=== PATIENT | female | born 1930 | race Caucasian/White ===

== ENCOUNTER 2016-10-12 18:51 | Inpatient (IN) | payer MEDICARE ==
[~2016-10-12] VITALS: Ht 152.4 cm; Wt 88.9 kg
[~2016-10-12 18:51] MED LIST: ALLO300T PO; ASPI81TA50 PO; CEPH-264 PO; CIPR500T PO; DOXY100T PO; FERR-26 PO; FURO40TA4 PO; LEVO75TA5 PO; PANT40TA3 PO; POTA20TA12 PO; SIMV80TA3 PO
[2016-10-12 19:31] LABS: BASO # 0.1 x10^3/uL (0.0-0.2); BASO % 0 % (0-3); EOS % 0 % (0-3); HEMOGLOBIN 13.3 g/dL (12.0-15.5); LYMPH # 0.8 x10^3/uL (1.0-4.8); LYMPH % 5 % (24-48); MEAN CORPUSCULAR HEMOGLOBIN 30 pg (25-35); MEAN CORPUSCULAR HGB CONC 33 g/dL (31-37); MEAN CORPUSCULAR VOLUME 91 fL (79-100); MONO % 3 % (0-9); NEUT % 91 % (31-73); PLATELET COUNT 227 x10^3/uL (140-400); RED BLOOD COUNT 4.39 x10^6/uL (3.50-5.40); WHITE BLOOD COUNT 16.2 x10^3/uL (4.0-11.0)
[2016-10-12 19:49] LABS: CALCIUM 9.3 mg/dL (8.5-10.1); CREATININE 1.3 mg/dL (0.6-1.0); POTASSIUM 4.3 mmol/L (3.5-5.1)
[2016-10-12 20:00] LABS: BILIRUBIN,URINE NEGATIVE (NEG); GLUCOSE,URINE NEGATIVE (NEG); NITRITE,URINE NEGATIVE (NEG); PROTEIN,URINE NEGATIVE (NEG-TRACE); UROBILINOGEN,URINE 0.2 mg/dL (0.2 mg/dL)
[2016-10-12 20:05] LABS: RBC,URINE >40 /HPF (0-2)
[2016-10-12 20:06] LABS: BACTERIA,URINE MANY /HPF (0-FEW); SQUAMOUS EPITHELIAL CELL,UR FEW /LPF
[2016-10-12 20:07] LABS: ALBUMIN 3.9 g/dL (3.4-5.0); ALBUMIN/GLOBULIN RATIO 1.1 (1.0-1.7); TOTAL BILIRUBIN 0.4 mg/dL (0.2-1.0); TOTAL PROTEIN 7.3 g/dL (6.4-8.2)
[2016-10-12] MEDS ORDERED: ACETAMINOPHEN 500 MG TABLET PO ONE (21:00)
[2016-10-12] MEDS ORDERED: IV NORMAL SALINE 1000ML BAG 1,000 ML IV ONE (21:00)
[2016-10-12] MEDS ORDERED: ONDANSETRON PF 4 MG/2 ML VIAL. IV ONE (21:00)
[2016-10-12] MEDS ORDERED: VANCOMYCIN 2 GM in IV NORMAL SALINE 500ML BAG 500 ML IV ONE (21:00)
[2016-10-12 21:01] LABS: PLT ESTIMATE ADEQUATE (ADEQUATE); TOXIC GRANULATION SLIGHT; TOXIC VACUOLATION SLIGHT
[2016-10-12] MEDS: fentaNYL PF VIAL 100 MCG/2 ML VIAL IV PRN (21:06)
[2016-10-12] MEDS: CEFEPIME HCL 2 GM in IV NORMAL SALINE 100ML 100 ML IV SCH (21:08)
[2016-10-12] MEDS ORDERED: ONDANSETRON PF 4 MG/2 ML VIAL. IV PRN (22:00)
[2016-10-12] MEDS ORDERED: DEXTROSE 50% 25 GM / 50ML DISP.SYRIN. IV PRN (22:00)
[2016-10-12] MEDS ORDERED: ACETAMINOPHEN 325 MG TABLET. PO PRN (22:00)
[2016-10-12 22:30] VITALS: BP 119/56
--- NOTE | 2016-10-12 23:09 | ED.ADGEN ---
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 Patient denies any abdominal pain, states she has occasional cough that is productive of clear sputum but is her typical cough, denies any focal weakness, numbness, tingling, travel, surgery, sick contacts or exposures. States he started feeling ill for the past 2 days. Decreased appetite, with chills and subjective fever reported at home. Denies any diarrhea, states she has occasional nausea, no vomiting. States that she's had increased swelling and redness in her bilateral lower extremities. Patient is relatively limited historian. Her primary care provider per report is Dr. Serrano. Patient noted be tachycardic, heart rate in the 1 teens, blood pressure is 170s over 80s. Oxygen saturation is 95-97% on room air, respiratory rate is 20 and unlabored. Review of Systems Review of Systems Constitutional: Subjective fever and chills, generalized malaise and weakness.. [] Eyes: Denies change in visual acuity. [] HENT: Denies nasal congestion or sore throat. [] Respiratory: Occasional cough, no shortness of breath. Cardiovascular: Denies chest pain or edema. [] GI: Denies abdominal pain, nausea, vomiting, bloody stools or diarrhea. [] : Denies dysuria. [] Musculoskeletal: Denies back pain, swelling and redness in the bilateral lower extremities. Integument: Denies rash. [] Neurologic: Denies headache, focal weakness or sensory changes. [] Endocrine: Denies polyuria or polydipsia. [] Lymphatic: Denies swollen glands. [] Psychiatric: Denies depression or anxiety. [] Current Medications Current Medications Current Medications Medications (Trade) Dose Ordered Sig/Dimple Start Time Stop Time Status Last Admin Dose Admin Acetaminophen (Tylenol) 1,000 mg 1X ONCE 10/12/16 21:00 10/12/16 21:01 DC 10/12/16 21:03 1,000 MG Cefepime HCl 2 gm/ Sodium Chloride 100 ml @ 200 mls/hr BID 10/12/16 21:00 10/12/16 21:08 200 MLS/HR Fentanyl Citrate (Fentanyl 2ml Vial) 25 mcg PRN Q15MIN PRN 10/12/16 20:45 10/13/16 20:44 10/12/16 21:06 25 MCG Ondansetron HCl (Zofran) 4 mg 1X ONCE 10/12/16 21:00 10/12/16 21:01 DC 10/12/16 21:07 4 MG Sodium Chloride 1,000 ml @ 1,000 mls/hr 1X ONCE 10/12/16 21:00 10/12/16 21:59 DC 10/12/16 21:01 1,000 MLS/HR Vancomycin HCl (Vanco Per Pharmacy) 1 each PRN DAILY PRN 10/12/16 20:45 Vancomycin HCl 2 gm/Sodium Chloride 500 ml @ 250 mls/hr 1X ONCE 10/12/16 21:00 10/12/16 22:59 10/12/16 21:43 250 MLS/HR Allergies Allergies Allergies Coded Allergies Type Severity Reaction Last Updated Verified No Known Drug Allergies 03/02/14 No Physical Exam Physical Exam Constitutional: Well developed, well nourished, mild distress secondary to pain , ill in appearance, flushed.. [] HENT: Normocephalic, atraumatic, bilateral external ears normal, oropharynx moist, no oral exudates, nose normal. [] Eyes: PERRLA, EOMI, conjunctiva normal, no discharge. [] Neck: Normal range of motion, no tenderness, supple, no stridor. [] Cardiovascular: Tachycardic, S1, S2, no murmur, no rubs or gallops. [] Lungs & Thorax: Diminished breath sounds at bases bilaterally, no wheezing, rhonchi or rales. [] Abdomen: Bowel sounds normal, soft, obese, no rebound, rigidity, no guarding no tenderness, no masses, no pulsatile masses. [] Skin: Warm, dry, patient with erythema, excoriations noted on the lower extremities bilaterally, patient with multiple large papular growths on the anterior anterior tibial region bilaterally, with mild edema. Legs are warm to touch. Back: No tenderness, no CVA tenderness. [] Extremities: No tenderness, no cyanosis, no clubbing, ROM intact, no edema. [] Neurologic: Alert and oriented X 3, normal motor function, normal sensory function, no focal deficits noted. [] Psychologic: Affect normal, judgement normal, mood normal. [] Current Patient Data Vital Signs Vital Signs Date Time Temp Pulse Resp B/P (MAP) Pulse Ox O2 Delivery O2 Flow Rate FiO2 10/12/16 21:16 102.2 112 22 130/63 (85) 94 Room Air 102.2 Lab Values Laboratory Tests Test 10/12/16 19:17 10/12/16 19:55 White Blood Count 16.2 x10^3/uL (4.0-11.0) H Red Blood Count 4.39 x10^6/uL (3.50-5.40) Hemoglobin 13.3 g/dL (12.0-15.5) Hematocrit 40.0 % (36.0-47.0) Mean Corpuscular Volume 91 fL (79-100) Mean Corpuscular Hemoglobin 30 pg (25-35) Mean Corpuscular Hemoglobin Concent 33 g/dL (31-37) Red Cell Distribution Width 15.0 % (11.5-14.5) H Platelet Count 227 x10^3/uL (140-400) Neutrophils (%) (Auto) 91 % (31-73) H Lymphocytes (%) (Auto) 5 % (24-48) L Monocytes (%) (Auto) 3 % (0-9) Eosinophils (%) (Auto) 0 % (0-3) Basophils (%) (Auto) 0 % (0-3) Neutrophils # (Auto) 14.7 x10^3uL (1.8-7.7) H Lymphocytes # (Auto) 0.8 x10^3/uL (1.0-4.8) L Monocytes # (Auto) 0.5 x10^3/uL (0.0-1.1) Eosinophils # (Auto) 0.0 x10^3/uL (0.0-0.7) Basophils # (Auto) 0.1 x10^3/uL (0.0-0.2) Segmented Neutrophils % 71 % (35-66) H Band Neutrophils % 16 % (0-9) H Lymphocytes % 9 % (24-48) L Monocytes % 4 % (0-10) Toxic Granulation Slight Toxic Vacuolation Slight Platelet Estimate Adequate (ADEQUATE) Sodium Level 142 mmol/L (136-145) Potassium Level 4.3 mmol/L (3.5-5.1) Chloride Level 104 mmol/L (98-107) Carbon Dioxide Level 27 mmol/L (21-32) Anion Gap 11 (6-14) Blood Urea Nitrogen 31 mg/dL (7-20) H Creatinine 1.3 mg/dL (0.6-1.0) H Estimated GFR (Cockcroft-Gault) 39.0 BUN/Creatinine Ratio 24 (6-20) H Glucose Level 123 mg/dL (70-99) H Lactic Acid Level 2.0 mmol/L (0.4-2.0) Calcium Level 9.3 mg/dL (8.5-10.1) Total Bilirubin 0.4 mg/dL (0.2-1.0) Aspartate Amino Transferase (AST) 20 U/L (15-37) Alanine Aminotransferase (ALT) 15 U/L (14-59) Alkaline Phosphatase 83 U/L (46-116) Total Protein 7.3 g/dL (6.4-8.2) Albumin 3.9 g/dL (3.4-5.0) Albumin/Globulin Ratio 1.1 (1.0-1.7) Urine Collection Type U cath Urine Color Yellow Urine Clarity Clear Urine pH 6.0 Urine Specific [place] <=1.005 Urine Protein Negative mg/dL (NEG-TRACE) Urine Glucose (UA) Negative mg/dL (NEG) Urine Ketones (Stick) Negative mg/dL (NEG) Urine Blood Large (NEG) Urine Nitrite Negative (NEG) Urine Bilirubin Negative (NEG) Urine Urobilinogen Dipstick 0.2 mg/dL (0.2 mg/dL) Urine Leukocyte Esterase Small (NEG) Urine RBC >40 /HPF (0-2) Urine WBC 1-4 /HPF (0-4) Urine Squamous Epithelial Cells Few /LPF Urine Bacteria Many /HPF (0-FEW) Urine Hyaline Casts Occasional /HPF Urine Mucus Slight /LPF Laboratory Tests 10/12/16 19:17 Laboratory Tests 10/12/16 19:17 EKG EKG EC: Sinus tachycardia, heart rate 103 beats minute, upright axis, QTC of 418, DE 174, QRS of 86, no ST elevations or depressions, contour normality is noted in the anterior septal leads, abnormal ECG, does not meet STEMI criteria. As interpreted by me. [] Radiology/Procedures Radiology/Procedures Chest x-ray: One view: Patient slightly rotated with an enlarged cardiac silhouette and a tortuous aorta, no discrete infiltrate, effusion, no pneumothorax, or bony or soft tissue normality identified. No significant change from previous chest x-ray 05/22/2014. As interpreted by me. [] Course & Med Decision Making Course & Med Decision Making Pertinent Labs and Imaging studies reviewed. (See chart for details) Patient tachycardic, febrile, had taken Tylenol home, received additional Tylenol in the ED. IV fluids also infused, patient with a lactic that was normal , reveal a gross cytosis of 16.2 with a bandemia and left shift. Chest x-ray was unremarkable, urinalysis did not reveal evidence of a large infection, examination of patient's lower extremities reveals erythema and swelling, patient is scratching her legs well, has excoriations, with multiple large papular lesions which have been present for several years. Will treat with cefepime and vancomycin, for cellulitis with sepsis. Patient is agreeable for admission to the hospital, and consultation with infectious disease due to previous, complicated course. Findings as above discussed with Dr. Dennis internal medicine, patient accepted to service as a full admission with plan as above. Bridge orders entered per discussion. Dragon Disclaimer Dragon Disclaimer This electronic medical record was generated, in whole or in part, using a voice recognition dictation system. Departure Impression: Primary Impression: Cellulitis of lower extremity Disposition: ADMITTED INPATIENT Admitting Physician: Yonatan Dennis Condition: IMPROVED ANIRUDH RIVERA DO October 12, 2016 23:09
[2016-10-12] MEDS: IV NORMAL SALINE 1000ML BAG 1,000 ML IV SCH (23:27)
--- NOTE | 2016-10-12 23:29 | RAD ---
Bilateral lower extremity venous doppler ultrasound History: Chronic bilateral lower extremity swelling Comparison: None Findings: Multiple grayscale, color, and duplex spectral analysis sonographic images were acquired of the bilateral lower extremity veins to evaluate for the presence of DVT. There is normal phasicity. Normal compression, color-flow, and augmentation is demonstrated from the bilateral common femoral to the popliteal veins. There is normal color flow of the proximal greater saphenous and profunda femoris veins. There is normal color flow of segments of the calf veins. Impression: 1. There is no evidence of deep venous thrombosis from the bilateral common femoral to popliteal veins. Electronically signed by: Sam Barton MD (10/12/2016 11:26 PM)
[2016-10-12] MEDS ORDERED: ALLO100T PO (23:34)
[2016-10-12] MEDS ORDERED: PANT40TA5 PO (23:34)
[2016-10-12] MEDS ORDERED: CITA10TA8 PO (23:34)
[2016-10-13] MEDS: fentaNYL PF VIAL 100 MCG/2 ML VIAL IV PRN (03:52)
[2016-10-13] MEDS: VANCOMYCIN PER PHARMACY MC PRN ×2 (03:57→13:45)
[2016-10-13 03:59] VITALS: BP 128/67
[2016-10-13 05:13] LABS: BASO % 0 % (0-3); EOS % 0 % (0-3); HEMATOCRIT 36.9 % (36.0-47.0); HEMOGLOBIN 11.9 g/dL (12.0-15.5); LYMPH # 0.7 x10^3/uL (1.0-4.8); LYMPH % 4 % (24-48); MEAN CORPUSCULAR HEMOGLOBIN 30 pg (25-35); MEAN CORPUSCULAR HGB CONC 32 g/dL (31-37); MEAN CORPUSCULAR VOLUME 93 fL (79-100); MONO % 3 % (0-9); NEUT % 93 % (31-73); PLATELET COUNT 201 x10^3/uL (140-400); RED BLOOD COUNT 3.96 x10^6/uL (3.50-5.40); RED CELL DISTRIBUTION WIDTH 14.9 % (11.5-14.5); WHITE BLOOD COUNT 19.5 x10^3/uL (4.0-11.0)
[2016-10-13 05:29] LABS: CALCIUM 8.2 mg/dL (8.5-10.1); CREATININE 1.3 mg/dL (0.6-1.0); POTASSIUM 4.2 mmol/L (3.5-5.1)
[2016-10-13 07:00] VITALS: BP 116/71
--- NOTE | 2016-10-13 07:40 | EKG ---
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
[2016-10-13] MEDS: IV NORMAL SALINE 1000ML BAG 1,000 ML IV SCH ×2 (07:56→14:30)
[2016-10-13] MEDS ORDERED: INSULIN ASPART 300 UNITS/3 ML INSULN.PEN SQ SCH (08:00)
--- NOTE | 2016-10-13 08:06 | RAD ---
EXAM: Chest, single view. HISTORY: Weakness. COMPARISON: 05/22/2014. FINDINGS: A frontal view of the chest is obtained. There is no infiltrate, effusion or pneumothorax. The heart is normal in size. There is superior migration of the right humeral head with decreased subacromial space due to a chronic rotator cuff tear. IMPRESSION: No acute pulmonary finding.
--- NOTE | 2016-10-13 09:36 | ACF ---
Admission Forms Criteria CELLULITIS Clinical Indications for Admission to Inpatient Care (Place 'X' for any and all applicable criteria): Admission is indicated for ANY ONE of the following(1)(2)(3)(4)(5): [ ]I. Limb-threatening infection [ ]II. High-risk comorbid condition as indicated by ANY ONE of the following: [ ]a) Uncontrolled diabetes (eg, HbA1c greater than 10% (0.1)) [ ]b) Cirrhosis [ ]c) Neutropenia [ ]d) Asplenia [ ]e) Immunosuppression [ ]f) Symptomatic heart failure [ ]III. Failure of outpatient therapy as indicated by ALL of the following: [ ]a) Progression or no improvement after adequate trial (minimum of 48 hours, with longer period for stable lower extremity infection) [ ]b) Adequate antibiotic regimen as indicated by use of ANY ONE of the following: [ ]i) First-generation cephalosporin (e.g., cephalexin) [ ]ii) Antistaphylococcal penicillin (e.g., dicloxacillin) [ ]iii) Penicillin-allergic patient regimen (clindamycin, extended-spectrum fluoroquinolone, or doxycycline) [ ]iv) Resistant organism (eg, methicillin-resistant Staphylococcus aureus) regimen (6) [ ]c) Outpatient intravenous therapy regimen is not appropriate due to ANY ONE of the following. (7)(8)(9)(10): [ ]i) It was tried and was not successful (eg, progression of infection). [ ]ii) It is not available or cannot be arranged in a clinically appropriate time frame (e.g., the next day). [ ]iii) Clinical presentation (eg, acuity of infection, rapidity of progression, confirmed or suspected bacteremia) is judged to require ALL of the following: [ ]1) Immediate initiation of intravenous therapy ( eg, cannot wait for next day) [ ]2) Intensity of patient monitoring and observation (eg, vital sign measurement, checks for infection progression) that cannot be provided at other than inpatient level of care [ ]IV. Mental status changes [ ]V. Bacteremia [X]. Hemodynamic instability [ ]VII. Suspected necrotizing soft tissue infection (e.g., gas in tissue)(11)( 12) [ ]VIII. Orbital infection (13)(14) [ ]IX. Associated surgical procedure (e.g., abscess drainage, debridement) not amenable to outpatient, emergency department, or observation care [ ]X. Cutaneous gangrene [ ]XI. High fever (temperature greater than 39.5 degrees C (103.1 degrees F) (oral)) not responsive to outpatient, emergency department, or observation care therapy [X]XIII. Inpatient admission required rather than observation care (Also use Cellulitis: Observation Care as appropriate) because of ANY ONE of the following : [ ]a) Periorbital or perineal infection that is severe or worsening [ ]b) Severe pain requiring acute inpatient management [X]c) IV fluid to replace significant ongoing (e.g., for over 24 hours) losses (greater than 3L/m2 per day) [ ]d) Compartment syndrome monitoring (17) [ ]e) Strict or protective (eg, laminar flow) isolation [ ]f) Urgent debridement or skin grafting [ ]g) Bone or joint debridement [ ]h) Immediate inpatient surgery [ ]i) Other condition, treatment or monitoring requiring inpatient admission Extended stay beyond goal length of stay may be needed for (1)(18): [ ]a) Necrotizing soft tissue infection or fasciitis [ ]b) Gram-negative infection [ ]c) Methicillin-resistant Staphylococcal aureus (MRSA) infection [ ]d) Peripheral venous insufficiency with cellulitis [ ]e) Extensive edema [ ]f) Sepsis or continued Hemodynamic instability [ ]g) Continued high fever or mental status change [ ]h) Bacteremia [ ]i) Active serious comorbid conditions ( eg, heart failure, renal insufficiency) The original [id number] content created by [facility] [employer] has been revised. The portions of the content which have been revised are identified through the use of italic text or in bold, and [facility] has neither reviewed nor approved the modified material. All other unmodified content is copyright [facility] [employer] Please see references footnoted in the original [facility] [employer] edition 2016 Admission Criteria Met?: Yes ERIC MALIN October 13, 2016 09:36
[2016-10-13] MEDS: CEFEPIME HCL 2 GM in IV NORMAL SALINE 100ML 100 ML IV SCH (10:00)
[2016-10-13] MEDS ORDERED: ACETAMINOPHEN 325 MG TABLET. PO PRN (10:15)
[2016-10-13] MEDS ORDERED: MORPHINE SULFATE 2 MG/ML DISP.SYRIN. IV PRN (10:15)
[2016-10-13] MEDS ORDERED: DOCUSATE SODIUM 100 MG CAPSULE. PO PRN (10:15)
[2016-10-13] MEDS ORDERED: hydrALAZINE 20 MG/ML VIAL. IVP PRN (10:15)
[2016-10-13 11:00] VITALS: BP 118/63
--- NOTE | 2016-10-13 12:44 | RAD ---
EXAM: Head and maxillofacial bone CT without contrast. HISTORY: Trauma. TECHNIQUE: Computed tomographic images of the head and maxillofacial bones were obtained without contrast. One or more of the following individualized dose reduction techniques were utilized for this examination: 1. Automated exposure control. 2. Adjustment of the mA and/or kV according to patient size. 3. Use of iterative reconstruction technique. COMPARISON: None. FINDINGS: Head: There is no acute or subacute hemorrhage. There is no mass effect or midline shift. There is no hydrocephalus. There is decreased attenuation within the cerebral white matter, likely due to chronic small vessel disease. No calvarial lesion is seen. The left mastoid air cells are clear. The right mastoid air cells are underpneumatized. Maxillofacial bones: No displaced fracture is seen. There is severe mucosal thickening involving the left maxillary sinus and sinus wall thickening due to the sequela of chronic sinusitis. There is obstruction of the left ostiomeatal unit. There are maxillary antrostomy/uncinectomy changes. There is no significant nasal septal deviation. No orbital lesion is seen. IMPRESSION: 1. No acute intracranial finding or evidence of acute maxillofacial bone trauma. 2. Decreased attenuation within the cerebral white matter, likely due to chronic small vessel disease. 3. Severe chronic left maxillary sinus disease at evidence of prior bilateral maxillary antrostomy/uncinectomy surgery.
--- NOTE | 2016-10-13 12:58 | RAD ---
EXAM: Cervical spine CT without contrast. HISTORY: Pain. TECHNIQUE: Computed tomographic images of the cervical spine were obtained without contrast. Multiplanar reformatting was performed. COMPARISON: 04/16/2012. FINDINGS: There is kyphosis centered at the cervicothoracic junction. There is slight anterolisthesis of C3 on C4, C4-C5, C5 on C6, C6 on C7 and C7 on T1. There is degenerative endplate remodeling with anterior predominant osteophytosis at the mid and lower cervical vertebral levels. There is additional endplate remodeling and facet arthropathy throughout the cervical spine. This is described in detail below. There is fusion of the right C2-C4 facet joints, degenerative in etiology. No suspicious lytic or chronic osseous lesion is seen. There is an erosion at the right base of the dens, a nonspecific finding which can be seen with rheumatoid arthropathy. At C2-C3, there is no stenosis. At C3-C4, there is endplate remodeling. There is severe right and moderate to severe left facet arthropathy. There is moderate right and mild left foraminal stenosis. At C4-C5, there is a disc bulge and endplate remodeling. There is mild to moderate left facet arthropathy. There is left radius and right uncovertebral arthropathy. There is moderate left greater than right foraminal stenosis. At C5-C6, there is a disc bulge and endplate osteophytosis. There is mild facet arthropathy. There is uncovertebral arthropathy. There is moderate lateral foraminal stenosis. At C6-C7, there is a disc bulge and endplate osteophytosis. There is mild right facet arthropathy. There is uncovertebral arthropathy. There is moderate right and mild left foraminal stenosis. There is mild central canal stenosis. IMPRESSION: 1. Multilevel degenerative change throughout the cervical spine, resulting in stenosis as described above. 2. No acute osseous finding. PQRS Compliance Statement: One or more of the following individualized dose reduction techniques were utilized for this examination: 1. Automated exposure control 2. Adjustment of the mA and/or kV according to patient size 3. Use of iterative reconstruction technique
--- NOTE | 2016-10-13 13:06 | PDOC ---
Infectious Disease Note Vital Sign Vital Signs Vital Signs Date Time Temp Pulse Resp B/P (MAP) Pulse Ox O2 Delivery O2 Flow Rate FiO2 10/13/16 11:00 98.3 66 20 118/63 (81) 96 98.3 10/13/16 07:00 Room Air Labs Lab Laboratory Tests Test 10/12/16 19:17 10/12/16 19:55 10/13/16 04:00 10/13/16 07:03 White Blood Count 16.2 x10^3/uL (4.0-11.0) 19.5 x10^3/uL (4.0-11.0) Red Blood Count 4.39 x10^6/uL (3.50-5.40) 3.96 x10^6/uL (3.50-5.40) Hemoglobin 13.3 g/dL (12.0-15.5) 11.9 g/dL (12.0-15.5) Hematocrit 40.0 % (36.0-47.0) 36.9 % (36.0-47.0) Mean Corpuscular Volume 91 fL (79-100) 93 fL (79-100) Mean Corpuscular Hemoglobin 30 pg (25-35) 30 pg (25-35) Mean Corpuscular Hemoglobin Concent 33 g/dL (31-37) 32 g/dL (31-37) Red Cell Distribution Width 15.0 % (11.5-14.5) 14.9 % (11.5-14.5) Platelet Count 227 x10^3/uL (140-400) 201 x10^3/uL (140-400) Neutrophils (%) (Auto) 91 % (31-73) 93 % (31-73) Lymphocytes (%) (Auto) 5 % (24-48) 4 % (24-48) Monocytes (%) (Auto) 3 % (0-9) 3 % (0-9) Eosinophils (%) (Auto) 0 % (0-3) 0 % (0-3) Basophils (%) (Auto) 0 % (0-3) 0 % (0-3) Neutrophils # (Auto) 14.7 x10^3uL (1.8-7.7) 18.2 x10^3uL (1.8-7.7) Lymphocytes # (Auto) 0.8 x10^3/uL (1.0-4.8) 0.7 x10^3/uL (1.0-4.8) Monocytes # (Auto) 0.5 x10^3/uL (0.0-1.1) 0.5 x10^3/uL (0.0-1.1) Eosinophils # (Auto) 0.0 x10^3/uL (0.0-0.7) 0.0 x10^3/uL (0.0-0.7) Basophils # (Auto) 0.1 x10^3/uL (0.0-0.2) 0.0 x10^3/uL (0.0-0.2) Segmented Neutrophils % 71 % (35-66) Band Neutrophils % 16 % (0-9) Lymphocytes % 9 % (24-48) Monocytes % 4 % (0-10) Toxic Granulation Slight Toxic Vacuolation Slight Platelet Estimate Adequate (ADEQUATE) Sodium Level 142 mmol/L (136-145) 144 mmol/L (136-145) Potassium Level 4.3 mmol/L (3.5-5.1) 4.2 mmol/L (3.5-5.1) Chloride Level 104 mmol/L (98-107) 106 mmol/L (98-107) Carbon Dioxide Level 27 mmol/L (21-32) 25 mmol/L (21-32) Anion Gap 11 (6-14) 13 (6-14) Blood Urea Nitrogen 31 mg/dL (7-20) 32 mg/dL (7-20) Creatinine 1.3 mg/dL (0.6-1.0) 1.3 mg/dL (0.6-1.0) Estimated GFR (Cockcroft-Gault) 39.0 39.0 BUN/Creatinine Ratio 24 (6-20) Glucose Level 123 mg/dL (70-99) 126 mg/dL (70-99) Lactic Acid Level 2.0 mmol/L (0.4-2.0) Calcium Level 9.3 mg/dL (8.5-10.1) 8.2 mg/dL (8.5-10.1) Total Bilirubin 0.4 mg/dL (0.2-1.0) Aspartate Amino Transf (AST/SGOT) 20 U/L (15-37) Alanine Aminotransferase (ALT/SGPT) 15 U/L (14-59) Alkaline Phosphatase 83 U/L (46-116) Total Protein 7.3 g/dL (6.4-8.2) Albumin 3.9 g/dL (3.4-5.0) Albumin/Globulin Ratio 1.1 (1.0-1.7) Urine Collection Type U cath Urine Color Yellow Urine Clarity Clear Urine pH 6.0 Urine Specific [place] <=1.005 Urine Protein Negative mg/dL (NEG-TRACE) Urine Glucose (UA) Negative mg/dL (NEG) Urine Ketones (Stick) Negative mg/dL (NEG) Urine Blood Large (NEG) Urine Nitrite Negative (NEG) Urine Bilirubin Negative (NEG) Urine Urobilinogen Dipstick 0.2 mg/dL (0.2 mg/dL) Urine Leukocyte Esterase Small (NEG) Urine RBC >40 /HPF (0-2) Urine WBC 1-4 /HPF (0-4) Urine Squamous Epithelial Cells Few /LPF Urine Bacteria Many /HPF (0-FEW) Urine Hyaline Casts Occasional /HPF Urine Mucus Slight /LPF Glucose (Fingerstick) 131 mg/dL (70-99) Objective Assessment Fever Leukocytosis Chronic sinusitis on CT Chronic lymphedema lower extremities Neck pain h/o fall CKD. h/o right nephrectomy h/o Enterobacter (Sen aminoglycosides, carbapenems & quinolones) in past but did ok with previous Keflex. Plan Plan of Care vanc and cefepime agree for now Monitor WBC, Cr and temp f/u cultures Reviewed previous notes from previous admits Thank you Attending Co-Sign Attending Co-Sign The patient was seen and interviewed as well as examined at the bedside. The chart was reviewed. The case was discussed. Agree with the plan of care. MICHAEL PEREZ APRN October 13, 2016 13:06 OCTAVIANO OVALLE MD October 13, 2016 14:51
--- NOTE | 2016-10-13 13:09 | PDOC1 ---
History and Physical Date of Admission Date of Admission 10/12/16 Identification/Chief Complaint Chief Complaint BL LEG REdness, pain Problems: Source Source: Chart review, Patient History of Present Illness History of Present Illness HPI Patient is a 85 year old woman, history of nephrectomy , cervical cancer, hypertension, type 2 diabetes mellitus, gout, recurrent leg cellulitis, came to ER for bl leg pain and redness for 2 days. Pt has been have recurrent bl leg cellulitis, with chronic lymphedema. She also has unsteady gait, easy fall, and fell 1 month ago with neck pain, but stated wo image. She also c/o left facial pain. denies fever, but T 102 here. No fever, chills, N/V, has cough last night, non productive. Past Medical History Cardiovascular: HTN, Hyperlipidemia GI: GERD Rheumatologic: Gout Renal/: Chronic renal failure Endocrine: Hypothyroidism Past Surgical History Past Surgical History Appendectomy, Cancer Surgery, Hysterectomy, Oophorectomy, Other Additional Past Surgical Histo: RIGHT NEPHRECTOMY Past Surgical History: Hysterectomy Family History Family History: Hypertension Social History Smoke: No ALCOHOL: none Drugs: None Current Problem List Problem List Problems Medical Problems: (1) Cellulitis of lower extremity Status: Acute Current Medications Current Medications Current Medications Medications (Trade) Dose Ordered Sig/Dimple Start Time Stop Time Status Last Admin Dose Admin Acetaminophen (Tylenol) 650 mg PRN Q6HRS PRN 10/13/16 10:15 Allopurinol (Zyloprim) 100 mg DAILY 10/13/16 12:00 Aspirin (Ecotrin) 81 mg DAILY 10/13/16 12:00 Cefepime HCl 2 gm/ Sodium Chloride 100 ml @ 200 mls/hr BID 10/12/16 21:00 10/13/16 10:00 200 MLS/HR Citalopram Hydrobromide (CeleXA) 10 mg DAILY 10/13/16 12:00 Dextrose (Dextrose 50%-Water Syringe) 12.5 gm PRN Q15MIN PRN 10/12/16 22:00 Docusate Sodium (Colace) 100 mg PRN DAILY PRN 10/13/16 10:15 Fentanyl Citrate (Fentanyl 2ml Vial) 25 mcg PRN Q15MIN PRN 10/12/16 20:45 10/13/16 07:55 DC 10/13/16 03:52 25 MCG Furosemide (Lasix) 40 mg DAILY 10/13/16 12:00 Hydralazine HCl (Apresoline) 10 mg PRN Q4HRS PRN 10/13/16 10:15 Insulin Aspart (NovoLOG) 0-5 UNITS TIDWMEALS 10/13/16 08:00 10/13/16 10:55 DC Levothyroxine Sodium (Synthroid) 75 mcg DAILY07 10/13/16 15:30 Morphine Sulfate 2 mg PRN Q2HR PRN 10/13/16 10:15 Ondansetron HCl (Zofran) 4 mg PRN Q6HRS PRN 10/13/16 10:15 Pantoprazole Sodium (Protonix) 40 mg DAILYAC 10/13/16 11:30 Simvastatin (Zocor) 80 mg QHS 10/13/16 21:00 Sodium Chloride 1,000 ml @ 125 mls/hr Q8H 10/12/16 22:30 10/13/16 22:29 10/13/16 07:56 125 MLS/HR Tramadol HCl (Ultram) 50 mg PRN Q6HRS PRN 10/13/16 10:15 Vancomycin HCl 1 each 1X ONCE 10/14/16 21:30 10/14/16 21:31 Vancomycin HCl (Vanco Per Pharmacy) 1 each PRN DAILY PRN 10/12/16 20:45 10/13/16 03:57 1 EACH Vancomycin HCl 1.25 gm/Sodium Chloride 250 ml @ 167 mls/hr Q24H 10/13/16 22:00 Vancomycin HCl 2 gm/Sodium Chloride 500 ml @ 250 mls/hr 1X ONCE 10/12/16 21:00 10/12/16 22:59 DC 10/12/16 21:43 250 MLS/HR Allergies Allergies Allergies Coded Allergies Type Severity Reaction Last Updated Verified No Known Drug Allergies 03/02/14 No ROS Review of System CONSTITUTIONAL: No fever or chills EYES: No recent changes SKIN: No rash or itching CARDIOVASCULAR: No chest pain, syncope, palpitations, or edema RESPIRATORY: No SOB or cough GASTROINTESTINAL: No nausea, vomiting or abdominal pain NEUROLOGICAL: No headaches or weakness ENDOCRINE: No cold or heat intolerance GENITOURINARY: No urgency or frequency of urination MUSCULOSKELETAL: No back pain or joint pain LYMPHATICS: No enlarged lymph nodes PSYCHIATRIC: No anxiety or depression Physical Exam Physical Exam GEN.: No apparent distress. Alert and oriented. HEENT: Head is normocephalic, atraumatic NECK: Supple. LUNGS: Clear to auscultation. HEART: RRR, S1, S2 present. Peripheral pulses intact ABDOMEN: Soft, nontender. Positive bowel sounds. EXTREMITIES: Without any cyanosis. bl lower ext chronic lymphedema with some skin lesions. bl leg moderate erythematous, tenderness NEUROLOGIC: Normal speech, normal tone PSYCHIATRIC: Normal affect, normal mood. SKIN: No ulcerations Vitals Vitals Vital Signs Date Time Temp Pulse Resp B/P (MAP) Pulse Ox O2 Delivery O2 Flow Rate FiO2 10/13/16 11:00 98.3 66 20 118/63 (81) 96 98.3 10/13/16 07:00 Room Air Labs Labs Laboratory Tests Test 10/12/16 19:17 10/12/16 19:55 10/13/16 04:00 10/13/16 07:03 White Blood Count 16.2 x10^3/uL (4.0-11.0) 19.5 x10^3/uL (4.0-11.0) Red Blood Count 4.39 x10^6/uL (3.50-5.40) 3.96 x10^6/uL (3.50-5.40) Hemoglobin 13.3 g/dL (12.0-15.5) 11.9 g/dL (12.0-15.5) Hematocrit 40.0 % (36.0-47.0) 36.9 % (36.0-47.0) Mean Corpuscular Volume 91 fL (79-100) 93 fL (79-100) Mean Corpuscular Hemoglobin 30 pg (25-35) 30 pg (25-35) Mean Corpuscular Hemoglobin Concent 33 g/dL (31-37) 32 g/dL (31-37) Red Cell Distribution Width 15.0 % (11.5-14.5) 14.9 % (11.5-14.5) Platelet Count 227 x10^3/uL (140-400) 201 x10^3/uL (140-400) Neutrophils (%) (Auto) 91 % (31-73) 93 % (31-73) Lymphocytes (%) (Auto) 5 % (24-48) 4 % (24-48) Monocytes (%) (Auto) 3 % (0-9) 3 % (0-9) Eosinophils (%) (Auto) 0 % (0-3) 0 % (0-3) Basophils (%) (Auto) 0 % (0-3) 0 % (0-3) Neutrophils # (Auto) 14.7 x10^3uL (1.8-7.7) 18.2 x10^3uL (1.8-7.7) Lymphocytes # (Auto) 0.8 x10^3/uL (1.0-4.8) 0.7 x10^3/uL (1.0-4.8) Monocytes # (Auto) 0.5 x10^3/uL (0.0-1.1) 0.5 x10^3/uL (0.0-1.1) Eosinophils # (Auto) 0.0 x10^3/uL (0.0-0.7) 0.0 x10^3/uL (0.0-0.7) Basophils # (Auto) 0.1 x10^3/uL (0.0-0.2) 0.0 x10^3/uL (0.0-0.2) Segmented Neutrophils % 71 % (35-66) Band Neutrophils % 16 % (0-9) Lymphocytes % 9 % (24-48) Monocytes % 4 % (0-10) Toxic Granulation Slight Toxic Vacuolation Slight Platelet Estimate Adequate (ADEQUATE) Sodium Level 142 mmol/L (136-145) 144 mmol/L (136-145) Potassium Level 4.3 mmol/L (3.5-5.1) 4.2 mmol/L (3.5-5.1) Chloride Level 104 mmol/L (98-107) 106 mmol/L (98-107) Carbon Dioxide Level 27 mmol/L (21-32) 25 mmol/L (21-32) Anion Gap 11 (6-14) 13 (6-14) Blood Urea Nitrogen 31 mg/dL (7-20) 32 mg/dL (7-20) Creatinine 1.3 mg/dL (0.6-1.0) 1.3 mg/dL (0.6-1.0) Estimated GFR (Cockcroft-Gault) 39.0 39.0 BUN/Creatinine Ratio 24 (6-20) Glucose Level 123 mg/dL (70-99) 126 mg/dL (70-99) Lactic Acid Level 2.0 mmol/L (0.4-2.0) Calcium Level 9.3 mg/dL (8.5-10.1) 8.2 mg/dL (8.5-10.1) Total Bilirubin 0.4 mg/dL (0.2-1.0) Aspartate Amino Transf (AST/SGOT) 20 U/L (15-37) Alanine Aminotransferase (ALT/SGPT) 15 U/L (14-59) Alkaline Phosphatase 83 U/L (46-116) Total Protein 7.3 g/dL (6.4-8.2) Albumin 3.9 g/dL (3.4-5.0) Albumin/Globulin Ratio 1.1 (1.0-1.7) Urine Collection Type U cath Urine Color Yellow Urine Clarity Clear Urine pH 6.0 Urine Specific [place] <=1.005 Urine Protein Negative mg/dL (NEG-TRACE) Urine Glucose (UA) Negative mg/dL (NEG) Urine Ketones (Stick) Negative mg/dL (NEG) Urine Blood Large (NEG) Urine Nitrite Negative (NEG) Urine Bilirubin Negative (NEG) Urine Urobilinogen Dipstick 0.2 mg/dL (0.2 mg/dL) Urine Leukocyte Esterase Small (NEG) Urine RBC >40 /HPF (0-2) Urine WBC 1-4 /HPF (0-4) Urine Squamous Epithelial Cells Few /LPF Urine Bacteria Many /HPF (0-FEW) Urine Hyaline Casts Occasional /HPF Urine Mucus Slight /LPF Glucose (Fingerstick) 131 mg/dL (70-99) Laboratory Tests Test 10/12/16 19:17 10/12/16 19:55 10/13/16 04:00 10/13/16 07:03 White Blood Count 16.2 x10^3/uL (4.0-11.0) 19.5 x10^3/uL (4.0-11.0) Red Blood Count 4.39 x10^6/uL (3.50-5.40) 3.96 x10^6/uL (3.50-5.40) Hemoglobin 13.3 g/dL (12.0-15.5) 11.9 g/dL (12.0-15.5) Hematocrit 40.0 % (36.0-47.0) 36.9 % (36.0-47.0) Mean Corpuscular Volume 91 fL (79-100) 93 fL (79-100) Mean Corpuscular Hemoglobin 30 pg (25-35) 30 pg (25-35) Mean Corpuscular Hemoglobin Concent 33 g/dL (31-37) 32 g/dL (31-37) Red Cell Distribution Width 15.0 % (11.5-14.5) 14.9 % (11.5-14.5) Platelet Count 227 x10^3/uL (140-400) 201 x10^3/uL (140-400) Neutrophils (%) (Auto) 91 % (31-73) 93 % (31-73) Lymphocytes (%) (Auto) 5 % (24-48) 4 % (24-48) Monocytes (%) (Auto) 3 % (0-9) 3 % (0-9) Eosinophils (%) (Auto) 0 % (0-3) 0 % (0-3) Basophils (%) (Auto) 0 % (0-3) 0 % (0-3) Neutrophils # (Auto) 14.7 x10^3uL (1.8-7.7) 18.2 x10^3uL (1.8-7.7) Lymphocytes # (Auto) 0.8 x10^3/uL (1.0-4.8) 0.7 x10^3/uL (1.0-4.8) Monocytes # (Auto) 0.5 x10^3/uL (0.0-1.1) 0.5 x10^3/uL (0.0-1.1) Eosinophils # (Auto) 0.0 x10^3/uL (0.0-0.7) 0.0 x10^3/uL (0.0-0.7) Basophils # (Auto) 0.1 x10^3/uL (0.0-0.2) 0.0 x10^3/uL (0.0-0.2) Segmented Neutrophils % 71 % (35-66) Band Neutrophils % 16 % (0-9) Lymphocytes % 9 % (24-48) Monocytes % 4 % (0-10) Toxic Granulation Slight Toxic Vacuolation Slight Platelet Estimate Adequate (ADEQUATE) Sodium Level 142 mmol/L (136-145) 144 mmol/L (136-145) Potassium Level 4.3 mmol/L (3.5-5.1) 4.2 mmol/L (3.5-5.1) Chloride Level 104 mmol/L (98-107) 106 mmol/L (98-107) Carbon Dioxide Level 27 mmol/L (21-32) 25 mmol/L (21-32) Anion Gap 11 (6-14) 13 (6-14) Blood Urea Nitrogen 31 mg/dL (7-20) 32 mg/dL (7-20) Creatinine 1.3 mg/dL (0.6-1.0) 1.3 mg/dL (0.6-1.0) Estimated GFR (Cockcroft-Gault) 39.0 39.0 BUN/Creatinine Ratio 24 (6-20) Glucose Level 123 mg/dL (70-99) 126 mg/dL (70-99) Lactic Acid Level 2.0 mmol/L (0.4-2.0) Calcium Level 9.3 mg/dL (8.5-10.1) 8.2 mg/dL (8.5-10.1) Total Bilirubin 0.4 mg/dL (0.2-1.0) Aspartate Amino Transf (AST/SGOT) 20 U/L (15-37) Alanine Aminotransferase (ALT/SGPT) 15 U/L (14-59) Alkaline Phosphatase 83 U/L (46-116) Total Protein 7.3 g/dL (6.4-8.2) Albumin 3.9 g/dL (3.4-5.0) Albumin/Globulin Ratio 1.1 (1.0-1.7) Urine Collection Type U cath Urine Color Yellow Urine Clarity Clear Urine pH 6.0 Urine Specific [place] <=1.005 Urine Protein Negative mg/dL (NEG-TRACE) Urine Glucose (UA) Negative mg/dL (NEG) Urine Ketones (Stick) Negative mg/dL (NEG) Urine Blood Large (NEG) Urine Nitrite Negative (NEG) Urine Bilirubin Negative (NEG) Urine Urobilinogen Dipstick 0.2 mg/dL (0.2 mg/dL) Urine Leukocyte Esterase Small (NEG) Urine RBC >40 /HPF (0-2) Urine WBC 1-4 /HPF (0-4) Urine Squamous Epithelial Cells Few /LPF Urine Bacteria Many /HPF (0-FEW) Urine Hyaline Casts Occasional /HPF Urine Mucus Slight /LPF Glucose (Fingerstick) 131 mg/dL (70-99) VTE Prophylaxis Ordered VTE Prophylaxis Devices: Yes VTE Pharmacological Prophylaxi: Yes Assessment/Plan Assessment/Plan 1. bl leg cellulitis 2. sepsis with 1 3. neck pain post fall 4. left facial pain 5. htn 6. hld 7. GERD 8. ckd3 with h/o nephrectomy 9. h/o cervical Ca 10. bl leg chronic lymphedema 11. morbid obesity plan: id, neurosx consult head CT, NECK ,facial cont vanco, cefepime for now cont home meds dvt ppx ptot ISAURA ABBOTT MD October 13, 2016 13:08
[2016-10-13] MEDS ORDERED: ENOXAPARIN 40 MG/0.4 ML SYRINGE. SQ SCH (13:15)
[2016-10-13] MEDS: FUROSEMIDE 40 MG TABLET. PO SCH (14:05)
[2016-10-13] MEDS: PANTOPRAZOLE 40 MG TABLET.DR. PO SCH (14:05)
[2016-10-13] MEDS: CITALOPRAM 10 MG TABLET. PO SCH (14:07)
[2016-10-13] MEDS: ALLOPURINOL 100 MG TABLET. PO SCH (14:07)
[2016-10-13] MEDS: ASPIRIN ENTERIC COATED 81 MG TABLET.DR. PO SCH (14:07)
[2016-10-13] MEDS: ENOXAPARIN 30 MG/0.3 ML SYRINGE. SQ SCH (14:08)
[2016-10-13] MEDS: traMADol 50 MG TABLET PO PRN (14:49)
[2016-10-13 15:00] VITALS: BP 120/72
[2016-10-13] MEDS: LEVOTHYROXINE 75 MCG TABLET PO SCH (15:30)
[2016-10-13] MEDS: MEROPENEM 500 MG in IV NORMAL SALINE 50ML 50 ML IV SCH (16:47)
[2016-10-13 19:00] VITALS: BP 104/56
[2016-10-13] MEDS: SIMVASTATIN 40 MG TABLET. PO SCH (20:51)
[2016-10-13] MEDS ORDERED: VANCOMYCIN 1.25 GM in IV NORMAL SALINE 250ML 250 ML IV SCH (22:00)
[2016-10-13 23:00] VITALS: BP 117/65
[2016-10-14] MEDS: MEROPENEM 500 MG in IV NORMAL SALINE 50ML 50 ML IV SCH ×4 (00:02→18:01)
[2016-10-14 03:00] VITALS: BP 102/55
--- NOTE | 2016-10-14 04:51 | CONS ---
DATE OF CONSULTATION: 10/12/2016 REFERRING PHYSICIAN: Dr. Angel. REASON FOR CONSULTATION: Fever and cellulitis. HISTORY OF PRESENT ILLNESS: This patient is an 85-year-old female with a history of chronic lymphedema of the lower extremities, who has not been feeling well for the past week or so. She reports subjective fevers, generalized aches and chills. She has been feeling increasingly weak with leg pain and redness over the past 2 days. She has a history of multiple occurrences of leg cellulitis off and on over the past 20 years. The last episode was about 2-1/2 years ago. She feels she is having another episode. The patient says she fell a few months ago and is having some neck pain, worse with movement. Denies headache, sinus congestion or sore throat. Her left ear has been hurting. Denies tooth pain. She has been having a productive cough off and on for several months. She has been on 3 rounds of antibiotics within the last 6 months. She has urinary incontinence and wears Depends. Denies dysuria or back pain. Denies rash. PAST MEDICAL HISTORY: Multiple recurrent cellulitis of the lower extremities. Enterobacter cloacae sensitive to quinolones, carbapenems, aminoglycosides and tetracycline. Peripheral vascular disease, chronic lymphedema of the lower extremities, chronic kidney disease, gastroesophageal reflux disease, cervical cancer, obesity, gout, hypothyroidism, hyperlipidemia. PAST SURGICAL HISTORY: Right nephrectomy secondary to nicking of ureter during hysterectomy. Appendectomy. SOCIAL HISTORY: The patient is . Nonsmoker. 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 ALLERGIES: No known drug allergies. MEDICATIONS: Vancomycin and cefepime. Other medications are available and have been reviewed on the J[facility]. REVIEW OF SYSTEMS: Per HPI. Otherwise, all other review of systems negative. PHYSICAL EXAMINATION: GENERAL: female, lying down, in no apparent distress. VITAL SIGNS: Temperature is 98.3, T-max 102.2, blood pressure 118/63, heart rate 66, respiratory rate 20, pulse oximetry is 96% on room air. Weight is 196.295. BMI 38.3. HEENT: Pupils equally round and reactive. Normal conjunctivae. Oral mucosa is pink and dry. Bacterial overgrowth on the tongue noted. NECK: Limited active range of motion. No adenopathy. LUNGS: Clear to auscultation. HEART: Normal S1 and S2. ABDOMEN: Obese, bowel sounds are present, soft, nontender. EXTREMITIES: Bilateral lower extremity lymphedema with multiple large cutaneous nodules, greater on the right. No redness. No cyanosis. SKIN: Without rash. Warm to touch. NEUROLOGIC: Alert and oriented x 3. Moves all extremities. LABORATORY DATA: Today's WBC 19.5 from 16.2 on admission, hemoglobin 11.9, platelet count 201,000, segs 71%, bands 16%. Electrolytes are unremarkable. Creatinine 1.3, BUN 32, glucose 126. Lactic acid 2.0. Total bilirubin 0.4, AST 20, ALT 15, albumin 3.9. Urinalysis shows wbc's 1-4, leukocyte esterase small, nitrite negative, bacteria many, blood large. Urine and blood cultures pending. Chest x-ray shows no infiltrate, effusion or pneumothorax. Bilateral lower extremity venous Doppler ultrasound shows no evidence of deep venous thrombosis. Cervical spine CT revealed multilevel degenerative changes throughout the cervical spine resulting in stenosis. No acute osseous findings. Head/facial bone CT revealed no acute intracranial findings or evidence of acute maxillofacial bone trauma; severe chronic left maxillary sinus disease, has evidence of prior bilateral maxillary antrostomy/uncinectomy surgery. IMPRESSION: 1. Fever. 2. Leukocytosis. 3. Chronic sinusitis on CT. 4. Chronic lymphedema of the lower extremities. 5. Neck pain with a history of fall. Stenosis on CT. 6. Chronic kidney disease. PLAN: With increased white count, we will change to meropenem and continue the vancomycin. Monitor WBC count, creatinine and temperature. We will follow up on cultures. Previous notes from prior admissions reviewed. We will continue to follow along. Thank you, Dr. Angel for asking us to participate in this patient's care. Should you have further questions or concerns, please call. The patient seen, examined and plan of care implemented by Dr. Octaviano Ovalle. OCTAVIANO OVALLE MD DR: ARLENE/marybel JOB#: [id number] / [id number] GAYLA
[2016-10-14 05:21] LABS: BASO % 0 % (0-3); EOS % 1 % (0-3); HEMATOCRIT 33.7 % (36.0-47.0); HEMOGLOBIN 11.2 g/dL (12.0-15.5); LYMPH # 0.7 x10^3/uL (1.0-4.8); LYMPH % 6 % (24-48); MEAN CORPUSCULAR HEMOGLOBIN 31 pg (25-35); MEAN CORPUSCULAR HGB CONC 33 g/dL (31-37); MEAN CORPUSCULAR VOLUME 92 fL (79-100); MONO % 6 % (0-9); NEUT % 88 % (31-73); PLATELET COUNT 174 x10^3/uL (140-400); RED BLOOD COUNT 3.66 x10^6/uL (3.50-5.40); RED CELL DISTRIBUTION WIDTH 15.3 % (11.5-14.5); WHITE BLOOD COUNT 13.2 x10^3/uL (4.0-11.0)
[2016-10-14 05:23] LABS: CALCIUM 8.2 mg/dL (8.5-10.1); CREATININE 1.4 mg/dL (0.6-1.0); GFR 35.8; POTASSIUM 4.5 mmol/L (3.5-5.1)
[2016-10-14] MEDS: LEVOTHYROXINE 75 MCG TABLET PO SCH (06:17)
[2016-10-14] MEDS: traMADol 50 MG TABLET PO PRN (06:17)
[2016-10-14 07:00] VITALS: BP 122/60
[2016-10-14] MEDS: PANTOPRAZOLE 40 MG TABLET.DR. PO SCH (09:02)
[2016-10-14] MEDS: ASPIRIN ENTERIC COATED 81 MG TABLET.DR. PO SCH (09:02)
[2016-10-14] MEDS: ALLOPURINOL 100 MG TABLET. PO SCH (09:02)
[2016-10-14] MEDS: FUROSEMIDE 40 MG TABLET. PO SCH (09:02)
[2016-10-14] MEDS: CITALOPRAM 10 MG TABLET. PO SCH (09:03)
--- NOTE | 2016-10-14 09:42 | PDOC ---
Infectious Disease Note Subjective Subjective Not feeling well, hurts all over, feels tramadol is the cause Legs still hurt, but not as bad. Fever Tmax 102.2 Up set stomach earlier ROS ROS GEN: Denies chills, sweats HEENT: Denies blurred vision, sore throat CV: Denies chest pain RESP: Denies shortness of air NEURO: Denies confusion, dizziness Vital Sign Vital Signs Vital Signs Date Time Temp Pulse Resp B/P (MAP) Pulse Ox O2 Delivery O2 Flow Rate FiO2 10/14/16 07:00 97.0 64 22 122/60 (80) 98 Room Air 97.0 Physical Exam PHYSICAL EXAM GENERAL: Sitting on side of bed, NAD NECK: Limited active range of motion. No adenopathy. LUNGS: Clear to auscultation. HEART: Normal S1 and S2. ABDOMEN: Obese, bowel sounds are present, soft, nontender. EXTREMITIES: Bilateral lower extremity lymphedema with multiple large cutaneous nodules, greater on the right. No redness. No cyanosis. SKIN: Without rash. Warm to touch. NEUROLOGIC: Alert and oriented x 3. Moves all extremities. Labs Lab Laboratory Tests Test 10/14/16 04:55 White Blood Count 13.2 x10^3/uL (4.0-11.0) Red Blood Count 3.66 x10^6/uL (3.50-5.40) Hemoglobin 11.2 g/dL (12.0-15.5) Hematocrit 33.7 % (36.0-47.0) Mean Corpuscular Volume 92 fL (79-100) Mean Corpuscular Hemoglobin 31 pg (25-35) Mean Corpuscular Hemoglobin Concent 33 g/dL (31-37) Red Cell Distribution Width 15.3 % (11.5-14.5) Platelet Count 174 x10^3/uL (140-400) Neutrophils (%) (Auto) 88 % (31-73) Lymphocytes (%) (Auto) 6 % (24-48) Monocytes (%) (Auto) 6 % (0-9) Eosinophils (%) (Auto) 1 % (0-3) Basophils (%) (Auto) 0 % (0-3) Neutrophils # (Auto) 11.6 x10^3uL (1.8-7.7) Lymphocytes # (Auto) 0.7 x10^3/uL (1.0-4.8) Monocytes # (Auto) 0.7 x10^3/uL (0.0-1.1) Eosinophils # (Auto) 0.1 x10^3/uL (0.0-0.7) Basophils # (Auto) 0.0 x10^3/uL (0.0-0.2) Sodium Level 145 mmol/L (136-145) Potassium Level 4.5 mmol/L (3.5-5.1) Chloride Level 108 mmol/L (98-107) Carbon Dioxide Level 26 mmol/L (21-32) Anion Gap 11 (6-14) Blood Urea Nitrogen 30 mg/dL (7-20) Creatinine 1.4 mg/dL (0.6-1.0) Estimated GFR (Cockcroft-Gault) 35.8 Glucose Level 104 mg/dL (70-99) Calcium Level 8.2 mg/dL (8.5-10.1) Micro BLOOD CULTURE Preliminary NO GROWTH AFTER 1 DAY Objective Assessment Fever - better Leukocytosis - better Chronic sinusitis on CT Chronic lymphedema lower extremities Neck pain h/o fall. 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 h/o right nephrectomy h/o Enterobacter (Sen aminoglycosides, carbapenems & quinolones). Plan Plan of Care D/c vanc Cont meropenem Neurosurg eval for neck Monitor WBC, Cr and temp BC NGTD Attending Co-Sign Attending Co-Sign The patient was seen and interviewed as well as examined at the bedside. The chart was reviewed. The case was discussed. Agree with the plan of care. MICHAEL PEREZ APRN October 14, 2016 09:42 OCTAVIANO OVALLE MD October 14, 2016 13:50
[2016-10-14 11:00] VITALS: BP 129/66
--- NOTE | 2016-10-14 12:59 | PDOC ---
PROGRESS NOTES Chief Complaint Chief Complaint 1. bl leg cellulitis 2. sepsis with 1 3. neck pain post fall 4. left facial pain 5. htn 6. hld 7. GERD 8. ckd3 with h/o nephrectomy 9. h/o cervical Ca 10. bl leg chronic lymphedema 11. morbid obesity 12. chronic sinusitis on CT plan: id, neurosx consult, will get dr. Upton consult head CT, NECK ,facial cont vanco, cefepime for now cont home meds dvt ppx pain control ptot History of Present Illness History of Present Illness bl leg erythema better neck pain better wbc better Vitals Vitals Vital Signs Date Time Temp Pulse Resp B/P (MAP) Pulse Ox O2 Delivery O2 Flow Rate FiO2 10/14/16 11:00 97.4 88 24 129/66 (87) 96 Room Air 97.4 Physical Exam Physical Exam bl leg chronic lymphedema with nodules, bl leg mild erythma General: Alert, Oriented X3, Cooperative Heart: Regular rate, Normal S1, Normal S2 Lungs: Clear Abdomen: Normal bowel sounds, Soft Extremities: No clubbing Labs LABS Laboratory Tests Test 10/14/16 04:55 White Blood Count 13.2 x10^3/uL (4.0-11.0) Red Blood Count 3.66 x10^6/uL (3.50-5.40) Hemoglobin 11.2 g/dL (12.0-15.5) Hematocrit 33.7 % (36.0-47.0) Mean Corpuscular Volume 92 fL (79-100) Mean Corpuscular Hemoglobin 31 pg (25-35) Mean Corpuscular Hemoglobin Concent 33 g/dL (31-37) Red Cell Distribution Width 15.3 % (11.5-14.5) Platelet Count 174 x10^3/uL (140-400) Neutrophils (%) (Auto) 88 % (31-73) Lymphocytes (%) (Auto) 6 % (24-48) Monocytes (%) (Auto) 6 % (0-9) Eosinophils (%) (Auto) 1 % (0-3) Basophils (%) (Auto) 0 % (0-3) Neutrophils # (Auto) 11.6 x10^3uL (1.8-7.7) Lymphocytes # (Auto) 0.7 x10^3/uL (1.0-4.8) Monocytes # (Auto) 0.7 x10^3/uL (0.0-1.1) Eosinophils # (Auto) 0.1 x10^3/uL (0.0-0.7) Basophils # (Auto) 0.0 x10^3/uL (0.0-0.2) Sodium Level 145 mmol/L (136-145) Potassium Level 4.5 mmol/L (3.5-5.1) Chloride Level 108 mmol/L (98-107) Carbon Dioxide Level 26 mmol/L (21-32) Anion Gap 11 (6-14) Blood Urea Nitrogen 30 mg/dL (7-20) Creatinine 1.4 mg/dL (0.6-1.0) Estimated GFR (Cockcroft-Gault) 35.8 Glucose Level 104 mg/dL (70-99) Calcium Level 8.2 mg/dL (8.5-10.1) Assessment and Plan Assessmemt and Plan Problems Medical Problems: (1) Cellulitis of lower extremity Status: Acute Problems: Comment Review of Relevant I have reviewed the following items javan (where applicable) has been applied. Labs Laboratory Tests Test 10/12/16 19:17 10/12/16 19:55 10/13/16 04:00 10/13/16 07:03 White Blood Count 16.2 x10^3/uL (4.0-11.0) 19.5 x10^3/uL (4.0-11.0) Red Blood Count 4.39 x10^6/uL (3.50-5.40) 3.96 x10^6/uL (3.50-5.40) Hemoglobin 13.3 g/dL (12.0-15.5) 11.9 g/dL (12.0-15.5) Hematocrit 40.0 % (36.0-47.0) 36.9 % (36.0-47.0) Mean Corpuscular Volume 91 fL (79-100) 93 fL (79-100) Mean Corpuscular Hemoglobin 30 pg (25-35) 30 pg (25-35) Mean Corpuscular Hemoglobin Concent 33 g/dL (31-37) 32 g/dL (31-37) Red Cell Distribution Width 15.0 % (11.5-14.5) 14.9 % (11.5-14.5) Platelet Count 227 x10^3/uL (140-400) 201 x10^3/uL (140-400) Neutrophils (%) (Auto) 91 % (31-73) 93 % (31-73) Lymphocytes (%) (Auto) 5 % (24-48) 4 % (24-48) Monocytes (%) (Auto) 3 % (0-9) 3 % (0-9) Eosinophils (%) (Auto) 0 % (0-3) 0 % (0-3) Basophils (%) (Auto) 0 % (0-3) 0 % (0-3) Neutrophils # (Auto) 14.7 x10^3uL (1.8-7.7) 18.2 x10^3uL (1.8-7.7) Lymphocytes # (Auto) 0.8 x10^3/uL (1.0-4.8) 0.7 x10^3/uL (1.0-4.8) Monocytes # (Auto) 0.5 x10^3/uL (0.0-1.1) 0.5 x10^3/uL (0.0-1.1) Eosinophils # (Auto) 0.0 x10^3/uL (0.0-0.7) 0.0 x10^3/uL (0.0-0.7) Basophils # (Auto) 0.1 x10^3/uL (0.0-0.2) 0.0 x10^3/uL (0.0-0.2) Segmented Neutrophils % 71 % (35-66) Band Neutrophils % 16 % (0-9) Lymphocytes % 9 % (24-48) Monocytes % 4 % (0-10) Toxic Granulation Slight Toxic Vacuolation Slight Platelet Estimate Adequate (ADEQUATE) Sodium Level 142 mmol/L (136-145) 144 mmol/L (136-145) Potassium Level 4.3 mmol/L (3.5-5.1) 4.2 mmol/L (3.5-5.1) Chloride Level 104 mmol/L (98-107) 106 mmol/L (98-107) Carbon Dioxide Level 27 mmol/L (21-32) 25 mmol/L (21-32) Anion Gap 11 (6-14) 13 (6-14) Blood Urea Nitrogen 31 mg/dL (7-20) 32 mg/dL (7-20) Creatinine 1.3 mg/dL (0.6-1.0) 1.3 mg/dL (0.6-1.0) Estimated GFR (Cockcroft-Gault) 39.0 39.0 BUN/Creatinine Ratio 24 (6-20) Glucose Level 123 mg/dL (70-99) 126 mg/dL (70-99) Lactic Acid Level 2.0 mmol/L (0.4-2.0) Calcium Level 9.3 mg/dL (8.5-10.1) 8.2 mg/dL (8.5-10.1) Total Bilirubin 0.4 mg/dL (0.2-1.0) Aspartate Amino Transf (AST/SGOT) 20 U/L (15-37) Alanine Aminotransferase (ALT/SGPT) 15 U/L (14-59) Alkaline Phosphatase 83 U/L (46-116) Total Protein 7.3 g/dL (6.4-8.2) Albumin 3.9 g/dL (3.4-5.0) Albumin/Globulin Ratio 1.1 (1.0-1.7) Urine Collection Type U cath Urine Color Yellow Urine Clarity Clear Urine pH 6.0 Urine Specific Plato <=1.005 Urine Protein Negative mg/dL (NEG-TRACE) Urine Glucose (UA) Negative mg/dL (NEG) Urine Ketones (Stick) Negative mg/dL (NEG) Urine Blood Large (NEG) Urine Nitrite Negative (NEG) Urine Bilirubin Negative (NEG) Urine Urobilinogen Dipstick 0.2 mg/dL (0.2 mg/dL) Urine Leukocyte Esterase Small (NEG) Urine RBC >40 /HPF (0-2) Urine WBC 1-4 /HPF (0-4) Urine Squamous Epithelial Cells Few /LPF Urine Bacteria Many /HPF (0-FEW) Urine Hyaline Casts Occasional /HPF Urine Mucus Slight /LPF Glucose (Fingerstick) 131 mg/dL (70-99) Test 10/14/16 04:55 White Blood Count 13.2 x10^3/uL (4.0-11.0) Red Blood Count 3.66 x10^6/uL (3.50-5.40) Hemoglobin 11.2 g/dL (12.0-15.5) Hematocrit 33.7 % (36.0-47.0) Mean Corpuscular Volume 92 fL (79-100) Mean Corpuscular Hemoglobin 31 pg (25-35) Mean Corpuscular Hemoglobin Concent 33 g/dL (31-37) Red Cell Distribution Width 15.3 % (11.5-14.5) Platelet Count 174 x10^3/uL (140-400) Neutrophils (%) (Auto) 88 % (31-73) Lymphocytes (%) (Auto) 6 % (24-48) Monocytes (%) (Auto) 6 % (0-9) Eosinophils (%) (Auto) 1 % (0-3) Basophils (%) (Auto) 0 % (0-3) Neutrophils # (Auto) 11.6 x10^3uL (1.8-7.7) Lymphocytes # (Auto) 0.7 x10^3/uL (1.0-4.8) Monocytes # (Auto) 0.7 x10^3/uL (0.0-1.1) Eosinophils # (Auto) 0.1 x10^3/uL (0.0-0.7) Basophils # (Auto) 0.0 x10^3/uL (0.0-0.2) Sodium Level 145 mmol/L (136-145) Potassium Level 4.5 mmol/L (3.5-5.1) Chloride Level 108 mmol/L (98-107) Carbon Dioxide Level 26 mmol/L (21-32) Anion Gap 11 (6-14) Blood Urea Nitrogen 30 mg/dL (7-20) Creatinine 1.4 mg/dL (0.6-1.0) Estimated GFR (Cockcroft-Gault) 35.8 Glucose Level 104 mg/dL (70-99) Calcium Level 8.2 mg/dL (8.5-10.1) Laboratory Tests Test 10/14/16 04:55 White Blood Count 13.2 x10^3/uL (4.0-11.0) Red Blood Count 3.66 x10^6/uL (3.50-5.40) Hemoglobin 11.2 g/dL (12.0-15.5) Hematocrit 33.7 % (36.0-47.0) Mean Corpuscular Volume 92 fL (79-100) Mean Corpuscular Hemoglobin 31 pg (25-35) Mean Corpuscular Hemoglobin Concent 33 g/dL (31-37) Red Cell Distribution Width 15.3 % (11.5-14.5) Platelet Count 174 x10^3/uL (140-400) Neutrophils (%) (Auto) 88 % (31-73) Lymphocytes (%) (Auto) 6 % (24-48) Monocytes (%) (Auto) 6 % (0-9) Eosinophils (%) (Auto) 1 % (0-3) Basophils (%) (Auto) 0 % (0-3) Neutrophils # (Auto) 11.6 x10^3uL (1.8-7.7) Lymphocytes # (Auto) 0.7 x10^3/uL (1.0-4.8) Monocytes # (Auto) 0.7 x10^3/uL (0.0-1.1) Eosinophils # (Auto) 0.1 x10^3/uL (0.0-0.7) Basophils # (Auto) 0.0 x10^3/uL (0.0-0.2) Sodium Level 145 mmol/L (136-145) Potassium Level 4.5 mmol/L (3.5-5.1) Chloride Level 108 mmol/L (98-107) Carbon Dioxide Level 26 mmol/L (21-32) Anion Gap 11 (6-14) Blood Urea Nitrogen 30 mg/dL (7-20) Creatinine 1.4 mg/dL (0.6-1.0) Estimated GFR (Cockcroft-Gault) 35.8 Glucose Level 104 mg/dL (70-99) Calcium Level 8.2 mg/dL (8.5-10.1) Microbiology 10/12/16 Blood Culture - Preliminary, Resulted NO GROWTH AFTER 1 DAY Medications Current Medications Fentanyl Citrate (Fentanyl 2ml Vial) 25 mcg PRN Q15MIN PRN IV PAIN GREATER THAN 3/10 Last administered on 10/13/16 03:52; Start 10/12/16 at 20:45; Stop at 07:55; Status DC Ondansetron HCl (Zofran) 4 mg 1X ONCE IV Last administered on 10/12/16 21:07 ; Start 10/12/16 at 21:00; Stop 10/12/16 at 21:01; Status DC Acetaminophen (Tylenol) 1,000 mg 1X ONCE PO Last administered on 10/12/16 21: 03; Start 10/12/16 at 21:00; Stop 10/12/16 at 21:01; Status DC Sodium Chloride 1,000 ml @ 1,000 mls/hr 1X ONCE IV Last administered on 21:01; Start 10/12/16 at 21:00; Stop 10/12/16 at 21:59; Status DC Cefepime HCl 2 gm/ Sodium Chloride 100 ml @ 200 mls/hr BID IV Last administered on 10/13/16 10:00; Start 10/12/16 at 21:00; Stop 10/13/16 at 14:54 ; Status DC Vancomycin HCl (Vanco Per Pharmacy) 1 each PRN DAILY PRN MC SEE COMMENTS Last administered on 10/13/16 13:45; Start 10/12/16 at 20:45 Vancomycin HCl 2 gm/Sodium Chloride 500 ml @ 250 mls/hr 1X ONCE IV Last administered on 10/12/16 21:43; Start 10/12/16 at 21:00; Stop 10/12/16 at 22:59 ; Status DC Ondansetron HCl (Zofran) 4 mg PRN Q8HRS PRN IV NAUSEA/VOMITING Last administered on 10/13/16 17:57; Start 10/12/16 at 22:00; Stop 10/13/16 at 21:59 ; Status DC Sodium Chloride 1,000 ml @ 125 mls/hr Q8H IV Last administered on 10/13/16 07 :56; Start 10/12/16 at 22:30; Stop 10/13/16 at 22:29; Status DC Acetaminophen (Tylenol) 650 mg PRN Q4HRS PRN PO FEVER Last administered on 10/13 07:55; Start 10/12/16 at 22:00; Stop 10/13/16 at 11:21; Status DC Insulin Aspart (NovoLOG) 0-5 UNITS TIDWMEALS SQ ; Start 10/13/16 at 08:00; Stop 10/13/16 at 10:55; Status DC Dextrose (Dextrose 50%-Water Syringe) 12.5 gm PRN Q15MIN PRN IV SEE COMMENTS; Start 10/12/16 at 22:00 Vancomycin HCl 1.25 gm/Sodium Chloride 250 ml @ 167 mls/hr Q24H IV Last administered on 10/13/16 22:06; Start 10/13/16 at 22:00 Vancomycin HCl 1 each 1X ONCE MC ; Start 10/14/16 at 21:30; Stop 10/14/16 at 21 :31 Acetaminophen (Tylenol) 650 mg PRN Q6HRS PRN PO FEVER; Start 10/13/16 at 10:15 Ondansetron HCl (Zofran) 4 mg PRN Q6HRS PRN IV NAUSEA/VOMITING; Start 10/13/16 at 10:15 Morphine Sulfate 2 mg PRN Q2HR PRN IV PAIN Last administered on 10/13/16 16:48 ; Start 10/13/16 at 10:15 Tramadol HCl (Ultram) 50 mg PRN Q6HRS PRN PO PAIN Last administered on 06:17; Start 10/13/16 at 10:15 Hydralazine HCl (Apresoline) 10 mg PRN Q4HRS PRN IVP ELEVATED BP, SEE COMMENTS ; Start 10/13/16 at 10:15 Docusate Sodium (Colace) 100 mg PRN DAILY PRN PO CONSTIPATION; Start 10/13/16 at 10:15 Allopurinol (Zyloprim) 100 mg DAILY PO Last administered on 10/14/16 09:02; Start 10/13/16 at 12:00 Aspirin (Ecotrin) 81 mg DAILY PO Last administered on 10/14/16 09:02; Start at 12:00 Citalopram Hydrobromide (CeleXA) 10 mg DAILY PO Last administered on 10/14/16 09:03; Start 10/13/16 at 12:00 Furosemide (Lasix) 40 mg DAILY PO Last administered on 10/14/16 09:02; Start 10/13/16 at 12:00 Levothyroxine Sodium (Synthroid) 75 mcg DAILY07 PO Last administered on 06:17; Start 10/13/16 at 15:30 Pantoprazole Sodium (Protonix) 40 mg DAILYAC PO Last administered on 10/14/16 09:02; Start 10/13/16 at 11:30 Simvastatin (Zocor) 80 mg QHS PO Last administered on 10/13/16 20:51; Start at 21:00 Enoxaparin Sodium (Lovenox 40mg Syringe) 40 mg Q24H SQ ; Start 10/13/16 at 13:15 ; Stop 10/13/16 at 13:15; Status DC Enoxaparin Sodium (Lovenox 30mg Syringe) 30 mg Q24H SQ Last administered on 14:08; Start 10/13/16 at 14:00 Meropenem 500 mg/ Sodium Chloride 50 ml @ 100 mls/hr Q6HRS IV Last administered on 10/14/16 12:40; Start 10/13/16 at 16:00 Acetaminophen/ Hydrocodone Bitart (Lortab 5/325) 1 tab PRN Q4HRS PRN PO MODERATE TO SEVERE PAIN; Start 10/14/16 at 10:45 Active Scripts Active Reported Celexa (Citalopram Hydrobromide) 10 Mg Tablet 10 Mg PO DAILY Allopurinol 100 Mg Tablet 100 Mg PO DAILY Pantoprazole Sodium 40 Mg Tablet.dr 40 Mg PO DAILY Aspir-Low (Aspirin) 81 Mg Tablet.dr 1 Tab PO DAILY Levothyroxine Sodium 75 Mcg Tablet 1 Tab PO DAILY Simvastatin 80 Mg Tablet 1 Tab PO QHS Furosemide 40 Mg Tablet 1 Tab PO DAILY Vitals/I & O Vital Sign - Last 24 Hours 10/13/16 10/13/16 10/13/16 10/13/16 14:49 15:00 19:00 20:00 Temp 98.0 98.9 98.0 98.9 Pulse 72 78 Resp 20 22 18 B/P (MAP) 120/72 (88) 104/56 (72) Pulse Ox 97 94 O2 Delivery Room Air Room Air 10/13/16 10/14/16 10/14/16 10/14/16 23:00 03:00 06:17 07:00 Temp 97.7 97.9 97.0 97.7 97.9 97.0 Pulse 74 74 64 Resp 16 18 17 22 B/P (MAP) 117/65 (82) 102/55 (71) 122/60 (80) Pulse Ox 92 90 90 98 O2 Delivery Room Air Room Air 10/14/16 11:00 Temp 97.4 97.4 Pulse 88 Resp 24 B/P (MAP) 129/66 (87) Pulse Ox 96 O2 Delivery Room Air Intake and Output 10/13/16 10/13/16 10/14/16 15:00 23:00 07:00 Intake Total 720 ml 600 ml 120 ml Output Total 600 ml 450 ml Balance 720 ml 0 ml -330 ml ISAURA ABBOTT MD October 14, 2016 12:59
[2016-10-14] MEDS: ONDANSETRON PF 4 MG/2 ML VIAL. IV PRN ×2 (13:39→21:08)
[2016-10-14 15:00] VITALS: BP 130/74
--- NOTE | 2016-10-14 15:28 | RAD ---
EXAM: Cervical spine MRI without contrast. HISTORY: Pain. TECHNIQUE: Multiplanar, multisequence magnetic resonance imaging of the cervical was performed without contrast. COMPARISON: CT dated 10/13/2016. FINDINGS: There is mild anterolisthesis of C3 on C4 and C4 on C5 and C5 on C6 and C7 on T1, T2 2 on C3 and T3 on T4. 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 There is no suspicious osseous lesion or acute or subacute fracture. There is degenerative endplate remodeling with anterior predominant spurring at the majority of the cervical vertebral levels. No spinal cord lesion is seen. There is deformation of the spinal cord at multiple levels due to central canal stenosis, described in detail below. There is moderate to severe left maxillary sinus mucosal thickening. 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 At C2-C3, there is mild bilateral facet arthropathy. There is no stenosis. At C3-C4, there is moderate to severe bilateral facet arthropathy. There is mild right foraminal stenosis. There is mild central canal stenosis measuring 9.0 mm in anterior posterior dimension. At C4-C5, there is a posterior central disc protrusion with minimal superior extrusion superimposed on a disc bulge and endplate remodeling. There is moderate facet arthropathy. There is uncovertebral arthropathy. There is severe bilateral foraminal stenosis. There is buckling of the ligament of flavum. There is mild to moderate central canal stenosis measuring 8.2 mm in anterior posterior dimension. At C5-C6, there is a disc bulge and endplate remodeling. There is mild facet arthropathy. There is uncovertebral arthropathy. There is moderate bilateral foraminal stenosis. There is mild central canal stenosis measuring 9 point to MNA to posterior dimension. At C6-C7, there is a disc bulge and endplate remodeling. There is uncovertebral arthropathy. There is moderate to severe right and mild left foraminal stenosis. There is mild central canal stenosis measuring 8.9 mm in anterior posterior dimension. At C7-T1, there is a disc bulge and endplate remodeling. There is uncovertebral arthropathy. There is mild to moderate right and moderate left foraminal stenosis. At T1-T2, there is partial congenital fusion. There is no stenosis. At T2-T3, there is a posterior central disc protrusion. There is mild right foraminal stenosis. IMPRESSION: 1. Multilevel degenerative change throughout the cervical spine, resulting in stenosis as described above. 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 No spinal cord lesion is seen. 2. Multilevel cervical and upper thoracic listhesis, degenerative in etiology. .
[2016-10-14] MEDS ORDERED: methylPREDNISolone ACETATE 40 MG/ML VIAL. IM ONE (15:45)
[2016-10-14] MEDS ORDERED: BUPIVACAINE MPF 0.25% 10 ML VIAL. IJ ONE (15:45)
[2016-10-14] MEDS: ENOXAPARIN 30 MG/0.3 ML SYRINGE. SQ SCH (16:04)
[2016-10-14] MEDS: HYDROcodone/APAP 5/325MG 1 TAB TABLET PO PRN ×2 (16:13→22:26)
[2016-10-14 19:00] VITALS: BP 129/84
[2016-10-14] MEDS: DICLOFENAC SODIUM 1% TOPICAL GEL 100GM TUBE. TP SCH (21:10)
[2016-10-14] MEDS: SIMVASTATIN 40 MG TABLET. PO SCH (21:11)
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
[2016-10-14 22:56] VITALS: BP 118/78
[2016-10-15] MEDS: MEROPENEM 500 MG in IV NORMAL SALINE 50ML 50 ML IV SCH ×5 (00:12→23:07)
[2016-10-15] MEDS: BUTALB/APAP/CAFEIN 50/325/40MG TABLET. PO PRN ×2 (00:21→06:51)
[2016-10-15 05:15] LABS: BASO % 0 % (0-3); EOS % 0 % (0-3); LYMPH # 0.2 x10^3/uL (1.0-4.8); LYMPH % 2 % (24-48); MEAN CORPUSCULAR HEMOGLOBIN 31 pg (25-35); MEAN CORPUSCULAR HGB CONC 34 g/dL (31-37); MEAN CORPUSCULAR VOLUME 91 fL (79-100); MONO % 3 % (0-9); NEUT % 96 % (31-73); PLATELET COUNT 176 x10^3/uL (140-400); RED BLOOD COUNT 3.62 x10^6/uL (3.50-5.40); RED CELL DISTRIBUTION WIDTH 15.1 % (11.5-14.5); WHITE BLOOD COUNT 12.3 x10^3/uL (4.0-11.0)
[2016-10-15 05:48] LABS: CALCIUM 8.8 mg/dL (8.5-10.1); CREATININE 1.4 mg/dL (0.6-1.0); GFR 35.8
[2016-10-15] MEDS: LEVOTHYROXINE 75 MCG TABLET PO SCH (06:09)
[2016-10-15 07:00] VITALS: BP 132/78
--- NOTE | 2016-10-15 08:00 | PDOC ---
Infectious Disease Note Subjective Subjective Some better. Received a shot of steroids Less PANG and joint ache Still some nause ROS ROS GEN: Denies fevers, chills, sweats HEENT: Denies blurred vision, sore throat CV: Denies chest pain RESP: Denies shortness of air, cough GI: Denies d NEURO: Denies confusion, dizziness MSK: Denies weakness Vital Sign Vital Signs Vital Signs Date Time Temp Pulse Resp B/P (MAP) Pulse Ox O2 Delivery O2 Flow Rate FiO2 10/15/16 07:00 97.8 81 20 132/78 (96) 90 Room Air 97.8 Physical Exam PHYSICAL EXAM GENERAL: NAD, coop - looks better NECK: Limited active range of motion. No adenopathy. PEERL/ OC/Op - clear LUNGS: Clear to auscultation. HEART: Normal S1 and S2. ABDOMEN: Obese, bowel sounds are present, soft, nontender. EXTREMITIES: Bilateral lower extremity lymphedema with multiple large cutaneous nodules, greater on the right. No redness. No cyanosis. SKIN: Without rash. Warm to touch. NEUROLOGIC: Alert and oriented x 3. Moves all extremities. Labs Lab Laboratory Tests Test 10/15/16 03:33 White Blood Count 12.3 x10^3/uL (4.0-11.0) Red Blood Count 3.62 x10^6/uL (3.50-5.40) Hemoglobin 11.0 g/dL (12.0-15.5) Hematocrit 33.0 % (36.0-47.0) Mean Corpuscular Volume 91 fL (79-100) Mean Corpuscular Hemoglobin 31 pg (25-35) Mean Corpuscular Hemoglobin Concent 34 g/dL (31-37) Red Cell Distribution Width 15.1 % (11.5-14.5) Platelet Count 176 x10^3/uL (140-400) Neutrophils (%) (Auto) 96 % (31-73) Lymphocytes (%) (Auto) 2 % (24-48) Monocytes (%) (Auto) 3 % (0-9) Eosinophils (%) (Auto) 0 % (0-3) Basophils (%) (Auto) 0 % (0-3) Neutrophils # (Auto) 11.8 x10^3uL (1.8-7.7) Lymphocytes # (Auto) 0.2 x10^3/uL (1.0-4.8) Monocytes # (Auto) 0.3 x10^3/uL (0.0-1.1) Eosinophils # (Auto) 0.0 x10^3/uL (0.0-0.7) Basophils # (Auto) 0.0 x10^3/uL (0.0-0.2) Sodium Level 141 mmol/L (136-145) Potassium Level 4.0 mmol/L (3.5-5.1) Chloride Level 106 mmol/L (98-107) Carbon Dioxide Level 25 mmol/L (21-32) Anion Gap 10 (6-14) Blood Urea Nitrogen 30 mg/dL (7-20) Creatinine 1.4 mg/dL (0.6-1.0) Estimated GFR (Cockcroft-Gault) 35.8 Glucose Level 103 mg/dL (70-99) Calcium Level 8.8 mg/dL (8.5-10.1) Objective Assessment Fever - better Leukocytosis - better Chronic sinusitis on CT Chronic lymphedema lower extremities Neck pain h/o fall. 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 h/o right nephrectomy h/o Enterobacter (Sen aminoglycosides, carbapenems & quinolones). Plan Plan of Care Cont meropenem for now but to po soon Monitor WBC but may rise with solumedrol, Cr and temp BC NGTD PANG per OCTAVIANO Sutherland MD October 15, 2016 08:00
[2016-10-15] MEDS: CITALOPRAM 10 MG TABLET. PO SCH (08:04)
[2016-10-15] MEDS: ALLOPURINOL 100 MG TABLET. PO SCH (08:04)
[2016-10-15] MEDS: ASPIRIN ENTERIC COATED 81 MG TABLET.DR. PO SCH (08:04)
[2016-10-15] MEDS: PANTOPRAZOLE 40 MG TABLET.DR. PO SCH (08:04)
[2016-10-15] MEDS: FUROSEMIDE 40 MG TABLET. PO SCH (08:04)
[2016-10-15] MEDS: DICLOFENAC SODIUM 1% TOPICAL GEL 100GM TUBE. TP SCH ×2 (08:07→20:07)
[2016-10-15] MEDS ORDERED: ALBUTEROL SULFATE 2.5 MG/3 ML NEBU. NEB PRN (08:45)
--- NOTE | 2016-10-15 10:20 | PDOC ---
PROGRESS NOTES Subjective Subjective She admits continued headache and neck pain,although some help from injection.Knee pain is less with diclofenac gel.Headache and neck pain is less when she applies pressure with her hand to right side of her head. Objective Objective Vital Signs Date Time Temp Pulse Resp B/P (MAP) Pulse Ox O2 Delivery O2 Flow Rate FiO2 10/15/16 08:17 Room Air 10/15/16 07:00 97.8 81 20 132/78 (96) 90 97.8 Intake and Output 10/15/16 06:59 Intake Total 3060 ml Output Total 1500 ml Balance 1560 ml Intake Oral 2660 ml IV Total 400 ml Output Urine Total 1500 ml # Voids 3 Physical Exam Physical Exam She continues with stiffness on her neck,mainly lateral flexion bilaterally and tenderness to palpation over right cervical paraspinal muscles. She got up and walked at bedside with roller walker under supervision and minimal help with transfers. Assessment Assessment Problems Medical Problems: (1) Cellulitis of lower extremity Status: Acute Plan Plan of Care To try her with soft cervical collar and to ask physical therapy to try physical modalities and to SNF or home with home health or out patient follow up when medically stable. Comment Review of Relevant I have reviewed the following items javan (where applicable) has been applied. Labs Laboratory Tests Test 10/14/16 04:55 10/15/16 03:33 White Blood Count 13.2 x10^3/uL (4.0-11.0) 12.3 x10^3/uL (4.0-11.0) Red Blood Count 3.66 x10^6/uL (3.50-5.40) 3.62 x10^6/uL (3.50-5.40) Hemoglobin 11.2 g/dL (12.0-15.5) 11.0 g/dL (12.0-15.5) Hematocrit 33.7 % (36.0-47.0) 33.0 % (36.0-47.0) Mean Corpuscular Volume 92 fL (79-100) 91 fL (79-100) Mean Corpuscular Hemoglobin 31 pg (25-35) 31 pg (25-35) Mean Corpuscular Hemoglobin Concent 33 g/dL (31-37) 34 g/dL (31-37) Red Cell Distribution Width 15.3 % (11.5-14.5) 15.1 % (11.5-14.5) Platelet Count 174 x10^3/uL (140-400) 176 x10^3/uL (140-400) Neutrophils (%) (Auto) 88 % (31-73) 96 % (31-73) Lymphocytes (%) (Auto) 6 % (24-48) 2 % (24-48) Monocytes (%) (Auto) 6 % (0-9) 3 % (0-9) Eosinophils (%) (Auto) 1 % (0-3) 0 % (0-3) Basophils (%) (Auto) 0 % (0-3) 0 % (0-3) Neutrophils # (Auto) 11.6 x10^3uL (1.8-7.7) 11.8 x10^3uL (1.8-7.7) Lymphocytes # (Auto) 0.7 x10^3/uL (1.0-4.8) 0.2 x10^3/uL (1.0-4.8) Monocytes # (Auto) 0.7 x10^3/uL (0.0-1.1) 0.3 x10^3/uL (0.0-1.1) Eosinophils # (Auto) 0.1 x10^3/uL (0.0-0.7) 0.0 x10^3/uL (0.0-0.7) Basophils # (Auto) 0.0 x10^3/uL (0.0-0.2) 0.0 x10^3/uL (0.0-0.2) Sodium Level 145 mmol/L (136-145) 141 mmol/L (136-145) Potassium Level 4.5 mmol/L (3.5-5.1) 4.0 mmol/L (3.5-5.1) Chloride Level 108 mmol/L (98-107) 106 mmol/L (98-107) Carbon Dioxide Level 26 mmol/L (21-32) 25 mmol/L (21-32) Anion Gap 11 (6-14) 10 (6-14) Blood Urea Nitrogen 30 mg/dL (7-20) 30 mg/dL (7-20) Creatinine 1.4 mg/dL (0.6-1.0) 1.4 mg/dL (0.6-1.0) Estimated GFR (Cockcroft-Gault) 35.8 35.8 Glucose Level 104 mg/dL (70-99) 103 mg/dL (70-99) Calcium Level 8.2 mg/dL (8.5-10.1) 8.8 mg/dL (8.5-10.1) Laboratory Tests Test 10/15/16 03:33 White Blood Count 12.3 x10^3/uL (4.0-11.0) Red Blood Count 3.62 x10^6/uL (3.50-5.40) Hemoglobin 11.0 g/dL (12.0-15.5) Hematocrit 33.0 % (36.0-47.0) Mean Corpuscular Volume 91 fL (79-100) Mean Corpuscular Hemoglobin 31 pg (25-35) Mean Corpuscular Hemoglobin Concent 34 g/dL (31-37) Red Cell Distribution Width 15.1 % (11.5-14.5) Platelet Count 176 x10^3/uL (140-400) Neutrophils (%) (Auto) 96 % (31-73) Lymphocytes (%) (Auto) 2 % (24-48) Monocytes (%) (Auto) 3 % (0-9) Eosinophils (%) (Auto) 0 % (0-3) Basophils (%) (Auto) 0 % (0-3) Neutrophils # (Auto) 11.8 x10^3uL (1.8-7.7) Lymphocytes # (Auto) 0.2 x10^3/uL (1.0-4.8) Monocytes # (Auto) 0.3 x10^3/uL (0.0-1.1) Eosinophils # (Auto) 0.0 x10^3/uL (0.0-0.7) Basophils # (Auto) 0.0 x10^3/uL (0.0-0.2) Sodium Level 141 mmol/L (136-145) Potassium Level 4.0 mmol/L (3.5-5.1) Chloride Level 106 mmol/L (98-107) Carbon Dioxide Level 25 mmol/L (21-32) Anion Gap 10 (6-14) Blood Urea Nitrogen 30 mg/dL (7-20) Creatinine 1.4 mg/dL (0.6-1.0) Estimated GFR (Cockcroft-Gault) 35.8 Glucose Level 103 mg/dL (70-99) Calcium Level 8.8 mg/dL (8.5-10.1) Microbiology 10/12/16 Blood Culture - Preliminary, Resulted NO GROWTH AFTER 2 DAYS Medications Current Medications Fentanyl Citrate (Fentanyl 2ml Vial) 25 mcg PRN Q15MIN PRN IV PAIN GREATER THAN 3/10 Last administered on 10/13/16 03:52; Start 10/12/16 at 20:45; Stop at 07:55; Status DC Ondansetron HCl (Zofran) 4 mg 1X ONCE IV Last administered on 10/12/16 21:07 ; Start 10/12/16 at 21:00; Stop 10/12/16 at 21:01; Status DC Acetaminophen (Tylenol) 1,000 mg 1X ONCE PO Last administered on 10/12/16 21: 03; Start 10/12/16 at 21:00; Stop 10/12/16 at 21:01; Status DC Sodium Chloride 1,000 ml @ 1,000 mls/hr 1X ONCE IV Last administered on 21:01; Start 10/12/16 at 21:00; Stop 10/12/16 at 21:59; Status DC Cefepime HCl 2 gm/ Sodium Chloride 100 ml @ 200 mls/hr BID IV Last administered on 10/13/16 10:00; Start 10/12/16 at 21:00; Stop 10/13/16 at 14:54 ; Status DC Vancomycin HCl (Vanco Per Pharmacy) 1 each PRN DAILY PRN MC SEE COMMENTS Last administered on 10/13/16 13:45; Start 10/12/16 at 20:45; Stop 10/14/16 at 13:49 ; Status DC Vancomycin HCl 2 gm/Sodium Chloride 500 ml @ 250 mls/hr 1X ONCE IV Last administered on 10/12/16 21:43; Start 10/12/16 at 21:00; Stop 10/12/16 at 22:59 ; Status DC Ondansetron HCl (Zofran) 4 mg PRN Q8HRS PRN IV NAUSEA/VOMITING Last administered on 10/13/16 17:57; Start 10/12/16 at 22:00; Stop 10/13/16 at 21:59 ; Status DC Sodium Chloride 1,000 ml @ 125 mls/hr Q8H IV Last administered on 10/13/16 07 :56; Start 10/12/16 at 22:30; Stop 10/13/16 at 22:29; Status DC Acetaminophen (Tylenol) 650 mg PRN Q4HRS PRN PO FEVER Last administered on 10/13 07:55; Start 10/12/16 at 22:00; Stop 10/13/16 at 11:21; Status DC Insulin Aspart (NovoLOG) 0-5 UNITS TIDWMEALS SQ ; Start 10/13/16 at 08:00; Stop 10/13/16 at 10:55; Status DC Dextrose (Dextrose 50%-Water Syringe) 12.5 gm PRN Q15MIN PRN IV SEE COMMENTS; Start 10/12/16 at 22:00 Vancomycin HCl 1.25 gm/Sodium Chloride 250 ml @ 167 mls/hr Q24H IV Last administered on 10/13/16 22:06; Start 10/13/16 at 22:00; Stop 10/14/16 at 13:49 ; Status DC Vancomycin HCl 1 each 1X ONCE MC ; Start 10/14/16 at 21:30; Stop 10/14/16 at 21 :31; Status Cancel Acetaminophen (Tylenol) 650 mg PRN Q6HRS PRN PO FEVER; Start 10/13/16 at 10:15 Ondansetron HCl (Zofran) 4 mg PRN Q6HRS PRN IV NAUSEA/VOMITING Last administered on 10/14/16 21:08; Start 10/13/16 at 10:15 Morphine Sulfate 2 mg PRN Q2HR PRN IV PAIN Last administered on 10/13/16 16:48 ; Start 10/13/16 at 10:15 Tramadol HCl (Ultram) 50 mg PRN Q6HRS PRN PO PAIN Last administered on 06:17; Start 10/13/16 at 10:15 Hydralazine HCl (Apresoline) 10 mg PRN Q4HRS PRN IVP ELEVATED BP, SEE COMMENTS ; Start 10/13/16 at 10:15 Docusate Sodium (Colace) 100 mg PRN DAILY PRN PO CONSTIPATION; Start 10/13/16 at 10:15 Allopurinol (Zyloprim) 100 mg DAILY PO Last administered on 10/15/16 08:04; Start 10/13/16 at 12:00 Aspirin (Ecotrin) 81 mg DAILY PO Last administered on 10/15/16 08:04; Start at 12:00 Citalopram Hydrobromide (CeleXA) 10 mg DAILY PO Last administered on 10/15/16 08:04; Start 10/13/16 at 12:00 Furosemide (Lasix) 40 mg DAILY PO Last administered on 10/15/16 08:04; Start 10/13/16 at 12:00 Levothyroxine Sodium (Synthroid) 75 mcg DAILY07 PO Last administered on 06:09; Start 10/13/16 at 15:30 Pantoprazole Sodium (Protonix) 40 mg DAILYAC PO Last administered on 10/15/16 08:04; Start 10/13/16 at 11:30 Simvastatin (Zocor) 80 mg QHS PO Last administered on 10/14/16 21:11; Start at 21:00 Enoxaparin Sodium (Lovenox 40mg Syringe) 40 mg Q24H SQ ; Start 10/13/16 at 13:15 ; Stop 10/13/16 at 13:15; Status DC Enoxaparin Sodium (Lovenox 30mg Syringe) 30 mg Q24H SQ Last administered on 16:04; Start 10/13/16 at 14:00 Meropenem 500 mg/ Sodium Chloride 50 ml @ 100 mls/hr Q6HRS IV Last administered on 10/15/16 06:03; Start 10/13/16 at 16:00 Acetaminophen/ Hydrocodone Bitart (Lortab 5/325) 1 tab PRN Q4HRS PRN PO MODERATE TO SEVERE PAIN Last administered on 10/14/16 22:26; Start 10/14/16 at 10:45 Methylprednisolone Acetate (DEPO-Medrol 40MG VIAL) 40 mg 1X ONCE IM ; Start at 15:45; Stop 10/14/16 at 15:49; Status DC Bupivacaine HCl (Sensorcaine-Mpf 0.25%) 10 ml 1X ONCE IJ ; Start 10/14/16 at 15 :45; Stop 10/14/16 at 15:50; Status DC Diclofenac Sodium (Voltaren) 1 janet BID TP Last administered on 10/15/16 08:07 ; Start 10/14/16 at 21:00 Acetaminophen/ Butalbital/ Caffeine (Fioricet) 2 tab PRN Q6HRS PRN PO MIGRAINE HEADACHE Last administered on 10/15/16 06:51; Start 10/14/16 at 16:30 Albuterol Sulfate (Ventolin Neb Soln) 2.5 mg PRN Q4HRS PRN NEB SHORTNESS OF BREATH; Start 10/15/16 at 08:45 Active Scripts Active Reported Celexa (Citalopram Hydrobromide) 10 Mg Tablet 10 Mg PO DAILY Allopurinol 100 Mg Tablet 100 Mg PO DAILY Pantoprazole Sodium 40 Mg Tablet. 40 Mg PO DAILY Aspir-Low (Aspirin) 81 Mg Tablet.dr 1 Tab PO DAILY Levothyroxine Sodium 75 Mcg Tablet 1 Tab PO DAILY Simvastatin 80 Mg Tablet 1 Tab PO QHS Furosemide 40 Mg Tablet 1 Tab PO DAILY Vitals/I & O Vital Sign - Last 24 Hours 10/14/16 10/14/16 10/14/16 10/14/16 11:00 15:00 19:00 20:30 Temp 97.4 98.2 97.9 97.4 98.2 97.9 Pulse 88 76 77 Resp 24 24 18 B/P (MAP) 129/66 (87) 130/74 (92) 129/84 (99) Pulse Ox 96 97 93 O2 Delivery Room Air Room Air Room Air Room Air 10/14/16 10/14/16 10/14/16 10/15/16 22:26 22:56 23:26 07:00 Temp 98.6 97.8 98.6 97.8 Pulse 88 81 Resp 20 18 18 20 B/P (MAP) 118/78 (91) 132/78 (96) Pulse Ox 96 90 O2 Delivery Room Air Room Air Room Air Room Air 10/15/16 08:17 O2 Delivery Room Air Intake and Output 10/14/16 10/14/16 10/15/16 14:59 22:59 06:59 Intake Total 1040 ml 1180 ml 840 ml Output Total 600 ml 900 ml Balance 440 ml 280 ml 840 ml ULISES NINO MD October 15, 2016 10:20
[2016-10-15 10:47] VITALS: BP 109/59
--- NOTE | 2016-10-15 11:25 | PDOC ---
PROGRESS NOTES Chief Complaint Chief Complaint 1. bl leg cellulitis 2. sepsis with 1 3. neck pain post fall, spinal stenosis 4. left facial pain with . chronic sinusitis on CT 5. htn 6. hld 7. GERD 8. ckd3 with h/o nephrectomy 9. h/o cervical Ca 10. bl leg chronic lymphedema 11. morbid obesity plan: id, neurosx consult, dr. Upton consulted, got neck steroid shot, and will do steroid for knee OA head CT, NECK ,facial done dc vanco, ct cefepime as per ID cont home meds dvt ppx pain control ptot SW consult for possible rehab tmr History of Present Illness History of Present Illness bl leg erythema better neck pain slightly better post steroid shot, + headache wbc better Vitals Vitals Vital Signs Date Time Temp Pulse Resp B/P (MAP) Pulse Ox O2 Delivery O2 Flow Rate FiO2 10/15/16 10:47 97.8 72 20 109/59 (76) 90 Room Air 97.8 Physical Exam Physical Exam bl leg chronic lymphedema with nodules, bl leg mild erythma General: Alert, Oriented X3, Cooperative Heart: Regular rate, Normal S1, Normal S2 Lungs: Clear Abdomen: Normal bowel sounds, Soft Extremities: No clubbing Labs LABS Laboratory Tests Test 10/15/16 03:33 White Blood Count 12.3 x10^3/uL (4.0-11.0) Red Blood Count 3.62 x10^6/uL (3.50-5.40) Hemoglobin 11.0 g/dL (12.0-15.5) Hematocrit 33.0 % (36.0-47.0) Mean Corpuscular Volume 91 fL (79-100) Mean Corpuscular Hemoglobin 31 pg (25-35) Mean Corpuscular Hemoglobin Concent 34 g/dL (31-37) Red Cell Distribution Width 15.1 % (11.5-14.5) Platelet Count 176 x10^3/uL (140-400) Neutrophils (%) (Auto) 96 % (31-73) Lymphocytes (%) (Auto) 2 % (24-48) Monocytes (%) (Auto) 3 % (0-9) Eosinophils (%) (Auto) 0 % (0-3) Basophils (%) (Auto) 0 % (0-3) Neutrophils # (Auto) 11.8 x10^3uL (1.8-7.7) Lymphocytes # (Auto) 0.2 x10^3/uL (1.0-4.8) Monocytes # (Auto) 0.3 x10^3/uL (0.0-1.1) Eosinophils # (Auto) 0.0 x10^3/uL (0.0-0.7) Basophils # (Auto) 0.0 x10^3/uL (0.0-0.2) Sodium Level 141 mmol/L (136-145) Potassium Level 4.0 mmol/L (3.5-5.1) Chloride Level 106 mmol/L (98-107) Carbon Dioxide Level 25 mmol/L (21-32) Anion Gap 10 (6-14) Blood Urea Nitrogen 30 mg/dL (7-20) Creatinine 1.4 mg/dL (0.6-1.0) Estimated GFR (Cockcroft-Gault) 35.8 Glucose Level 103 mg/dL (70-99) Calcium Level 8.8 mg/dL (8.5-10.1) Review of Systems Review of Systems no fever, chills, sob or chest pain Assessment and Plan Assessmemt and Plan Problems Medical Problems: (1) Cellulitis of lower extremity Status: Acute Problems: Comment Review of Relevant I have reviewed the following items javan (where applicable) has been applied. Labs Laboratory Tests Test 10/14/16 04:55 10/15/16 03:33 White Blood Count 13.2 x10^3/uL (4.0-11.0) 12.3 x10^3/uL (4.0-11.0) Red Blood Count 3.66 x10^6/uL (3.50-5.40) 3.62 x10^6/uL (3.50-5.40) Hemoglobin 11.2 g/dL (12.0-15.5) 11.0 g/dL (12.0-15.5) Hematocrit 33.7 % (36.0-47.0) 33.0 % (36.0-47.0) Mean Corpuscular Volume 92 fL (79-100) 91 fL (79-100) Mean Corpuscular Hemoglobin 31 pg (25-35) 31 pg (25-35) Mean Corpuscular Hemoglobin Concent 33 g/dL (31-37) 34 g/dL (31-37) Red Cell Distribution Width 15.3 % (11.5-14.5) 15.1 % (11.5-14.5) Platelet Count 174 x10^3/uL (140-400) 176 x10^3/uL (140-400) Neutrophils (%) (Auto) 88 % (31-73) 96 % (31-73) Lymphocytes (%) (Auto) 6 % (24-48) 2 % (24-48) Monocytes (%) (Auto) 6 % (0-9) 3 % (0-9) Eosinophils (%) (Auto) 1 % (0-3) 0 % (0-3) Basophils (%) (Auto) 0 % (0-3) 0 % (0-3) Neutrophils # (Auto) 11.6 x10^3uL (1.8-7.7) 11.8 x10^3uL (1.8-7.7) Lymphocytes # (Auto) 0.7 x10^3/uL (1.0-4.8) 0.2 x10^3/uL (1.0-4.8) Monocytes # (Auto) 0.7 x10^3/uL (0.0-1.1) 0.3 x10^3/uL (0.0-1.1) Eosinophils # (Auto) 0.1 x10^3/uL (0.0-0.7) 0.0 x10^3/uL (0.0-0.7) Basophils # (Auto) 0.0 x10^3/uL (0.0-0.2) 0.0 x10^3/uL (0.0-0.2) Sodium Level 145 mmol/L (136-145) 141 mmol/L (136-145) Potassium Level 4.5 mmol/L (3.5-5.1) 4.0 mmol/L (3.5-5.1) Chloride Level 108 mmol/L (98-107) 106 mmol/L (98-107) Carbon Dioxide Level 26 mmol/L (21-32) 25 mmol/L (21-32) Anion Gap 11 (6-14) 10 (6-14) Blood Urea Nitrogen 30 mg/dL (7-20) 30 mg/dL (7-20) Creatinine 1.4 mg/dL (0.6-1.0) 1.4 mg/dL (0.6-1.0) Estimated GFR (Cockcroft-Gault) 35.8 35.8 Glucose Level 104 mg/dL (70-99) 103 mg/dL (70-99) Calcium Level 8.2 mg/dL (8.5-10.1) 8.8 mg/dL (8.5-10.1) Laboratory Tests Test 10/15/16 03:33 White Blood Count 12.3 x10^3/uL (4.0-11.0) Red Blood Count 3.62 x10^6/uL (3.50-5.40) Hemoglobin 11.0 g/dL (12.0-15.5) Hematocrit 33.0 % (36.0-47.0) Mean Corpuscular Volume 91 fL (79-100) Mean Corpuscular Hemoglobin 31 pg (25-35) Mean Corpuscular Hemoglobin Concent 34 g/dL (31-37) Red Cell Distribution Width 15.1 % (11.5-14.5) Platelet Count 176 x10^3/uL (140-400) Neutrophils (%) (Auto) 96 % (31-73) Lymphocytes (%) (Auto) 2 % (24-48) Monocytes (%) (Auto) 3 % (0-9) Eosinophils (%) (Auto) 0 % (0-3) Basophils (%) (Auto) 0 % (0-3) Neutrophils # (Auto) 11.8 x10^3uL (1.8-7.7) Lymphocytes # (Auto) 0.2 x10^3/uL (1.0-4.8) Monocytes # (Auto) 0.3 x10^3/uL (0.0-1.1) Eosinophils # (Auto) 0.0 x10^3/uL (0.0-0.7) Basophils # (Auto) 0.0 x10^3/uL (0.0-0.2) Sodium Level 141 mmol/L (136-145) Potassium Level 4.0 mmol/L (3.5-5.1) Chloride Level 106 mmol/L (98-107) Carbon Dioxide Level 25 mmol/L (21-32) Anion Gap 10 (6-14) Blood Urea Nitrogen 30 mg/dL (7-20) Creatinine 1.4 mg/dL (0.6-1.0) Estimated GFR (Cockcroft-Gault) 35.8 Glucose Level 103 mg/dL (70-99) Calcium Level 8.8 mg/dL (8.5-10.1) Microbiology 10/12/16 Blood Culture - Preliminary, Resulted NO GROWTH AFTER 2 DAYS Medications Current Medications Fentanyl Citrate (Fentanyl 2ml Vial) 25 mcg PRN Q15MIN PRN IV PAIN GREATER THAN 3/10 Last administered on 10/13/16 03:52; Start 10/12/16 at 20:45; Stop at 07:55; Status DC Ondansetron HCl (Zofran) 4 mg 1X ONCE IV Last administered on 10/12/16 21:07 ; Start 10/12/16 at 21:00; Stop 10/12/16 at 21:01; Status DC Acetaminophen (Tylenol) 1,000 mg 1X ONCE PO Last administered on 10/12/16 21: 03; Start 10/12/16 at 21:00; Stop 10/12/16 at 21:01; Status DC Sodium Chloride 1,000 ml @ 1,000 mls/hr 1X ONCE IV Last administered on 21:01; Start 10/12/16 at 21:00; Stop 10/12/16 at 21:59; Status DC Cefepime HCl 2 gm/ Sodium Chloride 100 ml @ 200 mls/hr BID IV Last administered on 10/13/16 10:00; Start 10/12/16 at 21:00; Stop 10/13/16 at 14:54 ; Status DC Vancomycin HCl (Vanco Per Pharmacy) 1 each PRN DAILY PRN MC SEE COMMENTS Last administered on 10/13/16 13:45; Start 10/12/16 at 20:45; Stop 10/14/16 at 13:49 ; Status DC Vancomycin HCl 2 gm/Sodium Chloride 500 ml @ 250 mls/hr 1X ONCE IV Last administered on 10/12/16 21:43; Start 10/12/16 at 21:00; Stop 10/12/16 at 22:59 ; Status DC Ondansetron HCl (Zofran) 4 mg PRN Q8HRS PRN IV NAUSEA/VOMITING Last administered on 10/13/16 17:57; Start 10/12/16 at 22:00; Stop 10/13/16 at 21:59 ; Status DC Sodium Chloride 1,000 ml @ 125 mls/hr Q8H IV Last administered on 10/13/16 07 :56; Start 10/12/16 at 22:30; Stop 10/13/16 at 22:29; Status DC Acetaminophen (Tylenol) 650 mg PRN Q4HRS PRN PO FEVER Last administered on 10/13 07:55; Start 10/12/16 at 22:00; Stop 10/13/16 at 11:21; Status DC Insulin Aspart (NovoLOG) 0-5 UNITS TIDWMEALS SQ ; Start 10/13/16 at 08:00; Stop 10/13/16 at 10:55; Status DC Dextrose (Dextrose 50%-Water Syringe) 12.5 gm PRN Q15MIN PRN IV SEE COMMENTS; Start 10/12/16 at 22:00 Vancomycin HCl 1.25 gm/Sodium Chloride 250 ml @ 167 mls/hr Q24H IV Last administered on 10/13/16 22:06; Start 10/13/16 at 22:00; Stop 10/14/16 at 13:49 ; Status DC Vancomycin HCl 1 each 1X ONCE MC ; Start 10/14/16 at 21:30; Stop 10/14/16 at 21 :31; Status Cancel Acetaminophen (Tylenol) 650 mg PRN Q6HRS PRN PO FEVER; Start 10/13/16 at 10:15 Ondansetron HCl (Zofran) 4 mg PRN Q6HRS PRN IV NAUSEA/VOMITING Last administered on 10/14/16 21:08; Start 10/13/16 at 10:15 Morphine Sulfate 2 mg PRN Q2HR PRN IV PAIN Last administered on 10/13/16 16:48 ; Start 10/13/16 at 10:15 Tramadol HCl (Ultram) 50 mg PRN Q6HRS PRN PO PAIN Last administered on 06:17; Start 10/13/16 at 10:15 Hydralazine HCl (Apresoline) 10 mg PRN Q4HRS PRN IVP ELEVATED BP, SEE COMMENTS ; Start 10/13/16 at 10:15 Docusate Sodium (Colace) 100 mg PRN DAILY PRN PO CONSTIPATION; Start 10/13/16 at 10:15 Allopurinol (Zyloprim) 100 mg DAILY PO Last administered on 10/15/16 08:04; Start 10/13/16 at 12:00 Aspirin (Ecotrin) 81 mg DAILY PO Last administered on 10/15/16 08:04; Start at 12:00 Citalopram Hydrobromide (CeleXA) 10 mg DAILY PO Last administered on 10/15/16 08:04; Start 10/13/16 at 12:00 Furosemide (Lasix) 40 mg DAILY PO Last administered on 10/15/16 08:04; Start 10/13/16 at 12:00 Levothyroxine Sodium (Synthroid) 75 mcg DAILY07 PO Last administered on 06:09; Start 10/13/16 at 15:30 Pantoprazole Sodium (Protonix) 40 mg DAILYAC PO Last administered on 10/15/16 08:04; Start 10/13/16 at 11:30 Simvastatin (Zocor) 80 mg QHS PO Last administered on 10/14/16 21:11; Start at 21:00 Enoxaparin Sodium (Lovenox 40mg Syringe) 40 mg Q24H SQ ; Start 10/13/16 at 13:15 ; Stop 10/13/16 at 13:15; Status DC Enoxaparin Sodium (Lovenox 30mg Syringe) 30 mg Q24H SQ Last administered on 16:04; Start 10/13/16 at 14:00 Meropenem 500 mg/ Sodium Chloride 50 ml @ 100 mls/hr Q6HRS IV Last administered on 10/15/16 06:03; Start 10/13/16 at 16:00 Acetaminophen/ Hydrocodone Bitart (Lortab 5/325) 1 tab PRN Q4HRS PRN PO MODERATE TO SEVERE PAIN Last administered on 10/14/16 22:26; Start 10/14/16 at 10:45 Methylprednisolone Acetate (DEPO-Medrol 40MG VIAL) 40 mg 1X ONCE IM ; Start at 15:45; Stop 10/14/16 at 15:49; Status DC Bupivacaine HCl (Sensorcaine-Mpf 0.25%) 10 ml 1X ONCE IJ ; Start 10/14/16 at 15 :45; Stop 10/14/16 at 15:50; Status DC Diclofenac Sodium (Voltaren) 1 janet BID TP Last administered on 10/15/16 08:07 ; Start 10/14/16 at 21:00 Acetaminophen/ Butalbital/ Caffeine (Fioricet) 2 tab PRN Q6HRS PRN PO MIGRAINE HEADACHE Last administered on 10/15/16 06:51; Start 10/14/16 at 16:30 Albuterol Sulfate (Ventolin Neb Soln) 2.5 mg PRN Q4HRS PRN NEB SHORTNESS OF BREATH; Start 10/15/16 at 08:45 Active Scripts Active Reported Celexa (Citalopram Hydrobromide) 10 Mg Tablet 10 Mg PO DAILY Allopurinol 100 Mg Tablet 100 Mg PO DAILY Pantoprazole Sodium 40 Mg Tablet.dr 40 Mg PO DAILY Aspir-Low (Aspirin) 81 Mg Tablet.dr 1 Tab PO DAILY Levothyroxine Sodium 75 Mcg Tablet 1 Tab PO DAILY Simvastatin 80 Mg Tablet 1 Tab PO QHS Furosemide 40 Mg Tablet 1 Tab PO DAILY Vitals/I & O Vital Sign - Last 24 Hours 10/14/16 10/14/16 10/14/16 10/14/16 15:00 19:00 20:30 22:26 Temp 98.2 97.9 98.2 97.9 Pulse 76 77 Resp 24 18 20 B/P (MAP) 130/74 (92) 129/84 (99) Pulse Ox 97 93 O2 Delivery Room Air Room Air Room Air Room Air 10/14/16 10/14/16 10/15/16 10/15/16 22:56 23:26 07:00 08:17 Temp 98.6 97.8 98.6 97.8 Pulse 88 81 Resp 18 18 20 B/P (MAP) 118/78 (91) 132/78 (96) Pulse Ox 96 90 O2 Delivery Room Air Room Air Room Air Room Air 10/15/16 10:47 Temp 97.8 97.8 Pulse 72 Resp 20 B/P (MAP) 109/59 (76) Pulse Ox 90 O2 Delivery Room Air Intake and Output 5/28/17 5/28/17 5/29/17 15:00 23:00 07:00 Intake Total 940 ml 1180 ml 840 ml Output Total 600 ml 900 ml Balance 340 ml 280 ml 840 ml ISAURA ABBOTT MD October 15, 2016 11:25
[2016-10-15] MEDS: ENOXAPARIN 30 MG/0.3 ML SYRINGE. SQ SCH (13:38)
[2016-10-15 14:57] VITALS: BP 112/56
[2016-10-15] MEDS: HYDROcodone/APAP 5/325MG 1 TAB TABLET PO PRN (15:11)
[2016-10-15] MEDS ORDERED: diphenhydrAMINE HCL 25 MG CAPSULE PO ONE (18:00)
[2016-10-15] MEDS ORDERED: DIPHENHYDRAMINE/ZINC ACETATE 2%/0.1% TOPICAL CREAM 28GM TUBE. TP PRN (18:00)
[2016-10-15 19:00] VITALS: BP 104/59
[2016-10-15] MEDS: SIMVASTATIN 40 MG TABLET. PO SCH (20:07)
[2016-10-15 23:03] VITALS: BP 114/60
[2016-10-16 03:00] VITALS: BP 140/73
[2016-10-16 04:27] LABS: BASO % 0 % (0-3); EOS % 4 % (0-3); HEMATOCRIT 32.5 % (36.0-47.0); HEMOGLOBIN 10.6 g/dL (12.0-15.5); LYMPH # 0.6 x10^3/uL (1.0-4.8); LYMPH % 6 % (24-48); MEAN CORPUSCULAR HEMOGLOBIN 30 pg (25-35); MEAN CORPUSCULAR HGB CONC 33 g/dL (31-37); MEAN CORPUSCULAR VOLUME 92 fL (79-100); MONO % 8 % (0-9); NEUT % 82 % (31-73); PLATELET COUNT 183 x10^3/uL (140-400); RED BLOOD COUNT 3.51 x10^6/uL (3.50-5.40); RED CELL DISTRIBUTION WIDTH 14.5 % (11.5-14.5); WHITE BLOOD COUNT 9.5 x10^3/uL (4.0-11.0)
[2016-10-16 05:06] LABS: CALCIUM 8.6 mg/dL (8.5-10.1); CREATININE 1.6 mg/dL (0.6-1.0); GFR 30.7; POTASSIUM 4.2 mmol/L (3.5-5.1)
[2016-10-16] MEDS: MEROPENEM 500 MG in IV NORMAL SALINE 50ML 50 ML IV SCH ×4 (05:54→23:33)
[2016-10-16 07:00] VITALS: BP 138/71
[2016-10-16] MEDS: LEVOTHYROXINE 75 MCG TABLET PO SCH (07:05)
[2016-10-16] MEDS: PANTOPRAZOLE 40 MG TABLET.DR. PO SCH (07:05)
--- NOTE | 2016-10-16 09:03 | PDOC ---
Infectious Disease Note Subjective Subjective Some better yet. Received a shot of steroids Improved PANG and joint ache Feels a little tight in her thighs ROS ROS GEN: Denies fevers, chills, sweats HEENT: Denies blurred vision, sore throat CV: Denies chest pain RESP: Denies shortness of air, cough GI: Denies n/v/d NEURO: Denies confusion, dizziness MSK: Denies weakness, joint pain/swelling Vital Sign Vital Signs Vital Signs Date Time Temp Pulse Resp B/P (MAP) Pulse Ox O2 Delivery O2 Flow Rate FiO2 10/16/16 07:52 Room Air 10/16/16 07:00 97.9 63 20 138/71 (93) 98 97.9 Physical Exam PHYSICAL EXAM GENERAL: NAD, coop - looks better NECK: Limited active range of motion improved. No adenopathy. PEERL/ OC/Op - clear LUNGS: Clear to auscultation. HEART: Normal S1 and S2. ABDOMEN: Obese, bowel sounds are present, soft, nontender. EXTREMITIES: Bilateral lower extremity lymphedema with multiple large cutaneous nodules, greater on the right. No gross redness. No cyanosis. SKIN: Without rash. Warm to touch. NEUROLOGIC: Alert and oriented x 3. Moves all extremities Labs Lab Laboratory Tests Test 10/16/16 03:20 White Blood Count 9.5 x10^3/uL (4.0-11.0) Red Blood Count 3.51 x10^6/uL (3.50-5.40) Hemoglobin 10.6 g/dL (12.0-15.5) Hematocrit 32.5 % (36.0-47.0) Mean Corpuscular Volume 92 fL (79-100) Mean Corpuscular Hemoglobin 30 pg (25-35) Mean Corpuscular Hemoglobin Concent 33 g/dL (31-37) Red Cell Distribution Width 14.5 % (11.5-14.5) Platelet Count 183 x10^3/uL (140-400) Neutrophils (%) (Auto) 82 % (31-73) Lymphocytes (%) (Auto) 6 % (24-48) Monocytes (%) (Auto) 8 % (0-9) Eosinophils (%) (Auto) 4 % (0-3) Basophils (%) (Auto) 0 % (0-3) Neutrophils # (Auto) 7.8 x10^3uL (1.8-7.7) Lymphocytes # (Auto) 0.6 x10^3/uL (1.0-4.8) Monocytes # (Auto) 0.8 x10^3/uL (0.0-1.1) Eosinophils # (Auto) 0.4 x10^3/uL (0.0-0.7) Basophils # (Auto) 0.0 x10^3/uL (0.0-0.2) Sodium Level 143 mmol/L (136-145) Potassium Level 4.2 mmol/L (3.5-5.1) Chloride Level 108 mmol/L (98-107) Carbon Dioxide Level 24 mmol/L (21-32) Anion Gap 11 (6-14) Blood Urea Nitrogen 41 mg/dL (7-20) Creatinine 1.6 mg/dL (0.6-1.0) Estimated GFR (Cockcroft-Gault) 30.7 Glucose Level 104 mg/dL (70-99) Calcium Level 8.6 mg/dL (8.5-10.1) Objective Assessment Fever - better Leukocytosis - better Chronic sinusitis on CT Chronic lymphedema lower extremities Neck pain h/o fall. 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 GPC in urine ? colonization h/o right nephrectomy h/o Enterobacter (Sen aminoglycosides, carbapenems & quinolones). Plan Plan of Care Cont meropenem for now but to po 10/17 if better NGTD OCTAVIANO OVALLE MD October 16, 2016 09:03
[2016-10-16] MEDS: ALLOPURINOL 100 MG TABLET. PO SCH (09:17)
[2016-10-16] MEDS: CITALOPRAM 10 MG TABLET. PO SCH (09:17)
[2016-10-16] MEDS: ASPIRIN ENTERIC COATED 81 MG TABLET.DR. PO SCH (09:17)
[2016-10-16] MEDS: DICLOFENAC SODIUM 1% TOPICAL GEL 100GM TUBE. TP SCH ×2 (09:18→20:00)
[2016-10-16] MEDS: FUROSEMIDE 40 MG TABLET. PO SCH (09:27)
--- NOTE | 2016-10-16 09:53 | PDOC ---
PROGRESS NOTES Subjective Subjective She feels better but hesitant about going home and not interested in going to SNF. Objective Objective Vital Signs Date Time Temp Pulse Resp B/P (MAP) Pulse Ox O2 Delivery O2 Flow Rate FiO2 10/16/16 07:52 Room Air 10/16/16 07:00 97.9 63 20 138/71 (93) 98 97.9 Intake and Output 10/16/16 07:00 Intake Total 2400 ml Balance 2400 ml Intake Oral 2300 ml IV Total 100 ml # Voids 3 Physical Exam Physical Exam She is independent with her mobility at roller walker level and neck stiffness persists but less pain and headaches. Assessment Assessment Problems Medical Problems: (1) Cellulitis of lower extremity Status: Acute Plan Plan of Care To ask to see about nodular skin lesions over right leg. Comment Review of Relevant I have reviewed the following items javan (where applicable) has been applied. Labs Laboratory Tests Test 10/15/16 03:33 10/16/16 03:20 White Blood Count 12.3 x10^3/uL (4.0-11.0) 9.5 x10^3/uL (4.0-11.0) Red Blood Count 3.62 x10^6/uL (3.50-5.40) 3.51 x10^6/uL (3.50-5.40) Hemoglobin 11.0 g/dL (12.0-15.5) 10.6 g/dL (12.0-15.5) Hematocrit 33.0 % (36.0-47.0) 32.5 % (36.0-47.0) Mean Corpuscular Volume 91 fL (79-100) 92 fL (79-100) Mean Corpuscular Hemoglobin 31 pg (25-35) 30 pg (25-35) Mean Corpuscular Hemoglobin Concent 34 g/dL (31-37) 33 g/dL (31-37) Red Cell Distribution Width 15.1 % (11.5-14.5) 14.5 % (11.5-14.5) Platelet Count 176 x10^3/uL (140-400) 183 x10^3/uL (140-400) Neutrophils (%) (Auto) 96 % (31-73) 82 % (31-73) Lymphocytes (%) (Auto) 2 % (24-48) 6 % (24-48) Monocytes (%) (Auto) 3 % (0-9) 8 % (0-9) Eosinophils (%) (Auto) 0 % (0-3) 4 % (0-3) Basophils (%) (Auto) 0 % (0-3) 0 % (0-3) Neutrophils # (Auto) 11.8 x10^3uL (1.8-7.7) 7.8 x10^3uL (1.8-7.7) Lymphocytes # (Auto) 0.2 x10^3/uL (1.0-4.8) 0.6 x10^3/uL (1.0-4.8) Monocytes # (Auto) 0.3 x10^3/uL (0.0-1.1) 0.8 x10^3/uL (0.0-1.1) Eosinophils # (Auto) 0.0 x10^3/uL (0.0-0.7) 0.4 x10^3/uL (0.0-0.7) Basophils # (Auto) 0.0 x10^3/uL (0.0-0.2) 0.0 x10^3/uL (0.0-0.2) Sodium Level 141 mmol/L (136-145) 143 mmol/L (136-145) Potassium Level 4.0 mmol/L (3.5-5.1) 4.2 mmol/L (3.5-5.1) Chloride Level 106 mmol/L (98-107) 108 mmol/L (98-107) Carbon Dioxide Level 25 mmol/L (21-32) 24 mmol/L (21-32) Anion Gap 10 (6-14) 11 (6-14) Blood Urea Nitrogen 30 mg/dL (7-20) 41 mg/dL (7-20) Creatinine 1.4 mg/dL (0.6-1.0) 1.6 mg/dL (0.6-1.0) Estimated GFR (Cockcroft-Gault) 35.8 30.7 Glucose Level 103 mg/dL (70-99) 104 mg/dL (70-99) Calcium Level 8.8 mg/dL (8.5-10.1) 8.6 mg/dL (8.5-10.1) Laboratory Tests Test 10/16/16 03:20 White Blood Count 9.5 x10^3/uL (4.0-11.0) Red Blood Count 3.51 x10^6/uL (3.50-5.40) Hemoglobin 10.6 g/dL (12.0-15.5) Hematocrit 32.5 % (36.0-47.0) Mean Corpuscular Volume 92 fL (79-100) Mean Corpuscular Hemoglobin 30 pg (25-35) Mean Corpuscular Hemoglobin Concent 33 g/dL (31-37) Red Cell Distribution Width 14.5 % (11.5-14.5) Platelet Count 183 x10^3/uL (140-400) Neutrophils (%) (Auto) 82 % (31-73) Lymphocytes (%) (Auto) 6 % (24-48) Monocytes (%) (Auto) 8 % (0-9) Eosinophils (%) (Auto) 4 % (0-3) Basophils (%) (Auto) 0 % (0-3) Neutrophils # (Auto) 7.8 x10^3uL (1.8-7.7) Lymphocytes # (Auto) 0.6 x10^3/uL (1.0-4.8) Monocytes # (Auto) 0.8 x10^3/uL (0.0-1.1) Eosinophils # (Auto) 0.4 x10^3/uL (0.0-0.7) Basophils # (Auto) 0.0 x10^3/uL (0.0-0.2) Sodium Level 143 mmol/L (136-145) Potassium Level 4.2 mmol/L (3.5-5.1) Chloride Level 108 mmol/L (98-107) Carbon Dioxide Level 24 mmol/L (21-32) Anion Gap 11 (6-14) Blood Urea Nitrogen 41 mg/dL (7-20) Creatinine 1.6 mg/dL (0.6-1.0) Estimated GFR (Cockcroft-Gault) 30.7 Glucose Level 104 mg/dL (70-99) Calcium Level 8.6 mg/dL (8.5-10.1) Microbiology 10/12/16 Blood Culture - Preliminary, Resulted NO GROWTH AFTER 3 DAYS 10/12/16 Urine Culture - Preliminary, Resulted 10/12/16 Urine Culture Result 1 (SALTY) - Preliminary, Resulted Medications Current Medications Fentanyl Citrate (Fentanyl 2ml Vial) 25 mcg PRN Q15MIN PRN IV PAIN GREATER THAN 3/10 Last administered on 10/13/16 03:52; Start 10/12/16 at 20:45; Stop at 07:55; Status DC Ondansetron HCl (Zofran) 4 mg 1X ONCE IV Last administered on 10/12/16 21:07 ; Start 10/12/16 at 21:00; Stop 10/12/16 at 21:01; Status DC Acetaminophen (Tylenol) 1,000 mg 1X ONCE PO Last administered on 10/12/16 21: 03; Start 10/12/16 at 21:00; Stop 10/12/16 at 21:01; Status DC Sodium Chloride 1,000 ml @ 1,000 mls/hr 1X ONCE IV Last administered on 21:01; Start 10/12/16 at 21:00; Stop 10/12/16 at 21:59; Status DC Cefepime HCl 2 gm/ Sodium Chloride 100 ml @ 200 mls/hr BID IV Last administered on 10/13/16 10:00; Start 10/12/16 at 21:00; Stop 10/13/16 at 14:54 ; Status DC Vancomycin HCl (Vanco Per Pharmacy) 1 each PRN DAILY PRN MC SEE COMMENTS Last administered on 10/13/16 13:45; Start 10/12/16 at 20:45; Stop 10/14/16 at 13:49 ; Status DC Vancomycin HCl 2 gm/Sodium Chloride 500 ml @ 250 mls/hr 1X ONCE IV Last administered on 10/12/16 21:43; Start 10/12/16 at 21:00; Stop 10/12/16 at 22:59 ; Status DC Ondansetron HCl (Zofran) 4 mg PRN Q8HRS PRN IV NAUSEA/VOMITING Last administered on 10/13/16 17:57; Start 10/12/16 at 22:00; Stop 10/13/16 at 21:59 ; Status DC Sodium Chloride 1,000 ml @ 125 mls/hr Q8H IV Last administered on 10/13/16 07 :56; Start 10/12/16 at 22:30; Stop 10/13/16 at 22:29; Status DC Acetaminophen (Tylenol) 650 mg PRN Q4HRS PRN PO FEVER Last administered on 10/13 07:55; Start 10/12/16 at 22:00; Stop 10/13/16 at 11:21; Status DC Insulin Aspart (NovoLOG) 0-5 UNITS TIDWMEALS SQ ; Start 10/13/16 at 08:00; Stop 10/13/16 at 10:55; Status DC Dextrose (Dextrose 50%-Water Syringe) 12.5 gm PRN Q15MIN PRN IV SEE COMMENTS; Start 10/12/16 at 22:00 Vancomycin HCl 1.25 gm/Sodium Chloride 250 ml @ 167 mls/hr Q24H IV Last administered on 10/13/16 22:06; Start 10/13/16 at 22:00; Stop 10/14/16 at 13:49 ; Status DC Vancomycin HCl 1 each 1X ONCE MC ; Start 10/14/16 at 21:30; Stop 10/14/16 at 21 :31; Status Cancel Acetaminophen (Tylenol) 650 mg PRN Q6HRS PRN PO FEVER; Start 10/13/16 at 10:15 Ondansetron HCl (Zofran) 4 mg PRN Q6HRS PRN IV NAUSEA/VOMITING Last administered on 10/14/16 21:08; Start 10/13/16 at 10:15 Morphine Sulfate 2 mg PRN Q2HR PRN IV PAIN Last administered on 10/13/16 16:48 ; Start 10/13/16 at 10:15 Tramadol HCl (Ultram) 50 mg PRN Q6HRS PRN PO PAIN Last administered on 06:17; Start 10/13/16 at 10:15 Hydralazine HCl (Apresoline) 10 mg PRN Q4HRS PRN IVP ELEVATED BP, SEE COMMENTS ; Start 10/13/16 at 10:15 Docusate Sodium (Colace) 100 mg PRN DAILY PRN PO CONSTIPATION; Start 10/13/16 at 10:15 Allopurinol (Zyloprim) 100 mg DAILY PO Last administered on 10/16/16 09:17; Start 10/13/16 at 12:00 Aspirin (Ecotrin) 81 mg DAILY PO Last administered on 10/16/16 09:17; Start at 12:00 Citalopram Hydrobromide (CeleXA) 10 mg DAILY PO Last administered on 10/16/16 09:17; Start 10/13/16 at 12:00 Furosemide (Lasix) 40 mg DAILY PO Last administered on 10/15/16 08:04; Start 10/13/16 at 12:00; Stop 10/16/16 at 09:25; Status DC Levothyroxine Sodium (Synthroid) 75 mcg DAILY07 PO Last administered on 07:05; Start 10/13/16 at 15:30 Pantoprazole Sodium (Protonix) 40 mg DAILYAC PO Last administered on 10/16/16 07:05; Start 10/13/16 at 11:30 Simvastatin (Zocor) 80 mg QHS PO Last administered on 10/15/16 20:07; Start at 21:00 Enoxaparin Sodium (Lovenox 40mg Syringe) 40 mg Q24H SQ ; Start 10/13/16 at 13:15 ; Stop 10/13/16 at 13:15; Status DC Enoxaparin Sodium (Lovenox 30mg Syringe) 30 mg Q24H SQ Last administered on 13:38; Start 10/13/16 at 14:00 Meropenem 500 mg/ Sodium Chloride 50 ml @ 100 mls/hr Q6HRS IV Last administered on 10/16/16 05:54; Start 10/13/16 at 16:00 Acetaminophen/ Hydrocodone Bitart (Lortab 5/325) 1 tab PRN Q4HRS PRN PO MODERATE TO SEVERE PAIN Last administered on 10/15/16 15:11; Start 10/14/16 at 10:45 Methylprednisolone Acetate (DEPO-Medrol 40MG VIAL) 40 mg 1X ONCE IM ; Start at 15:45; Stop 10/14/16 at 15:49; Status DC Bupivacaine HCl (Sensorcaine-Mpf 0.25%) 10 ml 1X ONCE IJ ; Start 10/14/16 at 15 :45; Stop 10/14/16 at 15:50; Status DC Diclofenac Sodium (Voltaren) 1 janet BID TP Last administered on 10/16/16 09:18 ; Start 10/14/16 at 21:00 Acetaminophen/ Butalbital/ Caffeine (Fioricet) 2 tab PRN Q6HRS PRN PO MIGRAINE HEADACHE Last administered on 10/15/16 06:51; Start 10/14/16 at 16:30 Albuterol Sulfate (Ventolin Neb Soln) 2.5 mg PRN Q4HRS PRN NEB SHORTNESS OF BREATH; Start 10/15/16 at 08:45 Diphenhydramine HCl (Benadryl) 25 mg 1X ONCE PO Last administered on 18:18; Start 10/15/16 at 18:00; Stop 10/15/16 at 18:10; Status DC Zinc Acetate/ Diphenhydramine (Benadryl Topical) 1 janet PRN Q4HRS PRN TP ITCHING ; Start 10/15/16 at 18:00 Active Scripts Active Reported Celexa (Citalopram Hydrobromide) 10 Mg Tablet 10 Mg PO DAILY Allopurinol 100 Mg Tablet 100 Mg PO DAILY Pantoprazole Sodium 40 Mg Tablet. 40 Mg PO DAILY Aspir-Low (Aspirin) 81 Mg Tablet.dr 1 Tab PO DAILY Levothyroxine Sodium 75 Mcg Tablet 1 Tab PO DAILY Simvastatin 80 Mg Tablet 1 Tab PO QHS Furosemide 40 Mg Tablet 1 Tab PO DAILY Vitals/I & O Vital Sign - Last 24 Hours 10/15/16 10/15/16 10/15/16 10/15/16 10:47 11:24 14:57 16:11 Temp 97.8 97.7 97.8 97.7 Pulse 72 87 Resp 20 20 B/P (MAP) 109/59 (76) 112/56 (74) Pulse Ox 90 90 92 92 O2 Delivery Room Air Room Air Room Air Room Air 10/15/16 10/15/16 10/15/16 10/16/16 19:00 20:00 23:03 03:00 Temp 99.0 97.7 97.2 99.0 97.7 97.2 Pulse 75 75 72 Resp 18 18 18 B/P (MAP) 104/59 (74) 114/60 (78) 140/73 (95) Pulse Ox 92 90 90 O2 Delivery Room Air Room Air Room Air Room Air 10/16/16 10/16/16 07:00 07:52 Temp 97.9 97.9 Pulse 63 Resp 20 B/P (MAP) 138/71 (93) Pulse Ox 98 O2 Delivery Room Air Room Air Intake and Output 10/15/16 10/15/16 10/16/16 15:00 23:00 07:00 Intake Total 500 ml 900 ml 1000 ml Balance 500 ml 900 ml 1000 ml ULISES NINO MD October 16, 2016 09:53
[2016-10-16 11:00] VITALS: BP 140/70
--- NOTE | 2016-10-16 11:02 | PDOC ---
PROGRESS NOTES Chief Complaint Chief Complaint 1. bl leg cellulitis 2. sepsis with 1 3. neck pain post fall, spinal stenosis 4. left facial pain with . chronic sinusitis on CT 5. htn 6. hld 7. GERD 8. ckd3 with h/o nephrectomy 9. h/o cervical Ca 10. bl leg chronic lymphedema 11. morbid obesity plan: id, neurosx consult, dr. Upton consulted, got neck steroid shot, and will do steroid for knee OA head CT, NECK ,facial done dc vanco, ct cefepime as per ID cont home meds dvt ppx pain control ptot HOLD lasix for now given Cr 1.6 from 1.4 baseline dc tmr History of Present Illness History of Present Illness bl leg erythema stable neck pain slightly better post steroid shot, headache better wbc better very anxious, insisted that dr. Souza wants her to be on lasix iv. and insist her bl legs cellulitis are not improving, altho i told her wbc normal now refused PT refused rehab Vitals Vitals Vital Signs Date Time Temp Pulse Resp B/P (MAP) Pulse Ox O2 Delivery O2 Flow Rate FiO2 10/16/16 07:52 Room Air 10/16/16 07:00 97.9 63 20 138/71 (93) 98 97.9 Physical Exam Physical Exam bl leg chronic lymphedema with nodules, bl leg mild erythma General: Alert, Oriented X3, Cooperative Heart: Regular rate, Normal S1, Normal S2 Lungs: Clear Abdomen: Normal bowel sounds, Soft Extremities: No clubbing Labs LABS Laboratory Tests Test 10/16/16 03:20 White Blood Count 9.5 x10^3/uL (4.0-11.0) Red Blood Count 3.51 x10^6/uL (3.50-5.40) Hemoglobin 10.6 g/dL (12.0-15.5) Hematocrit 32.5 % (36.0-47.0) Mean Corpuscular Volume 92 fL (79-100) Mean Corpuscular Hemoglobin 30 pg (25-35) Mean Corpuscular Hemoglobin Concent 33 g/dL (31-37) Red Cell Distribution Width 14.5 % (11.5-14.5) Platelet Count 183 x10^3/uL (140-400) Neutrophils (%) (Auto) 82 % (31-73) Lymphocytes (%) (Auto) 6 % (24-48) Monocytes (%) (Auto) 8 % (0-9) Eosinophils (%) (Auto) 4 % (0-3) Basophils (%) (Auto) 0 % (0-3) Neutrophils # (Auto) 7.8 x10^3uL (1.8-7.7) Lymphocytes # (Auto) 0.6 x10^3/uL (1.0-4.8) Monocytes # (Auto) 0.8 x10^3/uL (0.0-1.1) Eosinophils # (Auto) 0.4 x10^3/uL (0.0-0.7) Basophils # (Auto) 0.0 x10^3/uL (0.0-0.2) Sodium Level 143 mmol/L (136-145) Potassium Level 4.2 mmol/L (3.5-5.1) Chloride Level 108 mmol/L (98-107) Carbon Dioxide Level 24 mmol/L (21-32) Anion Gap 11 (6-14) Blood Urea Nitrogen 41 mg/dL (7-20) Creatinine 1.6 mg/dL (0.6-1.0) Estimated GFR (Cockcroft-Gault) 30.7 Glucose Level 104 mg/dL (70-99) Calcium Level 8.6 mg/dL (8.5-10.1) Review of Systems Review of Systems no fever, chills, sob or chest pain Assessment and Plan Assessmemt and Plan Problems Medical Problems: (1) Cellulitis of lower extremity Status: Acute Problems: Comment Review of Relevant I have reviewed the following items javan (where applicable) has been applied. Labs Laboratory Tests Test 10/15/16 03:33 10/16/16 03:20 White Blood Count 12.3 x10^3/uL (4.0-11.0) 9.5 x10^3/uL (4.0-11.0) Red Blood Count 3.62 x10^6/uL (3.50-5.40) 3.51 x10^6/uL (3.50-5.40) Hemoglobin 11.0 g/dL (12.0-15.5) 10.6 g/dL (12.0-15.5) Hematocrit 33.0 % (36.0-47.0) 32.5 % (36.0-47.0) Mean Corpuscular Volume 91 fL (79-100) 92 fL (79-100) Mean Corpuscular Hemoglobin 31 pg (25-35) 30 pg (25-35) Mean Corpuscular Hemoglobin Concent 34 g/dL (31-37) 33 g/dL (31-37) Red Cell Distribution Width 15.1 % (11.5-14.5) 14.5 % (11.5-14.5) Platelet Count 176 x10^3/uL (140-400) 183 x10^3/uL (140-400) Neutrophils (%) (Auto) 96 % (31-73) 82 % (31-73) Lymphocytes (%) (Auto) 2 % (24-48) 6 % (24-48) Monocytes (%) (Auto) 3 % (0-9) 8 % (0-9) Eosinophils (%) (Auto) 0 % (0-3) 4 % (0-3) Basophils (%) (Auto) 0 % (0-3) 0 % (0-3) Neutrophils # (Auto) 11.8 x10^3uL (1.8-7.7) 7.8 x10^3uL (1.8-7.7) Lymphocytes # (Auto) 0.2 x10^3/uL (1.0-4.8) 0.6 x10^3/uL (1.0-4.8) Monocytes # (Auto) 0.3 x10^3/uL (0.0-1.1) 0.8 x10^3/uL (0.0-1.1) Eosinophils # (Auto) 0.0 x10^3/uL (0.0-0.7) 0.4 x10^3/uL (0.0-0.7) Basophils # (Auto) 0.0 x10^3/uL (0.0-0.2) 0.0 x10^3/uL (0.0-0.2) Sodium Level 141 mmol/L (136-145) 143 mmol/L (136-145) Potassium Level 4.0 mmol/L (3.5-5.1) 4.2 mmol/L (3.5-5.1) Chloride Level 106 mmol/L (98-107) 108 mmol/L (98-107) Carbon Dioxide Level 25 mmol/L (21-32) 24 mmol/L (21-32) Anion Gap 10 (6-14) 11 (6-14) Blood Urea Nitrogen 30 mg/dL (7-20) 41 mg/dL (7-20) Creatinine 1.4 mg/dL (0.6-1.0) 1.6 mg/dL (0.6-1.0) Estimated GFR (Cockcroft-Gault) 35.8 30.7 Glucose Level 103 mg/dL (70-99) 104 mg/dL (70-99) Calcium Level 8.8 mg/dL (8.5-10.1) 8.6 mg/dL (8.5-10.1) Laboratory Tests Test 10/16/16 03:20 White Blood Count 9.5 x10^3/uL (4.0-11.0) Red Blood Count 3.51 x10^6/uL (3.50-5.40) Hemoglobin 10.6 g/dL (12.0-15.5) Hematocrit 32.5 % (36.0-47.0) Mean Corpuscular Volume 92 fL (79-100) Mean Corpuscular Hemoglobin 30 pg (25-35) Mean Corpuscular Hemoglobin Concent 33 g/dL (31-37) Red Cell Distribution Width 14.5 % (11.5-14.5) Platelet Count 183 x10^3/uL (140-400) Neutrophils (%) (Auto) 82 % (31-73) Lymphocytes (%) (Auto) 6 % (24-48) Monocytes (%) (Auto) 8 % (0-9) Eosinophils (%) (Auto) 4 % (0-3) Basophils (%) (Auto) 0 % (0-3) Neutrophils # (Auto) 7.8 x10^3uL (1.8-7.7) Lymphocytes # (Auto) 0.6 x10^3/uL (1.0-4.8) Monocytes # (Auto) 0.8 x10^3/uL (0.0-1.1) Eosinophils # (Auto) 0.4 x10^3/uL (0.0-0.7) Basophils # (Auto) 0.0 x10^3/uL (0.0-0.2) Sodium Level 143 mmol/L (136-145) Potassium Level 4.2 mmol/L (3.5-5.1) Chloride Level 108 mmol/L (98-107) Carbon Dioxide Level 24 mmol/L (21-32) Anion Gap 11 (6-14) Blood Urea Nitrogen 41 mg/dL (7-20) Creatinine 1.6 mg/dL (0.6-1.0) Estimated GFR (Cockcroft-Gault) 30.7 Glucose Level 104 mg/dL (70-99) Calcium Level 8.6 mg/dL (8.5-10.1) Microbiology 10/12/16 Blood Culture - Preliminary, Resulted NO GROWTH AFTER 3 DAYS 10/12/16 Urine Culture - Preliminary, Resulted 10/12/16 Urine Culture Result 1 (SALTY) - Preliminary, Resulted Medications Current Medications Fentanyl Citrate (Fentanyl 2ml Vial) 25 mcg PRN Q15MIN PRN IV PAIN GREATER THAN 3/10 Last administered on 10/13/16 03:52; Start 10/12/16 at 20:45; Stop at 07:55; Status DC Ondansetron HCl (Zofran) 4 mg 1X ONCE IV Last administered on 10/12/16 21:07 ; Start 10/12/16 at 21:00; Stop 10/12/16 at 21:01; Status DC Acetaminophen (Tylenol) 1,000 mg 1X ONCE PO Last administered on 10/12/16 21: 03; Start 10/12/16 at 21:00; Stop 10/12/16 at 21:01; Status DC Sodium Chloride 1,000 ml @ 1,000 mls/hr 1X ONCE IV Last administered on 21:01; Start 10/12/16 at 21:00; Stop 10/12/16 at 21:59; Status DC Cefepime HCl 2 gm/ Sodium Chloride 100 ml @ 200 mls/hr BID IV Last administered on 10/13/16 10:00; Start 10/12/16 at 21:00; Stop 10/13/16 at 14:54 ; Status DC Vancomycin HCl (Vanco Per Pharmacy) 1 each PRN DAILY PRN MC SEE COMMENTS Last administered on 10/13/16 13:45; Start 10/12/16 at 20:45; Stop 10/14/16 at 13:49 ; Status DC Vancomycin HCl 2 gm/Sodium Chloride 500 ml @ 250 mls/hr 1X ONCE IV Last administered on 10/12/16 21:43; Start 10/12/16 at 21:00; Stop 10/12/16 at 22:59 ; Status DC Ondansetron HCl (Zofran) 4 mg PRN Q8HRS PRN IV NAUSEA/VOMITING Last administered on 10/13/16 17:57; Start 10/12/16 at 22:00; Stop 10/13/16 at 21:59 ; Status DC Sodium Chloride 1,000 ml @ 125 mls/hr Q8H IV Last administered on 10/13/16 07 :56; Start 10/12/16 at 22:30; Stop 10/13/16 at 22:29; Status DC Acetaminophen (Tylenol) 650 mg PRN Q4HRS PRN PO FEVER Last administered on 10/13 07:55; Start 10/12/16 at 22:00; Stop 10/13/16 at 11:21; Status DC Insulin Aspart (NovoLOG) 0-5 UNITS TIDWMEALS SQ ; Start 10/13/16 at 08:00; Stop 10/13/16 at 10:55; Status DC Dextrose (Dextrose 50%-Water Syringe) 12.5 gm PRN Q15MIN PRN IV SEE COMMENTS; Start 10/12/16 at 22:00 Vancomycin HCl 1.25 gm/Sodium Chloride 250 ml @ 167 mls/hr Q24H IV Last administered on 10/13/16 22:06; Start 10/13/16 at 22:00; Stop 10/14/16 at 13:49 ; Status DC Vancomycin HCl 1 each 1X ONCE MC ; Start 10/14/16 at 21:30; Stop 10/14/16 at 21 :31; Status Cancel Acetaminophen (Tylenol) 650 mg PRN Q6HRS PRN PO FEVER; Start 10/13/16 at 10:15 Ondansetron HCl (Zofran) 4 mg PRN Q6HRS PRN IV NAUSEA/VOMITING Last administered on 10/14/16 21:08; Start 10/13/16 at 10:15 Morphine Sulfate 2 mg PRN Q2HR PRN IV PAIN Last administered on 10/13/16 16:48 ; Start 10/13/16 at 10:15 Tramadol HCl (Ultram) 50 mg PRN Q6HRS PRN PO PAIN Last administered on 06:17; Start 10/13/16 at 10:15 Hydralazine HCl (Apresoline) 10 mg PRN Q4HRS PRN IVP ELEVATED BP, SEE COMMENTS ; Start 10/13/16 at 10:15 Docusate Sodium (Colace) 100 mg PRN DAILY PRN PO CONSTIPATION; Start 10/13/16 at 10:15 Allopurinol (Zyloprim) 100 mg DAILY PO Last administered on 10/16/16 09:17; Start 10/13/16 at 12:00 Aspirin (Ecotrin) 81 mg DAILY PO Last administered on 10/16/16 09:17; Start at 12:00 Citalopram Hydrobromide (CeleXA) 10 mg DAILY PO Last administered on 10/16/16 09:17; Start 10/13/16 at 12:00 Furosemide (Lasix) 40 mg DAILY PO Last administered on 10/15/16 08:04; Start 10/13/16 at 12:00; Stop 10/16/16 at 09:25; Status DC Levothyroxine Sodium (Synthroid) 75 mcg DAILY07 PO Last administered on 07:05; Start 10/13/16 at 15:30 Pantoprazole Sodium (Protonix) 40 mg DAILYAC PO Last administered on 10/16/16 07:05; Start 10/13/16 at 11:30 Simvastatin (Zocor) 80 mg QHS PO Last administered on 10/15/16 20:07; Start at 21:00 Enoxaparin Sodium (Lovenox 40mg Syringe) 40 mg Q24H SQ ; Start 10/13/16 at 13:15 ; Stop 10/13/16 at 13:15; Status DC Enoxaparin Sodium (Lovenox 30mg Syringe) 30 mg Q24H SQ Last administered on 13:38; Start 10/13/16 at 14:00 Meropenem 500 mg/ Sodium Chloride 50 ml @ 100 mls/hr Q6HRS IV Last administered on 10/16/16 05:54; Start 10/13/16 at 16:00 Acetaminophen/ Hydrocodone Bitart (Lortab 5/325) 1 tab PRN Q4HRS PRN PO MODERATE TO SEVERE PAIN Last administered on 10/15/16 15:11; Start 10/14/16 at 10:45 Methylprednisolone Acetate (DEPO-Medrol 40MG VIAL) 40 mg 1X ONCE IM ; Start at 15:45; Stop 10/14/16 at 15:49; Status DC Bupivacaine HCl (Sensorcaine-Mpf 0.25%) 10 ml 1X ONCE IJ ; Start 10/14/16 at 15 :45; Stop 10/14/16 at 15:50; Status DC Diclofenac Sodium (Voltaren) 1 janet BID TP Last administered on 10/16/16 09:18 ; Start 10/14/16 at 21:00 Acetaminophen/ Butalbital/ Caffeine (Fioricet) 2 tab PRN Q6HRS PRN PO MIGRAINE HEADACHE Last administered on 10/15/16 06:51; Start 10/14/16 at 16:30 Albuterol Sulfate (Ventolin Neb Soln) 2.5 mg PRN Q4HRS PRN NEB SHORTNESS OF BREATH; Start 10/15/16 at 08:45 Diphenhydramine HCl (Benadryl) 25 mg 1X ONCE PO Last administered on 18:18; Start 10/15/16 at 18:00; Stop 10/15/16 at 18:10; Status DC Zinc Acetate/ Diphenhydramine (Benadryl Topical) 1 janet PRN Q4HRS PRN TP ITCHING ; Start 10/15/16 at 18:00 Active Scripts Active Reported Celexa (Citalopram Hydrobromide) 10 Mg Tablet 10 Mg PO DAILY Allopurinol 100 Mg Tablet 100 Mg PO DAILY Pantoprazole Sodium 40 Mg Tablet. 40 Mg PO DAILY Aspir-Low (Aspirin) 81 Mg Tablet. 1 Tab PO DAILY Levothyroxine Sodium 75 Mcg Tablet 1 Tab PO DAILY Simvastatin 80 Mg Tablet 1 Tab PO QHS Furosemide 40 Mg Tablet 1 Tab PO DAILY Vitals/I & O Vital Sign - Last 24 Hours 10/15/16 10/15/16 10/15/16 10/15/16 11:24 14:57 16:11 19:00 Temp 97.7 99.0 97.7 99.0 Pulse 87 75 Resp 20 18 B/P (MAP) 112/56 (74) 104/59 (74) Pulse Ox 90 92 92 92 O2 Delivery Room Air Room Air Room Air Room Air 10/15/16 10/15/16 10/16/16 10/16/16 20:00 23:03 03:00 07:00 Temp 97.7 97.2 97.9 97.7 97.2 97.9 Pulse 75 72 63 Resp 18 18 20 B/P (MAP) 114/60 (78) 140/73 (95) 138/71 (93) Pulse Ox 90 90 98 O2 Delivery Room Air Room Air Room Air Room Air 10/16/16 07:52 O2 Delivery Room Air Intake and Output 10/15/16 10/15/16 10/16/16 14:59 22:59 06:59 Intake Total 500 ml 900 ml 1000 ml Balance 500 ml 900 ml 1000 ml ISAURA ABBOTT MD October 16, 2016 11:02
[2016-10-16] MEDS: ENOXAPARIN 30 MG/0.3 ML SYRINGE. SQ SCH (13:47)
[2016-10-16 15:00] VITALS: BP 128/79
[2016-10-16 19:00] VITALS: BP 125/72
[2016-10-16] MEDS: SIMVASTATIN 40 MG TABLET. PO SCH (20:00)
[2016-10-16] MEDS: HYDROcodone/APAP 5/325MG 1 TAB TABLET PO PRN (22:30)
[2016-10-16 23:00] VITALS: BP 142/73
[2016-10-17 03:00] VITALS: BP 154/75
[2016-10-17 04:28] LABS: BASO % 0 % (0-3); EOS % 9 % (0-3); HEMATOCRIT 32.4 % (36.0-47.0); HEMOGLOBIN 10.7 g/dL (12.0-15.5); LYMPH # 1.1 x10^3/uL (1.0-4.8); LYMPH % 11 % (24-48); MEAN CORPUSCULAR HEMOGLOBIN 31 pg (25-35); MEAN CORPUSCULAR HGB CONC 33 g/dL (31-37); MEAN CORPUSCULAR VOLUME 92 fL (79-100); MONO % 11 % (0-9); NEUT % 69 % (31-73); PLATELET COUNT 210 x10^3/uL (140-400); RED BLOOD COUNT 3.51 x10^6/uL (3.50-5.40); RED CELL DISTRIBUTION WIDTH 15.1 % (11.5-14.5); WHITE BLOOD COUNT 9.4 x10^3/uL (4.0-11.0)
[2016-10-17 04:49] LABS: CALCIUM 8.5 mg/dL (8.5-10.1); CREATININE 1.3 mg/dL (0.6-1.0); POTASSIUM 4.5 mmol/L (3.5-5.1)
[2016-10-17] MEDS: MEROPENEM 500 MG in IV NORMAL SALINE 50ML 50 ML IV SCH (05:27)
[2016-10-17 07:00] VITALS: BP 150/72
[2016-10-17] MEDS: PANTOPRAZOLE 40 MG TABLET.DR. PO SCH (08:00)
[2016-10-17] MEDS: LEVOTHYROXINE 75 MCG TABLET PO SCH (08:00)
--- NOTE | 2016-10-17 08:41 | PDOC ---
Infectious Disease Note Subjective Subjective States up all night and has a little dry cough Feels legs are a little swollen and wants afua Received a shot of steroids Improved PANG and joint ache ROS ROS GEN: Denies fevers, chills, sweats HEENT: Denies blurred vision, sore throat CV: Denies chest pain RESP: Denies shortness of air, cough GI: Denies n/v/d NEURO: Denies confusion, dizziness MSK: Denies weakness, joint pain/swelling Vital Sign Vital Signs Vital Signs Date Time Temp Pulse Resp B/P (MAP) Pulse Ox O2 Delivery O2 Flow Rate FiO2 10/17/16 07:00 97.7 64 16 150/72 (98) 92 Room Air 97.7 Physical Exam PHYSICAL EXAM GENERAL: NAD, coop - looks better. In chair NECK: more suppleNo adenopathy. PEERL/ OC/Op - clear aside from some bacterial overgrowth LUNGS: Clear to auscultation. HEART: Normal S1 and S2. ABDOMEN: Obese, bowel sounds are present, soft, nontender. EXTREMITIES: Bilateral lower extremity lymphedema with multiple large cutaneous nodules, greater on the right. No gross redness. No cyanosis. SKIN: Without rash. Warm to touch. NEUROLOGIC: Alert and oriented x 3. Moves all extremities Labs Lab Laboratory Tests Test 10/17/16 03:50 10/17/16 06:53 White Blood Count 9.4 x10^3/uL (4.0-11.0) Red Blood Count 3.51 x10^6/uL (3.50-5.40) Hemoglobin 10.7 g/dL (12.0-15.5) Hematocrit 32.4 % (36.0-47.0) Mean Corpuscular Volume 92 fL (79-100) Mean Corpuscular Hemoglobin 31 pg (25-35) Mean Corpuscular Hemoglobin Concent 33 g/dL (31-37) Red Cell Distribution Width 15.1 % (11.5-14.5) Platelet Count 210 x10^3/uL (140-400) Neutrophils (%) (Auto) 69 % (31-73) Lymphocytes (%) (Auto) 11 % (24-48) Monocytes (%) (Auto) 11 % (0-9) Eosinophils (%) (Auto) 9 % (0-3) Basophils (%) (Auto) 0 % (0-3) Neutrophils # (Auto) 6.5 x10^3uL (1.8-7.7) Lymphocytes # (Auto) 1.1 x10^3/uL (1.0-4.8) Monocytes # (Auto) 1.0 x10^3/uL (0.0-1.1) Eosinophils # (Auto) 0.8 x10^3/uL (0.0-0.7) Basophils # (Auto) 0.0 x10^3/uL (0.0-0.2) Sodium Level 144 mmol/L (136-145) Potassium Level 4.5 mmol/L (3.5-5.1) Chloride Level 108 mmol/L (98-107) Carbon Dioxide Level 25 mmol/L (21-32) Anion Gap 11 (6-14) Blood Urea Nitrogen 46 mg/dL (7-20) Creatinine 1.3 mg/dL (0.6-1.0) Estimated GFR (Cockcroft-Gault) 39.0 Glucose Level 100 mg/dL (70-99) Calcium Level 8.5 mg/dL (8.5-10.1) Glucose (Fingerstick) 105 mg/dL (70-99) Objective Assessment Fever - better Leukocytosis - better Chronic sinusitis on CT Chronic lymphedema lower extremities Neck pain h/o fall. 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 GPC in urine ? colonization h/o right nephrectomy h/o Enterobacter (Sen aminoglycosides, carbapenems & quinolones). Plan Plan of Care Discont meropenem change to Cefdinir Lasix 20 times one She needs rehab but refuses and I believe she is worried about going home and is coming up with nonspecific complaints to delay her discharge NGTD OCTAVIANO OVALLE MD October 17, 2016 08:41
[2016-10-17] MEDS ORDERED: FUROSEMIDE 20 MG/2 ML VIAL. IVP ONE (08:45)
[2016-10-17] MEDS: CITALOPRAM 10 MG TABLET. PO SCH (08:53)
[2016-10-17] MEDS: CEFPODOXIME PROXETIL 100 MG TABLET. PO SCH ×2 (08:53→20:56)
[2016-10-17] MEDS: traMADol 50 MG TABLET PO PRN (08:53)
[2016-10-17] MEDS: ALLOPURINOL 100 MG TABLET. PO SCH (08:53)
[2016-10-17] MEDS: ASPIRIN ENTERIC COATED 81 MG TABLET.DR. PO SCH (08:53)
--- NOTE | 2016-10-17 09:33 | PDOC ---
PROGRESS NOTES Subjective Subjective She admits of not sleeping well and had dry cough. Objective Objective Vital Signs Date Time Temp Pulse Resp B/P (MAP) Pulse Ox O2 Delivery O2 Flow Rate FiO2 10/17/16 08:53 16 Room Air 10/17/16 07:00 97.7 64 150/72 (98) 92 97.7 Intake and Output 10/17/16 07:00 Intake Total 2210 ml Output Total 1200 ml Balance 1010 ml Intake Oral 2160 ml IV Total 50 ml Output Urine Total 1200 ml # Voids 8 Physical Exam Physical Exam She is resting in bedside chair and seems to be in no acute distress and she would like her left knee injected but not today.She remains independent with her mobility at roller walker level. Assessment Assessment Problems Medical Problems: (1) Cellulitis of lower extremity Status: Acute Plan Plan of [facility] with home health when medically stable. Comment Review of Relevant I have reviewed the following items javan (where applicable) has been applied. Labs Laboratory Tests Test 10/16/16 03:20 10/17/16 03:50 10/17/16 06:53 White Blood Count 9.5 x10^3/uL (4.0-11.0) 9.4 x10^3/uL (4.0-11.0) Red Blood Count 3.51 x10^6/uL (3.50-5.40) 3.51 x10^6/uL (3.50-5.40) Hemoglobin 10.6 g/dL (12.0-15.5) 10.7 g/dL (12.0-15.5) Hematocrit 32.5 % (36.0-47.0) 32.4 % (36.0-47.0) Mean Corpuscular Volume 92 fL (79-100) 92 fL (79-100) Mean Corpuscular Hemoglobin 30 pg (25-35) 31 pg (25-35) Mean Corpuscular Hemoglobin Concent 33 g/dL (31-37) 33 g/dL (31-37) Red Cell Distribution Width 14.5 % (11.5-14.5) 15.1 % (11.5-14.5) Platelet Count 183 x10^3/uL (140-400) 210 x10^3/uL (140-400) Neutrophils (%) (Auto) 82 % (31-73) 69 % (31-73) Lymphocytes (%) (Auto) 6 % (24-48) 11 % (24-48) Monocytes (%) (Auto) 8 % (0-9) 11 % (0-9) Eosinophils (%) (Auto) 4 % (0-3) 9 % (0-3) Basophils (%) (Auto) 0 % (0-3) 0 % (0-3) Neutrophils # (Auto) 7.8 x10^3uL (1.8-7.7) 6.5 x10^3uL (1.8-7.7) Lymphocytes # (Auto) 0.6 x10^3/uL (1.0-4.8) 1.1 x10^3/uL (1.0-4.8) Monocytes # (Auto) 0.8 x10^3/uL (0.0-1.1) 1.0 x10^3/uL (0.0-1.1) Eosinophils # (Auto) 0.4 x10^3/uL (0.0-0.7) 0.8 x10^3/uL (0.0-0.7) Basophils # (Auto) 0.0 x10^3/uL (0.0-0.2) 0.0 x10^3/uL (0.0-0.2) Sodium Level 143 mmol/L (136-145) 144 mmol/L (136-145) Potassium Level 4.2 mmol/L (3.5-5.1) 4.5 mmol/L (3.5-5.1) Chloride Level 108 mmol/L (98-107) 108 mmol/L (98-107) Carbon Dioxide Level 24 mmol/L (21-32) 25 mmol/L (21-32) Anion Gap 11 (6-14) 11 (6-14) Blood Urea Nitrogen 41 mg/dL (7-20) 46 mg/dL (7-20) Creatinine 1.6 mg/dL (0.6-1.0) 1.3 mg/dL (0.6-1.0) Estimated GFR (Cockcroft-Gault) 30.7 39.0 Glucose Level 104 mg/dL (70-99) 100 mg/dL (70-99) Calcium Level 8.6 mg/dL (8.5-10.1) 8.5 mg/dL (8.5-10.1) Glucose (Fingerstick) 105 mg/dL (70-99) Laboratory Tests Test 10/17/16 03:50 10/17/16 06:53 White Blood Count 9.4 x10^3/uL (4.0-11.0) Red Blood Count 3.51 x10^6/uL (3.50-5.40) Hemoglobin 10.7 g/dL (12.0-15.5) Hematocrit 32.4 % (36.0-47.0) Mean Corpuscular Volume 92 fL (79-100) Mean Corpuscular Hemoglobin 31 pg (25-35) Mean Corpuscular Hemoglobin Concent 33 g/dL (31-37) Red Cell Distribution Width 15.1 % (11.5-14.5) Platelet Count 210 x10^3/uL (140-400) Neutrophils (%) (Auto) 69 % (31-73) Lymphocytes (%) (Auto) 11 % (24-48) Monocytes (%) (Auto) 11 % (0-9) Eosinophils (%) (Auto) 9 % (0-3) Basophils (%) (Auto) 0 % (0-3) Neutrophils # (Auto) 6.5 x10^3uL (1.8-7.7) Lymphocytes # (Auto) 1.1 x10^3/uL (1.0-4.8) Monocytes # (Auto) 1.0 x10^3/uL (0.0-1.1) Eosinophils # (Auto) 0.8 x10^3/uL (0.0-0.7) Basophils # (Auto) 0.0 x10^3/uL (0.0-0.2) Sodium Level 144 mmol/L (136-145) Potassium Level 4.5 mmol/L (3.5-5.1) Chloride Level 108 mmol/L (98-107) Carbon Dioxide Level 25 mmol/L (21-32) Anion Gap 11 (6-14) Blood Urea Nitrogen 46 mg/dL (7-20) Creatinine 1.3 mg/dL (0.6-1.0) Estimated GFR (Cockcroft-Gault) 39.0 Glucose Level 100 mg/dL (70-99) Calcium Level 8.5 mg/dL (8.5-10.1) Glucose (Fingerstick) 105 mg/dL (70-99) Microbiology 10/12/16 Blood Culture - Preliminary, Resulted NO GROWTH AFTER 4 DAYS 10/12/16 Urine Culture - Final, Complete 10/12/16 Urine Culture Result 1 (SALTY) - Final, Complete Medications Current Medications Fentanyl Citrate (Fentanyl 2ml Vial) 25 mcg PRN Q15MIN PRN IV PAIN GREATER THAN 3/10 Last administered on 10/13/16 03:52; Start 10/12/16 at 20:45; Stop at 07:55; Status DC Ondansetron HCl (Zofran) 4 mg 1X ONCE IV Last administered on 10/12/16 21:07 ; Start 10/12/16 at 21:00; Stop 10/12/16 at 21:01; Status DC Acetaminophen (Tylenol) 1,000 mg 1X ONCE PO Last administered on 10/12/16 21: 03; Start 10/12/16 at 21:00; Stop 10/12/16 at 21:01; Status DC Sodium Chloride 1,000 ml @ 1,000 mls/hr 1X ONCE IV Last administered on 21:01; Start 10/12/16 at 21:00; Stop 10/12/16 at 21:59; Status DC Cefepime HCl 2 gm/ Sodium Chloride 100 ml @ 200 mls/hr BID IV Last administered on 10/13/16 10:00; Start 10/12/16 at 21:00; Stop 10/13/16 at 14:54 ; Status DC Vancomycin HCl (Vanco Per Pharmacy) 1 each PRN DAILY PRN MC SEE COMMENTS Last administered on 10/13/16 13:45; Start 10/12/16 at 20:45; Stop 10/14/16 at 13:49 ; Status DC Vancomycin HCl 2 gm/Sodium Chloride 500 ml @ 250 mls/hr 1X ONCE IV Last administered on 10/12/16 21:43; Start 10/12/16 at 21:00; Stop 10/12/16 at 22:59 ; Status DC Ondansetron HCl (Zofran) 4 mg PRN Q8HRS PRN IV NAUSEA/VOMITING Last administered on 10/13/16 17:57; Start 10/12/16 at 22:00; Stop 10/13/16 at 21:59 ; Status DC Sodium Chloride 1,000 ml @ 125 mls/hr Q8H IV Last administered on 10/13/16 07 :56; Start 10/12/16 at 22:30; Stop 10/13/16 at 22:29; Status DC Acetaminophen (Tylenol) 650 mg PRN Q4HRS PRN PO FEVER Last administered on 10/13 07:55; Start 10/12/16 at 22:00; Stop 10/13/16 at 11:21; Status DC Insulin Aspart (NovoLOG) 0-5 UNITS TIDWMEALS SQ ; Start 10/13/16 at 08:00; Stop 10/13/16 at 10:55; Status DC Dextrose (Dextrose 50%-Water Syringe) 12.5 gm PRN Q15MIN PRN IV SEE COMMENTS; Start 10/12/16 at 22:00 Vancomycin HCl 1.25 gm/Sodium Chloride 250 ml @ 167 mls/hr Q24H IV Last administered on 10/13/16 22:06; Start 10/13/16 at 22:00; Stop 10/14/16 at 13:49 ; Status DC Vancomycin HCl 1 each 1X ONCE MC ; Start 10/14/16 at 21:30; Stop 10/14/16 at 21 :31; Status Cancel Acetaminophen (Tylenol) 650 mg PRN Q6HRS PRN PO FEVER; Start 10/13/16 at 10:15 Ondansetron HCl (Zofran) 4 mg PRN Q6HRS PRN IV NAUSEA/VOMITING Last administered on 10/14/16 21:08; Start 10/13/16 at 10:15 Morphine Sulfate 2 mg PRN Q2HR PRN IV PAIN Last administered on 10/13/16 16:48 ; Start 10/13/16 at 10:15 Tramadol HCl (Ultram) 50 mg PRN Q6HRS PRN PO PAIN Last administered on 08:53; Start 10/13/16 at 10:15 Hydralazine HCl (Apresoline) 10 mg PRN Q4HRS PRN IVP ELEVATED BP, SEE COMMENTS ; Start 10/13/16 at 10:15 Docusate Sodium (Colace) 100 mg PRN DAILY PRN PO CONSTIPATION; Start 10/13/16 at 10:15 Allopurinol (Zyloprim) 100 mg DAILY PO Last administered on 10/17/16 08:53; Start 10/13/16 at 12:00 Aspirin (Ecotrin) 81 mg DAILY PO Last administered on 10/17/16 08:53; Start at 12:00 Citalopram Hydrobromide (CeleXA) 10 mg DAILY PO Last administered on 10/17/16 08:53; Start 10/13/16 at 12:00 Furosemide (Lasix) 40 mg DAILY PO Last administered on 10/15/16 08:04; Start 10/13/16 at 12:00; Stop 10/16/16 at 09:25; Status DC Levothyroxine Sodium (Synthroid) 75 mcg DAILY07 PO Last administered on 08:00; Start 10/13/16 at 15:30 Pantoprazole Sodium (Protonix) 40 mg DAILYAC PO Last administered on 10/17/16 08:00; Start 10/13/16 at 11:30 Simvastatin (Zocor) 80 mg QHS PO Last administered on 10/16/16 20:00; Start at 21:00 Enoxaparin Sodium (Lovenox 40mg Syringe) 40 mg Q24H SQ ; Start 10/13/16 at 13:15 ; Stop 10/13/16 at 13:15; Status DC Enoxaparin Sodium (Lovenox 30mg Syringe) 30 mg Q24H SQ Last administered on 13:47; Start 10/13/16 at 14:00 Meropenem 500 mg/ Sodium Chloride 50 ml @ 100 mls/hr Q6HRS IV Last administered on 10/17/16 05:27; Start 10/13/16 at 16:00; Stop 10/17/16 at 08:40 ; Status DC Acetaminophen/ Hydrocodone Bitart (Lortab 5/325) 1 tab PRN Q4HRS PRN PO MODERATE TO SEVERE PAIN Last administered on 10/16/16 22:30; Start 10/14/16 at 10:45 Methylprednisolone Acetate (DEPO-Medrol 40MG VIAL) 40 mg 1X ONCE IM ; Start at 15:45; Stop 10/14/16 at 15:49; Status DC Bupivacaine HCl (Sensorcaine-Mpf 0.25%) 10 ml 1X ONCE IJ ; Start 10/14/16 at 15 :45; Stop 10/14/16 at 15:50; Status DC Diclofenac Sodium (Voltaren) 1 janet BID TP Last administered on 10/16/16 20:00 ; Start 10/14/16 at 21:00 Acetaminophen/ Butalbital/ Caffeine (Fioricet) 2 tab PRN Q6HRS PRN PO MIGRAINE HEADACHE Last administered on 10/15/16 06:51; Start 10/14/16 at 16:30 Albuterol Sulfate (Ventolin Neb Soln) 2.5 mg PRN Q4HRS PRN NEB SHORTNESS OF BREATH; Start 10/15/16 at 08:45 Diphenhydramine HCl (Benadryl) 25 mg 1X ONCE PO Last administered on 18:18; Start 10/15/16 at 18:00; Stop 10/15/16 at 18:10; Status DC Zinc Acetate/ Diphenhydramine (Benadryl Topical) 1 janet PRN Q4HRS PRN TP ITCHING ; Start 10/15/16 at 18:00 Cefpodoxime Proxetil (Vantin) 200 mg BID PO Last administered on 10/17/16 08: 53; Start 10/17/16 at 09:00 Furosemide (Lasix) 20 mg 1X ONCE IVP ; Start 10/17/16 at 08:45; Stop 10/17/16 at 08:46; Status DC Furosemide (Lasix) 40 mg DAILY PO ; Start 10/17/16 at 10:00 Active Scripts Active Reported Celexa (Citalopram Hydrobromide) 10 Mg Tablet 10 Mg PO DAILY Allopurinol 100 Mg Tablet 100 Mg PO DAILY Pantoprazole Sodium 40 Mg Tablet. 40 Mg PO DAILY Aspir-Low (Aspirin) 81 Mg Tablet.dr 1 Tab PO DAILY Levothyroxine Sodium 75 Mcg Tablet 1 Tab PO DAILY Simvastatin 80 Mg Tablet 1 Tab PO QHS Furosemide 40 Mg Tablet 1 Tab PO DAILY Vitals/I & O Vital Sign - Last 24 Hours 10/16/16 10/16/16 10/16/16 10/16/16 11:00 15:00 19:00 20:00 Temp 97.2 97.6 97.7 97.2 97.6 97.7 Pulse 67 72 70 Resp 20 22 18 B/P (MAP) 140/70 (93) 128/79 (95) 125/72 (89) Pulse Ox 97 96 93 O2 Delivery Room Air Room Air 10/16/16 10/16/16 10/17/16 10/17/16 22:30 23:00 03:00 07:00 Temp 97.7 97.9 97.7 97.7 97.9 97.7 Pulse 67 63 64 Resp 18 18 16 B/P (MAP) 142/73 (96) 154/75 (101) 150/72 (98) Pulse Ox 93 92 94 92 O2 Delivery Room Air Room Air 10/17/16 08:53 Resp 16 O2 Delivery Room Air Intake and Output 10/16/16 10/16/16 10/17/16 15:00 23:00 07:00 Intake Total 1200 ml 770 ml 240 ml Output Total 600 ml 600 ml Balance 600 ml 170 ml 240 ml ULISES NINO MD October 17, 2016 09:33
[2016-10-17] MEDS: FUROSEMIDE 40 MG TABLET. PO SCH (10:00)
[2016-10-17] MEDS: DICLOFENAC SODIUM 1% TOPICAL GEL 100GM TUBE. TP SCH ×2 (10:13→20:57)
[2016-10-17 11:18] VITALS: BP 103/68
[2016-10-17] MEDS: ALPRAZolam 0.25 MG TABLET PO PRN (12:45)
[2016-10-17 14:47] VITALS: BP 126/66
[2016-10-17] MEDS: ENOXAPARIN 30 MG/0.3 ML SYRINGE. SQ SCH (14:48)
[2016-10-17 19:00] VITALS: BP 114/60
[2016-10-17] MEDS: SIMVASTATIN 40 MG TABLET. PO SCH (20:57)
[2016-10-17 23:22] VITALS: BP 151/74
[2016-10-18 03:28] VITALS: BP 146/73
[2016-10-18 04:56] LABS: BASO % 0 % (0-3); EOS % 13 % (0-3); HEMATOCRIT 33.4 % (36.0-47.0); LYMPH # 1.4 x10^3/uL (1.0-4.8); LYMPH % 19 % (24-48); MEAN CORPUSCULAR HEMOGLOBIN 30 pg (25-35); MEAN CORPUSCULAR HGB CONC 33 g/dL (31-37); MEAN CORPUSCULAR VOLUME 92 fL (79-100); MONO % 12 % (0-9); NEUT % 56 % (31-73); PLATELET COUNT 216 x10^3/uL (140-400); RED BLOOD COUNT 3.64 x10^6/uL (3.50-5.40); RED CELL DISTRIBUTION WIDTH 14.6 % (11.5-14.5); WHITE BLOOD COUNT 7.4 x10^3/uL (4.0-11.0)
[2016-10-18 05:26] LABS: CALCIUM 8.5 mg/dL (8.5-10.1); CREATININE 1.1 mg/dL (0.6-1.0); GFR 47.3; POTASSIUM 3.9 mmol/L (3.5-5.1)
[2016-10-18] MEDS: LEVOTHYROXINE 75 MCG TABLET PO SCH (05:44)
[2016-10-18 07:00] VITALS: BP 145/70
[2016-10-18] MEDS: CEFPODOXIME PROXETIL 100 MG TABLET. PO SCH (08:44)
[2016-10-18] MEDS: ALLOPURINOL 100 MG TABLET. PO SCH (08:45)
[2016-10-18] MEDS: CITALOPRAM 10 MG TABLET. PO SCH (08:45)
[2016-10-18] MEDS: ASPIRIN ENTERIC COATED 81 MG TABLET.DR. PO SCH (08:45)
[2016-10-18] MEDS: PANTOPRAZOLE 40 MG TABLET.DR. PO SCH (08:45)
[2016-10-18] MEDS: FUROSEMIDE 40 MG TABLET. PO SCH (08:45)
[2016-10-18] MEDS: ALPRAZolam 0.25 MG TABLET PO PRN (08:45)
[2016-10-18] MEDS: DICLOFENAC SODIUM 1% TOPICAL GEL 100GM TUBE. TP SCH (08:48)
--- NOTE | 2016-10-18 09:12 | PDOC ---
PROGRESS NOTES Subjective Subjective She feels good. Objective Objective Vital Signs Date Time Temp Pulse Resp B/P (MAP) Pulse Ox O2 Delivery O2 Flow Rate FiO2 10/18/16 08:02 95 Room Air 10/18/16 07:00 98.1 60 17 145/70 (95) 98.1 Intake and Output 10/18/16 07:00 Intake Total 410 ml Balance 410 ml Intake Oral 360 ml IV Total 50 ml # Voids 3 Physical Exam Physical Exam She is alert,cheerful and comfortable,supine in bed and knees are not bothering her too much with diclofenac gel. Assessment Assessment Problems Medical Problems: (1) Cellulitis of lower extremity Status: Acute Plan Plan of [facility] today if she can get around with oral antibiotics and she does not need physical and occupational therapy follow up. Comment Review of Relevant I have reviewed the following items javan (where applicable) has been applied. Labs Laboratory Tests Test 10/17/16 03:50 10/17/16 06:53 10/18/16 03:50 White Blood Count 9.4 x10^3/uL (4.0-11.0) 7.4 x10^3/uL (4.0-11.0) Red Blood Count 3.51 x10^6/uL (3.50-5.40) 3.64 x10^6/uL (3.50-5.40) Hemoglobin 10.7 g/dL (12.0-15.5) 11.0 g/dL (12.0-15.5) Hematocrit 32.4 % (36.0-47.0) 33.4 % (36.0-47.0) Mean Corpuscular Volume 92 fL (79-100) 92 fL (79-100) Mean Corpuscular Hemoglobin 31 pg (25-35) 30 pg (25-35) Mean Corpuscular Hemoglobin Concent 33 g/dL (31-37) 33 g/dL (31-37) Red Cell Distribution Width 15.1 % (11.5-14.5) 14.6 % (11.5-14.5) Platelet Count 210 x10^3/uL (140-400) 216 x10^3/uL (140-400) Neutrophils (%) (Auto) 69 % (31-73) 56 % (31-73) Lymphocytes (%) (Auto) 11 % (24-48) 19 % (24-48) Monocytes (%) (Auto) 11 % (0-9) 12 % (0-9) Eosinophils (%) (Auto) 9 % (0-3) 13 % (0-3) Basophils (%) (Auto) 0 % (0-3) 0 % (0-3) Neutrophils # (Auto) 6.5 x10^3uL (1.8-7.7) 4.1 x10^3uL (1.8-7.7) Lymphocytes # (Auto) 1.1 x10^3/uL (1.0-4.8) 1.4 x10^3/uL (1.0-4.8) Monocytes # (Auto) 1.0 x10^3/uL (0.0-1.1) 0.9 x10^3/uL (0.0-1.1) Eosinophils # (Auto) 0.8 x10^3/uL (0.0-0.7) 0.9 x10^3/uL (0.0-0.7) Basophils # (Auto) 0.0 x10^3/uL (0.0-0.2) 0.0 x10^3/uL (0.0-0.2) Sodium Level 144 mmol/L (136-145) 145 mmol/L (136-145) Potassium Level 4.5 mmol/L (3.5-5.1) 3.9 mmol/L (3.5-5.1) Chloride Level 108 mmol/L (98-107) 107 mmol/L (98-107) Carbon Dioxide Level 25 mmol/L (21-32) 29 mmol/L (21-32) Anion Gap 11 (6-14) 9 (6-14) Blood Urea Nitrogen 46 mg/dL (7-20) 37 mg/dL (7-20) Creatinine 1.3 mg/dL (0.6-1.0) 1.1 mg/dL (0.6-1.0) Estimated GFR (Cockcroft-Gault) 39.0 47.3 Glucose Level 100 mg/dL (70-99) 92 mg/dL (70-99) Calcium Level 8.5 mg/dL (8.5-10.1) 8.5 mg/dL (8.5-10.1) Glucose (Fingerstick) 105 mg/dL (70-99) Laboratory Tests Test 10/18/16 03:50 White Blood Count 7.4 x10^3/uL (4.0-11.0) Red Blood Count 3.64 x10^6/uL (3.50-5.40) Hemoglobin 11.0 g/dL (12.0-15.5) Hematocrit 33.4 % (36.0-47.0) Mean Corpuscular Volume 92 fL (79-100) Mean Corpuscular Hemoglobin 30 pg (25-35) Mean Corpuscular Hemoglobin Concent 33 g/dL (31-37) Red Cell Distribution Width 14.6 % (11.5-14.5) Platelet Count 216 x10^3/uL (140-400) Neutrophils (%) (Auto) 56 % (31-73) Lymphocytes (%) (Auto) 19 % (24-48) Monocytes (%) (Auto) 12 % (0-9) Eosinophils (%) (Auto) 13 % (0-3) Basophils (%) (Auto) 0 % (0-3) Neutrophils # (Auto) 4.1 x10^3uL (1.8-7.7) Lymphocytes # (Auto) 1.4 x10^3/uL (1.0-4.8) Monocytes # (Auto) 0.9 x10^3/uL (0.0-1.1) Eosinophils # (Auto) 0.9 x10^3/uL (0.0-0.7) Basophils # (Auto) 0.0 x10^3/uL (0.0-0.2) Sodium Level 145 mmol/L (136-145) Potassium Level 3.9 mmol/L (3.5-5.1) Chloride Level 107 mmol/L (98-107) Carbon Dioxide Level 29 mmol/L (21-32) Anion Gap 9 (6-14) Blood Urea Nitrogen 37 mg/dL (7-20) Creatinine 1.1 mg/dL (0.6-1.0) Estimated GFR (Cockcroft-Gault) 47.3 Glucose Level 92 mg/dL (70-99) Calcium Level 8.5 mg/dL (8.5-10.1) Microbiology 10/12/16 Blood Culture - Final, Complete NO GROWTH AFTER 5 DAYS 10/12/16 Urine Culture - Final, Complete 10/12/16 Urine Culture Result 1 (SALTY) - Final, Complete Medications Current Medications Fentanyl Citrate (Fentanyl 2ml Vial) 25 mcg PRN Q15MIN PRN IV PAIN GREATER THAN 3/10 Last administered on 10/13/16 03:52; Start 10/12/16 at 20:45; Stop at 07:55; Status DC Ondansetron HCl (Zofran) 4 mg 1X ONCE IV Last administered on 10/12/16 21:07 ; Start 10/12/16 at 21:00; Stop 10/12/16 at 21:01; Status DC Acetaminophen (Tylenol) 1,000 mg 1X ONCE PO Last administered on 10/12/16 21: 03; Start 10/12/16 at 21:00; Stop 10/12/16 at 21:01; Status DC Sodium Chloride 1,000 ml @ 1,000 mls/hr 1X ONCE IV Last administered on 21:01; Start 10/12/16 at 21:00; Stop 10/12/16 at 21:59; Status DC Cefepime HCl 2 gm/ Sodium Chloride 100 ml @ 200 mls/hr BID IV Last administered on 10/13/16 10:00; Start 10/12/16 at 21:00; Stop 10/13/16 at 14:54 ; Status DC Vancomycin HCl (Vanco Per Pharmacy) 1 each PRN DAILY PRN MC SEE COMMENTS Last administered on 10/13/16 13:45; Start 10/12/16 at 20:45; Stop 10/14/16 at 13:49 ; Status DC Vancomycin HCl 2 gm/Sodium Chloride 500 ml @ 250 mls/hr 1X ONCE IV Last administered on 10/12/16 21:43; Start 10/12/16 at 21:00; Stop 10/12/16 at 22:59 ; Status DC Ondansetron HCl (Zofran) 4 mg PRN Q8HRS PRN IV NAUSEA/VOMITING Last administered on 10/13/16 17:57; Start 10/12/16 at 22:00; Stop 10/13/16 at 21:59 ; Status DC Sodium Chloride 1,000 ml @ 125 mls/hr Q8H IV Last administered on 10/13/16 07 :56; Start 10/12/16 at 22:30; Stop 10/13/16 at 22:29; Status DC Acetaminophen (Tylenol) 650 mg PRN Q4HRS PRN PO FEVER Last administered on 10/13 07:55; Start 10/12/16 at 22:00; Stop 10/13/16 at 11:21; Status DC Insulin Aspart (NovoLOG) 0-5 UNITS TIDWMEALS SQ ; Start 10/13/16 at 08:00; Stop 10/13/16 at 10:55; Status DC Dextrose (Dextrose 50%-Water Syringe) 12.5 gm PRN Q15MIN PRN IV SEE COMMENTS; Start 10/12/16 at 22:00 Vancomycin HCl 1.25 gm/Sodium Chloride 250 ml @ 167 mls/hr Q24H IV Last administered on 10/13/16 22:06; Start 10/13/16 at 22:00; Stop 10/14/16 at 13:49 ; Status DC Vancomycin HCl 1 each 1X ONCE MC ; Start 10/14/16 at 21:30; Stop 10/14/16 at 21 :31; Status Cancel Acetaminophen (Tylenol) 650 mg PRN Q6HRS PRN PO FEVER; Start 10/13/16 at 10:15 Ondansetron HCl (Zofran) 4 mg PRN Q6HRS PRN IV NAUSEA/VOMITING Last administered on 10/14/16 21:08; Start 10/13/16 at 10:15 Morphine Sulfate 2 mg PRN Q2HR PRN IV PAIN Last administered on 10/13/16 16:48 ; Start 10/13/16 at 10:15 Tramadol HCl (Ultram) 50 mg PRN Q6HRS PRN PO PAIN Last administered on 08:53; Start 10/13/16 at 10:15 Hydralazine HCl (Apresoline) 10 mg PRN Q4HRS PRN IVP ELEVATED BP, SEE COMMENTS ; Start 10/13/16 at 10:15 Docusate Sodium (Colace) 100 mg PRN DAILY PRN PO CONSTIPATION; Start 10/13/16 at 10:15 Allopurinol (Zyloprim) 100 mg DAILY PO Last administered on 10/18/16 08:45; Start 10/13/16 at 12:00 Aspirin (Ecotrin) 81 mg DAILY PO Last administered on 10/18/16 08:45; Start at 12:00 Citalopram Hydrobromide (CeleXA) 10 mg DAILY PO Last administered on 10/18/16 08:45; Start 10/13/16 at 12:00 Furosemide (Lasix) 40 mg DAILY PO Last administered on 10/15/16 08:04; Start 10/13/16 at 12:00; Stop 10/16/16 at 09:25; Status DC Levothyroxine Sodium (Synthroid) 75 mcg DAILY07 PO Last administered on 05:44; Start 10/13/16 at 15:30 Pantoprazole Sodium (Protonix) 40 mg DAILYAC PO Last administered on 10/18/16 08:45; Start 10/13/16 at 11:30 Simvastatin (Zocor) 80 mg QHS PO Last administered on 10/17/16 20:57; Start at 21:00 Enoxaparin Sodium (Lovenox 40mg Syringe) 40 mg Q24H SQ ; Start 10/13/16 at 13:15 ; Stop 10/13/16 at 13:15; Status DC Enoxaparin Sodium (Lovenox 30mg Syringe) 30 mg Q24H SQ Last administered on 14:48; Start 10/13/16 at 14:00 Meropenem 500 mg/ Sodium Chloride 50 ml @ 100 mls/hr Q6HRS IV Last administered on 10/17/16 05:27; Start 10/13/16 at 16:00; Stop 10/17/16 at 08:40 ; Status DC Acetaminophen/ Hydrocodone Bitart (Lortab 5/325) 1 tab PRN Q4HRS PRN PO MODERATE TO SEVERE PAIN Last administered on 10/16/16 22:30; Start 10/14/16 at 10:45 Methylprednisolone Acetate (DEPO-Medrol 40MG VIAL) 40 mg 1X ONCE IM ; Start at 15:45; Stop 10/14/16 at 15:49; Status DC Bupivacaine HCl (Sensorcaine-Mpf 0.25%) 10 ml 1X ONCE IJ ; Start 10/14/16 at 15 :45; Stop 10/14/16 at 15:50; Status DC Diclofenac Sodium (Voltaren) 1 janet BID TP Last administered on 10/18/16 08:48; Start 10/14/16 at 21:00 Acetaminophen/ Butalbital/ Caffeine (Fioricet) 2 tab PRN Q6HRS PRN PO MIGRAINE HEADACHE Last administered on 10/15/16 06:51; Start 10/14/16 at 16:30 Albuterol Sulfate (Ventolin Neb Soln) 2.5 mg PRN Q4HRS PRN NEB SHORTNESS OF BREATH; Start 10/15/16 at 08:45 Diphenhydramine HCl (Benadryl) 25 mg 1X ONCE PO Last administered on 18:18; Start 10/15/16 at 18:00; Stop 10/15/16 at 18:10; Status DC Zinc Acetate/ Diphenhydramine (Benadryl Topical) 1 janet PRN Q4HRS PRN TP ITCHING ; Start 10/15/16 at 18:00 Cefpodoxime Proxetil (Vantin) 200 mg BID PO Last administered on 10/18/16 08:44 ; Start 10/17/16 at 09:00 Furosemide (Lasix) 20 mg 1X ONCE IVP Last administered on 10/17/16 10:13; Start 10/17/16 at 08:45; Stop 10/17/16 at 08:46; Status DC Furosemide (Lasix) 40 mg DAILY PO Last administered on 10/18/16 08:45; Start at 10:00 Alprazolam (Xanax) 0.25 mg PRN BID PRN PO ANXIETY / AGITATION Last administered on 10/18/16 08:45; Start 10/17/16 at 10:30 Active Scripts Active Reported Celexa (Citalopram Hydrobromide) 10 Mg Tablet 10 Mg PO DAILY Allopurinol 100 Mg Tablet 100 Mg PO DAILY Pantoprazole Sodium 40 Mg Tablet. 40 Mg PO DAILY Aspir-Low (Aspirin) 81 Mg Tablet. 1 Tab PO DAILY Levothyroxine Sodium 75 Mcg Tablet 1 Tab PO DAILY Simvastatin 80 Mg Tablet 1 Tab PO QHS Furosemide 40 Mg Tablet 1 Tab PO DAILY Vitals/I & O Vital Sign - Last 24 Hours 510/17/16 10/17/16 10/17/16 09:53 11:18 14:47 19:00 Temp 98.0 98.5 98.3 98.0 98.5 98.3 Pulse 61 71 60 Resp 17 16 18 B/P (MAP) 103/68 (80) 126/66 (86) 114/60 (78) Pulse Ox 94 94 93 O2 Delivery Room Air Room Air Room Air Room Air 10/17/16 10/17/16 10/18/16 10/18/16 20:00 23:22 03:28 07:00 Temp 97.9 97.6 98.1 97.9 97.6 98.1 Pulse 60 62 60 Resp 18 17 B/P (MAP) 151/74 (99) 146/73 (97) 145/70 (95) Pulse Ox 92 94 95 O2 Delivery Room Air Room Air Room Air Room Air 10/18/16 10/18/16 08:00 08:02 Pulse Ox 95 O2 Delivery Room Air Room Air Intake and Output 10/17/16 10/17/16 10/18/16 15:00 23:00 07:00 Intake Total 50 ml 360 ml Balance 50 ml 360 ml ULISES NINO MD Oct 18, 2016 09:12
--- NOTE | 2016-10-18 10:16 | PDOC ---
Infectious Disease Note Subjective Subjective Doing well and ready to go home Received a shot of steroids Improved PANG and joint ache ROS ROS GEN: Denies fevers, chills, sweats HEENT: Denies blurred vision, sore throat CV: Denies chest pain RESP: Denies shortness of air, cough GI: Denies n/v/d NEURO: Denies confusion, dizziness MSK: Denies weakness, joint pain/swelling Vital Sign Vital Signs Vital Signs Date Time Temp Pulse Resp B/P (MAP) Pulse Ox O2 Delivery O2 Flow Rate FiO2 10/18/16 08:02 95 Room Air 10/18/16 07:00 98.1 60 17 145/70 (95) 98.1 Physical Exam PHYSICAL EXAM GENERAL: NAD, coop - looks better. In bed NECK: more supple, No adenopathy. PEERL/ OC/Op - clear LUNGS: Clear to auscultation. HEART: Normal S1 and S2. ABDOMEN: Obese, bowel sounds are present, soft, nontender. EXTREMITIES: Bilateral lower extremity lymphedema with multiple large cutaneous nodules, greater on the right. Improved. No gross redness. No cyanosis. SKIN: Without rash. Warm to touch. NEUROLOGIC: Alert and oriented x 3. Moves all extremities Labs Lab Laboratory Tests Test 10/18/16 03:50 White Blood Count 7.4 x10^3/uL (4.0-11.0) Red Blood Count 3.64 x10^6/uL (3.50-5.40) Hemoglobin 11.0 g/dL (12.0-15.5) Hematocrit 33.4 % (36.0-47.0) Mean Corpuscular Volume 92 fL (79-100) Mean Corpuscular Hemoglobin 30 pg (25-35) Mean Corpuscular Hemoglobin Concent 33 g/dL (31-37) Red Cell Distribution Width 14.6 % (11.5-14.5) Platelet Count 216 x10^3/uL (140-400) Neutrophils (%) (Auto) 56 % (31-73) Lymphocytes (%) (Auto) 19 % (24-48) Monocytes (%) (Auto) 12 % (0-9) Eosinophils (%) (Auto) 13 % (0-3) Basophils (%) (Auto) 0 % (0-3) Neutrophils # (Auto) 4.1 x10^3uL (1.8-7.7) Lymphocytes # (Auto) 1.4 x10^3/uL (1.0-4.8) Monocytes # (Auto) 0.9 x10^3/uL (0.0-1.1) Eosinophils # (Auto) 0.9 x10^3/uL (0.0-0.7) Basophils # (Auto) 0.0 x10^3/uL (0.0-0.2) Sodium Level 145 mmol/L (136-145) Potassium Level 3.9 mmol/L (3.5-5.1) Chloride Level 107 mmol/L (98-107) Carbon Dioxide Level 29 mmol/L (21-32) Anion Gap 9 (6-14) Blood Urea Nitrogen 37 mg/dL (7-20) Creatinine 1.1 mg/dL (0.6-1.0) Estimated GFR (Cockcroft-Gault) 47.3 Glucose Level 92 mg/dL (70-99) Calcium Level 8.5 mg/dL (8.5-10.1) Objective Assessment Fever - better Leukocytosis - better Chronic sinusitis on CT Chronic lymphedema lower extremities Neck pain h/o fall. 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 GPC in urine ? colonization h/o right nephrectomy h/o Enterobacter (Sen aminoglycosides, carbapenems & quinolones). Plan Plan of longterm on po cefpox for 5 days OCTAVIANO OVALLE MD Oct 18, 2016 10:16
[2016-10-18] MEDS ORDERED: CEFP100T PO (10:35)
[2016-10-18 10:39] VITALS: BP 134/61
--- NOTE | 2016-10-18 12:04 | PDOC3 ---
Discharge Summary [facility] Date of Admission: October 12, 2016 Discharge Date: Oct 18, 2016 Admitting Diagnosis 1. bl leg cellulitis 2. sepsis with 1 3. neck pain post fall, spinal stenosis 4. left facial pain with . chronic sinusitis on CT 5. htn 6. hld 7. GERD 8. ckd3 with h/o nephrectomy 9. h/o cervical Ca 10. bl leg chronic lymphedema 11. morbid obesity Problems: Final Diagnosis CONSULTS ID DR. Upton Brief Hospital Course Patient is a 85 year old woman, history of nephrectomy , cervical cancer, hypertension, type 2 diabetes mellitus, gout, recurrent leg cellulitis, came to ER for bl leg pain and redness for 2 days. Pt has been have recurrent bl leg cellulitis, with chronic lymphedema. She also has unsteady gait, easy fall, and fell 1 month ago with neck pain, but stated wo image. She also c/o left facial pain. denies fever, but T 102 here. No fever, chills, N/V, has cough last night, non productive. pt leg improved with iv meropenum, dc with vantin for another 5ds. cx neg. CT showed cervical DJD, not candidate for sx, got steroid shot, pain improved. pt refused HH. dc home. dc time 35min Physical Exam bl leg chronic lymphedema with nodules, bl leg mild erythma General: Alert, Oriented X3, Cooperative Heart: Regular rate, Normal S1, Normal S2 Lungs: Clear Abdomen: Normal bowel sounds, Soft Extremities: No clubbing Problems: Disposition home CONDITION AT DISCHARGE: Improved Diet regular Scheduled Allopurinol (Allopurinol), 100 MG PO DAILY, (Reported) Aspirin (Aspir-Low), 1 TAB PO DAILY, (Reported) Cefpodoxime Proxetil (Cefpodoxime Proxetil), 200 MG PO BID Citalopram Hydrobromide (Celexa), 10 MG PO DAILY, (Reported) Furosemide (Furosemide), 1 TAB PO DAILY, (Reported) Levothyroxine Sodium (Levothyroxine Sodium), 1 TAB PO DAILY, (Reported) Pantoprazole Sodium (Pantoprazole Sodium), 40 MG PO DAILY, (Reported) Simvastatin (Simvastatin), 1 TAB PO QHS, (Reported) Follow Up pcp and derm in 2 weeks ISAURA ABBOTT MD Oct 18, 2016 12:04
== END 2016-10-18 13:29 | disposition home or self-care (01) | DRG 872 ==
LOC: ER 18:51 → 5 SOUTH 21:23
PROVIDERS: ADMIT Internal Medicine; ATTEND Internal Medicine
DX: A41.9 Sepsis, unspecified organism (principal); L03.116 Cellulitis of left lower limb; L03.115 Cellulitis of right lower limb; E11.22 Type 2 diabetes mellitus with diabetic chronic kidney disease; E03.9 Hypothyroidism, unspecified; E11.42 Type 2 diabetes mellitus with diabetic polyneuropathy; E66.01 Morbid (severe) obesity due to excess calories; E78.00 Pure hypercholesterolemia, unspecified; E78.5 Hyperlipidemia, unspecified; I12.9 Hypertensive chronic kidney disease with stage 1 through stage 4 chronic kidney disease, or unspecified chronic kidney disease; K21.9 Gastro-esophageal reflux disease without esophagitis; J32.9 Chronic sinusitis, unspecified; M47.812 Spondylosis without myelopathy or radiculopathy, cervical region; M17.0 Bilateral primary osteoarthritis of knee; M48.00 Spinal stenosis, site unspecified; I89.0 Lymphedema, not elsewhere classified; E11.51 Type 2 diabetes mellitus with diabetic peripheral angiopathy without gangrene; M10.00 Idiopathic gout, unspecified site; N18.3 Chronic kidney disease, stage 3 (moderate); Z82.49 Family history of ischemic heart disease and other diseases of the circulatory system; Z85.41 Personal history of malignant neoplasm of cervix uteri; Z90.49 Acquired absence of other specified parts of digestive tract; Z90.5 Acquired absence of kidney; Z68.38 Body mass index [BMI] 38.0-38.9, adult; Z90.710 Acquired absence of both cervix and uterus; Z90.721 Acquired absence of ovaries, unilateral; Z79.82 Long term (current) use of aspirin
CPT/HCPCS: 36415; 70450; 70486; 71010; 72125; 72141; 80048; 80053; 81001; 82962; 83605; 85007; 85027; 87040; 87086; 93005; 93970; 94250; 94640; 96361; 96365; 96375; J0692; J1650; J1815; J2185; J2270; J2405; J3010; J3370; J7030; J7040; J7050; Q0163; 97530; 97535; 99285-25

== ENCOUNTER 2016-10-27 14:21 | Emergency (ER) | payer MEDICARE ==
[~2016-10-27] VITALS: Ht 152.4 cm; Wt 83.9 kg
[~2016-10-27 14:21] MED LIST changes: +ALLO100T PO; +CEFP100T PO; +CITA10TA8 PO; +PANT40TA5 PO
[2016-10-27] MEDS ORDERED: PROMETHAZINE 12.5 MG in IV NORMAL SALINE 50ML 50 ML IV PRN (14:30)
[2016-10-27] MEDS ORDERED: IV NORMAL SALINE 1000ML BAG 1,000 ML IV ONE (14:30)
[2016-10-27 15:22] LABS: BASO % 0 % (0-3); EOS % 1 % (0-3); HEMOGLOBIN 12.5 g/dL (12.0-15.5); LYMPH # 0.5 x10^3/uL (1.0-4.8); LYMPH % 5 % (24-48); MEAN CORPUSCULAR HEMOGLOBIN 30 pg (25-35); MEAN CORPUSCULAR HGB CONC 33 g/dL (31-37); MEAN CORPUSCULAR VOLUME 92 fL (79-100); MONO % 5 % (0-9); NEUT % 89 % (31-73); PLATELET COUNT 264 x10^3/uL (140-400); RED BLOOD COUNT 4.15 x10^6/uL (3.50-5.40); RED CELL DISTRIBUTION WIDTH 14.7 % (11.5-14.5); WHITE BLOOD COUNT 9.6 x10^3/uL (4.0-11.0)
--- NOTE | 2016-10-27 15:31 | ED.ADGEN ---
Past Medical History Past Medical History: Cancer, GERD, High Cholesterol, Hypothyroid, Renal Disease, Vascular Disease, Other Additional Past Medical Histor: EDEMA BLE, CERVIX CA,GOUT, CELLULITIS Past Surgical History: Appendectomy, Cancer Surgery, Hysterectomy, Oophorectomy , Other Additional Past Surgical Histo: RIGHT NEPHRECTOMY Alcohol Use: None Drug Use: None Adult General Chief Complaint Chief Complaint: NAUSEA/VOMITING/DIARRHA HPI HPI Patient is a 85 year old presents with generalized malaise, fatigue, nausea starting last night with multiple EPISODES of emesis earlier today. Patient attributes symptoms to [place] that she had at local restaurant. Patient denies fever chills, sweats, abdominal pain or diarrhea. No bloody stools or melena. She arrives by EMS, Zofran given prior to ED arrival with nausea. Recent hospital admission for concussion and cellulitis. Patient not currently on antibiotics. Review of Systems Review of Systems Review symptoms as per history of present illness. All other review symptoms. Current Medications Current Medications Current Medications Medications (Trade) Dose Ordered Sig/Dimple Start Time Stop Time Status Last Admin Dose Admin Acetaminophen (Tylenol) 1,000 mg 1X ONCE 10/27/16 16:45 10/27/16 16:46 UNV Promethazine HCl 12.5 mg/Sodium Chloride 50.5 ml @ 151.5 mls/ hr PRN Q6HRS PRN 10/27/16 14:30 Sodium Chloride 1,000 ml @ 1,000 mls/hr 1X ONCE 10/27/16 14:30 10/27/16 15:29 DC 10/27/16 15:29 1,000 MLS/HR Allergies Allergies Allergies Coded Allergies Type Severity Reaction Last Updated Verified No Known Drug Allergies 03/02/14 No Physical Exam Physical Exam Constitutional: Well developed, well nourished, no acute distress, non-toxic appearance. HENT: Normocephalic, atraumatic, bilateral external ears normal, oropharynx moist, no oral exudates, nose normal. Eyes: PERRLA, EOMI, conjunctiva normal. Neck: Normal range of motion, no tenderness, supple, no stridor. Cardiovascular:Heart rate regular rhythm, no murmur. Lungs & Thorax: Bilateral breath sounds clear to auscultation [] Abdomen: Bowel sounds normal, soft, no tenderness, no masses, no pulsatile masses. [] Skin: Warm, dry, no erythema, no rash. [] Back: No tenderness, no CVA tenderness. [] Extremities: No tenderness, no cyanosis, no clubbing, ROM intact, no edema. [] Neurologic: Alert and oriented X 3, normal motor function, normal sensory function, no focal deficits noted. [] Psychologic: Affect normal, judgement normal, mood normal. [] Current Patient Data Vital Signs Vital Signs Date Time Temp Pulse Resp B/P (MAP) Pulse Ox O2 Delivery O2 Flow Rate FiO2 10/27/16 14:21 98.5 84 16 137/64 (88) 93 Room Air 98.5 Lab Values Laboratory Tests Test 10/27/16 15:15 10/27/16 16:00 White Blood Count 9.6 x10^3/uL (4.0-11.0) Red Blood Count 4.15 x10^6/uL (3.50-5.40) Hemoglobin 12.5 g/dL (12.0-15.5) Hematocrit 38.0 % (36.0-47.0) Mean Corpuscular Volume 92 fL (79-100) Mean Corpuscular Hemoglobin 30 pg (25-35) Mean Corpuscular Hemoglobin Concent 33 g/dL (31-37) Red Cell Distribution Width 14.7 % (11.5-14.5) H Platelet Count 264 x10^3/uL (140-400) Neutrophils (%) (Auto) 89 % (31-73) H Lymphocytes (%) (Auto) 5 % (24-48) L Monocytes (%) (Auto) 5 % (0-9) Eosinophils (%) (Auto) 1 % (0-3) Basophils (%) (Auto) 0 % (0-3) Neutrophils # (Auto) 8.5 x10^3uL (1.8-7.7) H Lymphocytes # (Auto) 0.5 x10^3/uL (1.0-4.8) L Monocytes # (Auto) 0.4 x10^3/uL (0.0-1.1) Eosinophils # (Auto) 0.1 x10^3/uL (0.0-0.7) Basophils # (Auto) 0.0 x10^3/uL (0.0-0.2) Segmented Neutrophils % 93 % (35-66) H Lymphocytes % 4 % (24-48) L Monocytes % 3 % (0-10) Platelet Estimate Adequate (ADEQUATE) Sodium Level 144 mmol/L (136-145) Potassium Level 3.4 mmol/L (3.5-5.1) L Chloride Level 107 mmol/L (98-107) Carbon Dioxide Level 29 mmol/L (21-32) Anion Gap 8 (6-14) Blood Urea Nitrogen 22 mg/dL (7-20) H Creatinine 1.1 mg/dL (0.6-1.0) H Estimated GFR (Cockcroft-Gault) 47.3 BUN/Creatinine Ratio 20 (6-20) Glucose Level 110 mg/dL (70-99) H Calcium Level 8.9 mg/dL (8.5-10.1) Total Bilirubin 0.4 mg/dL (0.2-1.0) Aspartate Amino Transferase (AST) 25 U/L (15-37) Alanine Aminotransferase (ALT) 23 U/L (14-59) Alkaline Phosphatase 87 U/L (46-116) Troponin I Quantitative 0.028 ng/mL (0.000-0.055) Total Protein 7.7 g/dL (6.4-8.2) Albumin 3.6 g/dL (3.4-5.0) Albumin/Globulin Ratio 0.9 (1.0-1.7) L Lipase 145 U/L (73-393) Urine Collection Type Unknown Urine Color Yellow Urine Clarity Cloudy Urine pH 6.5 Urine Specific [place] 1.015 Urine Protein 30 mg/dL (NEG-TRACE) Urine Glucose (UA) Negative mg/dL (NEG) Urine Ketones (Stick) Negative mg/dL (NEG) Urine Blood Small (NEG) Urine Nitrite Positive (NEG) Urine Bilirubin Negative (NEG) Urine Urobilinogen Dipstick 0.2 mg/dL (0.2 mg/dL) Urine Leukocyte Esterase Large (NEG) Urine RBC 6-10 /HPF (0-2) Urine WBC Tntc /HPF (0-4) Urine Squamous Epithelial Cells Mod /LPF Urine Bacteria Many /HPF (0-FEW) Laboratory Tests 10/27/16 15:15 Laboratory Tests 10/27/16 15:15 EKG EKG [EKG: Normal sinus rhythm, rate 75, no acute ST-T wave changes, QTC 430s.] Radiology/Procedures Radiology/Procedures [] Course & Med Decision Making Course & Med Decision Making Pertinent Labs and Imaging studies reviewed. (See chart for details) [Nausea resolved prior to ED arrival. Patient feels better with treatment as ready to go home. We'll continue supportive treatment with PCP follow-up. Return cautions reviewed.] Dragon Disclaimer Dragon Disclaimer This electronic medical record was generated, in whole or in part, using a voice recognition dictation system. MYRNA MARTINO DO Oct 27, 2016 15:31
[2016-10-27 15:37] LABS: CALCIUM 8.9 mg/dL (8.5-10.1); CREATININE 1.1 mg/dL (0.6-1.0); GFR 47.3; POTASSIUM 3.4 mmol/L (3.5-5.1)
[2016-10-27 15:42] LABS: ALBUMIN 3.6 g/dL (3.4-5.0); ALBUMIN/GLOBULIN RATIO 0.9 (1.0-1.7); TOTAL BILIRUBIN 0.4 mg/dL (0.2-1.0); TOTAL PROTEIN 7.7 g/dL (6.4-8.2)
[2016-10-27 16:14] LABS: BILIRUBIN,URINE NEGATIVE (NEG); GLUCOSE,URINE NEGATIVE (NEG); NITRITE,URINE POSITIVE (NEG); PH,URINE 6.5; PROTEIN,URINE 30 mg/dL (NEG-TRACE); UROBILINOGEN,URINE 0.2 mg/dL (0.2 mg/dL)
[2016-10-27 16:22] LABS: BACTERIA,URINE MANY /HPF (0-FEW); SQUAMOUS EPITHELIAL CELL,UR MOD /LPF; WBC,URINE TNTC /HPF (0-4)
[2016-10-27 16:29] LABS: PLT ESTIMATE ADEQUATE (ADEQUATE)
[2016-10-27] MEDS ORDERED: ACETAMINOPHEN 500 MG TABLET PO ONE (16:45)
[2016-10-27 17:13] VITALS: BP 176/85
--- NOTE | 2016-10-28 12:49 | EKG ---
[facility] [address] [place] [address] Test Date: 2016-10-27 Test Time: 14:49:47 Pat Name: NICKIE STAFFORD Department: Room: Gender: F Registered Nurse Teacher: DIAMANTE : 1930 Requested By: MYRNA MARTINO Order Number: [id number] Reading MD: Roxanne Charles Measurements Intervals [place] Rate: 75 P: -6 DE: 196 QRS: 26 QRSD: 86 T: 36 QT: 388 QTc: 436 Interpretive Statements SINUS RHYTHM NORMAL EKG RI6.01 Unconfirmed report Compared to ECG 10/12/2016 19:02:13 Sinus tachycardia no longer present Electronically Signed On 10-28-2016 21:19:40 CDT by Roxanne Charles
--- NOTE | 2016-10-30 16:53 | VNOTE ---
CALL BACK NOTE CALL BACK Microbiology 10/27/16 Urine Culture - Final, Complete 10/27/16 Urine Culture Result 1 (SALTY) - Final, Complete 10/27/16 Urine Culture Result 2 (SALTY) - Final, Complete 10/27/16 Antimicrobic Susceptibility - Final, Complete Notified patient urine culture was positive. Patient request that antibiotic be called to the [facility]. Pres[facility] LILO VALENCIA GROCERY SHOPPER Oct 30, 2016 16:53
== END 2016-10-27 17:15 | disposition home or self-care (01) ==
LOC: ER 14:21
DX: R53.81 Other malaise (principal); R53.83 Other fatigue; R11.2 Nausea with vomiting, unspecified; K21.9 Gastro-esophageal reflux disease without esophagitis; E78.00 Pure hypercholesterolemia, unspecified; E03.9 Hypothyroidism, unspecified; I99.9 Unspecified disorder of circulatory system; M10.9 Gout, unspecified; Z90.5 Acquired absence of kidney; Z90.710 Acquired absence of both cervix and uterus; Z90.49 Acquired absence of other specified parts of digestive tract; Z90.721 Acquired absence of ovaries, unilateral
CPT/HCPCS: 36415; 80053; 81001; 83690; 84484; 85007; 85027; 87086; 93005; 96360; 96361; 99285; J7030

== ENCOUNTER 2017-01-09 12:40 | Inpatient (IN) | payer MEDICARE ==
[~2017-01-09] VITALS: Ht 152.4 cm; Wt 85.0 kg
--- NOTE | 2017-01-09 13:11 | PHYS DOC ---
Past Medical History Past Medical History: Cancer, GERD, High Cholesterol, Hypothyroid, Renal Disease, Vascular Disease, Other Additional Past Medical Histor: EDEMA BLE, CERVIX CA,GOUT, CELLULITIS Past Surgical History: Appendectomy, Cancer Surgery, Hysterectomy, Oophorectomy , Other Additional Past Surgical Histo: RIGHT NEPHRECTOMY Alcohol Use: None Drug Use: None Adult General Chief Complaint Chief Complaint: FLU SYMPTOM HPI HPI Patient is a 86 year old female who presents with fevers chills and generalized weakness and decreased appetite over the last 24 hours. She also states she's been coughing up green sputum. She states she feels weak and tired. She also has a chronic cellulitis in the right lower show many the doctor Tanika with ID has been treating. Currently she denies any nausea vomiting diarrhea or abdominal pain. She states she's had her influenza and her pneumococcal vaccines. Review of Systems Review of Systems Constitutional: Denies fever or chills [] Eyes: Denies change in visual acuity, redness, or eye pain [] HENT: Denies nasal congestion or sore throat [] Respiratory: Denies cough or shortness of breath [] Cardiovascular: No additional information not addressed in HPI [] GI: Denies abdominal pain, nausea, vomiting, bloody stools or diarrhea [] : Denies dysuria or hematuria [] Musculoskeletal: Denies back pain or joint pain [] Integument: Denies rash or skin lesions [] Neurologic: Denies headache, focal weakness or sensory changes [] Endocrine: Denies polyuria or polydipsia [] Current Medications Current Medications Current Medications Medications (Trade) Dose Ordered Sig/[facility] Start Time Stop Time Status Last Admin Dose Admin Acetaminophen (Tylenol) 1,000 mg 1X ONCE 01/09/17 14:00 01/09/17 14:01 DC 01/09/17 14:00 1,000 MG Allergies Allergies Allergies Coded Allergies Type Severity Reaction Last Updated Verified No Known Drug Allergies 03/02/14 No Physical Exam Physical Exam Constitutional: Well developed, well nourished, no acute distress, non-toxic appearance. [] HENT: Normocephalic, atraumatic, bilateral external ears normal, oropharynx moist, no oral exudates, nose normal. [] Eyes: PERRLA, EOMI, conjunctiva normal, no discharge. [] Neck: Normal range of motion, no tenderness, supple, no stridor. [] Cardiovascular:Heart rate regular rhythm, no murmur [] Lungs & Thorax: Bilateral breath sounds coarse to auscultation bilaterally with decreased sounds at the bases Abdomen: Bowel sounds normal, soft, no tenderness, no masses, no pulsatile masses. [] Skin: Warm, dry, no erythema, no rash. [] Back: No tenderness, no CVA tenderness. [] Extremities: No tenderness, no cyanosis, no clubbing, ROM intact, 2+ pitting edema in the right lower show many with erythema and pedunculated lesions. Neurologic: Alert and oriented X 3, normal motor function, normal sensory function, no focal deficits noted. [] Psychologic: Affect normal, judgement normal, mood normal. [] Current Patient Data Vital Signs Vital Signs Date Time Temp Pulse Resp B/P (MAP) Pulse Ox O2 Delivery O2 Flow Rate FiO2 01/09/17 14:00 76 22 141/63 (89) 97 Room Air 01/09/17 13:07 98.0 98.0 Lab Values Laboratory Tests Test 01/09/17 13:26 01/09/17 13:44 White Blood Count 19.8 x10^3/uL (4.0-11.0) H Red Blood Count 4.05 x10^6/uL (3.50-5.40) Hemoglobin 12.2 g/dL (12.0-15.5) Hematocrit 37.2 % (36.0-47.0) Mean Corpuscular Volume 92 fL (79-100) Mean Corpuscular Hemoglobin 30 pg (25-35) Mean Corpuscular Hemoglobin Concent 33 g/dL (31-37) Red Cell Distribution Width 15.4 % (11.5-14.5) H Platelet Count 207 x10^3/uL (140-400) Neutrophils (%) (Auto) 91 % (31-73) H Lymphocytes (%) (Auto) 6 % (24-48) L Monocytes (%) (Auto) 2 % (0-9) Eosinophils (%) (Auto) 0 % (0-3) Basophils (%) (Auto) 0 % (0-3) Neutrophils # (Auto) 18.0 x10^3uL (1.8-7.7) H Lymphocytes # (Auto) 1.2 x10^3/uL (1.0-4.8) Monocytes # (Auto) 0.4 x10^3/uL (0.0-1.1) Eosinophils # (Auto) 0.0 x10^3/uL (0.0-0.7) Basophils # (Auto) 0.1 x10^3/uL (0.0-0.2) Segmented Neutrophils % 82 % (35-66) H Band Neutrophils % 8 % (0-9) Lymphocytes % 8 % (24-48) L Atypical Lymphocytes % (Manual) 1 % (0-0) H Monocytes % 1 % (0-10) Platelet Estimate Adequate (ADEQUATE) Prothrombin Time 12.8 SEC (11.7-14.0) Prothrombin Time INR 1.0 (0.8-1.1) PTT 33 SEC (24-38) Sodium Level 139 mmol/L (136-145) Potassium Level 4.3 mmol/L (3.5-5.1) Chloride Level 101 mmol/L (98-107) Carbon Dioxide Level 27 mmol/L (21-32) Anion Gap 11 (6-14) Blood Urea Nitrogen 30 mg/dL (7-20) H Creatinine 1.4 mg/dL (0.6-1.0) H Estimated GFR (Cockcroft-Gault) 35.7 Glucose Level 118 mg/dL (70-99) H Lactic Acid Level 1.5 mmol/L (0.4-2.0) Calcium Level 8.7 mg/dL (8.5-10.1) Total Bilirubin 0.5 mg/dL (0.2-1.0) Direct Bilirubin 0.1 mg/dL (0.0-0.2) Aspartate Amino Transferase (AST) 20 U/L (15-37) Alanine Aminotransferase (ALT) 17 U/L (14-59) Alkaline Phosphatase 83 U/L (46-116) Creatine Kinase 64 U/L (26-192) Creatine Kinase MB (Mass) 0.6 ng/mL (0.0-3.6) Creatine Kinase MB Relative Index % (0-4) Troponin I Quantitative < 0.017 ng/mL (0.000-0.055) Total Protein 7.0 g/dL (6.4-8.2) Albumin 3.4 g/dL (3.4-5.0) Urine Collection Type Unknown Urine Color Straw Urine Clarity Cloudy Urine pH 6.5 Urine Specific [place] 1.015 Urine Protein Negative mg/dL (NEG-TRACE) Urine Glucose (UA) Negative mg/dL (NEG) Urine Ketones (Stick) Negative mg/dL (NEG) Urine Blood Negative (NEG) Urine Nitrite Negative (NEG) Urine Bilirubin Negative (NEG) Urine Urobilinogen Dipstick 0.2 mg/dL (0.2 mg/dL) Urine Leukocyte Esterase Large (NEG) Urine RBC Occ /HPF (0-2) Urine WBC 11-20 /HPF (0-4) Urine Squamous Epithelial Cells Occ /LPF Urine Bacteria Many /HPF (0-FEW) Laboratory Tests 01/09/17 13:26 Laboratory Tests 01/09/17 13:26 EKG EKG EKG shows sinus rhythm [address] elevations or T-wave inversions, normal axis, QTC 427 ms, as interpreted by me. Radiology/Procedures Radiology/Procedures [facility] [address] [place] [address] IMAGING REPORT Signed PATIENT: NICKIE STAFFORD ACCOUNT: [id number] : 1930 LOCATION: [address] [place] [address] AGE: 86 SEX: F EXAM STATUS: ADM IN ORD. PHYSICIAN: MAAME SILVA MD REASON: fever PROCEDURE: CHEST PA & LATERAL Chest, 2 views, 01/09/2017: History: Fever, productive cough Comparison is made to a study from 10/12/2016. The heart size and pulmonary vascularity are normal. There is calcific plaquing the aorta. No pulmonary infiltrates are seen. There is no evidence of pleural fluid. Mild spurring is present in the spine. IMPRESSION: No acute cardiopulmonary abnormality is detected. DICTATED and SIGNED BY: BRIELLE GRAHAM MD DATE: 01/09/17 [id number] CC: MAAME SILVA MD; ADRIANA ROSARIO MD; ISAURA ABBOTT MD ~ Impressions: Cellulitis right lower extremities Bronchitis Course & Med Decision Making Course & Med Decision Making Pertinent Labs and Imaging studies reviewed. (See chart for details) She has an elevated white blood cell count with normal bands. Chest x-ray does not show any acute abnormality so suspect her greenish sputum production is likely bronchitis. Her right leg is swollen, erythematous. She will be admitted for her symptoms and I spoke with Dr. Sagastume with infectious disease who wanted to start her on Zosyn. She also likely has a urinary tract infection. Dragon Disclaimer Dragon Disclaimer This electronic medical record was generated, in whole or in part, using a voice recognition dictation system. Departure Departure Impression: Primary Impression: Cellulitis Disposition: ADMITTED INPATIENT Admitting Physician: Yonatan Abbott Condition: STABLE Referrals: ADRIANA ROSARIO MD (PCP) Problem Qualifiers Primary Impression: Cellulitis Site of cellulitis of extremity: lower extremity Laterality: right MAAME SILVA MD Jan 09, 2017 13:11
[2017-01-09 13:41] LABS: BASO # 0.1 x10^3/uL (0.0-0.2); BASO % 0 % (0-3); EOS % 0 % (0-3); HEMATOCRIT 37.2 % (36.0-47.0); HEMOGLOBIN 12.2 g/dL (12.0-15.5); LYMPH # 1.2 x10^3/uL (1.0-4.8); LYMPH % 6 % (24-48); MEAN CORPUSCULAR HEMOGLOBIN 30 pg (25-35); MEAN CORPUSCULAR HGB CONC 33 g/dL (31-37); MEAN CORPUSCULAR VOLUME 92 fL (79-100); MONO % 2 % (0-9); NEUT % 91 % (31-73); PLATELET COUNT 207 x10^3/uL (140-400); RED BLOOD COUNT 4.05 x10^6/uL (3.50-5.40); RED CELL DISTRIBUTION WIDTH 15.4 % (11.5-14.5); WHITE BLOOD COUNT 19.8 x10^3/uL (4.0-11.0)
[2017-01-09 13:54] LABS: PROTHROMBIN TIME PATIENT 12.8 SEC (11.7-14.0)
[2017-01-09 13:59] LABS: CALCIUM 8.7 mg/dL (8.5-10.1); CREATININE 1.4 mg/dL (0.6-1.0); GFR 35.7; POTASSIUM 4.3 mmol/L (3.5-5.1)
[2017-01-09 13:59] LABS: BILIRUBIN,URINE NEGATIVE (NEG); GLUCOSE,URINE NEGATIVE (NEG); NITRITE,URINE NEGATIVE (NEG); PH,URINE 6.5; PROTEIN,URINE NEGATIVE (NEG-TRACE); UROBILINOGEN,URINE 0.2 mg/dL (0.2 mg/dL)
[2017-01-09] MEDS ORDERED: ACETAMINOPHEN 500 MG TABLET PO ONE (14:00)
[2017-01-09 14:04] LABS: ALBUMIN 3.4 g/dL (3.4-5.0); DIRECT BILIRUBIN 0.1 mg/dL (0.0-0.2); TOTAL BILIRUBIN 0.5 mg/dL (0.2-1.0)
[2017-01-09 14:18] LABS: BACTERIA,URINE MANY /HPF (0-FEW); RBC,URINE OCC /HPF (0-2); SQUAMOUS EPITHELIAL CELL,UR OCC /LPF
[2017-01-09 14:35] LABS: CKMB MASS 0.6 ng/mL (0.0-3.6); CREATINE KINASE 64 U/L (26-192)
[2017-01-09 14:43] LABS: PLT ESTIMATE ADEQUATE (ADEQUATE)
--- NOTE | 2017-01-09 15:09 | EKG ---
[facility] [address] [place] [address] Test Date: 2017-01-09 Test Time: 14:01:16 Pat Name: NICKIE STAFFORD Department: Room: [facility] Gender: F Mine Wirer: : 1930 Requested By: MAAME SILVA Order Number: [id number] Reading MD: Alexis Mcgee Measurements Intervals [place] Rate: 73 P: 0 [place]: 162 QRS: 28 QRSD: 90 T: 38 QT: 384 QTc: 427 Interpretive Statements SINUS RHYTHM Electronically Signed On 01-14-2017 12:07:44 CDT by Alexis Mcgee
--- NOTE | 2017-01-09 15:15 | RAD ---
Chest, 2 views, 01/09/2017: History: Fever, productive cough Comparison is made to a study from 10/12/2016. The heart size and pulmonary vascularity are normal. There is calcific plaquing the aorta. No pulmonary infiltrates are seen. There is no evidence of pleural fluid. Mild spurring is present in the spine. IMPRESSION: No acute cardiopulmonary abnormality is detected.
[2017-01-09 15:58] VITALS: BP 111/42
[2017-01-09] MEDS ORDERED: PIP/TAZO PER PHARMACY MC PRN (16:15)
[2017-01-09] MEDS: PIPERACILLIN/TAZOBACTAM 2.25 GM in IV NORMAL SALINE 50ML 50 ML IV SCH (16:39)
[2017-01-09] MEDS ORDERED: MORPHINE SULFATE 4 MG/ML DISP.SYRIN. IV PRN (17:00)
[2017-01-09] MEDS ORDERED: ALBUTEROL SULFATE 2.5 MG/3 ML NEBU. NEB PRN (17:00)
[2017-01-09] MEDS ORDERED: hydrALAZINE 20 MG/ML VIAL. IVP PRN (17:00)
[2017-01-09] MEDS ORDERED: traMADol 50 MG TABLET PO PRN (17:00)
[2017-01-09] MEDS ORDERED: DOCUSATE SODIUM 100 MG CAPSULE. PO PRN (17:00)
[2017-01-09] MEDS ORDERED: ONDANSETRON PF 4 MG/2 ML VIAL. IV PRN (17:00)
--- NOTE | 2017-01-09 17:01 | PDOC1 ---
History and Physical Date of Admission Date of Admission 01/09/17 Identification/Chief Complaint Chief Complaint fever, chills, cough, right leg pain Problems: Source Source: Chart review, Patient History of Present Illness History of Present Illness HPI Patient is a 86 year old female who presents with fevers chills and generalized weakness and decreased appetite over the last 24 hours. Pt was here for similar symptom in September, and was DCed by me, home with elly caldera. Pt has likely mild dementia, severe hearing loss, (need to shout to her at least too times to answer her questions), said she has been feeling some fever, chills, no T details, follows with dr. Sagastume for right leg cellulitis, and requires to see him again. She lives alone, refused HH last night, said coughing with some green sputum. Currently she denies any nausea vomiting diarrhea or abdominal pain. She states she's had her influenza and her pneumococcal vaccines. Past Medical History Cardiovascular: HTN, Hyperlipidemia GI: GERD Rheumatologic: Gout Renal/: Chronic renal failure Endocrine: Hypothyroidism Past Surgical History Past Surgical History: Hysterectomy Family History Family History: Hypertension Social History Smoke: No ALCOHOL: none Drugs: None Current Problem List Problem List Problems Medical Problems: (1) Cellulitis Status: Acute Current Medications Current Medications Current Medications Medications (Trade) Dose Ordered Sig/Dimple Start Time Stop Time Status Last Admin Dose Admin Acetaminophen (Tylenol) 1,000 mg 1X ONCE 01/09/17 14:00 01/09/17 14:01 DC 01/09/17 14:00 1,000 MG Piperacillin Sod/ Tazobactam Sod (Zosyn Per Pharmacy) 1 each PRN DAILY PRN 01/09/17 16:15 Piperacillin Sod/ Tazobactam Sod 2.25 gm/Sodium Chloride 50 ml @ 100 mls/hr Q6HRS 01/09/17 17:00 01/09/17 16:39 100 MLS/HR Allergies Allergies Allergies Coded Allergies Type Severity Reaction Last Updated Verified No Known Drug Allergies 03/02/14 No ROS Review of System CONSTITUTIONAL: No fever or chills EYES: No recent changes SKIN: No rash or itching CARDIOVASCULAR: No chest pain, syncope, palpitations, or edema RESPIRATORY: No SOB , + cough GASTROINTESTINAL: No nausea, vomiting or abdominal pain NEUROLOGICAL: No headaches or weakness ENDOCRINE: No cold or heat intolerance GENITOURINARY: No urgency or frequency of urination MUSCULOSKELETAL: No back pain or joint pain LYMPHATICS: No enlarged lymph nodes PSYCHIATRIC: No anxiety or depression Physical Exam Physical Exam GEN.: No apparent distress. Alert and oriented. HEENT: Head is normocephalic, atraumatic NECK: Supple. LUNGS: Clear to auscultation. HEART: RRR, S1, S2 present. Peripheral pulses intact ABDOMEN: Soft, nontender. Positive bowel sounds. EXTREMITIES: Without any cyanosis. NEUROLOGIC: Normal speech, normal tone PSYCHIATRIC: Normal affect, normal mood. SKIN: No ulcerations Vitals Vitals Vital Signs Date Time Temp Pulse Resp B/P (MAP) Pulse Ox O2 Delivery O2 Flow Rate FiO2 01/09/17 15:58 97.7 70 16 111/42 (65) 90 Room Air 97.7 Labs Labs Laboratory Tests Test 01/09/17 13:26 01/09/17 13:44 White Blood Count 19.8 x10^3/uL (4.0-11.0) Red Blood Count 4.05 x10^6/uL (3.50-5.40) Hemoglobin 12.2 g/dL (12.0-15.5) Hematocrit 37.2 % (36.0-47.0) Mean Corpuscular Volume 92 fL (79-100) Mean Corpuscular Hemoglobin 30 pg (25-35) Mean Corpuscular Hemoglobin Concent 33 g/dL (31-37) Red Cell Distribution Width 15.4 % (11.5-14.5) Platelet Count 207 x10^3/uL (140-400) Neutrophils (%) (Auto) 91 % (31-73) Lymphocytes (%) (Auto) 6 % (24-48) Monocytes (%) (Auto) 2 % (0-9) Eosinophils (%) (Auto) 0 % (0-3) Basophils (%) (Auto) 0 % (0-3) Neutrophils # (Auto) 18.0 x10^3uL (1.8-7.7) Lymphocytes # (Auto) 1.2 x10^3/uL (1.0-4.8) Monocytes # (Auto) 0.4 x10^3/uL (0.0-1.1) Eosinophils # (Auto) 0.0 x10^3/uL (0.0-0.7) Basophils # (Auto) 0.1 x10^3/uL (0.0-0.2) Segmented Neutrophils % 82 % (35-66) Band Neutrophils % 8 % (0-9) Lymphocytes % 8 % (24-48) Atypical Lymphocytes % (Manual) 1 % (0-0) Monocytes % 1 % (0-10) Platelet Estimate Adequate (ADEQUATE) Prothrombin Time 12.8 SEC (11.7-14.0) Prothromb Time International Ratio 1.0 (0.8-1.1) Activated Partial Thromboplast Time 33 SEC (24-38) Sodium Level 139 mmol/L (136-145) Potassium Level 4.3 mmol/L (3.5-5.1) Chloride Level 101 mmol/L (98-107) Carbon Dioxide Level 27 mmol/L (21-32) Anion Gap 11 (6-14) Blood Urea Nitrogen 30 mg/dL (7-20) Creatinine 1.4 mg/dL (0.6-1.0) Estimated GFR (Cockcroft-Gault) 35.7 Glucose Level 118 mg/dL (70-99) Lactic Acid Level 1.5 mmol/L (0.4-2.0) Calcium Level 8.7 mg/dL (8.5-10.1) Total Bilirubin 0.5 mg/dL (0.2-1.0) Direct Bilirubin 0.1 mg/dL (0.0-0.2) Aspartate Amino Transf (AST/SGOT) 20 U/L (15-37) Alanine Aminotransferase (ALT/SGPT) 17 U/L (14-59) Alkaline Phosphatase 83 U/L (46-116) Creatine Kinase 64 U/L (26-192) Creatine Kinase MB (Mass) 0.6 ng/mL (0.0-3.6) Creatine Kinase MB Relative Index % (0-4) Troponin I Quantitative < 0.017 ng/mL (0.000-0.055) Total Protein 7.0 g/dL (6.4-8.2) Albumin 3.4 g/dL (3.4-5.0) Urine Collection Type Unknown Urine Color Straw Urine Clarity Cloudy Urine pH 6.5 Urine Specific [place] 1.015 Urine Protein Negative mg/dL (NEG-TRACE) Urine Glucose (UA) Negative mg/dL (NEG) Urine Ketones (Stick) Negative mg/dL (NEG) Urine Blood Negative (NEG) Urine Nitrite Negative (NEG) Urine Bilirubin Negative (NEG) Urine Urobilinogen Dipstick 0.2 mg/dL (0.2 mg/dL) Urine Leukocyte Esterase Large (NEG) Urine RBC Occ /HPF (0-2) Urine WBC 11-20 /HPF (0-4) Urine Squamous Epithelial Cells Occ /LPF Urine Bacteria Many /HPF (0-FEW) Laboratory Tests Test 01/09/17 13:26 01/09/17 13:44 White Blood Count 19.8 x10^3/uL (4.0-11.0) Red Blood Count 4.05 x10^6/uL (3.50-5.40) Hemoglobin 12.2 g/dL (12.0-15.5) Hematocrit 37.2 % (36.0-47.0) Mean Corpuscular Volume 92 fL (79-100) Mean Corpuscular Hemoglobin 30 pg (25-35) Mean Corpuscular Hemoglobin Concent 33 g/dL (31-37) Red Cell Distribution Width 15.4 % (11.5-14.5) Platelet Count 207 x10^3/uL (140-400) Neutrophils (%) (Auto) 91 % (31-73) Lymphocytes (%) (Auto) 6 % (24-48) Monocytes (%) (Auto) 2 % (0-9) Eosinophils (%) (Auto) 0 % (0-3) Basophils (%) (Auto) 0 % (0-3) Neutrophils # (Auto) 18.0 x10^3uL (1.8-7.7) Lymphocytes # (Auto) 1.2 x10^3/uL (1.0-4.8) Monocytes # (Auto) 0.4 x10^3/uL (0.0-1.1) Eosinophils # (Auto) 0.0 x10^3/uL (0.0-0.7) Basophils # (Auto) 0.1 x10^3/uL (0.0-0.2) Segmented Neutrophils % 82 % (35-66) Band Neutrophils % 8 % (0-9) Lymphocytes % 8 % (24-48) Atypical Lymphocytes % (Manual) 1 % (0-0) Monocytes % 1 % (0-10) Platelet Estimate Adequate (ADEQUATE) Prothrombin Time 12.8 SEC (11.7-14.0) Prothromb Time International Ratio 1.0 (0.8-1.1) Activated Partial Thromboplast Time 33 SEC (24-38) Sodium Level 139 mmol/L (136-145) Potassium Level 4.3 mmol/L (3.5-5.1) Chloride Level 101 mmol/L (98-107) Carbon Dioxide Level 27 mmol/L (21-32) Anion Gap 11 (6-14) Blood Urea Nitrogen 30 mg/dL (7-20) Creatinine 1.4 mg/dL (0.6-1.0) Estimated GFR (Cockcroft-Gault) 35.7 Glucose Level 118 mg/dL (70-99) Lactic Acid Level 1.5 mmol/L (0.4-2.0) Calcium Level 8.7 mg/dL (8.5-10.1) Total Bilirubin 0.5 mg/dL (0.2-1.0) Direct Bilirubin 0.1 mg/dL (0.0-0.2) Aspartate Amino Transf (AST/SGOT) 20 U/L (15-37) Alanine Aminotransferase (ALT/SGPT) 17 U/L (14-59) Alkaline Phosphatase 83 U/L (46-116) Creatine Kinase 64 U/L (26-192) Creatine Kinase MB (Mass) 0.6 ng/mL (0.0-3.6) Creatine Kinase MB Relative Index % (0-4) Troponin I Quantitative < 0.017 ng/mL (0.000-0.055) Total Protein 7.0 g/dL (6.4-8.2) Albumin 3.4 g/dL (3.4-5.0) Urine Collection Type Unknown Urine Color Straw Urine Clarity Cloudy Urine pH 6.5 Urine Specific [place] 1.015 Urine Protein Negative mg/dL (NEG-TRACE) Urine Glucose (UA) Negative mg/dL (NEG) Urine Ketones (Stick) Negative mg/dL (NEG) Urine Blood Negative (NEG) Urine Nitrite Negative (NEG) Urine Bilirubin Negative (NEG) Urine Urobilinogen Dipstick 0.2 mg/dL (0.2 mg/dL) Urine Leukocyte Esterase Large (NEG) Urine RBC Occ /HPF (0-2) Urine WBC 11-20 /HPF (0-4) Urine Squamous Epithelial Cells Occ /LPF Urine Bacteria Many /HPF (0-FEW) VTE Prophylaxis Ordered VTE Prophylaxis Devices: Yes VTE Pharmacological Prophylaxi: Yes Assessment/Plan Assessment/Plan 1.right leg recurrent cellulitis with bl leg lymphedema 2. sepsis with 1 htn hld GERD ckd3 with h/o nephrectomy h/o cervical Ca bl leg chronic lymphedema morbid obesity hypothyroidism severe hearing loss mild dementia bronchitis plan: id consult on zosyn for now cont home meds duoneb, check sputum, check flu PTOT dvt ppx SW for possible SNF wound care ISAURA ABBOTT MD Jan 09, 2017 17:01
[2017-01-09] MEDS: PANTOPRAZOLE 40 MG TABLET.DR. PO SCH (17:46)
[2017-01-09] MEDS: ASPIRIN ENTERIC COATED 81 MG TABLET.DR. PO SCH (17:46)
[2017-01-09] MEDS: FUROSEMIDE 40 MG TABLET. PO SCH (17:46)
[2017-01-09] MEDS: LEVOTHYROXINE 75 MCG TABLET PO SCH (17:46)
[2017-01-09] MEDS: CITALOPRAM 10 MG TABLET. PO SCH (17:46)
[2017-01-09] MEDS: ALLOPURINOL 100 MG TABLET. PO SCH (17:47)
[2017-01-09 18:07] LABS: OBC FLU VALID
[2017-01-09 19:00] VITALS: BP 126/51
[2017-01-09] MEDS: IPRATRPIUM/ALBUTEROL 0.5/2.5MG 3 ML NEBU. NEB SCH (20:04)
[2017-01-09] MEDS: SIMVASTATIN 40 MG TABLET. PO SCH (21:06)
[2017-01-09] MEDS: HEPARIN PF for SUB-Q USE 5,000 UNIT/0.5 ML VIAL. SQ SCH (22:19)
[2017-01-09 23:07] VITALS: BP 129/48
[2017-01-10] MEDS: PIPERACILLIN/TAZOBACTAM 2.25 GM in IV NORMAL SALINE 50ML 50 ML IV SCH ×2 (00:02→06:02)
[2017-01-10 03:00] VITALS: BP 130/52
[2017-01-10 05:51] LABS: BASO % 0 % (0-3); EOS % 2 % (0-3); HEMATOCRIT 34.4 % (36.0-47.0); HEMOGLOBIN 11.3 g/dL (12.0-15.5); LYMPH # 1.5 x10^3/uL (1.0-4.8); LYMPH % 14 % (24-48); MEAN CORPUSCULAR HEMOGLOBIN 30 pg (25-35); MEAN CORPUSCULAR HGB CONC 33 g/dL (31-37); MEAN CORPUSCULAR VOLUME 91 fL (79-100); MONO % 7 % (0-9); NEUT % 76 % (31-73); PLATELET COUNT 178 x10^3/uL (140-400); RED BLOOD COUNT 3.77 x10^6/uL (3.50-5.40); RED CELL DISTRIBUTION WIDTH 15.2 % (11.5-14.5); WHITE BLOOD COUNT 10.5 x10^3/uL (4.0-11.0)
[2017-01-10] MEDS: HEPARIN PF for SUB-Q USE 5,000 UNIT/0.5 ML VIAL. SQ SCH ×3 (06:00→20:58)
[2017-01-10] MEDS: LEVOTHYROXINE 75 MCG TABLET PO SCH (06:02)
[2017-01-10] MEDS: PANTOPRAZOLE 40 MG TABLET.DR. PO SCH (06:03)
--- NOTE | 2017-01-10 06:15 | ACF ---
Admission Forms Criteria CELLULITIS Clinical Indications for Admission to Inpatient Care (tatitlek/check or initial the applicable condition/criteria) Admission is indicated for ANY ONE of the following(1)(2)(3)(4)(5): [ ]I. Limb-threatening infection [ ]II. High-risk comorbid condition as indicated by ANY ONE of the following: [ ]a) Uncontrolled diabetes (eg, HbA1c greater than 10% (0.1)) [ ]b) Cirrhosis [ ]c) Neutropenia [ ]d) Asplenia(12) [ ]e) Immunosuppression [ ]f) Symptomatic heart failure [ ]III. Failure of outpatient therapy as indicated by ALL of the following(6): [ ]a) Progression or no improvement after adequate trial (minimum of 48 hours, with longer period for stable lower extremity infection) [ ]b) Adequate antibiotic regimen as indicated by use of ANY ONE of the following: [ ]i) First-generation cephalosporin (e.g., cephalexin) [ ]ii) Antistaphylococcal penicillin (e.g., dicloxacillin) [ ]iii) Penicillin-allergic patient regimen (clindamycin, extended-spectrum fluoroquinolone, or doxycycline) [ ]iv) Resistant organism (eg, methicillin-resistant Staphylococcus aureus) regimen (7)(8) [ ]c) Outpatient intravenous therapy regimen is not appropriate due to ANY ONE of the following. (9)(10) [ ]i) It was tried and was not successful (eg, progression of infection). [ ]ii) It is not available or cannot be arranged in a clinically appropriate time frame (e.g., the next day). [ ]iii) Clinical presentation (eg, acuity of infection, rapidity of progression, confirmed or suspected bacteremia) is judged to require ALL of the following: [ ]1) Immediate initiation of intravenous therapy ( eg, cannot wait for next day) [ ]2) Intensity of patient monitoring and observation (eg, vital sign measurement, checks for infection progression) that cannot be provided at other than inpatient level of care [ ]IV. Altered Mental status that is severe or persistent [ ]V. Bacteremia [ ]. Hemodynamic instability [ ]VII. Suspected necrotizing soft tissue infection (e.g., gas in tissue)(13)( 14)(15) [ ]VIII. Orbital infection (16)(17) [ ]XI. Associated surgical procedure (e.g., abscess drainage, debridement) not amenable to outpatient, emergency department, or observation care [ ]X. Cutaneous gangrene(19) [ ]XII. High fever (temperature greater than 39.5 degrees C (103.1 degrees F) (oral)) not responsive to outpatient, emergency department, or observation care therapy(20)(21) [X]XIII. Inpatient admission required [A]rather than observation care (Also use Cellulitis: Observation Care as appropriate) because of ANY ONE of the following(22)(23): [ ]a) Periorbital or perineal infection that is severe or worsening [X]b) Severe pain requiring acute inpatient management [ ]b) IV fluid to replace significant ongoing (e.g., for over 24 hours) losses (greater than 3 L/m2 per day) [ ]b) Compartment syndrome monitoring (24) [ ]b) Strict or protective (eg, laminar flow) isolation) [ ]b) Urgent debridement or skin grafting [ ]b) Bone or joint debridement [ ]b) Immediate inpatient surgery [ ]b) Other condition, treatment, or monitoring requiring inpatient admission Extended stay beyond goal length of stay may be needed for(18)(36)(37)(38)(39)( 40)(41) [ ]a) Necrotizing soft tissue infection or fasciitis(13)(42) [ ]b) Gram-negative infection [ ]c) Methicillin-resistant Staphylococcal aureus (MRSA) infection(7)(43) [ ]d) Peripheral venous insufficiency with cellulitis [ ]e) Extensive edema [ ]f) Sepsis or continued Hemodynamic instability [ ]g) Continued high fever or mental status change [ ]h) Bacteremia(43) [ ]i) Active serious comorbid conditions ( eg, heart failure, renal insufficiency) The original [facility] content created by [employer] has been revised. The portions of the content which have been revised are identified through the use of italic text, and [facility] has neither reviewed nor approved the modified material. All other unmodified content is copyright [facility] Please see references footnoted in the original [facility] edition 2014 Admission Criteria Met?: Yes SHEKHAR SANTIAGO Jan 10, 2017 06:14
[2017-01-10 06:33] LABS: CALCIUM 8.5 mg/dL (8.5-10.1); CREATININE 1.5 mg/dL (0.6-1.0)
[2017-01-10 07:00] VITALS: BP 110/42
[2017-01-10] MEDS: IPRATRPIUM/ALBUTEROL 0.5/2.5MG 3 ML NEBU. NEB SCH ×4 (07:46→19:55)
[2017-01-10] MEDS: ASPIRIN ENTERIC COATED 81 MG TABLET.DR. PO SCH (09:29)
[2017-01-10] MEDS: FUROSEMIDE 40 MG TABLET. PO SCH (09:30)
[2017-01-10] MEDS: CITALOPRAM 10 MG TABLET. PO SCH (09:30)
[2017-01-10] MEDS: ACETAMINOPHEN 325 MG TABLET. PO PRN ×2 (09:31→20:56)
[2017-01-10] MEDS: ALLOPURINOL 100 MG TABLET. PO SCH (09:31)
--- NOTE | 2017-01-10 09:51 | PDOC ---
Infectious Disease Note Vital Sign Vital Signs Vital Signs Date Time Temp Pulse Resp B/P (MAP) Pulse Ox O2 Delivery O2 Flow Rate FiO2 01/10/17 07:47 Room Air 01/10/17 07:00 96.4 73 18 110/42 (64) 95 96.4 Labs Lab Laboratory Tests Test 01/09/17 13:26 01/09/17 13:44 01/09/17 17:35 01/09/17 21:45 White Blood Count 19.8 x10^3/uL (4.0-11.0) Red Blood Count 4.05 x10^6/uL (3.50-5.40) Hemoglobin 12.2 g/dL (12.0-15.5) Hematocrit 37.2 % (36.0-47.0) Mean Corpuscular Volume 92 fL (79-100) Mean Corpuscular Hemoglobin 30 pg (25-35) Mean Corpuscular Hemoglobin Concent 33 g/dL (31-37) Red Cell Distribution Width 15.4 % (11.5-14.5) Platelet Count 207 x10^3/uL (140-400) Neutrophils (%) (Auto) 91 % (31-73) Lymphocytes (%) (Auto) 6 % (24-48) Monocytes (%) (Auto) 2 % (0-9) Eosinophils (%) (Auto) 0 % (0-3) Basophils (%) (Auto) 0 % (0-3) Neutrophils # (Auto) 18.0 x10^3uL (1.8-7.7) Lymphocytes # (Auto) 1.2 x10^3/uL (1.0-4.8) Monocytes # (Auto) 0.4 x10^3/uL (0.0-1.1) Eosinophils # (Auto) 0.0 x10^3/uL (0.0-0.7) Basophils # (Auto) 0.1 x10^3/uL (0.0-0.2) Segmented Neutrophils % 82 % (35-66) Band Neutrophils % 8 % (0-9) Lymphocytes % 8 % (24-48) Atypical Lymphocytes % (Manual) 1 % (0-0) Monocytes % 1 % (0-10) Platelet Estimate Adequate (ADEQUATE) Prothrombin Time 12.8 SEC (11.7-14.0) Prothromb Time International Ratio 1.0 (0.8-1.1) Activated Partial Thromboplast Time 33 SEC (24-38) Sodium Level 139 mmol/L (136-145) Potassium Level 4.3 mmol/L (3.5-5.1) Chloride Level 101 mmol/L (98-107) Carbon Dioxide Level 27 mmol/L (21-32) Anion Gap 11 (6-14) Blood Urea Nitrogen 30 mg/dL (7-20) Creatinine 1.4 mg/dL (0.6-1.0) Estimated GFR (Cockcroft-Gault) 35.7 Glucose Level 118 mg/dL (70-99) Lactic Acid Level 1.5 mmol/L (0.4-2.0) Calcium Level 8.7 mg/dL (8.5-10.1) Total Bilirubin 0.5 mg/dL (0.2-1.0) Direct Bilirubin 0.1 mg/dL (0.0-0.2) Aspartate Amino Transf (AST/SGOT) 20 U/L (15-37) Alanine Aminotransferase (ALT/SGPT) 17 U/L (14-59) Alkaline Phosphatase 83 U/L (46-116) Creatine Kinase 64 U/L (26-192) Creatine Kinase MB (Mass) 0.6 ng/mL (0.0-3.6) Creatine Kinase MB Relative Index % (0-4) Troponin I Quantitative < 0.017 ng/mL (0.000-0.055) < 0.017 ng/mL (0.000-0.055) Total Protein 7.0 g/dL (6.4-8.2) Albumin 3.4 g/dL (3.4-5.0) Urine Collection Type Unknown Urine Color Straw Urine Clarity Cloudy Urine pH 6.5 Urine Specific [place] 1.015 Urine Protein Negative mg/dL (NEG-TRACE) Urine Glucose (UA) Negative mg/dL (NEG) Urine Ketones (Stick) Negative mg/dL (NEG) Urine Blood Negative (NEG) Urine Nitrite Negative (NEG) Urine Bilirubin Negative (NEG) Urine Urobilinogen Dipstick 0.2 mg/dL (0.2 mg/dL) Urine Leukocyte Esterase Large (NEG) Urine RBC Occ /HPF (0-2) Urine WBC 11-20 /HPF (0-4) Urine Squamous Epithelial Cells Occ /LPF Urine Bacteria Many /HPF (0-FEW) Influenza Type A Antigen Negative (NEGATIVE) Influenza Type B Antigen Negative (NEGATIVE) Test 01/10/17 05:35 White Blood Count 10.5 x10^3/uL (4.0-11.0) Red Blood Count 3.77 x10^6/uL (3.50-5.40) Hemoglobin 11.3 g/dL (12.0-15.5) Hematocrit 34.4 % (36.0-47.0) Mean Corpuscular Volume 91 fL (79-100) Mean Corpuscular Hemoglobin 30 pg (25-35) Mean Corpuscular Hemoglobin Concent 33 g/dL (31-37) Red Cell Distribution Width 15.2 % (11.5-14.5) Platelet Count 178 x10^3/uL (140-400) Neutrophils (%) (Auto) 76 % (31-73) Lymphocytes (%) (Auto) 14 % (24-48) Monocytes (%) (Auto) 7 % (0-9) Eosinophils (%) (Auto) 2 % (0-3) Basophils (%) (Auto) 0 % (0-3) Neutrophils # (Auto) 8.0 x10^3uL (1.8-7.7) Lymphocytes # (Auto) 1.5 x10^3/uL (1.0-4.8) Monocytes # (Auto) 0.8 x10^3/uL (0.0-1.1) Eosinophils # (Auto) 0.2 x10^3/uL (0.0-0.7) Basophils # (Auto) 0.0 x10^3/uL (0.0-0.2) Sodium Level 143 mmol/L (136-145) Potassium Level 4.0 mmol/L (3.5-5.1) Chloride Level 106 mmol/L (98-107) Carbon Dioxide Level 30 mmol/L (21-32) Anion Gap 7 (6-14) Blood Urea Nitrogen 29 mg/dL (7-20) Creatinine 1.5 mg/dL (0.6-1.0) Estimated GFR (Cockcroft-Gault) 33.0 Glucose Level 105 mg/dL (70-99) Calcium Level 8.5 mg/dL (8.5-10.1) Troponin I Quantitative < 0.017 ng/mL (0.000-0.055) Objective Assessment Fever and chills Leukocytosis Rt leg cellulitis Lymphedema Plan Plan of Care change zosyn to cefazolin, d/c hopefully tomorrow on po keflex supportive care EDUARDO RIZVI MD Jan 10, 2017 09:51
--- NOTE | 2017-01-10 10:53 | CONS ---
DATE OF CONSULTATION: 01/10/2017 REQUESTING PHYSICIAN: Jeff Dennis M.D. REASON FOR CONSULTATION: Leg cellulitis. HISTORY OF PRESENT ILLNESS: This is an 86-year-old female with history of lymphedema of lower extremity, who came in with weakness, who had chills and leg swelling and redness, especially on the right leg. The patient does have also some cough with green sputum. She says no urinary symptoms. No nausea, vomiting or diarrhea. Denies any chest pain, shortness of breath or abdominal pain. The patient has been started on Zosyn. The ER physician called me, discussed and the patient has been admitted. PAST MEDICAL HISTORY: Positive for multiple bouts of recurrent cellulitis of the lower extremity. The patient has lymphedema and polypoid lesions on the leg. The patient also has renal insufficiency with right nephrectomy done in the past, gastroesophageal reflux disease, obesity, gout, hypothyroidism and hyperlipidemia. Has had hysterectomy and appendicectomy. SOCIAL HISTORY: Negative for smoking, alcohol or illicit drug use. ALLERGIES: No known drug allergies. CURRENT MEDICATIONS: Reviewed. The patient is currently started on Zosyn after my communication with the ER physician yesterday. REVIEW OF SYSTEMS: As per HPI, all other systems reviewed are negative. PHYSICAL EXAMINATION: GENERAL: On examination, alert, oriented female, not in distress. VITAL SIGNS: Stable, afebrile. HEENT: NAD. NECK: Supple. No JVP, no lymphadenopathy. LUNGS: Clear. HEART: S1, S2 regular. ABDOMEN: Benign. EXTREMITIES: Bilateral pitting edema present. The patient does have lymphedema. The patient does have multiple polypoid lesions on the leg, which she says years ago she has seen a soaker soda worker and a surgeon, but has not seen lately. The patient does have some erythema of the leg. SKIN: Rest of the skin examination is unremarkable. NEUROLOGIC: The patient is neurologically intact. LABORATORY DATA: White count was 19,000 yesterday on admission, now down to 10,000. BUN 29 and creatinine 1.5. Urinalysis showed 11-20 wbcs. MRSA screen was negative. Chest x-ray is unremarkable. IMPRESSION: 1. Fever and chills. No fever yet noted here. 2. Leukocytosis. 3. Cellulitis of the leg, complicated by lymphedema. 4. Diabetes. 5. Hypertension. RECOMMENDATIONS: I am going to switch over Zosyn to cefazolin and soon to be able to discharge on Keflex, maybe tomorrow. Thank you very much, Dr. Dennis, for giving me the opportunity to participate in this patient's care. EDUARDO RIZVI MD DR: TERRI/marybel JOB#: [id number] / [id number]
[2017-01-10 11:00] VITALS: BP 91/42
--- NOTE | 2017-01-10 12:58 | PDOC ---
PROGRESS NOTES Chief Complaint Chief Complaint 1.right leg recurrent cellulitis with bl leg lymphedema 2. sepsis with 1 htn hld GERD ckd3 with h/o nephrectomy h/o cervical Ca bl leg chronic lymphedema morbid obesity hypothyroidism severe hearing loss mild dementia bronchitis plan: id consulted, change zosyn to ancef. cont home meds duoneb, check sputum, check flu neg PTOT dvt ppx wound care hope dc tmr History of Present Illness History of Present Illness right leg erythema slightly better wbc better still cough Vitals Vitals Vital Signs Date Time Temp Pulse Resp B/P (MAP) Pulse Ox O2 Delivery O2 Flow Rate FiO2 01/10/17 11:41 Room Air 01/10/17 11:00 97.7 67 18 91/42 (58) 98 97.7 Physical Exam General: Alert, Oriented X3, Cooperative Heart: Regular rate, Normal S1, Normal S2 Lungs: Clear Abdomen: Normal bowel sounds, Soft Extremities: No clubbing, Other (bl leg chronic lymphedema, right leg has many warts, and swelling and erythema) Skin: No breakdown Labs LABS Laboratory Tests Test 01/09/17 13:26 01/09/17 13:44 01/09/17 17:35 01/09/17 21:45 White Blood Count 19.8 x10^3/uL (4.0-11.0) Red Blood Count 4.05 x10^6/uL (3.50-5.40) Hemoglobin 12.2 g/dL (12.0-15.5) Hematocrit 37.2 % (36.0-47.0) Mean Corpuscular Volume 92 fL (79-100) Mean Corpuscular Hemoglobin 30 pg (25-35) Mean Corpuscular Hemoglobin Concent 33 g/dL (31-37) Red Cell Distribution Width 15.4 % (11.5-14.5) Platelet Count 207 x10^3/uL (140-400) Neutrophils (%) (Auto) 91 % (31-73) Lymphocytes (%) (Auto) 6 % (24-48) Monocytes (%) (Auto) 2 % (0-9) Eosinophils (%) (Auto) 0 % (0-3) Basophils (%) (Auto) 0 % (0-3) Neutrophils # (Auto) 18.0 x10^3uL (1.8-7.7) Lymphocytes # (Auto) 1.2 x10^3/uL (1.0-4.8) Monocytes # (Auto) 0.4 x10^3/uL (0.0-1.1) Eosinophils # (Auto) 0.0 x10^3/uL (0.0-0.7) Basophils # (Auto) 0.1 x10^3/uL (0.0-0.2) Segmented Neutrophils % 82 % (35-66) Band Neutrophils % 8 % (0-9) Lymphocytes % 8 % (24-48) Atypical Lymphocytes % (Manual) 1 % (0-0) Monocytes % 1 % (0-10) Platelet Estimate Adequate (ADEQUATE) Prothrombin Time 12.8 SEC (11.7-14.0) Prothromb Time International Ratio 1.0 (0.8-1.1) Activated Partial Thromboplast Time 33 SEC (24-38) Sodium Level 139 mmol/L (136-145) Potassium Level 4.3 mmol/L (3.5-5.1) Chloride Level 101 mmol/L (98-107) Carbon Dioxide Level 27 mmol/L (21-32) Anion Gap 11 (6-14) Blood Urea Nitrogen 30 mg/dL (7-20) Creatinine 1.4 mg/dL (0.6-1.0) Estimated GFR (Cockcroft-Gault) 35.7 Glucose Level 118 mg/dL (70-99) Lactic Acid Level 1.5 mmol/L (0.4-2.0) Calcium Level 8.7 mg/dL (8.5-10.1) Total Bilirubin 0.5 mg/dL (0.2-1.0) Direct Bilirubin 0.1 mg/dL (0.0-0.2) Aspartate Amino Transf (AST/SGOT) 20 U/L (15-37) Alanine Aminotransferase (ALT/SGPT) 17 U/L (14-59) Alkaline Phosphatase 83 U/L (46-116) Creatine Kinase 64 U/L (26-192) Creatine Kinase MB (Mass) 0.6 ng/mL (0.0-3.6) Creatine Kinase MB Relative Index % (0-4) Troponin I Quantitative < 0.017 ng/mL (0.000-0.055) < 0.017 ng/mL (0.000-0.055) Total Protein 7.0 g/dL (6.4-8.2) Albumin 3.4 g/dL (3.4-5.0) Urine Collection Type Unknown Urine Color Straw Urine Clarity Cloudy Urine pH 6.5 Urine Specific [place] 1.015 Urine Protein Negative mg/dL (NEG-TRACE) Urine Glucose (UA) Negative mg/dL (NEG) Urine Ketones (Stick) Negative mg/dL (NEG) Urine Blood Negative (NEG) Urine Nitrite Negative (NEG) Urine Bilirubin Negative (NEG) Urine Urobilinogen Dipstick 0.2 mg/dL (0.2 mg/dL) Urine Leukocyte Esterase Large (NEG) Urine RBC Occ /HPF (0-2) Urine WBC 11-20 /HPF (0-4) Urine Squamous Epithelial Cells Occ /LPF Urine Bacteria Many /HPF (0-FEW) Influenza Type A Antigen Negative (NEGATIVE) Influenza Type B Antigen Negative (NEGATIVE) Test 01/10/17 05:35 White Blood Count 10.5 x10^3/uL (4.0-11.0) Red Blood Count 3.77 x10^6/uL (3.50-5.40) Hemoglobin 11.3 g/dL (12.0-15.5) Hematocrit 34.4 % (36.0-47.0) Mean Corpuscular Volume 91 fL (79-100) Mean Corpuscular Hemoglobin 30 pg (25-35) Mean Corpuscular Hemoglobin Concent 33 g/dL (31-37) Red Cell Distribution Width 15.2 % (11.5-14.5) Platelet Count 178 x10^3/uL (140-400) Neutrophils (%) (Auto) 76 % (31-73) Lymphocytes (%) (Auto) 14 % (24-48) Monocytes (%) (Auto) 7 % (0-9) Eosinophils (%) (Auto) 2 % (0-3) Basophils (%) (Auto) 0 % (0-3) Neutrophils # (Auto) 8.0 x10^3uL (1.8-7.7) Lymphocytes # (Auto) 1.5 x10^3/uL (1.0-4.8) Monocytes # (Auto) 0.8 x10^3/uL (0.0-1.1) Eosinophils # (Auto) 0.2 x10^3/uL (0.0-0.7) Basophils # (Auto) 0.0 x10^3/uL (0.0-0.2) Sodium Level 143 mmol/L (136-145) Potassium Level 4.0 mmol/L (3.5-5.1) Chloride Level 106 mmol/L (98-107) Carbon Dioxide Level 30 mmol/L (21-32) Anion Gap 7 (6-14) Blood Urea Nitrogen 29 mg/dL (7-20) Creatinine 1.5 mg/dL (0.6-1.0) Estimated GFR (Cockcroft-Gault) 33.0 Glucose Level 105 mg/dL (70-99) Calcium Level 8.5 mg/dL (8.5-10.1) Troponin I Quantitative < 0.017 ng/mL (0.000-0.055) Assessment and Plan Assessmemt and Plan Problems Medical Problems: (1) Cellulitis Status: Acute Problems: Comment Review of Relevant I have reviewed the following items javan (where applicable) has been applied. Labs Laboratory Tests Test 01/09/17 13:26 01/09/17 13:44 01/09/17 17:35 01/09/17 21:45 White Blood Count 19.8 x10^3/uL (4.0-11.0) Red Blood Count 4.05 x10^6/uL (3.50-5.40) Hemoglobin 12.2 g/dL (12.0-15.5) Hematocrit 37.2 % (36.0-47.0) Mean Corpuscular Volume 92 fL (79-100) Mean Corpuscular Hemoglobin 30 pg (25-35) Mean Corpuscular Hemoglobin Concent 33 g/dL (31-37) Red Cell Distribution Width 15.4 % (11.5-14.5) Platelet Count 207 x10^3/uL (140-400) Neutrophils (%) (Auto) 91 % (31-73) Lymphocytes (%) (Auto) 6 % (24-48) Monocytes (%) (Auto) 2 % (0-9) Eosinophils (%) (Auto) 0 % (0-3) Basophils (%) (Auto) 0 % (0-3) Neutrophils # (Auto) 18.0 x10^3uL (1.8-7.7) Lymphocytes # (Auto) 1.2 x10^3/uL (1.0-4.8) Monocytes # (Auto) 0.4 x10^3/uL (0.0-1.1) Eosinophils # (Auto) 0.0 x10^3/uL (0.0-0.7) Basophils # (Auto) 0.1 x10^3/uL (0.0-0.2) Segmented Neutrophils % 82 % (35-66) Band Neutrophils % 8 % (0-9) Lymphocytes % 8 % (24-48) Atypical Lymphocytes % (Manual) 1 % (0-0) Monocytes % 1 % (0-10) Platelet Estimate Adequate (ADEQUATE) Prothrombin Time 12.8 SEC (11.7-14.0) Prothromb Time International Ratio 1.0 (0.8-1.1) Activated Partial Thromboplast Time 33 SEC (24-38) Sodium Level 139 mmol/L (136-145) Potassium Level 4.3 mmol/L (3.5-5.1) Chloride Level 101 mmol/L (98-107) Carbon Dioxide Level 27 mmol/L (21-32) Anion Gap 11 (6-14) Blood Urea Nitrogen 30 mg/dL (7-20) Creatinine 1.4 mg/dL (0.6-1.0) Estimated GFR (Cockcroft-Gault) 35.7 Glucose Level 118 mg/dL (70-99) Lactic Acid Level 1.5 mmol/L (0.4-2.0) Calcium Level 8.7 mg/dL (8.5-10.1) Total Bilirubin 0.5 mg/dL (0.2-1.0) Direct Bilirubin 0.1 mg/dL (0.0-0.2) Aspartate Amino Transf (AST/SGOT) 20 U/L (15-37) Alanine Aminotransferase (ALT/SGPT) 17 U/L (14-59) Alkaline Phosphatase 83 U/L (46-116) Creatine Kinase 64 U/L (26-192) Creatine Kinase MB (Mass) 0.6 ng/mL (0.0-3.6) Creatine Kinase MB Relative Index % (0-4) Troponin I Quantitative < 0.017 ng/mL (0.000-0.055) < 0.017 ng/mL (0.000-0.055) Total Protein 7.0 g/dL (6.4-8.2) Albumin 3.4 g/dL (3.4-5.0) Urine Collection Type Unknown Urine Color Straw Urine Clarity Cloudy Urine pH 6.5 Urine Specific [place] 1.015 Urine Protein Negative mg/dL (NEG-TRACE) Urine Glucose (UA) Negative mg/dL (NEG) Urine Ketones (Stick) Negative mg/dL (NEG) Urine Blood Negative (NEG) Urine Nitrite Negative (NEG) Urine Bilirubin Negative (NEG) Urine Urobilinogen Dipstick 0.2 mg/dL (0.2 mg/dL) Urine Leukocyte Esterase Large (NEG) Urine RBC Occ /HPF (0-2) Urine WBC 11-20 /HPF (0-4) Urine Squamous Epithelial Cells Occ /LPF Urine Bacteria Many /HPF (0-FEW) Influenza Type A Antigen Negative (NEGATIVE) Influenza Type B Antigen Negative (NEGATIVE) Test 01/10/17 05:35 White Blood Count 10.5 x10^3/uL (4.0-11.0) Red Blood Count 3.77 x10^6/uL (3.50-5.40) Hemoglobin 11.3 g/dL (12.0-15.5) Hematocrit 34.4 % (36.0-47.0) Mean Corpuscular Volume 91 fL (79-100) Mean Corpuscular Hemoglobin 30 pg (25-35) Mean Corpuscular Hemoglobin Concent 33 g/dL (31-37) Red Cell Distribution Width 15.2 % (11.5-14.5) Platelet Count 178 x10^3/uL (140-400) Neutrophils (%) (Auto) 76 % (31-73) Lymphocytes (%) (Auto) 14 % (24-48) Monocytes (%) (Auto) 7 % (0-9) Eosinophils (%) (Auto) 2 % (0-3) Basophils (%) (Auto) 0 % (0-3) Neutrophils # (Auto) 8.0 x10^3uL (1.8-7.7) Lymphocytes # (Auto) 1.5 x10^3/uL (1.0-4.8) Monocytes # (Auto) 0.8 x10^3/uL (0.0-1.1) Eosinophils # (Auto) 0.2 x10^3/uL (0.0-0.7) Basophils # (Auto) 0.0 x10^3/uL (0.0-0.2) Sodium Level 143 mmol/L (136-145) Potassium Level 4.0 mmol/L (3.5-5.1) Chloride Level 106 mmol/L (98-107) Carbon Dioxide Level 30 mmol/L (21-32) Anion Gap 7 (6-14) Blood Urea Nitrogen 29 mg/dL (7-20) Creatinine 1.5 mg/dL (0.6-1.0) Estimated GFR (Cockcroft-Gault) 33.0 Glucose Level 105 mg/dL (70-99) Calcium Level 8.5 mg/dL (8.5-10.1) Troponin I Quantitative < 0.017 ng/mL (0.000-0.055) Laboratory Tests Test 01/09/17 13:26 01/09/17 13:44 01/09/17 17:35 01/09/17 21:45 White Blood Count 19.8 x10^3/uL (4.0-11.0) Red Blood Count 4.05 x10^6/uL (3.50-5.40) Hemoglobin 12.2 g/dL (12.0-15.5) Hematocrit 37.2 % (36.0-47.0) Mean Corpuscular Volume 92 fL (79-100) Mean Corpuscular Hemoglobin 30 pg (25-35) Mean Corpuscular Hemoglobin Concent 33 g/dL (31-37) Red Cell Distribution Width 15.4 % (11.5-14.5) Platelet Count 207 x10^3/uL (140-400) Neutrophils (%) (Auto) 91 % (31-73) Lymphocytes (%) (Auto) 6 % (24-48) Monocytes (%) (Auto) 2 % (0-9) Eosinophils (%) (Auto) 0 % (0-3) Basophils (%) (Auto) 0 % (0-3) Neutrophils # (Auto) 18.0 x10^3uL (1.8-7.7) Lymphocytes # (Auto) 1.2 x10^3/uL (1.0-4.8) Monocytes # (Auto) 0.4 x10^3/uL (0.0-1.1) Eosinophils # (Auto) 0.0 x10^3/uL (0.0-0.7) Basophils # (Auto) 0.1 x10^3/uL (0.0-0.2) Segmented Neutrophils % 82 % (35-66) Band Neutrophils % 8 % (0-9) Lymphocytes % 8 % (24-48) Atypical Lymphocytes % (Manual) 1 % (0-0) Monocytes % 1 % (0-10) Platelet Estimate Adequate (ADEQUATE) Prothrombin Time 12.8 SEC (11.7-14.0) Prothromb Time International Ratio 1.0 (0.8-1.1) Activated Partial Thromboplast Time 33 SEC (24-38) Sodium Level 139 mmol/L (136-145) Potassium Level 4.3 mmol/L (3.5-5.1) Chloride Level 101 mmol/L (98-107) Carbon Dioxide Level 27 mmol/L (21-32) Anion Gap 11 (6-14) Blood Urea Nitrogen 30 mg/dL (7-20) Creatinine 1.4 mg/dL (0.6-1.0) Estimated GFR (Cockcroft-Gault) 35.7 Glucose Level 118 mg/dL (70-99) Lactic Acid Level 1.5 mmol/L (0.4-2.0) Calcium Level 8.7 mg/dL (8.5-10.1) Total Bilirubin 0.5 mg/dL (0.2-1.0) Direct Bilirubin 0.1 mg/dL (0.0-0.2) Aspartate Amino Transf (AST/SGOT) 20 U/L (15-37) Alanine Aminotransferase (ALT/SGPT) 17 U/L (14-59) Alkaline Phosphatase 83 U/L (46-116) Creatine Kinase 64 U/L (26-192) Creatine Kinase MB (Mass) 0.6 ng/mL (0.0-3.6) Creatine Kinase MB Relative Index % (0-4) Troponin I Quantitative < 0.017 ng/mL (0.000-0.055) < 0.017 ng/mL (0.000-0.055) Total Protein 7.0 g/dL (6.4-8.2) Albumin 3.4 g/dL (3.4-5.0) Urine Collection Type Unknown Urine Color Straw Urine Clarity Cloudy Urine pH 6.5 Urine Specific [place] 1.015 Urine Protein Negative mg/dL (NEG-TRACE) Urine Glucose (UA) Negative mg/dL (NEG) Urine Ketones (Stick) Negative mg/dL (NEG) Urine Blood Negative (NEG) Urine Nitrite Negative (NEG) Urine Bilirubin Negative (NEG) Urine Urobilinogen Dipstick 0.2 mg/dL (0.2 mg/dL) Urine Leukocyte Esterase Large (NEG) Urine RBC Occ /HPF (0-2) Urine WBC 11-20 /HPF (0-4) Urine Squamous Epithelial Cells Occ /LPF Urine Bacteria Many /HPF (0-FEW) Influenza Type A Antigen Negative (NEGATIVE) Influenza Type B Antigen Negative (NEGATIVE) Test 01/10/17 05:35 White Blood Count 10.5 x10^3/uL (4.0-11.0) Red Blood Count 3.77 x10^6/uL (3.50-5.40) Hemoglobin 11.3 g/dL (12.0-15.5) Hematocrit 34.4 % (36.0-47.0) Mean Corpuscular Volume 91 fL (79-100) Mean Corpuscular Hemoglobin 30 pg (25-35) Mean Corpuscular Hemoglobin Concent 33 g/dL (31-37) Red Cell Distribution Width 15.2 % (11.5-14.5) Platelet Count 178 x10^3/uL (140-400) Neutrophils (%) (Auto) 76 % (31-73) Lymphocytes (%) (Auto) 14 % (24-48) Monocytes (%) (Auto) 7 % (0-9) Eosinophils (%) (Auto) 2 % (0-3) Basophils (%) (Auto) 0 % (0-3) Neutrophils # (Auto) 8.0 x10^3uL (1.8-7.7) Lymphocytes # (Auto) 1.5 x10^3/uL (1.0-4.8) Monocytes # (Auto) 0.8 x10^3/uL (0.0-1.1) Eosinophils # (Auto) 0.2 x10^3/uL (0.0-0.7) Basophils # (Auto) 0.0 x10^3/uL (0.0-0.2) Sodium Level 143 mmol/L (136-145) Potassium Level 4.0 mmol/L (3.5-5.1) Chloride Level 106 mmol/L (98-107) Carbon Dioxide Level 30 mmol/L (21-32) Anion Gap 7 (6-14) Blood Urea Nitrogen 29 mg/dL (7-20) Creatinine 1.5 mg/dL (0.6-1.0) Estimated GFR (Cockcroft-Gault) 33.0 Glucose Level 105 mg/dL (70-99) Calcium Level 8.5 mg/dL (8.5-10.1) Troponin I Quantitative < 0.017 ng/mL (0.000-0.055) Microbiology 01/09/17 Gram Stain - Final, Complete Medications Current Medications Acetaminophen (Tylenol) 1,000 mg 1X ONCE PO Last administered on 01/09/17 14: 00; Start 01/09/17 at 14:00; Stop 01/09/17 at 14:01; Status DC Piperacillin Sod/ Tazobactam Sod (Zosyn Per Pharmacy) 1 each PRN DAILY PRN MC SEE COMMENTS; Start 01/09/17 at 16:15 Piperacillin Sod/ Tazobactam Sod 2.25 gm/Sodium Chloride 50 ml @ 100 mls/hr Q6HRS IV Last administered on 01/10/17 06:02; Start 01/09/17 at 17:00; Stop at 09:52; Status DC Allopurinol (Zyloprim) 100 mg DAILY PO Last administered on 01/10/17 09:31; Start 01/09/17 at 17:30 Aspirin (Ecotrin) 81 mg DAILY08 PO Last administered on 01/10/17 09:29; Start 01/09/17 at 17:30 Citalopram Hydrobromide (CeleXA) 10 mg DAILY PO Last administered on 01/10/17 09:30; Start 01/09/17 at 17:30 Furosemide (Lasix) 40 mg DAILY PO Last administered on 01/10/17 09:30; Start 01/09/17 at 17:30 Levothyroxine Sodium (Synthroid) 75 mcg DAILY07 PO Last administered on 06:02; Start 01/09/17 at 17:30 Pantoprazole Sodium (Protonix) 40 mg DAILY07 PO Last administered on 01/10/17 06:03; Start 01/09/17 at 17:30 Simvastatin (Zocor) 80 mg QHS PO Last administered on 01/09/17 21:06; Start at 21:00 Acetaminophen (Tylenol) 650 mg PRN Q6HRS PRN PO FEVER Last administered on 01/10 09:31; Start 01/09/17 at 17:00 Ondansetron HCl (Zofran) 4 mg PRN Q6HRS PRN IV NAUSEA/VOMITING; Start 01/09/17 at 17:00 Morphine Sulfate 2 mg PRN Q2HR PRN IV PAIN; Start 01/09/17 at 17:00 Tramadol HCl (Ultram) 50 mg PRN Q6HRS PRN PO PAIN; Start 01/09/17 at 17:00 Hydralazine HCl (Apresoline) 10 mg PRN Q4HRS PRN IVP ELEVATED BP, SEE COMMENTS ; Start 01/09/17 at 17:00 Docusate Sodium (Colace) 100 mg PRN DAILY PRN PO CONSTIPATION; Start 01/09/17 at 17:00 Heparin Sodium (Porcine) (Heparin Sq) 5,000 unit Q8HRS SQ Last administered on 01/09/17 22:19; Start 01/09/17 at 22:00 Albuterol/ Ipratropium (Duoneb) 3 ml RTQID NEB Last administered on 01/10/17 11:41; Start 01/09/17 at 20:00 Albuterol Sulfate (Ventolin Neb Soln) 2.5 mg PRN Q2HR PRN NEB SHORTNESS OF BREATH; Start 01/09/17 at 17:00 Guaifenesin (Mucinex) 600 mg BID PO Last administered on 01/10/17 09:30; Start 01/09/17 at 21:00 Cefazolin Sodium 1 gm/Sodium Chloride 50 ml @ 100 mls/hr Q8HRS IV ; Start 01/10 at 14:00 Active Scripts Active Reported Celexa (Citalopram Hydrobromide) 10 Mg Tablet 10 Mg PO DAILY Allopurinol 100 Mg Tablet 100 Mg PO DAILY Pantoprazole Sodium 40 Mg Tablet. 40 Mg PO DAILY Aspir-Low (Aspirin) 81 Mg Tablet. 1 Tab PO DAILY Levothyroxine Sodium 75 Mcg Tablet 1 Tab PO DAILY Simvastatin 80 Mg Tablet 1 Tab PO QHS Furosemide 40 Mg Tablet 1 Tab PO DAILY Vitals/I & O Vital Sign - Last 24 Hours 01/09/17 01/09/17 01/09/17 01/09/17 13:07 13:45 14:00 14:45 Temp 98.0 98.0 Pulse 81 78 76 70 Resp 20 22 22 18 B/P (MAP) 134/61 (85) 137/60 (85) 141/63 (89) 130/60 (83) Pulse Ox 95 97 96 O2 Delivery Room Air Room Air Room Air Room Air 01/09/17 01/09/17 01/09/17 01/09/17 15:58 16:30 19:00 20:00 Temp 97.7 97.5 97.7 97.5 Pulse 70 77 Resp 16 18 B/P (MAP) 111/42 (65) 126/51 (76) Pulse Ox 90 95 O2 Delivery Room Air Room Air Room Air Room Air 01/09/17 01/09/17 01/10/17 01/10/17 20:06 23:07 03:00 07:00 Temp 97.9 97.7 96.4 97.9 97.7 96.4 Pulse 78 71 73 Resp 18 18 18 B/P (MAP) 129/48 (75) 130/52 (78) 110/42 (64) Pulse Ox 97 95 96 95 O2 Delivery Room Air Room Air Room Air Room Air 01/10/17 01/10/17 01/10/17 07:47 11:00 11:41 Temp 97.7 97.7 Pulse 67 Resp 18 B/P (MAP) 91/42 (58) Pulse Ox 98 O2 Delivery Room Air Room Air Room Air Intake and Output 01/09/17 01/09/17 01/10/17 14:59 22:59 06:59 Intake Total 500 ml Output Total 0 ml Balance 500 ml 0 ml ISAURA ABBOTT MD Jan 10, 2017 12:58
[2017-01-10 15:00] VITALS: BP 103/40
[2017-01-10 19:00] VITALS: BP 133/57
[2017-01-10] MEDS: SIMVASTATIN 40 MG TABLET. PO SCH (20:53)
[2017-01-10 22:33] VITALS: BP 117/52
[2017-01-11 02:46] VITALS: BP 103/58
[2017-01-11] MEDS: HEPARIN PF for SUB-Q USE 5,000 UNIT/0.5 ML VIAL. SQ SCH ×2 (05:26→13:28)
[2017-01-11] MEDS: ACETAMINOPHEN 325 MG TABLET. PO PRN (05:28)
[2017-01-11] MEDS: PANTOPRAZOLE 40 MG TABLET.DR. PO SCH (06:04)
[2017-01-11] MEDS: LEVOTHYROXINE 75 MCG TABLET PO SCH (06:04)
[2017-01-11 07:00] VITALS: BP 145/64
[2017-01-11] MEDS: IPRATRPIUM/ALBUTEROL 0.5/2.5MG 3 ML NEBU. NEB SCH ×2 (07:11→11:08)
[2017-01-11 07:20] LABS: BASO % 0 % (0-3); EOS % 5 % (0-3); HEMOGLOBIN 11.3 g/dL (12.0-15.5); LYMPH % 15 % (24-48); MEAN CORPUSCULAR HEMOGLOBIN 30 pg (25-35); MEAN CORPUSCULAR HGB CONC 32 g/dL (31-37); MEAN CORPUSCULAR VOLUME 92 fL (79-100); MONO % 8 % (0-9); NEUT % 72 % (31-73); PLATELET COUNT 200 x10^3/uL (140-400); RED BLOOD COUNT 3.81 x10^6/uL (3.50-5.40); RED CELL DISTRIBUTION WIDTH 15.6 % (11.5-14.5)
[2017-01-11 07:31] LABS: CALCIUM 8.7 mg/dL (8.5-10.1); CREATININE 1.7 mg/dL (0.6-1.0); GFR 28.6; POTASSIUM 3.6 mmol/L (3.5-5.1)
[2017-01-11] MEDS: ASPIRIN ENTERIC COATED 81 MG TABLET.DR. PO SCH (08:17)
[2017-01-11] MEDS: FUROSEMIDE 40 MG TABLET. PO SCH (08:18)
[2017-01-11] MEDS: ALLOPURINOL 100 MG TABLET. PO SCH (08:18)
[2017-01-11] MEDS: CITALOPRAM 10 MG TABLET. PO SCH (08:18)
--- NOTE | 2017-01-11 09:57 | PDOC ---
Infectious Disease Note Subjective Subjective feeling good ROS ROS GEN: Denies fevers, chills, sweats HEENT: Denies blurred vision, sore throat CV: Denies chest pain RESP: Denies shortness of air, cough GI: Denies n/v/d NEURO: Denies confusion, dizziness MSK: Denies weakness, joint pain/swelling Vital Sign Vital Signs Vital Signs Date Time Temp Pulse Resp B/P (MAP) Pulse Ox O2 Delivery O2 Flow Rate FiO2 01/11/17 07:45 Room Air 01/11/17 07:11 96 01/11/17 07:00 96.1 72 18 145/64 (91) 96.1 Physical Exam PHYSICAL EXAM GENERAL: NAD, Alert HEENT: PERRL, OC/OP NECK: Supple, no JVD, no LN LUNGS: Clear HEART: S1S2, no gallop, no murmur ABD: Soft, NT, no organomegaly, no rebound EXT: No edema, no cyanosis,, leg redness better, multiple polypoid skin lesions + [employer]: Alert, oriented x 3, no focal neurologic deficit SKIN: No rash IV: ok Labs Lab Laboratory Tests Test 01/11/17 07:00 White Blood Count 7.0 x10^3/uL (4.0-11.0) Red Blood Count 3.81 x10^6/uL (3.50-5.40) Hemoglobin 11.3 g/dL (12.0-15.5) Hematocrit 35.0 % (36.0-47.0) Mean Corpuscular Volume 92 fL (79-100) Mean Corpuscular Hemoglobin 30 pg (25-35) Mean Corpuscular Hemoglobin Concent 32 g/dL (31-37) Red Cell Distribution Width 15.6 % (11.5-14.5) Platelet Count 200 x10^3/uL (140-400) Neutrophils (%) (Auto) 72 % (31-73) Lymphocytes (%) (Auto) 15 % (24-48) Monocytes (%) (Auto) 8 % (0-9) Eosinophils (%) (Auto) 5 % (0-3) Basophils (%) (Auto) 0 % (0-3) Neutrophils # (Auto) 5.1 x10^3uL (1.8-7.7) Lymphocytes # (Auto) 1.0 x10^3/uL (1.0-4.8) Monocytes # (Auto) 0.6 x10^3/uL (0.0-1.1) Eosinophils # (Auto) 0.3 x10^3/uL (0.0-0.7) Basophils # (Auto) 0.0 x10^3/uL (0.0-0.2) Sodium Level 143 mmol/L (136-145) Potassium Level 3.6 mmol/L (3.5-5.1) Chloride Level 105 mmol/L (98-107) Carbon Dioxide Level 29 mmol/L (21-32) Anion Gap 9 (6-14) Blood Urea Nitrogen 31 mg/dL (7-20) Creatinine 1.7 mg/dL (0.6-1.0) Estimated GFR (Cockcroft-Gault) 28.6 Glucose Level 108 mg/dL (70-99) Calcium Level 8.7 mg/dL (8.5-10.1) Objective Assessment Fever and chills at home Leukocytosis Rt leg cellulitis Lymphedema Plan Plan of Care d/c soon on po keflex, unless surgery wants to do surgical resection supportive care d/w dr Chou, he will see pt EDUARDO RIZVI MD Jan 11, 2017 09:57
[2017-01-11] MEDS ORDERED: CEPH250C PO (10:25)
[2017-01-11 11:00] VITALS: BP 107/58
--- NOTE | 2017-01-11 11:43 | PDOC2 ---
LUIS F WILLIAMSON [employer] SU[employer]OR 01/11/17 1143: CONSULT Date of Consult Date of Consult DATE: 01/11/17 TIME: 11:34 Reason for Consult Reason for Consult: skin lesions Referring Physician Referring Physician: Dr Sagastume Identification/Chief Complaint Chief Complaint leg redness Problems: Source Source: Chart review, Patient History of Present Illness Reason for Visit: ongoing problems with lymphedema, cellulitis. Follow with Dr Sagastume for antibiotics. Came in with weakness, redness to leg. Multiple polypoid lesions to lower Past Medical History Cardiovascular: HTN, Hyperlipidemia GI: GERD Rheumatologic: Gout Renal/: Chronic renal failure Endocrine: Hypothyroidism Past Surgical History Past Surgical History: Hysterectomy Family History Family History: Hypertension Social History No ALCOHOL: none Drugs: None Lives: with Family Current Problem List Problem List Problems Medical Problems: (1) Cellulitis Status: Acute Current Medications Current Medications Current Medications Acetaminophen (Tylenol) 1,000 mg 1X ONCE PO Last administered on 01/09/17 14: 00; Start 01/09/17 at 14:00; Stop 01/09/17 at 14:01; Status DC Piperacillin Sod/ Tazobactam Sod (Zosyn Per Pharmacy) 1 each PRN DAILY PRN MC SEE COMMENTS; Start 01/09/17 at 16:15; Stop 01/10/17 at 12:58; Status DC Piperacillin Sod/ Tazobactam Sod 2.25 gm/Sodium Chloride 50 ml @ 100 mls/hr Q6HRS IV Last administered on 01/10/17 06:02; Start 01/09/17 at 17:00; Stop at 09:52; Status DC Allopurinol (Zyloprim) 100 mg DAILY PO Last administered on 01/11/17 08:18; Start 01/09/17 at 17:30 Aspirin (Ecotrin) 81 mg DAILY08 PO Last administered on 01/11/17 08:17; Start 01/09/17 at 17:30 Citalopram Hydrobromide (CeleXA) 10 mg DAILY PO Last administered on 01/11/17 08:18; Start 01/09/17 at 17:30 Furosemide (Lasix) 40 mg DAILY PO Last administered on 01/11/17 08:18; Start 01/09/17 at 17:30 Levothyroxine Sodium (Synthroid) 75 mcg DAILY07 PO Last administered on 06:04; Start 01/09/17 at 17:30 Pantoprazole Sodium (Protonix) 40 mg DAILY07 PO Last administered on 01/11/17 06:04; Start 01/09/17 at 17:30 Simvastatin (Zocor) 80 mg QHS PO Last administered on 01/10/17 20:53; Start at 21:00 Acetaminophen (Tylenol) 650 mg PRN Q6HRS PRN PO FEVER Last administered on 01/11 05:28; Start 01/09/17 at 17:00 Ondansetron HCl (Zofran) 4 mg PRN Q6HRS PRN IV NAUSEA/VOMITING; Start 01/09/17 at 17:00 Morphine Sulfate 2 mg PRN Q2HR PRN IV PAIN; Start 01/09/17 at 17:00 Tramadol HCl (Ultram) 50 mg PRN Q6HRS PRN PO PAIN Last administered on 06:04; Start 01/09/17 at 17:00 Hydralazine HCl (Apresoline) 10 mg PRN Q4HRS PRN IVP ELEVATED BP, SEE COMMENTS ; Start 01/09/17 at 17:00 Docusate Sodium (Colace) 100 mg PRN DAILY PRN PO CONSTIPATION; Start 01/09/17 at 17:00 Heparin Sodium (Porcine) (Heparin Sq) 5,000 unit Q8HRS SQ Last administered on 01/09/17 22:19; Start 01/09/17 at 22:00 Albuterol/ Ipratropium (Duoneb) 3 ml RTQID NEB Last administered on 01/11/17 11:08; Start 01/09/17 at 20:00 Albuterol Sulfate (Ventolin Neb Soln) 2.5 mg PRN Q2HR PRN NEB SHORTNESS OF BREATH; Start 01/09/17 at 17:00 Guaifenesin (Mucinex) 600 mg BID PO Last administered on 01/11/17 08:18; Start 01/09/17 at 21:00 Cefazolin Sodium 1 gm/Sodium Chloride 50 ml @ 100 mls/hr Q8HRS IV Last administered on 01/11/17 05:29; Start 01/10/17 at 14:00; Stop 01/11/17 at 09:58 ; Status DC Cephalexin HCl (Keflex) 500 mg QID PO ; Start 01/11/17 at 13:00 Active Scripts Active Cephalexin 250 Mg Capsule 500 Mg PO QID 7 Days Reported Celexa (Citalopram Hydrobromide) 10 Mg Tablet 10 Mg PO DAILY Allopurinol 100 Mg Tablet 100 Mg PO DAILY Pantoprazole Sodium 40 Mg Tablet.dr 40 Mg PO DAILY Aspir-Low (Aspirin) 81 Mg Tablet.dr 1 Tab PO DAILY Levothyroxine Sodium 75 Mcg Tablet 1 Tab PO DAILY Simvastatin 80 Mg Tablet 1 Tab PO QHS Furosemide 40 Mg Tablet 1 Tab PO DAILY Allergies Allergies: Coded Allergies: No Known Drug Allergies (Unverified , 03/02/14) ROS General: YES: Fatigue, No: Chills, Other (fevers) PSYCHOLOGICAL ROS: No: Anxiety, Depression Eyes: No Blurry vision, No Double vision HEENT: No: Heacaches, Sore Throat Hematological and Lymphatic: No: Bleeding Problems, Blood Clots Respiratory: No: Cough, Shortness of breath Cardiovascular: No Chest Pain, No Palpitations Gastrointestinal: No Nausea, No Vomiting Genitourinary: No Dysuria, No Hematuria Musculoskeletal: Yes Joint Pain, Yes Muscle Pain Neurological: No Confusion, No Numbness/Tingling Skin: Yes Other (see hpi) Physical Exam General: Alert, Oriented X3, Cooperative, No acute distress HEENT: PERRLA, Mucous membr. moist/pink Lungs: Clear to auscultation, Normal air movement Heart: Regular rate, Normal S1, Normal S2, No murmurs Abdomen: Soft, No tenderness Extremities: Other (mild erythema to lower legs, multiple large lesions to right leg, some area friable with bleeding ) Neuro: Normal speech, Sensation intact Psych/Mental Status: Mental status NL Vitals VITALS Vital Signs Date Time Temp Pulse Resp B/P (MAP) Pulse Ox O2 Delivery O2 Flow Rate FiO2 01/11/17 11:08 Room Air 01/11/17 11:00 97.7 72 18 107/58 (74) 99 97.7 Labs Labs Laboratory Tests Test 01/09/17 13:26 01/09/17 13:44 01/09/17 17:35 01/09/17 21:45 White Blood Count 19.8 x10^3/uL (4.0-11.0) Red Blood Count 4.05 x10^6/uL (3.50-5.40) Hemoglobin 12.2 g/dL (12.0-15.5) Hematocrit 37.2 % (36.0-47.0) Mean Corpuscular Volume 92 fL (79-100) Mean Corpuscular Hemoglobin 30 pg (25-35) Mean Corpuscular Hemoglobin Concent 33 g/dL (31-37) Red Cell Distribution Width 15.4 % (11.5-14.5) Platelet Count 207 x10^3/uL (140-400) Neutrophils (%) (Auto) 91 % (31-73) Lymphocytes (%) (Auto) 6 % (24-48) Monocytes (%) (Auto) 2 % (0-9) Eosinophils (%) (Auto) 0 % (0-3) Basophils (%) (Auto) 0 % (0-3) Neutrophils # (Auto) 18.0 x10^3uL (1.8-7.7) Lymphocytes # (Auto) 1.2 x10^3/uL (1.0-4.8) Monocytes # (Auto) 0.4 x10^3/uL (0.0-1.1) Eosinophils # (Auto) 0.0 x10^3/uL (0.0-0.7) Basophils # (Auto) 0.1 x10^3/uL (0.0-0.2) Segmented Neutrophils % 82 % (35-66) Band Neutrophils % 8 % (0-9) Lymphocytes % 8 % (24-48) Atypical Lymphocytes % (Manual) 1 % (0-0) Monocytes % 1 % (0-10) Platelet Estimate Adequate (ADEQUATE) Prothrombin Time 12.8 SEC (11.7-14.0) Prothromb Time International Ratio 1.0 (0.8-1.1) Activated Partial Thromboplast Time 33 SEC (24-38) Sodium Level 139 mmol/L (136-145) Potassium Level 4.3 mmol/L (3.5-5.1) Chloride Level 101 mmol/L (98-107) Carbon Dioxide Level 27 mmol/L (21-32) Anion Gap 11 (6-14) Blood Urea Nitrogen 30 mg/dL (7-20) Creatinine 1.4 mg/dL (0.6-1.0) Estimated GFR (Cockcroft-Gault) 35.7 Glucose Level 118 mg/dL (70-99) Lactic Acid Level 1.5 mmol/L (0.4-2.0) Calcium Level 8.7 mg/dL (8.5-10.1) Total Bilirubin 0.5 mg/dL (0.2-1.0) Direct Bilirubin 0.1 mg/dL (0.0-0.2) Aspartate Amino Transf (AST/SGOT) 20 U/L (15-37) Alanine Aminotransferase (ALT/SGPT) 17 U/L (14-59) Alkaline Phosphatase 83 U/L (46-116) Creatine Kinase 64 U/L (26-192) Creatine Kinase MB (Mass) 0.6 ng/mL (0.0-3.6) Creatine Kinase MB Relative Index % (0-4) Troponin I Quantitative < 0.017 ng/mL (0.000-0.055) < 0.017 ng/mL (0.000-0.055) Total Protein 7.0 g/dL (6.4-8.2) Albumin 3.4 g/dL (3.4-5.0) Urine Collection Type Unknown Urine Color Straw Urine Clarity Cloudy Urine pH 6.5 Urine Specific [place] 1.015 Urine Protein Negative mg/dL (NEG-TRACE) Urine Glucose (UA) Negative mg/dL (NEG) Urine Ketones (Stick) Negative mg/dL (NEG) Urine Blood Negative (NEG) Urine Nitrite Negative (NEG) Urine Bilirubin Negative (NEG) Urine Urobilinogen Dipstick 0.2 mg/dL (0.2 mg/dL) Urine Leukocyte Esterase Large (NEG) Urine RBC Occ /HPF (0-2) Urine WBC 11-20 /HPF (0-4) Urine Squamous Epithelial Cells Occ /LPF Urine Bacteria Many /HPF (0-FEW) Influenza Type A Antigen Negative (NEGATIVE) Influenza Type B Antigen Negative (NEGATIVE) Test 01/10/17 05:35 01/11/17 07:00 White Blood Count 10.5 x10^3/uL (4.0-11.0) 7.0 x10^3/uL (4.0-11.0) Red Blood Count 3.77 x10^6/uL (3.50-5.40) 3.81 x10^6/uL (3.50-5.40) Hemoglobin 11.3 g/dL (12.0-15.5) 11.3 g/dL (12.0-15.5) Hematocrit 34.4 % (36.0-47.0) 35.0 % (36.0-47.0) Mean Corpuscular Volume 91 fL (79-100) 92 fL (79-100) Mean Corpuscular Hemoglobin 30 pg (25-35) 30 pg (25-35) Mean Corpuscular Hemoglobin Concent 33 g/dL (31-37) 32 g/dL (31-37) Red Cell Distribution Width 15.2 % (11.5-14.5) 15.6 % (11.5-14.5) Platelet Count 178 x10^3/uL (140-400) 200 x10^3/uL (140-400) Neutrophils (%) (Auto) 76 % (31-73) 72 % (31-73) Lymphocytes (%) (Auto) 14 % (24-48) 15 % (24-48) Monocytes (%) (Auto) 7 % (0-9) 8 % (0-9) Eosinophils (%) (Auto) 2 % (0-3) 5 % (0-3) Basophils (%) (Auto) 0 % (0-3) 0 % (0-3) Neutrophils # (Auto) 8.0 x10^3uL (1.8-7.7) 5.1 x10^3uL (1.8-7.7) Lymphocytes # (Auto) 1.5 x10^3/uL (1.0-4.8) 1.0 x10^3/uL (1.0-4.8) Monocytes # (Auto) 0.8 x10^3/uL (0.0-1.1) 0.6 x10^3/uL (0.0-1.1) Eosinophils # (Auto) 0.2 x10^3/uL (0.0-0.7) 0.3 x10^3/uL (0.0-0.7) Basophils # (Auto) 0.0 x10^3/uL (0.0-0.2) 0.0 x10^3/uL (0.0-0.2) Sodium Level 143 mmol/L (136-145) 143 mmol/L (136-145) Potassium Level 4.0 mmol/L (3.5-5.1) 3.6 mmol/L (3.5-5.1) Chloride Level 106 mmol/L (98-107) 105 mmol/L (98-107) Carbon Dioxide Level 30 mmol/L (21-32) 29 mmol/L (21-32) Anion Gap 7 (6-14) 9 (6-14) Blood Urea Nitrogen 29 mg/dL (7-20) 31 mg/dL (7-20) Creatinine 1.5 mg/dL (0.6-1.0) 1.7 mg/dL (0.6-1.0) Estimated GFR (Cockcroft-Gault) 33.0 28.6 Glucose Level 105 mg/dL (70-99) 108 mg/dL (70-99) Calcium Level 8.5 mg/dL (8.5-10.1) 8.7 mg/dL (8.5-10.1) Troponin I Quantitative < 0.017 ng/mL (0.000-0.055) Laboratory Tests Test 01/11/17 07:00 White Blood Count 7.0 x10^3/uL (4.0-11.0) Red Blood Count 3.81 x10^6/uL (3.50-5.40) Hemoglobin 11.3 g/dL (12.0-15.5) Hematocrit 35.0 % (36.0-47.0) Mean Corpuscular Volume 92 fL (79-100) Mean Corpuscular Hemoglobin 30 pg (25-35) Mean Corpuscular Hemoglobin Concent 32 g/dL (31-37) Red Cell Distribution Width 15.6 % (11.5-14.5) Platelet Count 200 x10^3/uL (140-400) Neutrophils (%) (Auto) 72 % (31-73) Lymphocytes (%) (Auto) 15 % (24-48) Monocytes (%) (Auto) 8 % (0-9) Eosinophils (%) (Auto) 5 % (0-3) Basophils (%) (Auto) 0 % (0-3) Neutrophils # (Auto) 5.1 x10^3uL (1.8-7.7) Lymphocytes # (Auto) 1.0 x10^3/uL (1.0-4.8) Monocytes # (Auto) 0.6 x10^3/uL (0.0-1.1) Eosinophils # (Auto) 0.3 x10^3/uL (0.0-0.7) Basophils # (Auto) 0.0 x10^3/uL (0.0-0.2) Sodium Level 143 mmol/L (136-145) Potassium Level 3.6 mmol/L (3.5-5.1) Chloride Level 105 mmol/L (98-107) Carbon Dioxide Level 29 mmol/L (21-32) Anion Gap 9 (6-14) Blood Urea Nitrogen 31 mg/dL (7-20) Creatinine 1.7 mg/dL (0.6-1.0) Estimated GFR (Cockcroft-Gault) 28.6 Glucose Level 108 mg/dL (70-99) Calcium Level 8.7 mg/dL (8.5-10.1) Assessment/Plan Assessment/Plan cellulitis, chronic issues multiple polypoid lesions to right leg lymphedema--would complication wound healing will review with MARIBEL Roberts MD 01/11/17 1205: CONSULT Allergies Allergies: Coded Allergies: No Known Drug Allergies (Unverified , 03/02/14) Assessment/Plan Assessment/Plan Pt seen and examined. Agree with Ms. Williamson's note Pt with multiple polypoid benign appearing lesions of left anterior leg will fu in clinic and plan elective excisional biopsies Thanks for consult! LUIS F WILLIAMSON APRN Jan 11, 2017 11:43 MARIBEL BLAIR MD Jan 11, 2017 12:05
[2017-01-11] MEDS ORDERED: CEPHALEXIN 250 MG CAPSULE. PO SCH (13:00)
--- NOTE | 2017-01-11 13:06 | PDOC3 ---
Discharge Summary [facility] Date of Admission: Jan 09, 2017 Discharge Date: Jan 11, 2017 Admitting Diagnosis 1.right leg recurrent cellulitis with bl leg lymphedema 2. sepsis with 1 htn hld GERD ckd3 with h/o nephrectomy h/o cervical Ca bl leg chronic lymphedema morbid obesity hypothyroidism severe hearing loss mild dementia bronchitis Problems: Final Diagnosis CONSULTS sx id Brief Hospital Course Patient is a 86 year old female who presents with fevers chills and generalized weakness and decreased appetite over the last 24 hours. Pt was here for similar symptom in September, and was DCed by me, home with elly caldera. Pt has likely mild dementia, severe hearing loss, (need to shout to her at least too times to answer her questions), said she has been feeling some fever, chills, no T details, follows with dr. Sagastume for right leg cellulitis, and requires to see him again. She lives alone, refused HH last night, said coughing with some green sputum. Currently she denies any nausea vomiting diarrhea or abdominal pain. She states she's had her influenza and her pneumococcal vaccines. Pt leg improved with abx zosyn then cefazolin, sx consulted will do elective leg lesion bx as outpt. id consulted, dc home with keflex. dc time 35min. General: Alert, Oriented X3, Cooperative Heart: Regular rate, Normal S1, Normal S2 Lungs: Clear Abdomen: Normal bowel sounds, Soft Extremities: No clubbing, Other (bl leg chronic lymphedema, right leg has many polypoid lesions, and mild swelling and erythema) Skin: No breakdown Patient History: Diabetes mellitus 32 MOTHER G8 SISTER FH: heart disease G8 DAUGHTER FH: hemochromatosis G8 SISTER FH: lung cancer 33 FATHER FH: multiple sclerosis 32 MOTHER SIDS (sudden syndrome) G8 DAUGHTER Problems: Disposition home CONDITION AT DISCHARGE: Improved Diet regular Scheduled Allopurinol (Allopurinol), 100 MG PO DAILY, (Reported) Aspirin (Aspir-Low), 1 TAB PO DAILY, (Reported) Cephalexin (Cephalexin), 500 MG PO QID Citalopram Hydrobromide (Celexa), 10 MG PO DAILY, (Reported) Furosemide (Furosemide), 1 TAB PO DAILY, (Reported) Levothyroxine Sodium (Levothyroxine Sodium), 1 TAB PO DAILY, (Reported) Pantoprazole Sodium (Pantoprazole Sodium), 40 MG PO DAILY, (Reported) Simvastatin (Simvastatin), 1 TAB PO QHS, (Reported) Follow Up id and sx in 2 weeks ISAURA ABBOTT MD Jan 11, 2017 13:06
== END 2017-01-11 14:44 | disposition home or self-care (01) | DRG 872 ==
LOC: ER 12:40 → 5 NORTH 14:15
PROVIDERS: ADMIT Internal Medicine; ATTEND Internal Medicine
DX: A41.9 Sepsis, unspecified organism (principal); E11.22 Type 2 diabetes mellitus with diabetic chronic kidney disease; F03.90 Unspecified dementia, unspecified severity, without behavioral disturbance, psychotic disturbance, mood disturbance, and anxiety; L03.115 Cellulitis of right lower limb; E66.01 Morbid (severe) obesity due to excess calories; E03.9 Hypothyroidism, unspecified; I12.9 Hypertensive chronic kidney disease with stage 1 through stage 4 chronic kidney disease, or unspecified chronic kidney disease; N18.3 Chronic kidney disease, stage 3 (moderate); E78.00 Pure hypercholesterolemia, unspecified; E78.5 Hyperlipidemia, unspecified; H91.90 Unspecified hearing loss, unspecified ear; I89.0 Lymphedema, not elsewhere classified; Z60.2 Problems related to living alone; J40 Bronchitis, not specified as acute or chronic; K21.9 Gastro-esophageal reflux disease without esophagitis; M10.9 Gout, unspecified; Z68.36 Body mass index [BMI] 36.0-36.9, adult; Z85.41 Personal history of malignant neoplasm of cervix uteri; Z90.49 Acquired absence of other specified parts of digestive tract; Z90.5 Acquired absence of kidney; Z90.710 Acquired absence of both cervix and uterus; Z82.49 Family history of ischemic heart disease and other diseases of the circulatory system; Z80.9 Family history of malignant neoplasm, unspecified
CPT/HCPCS: 36415; 71020; 80048; 80076; 81001; 82553; 83605; 84484; 85007; 85025; 85610; 85730; 87040; 87070; 87086; 87205; 87804; 93005; 94640; 94760; 99285; J0690; J2543; J7620

== ENCOUNTER 2017-04-09 05:43 | Inpatient (IN) | payer MEDICARE ==
[~2017-04-09] VITALS: Ht 152.4 cm; Wt 87.7 kg
[~2017-04-09 05:43] MED LIST changes: +BENZ100C PO; +CEPH250C PO; +MINO100T2 PO
[2017-04-09] MEDS ORDERED: IV NORMAL SALINE 1000ML BAG 1,000 ML IV ONE (06:15)
[2017-04-09] MEDS ORDERED: ACETAMINOPHEN 500 MG TABLET PO ONE (06:15)
--- NOTE | 2017-04-09 06:28 | PHYS DOC ---
Past Medical History Past Medical History: Cancer, GERD, High Cholesterol, Hypothyroid, Renal Disease, Vascular Disease, Other Additional Past Medical Histor: lymphEDEMA BLE, CERVIX CA,GOUT, CELLULITIS Past Surgical History: Appendectomy, Cancer Surgery, Hysterectomy, Oophorectomy , Other Additional Past Surgical Histo: RIGHT NEPHRECTOMY Alcohol Use: None Drug Use: None Adult General Chief Complaint Chief Complaint: body aches, leg pain, headache HPI HPI Patient is a 86 year old female who presents with multiple complaints. Patient states that she has increasing joint pain, leg pain, headache and body aches. Patient states these symptoms are chronic but it worsened in the last 2 days. She states she lives alone and has no one to help care for her. She's been admitted in the past for cellulitis and reports she has chronic lymphedema. Her primary care physician is Dr. cruz, she states last time she saw her was 3 months ago. She said some urinary incontinence, this is not abnormal as patient 's had chronic urinary problems since a surgery decades ago. She denies any changes in bowel movements. Review of Systems Review of Systems Constitutional: Reports fever Eyes: Denies change in visual acuity, redness, or eye pain [] HENT: Denies nasal congestion or sore throat [] Respiratory: Denies cough or shortness of breath [] Cardiovascular: Denies chest pain GI: Denies abdominal pain, nausea, vomiting, bloody stools or diarrhea [] : Denies dysuria or hematuria [] Musculoskeletal: Reports body aches and right leg pain and swelling Integument: Denies rash or skin lesions [] Neurologic: Denies headache, focal weakness or sensory changes [] Endocrine: Reports polydipsia [] All other systems were reviewed and found to be within normal limits, except as documented in this note. Current Medications Current Medications Current Medications Medications (Trade) Dose Ordered Sig/Dimple Start Time Stop Time Status Last Admin Dose Admin Acetaminophen (Tylenol) 650 mg PRN Q4HRS PRN 04/09/17 08:00 04/10/17 07:59 Ceftriaxone Sodium 50 ml @ 100 mls/hr 1X ONCE 04/09/17 07:30 04/09/17 07:59 DC 04/09/17 07:43 100 MLS/HR Fluconazole (Diflucan) 100 mg 1X ONCE 04/09/17 07:30 04/09/17 07:31 DC 04/09/17 07:43 100 MG Sodium Chloride 1,000 ml @ 1,000 mls/hr 1X ONCE 04/09/17 06:15 04/09/17 07:14 DC 04/09/17 07:11 1,000 MLS/HR Vancomycin HCl (Vanco Per Pharmacy) 1 each PRN DAILY PRN 04/09/17 07:30 UNV Vancomycin HCl 2 gm/Dextrose 500 ml @ 250 mls/hr 1X ONCE 04/09/17 08:00 04/09/17 09:59 04/09/17 08:22 250 MLS/HR Allergies Allergies Allergies Coded Allergies Type Severity Reaction Last Updated Verified No Known Drug Allergies 03/02/14 No Physical Exam Physical Exam Constitutional: Well developed, well nourished, slightly disheveled, smells of skin infection HENT: Normocephalic, atraumatic, bilateral external ears normal, oropharynx moist, no oral exudates, nose normal. [] Eyes: PERRLA, EOMI, conjunctiva normal, no discharge. [] Neck: Normal range of motion, no tenderness, supple, no stridor. [] Cardiovascular:Heart rate regular with regular rhythm, systolic murmur [] Lungs & Thorax: Bilateral breath sounds clear to auscultation [] Abdomen: Bowel sounds normal, soft, no tenderness, no masses, no pulsatile masses. Nondistended, candidiasis appearing skin erythema of groin/inguinal folds Skin: Warm, dry Back: No tenderness, no CVA tenderness. [] Extremities: no cyanosis, no clubbing, right lower extremity with erythema and increased warmth, tender to palpation, multiple growth lesions on RLE, no clear breakdown of skin or drainage, + edema Neurologic: Alert and oriented X 3, normal motor function, normal sensory function, no focal deficits noted. [] Current Patient Data Vital Signs Vital Signs Date Time Temp Pulse Resp B/P (MAP) Pulse Ox O2 Delivery O2 Flow Rate FiO2 04/09/17 07:08 87 18 95 04/09/17 05:50 98.6 127/60 (82) Room Air 98.6 Lab Values Laboratory Tests Test 04/09/17 06:50 04/09/17 06:55 White Blood Count 16.5 x10^3/uL (4.0-11.0) H Red Blood Count 4.41 x10^6/uL (3.50-5.40) Hemoglobin 13.1 g/dL (12.0-15.5) Hematocrit 40.5 % (36.0-47.0) Mean Corpuscular Volume 92 fL (79-100) Mean Corpuscular Hemoglobin 30 pg (25-35) Mean Corpuscular Hemoglobin Concent 32 g/dL (31-37) Red Cell Distribution Width 15.7 % (11.5-14.5) H Platelet Count 243 x10^3/uL (140-400) Neutrophils (%) (Auto) 94 % (31-73) H Lymphocytes (%) (Auto) 3 % (24-48) L Monocytes (%) (Auto) 2 % (0-9) Eosinophils (%) (Auto) 0 % (0-3) Basophils (%) (Auto) 0 % (0-3) Neutrophils # (Auto) 15.5 x10^3uL (1.8-7.7) H Lymphocytes # (Auto) 0.5 x10^3/uL (1.0-4.8) L Monocytes # (Auto) 0.4 x10^3/uL (0.0-1.1) Eosinophils # (Auto) 0.0 x10^3/uL (0.0-0.7) Basophils # (Auto) 0.0 x10^3/uL (0.0-0.2) Platelet Estimate Pending Sodium Level 137 mmol/L (136-145) Potassium Level 4.0 mmol/L (3.5-5.1) Chloride Level 103 mmol/L (98-107) Carbon Dioxide Level 27 mmol/L (21-32) Anion Gap 7 (6-14) Blood Urea Nitrogen 36 mg/dL (7-20) H Creatinine 1.4 mg/dL (0.6-1.0) H Estimated GFR (Cockcroft-Gault) 35.7 BUN/Creatinine Ratio 26 (6-20) H Glucose Level 144 mg/dL (70-99) H Lactic Acid Level 1.4 mmol/L (0.4-2.0) Calcium Level 9.5 mg/dL (8.5-10.1) Total Bilirubin 0.5 mg/dL (0.2-1.0) Aspartate Amino Transferase (AST) 21 U/L (15-37) Alanine Aminotransferase (ALT) 15 U/L (14-59) Alkaline Phosphatase 83 U/L (46-116) Total Protein 8.2 g/dL (6.4-8.2) Albumin 3.9 g/dL (3.4-5.0) Albumin/Globulin Ratio 0.9 (1.0-1.7) L Urine Collection Type Void Urine Color Straw Urine Clarity Cloudy Urine pH 6.0 Urine Specific [place] 1.015 Urine Protein Negative mg/dL (NEG-TRACE) Urine Glucose (UA) Negative mg/dL (NEG) Urine Ketones (Stick) Negative mg/dL (NEG) Urine Blood Small (NEG) Urine Nitrite Negative (NEG) Urine Bilirubin Negative (NEG) Urine Urobilinogen Dipstick 0.2 mg/dL (0.2 mg/dL) Urine Leukocyte Esterase Moderate (NEG) Urine RBC 1-2 /HPF (0-2) Urine WBC 11-20 /HPF (0-4) Urine Squamous Epithelial Cells Few /LPF Urine Bacteria Many /HPF (0-FEW) Urine Hyaline Casts Occasional /HPF Influenza Type A Antigen Negative (NEGATIVE) Influenza Type B Antigen Negative (NEGATIVE) Laboratory Tests 04/09/17 06:50 Laboratory Tests 04/09/17 06:50 EKG EKG [] Radiology/Procedures Radiology/Procedures [] Course & Med Decision Making Course & Med Decision Making Pertinent Labs and Imaging studies reviewed. (See chart for details) HR >90, reported fever, meets SIRS. Lactate, blood cultures, ua, labs ordered. 1g Tylenol given, 1L NS bolus. Pt with leukocytosis, IV vanc ordered for cellulitis, rocephin for UTI, diflucan for candidiasis. Talked with Dr. Martin, pt accepted to admission. Dragon Disclaimer Dragon Disclaimer This electronic medical record was generated, in whole or in part, using a voice recognition dictation system. Departure Departure Impression: Primary Impression: Cellulitis Additional Impressions: Candidiasis UTI (urinary tract infection) Disposition: ADMITTED INPATIENT Admitting Physician: Rojas Martin Condition: STABLE Referrals: ADRIANA CRUZ MD (PCP) Problem Qualifiers NICOLE IGLESIAS MD Apr 09, 2017 06:28
[2017-04-09 07:07] LABS: BASO % 0 % (0-3); EOS % 0 % (0-3); HEMATOCRIT 40.5 % (36.0-47.0); HEMOGLOBIN 13.1 g/dL (12.0-15.5); LYMPH # 0.5 x10^3/uL (1.0-4.8); LYMPH % 3 % (24-48); MEAN CORPUSCULAR HEMOGLOBIN 30 pg (25-35); MEAN CORPUSCULAR HGB CONC 32 g/dL (31-37); MEAN CORPUSCULAR VOLUME 92 fL (79-100); MONO % 2 % (0-9); NEUT % 94 % (31-73); PLATELET COUNT 243 x10^3/uL (140-400); RED BLOOD COUNT 4.41 x10^6/uL (3.50-5.40); RED CELL DISTRIBUTION WIDTH 15.7 % (11.5-14.5); WHITE BLOOD COUNT 16.5 x10^3/uL (4.0-11.0)
[2017-04-09 07:08] LABS: BILIRUBIN,URINE NEGATIVE (NEG); GLUCOSE,URINE NEGATIVE (NEG); NITRITE,URINE NEGATIVE (NEG); PROTEIN,URINE NEGATIVE (NEG-TRACE); UROBILINOGEN,URINE 0.2 mg/dL (0.2 mg/dL)
[2017-04-09 07:13] LABS: CALCIUM 9.5 mg/dL (8.5-10.1); CREATININE 1.4 mg/dL (0.6-1.0); GFR 35.7
[2017-04-09 07:19] LABS: ALBUMIN 3.9 g/dL (3.4-5.0); ALBUMIN/GLOBULIN RATIO 0.9 (1.0-1.7); TOTAL BILIRUBIN 0.5 mg/dL (0.2-1.0); TOTAL PROTEIN 8.2 g/dL (6.4-8.2)
[2017-04-09 07:20] LABS: BACTERIA,URINE MANY /HPF (0-FEW); SQUAMOUS EPITHELIAL CELL,UR FEW /LPF
[2017-04-09 07:27] LABS: OBC FLU VALID
[2017-04-09] MEDS ORDERED: VANCOMYCIN PER PHARMACY MC PRN (07:30)
[2017-04-09] MEDS ORDERED: FLUCONAZOLE 100 MG TABLET. PO ONE (07:30)
[2017-04-09] MEDS ORDERED: VANCOMYCIN 2 GM in IV DEXTROSE 5% 500 ML IV ONE (08:00)
[2017-04-09 09:33] LABS: PLT ESTIMATE ADEQUATE (ADEQUATE)
[2017-04-09 09:34] LABS: STOMATOCYTES OCC
[2017-04-09 11:00] VITALS: BP 121/51
[2017-04-09] MEDS ORDERED: FUROSEMIDE 40 MG/4 ML VIAL. IVP ONE (11:30)
[2017-04-09] MEDS ORDERED: IBUPROFEN 400 MG TABLET. PO PRN (11:30)
--- NOTE | 2017-04-09 11:33 | PDOC1 ---
History and Physical Date of Admission Date of Admission DATE: 04/09/17 TIME: 11:24 Identification/Chief Complaint Chief Complaint leg pain and swelling Problems: Source Source: Caregiver, Chart review, Patient History of Present Illness History of Present Illness 86 y.o obese female bounce back, recetly admitted for leg edema/ wounds known to ID service, claims she finished 7 days of unrecalled PO abx,. She is rather a poor historian, lives at home and uses assistive device prn, Does not want SNU or [facility] even if needed/ recommended by PT. ER was concerned about her living alone, SHe says "she is fine" at home and does not want placement. I n any case, no fevrs at home, no open wounds, lots of skin tags she says our GS team is willing to excise once "she is done with the infection" . Requests ID to be on board since they know her case, WBC 16 Past Medical History Cardiovascular: HTN, Hyperlipidemia GI: GERD Rheumatologic: Gout Renal/: Chronic renal failure Endocrine: Hypothyroidism Past Surgical History Past Surgical History: Hysterectomy Family History Family History: Hypertension Social History Smoke: No ALCOHOL: none Drugs: None Current Problem List Problem List Problems Medical Problems: (1) Candidiasis Status: Acute (2) Cellulitis Status: Acute (3) UTI (urinary tract infection) Status: Acute Problems: Current Medications Current Medications Current Medications Sodium Chloride 1,000 ml @ 1,000 mls/hr 1X ONCE IV Last administered on 04/09 07:11; Start 04/09/17 at 06:15; Stop 04/09/17 at 07:14; Status DC Acetaminophen (Tylenol) 1,000 mg 1X ONCE PO Last administered on 04/09/17 07 :11; Start 04/09/17 at 06:15; Stop 04/09/17 at 06:16; Status DC Vancomycin HCl (Vanco Per Pharmacy) 1 each PRN DAILY PRN MC SEE COMMENTS; Start 04/09/17 at 07:30 Vancomycin HCl 2 gm/Dextrose 500 ml @ 250 mls/hr 1X ONCE IV Last administered on 04/09/17 08:22; Start 04/09/17 at 08:00; Stop 04/09/17 at 09 :59; Status DC Ceftriaxone Sodium 50 ml @ 100 mls/hr 1X ONCE IV Last administered on 07:43; Start 04/09/17 at 07:30; Stop 04/09/17 at 07:59; Status DC Fluconazole (Diflucan) 100 mg 1X ONCE PO Last administered on 04/09/17 07:43 ; Start 04/09/17 at 07:30; Stop 04/09/17 at 07:31; Status DC Acetaminophen (Tylenol) 650 mg PRN Q4HRS PRN PO FEVER; Start 04/09/17 at 08:00 ; Stop 04/10/17 at 07:59 Allopurinol (Zyloprim) 100 mg DAILY PO ; Start 04/09/17 at 12:00 Aspirin (Ecotrin) 81 mg DAILY PO ; Start 04/10/17 at 09:00; Status UNV Benzonatate (Tessalon Perle) 100 mg TID PO ; Start 04/09/17 at 14:00; Status UNV Citalopram Hydrobromide (CeleXA) 10 mg DAILY PO ; Start 04/10/17 at 09:00; Status UNV Furosemide (Lasix) 40 mg DAILY PO ; Start 04/10/17 at 09:00; Status UNV Levothyroxine Sodium (Synthroid) 75 mcg DAILY PO ; Start 04/10/17 at 09:00; Status UNV Pantoprazole Sodium (Protonix) 40 mg DAILY PO ; Start 04/10/17 at 09:00; Status UNV Non-Formulary Medication 1 tab QHS PO ; Start 04/09/17 at 21:00; Status UNV Active Scripts Active Tessalon Perle (Benzonatate) 100 Mg Capsule 1 Cap PO TID Minocycline Hcl 100 Mg Tablet 1 Tab PO BID 7 Days Cephalexin 250 Mg Capsule 500 Mg PO QID 7 Days Reported Celexa (Citalopram Hydrobromide) 10 Mg Tablet 10 Mg PO DAILY Allopurinol 100 Mg Tablet 100 Mg PO DAILY Pantoprazole Sodium 40 Mg Tablet.dr 40 Mg PO DAILY Aspir-Low (Aspirin) 81 Mg Tablet.dr 1 Tab PO DAILY Levothyroxine Sodium 75 Mcg Tablet 1 Tab PO DAILY Simvastatin 80 Mg Tablet 1 Tab PO QHS Furosemide 40 Mg Tablet 1 Tab PO DAILY Allergies Allergies: Coded Allergies: No Known Drug Allergies (Unverified , 03/02/14) ROS Review of System all 14 pt systems reviewed, neg Physical Exam General: Alert, Oriented X3, Cooperative, No acute distress HEENT: Atraumatic, PERRLA Lungs: Normal air movement Heart: S1S2, no rubs, no gallops, no murmurs, no jug vein distention Cardiovascular: S1, S2 Breasts: Normal, Rt breast nml w/o mass, Lt breast nml w/o mass, Nipples normal Abdomen: Normal bowel sounds, Soft, No tenderness, No hepatosplenomegaly, No masses Rectal Exam: not examined PELVIC: Nml ext genitalia Neuro: Normal gait, Normal speech, Strength at 5/5 X4 ext, Normal tone, Sensation intact, Cranial nerves 3-12 NL, Reflexes 2+ Psych/Mental Status: Mental status NL, Mood NL Vitals Vitals Vital Signs Date Time Temp Pulse Resp B/P (MAP) Pulse Ox O2 Delivery O2 Flow Rate FiO2 04/09/17 09:48 Room Air 04/09/17 08:28 90 19 95 04/09/17 05:50 98.6 127/60 (82) 98.6 Labs Labs Laboratory Tests Test 04/09/17 06:50 04/09/17 06:55 White Blood Count 16.5 x10^3/uL (4.0-11.0) Red Blood Count 4.41 x10^6/uL (3.50-5.40) Hemoglobin 13.1 g/dL (12.0-15.5) Hematocrit 40.5 % (36.0-47.0) Mean Corpuscular Volume 92 fL (79-100) Mean Corpuscular Hemoglobin 30 pg (25-35) Mean Corpuscular Hemoglobin Concent 32 g/dL (31-37) Red Cell Distribution Width 15.7 % (11.5-14.5) Platelet Count 243 x10^3/uL (140-400) Neutrophils (%) (Auto) 94 % (31-73) Lymphocytes (%) (Auto) 3 % (24-48) Monocytes (%) (Auto) 2 % (0-9) Eosinophils (%) (Auto) 0 % (0-3) Basophils (%) (Auto) 0 % (0-3) Neutrophils # (Auto) 15.5 x10^3uL (1.8-7.7) Lymphocytes # (Auto) 0.5 x10^3/uL (1.0-4.8) Monocytes # (Auto) 0.4 x10^3/uL (0.0-1.1) Eosinophils # (Auto) 0.0 x10^3/uL (0.0-0.7) Basophils # (Auto) 0.0 x10^3/uL (0.0-0.2) Segmented Neutrophils % 95 % (35-66) Lymphocytes % 3 % (24-48) Monocytes % 2 % (0-10) Platelet Estimate Adequate (ADEQUATE) Stomatocytes Occ Sodium Level 137 mmol/L (136-145) Potassium Level 4.0 mmol/L (3.5-5.1) Chloride Level 103 mmol/L (98-107) Carbon Dioxide Level 27 mmol/L (21-32) Anion Gap 7 (6-14) Blood Urea Nitrogen 36 mg/dL (7-20) Creatinine 1.4 mg/dL (0.6-1.0) Estimated GFR (Cockcroft-Gault) 35.7 BUN/Creatinine Ratio 26 (6-20) Glucose Level 144 mg/dL (70-99) Lactic Acid Level 1.4 mmol/L (0.4-2.0) Calcium Level 9.5 mg/dL (8.5-10.1) Total Bilirubin 0.5 mg/dL (0.2-1.0) Aspartate Amino Transf (AST/SGOT) 21 U/L (15-37) Alanine Aminotransferase (ALT/SGPT) 15 U/L (14-59) Alkaline Phosphatase 83 U/L (46-116) Total Protein 8.2 g/dL (6.4-8.2) Albumin 3.9 g/dL (3.4-5.0) Albumin/Globulin Ratio 0.9 (1.0-1.7) Urine Collection Type Void Urine Color Straw Urine Clarity Cloudy Urine pH 6.0 Urine Specific [place] 1.015 Urine Protein Negative mg/dL (NEG-TRACE) Urine Glucose (UA) Negative mg/dL (NEG) Urine Ketones (Stick) Negative mg/dL (NEG) Urine Blood Small (NEG) Urine Nitrite Negative (NEG) Urine Bilirubin Negative (NEG) Urine Urobilinogen Dipstick 0.2 mg/dL (0.2 mg/dL) Urine Leukocyte Esterase Moderate (NEG) Urine RBC 1-2 /HPF (0-2) Urine WBC 11-20 /HPF (0-4) Urine Squamous Epithelial Cells Few /LPF Urine Bacteria Many /HPF (0-FEW) Urine Hyaline Casts Occasional /HPF Influenza Type A Antigen Negative (NEGATIVE) Influenza Type B Antigen Negative (NEGATIVE) Laboratory Tests Test 04/09/17 06:50 04/09/17 06:55 White Blood Count 16.5 x10^3/uL (4.0-11.0) Red Blood Count 4.41 x10^6/uL (3.50-5.40) Hemoglobin 13.1 g/dL (12.0-15.5) Hematocrit 40.5 % (36.0-47.0) Mean Corpuscular Volume 92 fL (79-100) Mean Corpuscular Hemoglobin 30 pg (25-35) Mean Corpuscular Hemoglobin Concent 32 g/dL (31-37) Red Cell Distribution Width 15.7 % (11.5-14.5) Platelet Count 243 x10^3/uL (140-400) Neutrophils (%) (Auto) 94 % (31-73) Lymphocytes (%) (Auto) 3 % (24-48) Monocytes (%) (Auto) 2 % (0-9) Eosinophils (%) (Auto) 0 % (0-3) Basophils (%) (Auto) 0 % (0-3) Neutrophils # (Auto) 15.5 x10^3uL (1.8-7.7) Lymphocytes # (Auto) 0.5 x10^3/uL (1.0-4.8) Monocytes # (Auto) 0.4 x10^3/uL (0.0-1.1) Eosinophils # (Auto) 0.0 x10^3/uL (0.0-0.7) Basophils # (Auto) 0.0 x10^3/uL (0.0-0.2) Segmented Neutrophils % 95 % (35-66) Lymphocytes % 3 % (24-48) Monocytes % 2 % (0-10) Platelet Estimate Adequate (ADEQUATE) Stomatocytes Occ Sodium Level 137 mmol/L (136-145) Potassium Level 4.0 mmol/L (3.5-5.1) Chloride Level 103 mmol/L (98-107) Carbon Dioxide Level 27 mmol/L (21-32) Anion Gap 7 (6-14) Blood Urea Nitrogen 36 mg/dL (7-20) Creatinine 1.4 mg/dL (0.6-1.0) Estimated GFR (Cockcroft-Gault) 35.7 BUN/Creatinine Ratio 26 (6-20) Glucose Level 144 mg/dL (70-99) Lactic Acid Level 1.4 mmol/L (0.4-2.0) Calcium Level 9.5 mg/dL (8.5-10.1) Total Bilirubin 0.5 mg/dL (0.2-1.0) Aspartate Amino Transf (AST/SGOT) 21 U/L (15-37) Alanine Aminotransferase (ALT/SGPT) 15 U/L (14-59) Alkaline Phosphatase 83 U/L (46-116) Total Protein 8.2 g/dL (6.4-8.2) Albumin 3.9 g/dL (3.4-5.0) Albumin/Globulin Ratio 0.9 (1.0-1.7) Urine Collection Type Void Urine Color Straw Urine Clarity Cloudy Urine pH 6.0 Urine Specific [place] 1.015 Urine Protein Negative mg/dL (NEG-TRACE) Urine Glucose (UA) Negative mg/dL (NEG) Urine Ketones (Stick) Negative mg/dL (NEG) Urine Blood Small (NEG) Urine Nitrite Negative (NEG) Urine Bilirubin Negative (NEG) Urine Urobilinogen Dipstick 0.2 mg/dL (0.2 mg/dL) Urine Leukocyte Esterase Moderate (NEG) Urine RBC 1-2 /HPF (0-2) Urine WBC 11-20 /HPF (0-4) Urine Squamous Epithelial Cells Few /LPF Urine Bacteria Many /HPF (0-FEW) Urine Hyaline Casts Occasional /HPF Influenza Type A Antigen Negative (NEGATIVE) Influenza Type B Antigen Negative (NEGATIVE) VTE Prophylaxis Ordered VTE Prophylaxis Devices: Yes VTE Pharmacological Prophylaxi: Yes Assessment/Plan Assessment/Plan 1. Bilateral leg pain, swelling, chronic lymphedema, r.o cellulitis - WBC 16, started on vanc, consulted ID, check ESR, elevate legs, OT for lymphedema - pT.OT - resume home meds 2. Obesity BMI 37 3. HTN, gERD ELISABET SALGUERO MD Apr 09, 2017 11:33
[2017-04-09] MEDS: PANTOPRAZOLE 40 MG TABLET.DR. PO SCH (11:40)
[2017-04-09] MEDS: ALLOPURINOL 100 MG TABLET. PO SCH (11:40)
[2017-04-09] MEDS: ACETAMINOPHEN 325 MG TABLET. PO PRN ×2 (11:40→22:41)
[2017-04-09] MEDS: ASPIRIN ENTERIC COATED 81 MG TABLET.DR. PO SCH (11:40)
[2017-04-09] MEDS: LEVOTHYROXINE 75 MCG TABLET PO SCH (11:40)
--- NOTE | 2017-04-09 11:54 | PDOC ---
Infectious Disease Note Vital Sign Vital Signs Vital Signs Date Time Temp Pulse Resp B/P (MAP) Pulse Ox O2 Delivery O2 Flow Rate FiO2 04/09/17 09:48 Room Air 04/09/17 08:28 90 19 95 04/09/17 05:50 98.6 127/60 (82) 98.6 Labs Lab Laboratory Tests Test 04/09/17 06:50 04/09/17 06:55 White Blood Count 16.5 x10^3/uL (4.0-11.0) Red Blood Count 4.41 x10^6/uL (3.50-5.40) Hemoglobin 13.1 g/dL (12.0-15.5) Hematocrit 40.5 % (36.0-47.0) Mean Corpuscular Volume 92 fL (79-100) Mean Corpuscular Hemoglobin 30 pg (25-35) Mean Corpuscular Hemoglobin Concent 32 g/dL (31-37) Red Cell Distribution Width 15.7 % (11.5-14.5) Platelet Count 243 x10^3/uL (140-400) Neutrophils (%) (Auto) 94 % (31-73) Lymphocytes (%) (Auto) 3 % (24-48) Monocytes (%) (Auto) 2 % (0-9) Eosinophils (%) (Auto) 0 % (0-3) Basophils (%) (Auto) 0 % (0-3) Neutrophils # (Auto) 15.5 x10^3uL (1.8-7.7) Lymphocytes # (Auto) 0.5 x10^3/uL (1.0-4.8) Monocytes # (Auto) 0.4 x10^3/uL (0.0-1.1) Eosinophils # (Auto) 0.0 x10^3/uL (0.0-0.7) Basophils # (Auto) 0.0 x10^3/uL (0.0-0.2) Segmented Neutrophils % 95 % (35-66) Lymphocytes % 3 % (24-48) Monocytes % 2 % (0-10) Platelet Estimate Adequate (ADEQUATE) Stomatocytes Occ Sodium Level 137 mmol/L (136-145) Potassium Level 4.0 mmol/L (3.5-5.1) Chloride Level 103 mmol/L (98-107) Carbon Dioxide Level 27 mmol/L (21-32) Anion Gap 7 (6-14) Blood Urea Nitrogen 36 mg/dL (7-20) Creatinine 1.4 mg/dL (0.6-1.0) Estimated GFR (Cockcroft-Gault) 35.7 BUN/Creatinine Ratio 26 (6-20) Glucose Level 144 mg/dL (70-99) Lactic Acid Level 1.4 mmol/L (0.4-2.0) Calcium Level 9.5 mg/dL (8.5-10.1) Total Bilirubin 0.5 mg/dL (0.2-1.0) Aspartate Amino Transf (AST/SGOT) 21 U/L (15-37) Alanine Aminotransferase (ALT/SGPT) 15 U/L (14-59) Alkaline Phosphatase 83 U/L (46-116) Total Protein 8.2 g/dL (6.4-8.2) Albumin 3.9 g/dL (3.4-5.0) Albumin/Globulin Ratio 0.9 (1.0-1.7) Urine Collection Type Void Urine Color Straw Urine Clarity Cloudy Urine pH 6.0 Urine Specific [place] 1.015 Urine Protein Negative mg/dL (NEG-TRACE) Urine Glucose (UA) Negative mg/dL (NEG) Urine Ketones (Stick) Negative mg/dL (NEG) Urine Blood Small (NEG) Urine Nitrite Negative (NEG) Urine Bilirubin Negative (NEG) Urine Urobilinogen Dipstick 0.2 mg/dL (0.2 mg/dL) Urine Leukocyte Esterase Moderate (NEG) Urine RBC 1-2 /HPF (0-2) Urine WBC 11-20 /HPF (0-4) Urine Squamous Epithelial Cells Few /LPF Urine Bacteria Many /HPF (0-FEW) Urine Hyaline Casts Occasional /HPF Influenza Type A Antigen Negative (NEGATIVE) Influenza Type B Antigen Negative (NEGATIVE) Objective Assessment Rt foot cellulitis Lymphedema Leukocytosis Skin tags, very large Plan Plan of Care cefazolin leg elevation d/w EDUARDO Arcos MD Apr 09, 2017 11:54
[2017-04-09 11:55] LABS: FREE T4 0.95 ng/dL (0.76-1.46)
[2017-04-09] MEDS ORDERED: CITALOPRAM 10 MG TABLET. PO SCH (12:00)
--- NOTE | 2017-04-09 12:48 | CONS ---
DATE OF CONSULTATION: 04/09/2017 REQUESTING PHYSICIAN: Dr. Stafford. REASON FOR CONSULTATION: Cellulitis. HISTORY OF PRESENT ILLNESS: This 86-year-old female with a history of lymphedema and multiple large polypoid lesions on the skin on the leg, who comes in for pain in both legs, but more so on the right, chills, not feeling well, body ache. The patient had leukocytosis. The patient is dmitted with cellulitis diagnosis. Denies any nausea, vomiting, diarrhea. Denies any chest pain, shortness of breath. The patient says she had fever when the ambulance arrived, but it has not been documented in the ER or here. PAST MEDICAL HISTORY: Positive for similar episode in December. The patient does have lymphedema. The patient does have polypoid lesions on the leg, has gastroesophageal reflux disease, hyperlipidemia, hypothyroidism, renal disease. She has had nephrectomy, hysterectomy, cancer surgery, appendicectomy. SOCIAL HISTORY: Negative for smoking, alcohol, illicit drug use. ALLERGIES: No known drug allergies. CURRENT MEDICATIONS: Reviewed. REVIEW OF SYSTEMS: As per HPI, all other systems reviewed are negative. PHYSICAL EXAMINATION: GENERAL: Alert, oriented female, not in distress. VITAL SIGNS: Stable, afebrile. HEENT: NAD. NECK: Supple, no JVP, no lymphadenopathy. LUNGS: Clear. HEART: S1, S2 regular. ABDOMEN: Benign. EXTREMITIES: Bilateral pitting edema present. The patient does have pitting and nonpitting edema present. The patient does have large polypoid lesions on the skin on the right leg, some erythema of the right foot. No open wound area or induration or abscess. NEUROLOGIC: The patient is neurologically intact. LABORATORY DATA: White count is 16.5, BUN 36, creatinine 1.4. Influenza screen negative. Urinalysis showed 11-20 wbc's. Cultures are pending. IMPRESSION: 1. Right leg cellulitis. 2. Leukocytosis. 3. Lymphedema. 4. Renal insufficiency. 5. Abnormal urinalysis. RECOMMENDATIONS: We would use cefazolin, leg elevation, supportive care. I did discuss with her about taking care of the polypoid skin lesions, which I had consulted Dr. Dias last time for, but then she admitted that she just put it off. Discussion with Dr. Stafford done. Thank you very much, Dr. Stafford, for giving me the opportunity to participate in this patient's care. EDUARDO RIZVI MD DR: TERRI/marybel JOB#: [id number] / [id number]
[2017-04-09] MEDS ORDERED: ceFAZolin SODIUM 1 GM in IV DEXTROSE 5% 50 ML IV SCH (14:00)
[2017-04-09] MEDS: ceFAZolin SODIUM IV Push 1 GM VIAL. IVP SCH ×2 (14:06→20:56)
[2017-04-09] MEDS: BENZONATATE 100 MG CAPSULE. PO SCH ×2 (14:06→20:55)
[2017-04-09 15:00] VITALS: BP 121/51
[2017-04-09 19:00] VITALS: BP 127/62
[2017-04-09] MEDS: SIMVASTATIN 40 MG TABLET. PO SCH (20:55)
[2017-04-09] MEDS: CITALOPRAM 10 MG TABLET. PO SCH (20:55)
[2017-04-09 23:00] VITALS: BP 120/49
[2017-04-10 03:00] VITALS: BP 120/54
[2017-04-10 03:55] LABS: BASO % 0 % (0-3); EOS % 2 % (0-3); HEMATOCRIT 35.9 % (36.0-47.0); HEMOGLOBIN 11.5 g/dL (12.0-15.5); LYMPH # 0.5 x10^3/uL (1.0-4.8); LYMPH % 5 % (24-48); MEAN CORPUSCULAR HEMOGLOBIN 30 pg (25-35); MEAN CORPUSCULAR HGB CONC 32 g/dL (31-37); MEAN CORPUSCULAR VOLUME 93 fL (79-100); MONO % 3 % (0-9); NEUT % 90 % (31-73); PLATELET COUNT 187 x10^3/uL (140-400); RED BLOOD COUNT 3.84 x10^6/uL (3.50-5.40); RED CELL DISTRIBUTION WIDTH 15.1 % (11.5-14.5); WHITE BLOOD COUNT 11.1 x10^3/uL (4.0-11.0)
[2017-04-10 05:09] LABS: CALCIUM 8.9 mg/dL (8.5-10.1); CREATININE 1.3 mg/dL (0.6-1.0); GFR 38.9; POTASSIUM 3.3 mmol/L (3.5-5.1)
[2017-04-10] MEDS: PANTOPRAZOLE 40 MG TABLET.DR. PO SCH (05:15)
[2017-04-10] MEDS: ceFAZolin SODIUM IV Push 1 GM VIAL. IVP SCH ×3 (05:15→21:04)
[2017-04-10] MEDS: LEVOTHYROXINE 75 MCG TABLET PO SCH (05:15)
[2017-04-10] MEDS: ACETAMINOPHEN 325 MG TABLET. PO PRN ×2 (05:17→21:01)
[2017-04-10 07:20] VITALS: BP 109/47
[2017-04-10] MEDS: ASPIRIN ENTERIC COATED 81 MG TABLET.DR. PO SCH (08:33)
[2017-04-10] MEDS: ALLOPURINOL 100 MG TABLET. PO SCH (08:33)
[2017-04-10] MEDS: FUROSEMIDE 40 MG TABLET. PO SCH (08:33)
[2017-04-10] MEDS ORDERED: POTASSIUM CHLORIDE 20 MEQ TABLET.ER. PO ONE (10:00)
[2017-04-10 10:30] VITALS: BP 116/50
[2017-04-10] MEDS: BENZONATATE 100 MG CAPSULE. PO SCH ×3 (10:32→21:00)
--- NOTE | 2017-04-10 10:47 | PDOC ---
PROGRESS NOTES Chief Complaint Chief Complaint 1. Bilateral leg pain, swelling, chronic lymphedema, r.o cellulitis 2. GPC 1 BOTTLE, likely contaminant 2. Obesity BMI 37 3. HTN, gERD History of Present Illness History of Present Illness Claims now neck pain and headache and back pain CLaims fell 2 weeks ago REquested physiatry and neuro Told her physiatry is unavailable GPC in 1 bottle PLAN: Agreed to trial of tylenol and lidoderm patch PT.OT to cont Await ff/ BC Dw , Tanika and JESUS Elizabeth Vitals Vitals Vital Signs Date Time Temp Pulse Resp B/P (MAP) Pulse Ox O2 Delivery O2 Flow Rate FiO2 04/10/17 07:30 Room Air 04/10/17 07:20 99.3 82 18 109/47 (67) 93 99.3 Physical Exam General: Alert, Oriented X3, Cooperative, No acute distress Lungs: Clear Abdomen: Normal bowel sounds, Soft, No tenderness, No hepatosplenomegaly, No masses Labs LABS Laboratory Tests Test 04/09/17 11:50 04/10/17 03:25 Erythrocyte Sedimentation Rate 40 (0-25) White Blood Count 11.1 x10^3/uL (4.0-11.0) Red Blood Count 3.84 x10^6/uL (3.50-5.40) Hemoglobin 11.5 g/dL (12.0-15.5) Hematocrit 35.9 % (36.0-47.0) Mean Corpuscular Volume 93 fL (79-100) Mean Corpuscular Hemoglobin 30 pg (25-35) Mean Corpuscular Hemoglobin Concent 32 g/dL (31-37) Red Cell Distribution Width 15.1 % (11.5-14.5) Platelet Count 187 x10^3/uL (140-400) Neutrophils (%) (Auto) 90 % (31-73) Lymphocytes (%) (Auto) 5 % (24-48) Monocytes (%) (Auto) 3 % (0-9) Eosinophils (%) (Auto) 2 % (0-3) Basophils (%) (Auto) 0 % (0-3) Neutrophils # (Auto) 10.0 x10^3uL (1.8-7.7) Lymphocytes # (Auto) 0.5 x10^3/uL (1.0-4.8) Monocytes # (Auto) 0.3 x10^3/uL (0.0-1.1) Eosinophils # (Auto) 0.2 x10^3/uL (0.0-0.7) Basophils # (Auto) 0.0 x10^3/uL (0.0-0.2) Sodium Level 142 mmol/L (136-145) Potassium Level 3.3 mmol/L (3.5-5.1) Chloride Level 107 mmol/L (98-107) Carbon Dioxide Level 25 mmol/L (21-32) Anion Gap 10 (6-14) Blood Urea Nitrogen 34 mg/dL (7-20) Creatinine 1.3 mg/dL (0.6-1.0) Estimated GFR (Cockcroft-Gault) 38.9 Glucose Level 117 mg/dL (70-99) Calcium Level 8.9 mg/dL (8.5-10.1) Review of Systems Review of Systems neck pain, back pain, headache, no cp, soa or diarrhea or emesis Assessment and Plan Assessmemt and Plan Problems Medical Problems: (1) Candidiasis Status: Acute (2) Cellulitis Status: Acute (3) UTI (urinary tract infection) Status: Acute Problems: Comment Review of Relevant I have reviewed the following items javan (where applicable) has been applied. Labs Laboratory Tests Test 04/09/17 06:50 04/09/17 06:55 04/09/17 11:50 04/10/17 03:25 White Blood Count 16.5 x10^3/uL (4.0-11.0) 11.1 x10^3/uL (4.0-11.0) Red Blood Count 4.41 x10^6/uL (3.50-5.40) 3.84 x10^6/uL (3.50-5.40) Hemoglobin 13.1 g/dL (12.0-15.5) 11.5 g/dL (12.0-15.5) Hematocrit 40.5 % (36.0-47.0) 35.9 % (36.0-47.0) Mean Corpuscular Volume 92 fL (79-100) 93 fL (79-100) Mean Corpuscular Hemoglobin 30 pg (25-35) 30 pg (25-35) Mean Corpuscular Hemoglobin Concent 32 g/dL (31-37) 32 g/dL (31-37) Red Cell Distribution Width 15.7 % (11.5-14.5) 15.1 % (11.5-14.5) Platelet Count 243 x10^3/uL (140-400) 187 x10^3/uL (140-400) Neutrophils (%) (Auto) 94 % (31-73) 90 % (31-73) Lymphocytes (%) (Auto) 3 % (24-48) 5 % (24-48) Monocytes (%) (Auto) 2 % (0-9) 3 % (0-9) Eosinophils (%) (Auto) 0 % (0-3) 2 % (0-3) Basophils (%) (Auto) 0 % (0-3) 0 % (0-3) Neutrophils # (Auto) 15.5 x10^3uL (1.8-7.7) 10.0 x10^3uL (1.8-7.7) Lymphocytes # (Auto) 0.5 x10^3/uL (1.0-4.8) 0.5 x10^3/uL (1.0-4.8) Monocytes # (Auto) 0.4 x10^3/uL (0.0-1.1) 0.3 x10^3/uL (0.0-1.1) Eosinophils # (Auto) 0.0 x10^3/uL (0.0-0.7) 0.2 x10^3/uL (0.0-0.7) Basophils # (Auto) 0.0 x10^3/uL (0.0-0.2) 0.0 x10^3/uL (0.0-0.2) Segmented Neutrophils % 95 % (35-66) Lymphocytes % 3 % (24-48) Monocytes % 2 % (0-10) Platelet Estimate Adequate (ADEQUATE) Stomatocytes Occ Sodium Level 137 mmol/L (136-145) 142 mmol/L (136-145) Potassium Level 4.0 mmol/L (3.5-5.1) 3.3 mmol/L (3.5-5.1) Chloride Level 103 mmol/L (98-107) 107 mmol/L (98-107) Carbon Dioxide Level 27 mmol/L (21-32) 25 mmol/L (21-32) Anion Gap 7 (6-14) 10 (6-14) Blood Urea Nitrogen 36 mg/dL (7-20) 34 mg/dL (7-20) Creatinine 1.4 mg/dL (0.6-1.0) 1.3 mg/dL (0.6-1.0) Estimated GFR (Cockcroft-Gault) 35.7 38.9 BUN/Creatinine Ratio 26 (6-20) Glucose Level 144 mg/dL (70-99) 117 mg/dL (70-99) Lactic Acid Level 1.4 mmol/L (0.4-2.0) Calcium Level 9.5 mg/dL (8.5-10.1) 8.9 mg/dL (8.5-10.1) Total Bilirubin 0.5 mg/dL (0.2-1.0) Aspartate Amino Transf (AST/SGOT) 21 U/L (15-37) Alanine Aminotransferase (ALT/SGPT) 15 U/L (14-59) Alkaline Phosphatase 83 U/L (46-116) Total Protein 8.2 g/dL (6.4-8.2) Albumin 3.9 g/dL (3.4-5.0) Albumin/Globulin Ratio 0.9 (1.0-1.7) Thyroid Stimulating Hormone (TSH) 0.853 uIU/mL (0.358-3.74) Free Thyroxine 0.95 ng/dL (0.76-1.46) Free Triiodothyronine (T3) pg/mL 1.86 pg/mL (2.18-3.98) Urine Collection Type Void Urine Color Straw Urine Clarity Cloudy Urine pH 6.0 Urine Specific [place] 1.015 Urine Protein Negative mg/dL (NEG-TRACE) Urine Glucose (UA) Negative mg/dL (NEG) Urine Ketones (Stick) Negative mg/dL (NEG) Urine Blood Small (NEG) Urine Nitrite Negative (NEG) Urine Bilirubin Negative (NEG) Urine Urobilinogen Dipstick 0.2 mg/dL (0.2 mg/dL) Urine Leukocyte Esterase Moderate (NEG) Urine RBC 1-2 /HPF (0-2) Urine WBC 11-20 /HPF (0-4) Urine Squamous Epithelial Cells Few /LPF Urine Bacteria Many /HPF (0-FEW) Urine Hyaline Casts Occasional /HPF Influenza Type A Antigen Negative (NEGATIVE) Influenza Type B Antigen Negative (NEGATIVE) Erythrocyte Sedimentation Rate 40 (0-25) Laboratory Tests Test 04/09/17 11:50 04/10/17 03:25 Erythrocyte Sedimentation Rate 40 (0-25) White Blood Count 11.1 x10^3/uL (4.0-11.0) Red Blood Count 3.84 x10^6/uL (3.50-5.40) Hemoglobin 11.5 g/dL (12.0-15.5) Hematocrit 35.9 % (36.0-47.0) Mean Corpuscular Volume 93 fL (79-100) Mean Corpuscular Hemoglobin 30 pg (25-35) Mean Corpuscular Hemoglobin Concent 32 g/dL (31-37) Red Cell Distribution Width 15.1 % (11.5-14.5) Platelet Count 187 x10^3/uL (140-400) Neutrophils (%) (Auto) 90 % (31-73) Lymphocytes (%) (Auto) 5 % (24-48) Monocytes (%) (Auto) 3 % (0-9) Eosinophils (%) (Auto) 2 % (0-3) Basophils (%) (Auto) 0 % (0-3) Neutrophils # (Auto) 10.0 x10^3uL (1.8-7.7) Lymphocytes # (Auto) 0.5 x10^3/uL (1.0-4.8) Monocytes # (Auto) 0.3 x10^3/uL (0.0-1.1) Eosinophils # (Auto) 0.2 x10^3/uL (0.0-0.7) Basophils # (Auto) 0.0 x10^3/uL (0.0-0.2) Sodium Level 142 mmol/L (136-145) Potassium Level 3.3 mmol/L (3.5-5.1) Chloride Level 107 mmol/L (98-107) Carbon Dioxide Level 25 mmol/L (21-32) Anion Gap 10 (6-14) Blood Urea Nitrogen 34 mg/dL (7-20) Creatinine 1.3 mg/dL (0.6-1.0) Estimated GFR (Cockcroft-Gault) 38.9 Glucose Level 117 mg/dL (70-99) Calcium Level 8.9 mg/dL (8.5-10.1) Microbiology 04/09/17 Blood Culture - Final, Complete Medications Current Medications Sodium Chloride 1,000 ml @ 1,000 mls/hr 1X ONCE IV Last administered on 04/09 07:11; Start 04/09/17 at 06:15; Stop 04/09/17 at 07:14; Status DC Acetaminophen (Tylenol) 1,000 mg 1X ONCE PO Last administered on 04/09/17 07 :11; Start 04/09/17 at 06:15; Stop 04/09/17 at 06:16; Status DC Vancomycin HCl (Vanco Per Pharmacy) 1 each PRN DAILY PRN MC SEE COMMENTS; Start 04/09/17 at 07:30; Stop 04/09/17 at 12:00; Status DC Vancomycin HCl 2 gm/Dextrose 500 ml @ 250 mls/hr 1X ONCE IV Last administered on 04/09/17 08:22; Start 04/09/17 at 08:00; Stop 04/09/17 at 09 :59; Status DC Ceftriaxone Sodium 50 ml @ 100 mls/hr 1X ONCE IV Last administered on 07:43; Start 04/09/17 at 07:30; Stop 04/09/17 at 07:59; Status DC Fluconazole (Diflucan) 100 mg 1X ONCE PO Last administered on 04/09/17 07:43 ; Start 04/09/17 at 07:30; Stop 04/09/17 at 07:31; Status DC Acetaminophen (Tylenol) 650 mg PRN Q4HRS PRN PO FEVER Last administered on 05:17; Start 04/09/17 at 08:00; Stop 04/10/17 at 07:59; Status DC Allopurinol (Zyloprim) 100 mg DAILY PO Last administered on 04/10/17 08:33; Start 04/09/17 at 12:00 Aspirin (Ecotrin) 81 mg DAILY PO Last administered on 04/10/17 08:33; Start 04/09/17 at 12:00 Benzonatate (Tessalon Perle) 100 mg TID PO Last administered on 04/10/17 10: 32; Start 04/09/17 at 14:00 Citalopram Hydrobromide (CeleXA) 10 mg DAILY PO ; Start 04/09/17 at 12:00; Stop 04/09/17 at 12:09; Status DC Furosemide (Lasix) 40 mg DAILY PO Last administered on 04/10/17 08:33; Start 04/10/17 at 09:00 Levothyroxine Sodium (Synthroid) 75 mcg DAILY07 PO Last administered on 05:15; Start 04/09/17 at 12:00 Pantoprazole Sodium (Protonix) 40 mg DAILYAC PO Last administered on 05:15; Start 04/09/17 at 12:00 Simvastatin (Zocor) 80 mg QHS PO Last administered on 04/09/17 20:55; Start 04/09/17 at 21:00 Ibuprofen (Motrin) 400 mg PRN Q6HRS PRN PO INFLAMMATION Last administered on 08:33; Start 04/09/17 at 11:30 Furosemide (Lasix) 40 mg 1X ONCE IVP Last administered on 04/09/17 11:40; Start 04/09/17 at 11:30; Stop 04/09/17 at 11:31; Status DC Cefazolin Sodium 1 gm/Dextrose 50 ml @ 100 mls/hr Q8HRS IV ; Start 04/09/17 at 14:00; Status UNV Cefazolin Sodium (Ancef) 1 gm Q8HRS IVP Last administered on 04/10/17 05:15; Start 04/09/17 at 14:00 Citalopram Hydrobromide (CeleXA) 10 mg HS PO Last administered on 04/09/17 20 :55; Start 04/09/17 at 21:00 Potassium Chloride (Klor-Con) 40 meq 1X ONCE PO Last administered on 10:28; Start 04/10/17 at 10:00; Stop 04/10/17 at 10:01; Status DC Potassium Chloride (Klor-Con) 40 meq DAILYWBKFT PO ; Start 04/11/17 at 08:00 Active Scripts Active Tessalon Perle (Benzonatate) 100 Mg Capsule 1 Cap PO TID Minocycline Hcl 100 Mg Tablet 1 Tab PO BID 7 Days Cephalexin 250 Mg Capsule 500 Mg PO QID 7 Days Reported Celexa (Citalopram Hydrobromide) 10 Mg Tablet 10 Mg PO DAILY Allopurinol 100 Mg Tablet 100 Mg PO DAILY Pantoprazole Sodium 40 Mg Tablet.dr 40 Mg PO DAILY Aspir-Low (Aspirin) 81 Mg Tablet.dr 1 Tab PO DAILY Levothyroxine Sodium 75 Mcg Tablet 1 Tab PO DAILY Simvastatin 80 Mg Tablet 1 Tab PO QHS Furosemide 40 Mg Tablet 1 Tab PO DAILY Vitals/I & O Vital Sign - Last 24 Hours 04/09/17 04/09/17 04/09/17 04/09/17 11:00 15:00 19:00 19:05 Temp 95.5 96.6 97.5 95.5 96.6 97.5 Pulse 83 76 77 Resp 18 B/P (MAP) 121/51 (74) 121/51 (74) 127/62 (83) Pulse Ox 93 95 97 O2 Delivery Room Air Room Air Room Air Room Air 04/09/17 04/10/17 04/10/17 04/10/17 23:00 03:00 07:20 07:30 Temp 96.6 97.5 99.3 96.6 97.5 99.3 Pulse 77 83 82 Resp 18 B/P (MAP) 120/49 (72) 120/54 (76) 109/47 (67) Pulse Ox 96 96 93 O2 Delivery Room Air Room Air Room Air Room Air Intake and Output 04/09/17 04/09/17 04/10/17 15:00 23:00 07:00 Intake Total 1050 ml 0 ml 290 ml Balance 1050 ml 0 ml 290 ml ELISABET SALGUERO MD Apr 10, 2017 10:47
[2017-04-10] MEDS ORDERED: IBUPROFEN 600 MG TABLET. PO PRN (11:00)
[2017-04-10] MEDS: LIDOCAINE (700MG/PATCH) PATCH. TD SCH (11:00)
[2017-04-10 14:30] VITALS: BP 105/57
[2017-04-10 19:00] VITALS: BP 112/53
[2017-04-10] MEDS: SIMVASTATIN 40 MG TABLET. PO SCH (21:00)
[2017-04-10] MEDS: CITALOPRAM 10 MG TABLET. PO SCH (21:00)
[2017-04-10 23:00] VITALS: BP 104/49
[2017-04-11 03:00] VITALS: BP 108/37
[2017-04-11 03:56] LABS: BASO % 0 % (0-3); EOS % 4 % (0-3); HEMATOCRIT 34.7 % (36.0-47.0); HEMOGLOBIN 11.2 g/dL (12.0-15.5); LYMPH # 0.4 x10^3/uL (1.0-4.8); LYMPH % 4 % (24-48); MEAN CORPUSCULAR HEMOGLOBIN 30 pg (25-35); MEAN CORPUSCULAR HGB CONC 32 g/dL (31-37); MEAN CORPUSCULAR VOLUME 92 fL (79-100); MONO % 3 % (0-9); NEUT % 89 % (31-73); PLATELET COUNT 184 x10^3/uL (140-400); RED BLOOD COUNT 3.79 x10^6/uL (3.50-5.40); RED CELL DISTRIBUTION WIDTH 15.3 % (11.5-14.5); WHITE BLOOD COUNT 11.3 x10^3/uL (4.0-11.0)
[2017-04-11 05:08] LABS: CALCIUM 9.1 mg/dL (8.5-10.1); CREATININE 1.5 mg/dL (0.6-1.0); POTASSIUM 3.7 mmol/L (3.5-5.1)
[2017-04-11] MEDS: LEVOTHYROXINE 75 MCG TABLET PO SCH (05:52)
[2017-04-11] MEDS: ceFAZolin SODIUM IV Push 1 GM VIAL. IVP SCH ×3 (05:52→21:41)
[2017-04-11] MEDS: PANTOPRAZOLE 40 MG TABLET.DR. PO SCH (05:52)
[2017-04-11 07:00] VITALS: BP 120/58
[2017-04-11] MEDS: ACETAMINOPHEN 325 MG TABLET. PO PRN ×2 (08:04→17:08)
[2017-04-11] MEDS: ALLOPURINOL 100 MG TABLET. PO SCH (08:05)
[2017-04-11] MEDS: ASPIRIN ENTERIC COATED 81 MG TABLET.DR. PO SCH (08:05)
[2017-04-11] MEDS: LIDOCAINE (700MG/PATCH) PATCH. TD SCH (08:05)
[2017-04-11] MEDS: BENZONATATE 100 MG CAPSULE. PO SCH ×3 (08:05→21:39)
[2017-04-11] MEDS: POTASSIUM CHLORIDE 20 MEQ TABLET.ER. PO SCH (08:05)
[2017-04-11] MEDS: FUROSEMIDE 40 MG TABLET. PO SCH (08:05)
--- NOTE | 2017-04-11 08:14 | PDOC ---
SURGICAL PROGRESS NOTE Subjective Patient resting comfortably does complain of bilateral leg pain. Vital Signs Vital Signs Date Time Temp Pulse Resp B/P (MAP) Pulse Ox O2 Delivery O2 Flow Rate FiO2 04/11/17 08:06 Room Air 04/11/17 07:00 97.9 87 20 120/58 (78) 95 97.9 I&O Intake and Output 04/11/17 07:00 Intake Total 600 ml Balance 600 ml Intake Oral 600 ml # Voids 2 PATIENT HAS A LOPEZ: No General: Alert, Oriented X3, Cooperative, No acute distress Extremities: Other (bilateral leg edema with dry skin and exophytic skin lesions largest 3x3cm TTP ) Labs Laboratory Tests Test 04/09/17 11:50 04/10/17 03:25 04/11/17 03:30 Erythrocyte Sedimentation Rate 40 (0-25) White Blood Count 11.1 x10^3/uL (4.0-11.0) 11.3 x10^3/uL (4.0-11.0) Red Blood Count 3.84 x10^6/uL (3.50-5.40) 3.79 x10^6/uL (3.50-5.40) Hemoglobin 11.5 g/dL (12.0-15.5) 11.2 g/dL (12.0-15.5) Hematocrit 35.9 % (36.0-47.0) 34.7 % (36.0-47.0) Mean Corpuscular Volume 93 fL (79-100) 92 fL (79-100) Mean Corpuscular Hemoglobin 30 pg (25-35) 30 pg (25-35) Mean Corpuscular Hemoglobin Concent 32 g/dL (31-37) 32 g/dL (31-37) Red Cell Distribution Width 15.1 % (11.5-14.5) 15.3 % (11.5-14.5) Platelet Count 187 x10^3/uL (140-400) 184 x10^3/uL (140-400) Neutrophils (%) (Auto) 90 % (31-73) 89 % (31-73) Lymphocytes (%) (Auto) 5 % (24-48) 4 % (24-48) Monocytes (%) (Auto) 3 % (0-9) 3 % (0-9) Eosinophils (%) (Auto) 2 % (0-3) 4 % (0-3) Basophils (%) (Auto) 0 % (0-3) 0 % (0-3) Neutrophils # (Auto) 10.0 x10^3uL (1.8-7.7) 10.0 x10^3uL (1.8-7.7) Lymphocytes # (Auto) 0.5 x10^3/uL (1.0-4.8) 0.4 x10^3/uL (1.0-4.8) Monocytes # (Auto) 0.3 x10^3/uL (0.0-1.1) 0.4 x10^3/uL (0.0-1.1) Eosinophils # (Auto) 0.2 x10^3/uL (0.0-0.7) 0.5 x10^3/uL (0.0-0.7) Basophils # (Auto) 0.0 x10^3/uL (0.0-0.2) 0.0 x10^3/uL (0.0-0.2) Sodium Level 142 mmol/L (136-145) 141 mmol/L (136-145) Potassium Level 3.3 mmol/L (3.5-5.1) 3.7 mmol/L (3.5-5.1) Chloride Level 107 mmol/L (98-107) 107 mmol/L (98-107) Carbon Dioxide Level 25 mmol/L (21-32) 22 mmol/L (21-32) Anion Gap 10 (6-14) 12 (6-14) Blood Urea Nitrogen 34 mg/dL (7-20) 33 mg/dL (7-20) Creatinine 1.3 mg/dL (0.6-1.0) 1.5 mg/dL (0.6-1.0) Estimated GFR (Cockcroft-Gault) 38.9 33.0 Glucose Level 117 mg/dL (70-99) 100 mg/dL (70-99) Calcium Level 8.9 mg/dL (8.5-10.1) 9.1 mg/dL (8.5-10.1) Laboratory Tests Test 04/11/17 03:30 White Blood Count 11.3 x10^3/uL (4.0-11.0) Red Blood Count 3.79 x10^6/uL (3.50-5.40) Hemoglobin 11.2 g/dL (12.0-15.5) Hematocrit 34.7 % (36.0-47.0) Mean Corpuscular Volume 92 fL (79-100) Mean Corpuscular Hemoglobin 30 pg (25-35) Mean Corpuscular Hemoglobin Concent 32 g/dL (31-37) Red Cell Distribution Width 15.3 % (11.5-14.5) Platelet Count 184 x10^3/uL (140-400) Neutrophils (%) (Auto) 89 % (31-73) Lymphocytes (%) (Auto) 4 % (24-48) Monocytes (%) (Auto) 3 % (0-9) Eosinophils (%) (Auto) 4 % (0-3) Basophils (%) (Auto) 0 % (0-3) Neutrophils # (Auto) 10.0 x10^3uL (1.8-7.7) Lymphocytes # (Auto) 0.4 x10^3/uL (1.0-4.8) Monocytes # (Auto) 0.4 x10^3/uL (0.0-1.1) Eosinophils # (Auto) 0.5 x10^3/uL (0.0-0.7) Basophils # (Auto) 0.0 x10^3/uL (0.0-0.2) Sodium Level 141 mmol/L (136-145) Potassium Level 3.7 mmol/L (3.5-5.1) Chloride Level 107 mmol/L (98-107) Carbon Dioxide Level 22 mmol/L (21-32) Anion Gap 12 (6-14) Blood Urea Nitrogen 33 mg/dL (7-20) Creatinine 1.5 mg/dL (0.6-1.0) Estimated GFR (Cockcroft-Gault) 33.0 Glucose Level 100 mg/dL (70-99) Calcium Level 9.1 mg/dL (8.5-10.1) Problem List Problems Medical Problems: (1) Candidiasis Status: Acute (2) Cellulitis Status: Acute (3) UTI (urinary tract infection) Status: Acute Assessment/Plan Bilateral leg cellulitis recurrent, Skin lesions biopsied by dermatology 2 years ago but patient doesn't know what the results were. Would consider biopsy of lesion but high risk for wound complications. Best done as elective outpatient after cellulitis has resolved. Problems: KACIE JACOB MD Apr 11, 2017 08:14
--- NOTE | 2017-04-11 09:10 | PDOC ---
Infectious Disease Note Subjective Subjective feeling ok ROS ROS GEN: Denies fevers, chills, sweats HEENT: Denies blurred vision, sore throat CV: Denies chest pain RESP: Denies shortness of air, cough GI: Denies n/v/d NEURO: Denies confusion, dizziness MSK: Denies weakness, joint pain/swelling Vital Sign Vital Signs Vital Signs Date Time Temp Pulse Resp B/P (MAP) Pulse Ox O2 Delivery O2 Flow Rate FiO2 04/11/17 08:06 Room Air 04/11/17 07:00 97.9 87 20 120/58 (78) 95 97.9 Physical Exam PHYSICAL EXAM GENERAL: NAD, Alert HEENT: PERRL, OC/OP NECK: Supple, no JVD, no LN LUNGS: Clear HEART: S1S2, no gallop, no murmur ABD: Soft, NT, no organomegaly, no rebound EXT: No edema, no cyanosis,, foot and leg back to her normal 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: Alert, oriented x 3, no focal neurologic deficit SKIN: No rash IV: ok Labs Lab Laboratory Tests Test 04/11/17 03:30 White Blood Count 11.3 x10^3/uL (4.0-11.0) Red Blood Count 3.79 x10^6/uL (3.50-5.40) Hemoglobin 11.2 g/dL (12.0-15.5) Hematocrit 34.7 % (36.0-47.0) Mean Corpuscular Volume 92 fL (79-100) Mean Corpuscular Hemoglobin 30 pg (25-35) Mean Corpuscular Hemoglobin Concent 32 g/dL (31-37) Red Cell Distribution Width 15.3 % (11.5-14.5) Platelet Count 184 x10^3/uL (140-400) Neutrophils (%) (Auto) 89 % (31-73) Lymphocytes (%) (Auto) 4 % (24-48) Monocytes (%) (Auto) 3 % (0-9) Eosinophils (%) (Auto) 4 % (0-3) Basophils (%) (Auto) 0 % (0-3) Neutrophils # (Auto) 10.0 x10^3uL (1.8-7.7) Lymphocytes # (Auto) 0.4 x10^3/uL (1.0-4.8) Monocytes # (Auto) 0.4 x10^3/uL (0.0-1.1) Eosinophils # (Auto) 0.5 x10^3/uL (0.0-0.7) Basophils # (Auto) 0.0 x10^3/uL (0.0-0.2) Sodium Level 141 mmol/L (136-145) Potassium Level 3.7 mmol/L (3.5-5.1) Chloride Level 107 mmol/L (98-107) Carbon Dioxide Level 22 mmol/L (21-32) Anion Gap 12 (6-14) Blood Urea Nitrogen 33 mg/dL (7-20) Creatinine 1.5 mg/dL (0.6-1.0) Estimated GFR (Cockcroft-Gault) 33.0 Glucose Level 100 mg/dL (70-99) Calcium Level 9.1 mg/dL (8.5-10.1) Objective Assessment Rt foot cellulitis Lymphedema Leukocytosis Skin tags, very large BC 1/2 G + cocci, id pending Plan Plan of Care cefazolin leg elevation d/w dr Adams once bc final, pt can be d/c ed home on po, RN to call me with blood culture results EDUARDO RIZVI MD Apr 11, 2017 09:10
--- NOTE | 2017-04-11 09:50 | PDOC ---
PROGRESS NOTES Chief Complaint Chief Complaint 1. Bilateral leg pain, swelling, chronic lymphedema, r.o cellulitis 2. GPC 1 BOTTLE, likely contaminant 2. Obesity BMI 37 3. HTN, gERD History of Present Illness History of Present Illness asleep did not awaken For ff up BC - dw RN and ID LEgs look good NO fevers, WBC 11 Does not want SNU Agreeable to HH PLAN: Kefflex on dc when BC ok HH on dc Dw Dr Sagastume Vitals Vitals Vital Signs Date Time Temp Pulse Resp B/P (MAP) Pulse Ox O2 Delivery O2 Flow Rate FiO2 04/11/17 08:06 Room Air 04/11/17 07:00 97.9 87 20 120/58 (78) 95 97.9 Physical Exam General: Alert, Oriented X3, Cooperative, No acute distress Lungs: Clear Abdomen: Normal bowel sounds, Soft, No tenderness, No hepatosplenomegaly, No masses Extremities: Other (bilateral leg edema with dry skin and exophytic skin lesions largest 3x3cm TTP ) Labs LABS Laboratory Tests Test 04/11/17 03:30 White Blood Count 11.3 x10^3/uL (4.0-11.0) Red Blood Count 3.79 x10^6/uL (3.50-5.40) Hemoglobin 11.2 g/dL (12.0-15.5) Hematocrit 34.7 % (36.0-47.0) Mean Corpuscular Volume 92 fL (79-100) Mean Corpuscular Hemoglobin 30 pg (25-35) Mean Corpuscular Hemoglobin Concent 32 g/dL (31-37) Red Cell Distribution Width 15.3 % (11.5-14.5) Platelet Count 184 x10^3/uL (140-400) Neutrophils (%) (Auto) 89 % (31-73) Lymphocytes (%) (Auto) 4 % (24-48) Monocytes (%) (Auto) 3 % (0-9) Eosinophils (%) (Auto) 4 % (0-3) Basophils (%) (Auto) 0 % (0-3) Neutrophils # (Auto) 10.0 x10^3uL (1.8-7.7) Lymphocytes # (Auto) 0.4 x10^3/uL (1.0-4.8) Monocytes # (Auto) 0.4 x10^3/uL (0.0-1.1) Eosinophils # (Auto) 0.5 x10^3/uL (0.0-0.7) Basophils # (Auto) 0.0 x10^3/uL (0.0-0.2) Sodium Level 141 mmol/L (136-145) Potassium Level 3.7 mmol/L (3.5-5.1) Chloride Level 107 mmol/L (98-107) Carbon Dioxide Level 22 mmol/L (21-32) Anion Gap 12 (6-14) Blood Urea Nitrogen 33 mg/dL (7-20) Creatinine 1.5 mg/dL (0.6-1.0) Estimated GFR (Cockcroft-Gault) 33.0 Glucose Level 100 mg/dL (70-99) Calcium Level 9.1 mg/dL (8.5-10.1) Review of Systems Review of Systems asleep Assessment and Plan Assessmemt and Plan Problems Medical Problems: (1) Candidiasis Status: Acute (2) Cellulitis Status: Acute (3) UTI (urinary tract infection) Status: Acute Problems: Comment Review of Relevant I have reviewed the following items javan (where applicable) has been applied. Labs Laboratory Tests Test 04/09/17 11:50 04/10/17 03:25 04/11/17 03:30 Erythrocyte Sedimentation Rate 40 (0-25) White Blood Count 11.1 x10^3/uL (4.0-11.0) 11.3 x10^3/uL (4.0-11.0) Red Blood Count 3.84 x10^6/uL (3.50-5.40) 3.79 x10^6/uL (3.50-5.40) Hemoglobin 11.5 g/dL (12.0-15.5) 11.2 g/dL (12.0-15.5) Hematocrit 35.9 % (36.0-47.0) 34.7 % (36.0-47.0) Mean Corpuscular Volume 93 fL (79-100) 92 fL (79-100) Mean Corpuscular Hemoglobin 30 pg (25-35) 30 pg (25-35) Mean Corpuscular Hemoglobin Concent 32 g/dL (31-37) 32 g/dL (31-37) Red Cell Distribution Width 15.1 % (11.5-14.5) 15.3 % (11.5-14.5) Platelet Count 187 x10^3/uL (140-400) 184 x10^3/uL (140-400) Neutrophils (%) (Auto) 90 % (31-73) 89 % (31-73) Lymphocytes (%) (Auto) 5 % (24-48) 4 % (24-48) Monocytes (%) (Auto) 3 % (0-9) 3 % (0-9) Eosinophils (%) (Auto) 2 % (0-3) 4 % (0-3) Basophils (%) (Auto) 0 % (0-3) 0 % (0-3) Neutrophils # (Auto) 10.0 x10^3uL (1.8-7.7) 10.0 x10^3uL (1.8-7.7) Lymphocytes # (Auto) 0.5 x10^3/uL (1.0-4.8) 0.4 x10^3/uL (1.0-4.8) Monocytes # (Auto) 0.3 x10^3/uL (0.0-1.1) 0.4 x10^3/uL (0.0-1.1) Eosinophils # (Auto) 0.2 x10^3/uL (0.0-0.7) 0.5 x10^3/uL (0.0-0.7) Basophils # (Auto) 0.0 x10^3/uL (0.0-0.2) 0.0 x10^3/uL (0.0-0.2) Sodium Level 142 mmol/L (136-145) 141 mmol/L (136-145) Potassium Level 3.3 mmol/L (3.5-5.1) 3.7 mmol/L (3.5-5.1) Chloride Level 107 mmol/L (98-107) 107 mmol/L (98-107) Carbon Dioxide Level 25 mmol/L (21-32) 22 mmol/L (21-32) Anion Gap 10 (6-14) 12 (6-14) Blood Urea Nitrogen 34 mg/dL (7-20) 33 mg/dL (7-20) Creatinine 1.3 mg/dL (0.6-1.0) 1.5 mg/dL (0.6-1.0) Estimated GFR (Cockcroft-Gault) 38.9 33.0 Glucose Level 117 mg/dL (70-99) 100 mg/dL (70-99) Calcium Level 8.9 mg/dL (8.5-10.1) 9.1 mg/dL (8.5-10.1) Laboratory Tests Test 04/11/17 03:30 White Blood Count 11.3 x10^3/uL (4.0-11.0) Red Blood Count 3.79 x10^6/uL (3.50-5.40) Hemoglobin 11.2 g/dL (12.0-15.5) Hematocrit 34.7 % (36.0-47.0) Mean Corpuscular Volume 92 fL (79-100) Mean Corpuscular Hemoglobin 30 pg (25-35) Mean Corpuscular Hemoglobin Concent 32 g/dL (31-37) Red Cell Distribution Width 15.3 % (11.5-14.5) Platelet Count 184 x10^3/uL (140-400) Neutrophils (%) (Auto) 89 % (31-73) Lymphocytes (%) (Auto) 4 % (24-48) Monocytes (%) (Auto) 3 % (0-9) Eosinophils (%) (Auto) 4 % (0-3) Basophils (%) (Auto) 0 % (0-3) Neutrophils # (Auto) 10.0 x10^3uL (1.8-7.7) Lymphocytes # (Auto) 0.4 x10^3/uL (1.0-4.8) Monocytes # (Auto) 0.4 x10^3/uL (0.0-1.1) Eosinophils # (Auto) 0.5 x10^3/uL (0.0-0.7) Basophils # (Auto) 0.0 x10^3/uL (0.0-0.2) Sodium Level 141 mmol/L (136-145) Potassium Level 3.7 mmol/L (3.5-5.1) Chloride Level 107 mmol/L (98-107) Carbon Dioxide Level 22 mmol/L (21-32) Anion Gap 12 (6-14) Blood Urea Nitrogen 33 mg/dL (7-20) Creatinine 1.5 mg/dL (0.6-1.0) Estimated GFR (Cockcroft-Gault) 33.0 Glucose Level 100 mg/dL (70-99) Calcium Level 9.1 mg/dL (8.5-10.1) Microbiology 04/09/17 Blood Culture - Preliminary, Resulted 04/09/17 Blood Culture Result 1 (SALTY) - Preliminary, Resulted Medications Current Medications Sodium Chloride 1,000 ml @ 1,000 mls/hr 1X ONCE IV Last administered on 04/09 07:11; Start 04/09/17 at 06:15; Stop 04/09/17 at 07:14; Status DC Acetaminophen (Tylenol) 1,000 mg 1X ONCE PO Last administered on 04/09/17 07 :11; Start 04/09/17 at 06:15; Stop 04/09/17 at 06:16; Status DC Vancomycin HCl (Vanco Per Pharmacy) 1 each PRN DAILY PRN MC SEE COMMENTS; Start 04/09/17 at 07:30; Stop 04/09/17 at 12:00; Status DC Vancomycin HCl 2 gm/Dextrose 500 ml @ 250 mls/hr 1X ONCE IV Last administered on 04/09/17 08:22; Start 04/09/17 at 08:00; Stop 04/09/17 at 09 :59; Status DC Ceftriaxone Sodium 50 ml @ 100 mls/hr 1X ONCE IV Last administered on 07:43; Start 04/09/17 at 07:30; Stop 04/09/17 at 07:59; Status DC Fluconazole (Diflucan) 100 mg 1X ONCE PO Last administered on 04/09/17 07:43 ; Start 04/09/17 at 07:30; Stop 04/09/17 at 07:31; Status DC Acetaminophen (Tylenol) 650 mg PRN Q4HRS PRN PO FEVER Last administered on 05:17; Start 04/09/17 at 08:00; Stop 04/10/17 at 07:59; Status DC Allopurinol (Zyloprim) 100 mg DAILY PO Last administered on 04/11/17 08:05; Start 04/09/17 at 12:00 Aspirin (Ecotrin) 81 mg DAILY PO Last administered on 04/11/17 08:05; Start 04/09/17 at 12:00 Benzonatate (Tessalon Perle) 100 mg TID PO Last administered on 04/11/17 08: 05; Start 04/09/17 at 14:00 Citalopram Hydrobromide (CeleXA) 10 mg DAILY PO ; Start 04/09/17 at 12:00; Stop 04/09/17 at 12:09; Status DC Furosemide (Lasix) 40 mg DAILY PO Last administered on 04/11/17 08:05; Start 04/10/17 at 09:00 Levothyroxine Sodium (Synthroid) 75 mcg DAILY07 PO Last administered on 05:52; Start 04/09/17 at 12:00 Pantoprazole Sodium (Protonix) 40 mg DAILYAC PO Last administered on 05:52; Start 04/09/17 at 12:00 Simvastatin (Zocor) 80 mg QHS PO Last administered on 04/10/17 21:00; Start 04/09/17 at 21:00 Ibuprofen (Motrin) 400 mg PRN Q6HRS PRN PO INFLAMMATION Last administered on 08:33; Start 04/09/17 at 11:30; Stop 04/10/17 at 10:52; Status DC Furosemide (Lasix) 40 mg 1X ONCE IVP Last administered on 04/09/17 11:40; Start 04/09/17 at 11:30; Stop 04/09/17 at 11:31; Status DC Cefazolin Sodium 1 gm/Dextrose 50 ml @ 100 mls/hr Q8HRS IV ; Start 04/09/17 at 14:00; Status UNV Cefazolin Sodium (Ancef) 1 gm Q8HRS IVP Last administered on 04/11/17 05:52; Start 04/09/17 at 14:00 Citalopram Hydrobromide (CeleXA) 10 mg HS PO Last administered on 04/10/17 21 :00; Start 04/09/17 at 21:00 Potassium Chloride (Klor-Con) 40 meq 1X ONCE PO Last administered on 10:28; Start 04/10/17 at 10:00; Stop 04/10/17 at 10:01; Status DC Potassium Chloride (Klor-Con) 40 meq DAILYWBKFT PO Last administered on 08:05; Start 04/11/17 at 08:00 Acetaminophen (Tylenol) 650 mg PRN Q6HRS PRN PO pain Last administered on 04/11 08:04; Start 04/10/17 at 11:00 Ibuprofen (Motrin) 600 mg PRN Q6HRS PRN PO INFLAMMATION; Start 04/10/17 at 11: 00 Lidocaine (Lidoderm) 1 patch DAILY TD Last administered on 04/11/17 08:05; Start 04/10/17 at 11:00 Active Scripts Active Tessalon Perle (Benzonatate) 100 Mg Capsule 1 Cap PO TID Minocycline Hcl 100 Mg Tablet 1 Tab PO BID 7 Days Cephalexin 250 Mg Capsule 500 Mg PO QID 7 Days Reported Celexa (Citalopram Hydrobromide) 10 Mg Tablet 10 Mg PO DAILY Allopurinol 100 Mg Tablet 100 Mg PO DAILY Pantoprazole Sodium 40 Mg Tablet.dr 40 Mg PO DAILY Aspir-Low (Aspirin) 81 Mg Tablet.dr 1 Tab PO DAILY Levothyroxine Sodium 75 Mcg Tablet 1 Tab PO DAILY Simvastatin 80 Mg Tablet 1 Tab PO QHS Furosemide 40 Mg Tablet 1 Tab PO DAILY Vitals/I & O Vital Sign - Last 24 Hours 04/10/17 04/10/17 04/10/17 04/10/17 10:30 14:30 19:00 20:00 Temp 97.9 98.1 98.8 97.9 98.1 98.8 Pulse 90 84 96 Resp 18 18 20 B/P (MAP) 116/50 (72) 105/57 (73) 112/53 (72) Pulse Ox 95 99 98 O2 Delivery Room Air Room Air Room Air Room Air 04/10/17 04/11/17 04/11/17 04/11/17 23:00 03:00 07:00 08:06 Temp 97.9 96.1 97.9 97.9 96.1 97.9 Pulse 91 84 87 Resp 20 20 20 B/P (MAP) 104/49 (67) 108/37 (60) 120/58 (78) Pulse Ox 95 95 95 O2 Delivery Room Air Room Air Room Air Intake and Output 04/10/17 04/10/17 04/11/17 15:00 23:00 07:00 Intake Total 180 ml 420 ml Balance 180 ml 420 ml ELISABET SALGUERO MD Apr 11, 2017 09:50
[2017-04-11 11:00] VITALS: BP 127/55
[2017-04-11 15:00] VITALS: BP 123/63
[2017-04-11 19:25] VITALS: BP 95/47
[2017-04-11] MEDS: LACTOBACILLUS RHAMNOSUS GG 1 CAPSULE. PO SCH (21:39)
[2017-04-11] MEDS: SIMVASTATIN 40 MG TABLET. PO SCH (21:39)
[2017-04-11] MEDS: CITALOPRAM 10 MG TABLET. PO SCH (21:40)
[2017-04-11 23:13] VITALS: BP 119/68
[2017-04-12 03:08] VITALS: BP 113/60
[2017-04-12] MEDS: LEVOTHYROXINE 75 MCG TABLET PO SCH (05:01)
[2017-04-12] MEDS: PANTOPRAZOLE 40 MG TABLET.DR. PO SCH (05:01)
[2017-04-12] MEDS: ceFAZolin SODIUM IV Push 1 GM VIAL. IVP SCH ×2 (05:01→14:00)
[2017-04-12 07:00] VITALS: BP_SYST 138; BP_SYST 148; BP_SYST 172; BP_DIAS 49; BP_DIAS 55; BP_DIAS 57
--- NOTE | 2017-04-12 07:48 | RAD ---
EXAM: 1. CT head without contrast. 2. CT cervical spine without contrast. HISTORY: Fall with head injury. TECHNIQUE: Computed tomography of the head and cervical spine was performed without intravenous contrast. COMPARISON: 10/13/2016. FINDINGS: There is no intracranial hemorrhage. Hypoattenuation within the periventricular white matter indicates moderate chronic small vessel ischemic change. Prominence of the lateral ventricles and hemispheric sulci indicate moderate atrophy. The left maxillary sinus is mostly opacified and contains some fluid and denser material consistent with chronic fungal elements or inspissated secretions. There are changes of left cataract surgery. The turbinates and ethmoid air cells have been partially resected. The temporal bones and calvarium are unremarkable. 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 Atherosclerotic calcifications are noted. Alignment is maintained. 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 This is unchanged. There is also severe osteoarthritis along the right lateral C1-2 articulation. No fractures are identified. Degenerative disc disease is moderate to severe from C5 through T1 and moderate more superiorly. There is no prevertebral soft tissue swelling. At C2-3, there is no significant stenosis. At C3-4, there is a small posterior disc bulge. The facet joints appear autofused. Foraminal stenosis is moderate to severe on the right and moderate on the left. Central canal stenosis is mild. At C4-5, there is a moderate posterior disc bulge. Facet and uncovertebral osteoarthritis are moderate on the left greater than right. Foraminal stenosis is moderate to severe bilaterally. Central canal stenosis is mild. At C5-6, there is a moderate posterior disc-osteophyte complex, largest in the left paracentral territory. Central canal stenosis appears moderate. Facet and uncovertebral osteoarthritis are moderate to severe on the left greater than right. Foraminal stenosis is moderate to severe on the left and moderate on the right. At C6-7, there is a moderate posterior disc-osteophyte complex. Uncovertebral osteoarthritis is moderate to severe bilaterally. Foraminal stenosis is moderate on the left and moderate to severe on the right. Central canal stenosis appears moderate. At C7-T1, there is a small posterior disc-osteophyte complex. Central canal stenosis appears at least mild. Foraminal stenosis is moderate bilaterally. IMPRESSION: 1. No acute intracranial findings. 2. Moderate atrophy and chronic small vessel ischemic white matter change. 3. 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 4. No cervical fracture or malalignment. 5. Diffuse moderate to severe degenerative changes result in multilevel mild to moderate central canal stenosis and diffuse moderate to severe foraminal stenosis as detailed above. Refer to prior MRI for more detail. 6. Correlate for a component of inflammatory arthritis at C1-2. *One or more of the following individualized dose reduction techniques were utilized for this examination: 1. Automated exposure control. 2. Adjustment of the mA and/or kV according to patient size. 3. Use of iterative reconstruction technique.
[2017-04-12] MEDS: LIDOCAINE (700MG/PATCH) PATCH. TD SCH (09:00)
[2017-04-12] MEDS: ASPIRIN ENTERIC COATED 81 MG TABLET.DR. PO SCH (09:07)
[2017-04-12] MEDS: FUROSEMIDE 40 MG TABLET. PO SCH (09:07)
[2017-04-12] MEDS: ALLOPURINOL 100 MG TABLET. PO SCH (09:07)
[2017-04-12] MEDS: POTASSIUM CHLORIDE 20 MEQ TABLET.ER. PO SCH (09:08)
[2017-04-12] MEDS: LACTOBACILLUS RHAMNOSUS GG 1 CAPSULE. PO SCH (09:08)
[2017-04-12] MEDS: BENZONATATE 100 MG CAPSULE. PO SCH ×2 (09:13→14:52)
--- NOTE | 2017-04-12 09:56 | PDOC3 ---
Discharge Summary Visit Information Date of Admission: Apr 09, 2017 Date of Discharge: Apr 12, 2017 Admitting Diagnosis Comment: 1. Bilateral leg pain, swelling, chronic lymphedema, r.o cellulitis 2. GPC 1 BOTTLE, likely contaminant 2. Obesity BMI 37 3. HTN, gERD Final Diagnosis Problems Medical Problems: (1) Candidiasis Status: Acute (2) Cellulitis Status: Acute (3) UTI (urinary tract infection) Status: Acute Brief Hospital Course Allergies Allergies Coded Allergies Type Severity Reaction Last Updated Verified No Known Drug Allergies 03/02/14 No Vital Signs Vital Signs Date Time Temp Pulse Resp B/P (MAP) Pulse Ox O2 Delivery O2 Flow Rate FiO2 04/12/17 07:00 83 18 138/57 (84) 96 Room Air 148/55 (86) 172/49 (90) 04/12/17 03:08 97.9 97.9 Lab Results Laboratory Tests Test 04/11/17 03:30 White Blood Count 11.3 x10^3/uL (4.0-11.0) Red Blood Count 3.79 x10^6/uL (3.50-5.40) Hemoglobin 11.2 g/dL (12.0-15.5) Hematocrit 34.7 % (36.0-47.0) Mean Corpuscular Volume 92 fL (79-100) Mean Corpuscular Hemoglobin 30 pg (25-35) Mean Corpuscular Hemoglobin Concent 32 g/dL (31-37) Red Cell Distribution Width 15.3 % (11.5-14.5) Platelet Count 184 x10^3/uL (140-400) Neutrophils (%) (Auto) 89 % (31-73) Lymphocytes (%) (Auto) 4 % (24-48) Monocytes (%) (Auto) 3 % (0-9) Eosinophils (%) (Auto) 4 % (0-3) Basophils (%) (Auto) 0 % (0-3) Neutrophils # (Auto) 10.0 x10^3uL (1.8-7.7) Lymphocytes # (Auto) 0.4 x10^3/uL (1.0-4.8) Monocytes # (Auto) 0.4 x10^3/uL (0.0-1.1) Eosinophils # (Auto) 0.5 x10^3/uL (0.0-0.7) Basophils # (Auto) 0.0 x10^3/uL (0.0-0.2) Sodium Level 141 mmol/L (136-145) Potassium Level 3.7 mmol/L (3.5-5.1) Chloride Level 107 mmol/L (98-107) Carbon Dioxide Level 22 mmol/L (21-32) Anion Gap 12 (6-14) Blood Urea Nitrogen 33 mg/dL (7-20) Creatinine 1.5 mg/dL (0.6-1.0) Estimated GFR (Cockcroft-Gault) 33.0 Glucose Level 100 mg/dL (70-99) Calcium Level 9.1 mg/dL (8.5-10.1) Brief Hospital Course Ms. Campos is a 86 old female who is bounceback again for cellulitis of bilateral LE that does not look that bad at all, co managed with ID, was on IV cefazolin, BC GPC x 1 , likely contaminant, non septic, labs and afebrile, To HH with PO kefflex. Fell on day of dc, HEad and neck hurt, CT done neg for any new pathology - all old DJD etc, Needs SNU but after days and days of discussion with her still refuses, agreed to HH Seen and examined MAR done Dw RN Prab Discharge Information Condition at Discharge: Improved, Stable Disposition/Orders: D/C to Home w/ HH Scheduled Allopurinol (Allopurinol), 100 MG PO DAILY, (Reported) Aspirin (Aspir-Low), 1 TAB PO DAILY, (Reported) Benzonatate (Tessalon Perle), 1 CAP PO TID Cephalexin (Cephalexin), 500 MG PO QID Citalopram Hydrobromide (Celexa), 10 MG PO DAILY, (Reported) Furosemide (Furosemide), 1 TAB PO DAILY, (Reported) Levothyroxine Sodium (Levothyroxine Sodium), 1 TAB PO DAILY, (Reported) Minocycline Hcl (Minocycline Hcl), 1 TAB PO BID Pantoprazole Sodium (Pantoprazole Sodium), 40 MG PO DAILY, (Reported) Simvastatin (Simvastatin), 1 TAB PO QHS, (Reported) ELISABET SALGUERO MD Apr 12, 2017 09:56
--- NOTE | 2017-04-12 10:24 | PDOC ---
Infectious Disease Note Subjective Subjective feeling good ROS ROS GEN: Denies fevers, chills, sweats HEENT: Denies blurred vision, sore throat CV: Denies chest pain RESP: Denies shortness of air, cough GI: Denies n/v/d NEURO: Denies confusion, dizziness MSK: Denies weakness, joint pain/swelling Vital Sign Vital Signs Vital Signs Date Time Temp Pulse Resp B/P (MAP) Pulse Ox O2 Delivery O2 Flow Rate FiO2 04/12/17 08:00 Room Air 04/12/17 07:00 83 18 138/57 (84) 96 148/55 (86) 172/49 (90) 04/12/17 03:08 97.9 97.9 Physical Exam PHYSICAL EXAM GENERAL: NAD, Alert HEENT: PERRL, OC/OP NECK: Supple, no JVD, no LN LUNGS: Clear HEART: S1S2, no gallop, no murmur ABD: Soft, NT, no organomegaly, no rebound EXT: No edema, no cyanosis TELEVISION TECHNICIAN: Alert, oriented x 3, no focal neurologic deficit SKIN: No rash IV: ok Objective Assessment Rt foot cellulitis Lymphedema Leukocytosis Skin tags, very large BC 1/2 G + cocci, strep Plan Plan of Care cefazolin ,, to keflex, d/c ok leg elevation f/u with me in 2 wks EDUARDO RIZVI MD Apr 12, 2017 10:24
[2017-04-12 10:38] VITALS: BP 112/48
== END 2017-04-12 16:00 | disposition home health service (06) | DRG 603 ==
LOC: ER 05:43 → 5 NORTH 08:34
PROVIDERS: ADMIT Internal Medicine; ATTEND Internal Medicine
DX: L03.115 Cellulitis of right lower limb (principal); N39.0 Urinary tract infection, site not specified; B37.9 Candidiasis, unspecified; E03.9 Hypothyroidism, unspecified; E66.9 Obesity, unspecified; Z68.37 Body mass index [BMI] 37.0-37.9, adult; E78.00 Pure hypercholesterolemia, unspecified; E78.5 Hyperlipidemia, unspecified; I12.9 Hypertensive chronic kidney disease with stage 1 through stage 4 chronic kidney disease, or unspecified chronic kidney disease; I89.0 Lymphedema, not elsewhere classified; K21.9 Gastro-esophageal reflux disease without esophagitis; M10.9 Gout, unspecified; N18.9 Chronic kidney disease, unspecified; Z82.49 Family history of ischemic heart disease and other diseases of the circulatory system; Z90.49 Acquired absence of other specified parts of digestive tract; Z90.710 Acquired absence of both cervix and uterus; Z85.9 Personal history of malignant neoplasm, unspecified; Z60.2 Problems related to living alone
CPT/HCPCS: 36415; 70450; 72125; 80048; 80053; 81001; 83605; 84439; 84443; 84481; 85007; 85025; 85651; 87040; 87086; 87205; 87804; 96361; 96365; 96375; J0690; J1940; J3370; J7030; 97116; 97535; 99285-25

== ENCOUNTER 2018-01-06 19:14 | Inpatient (IN) | payer MEDICARE ==
[~2018-01-06] VITALS: Ht 152.4 cm; Wt 90.7 kg
[~2018-01-06 19:14] MED LIST changes: +CITA40TA5 PO; -FERR-26 PO; +FERR325T14 PO; +FEXO1TAB31 PO; +LEVO88TA4 PO; -SIMV80TA3 PO; +SIMV80TA7 PO
[2018-01-06] MEDS: IV NORMAL SALINE 1000ML BAG 1,380 ML IV SCH ×2 (20:15→21:15)
[2018-01-06] MEDS ORDERED: ACETAMINOPHEN 500 MG TABLET PO ONE (20:15)
[2018-01-06] MEDS ORDERED: IV NORMAL SALINE 500ML BAG 500 ML IV PRN (20:15)
[2018-01-06] MEDS ORDERED: PIPERACILLIN/TAZOBACTAM 3.375 GM in IV NORMAL SALINE 50ML 50 ML IV ONE (20:15)
[2018-01-06] MEDS ORDERED: VANCOMYCIN 2 GM in IV NORMAL SALINE 500ML BAG 500 ML IV ONE (20:15)
--- NOTE | 2018-01-06 20:31 | PHYS DOC ---
Past Medical History Past Medical History: Cancer, GERD, High Cholesterol, Hypothyroid, Renal Disease, Vascular Disease, Other Additional Past Medical Histor: lymphEDEMA BLE, CERVIX CA,GOUT, CELLULITIS Past Surgical History: Appendectomy, Cancer Surgery, Hysterectomy, Oophorectomy , Other Additional Past Surgical Histo: RIGHT NEPHRECTOMY Alcohol Use: None Drug Use: None Adult General Chief Complaint Chief Complaint: FEVER HPI HPI Patient is a 87 year old female with history of renal disease, high cholesterol , hypothyroidism, who presents today complaining of fever, slight cough, body aches and chills that began today. Patient states her temperature was 103 at home. Denies any nasal congestion. She states she has history of lymphedema to bilateral lower extremities. PCP Dr Dalton Review of Systems Review of Systems Constitutional: Reports fever Eyes: Denies change in visual acuity, redness, or eye pain [] HENT: Denies nasal congestion or sore throat [] Respiratory: Reports slight cough, denies shortness of breath [] Cardiovascular: No additional information not addressed in HPI [] GI: Denies abdominal pain, nausea, vomiting, bloody stools or diarrhea [] : Denies dysuria or hematuria [] Musculoskeletal: Denies back pain or joint pain [] Integument: Denies rash or skin lesions [] Neurologic: Denies headache, focal weakness or sensory changes [] All other systems were reviewed and found to be within normal limits, except as documented in this note. Current Medications Current Medications Current Medications Medications (Trade) Dose Ordered Sig/Dimple Start Time Stop Time Status Last Admin Dose Admin Acetaminophen (Tylenol) 1,000 mg 1X ONCE 01/06/18 20:15 01/06/18 20:16 DC 01/06/18 20:15 1,000 MG Morphine Sulfate (Morphine Sulfate) 5 mg 1X ONCE 01/06/18 22:30 01/06/18 22:31 DC 01/06/18 22:30 5 MG Piperacillin Sod/ Tazobactam Sod (Zosyn Per Pharmacy) 1 each PRN DAILY PRN 01/06/18 22:00 Piperacillin Sod/ Tazobactam Sod 3.375 gm/Sodium Chloride 50 ml @ 100 mls/hr 1X ONCE 01/06/18 20:15 01/06/18 20:44 DC 01/06/18 20:40 100 MLS/HR Sodium Chloride 500 ml @ 1,000 mls/hr PRN Q30MIN PRN 01/06/18 20:15 Vancomycin HCl (Vanco Per Pharmacy) 1 each PRN DAILY PRN 01/06/18 20:15 Vancomycin HCl 2 gm/Sodium Chloride 500 ml @ 250 mls/hr 1X ONCE 01/06/18 20:15 01/06/18 22:14 DC 01/06/18 21:37 250 MLS/HR Allergies Allergies Allergies Coded Allergies Type Severity Reaction Last Updated Verified No Known Drug Allergies 03/02/14 No Physical Exam Physical Exam Constitutional: Well developed, well nourished, no acute distress, non-toxic appearance. [] HENT: Normocephalic, atraumatic, bilateral external ears normal, oropharynx moist, no oral exudates, nose normal. [] Eyes: PERRLA, EOMI, conjunctiva normal, no discharge. [] Neck: Normal range of motion, no tenderness, supple, no stridor. [] Cardiovascular:Heart rate regular rhythm, no murmur [] Lungs & Thorax: Bilateral breath sounds clear to auscultation [] Abdomen: Bowel sounds normal, soft, no tenderness, no masses, no pulsatile masses. [] Skin: Warm, dry, no erythema, no rash. [] Back: No tenderness, no CVA tenderness. [] Extremities: , bilateral lower extremities with +3 chronic edema, redness to bilateral lower extremities consistent with cellulitis. Skin lesions noted to bilateral lower extremities. Right lower extremity worse than left. Neurologic: Alert and oriented X 3, normal motor function, normal sensory function, no focal deficits noted. Cranial nerves II through XII intact Psychologic: Affect normal, judgement normal, mood normal. [] Current Patient Data Vital Signs Vital Signs Date Time Temp Pulse Resp B/P (MAP) Pulse Ox O2 Delivery O2 Flow Rate FiO2 01/06/18 22:30 95 Room Air Lab Values Laboratory Tests Test 01/06/18 20:20 01/06/18 21:39 01/06/18 22:20 White Blood Count 12.4 x10^3/uL (4.0-11.0) H Red Blood Count 4.29 x10^6/uL (3.50-5.40) Hemoglobin 13.2 g/dL (12.0-15.5) Hematocrit 39.3 % (36.0-47.0) Mean Corpuscular Volume 92 fL (79-100) Mean Corpuscular Hemoglobin 31 pg (25-35) Mean Corpuscular Hemoglobin Concent 34 g/dL (31-37) Red Cell Distribution Width 15.5 % (11.5-14.5) H Platelet Count 242 x10^3/uL (140-400) Neutrophils (%) (Auto) 86 % (31-73) H Lymphocytes (%) (Auto) 8 % (24-48) L Monocytes (%) (Auto) 5 % (0-9) Eosinophils (%) (Auto) 1 % (0-3) Basophils (%) (Auto) 0 % (0-3) Neutrophils # (Auto) 10.7 x10^3uL (1.8-7.7) H Lymphocytes # (Auto) 1.0 x10^3/uL (1.0-4.8) Monocytes # (Auto) 0.6 x10^3/uL (0.0-1.1) Eosinophils # (Auto) 0.1 x10^3/uL (0.0-0.7) Basophils # (Auto) 0.0 x10^3/uL (0.0-0.2) Segmented Neutrophils % 81 % (35-66) H Band Neutrophils % 5 % (0-9) Lymphocytes % 9 % (24-48) L Monocytes % 4 % (0-10) Eosinophils % 1 % (0-5) Platelet Estimate Adequate (ADEQUATE) Sodium Level 139 mmol/L (136-145) Potassium Level 4.1 mmol/L (3.5-5.1) Chloride Level 102 mmol/L (98-107) Carbon Dioxide Level 30 mmol/L (21-32) Anion Gap 7 (6-14) Blood Urea Nitrogen 30 mg/dL (7-20) H Creatinine 1.6 mg/dL (0.6-1.0) H Estimated GFR (Cockcroft-Gault) 30.6 BUN/Creatinine Ratio 19 (6-20) Glucose Level 107 mg/dL (70-99) H Lactic Acid Level 2.5 mmol/L (0.4-2.0) H Calcium Level 9.2 mg/dL (8.5-10.1) Total Bilirubin 0.4 mg/dL (0.2-1.0) Aspartate Amino Transferase (AST) 16 U/L (15-37) Alanine Aminotransferase (ALT) 13 U/L (14-59) L Alkaline Phosphatase 88 U/L (46-116) Total Protein 8.1 g/dL (6.4-8.2) Albumin 3.7 g/dL (3.4-5.0) Albumin/Globulin Ratio 0.8 (1.0-1.7) L Lipase 207 U/L (73-393) Procalcitonin < 0.10 ng/mL (0.00-0.10) Influenza Type A Antigen Negative (NEGATIVE) Influenza Type B Antigen Negative (NEGATIVE) Urine Collection Type Unknown Urine Color Yellow Urine Clarity Cloudy Urine pH 7.0 Urine Specific [place] 1.015 Urine Protein Negative mg/dL (NEG-TRACE) Urine Glucose (UA) Negative mg/dL (NEG) Urine Ketones (Stick) Negative mg/dL (NEG) Urine Blood Negative (NEG) Urine Nitrite Positive (NEG) Urine Bilirubin Small (NEG) Urine Urobilinogen Dipstick 1.0 mg/dL (0.2 mg/dL) Urine Leukocyte Esterase Large (NEG) Urine RBC 0 /HPF (0-2) Urine WBC Tntc /HPF (0-4) Urine Squamous Epithelial Cells Few /LPF Urine Bacteria Many /HPF (0-FEW) Laboratory Tests 01/06/18 20:20 Laboratory Tests 01/06/18 20:20 EKG EKG [] Radiology/Procedures Radiology/Procedures [] Course & Med Decision Making Course & Med Decision Making Pertinent Labs and Imaging studies reviewed. (See chart for details) This is a 87-year-old female patient presenting to the ED today to be evaluated for fever that began today. On arrival to the ED patient had a temperature 102.7 heart rate 93 O2 sats 85% on room air blood pressure 156/64. Patient has cellulitis to bilateral lower extremities tetanus up-to-date. CBC with a WBC of 12.4, CMP with creatinine of 1.6, patient has history of renal insufficiency, lactic 2.5. Patient was already on sepsis protocol on arrival to the ED. Was also started on Zosyn and Vancomycin. Urine also noted for UTI. Consulted with Dr. Chamberlain who accepted patient for admission Blank Disclaimer Dragon Disclaimer This electronic medical record was generated, in whole or in part, using a voice recognition dictation system. Departure Departure Impression: Primary Impression: Bilateral lower leg cellulitis Additional Impressions: Urinary tract infection Fever Sepsis Disposition: 09 ADMITTED INPATIENT Condition: STABLE Referrals: ADRIANA ROSARIO MD (PCP) Problem Qualifiers Additional Impressions: Urinary tract infection Urinary tract infection type: site unspecified Hematuria presence: without hematuria Qualified Codes: N39.0 - Urinary tract infection, site not specified Fever Fever type: unspecified Qualified Codes: R50.9 - Fever, unspecified Sepsis Sepsis type: sepsis due to unspecified organism Qualified Codes: A41.9 - Sepsis, unspecified organism NASRIN P[employer] Jan 06, 2018 20:31
[2018-01-06 20:39] LABS: BASO % 0 % (0-3); EOS # 0.1 x10^3/uL (0.0-0.7); EOS % 1 % (0-3); HEMATOCRIT 39.3 % (36.0-47.0); HEMOGLOBIN 13.2 g/dL (12.0-15.5); LYMPH % 8 % (24-48); MEAN CORPUSCULAR HEMOGLOBIN 31 pg (25-35); MEAN CORPUSCULAR HGB CONC 34 g/dL (31-37); MEAN CORPUSCULAR VOLUME 92 fL (79-100); MONO # 0.6 x10^3/uL (0.0-1.1); MONO % 5 % (0-9); NEUT # 10.7 x10^3uL (1.8-7.7); NEUT % 86 % (31-73); PLATELET COUNT 242 x10^3/uL (140-400); RED BLOOD COUNT 4.29 x10^6/uL (3.50-5.40); RED CELL DISTRIBUTION WIDTH 15.5 % (11.5-14.5); WHITE BLOOD COUNT 12.4 x10^3/uL (4.0-11.0)
[2018-01-06 20:47] LABS: CALCIUM 9.2 mg/dL (8.5-10.1); CREATININE 1.6 mg/dL (0.6-1.0); GFR 30.6; POTASSIUM 4.1 mmol/L (3.5-5.1)
[2018-01-06 20:53] LABS: ALBUMIN 3.7 g/dL (3.4-5.0); ALBUMIN/GLOBULIN RATIO 0.8 (1.0-1.7); TOTAL BILIRUBIN 0.4 mg/dL (0.2-1.0); TOTAL PROTEIN 8.1 g/dL (6.4-8.2)
[2018-01-06 21:42] LABS: % BANDS 5 % (0-9); % EOS 1 % (0-5); % LYMPHS 9 % (24-48); % MONOS 4 % (0-10); % SEGS 81 % (35-66)
[2018-01-06 21:43] LABS: PLT ESTIMATE ADEQUATE (ADEQUATE)
--- NOTE | 2018-01-06 21:56 | RAD ---
Indication:FEVER, BODY ACHES, WEAKNESS TECHNIQUE:Portable AP chest X-ray COMPARISON:08/10/2017 FINDINGS: Stable mild cardiomegaly. Stable ectatic ascending thoracic aorta. Lungs are clear. No pneumothorax or pleural effusion. Visualized bony thorax is within normal limits. IMPRESSION: Stable ectatic ascending aorta. No acute pulmonary process. Electronically signed by: Darron Rodriges DO (01/06/2018 9:51 PM) [facility]
[2018-01-06] MEDS ORDERED: PIP/TAZO PER PHARMACY MC PRN (22:00)
[2018-01-06 22:03] LABS: INFLUENZA A PATIENT NEGATIVE (NEGATIVE); INFLUENZA B PATIENT NEGATIVE (NEGATIVE)
[2018-01-06] MEDS ORDERED: MORPHINE SULFATE 10 MG/ML VIAL. IV ONE (22:30)
[2018-01-06 22:39] LABS: BILIRUBIN,URINE SMALL (NEG); CLARITY,URINE CLOUDY; COLOR,URINE YELLOW; NITRITE,URINE POSITIVE (NEG); PROTEIN,URINE NEGATIVE (NEG-TRACE)
[2018-01-06 22:46] LABS: BACTERIA,URINE MANY /HPF (0-FEW); RBC,URINE 0 /HPF (0-2); SQUAMOUS EPITHELIAL CELL,UR FEW /LPF; WBC,URINE TNTC /HPF (0-4)
[2018-01-07] VITALS (7 sets, daily range): BP systolic 108–133; BP diastolic 51–63
[2018-01-07] MEDS ORDERED: MORPHINE SULFATE 4 MG/ML VIAL. IV PRN
[2018-01-07] MEDS ORDERED: ONDANSETRON PF 4 MG/2 ML VIAL. IV PRN
[2018-01-07] MEDS ORDERED: ACETAMINOPHEN 325 MG TABLET. PO PRN
[2018-01-07] MEDS ORDERED: PIPERACILLIN/TAZOBACTAM 4.5 GM in IV NORMAL SALINE 100ML 100 ML IV SCH ×2
[2018-01-07] MEDS ORDERED: IV NORMAL SALINE 1000ML BAG 1,000 ML IV ONE
[2018-01-07] MEDS ORDERED: CEFP200T PO (00:58)
[2018-01-07 01:10] LABS: BASO % 0 % (0-3); EOS % 0 % (0-3); HEMATOCRIT 35.9 % (36.0-47.0); HEMOGLOBIN 12.1 g/dL (12.0-15.5); LYMPH # 0.4 x10^3/uL (1.0-4.8); LYMPH % 2 % (24-48); MEAN CORPUSCULAR HEMOGLOBIN 31 pg (25-35); MEAN CORPUSCULAR HGB CONC 34 g/dL (31-37); MEAN CORPUSCULAR VOLUME 91 fL (79-100); MONO # 0.5 x10^3/uL (0.0-1.1); MONO % 3 % (0-9); NEUT # 14.8 x10^3uL (1.8-7.7); NEUT % 94 % (31-73); PLATELET COUNT 211 x10^3/uL (140-400); RED BLOOD COUNT 3.95 x10^6/uL (3.50-5.40); RED CELL DISTRIBUTION WIDTH 15.8 % (11.5-14.5); WHITE BLOOD COUNT 15.7 x10^3/uL (4.0-11.0)
[2018-01-07] MEDS: VANCOMYCIN PER PHARMACY MC PRN ×2 (02:47→02:48)
[2018-01-07] MEDS: PIPERACILLIN/TAZOBACTAM 2.25 GM in IV NORMAL SALINE 50ML 50 ML IV SCH ×4 (05:47→23:40)
[2018-01-07] MEDS: MORPHINE SULFATE 2 MG/ML VIAL. IV PRN ×4 (06:04→20:25)
[2018-01-07 06:46] LABS: CALCIUM 8.5 mg/dL (8.5-10.1); CREATININE 1.6 mg/dL (0.6-1.0); GFR 30.6; POTASSIUM 3.8 mmol/L (3.5-5.1)
[2018-01-07] MEDS: LACTOBACILLUS RHAMNOSUS GG 1 CAPSULE. PO SCH ×2 (09:01→20:59)
--- NOTE | 2018-01-07 12:02 | PDOC1 ---
History and Physical Date of Admission Date of Admission DATE: 01/07/18 TIME: 11:55 Identification/Chief Complaint Chief Complaint fever Source Source: Chart review, Patient History of Present Illness History of Present Illness Ms. Campos is a 87 year old female with prior cellulitis, recent surg to skin lesions 1 month ago, onkeflex at home Presneted to ER last night with new fever, slight cough, body aches and chills for one day . Patient states her temperature was 103 at home. she reports feeling a little Denies any nasal congestion. S . Past Medical History Past Medical History history of renal disease, high cholesterol, hypothyroidism, Cardiovascular: HTN, Hyperlipidemia GI: GERD Rheumatologic: Gout Renal/: Chronic renal failure Endocrine: Hypothyroidism Dermatology: No pertinent hx Past Surgical History Past Surgical History: Hysterectomy Family History Family History: Hypertension Social History Smoke: No ALCOHOL: none Drugs: None Current Problem List Problem List Problems Medical Problems: (1) Bilateral lower leg cellulitis Status: Acute (2) Fever Status: Acute (3) Sepsis Status: Acute (4) Urinary tract infection Status: Acute Current Medications Current Medications Current Medications Sodium Chloride 1,380 ml @ 1,380 mls/hr Q1H IV Last administered on 01/06/18at 20:15; Start 01/06/18 at 20:15 Sodium Chloride 500 ml @ 1,000 mls/hr PRN Q30MIN PRN IV SEE COMMENTS; Start at 20:15 Vancomycin HCl (Vanco Per Pharmacy) 1 each PRN DAILY PRN MC SEE COMMENTS Last administered on 01/07/18at 02:48; Start 01/06/18 at 20:15 Piperacillin Sod/ Tazobactam Sod 4.5 gm/Sodium Chloride 100 ml @ 200 mls/hr Q6HRS IV ; Start 01/07/18 at 00:00; Status UNV Acetaminophen (Tylenol) 1,000 mg 1X ONCE PO Last administered on 01/06/18at 20: 15; Start 01/06/18 at 20:15; Stop 01/06/18 at 20:16; Status DC Vancomycin HCl 2 gm/Sodium Chloride 500 ml @ 250 mls/hr 1X ONCE IV Last administered on 01/06/18at 21:37; Start 01/06/18 at 20:15; Stop 01/06/18 at 22:14 ; Status DC Piperacillin Sod/ Tazobactam Sod 3.375 gm/Sodium Chloride 50 ml @ 100 mls/hr 1X ONCE IV Last administered on 01/06/18at 20:40; Start 01/06/18 at 20:15; Stop 01/06/18 at 20:44; Status DC Piperacillin Sod/ Tazobactam Sod (Zosyn Per Pharmacy) 1 each PRN DAILY PRN MC SEE COMMENTS; Start 01/06/18 at 22:00 Morphine Sulfate (Morphine Sulfate) 5 mg 1X ONCE IV Last administered on at 22:30; Start 01/06/18 at 22:30; Stop 01/06/18 at 22:31; Status DC Ondansetron HCl (Zofran) 4 mg PRN Q8HRS PRN IV NAUSEA/VOMITING 1ST CHOICE; Start 01/07/18 at 00:00; Stop 01/07/18 at 23:59 Morphine Sulfate (Morphine Sulfate) 4 mg PRN Q2HR PRN IV SEVERE PAIN; Start at 00:00; Stop 01/07/18 at 23:59 Acetaminophen (Tylenol) 650 mg PRN Q4HRS PRN PO FEVER Last administered on 01/07at 05:52; Start 01/07/18 at 00:00; Stop 01/07/18 at 23:59 Sodium Chloride 1,000 ml @ 125 mls/hr 1X ONCE IV Last administered on at 01:10; Start 01/07/18 at 00:00; Stop 01/07/18 at 07:59; Status DC Vancomycin HCl 1.25 gm/Sodium Chloride 250 ml @ 167 mls/hr Q24H IV ; Start at 22:00 Vancomycin HCl (Vancomycin Trough Level) 1 each 1X ONCE MC ; Start 01/08/18 at 21:30; Stop 01/08/18 at 21:31 Piperacillin Sod/ Tazobactam Sod 2.25 gm/Sodium Chloride 50 ml @ 100 mls/hr Q6HRS IV Last administered on 01/07/18at 05:47; Start 01/07/18 at 06:00 Morphine Sulfate (Morphine Sulfate) 2 mg PRN Q2HR PRN IV MODERATE PAIN Last administered on 01/07/18at 06:04; Start 01/07/18 at 06:00 Lactobacillus Rhamnosus (Culturelle) 1 cap BID PO Last administered on at 09:01; Start 01/07/18 at 09:00 Active Scripts Active Reported Cefpodoxime Proxetil 200 Mg Tablet 500 Mg PO DAILY Tova-D 24 Hour Tablet (Fexofenadine/Pseudoephedrine) 1 Each Tab.er.24h 1 Tab PO DAILY Levothyroxine Sodium 88 Mcg Tablet 88 Mcg PO DAILY Citalopram Hbr (Citalopram Hydrobromide) 40 Mg Tablet 40 Mg PO DAILY Allopurinol 100 Mg Tablet 100 Mg PO DAILY Pantoprazole Sodium 40 Mg Tablet.dr 40 Mg PO DAILY Aspir-Low (Aspirin) 81 Mg Tablet.dr 1 Tab PO DAILY Simvastatin 80 Mg Tablet 1 Tab PO QHS Furosemide 40 Mg Tablet 1 Tab PO DAILY Allergies Allergies: Coded Allergies: No Known Drug Allergies (Unverified , 03/02/14) ROS General: No: Chills, Night Sweats, Fatigue, Malaise, Appetite, Other PSYCHOLOGICAL ROS: YES: Sleep disturbances; No: Anxiety, Behavioral Disorder, Concentration difficultie, Decreased libido , Depression, Disorientation, Hallucinations, Hostility, Irritablity, Memory difficulties, Mood Swings, Obsessive thoughts, Other Eyes: No Blurry vision, No Decreased vision, No Double vision, No Dry eyes, No Excessive tearing, No Eye Pain, No Itchy Eyes, No Loss of vision, No Photophobia , No Scotomata, No Uses contacts, No Uses glasses, No Other HEENT: YES: Heacaches; No: Visual Changes, Hearing change, Nasal congestion, Nasal discharge, Oral lesions, Sinus pain, Sore Throat, Epistaxis, Sneezing, Snoring, Tinnitus, Vertigo, Vocal changes, Other Respiratory: No: Cough, Hemoptysis, Orthopnea, Pleuritic Pain, Shortness of breath, SOB with excertion, Sputum Changes, Stridor, Tachypnea, Wheezing, Other Cardiovascular: No Chest Pain, No Palpitations, No Orthopnea, No Paroxysmal Noc. Dyspnea, No Edema, No Lt Headedness, No Other Gastrointestinal: No Nausea, No Vomiting, No Abdominal Pain, No Diarrhea, No Constipation, No Melena, No Hematochezia, No Other Genitourinary: No Dysuria, No Frequency, No Incontinence, No Hematuria, No Retention, No Discharge, No Urgency, No Pain, No Flank Pain, No Other, No , No , No , No , No , No , No Musculoskeletal: Yes Pain In:; No Gait Disturbance, No Joint Pain, No Joint Stiffness, No Joint Swelling, No Muscle Pain, No Muscular Weakness, No Swelling In:, No Other Neurological: No Behavorial Changes, No Bowel/Bladder ControlChng, No Confusion , No Dizziness, No Gait Disturbance, No Headaches, No Impaired Coord/balance, No Memory Loss, No Numbness/Tingling, No Seizures, No Speech Problems, No Tremors, No Visual Changes, No Weakness, No Other Skin: Yes Dry Skin; No Eczema, No Hair Changes, No Lumps, No Mole Changes, No Mottling, No Nail Changes, No Pruritus, No Rash, No Skin Lesion Changes, No Other, No Acne Physical Exam General: Alert, Cooperative, mild distress HEENT: Atraumatic, EOMI Lungs: Normal air movement Heart: no gallops, no murmurs Abdomen: Soft Rectal Exam: not examined Extremities: No cyanosis, No edema, Normal pulses Skin: No rashes Neuro: Normal speech, Normal tone, Sensation intact Psych/Mental Status: Mood NL Vitals Vitals Vital Signs Date Time Temp Pulse Resp B/P (MAP) Pulse Ox O2 Delivery O2 Flow Rate FiO2 01/07/18 07:00 97.7 89 16 110/54 (72) 92 Room Air 97.7 Labs Labs Laboratory Tests Test 01/06/18 20:20 01/06/18 21:39 01/06/18 22:20 01/07/18 00:55 White Blood Count 12.4 x10^3/uL (4.0-11.0) 15.7 x10^3/uL (4.0-11.0) Red Blood Count 4.29 x10^6/uL (3.50-5.40) 3.95 x10^6/uL (3.50-5.40) Hemoglobin 13.2 g/dL (12.0-15.5) 12.1 g/dL (12.0-15.5) Hematocrit 39.3 % (36.0-47.0) 35.9 % (36.0-47.0) Mean Corpuscular Volume 92 fL (79-100) 91 fL (79-100) Mean Corpuscular Hemoglobin 31 pg (25-35) 31 pg (25-35) Mean Corpuscular Hemoglobin Concent 34 g/dL (31-37) 34 g/dL (31-37) Red Cell Distribution Width 15.5 % (11.5-14.5) 15.8 % (11.5-14.5) Platelet Count 242 x10^3/uL (140-400) 211 x10^3/uL (140-400) Neutrophils (%) (Auto) 86 % (31-73) 94 % (31-73) Lymphocytes (%) (Auto) 8 % (24-48) 2 % (24-48) Monocytes (%) (Auto) 5 % (0-9) 3 % (0-9) Eosinophils (%) (Auto) 1 % (0-3) 0 % (0-3) Basophils (%) (Auto) 0 % (0-3) 0 % (0-3) Neutrophils # (Auto) 10.7 x10^3uL (1.8-7.7) 14.8 x10^3uL (1.8-7.7) Lymphocytes # (Auto) 1.0 x10^3/uL (1.0-4.8) 0.4 x10^3/uL (1.0-4.8) Monocytes # (Auto) 0.6 x10^3/uL (0.0-1.1) 0.5 x10^3/uL (0.0-1.1) Eosinophils # (Auto) 0.1 x10^3/uL (0.0-0.7) 0.0 x10^3/uL (0.0-0.7) Basophils # (Auto) 0.0 x10^3/uL (0.0-0.2) 0.0 x10^3/uL (0.0-0.2) Segmented Neutrophils % 81 % (35-66) Band Neutrophils % 5 % (0-9) Lymphocytes % 9 % (24-48) Monocytes % 4 % (0-10) Eosinophils % 1 % (0-5) Platelet Estimate Adequate (ADEQUATE) Sodium Level 139 mmol/L (136-145) 143 mmol/L (136-145) Potassium Level 4.1 mmol/L (3.5-5.1) 3.8 mmol/L (3.5-5.1) Chloride Level 102 mmol/L (98-107) 105 mmol/L (98-107) Carbon Dioxide Level 30 mmol/L (21-32) 25 mmol/L (21-32) Anion Gap 7 (6-14) 13 (6-14) Blood Urea Nitrogen 30 mg/dL (7-20) 30 mg/dL (7-20) Creatinine 1.6 mg/dL (0.6-1.0) 1.6 mg/dL (0.6-1.0) Estimated GFR (Cockcroft-Gault) 30.6 30.6 BUN/Creatinine Ratio 19 (6-20) Glucose Level 107 mg/dL (70-99) 121 mg/dL (70-99) Lactic Acid Level 2.5 mmol/L (0.4-2.0) 2.0 mmol/L (0.4-2.0) Calcium Level 9.2 mg/dL (8.5-10.1) 8.5 mg/dL (8.5-10.1) Total Bilirubin 0.4 mg/dL (0.2-1.0) Aspartate Amino Transf (AST/SGOT) 16 U/L (15-37) Alanine Aminotransferase (ALT/SGPT) 13 U/L (14-59) Alkaline Phosphatase 88 U/L (46-116) Total Protein 8.1 g/dL (6.4-8.2) Albumin 3.7 g/dL (3.4-5.0) Albumin/Globulin Ratio 0.8 (1.0-1.7) Lipase 207 U/L (73-393) Procalcitonin < 0.10 ng/mL (0.00-0.10) Influenza Type A Antigen Negative (NEGATIVE) Influenza Type B Antigen Negative (NEGATIVE) Urine Collection Type Unknown Urine Color Yellow Urine Clarity Cloudy Urine pH 7.0 Urine Specific [place] 1.015 Urine Protein Negative mg/dL (NEG-TRACE) Urine Glucose (UA) Negative mg/dL (NEG) Urine Ketones (Stick) Negative mg/dL (NEG) Urine Blood Negative (NEG) Urine Nitrite Positive (NEG) Urine Bilirubin Small (NEG) Urine Urobilinogen Dipstick 1.0 mg/dL (0.2 mg/dL) Urine Leukocyte Esterase Large (NEG) Urine RBC 0 /HPF (0-2) Urine WBC Tntc /HPF (0-4) Urine Squamous Epithelial Cells Few /LPF Urine Bacteria Many /HPF (0-FEW) Laboratory Tests Test 01/06/18 20:20 01/06/18 21:39 01/06/18 22:20 01/07/18 00:55 White Blood Count 12.4 x10^3/uL (4.0-11.0) 15.7 x10^3/uL (4.0-11.0) Red Blood Count 4.29 x10^6/uL (3.50-5.40) 3.95 x10^6/uL (3.50-5.40) Hemoglobin 13.2 g/dL (12.0-15.5) 12.1 g/dL (12.0-15.5) Hematocrit 39.3 % (36.0-47.0) 35.9 % (36.0-47.0) Mean Corpuscular Volume 92 fL (79-100) 91 fL (79-100) Mean Corpuscular Hemoglobin 31 pg (25-35) 31 pg (25-35) Mean Corpuscular Hemoglobin Concent 34 g/dL (31-37) 34 g/dL (31-37) Red Cell Distribution Width 15.5 % (11.5-14.5) 15.8 % (11.5-14.5) Platelet Count 242 x10^3/uL (140-400) 211 x10^3/uL (140-400) Neutrophils (%) (Auto) 86 % (31-73) 94 % (31-73) Lymphocytes (%) (Auto) 8 % (24-48) 2 % (24-48) Monocytes (%) (Auto) 5 % (0-9) 3 % (0-9) Eosinophils (%) (Auto) 1 % (0-3) 0 % (0-3) Basophils (%) (Auto) 0 % (0-3) 0 % (0-3) Neutrophils # (Auto) 10.7 x10^3uL (1.8-7.7) 14.8 x10^3uL (1.8-7.7) Lymphocytes # (Auto) 1.0 x10^3/uL (1.0-4.8) 0.4 x10^3/uL (1.0-4.8) Monocytes # (Auto) 0.6 x10^3/uL (0.0-1.1) 0.5 x10^3/uL (0.0-1.1) Eosinophils # (Auto) 0.1 x10^3/uL (0.0-0.7) 0.0 x10^3/uL (0.0-0.7) Basophils # (Auto) 0.0 x10^3/uL (0.0-0.2) 0.0 x10^3/uL (0.0-0.2) Segmented Neutrophils % 81 % (35-66) Band Neutrophils % 5 % (0-9) Lymphocytes % 9 % (24-48) Monocytes % 4 % (0-10) Eosinophils % 1 % (0-5) Platelet Estimate Adequate (ADEQUATE) Sodium Level 139 mmol/L (136-145) 143 mmol/L (136-145) Potassium Level 4.1 mmol/L (3.5-5.1) 3.8 mmol/L (3.5-5.1) Chloride Level 102 mmol/L (98-107) 105 mmol/L (98-107) Carbon Dioxide Level 30 mmol/L (21-32) 25 mmol/L (21-32) Anion Gap 7 (6-14) 13 (6-14) Blood Urea Nitrogen 30 mg/dL (7-20) 30 mg/dL (7-20) Creatinine 1.6 mg/dL (0.6-1.0) 1.6 mg/dL (0.6-1.0) Estimated GFR (Cockcroft-Gault) 30.6 30.6 BUN/Creatinine Ratio 19 (6-20) Glucose Level 107 mg/dL (70-99) 121 mg/dL (70-99) Lactic Acid Level 2.5 mmol/L (0.4-2.0) 2.0 mmol/L (0.4-2.0) Calcium Level 9.2 mg/dL (8.5-10.1) 8.5 mg/dL (8.5-10.1) Total Bilirubin 0.4 mg/dL (0.2-1.0) Aspartate Amino Transf (AST/SGOT) 16 U/L (15-37) Alanine Aminotransferase (ALT/SGPT) 13 U/L (14-59) Alkaline Phosphatase 88 U/L (46-116) Total Protein 8.1 g/dL (6.4-8.2) Albumin 3.7 g/dL (3.4-5.0) Albumin/Globulin Ratio 0.8 (1.0-1.7) Lipase 207 U/L (73-393) Procalcitonin < 0.10 ng/mL (0.00-0.10) Influenza Type A Antigen Negative (NEGATIVE) Influenza Type B Antigen Negative (NEGATIVE) Urine Collection Type Unknown Urine Color Yellow Urine Clarity Cloudy Urine pH 7.0 Urine Specific [place] 1.015 Urine Protein Negative mg/dL (NEG-TRACE) Urine Glucose (UA) Negative mg/dL (NEG) Urine Ketones (Stick) Negative mg/dL (NEG) Urine Blood Negative (NEG) Urine Nitrite Positive (NEG) Urine Bilirubin Small (NEG) Urine Urobilinogen Dipstick 1.0 mg/dL (0.2 mg/dL) Urine Leukocyte Esterase Large (NEG) Urine RBC 0 /HPF (0-2) Urine WBC Tntc /HPF (0-4) Urine Squamous Epithelial Cells Few /LPF Urine Bacteria Many /HPF (0-FEW) VTE Prophylaxis Ordered VTE Prophylaxis Devices: No VTE Pharmacological Prophylaxi: Yes Assessment/Plan Assessment/Plan sepsis, consult ID UTI, very broad abx started, will continue as on keflex acute on chronic LE cellulitis, on Keflex as outpatient, recetn surg to skin lesion, 'obesity, BMI 39 CKD 3-4, hydrate, renal consult HYUN DOOLEY MD Jan 07, 2018 12:02
--- NOTE | 2018-01-07 13:26 | PDOC ---
Infectious Disease Note Vital Sign Vital Signs Vital Signs Date Time Temp Pulse Resp B/P (MAP) Pulse Ox O2 Delivery O2 Flow Rate FiO2 01/07/18 13:05 91 Room Air 01/07/18 11:00 97.7 76 18 112/54 (73) 97.7 Labs Lab Laboratory Tests Test 01/06/18 20:20 01/06/18 21:39 01/06/18 22:20 01/07/18 00:55 White Blood Count 12.4 x10^3/uL (4.0-11.0) 15.7 x10^3/uL (4.0-11.0) Red Blood Count 4.29 x10^6/uL (3.50-5.40) 3.95 x10^6/uL (3.50-5.40) Hemoglobin 13.2 g/dL (12.0-15.5) 12.1 g/dL (12.0-15.5) Hematocrit 39.3 % (36.0-47.0) 35.9 % (36.0-47.0) Mean Corpuscular Volume 92 fL (79-100) 91 fL (79-100) Mean Corpuscular Hemoglobin 31 pg (25-35) 31 pg (25-35) Mean Corpuscular Hemoglobin Concent 34 g/dL (31-37) 34 g/dL (31-37) Red Cell Distribution Width 15.5 % (11.5-14.5) 15.8 % (11.5-14.5) Platelet Count 242 x10^3/uL (140-400) 211 x10^3/uL (140-400) Neutrophils (%) (Auto) 86 % (31-73) 94 % (31-73) Lymphocytes (%) (Auto) 8 % (24-48) 2 % (24-48) Monocytes (%) (Auto) 5 % (0-9) 3 % (0-9) Eosinophils (%) (Auto) 1 % (0-3) 0 % (0-3) Basophils (%) (Auto) 0 % (0-3) 0 % (0-3) Neutrophils # (Auto) 10.7 x10^3uL (1.8-7.7) 14.8 x10^3uL (1.8-7.7) Lymphocytes # (Auto) 1.0 x10^3/uL (1.0-4.8) 0.4 x10^3/uL (1.0-4.8) Monocytes # (Auto) 0.6 x10^3/uL (0.0-1.1) 0.5 x10^3/uL (0.0-1.1) Eosinophils # (Auto) 0.1 x10^3/uL (0.0-0.7) 0.0 x10^3/uL (0.0-0.7) Basophils # (Auto) 0.0 x10^3/uL (0.0-0.2) 0.0 x10^3/uL (0.0-0.2) Segmented Neutrophils % 81 % (35-66) Band Neutrophils % 5 % (0-9) Lymphocytes % 9 % (24-48) Monocytes % 4 % (0-10) Eosinophils % 1 % (0-5) Platelet Estimate Adequate (ADEQUATE) Sodium Level 139 mmol/L (136-145) 143 mmol/L (136-145) Potassium Level 4.1 mmol/L (3.5-5.1) 3.8 mmol/L (3.5-5.1) Chloride Level 102 mmol/L (98-107) 105 mmol/L (98-107) Carbon Dioxide Level 30 mmol/L (21-32) 25 mmol/L (21-32) Anion Gap 7 (6-14) 13 (6-14) Blood Urea Nitrogen 30 mg/dL (7-20) 30 mg/dL (7-20) Creatinine 1.6 mg/dL (0.6-1.0) 1.6 mg/dL (0.6-1.0) Estimated GFR (Cockcroft-Gault) 30.6 30.6 BUN/Creatinine Ratio 19 (6-20) Glucose Level 107 mg/dL (70-99) 121 mg/dL (70-99) Lactic Acid Level 2.5 mmol/L (0.4-2.0) 2.0 mmol/L (0.4-2.0) Calcium Level 9.2 mg/dL (8.5-10.1) 8.5 mg/dL (8.5-10.1) Total Bilirubin 0.4 mg/dL (0.2-1.0) Aspartate Amino Transf (AST/SGOT) 16 U/L (15-37) Alanine Aminotransferase (ALT/SGPT) 13 U/L (14-59) Alkaline Phosphatase 88 U/L (46-116) Total Protein 8.1 g/dL (6.4-8.2) Albumin 3.7 g/dL (3.4-5.0) Albumin/Globulin Ratio 0.8 (1.0-1.7) Lipase 207 U/L (73-393) Procalcitonin < 0.10 ng/mL (0.00-0.10) Influenza Type A Antigen Negative (NEGATIVE) Influenza Type B Antigen Negative (NEGATIVE) Urine Collection Type Unknown Urine Color Yellow Urine Clarity Cloudy Urine pH 7.0 Urine Specific [place] 1.015 Urine Protein Negative mg/dL (NEG-TRACE) Urine Glucose (UA) Negative mg/dL (NEG) Urine Ketones (Stick) Negative mg/dL (NEG) Urine Blood Negative (NEG) Urine Nitrite Positive (NEG) Urine Bilirubin Small (NEG) Urine Urobilinogen Dipstick 1.0 mg/dL (0.2 mg/dL) Urine Leukocyte Esterase Large (NEG) Urine RBC 0 /HPF (0-2) Urine WBC Tntc /HPF (0-4) Urine Squamous Epithelial Cells Few /LPF Urine Bacteria Many /HPF (0-FEW) Objective Assessment Fever and chills Leukocytosis UTI with sepsis Rt leg cellulitis Chronic stasis dermatitis Renal insufficiency Plan Plan of Care d/c vanc cont zosyn add zyvox leg elevation check bc and urine culture supportive care EDUARDO RIZVI MD Jan 07, 2018 13:26
[2018-01-07] MEDS: LINEZOLID 600 MG TABLET PO SCH ×2 (14:00→20:59)
[2018-01-07] MEDS: PANTOPRAZOLE 40 MG TABLET.DR. PO SCH (14:55)
[2018-01-07] MEDS: ASPIRIN ENTERIC COATED 81 MG TABLET.DR. PO SCH (14:55)
[2018-01-07] MEDS: FUROSEMIDE 40 MG TABLET. PO SCH (14:55)
[2018-01-07] MEDS: ALLOPURINOL 100 MG TABLET. PO SCH (14:55)
[2018-01-07] MEDS: LEVOTHYROXINE 88 MCG TABLET PO SCH (14:55)
[2018-01-07] MEDS: CITALOPRAM 20 MG TABLET. PO SCH (14:56)
[2018-01-07] MEDS ORDERED: CEPH500C PO (15:37)
[2018-01-07] MEDS: SIMVASTATIN 40 MG TABLET. PO SCH (20:59)
[2018-01-07] MEDS ORDERED: VANCOMYCIN 1.25 GM in IV NORMAL SALINE 250ML 250 ML IV SCH (22:00)
--- NOTE | 2018-01-08 02:13 | CONS ---
DATE OF CONSULTATION: 01/07/2018 REQUESTING PHYSICIAN: Dr. Chamberlain. REASON FOR CONSULTATION: UTI with sepsis and cellulitis. HISTORY OF PRESENT ILLNESS: This is an 87-year-old female who presented to the ER with fever and chills, fever up to 103 at home. The patient denied any nausea, vomiting or diarrhea. Denied any urinary symptoms other than frequent small amount of urine. Denied any headache or visual symptoms. The patient has been diagnosed with UTI, had fever, leukocytosis, abnormal urinalysis and lower extremity erythema mainly more so on the right than left. PAST MEDICAL HISTORY: Positive for gastroesophageal reflux disease, hyperlipidemia, hypothyroidism, renal insufficiency and bilateral stasis dermatitis. The patient has had bilateral more so on the right polypoid lesions on the skin, surgery has been done by Dr. Dias. The patient had been on Keflex since then. The patient also has had hysterectomy, bilateral oophorectomy and right nephrectomy. SOCIAL HISTORY: Negative for smoking, alcohol or illicit drug use. ALLERGIES: No known drug allergies. CURRENT MEDICATIONS: The patient is on vancomycin and Zosyn. REVIEW OF SYSTEMS: As per HPI. All other systems reviewed are negative. PHYSICAL EXAMINATION: GENERAL: Alert and oriented female, not in distress. VITAL SIGNS: Stable, ____ with a T-max 102.7. HEENT: NAD. NECK: Supple, no JVP, no lymphadenopathy. LUNGS: Clear. HEART: S1, S2 regular. ABDOMEN: Benign. EXTREMITIES: Left lower extremity has chronic stasis dermatitis present. Right lower extremity has chronic stasis dermatitis on top of that what appears to be acute cellulitis with redness and warmth to it and much more than her usual redness. NEUROLOGIC: The patient is neurologically intact. LABORATORY DATA: White count is 15.7, hemoglobin 12.1 and platelets are normal. BUN and creatinine is 30 and 1.6. Lactic acid was 2.5. Urinalysis showed too numerous to count wbc's. Cultures are pending. Chest x-ray was unremarkable. IMPRESSION: 1. Fever with chills. 2. Leukocytosis. 3. Urinary tract infection with sepsis. 4. Right leg cellulitis. 5. Chronic stasis dermatitis. 6. Renal insufficiency. RECOMMENDATIONS: We will discontinue vancomycin, continue Zosyn and add Zyvox. Leg elevation. We will check blood culture and urine culture. Supportive care and we will continue to follow. Thank you very much, Dr. Chamberlain for giving me the opportunity to participate in this patient's care. EDUARDO RIZVI MD DR: TERRI/marybel JOB#: [id number] / [id number]
[2018-01-08 02:50] VITALS: BP 118/56
[2018-01-08] MEDS: PIPERACILLIN/TAZOBACTAM 2.25 GM in IV NORMAL SALINE 50ML 50 ML IV SCH ×3 (05:49→16:56)
[2018-01-08] MEDS: LEVOTHYROXINE 88 MCG TABLET PO SCH (05:49)
[2018-01-08 06:01] LABS: BASO % 0 % (0-3); EOS % 0 % (0-3); HEMATOCRIT 32.9 % (36.0-47.0); HEMOGLOBIN 10.8 g/dL (12.0-15.5); LYMPH # 1.1 x10^3/uL (1.0-4.8); LYMPH % 9 % (24-48); MEAN CORPUSCULAR HEMOGLOBIN 30 pg (25-35); MEAN CORPUSCULAR HGB CONC 33 g/dL (31-37); MEAN CORPUSCULAR VOLUME 92 fL (79-100); MONO # 0.9 x10^3/uL (0.0-1.1); MONO % 7 % (0-9); NEUT % 84 % (31-73); PLATELET COUNT 182 x10^3/uL (140-400); RED BLOOD COUNT 3.56 x10^6/uL (3.50-5.40); RED CELL DISTRIBUTION WIDTH 15.9 % (11.5-14.5); WHITE BLOOD COUNT 13.1 x10^3/uL (4.0-11.0)
[2018-01-08 06:10] LABS: ALBUMIN 2.7 g/dL (3.4-5.0); ALBUMIN/GLOBULIN RATIO 0.7 (1.0-1.7); CALCIUM 8.3 mg/dL (8.5-10.1); CREATININE 1.5 mg/dL (0.6-1.0); GFR 32.9; POTASSIUM 3.7 mmol/L (3.5-5.1); TOTAL BILIRUBIN 0.4 mg/dL (0.2-1.0); TOTAL PROTEIN 6.8 g/dL (6.4-8.2)
[2018-01-08] MEDS: oxyCODONE/APAP 5/325 1 TAB TABLET PO PRN ×3 (06:32→21:18)
[2018-01-08] MEDS: PANTOPRAZOLE 40 MG TABLET.DR. PO SCH (06:32)
[2018-01-08 07:15] VITALS: BP 105/53
[2018-01-08] MEDS ORDERED: CEFPODOXIME PROXETIL PO SCH (09:00)
--- NOTE | 2018-01-08 10:14 | PDOC ---
Infectious Disease Note Subjective Subjective pt is feeling better ROS ROS no n/v/d/sob/ Vital Sign Vital Signs Vital Signs Date Time Temp Pulse Resp B/P (MAP) Pulse Ox O2 Delivery O2 Flow Rate FiO2 01/08/18 07:32 94 Room Air 2.0 01/08/18 07:15 97.5 84 18 105/53 (70) 97.5 Physical Exam PHYSICAL EXAM GENERAL: Alert and oriented female, not in distress. VITAL SIGNS: Stable, HEENT: NAD. NECK: Supple, no JVP, no lymphadenopathy. LUNGS: Clear. HEART: S1, S2 regular. ABDOMEN: Benign. EXTREMITIES: Left lower extremity has chronic stasis dermatitis present. Right lower extremity has chronic stasis dermatitis on top of that what appears to be acute cellulitis with redness and warmth to it and much more than her usual redness. NEUROLOGIC: The patient is neurologically intact. Labs Lab Laboratory Tests Test 01/08/18 04:32 01/08/18 04:52 White Blood Count 13.1 x10^3/uL (4.0-11.0) Red Blood Count 3.56 x10^6/uL (3.50-5.40) Hemoglobin 10.8 g/dL (12.0-15.5) Hematocrit 32.9 % (36.0-47.0) Mean Corpuscular Volume 92 fL (79-100) Mean Corpuscular Hemoglobin 30 pg (25-35) Mean Corpuscular Hemoglobin Concent 33 g/dL (31-37) Red Cell Distribution Width 15.9 % (11.5-14.5) Platelet Count 182 x10^3/uL (140-400) Neutrophils (%) (Auto) 84 % (31-73) Lymphocytes (%) (Auto) 9 % (24-48) Monocytes (%) (Auto) 7 % (0-9) Eosinophils (%) (Auto) 0 % (0-3) Basophils (%) (Auto) 0 % (0-3) Neutrophils # (Auto) 11.0 x10^3uL (1.8-7.7) Lymphocytes # (Auto) 1.1 x10^3/uL (1.0-4.8) Monocytes # (Auto) 0.9 x10^3/uL (0.0-1.1) Eosinophils # (Auto) 0.0 x10^3/uL (0.0-0.7) Basophils # (Auto) 0.0 x10^3/uL (0.0-0.2) Sodium Level 138 mmol/L (136-145) Potassium Level 3.7 mmol/L (3.5-5.1) Chloride Level 103 mmol/L (98-107) Carbon Dioxide Level 26 mmol/L (21-32) Anion Gap 9 (6-14) Blood Urea Nitrogen 30 mg/dL (7-20) Creatinine 1.5 mg/dL (0.6-1.0) Estimated GFR (Cockcroft-Gault) 32.9 BUN/Creatinine Ratio 20 (6-20) Glucose Level 110 mg/dL (70-99) Calcium Level 8.3 mg/dL (8.5-10.1) Total Bilirubin 0.4 mg/dL (0.2-1.0) Aspartate Amino Transf (AST/SGOT) 83 U/L (15-37) Alanine Aminotransferase (ALT/SGPT) 28 U/L (14-59) Alkaline Phosphatase 76 U/L (46-116) Total Protein 6.8 g/dL (6.4-8.2) Albumin 2.7 g/dL (3.4-5.0) Albumin/Globulin Ratio 0.7 (1.0-1.7) Lactic Acid Level 1.0 mmol/L (0.4-2.0) Micro Microbiology 01/07/18 Blood Culture - Preliminary, Resulted NO GROWTH AFTER 1 DAY Objective Assessment Fever and chills Leukocytosis UTI with sepsis Rt leg cellulitis Chronic stasis dermatitis Renal insufficiency Plan Plan of Care cont zosyn and zyvox leg elevation check bc and urine culture supportive care EDUARDO RIZVI MD Jan 08, 2018 10:14
[2018-01-08] MEDS: PSEUDOEPHEDRINE ER 120 MG TABLET.ER. PO SCH ×2 (10:46→21:17)
[2018-01-08] MEDS: ALLOPURINOL 100 MG TABLET. PO SCH (10:47)
[2018-01-08] MEDS: LACTOBACILLUS RHAMNOSUS GG 1 CAPSULE. PO SCH ×2 (10:47→21:18)
[2018-01-08] MEDS: CETIRIZINE HCL 10 MG TABLET. PO SCH (10:47)
[2018-01-08] MEDS: LINEZOLID 600 MG TABLET PO SCH ×2 (10:47→21:17)
[2018-01-08] MEDS: ASPIRIN ENTERIC COATED 81 MG TABLET.DR. PO SCH (10:47)
[2018-01-08] MEDS: FUROSEMIDE 40 MG TABLET. PO SCH (10:48)
[2018-01-08] MEDS: CITALOPRAM 20 MG TABLET. PO SCH (10:48)
--- NOTE | 2018-01-08 10:56 | PDOC ---
PROGRESS NOTES History of Present Illness History of Present Illness Assessment/Plan Assessment/Plan sepsis, consult ID UTI, very broad abx started, will continue acute on chronic LE cellulitis, , recent surg to skin lesion, Fever and chills Leukocytosis UTI with sepsis Rt leg cellulitis Chronic stasis dermatitis Renal insufficiency Plan zosyn and zyvox leg elevation check bc and urine culture 'obesity, BMI 39 CKD 3-4, hydrate, renal consult Vitals Vitals Vital Signs Date Time Temp Pulse Resp B/P (MAP) Pulse Ox O2 Delivery O2 Flow Rate FiO2 01/08/18 07:32 94 Room Air 2.0 01/08/18 07:15 97.5 84 18 105/53 (70) 97.5 Physical Exam Physical Exam GENERAL: Alert and oriented female, not in distress. VITAL SIGNS: Stable, HEENT: NAD. NECK: Supple, no JVP, no lymphadenopathy. LUNGS: Clear. HEART: S1, S2 regular. ABDOMEN: Benign. EXTREMITIES: Left lower extremity has chronic stasis dermatitis present. Right lower extremity has chronic stasis dermatitis on top of that what appears to be acute cellulitis with redness and warmth to it and much more than her usual redness. NEUROLOGIC: The patient is neurologically intact. General: Alert, Cooperative, mild distress Lungs: Clear Abdomen: Soft Extremities: No cyanosis, No edema, Normal pulses Skin: No rashes Labs LABS Laboratory Tests Test 01/08/18 04:32 01/08/18 04:52 White Blood Count 13.1 x10^3/uL (4.0-11.0) Red Blood Count 3.56 x10^6/uL (3.50-5.40) Hemoglobin 10.8 g/dL (12.0-15.5) Hematocrit 32.9 % (36.0-47.0) Mean Corpuscular Volume 92 fL (79-100) Mean Corpuscular Hemoglobin 30 pg (25-35) Mean Corpuscular Hemoglobin Concent 33 g/dL (31-37) Red Cell Distribution Width 15.9 % (11.5-14.5) Platelet Count 182 x10^3/uL (140-400) Neutrophils (%) (Auto) 84 % (31-73) Lymphocytes (%) (Auto) 9 % (24-48) Monocytes (%) (Auto) 7 % (0-9) Eosinophils (%) (Auto) 0 % (0-3) Basophils (%) (Auto) 0 % (0-3) Neutrophils # (Auto) 11.0 x10^3uL (1.8-7.7) Lymphocytes # (Auto) 1.1 x10^3/uL (1.0-4.8) Monocytes # (Auto) 0.9 x10^3/uL (0.0-1.1) Eosinophils # (Auto) 0.0 x10^3/uL (0.0-0.7) Basophils # (Auto) 0.0 x10^3/uL (0.0-0.2) Sodium Level 138 mmol/L (136-145) Potassium Level 3.7 mmol/L (3.5-5.1) Chloride Level 103 mmol/L (98-107) Carbon Dioxide Level 26 mmol/L (21-32) Anion Gap 9 (6-14) Blood Urea Nitrogen 30 mg/dL (7-20) Creatinine 1.5 mg/dL (0.6-1.0) Estimated GFR (Cockcroft-Gault) 32.9 BUN/Creatinine Ratio 20 (6-20) Glucose Level 110 mg/dL (70-99) Calcium Level 8.3 mg/dL (8.5-10.1) Total Bilirubin 0.4 mg/dL (0.2-1.0) Aspartate Amino Transf (AST/SGOT) 83 U/L (15-37) Alanine Aminotransferase (ALT/SGPT) 28 U/L (14-59) Alkaline Phosphatase 76 U/L (46-116) Total Protein 6.8 g/dL (6.4-8.2) Albumin 2.7 g/dL (3.4-5.0) Albumin/Globulin Ratio 0.7 (1.0-1.7) Lactic Acid Level 1.0 mmol/L (0.4-2.0) Assessment and Plan Assessmemt and Plan Problems Medical Problems: (1) Bilateral lower leg cellulitis Status: Acute (2) Fever Status: Acute (3) Sepsis Status: Acute (4) Urinary tract infection Status: Acute Comment Review of Relevant I have reviewed the following items javan (where applicable) has been applied. Labs Laboratory Tests Test 01/06/18 20:20 01/06/18 21:39 01/06/18 22:20 01/07/18 00:55 White Blood Count 12.4 x10^3/uL (4.0-11.0) 15.7 x10^3/uL (4.0-11.0) Red Blood Count 4.29 x10^6/uL (3.50-5.40) 3.95 x10^6/uL (3.50-5.40) Hemoglobin 13.2 g/dL (12.0-15.5) 12.1 g/dL (12.0-15.5) Hematocrit 39.3 % (36.0-47.0) 35.9 % (36.0-47.0) Mean Corpuscular Volume 92 fL (79-100) 91 fL (79-100) Mean Corpuscular Hemoglobin 31 pg (25-35) 31 pg (25-35) Mean Corpuscular Hemoglobin Concent 34 g/dL (31-37) 34 g/dL (31-37) Red Cell Distribution Width 15.5 % (11.5-14.5) 15.8 % (11.5-14.5) Platelet Count 242 x10^3/uL (140-400) 211 x10^3/uL (140-400) Neutrophils (%) (Auto) 86 % (31-73) 94 % (31-73) Lymphocytes (%) (Auto) 8 % (24-48) 2 % (24-48) Monocytes (%) (Auto) 5 % (0-9) 3 % (0-9) Eosinophils (%) (Auto) 1 % (0-3) 0 % (0-3) Basophils (%) (Auto) 0 % (0-3) 0 % (0-3) Neutrophils # (Auto) 10.7 x10^3uL (1.8-7.7) 14.8 x10^3uL (1.8-7.7) Lymphocytes # (Auto) 1.0 x10^3/uL (1.0-4.8) 0.4 x10^3/uL (1.0-4.8) Monocytes # (Auto) 0.6 x10^3/uL (0.0-1.1) 0.5 x10^3/uL (0.0-1.1) Eosinophils # (Auto) 0.1 x10^3/uL (0.0-0.7) 0.0 x10^3/uL (0.0-0.7) Basophils # (Auto) 0.0 x10^3/uL (0.0-0.2) 0.0 x10^3/uL (0.0-0.2) Segmented Neutrophils % 81 % (35-66) Band Neutrophils % 5 % (0-9) Lymphocytes % 9 % (24-48) Monocytes % 4 % (0-10) Eosinophils % 1 % (0-5) Platelet Estimate Adequate (ADEQUATE) Sodium Level 139 mmol/L (136-145) 143 mmol/L (136-145) Potassium Level 4.1 mmol/L (3.5-5.1) 3.8 mmol/L (3.5-5.1) Chloride Level 102 mmol/L (98-107) 105 mmol/L (98-107) Carbon Dioxide Level 30 mmol/L (21-32) 25 mmol/L (21-32) Anion Gap 7 (6-14) 13 (6-14) Blood Urea Nitrogen 30 mg/dL (7-20) 30 mg/dL (7-20) Creatinine 1.6 mg/dL (0.6-1.0) 1.6 mg/dL (0.6-1.0) Estimated GFR (Cockcroft-Gault) 30.6 30.6 BUN/Creatinine Ratio 19 (6-20) Glucose Level 107 mg/dL (70-99) 121 mg/dL (70-99) Lactic Acid Level 2.5 mmol/L (0.4-2.0) 2.0 mmol/L (0.4-2.0) Calcium Level 9.2 mg/dL (8.5-10.1) 8.5 mg/dL (8.5-10.1) Total Bilirubin 0.4 mg/dL (0.2-1.0) Aspartate Amino Transf (AST/SGOT) 16 U/L (15-37) Alanine Aminotransferase (ALT/SGPT) 13 U/L (14-59) Alkaline Phosphatase 88 U/L (46-116) Total Protein 8.1 g/dL (6.4-8.2) Albumin 3.7 g/dL (3.4-5.0) Albumin/Globulin Ratio 0.8 (1.0-1.7) Lipase 207 U/L (73-393) Procalcitonin < 0.10 ng/mL (0.00-0.10) Influenza Type A Antigen Negative (NEGATIVE) Influenza Type B Antigen Negative (NEGATIVE) Urine Collection Type Unknown Urine Color Yellow Urine Clarity Cloudy Urine pH 7.0 Urine Specific [place] 1.015 Urine Protein Negative mg/dL (NEG-TRACE) Urine Glucose (UA) Negative mg/dL (NEG) Urine Ketones (Stick) Negative mg/dL (NEG) Urine Blood Negative (NEG) Urine Nitrite Positive (NEG) Urine Bilirubin Small (NEG) Urine Urobilinogen Dipstick 1.0 mg/dL (0.2 mg/dL) Urine Leukocyte Esterase Large (NEG) Urine RBC 0 /HPF (0-2) Urine WBC Tntc /HPF (0-4) Urine Squamous Epithelial Cells Few /LPF Urine Bacteria Many /HPF (0-FEW) Test 01/08/18 04:32 01/08/18 04:52 White Blood Count 13.1 x10^3/uL (4.0-11.0) Red Blood Count 3.56 x10^6/uL (3.50-5.40) Hemoglobin 10.8 g/dL (12.0-15.5) Hematocrit 32.9 % (36.0-47.0) Mean Corpuscular Volume 92 fL (79-100) Mean Corpuscular Hemoglobin 30 pg (25-35) Mean Corpuscular Hemoglobin Concent 33 g/dL (31-37) Red Cell Distribution Width 15.9 % (11.5-14.5) Platelet Count 182 x10^3/uL (140-400) Neutrophils (%) (Auto) 84 % (31-73) Lymphocytes (%) (Auto) 9 % (24-48) Monocytes (%) (Auto) 7 % (0-9) Eosinophils (%) (Auto) 0 % (0-3) Basophils (%) (Auto) 0 % (0-3) Neutrophils # (Auto) 11.0 x10^3uL (1.8-7.7) Lymphocytes # (Auto) 1.1 x10^3/uL (1.0-4.8) Monocytes # (Auto) 0.9 x10^3/uL (0.0-1.1) Eosinophils # (Auto) 0.0 x10^3/uL (0.0-0.7) Basophils # (Auto) 0.0 x10^3/uL (0.0-0.2) Sodium Level 138 mmol/L (136-145) Potassium Level 3.7 mmol/L (3.5-5.1) Chloride Level 103 mmol/L (98-107) Carbon Dioxide Level 26 mmol/L (21-32) Anion Gap 9 (6-14) Blood Urea Nitrogen 30 mg/dL (7-20) Creatinine 1.5 mg/dL (0.6-1.0) Estimated GFR (Cockcroft-Gault) 32.9 BUN/Creatinine Ratio 20 (6-20) Glucose Level 110 mg/dL (70-99) Calcium Level 8.3 mg/dL (8.5-10.1) Total Bilirubin 0.4 mg/dL (0.2-1.0) Aspartate Amino Transf (AST/SGOT) 83 U/L (15-37) Alanine Aminotransferase (ALT/SGPT) 28 U/L (14-59) Alkaline Phosphatase 76 U/L (46-116) Total Protein 6.8 g/dL (6.4-8.2) Albumin 2.7 g/dL (3.4-5.0) Albumin/Globulin Ratio 0.7 (1.0-1.7) Lactic Acid Level 1.0 mmol/L (0.4-2.0) Laboratory Tests Test 01/08/18 04:32 01/08/18 04:52 White Blood Count 13.1 x10^3/uL (4.0-11.0) Red Blood Count 3.56 x10^6/uL (3.50-5.40) Hemoglobin 10.8 g/dL (12.0-15.5) Hematocrit 32.9 % (36.0-47.0) Mean Corpuscular Volume 92 fL (79-100) Mean Corpuscular Hemoglobin 30 pg (25-35) Mean Corpuscular Hemoglobin Concent 33 g/dL (31-37) Red Cell Distribution Width 15.9 % (11.5-14.5) Platelet Count 182 x10^3/uL (140-400) Neutrophils (%) (Auto) 84 % (31-73) Lymphocytes (%) (Auto) 9 % (24-48) Monocytes (%) (Auto) 7 % (0-9) Eosinophils (%) (Auto) 0 % (0-3) Basophils (%) (Auto) 0 % (0-3) Neutrophils # (Auto) 11.0 x10^3uL (1.8-7.7) Lymphocytes # (Auto) 1.1 x10^3/uL (1.0-4.8) Monocytes # (Auto) 0.9 x10^3/uL (0.0-1.1) Eosinophils # (Auto) 0.0 x10^3/uL (0.0-0.7) Basophils # (Auto) 0.0 x10^3/uL (0.0-0.2) Sodium Level 138 mmol/L (136-145) Potassium Level 3.7 mmol/L (3.5-5.1) Chloride Level 103 mmol/L (98-107) Carbon Dioxide Level 26 mmol/L (21-32) Anion Gap 9 (6-14) Blood Urea Nitrogen 30 mg/dL (7-20) Creatinine 1.5 mg/dL (0.6-1.0) Estimated GFR (Cockcroft-Gault) 32.9 BUN/Creatinine Ratio 20 (6-20) Glucose Level 110 mg/dL (70-99) Calcium Level 8.3 mg/dL (8.5-10.1) Total Bilirubin 0.4 mg/dL (0.2-1.0) Aspartate Amino Transf (AST/SGOT) 83 U/L (15-37) Alanine Aminotransferase (ALT/SGPT) 28 U/L (14-59) Alkaline Phosphatase 76 U/L (46-116) Total Protein 6.8 g/dL (6.4-8.2) Albumin 2.7 g/dL (3.4-5.0) Albumin/Globulin Ratio 0.7 (1.0-1.7) Lactic Acid Level 1.0 mmol/L (0.4-2.0) Microbiology 01/07/18 Blood Culture - Preliminary, Resulted NO GROWTH AFTER 1 DAY Medications Current Medications Sodium Chloride 1,380 ml @ 1,380 mls/hr Q1H IV Last administered on 01/06/18at 20:15; Start 01/06/18 at 20:15; Stop 01/07/18 at 13:24; Status DC Sodium Chloride 500 ml @ 1,000 mls/hr PRN Q30MIN PRN IV SEE COMMENTS; Start at 20:15 Vancomycin HCl (Vanco Per Pharmacy) 1 each PRN DAILY PRN MC SEE COMMENTS Last administered on 01/07/18at 02:48; Start 01/06/18 at 20:15; Stop 01/07/18 at 13:25 ; Status DC Piperacillin Sod/ Tazobactam Sod 4.5 gm/Sodium Chloride 100 ml @ 200 mls/hr Q6HRS IV ; Start 01/07/18 at 00:00; Status UNV Acetaminophen (Tylenol) 1,000 mg 1X ONCE PO Last administered on 01/06/18at 20: 15; Start 01/06/18 at 20:15; Stop 01/06/18 at 20:16; Status DC Vancomycin HCl 2 gm/Sodium Chloride 500 ml @ 250 mls/hr 1X ONCE IV Last administered on 01/06/18at 21:37; Start 01/06/18 at 20:15; Stop 01/06/18 at 22:14 ; Status DC Piperacillin Sod/ Tazobactam Sod 3.375 gm/Sodium Chloride 50 ml @ 100 mls/hr 1X ONCE IV Last administered on 01/06/18at 20:40; Start 01/06/18 at 20:15; Stop 01/06/18 at 20:44; Status DC Piperacillin Sod/ Tazobactam Sod (Zosyn Per Pharmacy) 1 each PRN DAILY PRN MC SEE COMMENTS; Start 01/06/18 at 22:00 Morphine Sulfate (Morphine Sulfate) 5 mg 1X ONCE IV Last administered on at 22:30; Start 01/06/18 at 22:30; Stop 01/06/18 at 22:31; Status DC Ondansetron HCl (Zofran) 4 mg PRN Q8HRS PRN IV NAUSEA/VOMITING 1ST CHOICE; Start 01/07/18 at 00:00; Stop 01/07/18 at 23:59; Status DC Morphine Sulfate (Morphine Sulfate) 4 mg PRN Q2HR PRN IV SEVERE PAIN; Start at 00:00; Stop 01/07/18 at 23:59; Status DC Acetaminophen (Tylenol) 650 mg PRN Q4HRS PRN PO FEVER Last administered on 01/07at 05:52; Start 01/07/18 at 00:00; Stop 01/07/18 at 23:59; Status DC Sodium Chloride 1,000 ml @ 125 mls/hr 1X ONCE IV Last administered on at 01:10; Start 01/07/18 at 00:00; Stop 01/07/18 at 07:59; Status DC Vancomycin HCl 1.25 gm/Sodium Chloride 250 ml @ 167 mls/hr Q24H IV ; Start at 22:00; Stop 01/07/18 at 22:00; Status DC Vancomycin HCl (Vancomycin Trough Level) 1 each 1X ONCE MC ; Start 01/08/18 at 21:30; Stop 01/08/18 at 21:30; Status DC Piperacillin Sod/ Tazobactam Sod 2.25 gm/Sodium Chloride 50 ml @ 100 mls/hr Q6HRS IV Last administered on 01/08/18at 05:49; Start 01/07/18 at 06:00 Morphine Sulfate (Morphine Sulfate) 2 mg PRN Q2HR PRN IV PAIN Last administered on 01/07/18at 20:25; Start 01/07/18 at 06:00; Stop 01/08/18 at 06:26 ; Status DC Lactobacillus Rhamnosus (Culturelle) 1 cap BID PO Last administered on at 10:47; Start 01/07/18 at 09:00 Allopurinol (Zyloprim) 100 mg DAILY PO Last administered on 01/08/18at 10:47; Start 01/07/18 at 15:00 Aspirin (Ecotrin) 81 mg DAILY PO Last administered on 01/08/18at 10:47; Start at 15:00 Furosemide (Lasix) 40 mg DAILY PO Last administered on 01/08/18at 10:48; Start 01/07/18 at 15:00 Levothyroxine Sodium (Synthroid) 88 mcg DAILY07 PO Last administered on at 05:49; Start 01/07/18 at 15:00 Pantoprazole Sodium (Protonix) 40 mg DAILYAC PO Last administered on 01/08/18at 06:32; Start 01/07/18 at 15:00 Non-Formulary Medication (Cefpodoxime Proxetil ) 500 mg DAILY PO ; Start at 09:00; Status UNV Citalopram Hydrobromide (CeleXA) 40 mg DAILY PO Last administered on 01/08/18at 10:48; Start 01/07/18 at 15:00 Cetirizine HCl (ZyrTEC) 10 mg DAILY PO Last administered on 01/08/18at 10:47; Start 01/08/18 at 09:00 Simvastatin (Zocor) 80 mg QHS PO Last administered on 01/07/18at 20:59; Start at 21:00 Pseudoephedrine HCl (Sudafed 12-Hour) 120 mg BID PO Last administered on at 10:46; Start 01/08/18 at 09:00 Linezolid (Zyvox) 600 mg BID PO Last administered on 01/08/18at 10:47; Start at 14:00 Oxycodone/ Acetaminophen (Percocet 5/325) 1 tab PRN Q4HRS PRN PO MODERATE PAIN Last administered on 01/08/18at 06:32; Start 01/08/18 at 06:30 Active Scripts Active Reported Cephalexin 500 Mg Capsule 1 Cap PO DAILY Tova-D 24 Hour Tablet (Fexofenadine/Pseudoephedrine) 1 Each Tab.er.24h 1 Tab PO DAILY Levothyroxine Sodium 88 Mcg Tablet 88 Mcg PO DAILY Citalopram Hbr (Citalopram Hydrobromide) 40 Mg Tablet 40 Mg PO DAILY Allopurinol 100 Mg Tablet 100 Mg PO DAILY Pantoprazole Sodium 40 Mg Tablet.dr 40 Mg PO DAILY Aspir-Low (Aspirin) 81 Mg Tablet.dr 1 Tab PO DAILY Simvastatin 80 Mg Tablet 1 Tab PO QHS Furosemide 40 Mg Tablet 1 Tab PO DAILY Vitals/I & O Vital Sign - Last 24 Hours 01/07/18 01/07/18 01/07/18 01/07/18 11:00 13:05 14:11 15:00 Temp 97.7 98.1 97.7 98.1 Pulse 76 89 Resp 18 20 B/P (MAP) 112/54 (73) 119/51 (73) Pulse Ox 91 91 91 90 O2 Delivery Room Air Room Air Room Air 01/07/18 01/07/18 01/07/1821/18 19:00 20:00 20:25 21:00 Temp 97.9 97.9 Pulse 88 Resp 18 B/P (MAP) 119/63 (81) Pulse Ox 93 96 O2 Delivery Nasal Cannula Room Air Room Air Room Air O2 Flow Rate 2.0 2.0 01/07/18 01/08/18 01/08/18 01/08/18 22:56 02:50 07:15 07:32 Temp 98.8 97.7 97.5 98.8 97.7 97.5 Pulse 90 88 84 Resp 18 18 18 B/P (MAP) 120/62 (81) 118/56 (76) 105/53 (70) Pulse Ox 96 90 90 94 O2 Delivery Nasal Cannula Room Air Nasal Cannula Room Air O2 Flow Rate 2.0 2.0 2.0 Intake and Output 01/07/18 01/07/18 01/08/18 15:00 23:00 07:00 Intake Total 380 ml 240 ml Balance 380 ml 240 ml KACIE ECHEVERRIA MD Jan 08, 2018 10:56
[2018-01-08 11:06] VITALS: BP 113/52
[2018-01-08 15:02] VITALS: BP 134/65
--- NOTE | 2018-01-08 15:02 | PDOC2 ---
CONSULT Date of Consult Date of Consult DATE: 01/08/18 TIME: 14:47 Reason for Consult Reason for Consult: Renal failure Source Source: Chart review, Patient History of Present Illness Reason for Visit: Pt is 87-year-old female who presented to the ER with fever and chills, fever up to 103 at home. She denied any nausea, vomiting or diarrhea. No urinary symptoms other than frequent small amount of urine. Denied any headache or visual symptoms. The patient has been diagnosed with UTI PMHx significant for GERD, renal insufficiency ,bilateral more so on the right polypoid lesions on the skin, surgery has been done by Dr. Dias. The patient had been on Keflex since then. right nephrectomy. Past Medical History Cardiovascular: HTN, Hyperlipidemia GI: GERD Rheumatologic: Gout Renal/: Chronic renal failure Endocrine: Hypothyroidism Dermatology: No pertinent hx Past Surgical History Past Surgical History: Hysterectomy Family History Family History: Hypertension Social History No ALCOHOL: none Drugs: None Lives: with Family Current Problem List Problem List Problems Medical Problems: (1) Bilateral lower leg cellulitis Status: Acute (2) Fever Status: Acute (3) Sepsis Status: Acute (4) Urinary tract infection Status: Acute Current Medications Current Medications Current Medications Sodium Chloride 1,380 ml @ 1,380 mls/hr Q1H IV Last administered on 01/06/18at 20:15; Start 01/06/18 at 20:15; Stop 01/07/18 at 13:24; Status DC Sodium Chloride 500 ml @ 1,000 mls/hr PRN Q30MIN PRN IV SEE COMMENTS; Start at 20:15 Vancomycin HCl (Vanco Per Pharmacy) 1 each PRN DAILY PRN MC SEE COMMENTS Last administered on 01/07/18at 02:48; Start 01/06/18 at 20:15; Stop 01/07/18 at 13:25 ; Status DC Piperacillin Sod/ Tazobactam Sod 4.5 gm/Sodium Chloride 100 ml @ 200 mls/hr Q6HRS IV ; Start 01/07/18 at 00:00; Status UNV Acetaminophen (Tylenol) 1,000 mg 1X ONCE PO Last administered on 01/06/18at 20: 15; Start 01/06/18 at 20:15; Stop 01/06/18 at 20:16; Status DC Vancomycin HCl 2 gm/Sodium Chloride 500 ml @ 250 mls/hr 1X ONCE IV Last administered on 01/06/18at 21:37; Start 01/06/18 at 20:15; Stop 01/06/18 at 22:14 ; Status DC Piperacillin Sod/ Tazobactam Sod 3.375 gm/Sodium Chloride 50 ml @ 100 mls/hr 1X ONCE IV Last administered on 01/06/18at 20:40; Start 01/06/18 at 20:15; Stop 01/06/18 at 20:44; Status DC Piperacillin Sod/ Tazobactam Sod (Zosyn Per Pharmacy) 1 each PRN DAILY PRN MC SEE COMMENTS; Start 01/06/18 at 22:00 Morphine Sulfate (Morphine Sulfate) 5 mg 1X ONCE IV Last administered on at 22:30; Start 01/06/18 at 22:30; Stop 01/06/18 at 22:31; Status DC Ondansetron HCl (Zofran) 4 mg PRN Q8HRS PRN IV NAUSEA/VOMITING 1ST CHOICE; Start 01/07/18 at 00:00; Stop 01/07/18 at 23:59; Status DC Morphine Sulfate (Morphine Sulfate) 4 mg PRN Q2HR PRN IV SEVERE PAIN; Start at 00:00; Stop 01/07/18 at 23:59; Status DC Acetaminophen (Tylenol) 650 mg PRN Q4HRS PRN PO FEVER Last administered on 01/07at 05:52; Start 01/07/18 at 00:00; Stop 01/07/18 at 23:59; Status DC Sodium Chloride 1,000 ml @ 125 mls/hr 1X ONCE IV Last administered on at 01:10; Start 01/07/18 at 00:00; Stop 01/07/18 at 07:59; Status DC Vancomycin HCl 1.25 gm/Sodium Chloride 250 ml @ 167 mls/hr Q24H IV ; Start at 22:00; Stop 01/07/18 at 22:00; Status DC Vancomycin HCl (Vancomycin Trough Level) 1 each 1X ONCE MC ; Start 01/08/18 at 21:30; Stop 01/08/18 at 21:30; Status DC Piperacillin Sod/ Tazobactam Sod 2.25 gm/Sodium Chloride 50 ml @ 100 mls/hr Q6HRS IV Last administered on 01/08/18 05:49; Start 01/07/18 at 06:00 Morphine Sulfate (Morphine Sulfate) 2 mg PRN Q2HR PRN IV PAIN Last administered on 01/07/18 20:25; Start 01/07/18 at 06:00; Stop 01/08/18 at 06:26 ; Status DC Lactobacillus Rhamnosus (Culturelle) 1 cap BID PO Last administered on 10:47; Start 01/07/18 at 09:00 Allopurinol (Zyloprim) 100 mg DAILY PO Last administered on 01/08/18 10:47; Start 01/07/18 at 15:00 Aspirin (Ecotrin) 81 mg DAILY PO Last administered on 01/08/18 10:47; Start at 15:00 Furosemide (Lasix) 40 mg DAILY PO Last administered on 01/08/18 10:48; Start 01/07/18 at 15:00 Levothyroxine Sodium (Synthroid) 88 mcg DAILY07 PO Last administered on 05:49; Start 01/07/18 at 15:00 Pantoprazole Sodium (Protonix) 40 mg DAILYAC PO Last administered on 01/08/18 06:32; Start 01/07/18 at 15:00 Non-Formulary Medication (Cefpodoxime Proxetil ) 500 mg DAILY PO ; Start at 09:00; Status UNV Citalopram Hydrobromide (CeleXA) 40 mg DAILY PO Last administered on 01/08/18 10:48; Start 01/07/18 at 15:00 Cetirizine HCl (ZyrTEC) 10 mg DAILY PO Last administered on 01/08/18 10:47; Start 01/08/18 at 09:00 Simvastatin (Zocor) 80 mg QHS PO Last administered on 01/07/18 20:59; Start at 21:00 Pseudoephedrine HCl (Sudafed 12-Hour) 120 mg BID PO Last administered on 10:46; Start 01/08/18 at 09:00 Linezolid (Zyvox) 600 mg BID PO Last administered on 01/08/18at 10:47; Start at 14:00 Oxycodone/ Acetaminophen (Percocet 5/325) 1 tab PRN Q4HRS PRN PO MODERATE PAIN Last administered on 01/08/18at 06:32; Start 01/08/18 at 06:30 Active Scripts Active Reported Cephalexin 500 Mg Capsule 1 Cap PO DAILY Tova-D 24 Hour Tablet (Fexofenadine/Pseudoephedrine) 1 Each Tab.er.24h 1 Tab PO DAILY Levothyroxine Sodium 88 Mcg Tablet 88 Mcg PO DAILY Citalopram Hbr (Citalopram Hydrobromide) 40 Mg Tablet 40 Mg PO DAILY Allopurinol 100 Mg Tablet 100 Mg PO DAILY Pantoprazole Sodium 40 Mg Tablet.dr 40 Mg PO DAILY Aspir-Low (Aspirin) 81 Mg Tablet.dr 1 Tab PO DAILY Simvastatin 80 Mg Tablet 1 Tab PO QHS Furosemide 40 Mg Tablet 1 Tab PO DAILY Allergies Allergies: Coded Allergies: No Known Drug Allergies (Unverified , 03/02/14) ROS Review of System As per HPI Physical Exam Physical Exam GENERAL: not in distress. HEENT: NAD. NECK: Supple, no JVP, no lymphadenopathy. LUNGS: Clear. HEART: S1, S2 regular. ABDOMEN: Benign. EXTREMITIES: LLE chronic stasis dermatitis +. Right lower extremity/-redness and warmth NEUROLOGIC: AxO x 3 No CVA or SP tenderness, No marcano Skin No rash Vital Signs Vital Signs Date Time Temp Pulse Resp B/P (MAP) Pulse Ox O2 Delivery O2 Flow Rate FiO2 01/08/18 11:06 97.1 80 16 113/52 (72) 92 Nasal Cannula 2.0 97.1 Assessment & Plan CKD stage 3 - Stable renal function, E-Lytes, acid base stable Baseline same at least since 2013 Used to follow with Dr. Nation Fever with chills/ Leukocytosis. Urinary tract infection with sepsis. Right leg cellulitis- On Abx Discussed with patient that her renal function is stable Labs Labs Laboratory Tests Test 01/06/18 20:20 01/06/18 21:39 01/06/18 22:20 01/07/18 00:55 White Blood Count 12.4 x10^3/uL (4.0-11.0) 15.7 x10^3/uL (4.0-11.0) Red Blood Count 4.29 x10^6/uL (3.50-5.40) 3.95 x10^6/uL (3.50-5.40) Hemoglobin 13.2 g/dL (12.0-15.5) 12.1 g/dL (12.0-15.5) Hematocrit 39.3 % (36.0-47.0) 35.9 % (36.0-47.0) Mean Corpuscular Volume 92 fL (79-100) 91 fL (79-100) Mean Corpuscular Hemoglobin 31 pg (25-35) 31 pg (25-35) Mean Corpuscular Hemoglobin Concent 34 g/dL (31-37) 34 g/dL (31-37) Red Cell Distribution Width 15.5 % (11.5-14.5) 15.8 % (11.5-14.5) Platelet Count 242 x10^3/uL (140-400) 211 x10^3/uL (140-400) Neutrophils (%) (Auto) 86 % (31-73) 94 % (31-73) Lymphocytes (%) (Auto) 8 % (24-48) 2 % (24-48) Monocytes (%) (Auto) 5 % (0-9) 3 % (0-9) Eosinophils (%) (Auto) 1 % (0-3) 0 % (0-3) Basophils (%) (Auto) 0 % (0-3) 0 % (0-3) Neutrophils # (Auto) 10.7 x10^3uL (1.8-7.7) 14.8 x10^3uL (1.8-7.7) Lymphocytes # (Auto) 1.0 x10^3/uL (1.0-4.8) 0.4 x10^3/uL (1.0-4.8) Monocytes # (Auto) 0.6 x10^3/uL (0.0-1.1) 0.5 x10^3/uL (0.0-1.1) Eosinophils # (Auto) 0.1 x10^3/uL (0.0-0.7) 0.0 x10^3/uL (0.0-0.7) Basophils # (Auto) 0.0 x10^3/uL (0.0-0.2) 0.0 x10^3/uL (0.0-0.2) Segmented Neutrophils % 81 % (35-66) Band Neutrophils % 5 % (0-9) Lymphocytes % 9 % (24-48) Monocytes % 4 % (0-10) Eosinophils % 1 % (0-5) Platelet Estimate Adequate (ADEQUATE) Sodium Level 139 mmol/L (136-145) 143 mmol/L (136-145) Potassium Level 4.1 mmol/L (3.5-5.1) 3.8 mmol/L (3.5-5.1) Chloride Level 102 mmol/L (98-107) 105 mmol/L (98-107) Carbon Dioxide Level 30 mmol/L (21-32) 25 mmol/L (21-32) Anion Gap 7 (6-14) 13 (6-14) Blood Urea Nitrogen 30 mg/dL (7-20) 30 mg/dL (7-20) Creatinine 1.6 mg/dL (0.6-1.0) 1.6 mg/dL (0.6-1.0) Estimated GFR (Cockcroft-Gault) 30.6 30.6 BUN/Creatinine Ratio 19 (6-20) Glucose Level 107 mg/dL (70-99) 121 mg/dL (70-99) Lactic Acid Level 2.5 mmol/L (0.4-2.0) 2.0 mmol/L (0.4-2.0) Calcium Level 9.2 mg/dL (8.5-10.1) 8.5 mg/dL (8.5-10.1) Total Bilirubin 0.4 mg/dL (0.2-1.0) Aspartate Amino Transf (AST/SGOT) 16 U/L (15-37) Alanine Aminotransferase (ALT/SGPT) 13 U/L (14-59) Alkaline Phosphatase 88 U/L (46-116) Total Protein 8.1 g/dL (6.4-8.2) Albumin 3.7 g/dL (3.4-5.0) Albumin/Globulin Ratio 0.8 (1.0-1.7) Lipase 207 U/L (73-393) Procalcitonin < 0.10 ng/mL (0.00-0.10) Influenza Type A Antigen Negative (NEGATIVE) Influenza Type B Antigen Negative (NEGATIVE) Urine Collection Type Unknown Urine Color Yellow Urine Clarity Cloudy Urine pH 7.0 Urine Specific [place] 1.015 Urine Protein Negative mg/dL (NEG-TRACE) Urine Glucose (UA) Negative mg/dL (NEG) Urine Ketones (Stick) Negative mg/dL (NEG) Urine Blood Negative (NEG) Urine Nitrite Positive (NEG) Urine Bilirubin Small (NEG) Urine Urobilinogen Dipstick 1.0 mg/dL (0.2 mg/dL) Urine Leukocyte Esterase Large (NEG) Urine RBC 0 /HPF (0-2) Urine WBC Tntc /HPF (0-4) Urine Squamous Epithelial Cells Few /LPF Urine Bacteria Many /HPF (0-FEW) Test 01/08/18 04:32 01/08/18 04:52 White Blood Count 13.1 x10^3/uL (4.0-11.0) Red Blood Count 3.56 x10^6/uL (3.50-5.40) Hemoglobin 10.8 g/dL (12.0-15.5) Hematocrit 32.9 % (36.0-47.0) Mean Corpuscular Volume 92 fL (79-100) Mean Corpuscular Hemoglobin 30 pg (25-35) Mean Corpuscular Hemoglobin Concent 33 g/dL (31-37) Red Cell Distribution Width 15.9 % (11.5-14.5) Platelet Count 182 x10^3/uL (140-400) Neutrophils (%) (Auto) 84 % (31-73) Lymphocytes (%) (Auto) 9 % (24-48) Monocytes (%) (Auto) 7 % (0-9) Eosinophils (%) (Auto) 0 % (0-3) Basophils (%) (Auto) 0 % (0-3) Neutrophils # (Auto) 11.0 x10^3uL (1.8-7.7) Lymphocytes # (Auto) 1.1 x10^3/uL (1.0-4.8) Monocytes # (Auto) 0.9 x10^3/uL (0.0-1.1) Eosinophils # (Auto) 0.0 x10^3/uL (0.0-0.7) Basophils # (Auto) 0.0 x10^3/uL (0.0-0.2) Sodium Level 138 mmol/L (136-145) Potassium Level 3.7 mmol/L (3.5-5.1) Chloride Level 103 mmol/L (98-107) Carbon Dioxide Level 26 mmol/L (21-32) Anion Gap 9 (6-14) Blood Urea Nitrogen 30 mg/dL (7-20) Creatinine 1.5 mg/dL (0.6-1.0) Estimated GFR (Cockcroft-Gault) 32.9 BUN/Creatinine Ratio 20 (6-20) Glucose Level 110 mg/dL (70-99) Calcium Level 8.3 mg/dL (8.5-10.1) Total Bilirubin 0.4 mg/dL (0.2-1.0) Aspartate Amino Transf (AST/SGOT) 83 U/L (15-37) Alanine Aminotransferase (ALT/SGPT) 28 U/L (14-59) Alkaline Phosphatase 76 U/L (46-116) Total Protein 6.8 g/dL (6.4-8.2) Albumin 2.7 g/dL (3.4-5.0) Albumin/Globulin Ratio 0.7 (1.0-1.7) Lactic Acid Level 1.0 mmol/L (0.4-2.0) Laboratory Tests Test 01/08/18 04:32 01/08/18 04:52 White Blood Count 13.1 x10^3/uL (4.0-11.0) Red Blood Count 3.56 x10^6/uL (3.50-5.40) Hemoglobin 10.8 g/dL (12.0-15.5) Hematocrit 32.9 % (36.0-47.0) Mean Corpuscular Volume 92 fL (79-100) Mean Corpuscular Hemoglobin 30 pg (25-35) Mean Corpuscular Hemoglobin Concent 33 g/dL (31-37) Red Cell Distribution Width 15.9 % (11.5-14.5) Platelet Count 182 x10^3/uL (140-400) Neutrophils (%) (Auto) 84 % (31-73) Lymphocytes (%) (Auto) 9 % (24-48) Monocytes (%) (Auto) 7 % (0-9) Eosinophils (%) (Auto) 0 % (0-3) Basophils (%) (Auto) 0 % (0-3) Neutrophils # (Auto) 11.0 x10^3uL (1.8-7.7) Lymphocytes # (Auto) 1.1 x10^3/uL (1.0-4.8) Monocytes # (Auto) 0.9 x10^3/uL (0.0-1.1) Eosinophils # (Auto) 0.0 x10^3/uL (0.0-0.7) Basophils # (Auto) 0.0 x10^3/uL (0.0-0.2) Sodium Level 138 mmol/L (136-145) Potassium Level 3.7 mmol/L (3.5-5.1) Chloride Level 103 mmol/L (98-107) Carbon Dioxide Level 26 mmol/L (21-32) Anion Gap 9 (6-14) Blood Urea Nitrogen 30 mg/dL (7-20) Creatinine 1.5 mg/dL (0.6-1.0) Estimated GFR (Cockcroft-Gault) 32.9 BUN/Creatinine Ratio 20 (6-20) Glucose Level 110 mg/dL (70-99) Calcium Level 8.3 mg/dL (8.5-10.1) Total Bilirubin 0.4 mg/dL (0.2-1.0) Aspartate Amino Transf (AST/SGOT) 83 U/L (15-37) Alanine Aminotransferase (ALT/SGPT) 28 U/L (14-59) Alkaline Phosphatase 76 U/L (46-116) Total Protein 6.8 g/dL (6.4-8.2) Albumin 2.7 g/dL (3.4-5.0) Albumin/Globulin Ratio 0.7 (1.0-1.7) Lactic Acid Level 1.0 mmol/L (0.4-2.0) Review All relevant outside records, renal labs, imaging studies, telemetry/EKG's were reviewed. SHELLIE MURPHY MD Jan 08, 2018 15:02
--- NOTE | 2018-01-08 16:44 | RAD ---
Bilateral lower extremity arterial ultrasound History: Peripheral vascular disease Findings: Multiple grayscale, color, and duplex spectral analysis sonographic images were acquired of the lower extremity arteries bilaterally. There are no previous similar exams. There is edema of the soft tissues, reportedly exam difficult as arteries more difficult to visualize. There are mostly biphasic waveforms throughout the lower extremity arteries bilaterally, no significant focal stenosis demonstrated. Velocities in cm/sec: RIGHT Common femoral artery 175 Profunda femoris artery 94 Proximal SFA 87 Mid SFA 127 Distal SFA 94 Popliteal artery 59 Anterior tibial artery 48 Peroneal artery 91 Dorsalis pedis artery 95 Posterior tibial artery 44 LEFT: Common femoral artery 143 Profunda femoris artery 114 Proximal SFA 125 Mid SFA 110 Distal SFA 123 Popliteal artery 109 Anterior tibial artery 126 Peroneal artery 92 Dorsalis pedis artery 69 Posterior tibial artery 78 Impression: 1. There are diffuse biphasic waveforms bilaterally, no significant focal stenosis or vessel occlusion demonstrated. There is edema of the soft tissues. Electronically signed by: Sam Barton MD (01/08/2018 4:41 PM) [id number]
[2018-01-08] MEDS ORDERED: HALOPERIDOL LACTATE 5 MG/ML VIAL. IVP PRN (17:30)
[2018-01-08 19:00] VITALS: BP 120/52
[2018-01-08] MEDS: SIMVASTATIN 40 MG TABLET. PO SCH (21:17)
[2018-01-08 23:00] VITALS: BP 103/57
[2018-01-09] MEDS: PIPERACILLIN/TAZOBACTAM 2.25 GM in IV NORMAL SALINE 50ML 50 ML IV SCH ×5 (01:55→23:31)
[2018-01-09] MEDS: oxyCODONE/APAP 5/325 1 TAB TABLET PO PRN ×2 (02:06→20:50)
[2018-01-09 03:00] VITALS: BP 119/71
[2018-01-09 04:30] LABS: BASO # 0.1 x10^3/uL (0.0-0.2); BASO % 1 % (0-3); EOS % 0 % (0-3); HEMOGLOBIN 10.8 g/dL (12.0-15.5); LYMPH # 0.9 x10^3/uL (1.0-4.8); LYMPH % 8 % (24-48); MEAN CORPUSCULAR HEMOGLOBIN 31 pg (25-35); MEAN CORPUSCULAR HGB CONC 34 g/dL (31-37); MEAN CORPUSCULAR VOLUME 92 fL (79-100); MONO # 0.8 x10^3/uL (0.0-1.1); MONO % 7 % (0-9); NEUT # 9.5 x10^3uL (1.8-7.7); NEUT % 83 % (31-73); PLATELET COUNT 188 x10^3/uL (140-400); RED BLOOD COUNT 3.48 x10^6/uL (3.50-5.40); RED CELL DISTRIBUTION WIDTH 15.9 % (11.5-14.5); WHITE BLOOD COUNT 11.4 x10^3/uL (4.0-11.0)
[2018-01-09 05:05] LABS: ALBUMIN 2.7 g/dL (3.4-5.0); CALCIUM 8.5 mg/dL (8.5-10.1); CREATININE 1.5 mg/dL (0.6-1.0); GFR 32.9; PHOSPHORUS 3.5 mg/dL (2.6-4.7); POTASSIUM 3.7 mmol/L (3.5-5.1)
[2018-01-09] MEDS: LEVOTHYROXINE 88 MCG TABLET PO SCH (06:15)
[2018-01-09] MEDS: PANTOPRAZOLE 40 MG TABLET.DR. PO SCH ×2 (06:16→08:25)
[2018-01-09 07:15] VITALS: BP 129/71
--- NOTE | 2018-01-09 07:52 | RAD ---
Portable chest, 01/09/2018: HISTORY: Check PICC placement Comparison is made to a study from 01/06/2018. A right PICC has been inserted extending into the superior aspect of the right atrium. The heart is at the upper limits of normal in size. There is calcific plaquing and tortuosity of the thoracic aorta. The superior mediastinum on the right remains prominent, accentuated by the AP technique. There are mild bilateral pulmonary opacities with poor definition of the underlying pulmonary vascularity. This is most evident when compared to an older study from 08/10/2017. There is no evidence of pleural fluid or pneumothorax. IMPRESSION: 1. A right PICC has been inserted extending into the superior aspect the right atrium. 2. Unchanged superior mediastinal prominence. 3. Mild bilateral pulmonary opacities suggesting mild perihilar-perivascular pulmonary edema. Pneumonia cannot be excluded. Electronically signed by: Pino Knutson MD (01/09/2018 7:49 AM) [facility]
--- NOTE | 2018-01-09 08:19 | RAD ---
Left foot, 3 views, 01/08/2018: HISTORY: Bilateral foot swelling, edema, cellulitis, diabetes There is moderate scattered degenerative changes, most prominent at the first MTP joint. There is a mild hallux valgus deformity. No acute fracture or destructive bony lesion is seen. Diffuse soft tissue swelling is evident. IMPRESSION: 1. Moderate degenerative change. 2. No acute bony abnormality is detected. Left ankle, 2 views, 01/08/2018: No fracture or destructive bony lesion is seen. There is diffuse soft tissue swelling. IMPRESSION: No acute left ankle abnormality is detected. Right foot, 3 views, 01/08/2018: There are moderate moderate scattered degenerative changes, most prominent at the first MTP joint. There is a moderate hallux valgus deformity. No fracture or destructive bony lesion is seen. Moderate diffuse soft tissue swelling is present. IMPRESSION: 1. Moderate degenerative change. 2. No acute bony abnormality is detected. Right ankle, 2 views, 01/08/2018: There is mild degenerative change at the ankle joint. No fracture or dislocation is identified. Diffuse soft tissue swelling is noted. IMPRESSION: No acute bony abnormality is detected. Electronically signed by: Pino Knutson MD (01/09/2018 8:16 AM) [facility]
[2018-01-09] MEDS: PSEUDOEPHEDRINE ER 120 MG TABLET.ER. PO SCH ×2 (08:24→20:49)
[2018-01-09] MEDS: LINEZOLID 600 MG TABLET PO SCH (08:24)
[2018-01-09] MEDS: CETIRIZINE HCL 10 MG TABLET. PO SCH (08:25)
[2018-01-09] MEDS: ALLOPURINOL 100 MG TABLET. PO SCH (08:25)
[2018-01-09] MEDS: CITALOPRAM 20 MG TABLET. PO SCH (08:25)
[2018-01-09] MEDS: FUROSEMIDE 40 MG TABLET. PO SCH (08:25)
[2018-01-09] MEDS: LACTOBACILLUS RHAMNOSUS GG 1 CAPSULE. PO SCH ×2 (08:25→20:49)
[2018-01-09] MEDS: ASPIRIN ENTERIC COATED 81 MG TABLET.DR. PO SCH (08:27)
[2018-01-09 11:06] VITALS: BP 137/73
[2018-01-09] MEDS ORDERED: CYANOCOBALAMIN (VITAMIN B-12) 1,000 MCG/ML VIAL IM ONE (11:30)
--- NOTE | 2018-01-09 11:50 | PDOC ---
PROGRESS NOTES Chief Complaint Chief Complaint sepsis, consult ID UTI, very broad abx started, will continue acute on chronic LE cellulitis, , recent surg to skin lesion, Fever and chills Leukocytosis UTI with sepsis Rt leg cellulitis Chronic stasis dermatitis Renal insufficiency Plan zosyn and zyvox leg elevation check bc and urine culture 'obesity, BMI 39 CKD 3-4, hydrate, renal consultsepsis, consult ID UTI, very broad abx started, will continue acute on chronic LE cellulitis, , recent surg to skin lesion, Fever and chills Leukocytosis UTI with sepsis Rt leg cellulitis Chronic stasis dermatitis Renal insufficiency History of Present Illness History of Present Illness zosyn and zyvox, blood cx neg, Urine cx pending, ID following, leg elevation check bc and urine culture will need snu final cx resutls pending she requested a B12 shot, has been getting them monthly Dr. Serrano Vitals Vitals Vital Signs Date Time Temp Pulse Resp B/P (MAP) Pulse Ox O2 Delivery O2 Flow Rate FiO2 01/09/18 11:06 97.1 81 18 137/73 (94) 93 Room Air 97.1 01/09/18 07:15 2.0 Physical Exam Physical Exam GENERAL: Alert and oriented female, not in distress. VITAL SIGNS: Stable, HEENT: NAD. NECK: Supple, no JVP, no lymphadenopathy. LUNGS: Clear. HEART: S1, S2 regular. ABDOMEN: Benign. EXTREMITIES: Left lower extremity has chronic stasis dermatitis present. Right lower extremity has chronic stasis dermatitis on top of that what appears to be acute cellulitis with redness and warmth to it and much more than her usual redness. NEUROLOGIC: The patient is neurologically intact. General: Alert, Cooperative, mild distress Lungs: Clear Abdomen: Soft Extremities: No cyanosis, No edema, Normal pulses Skin: No rashes Labs LABS Laboratory Tests Test 01/09/18 03:55 White Blood Count 11.4 x10^3/uL (4.0-11.0) Red Blood Count 3.48 x10^6/uL (3.50-5.40) Hemoglobin 10.8 g/dL (12.0-15.5) Hematocrit 32.0 % (36.0-47.0) Mean Corpuscular Volume 92 fL (79-100) Mean Corpuscular Hemoglobin 31 pg (25-35) Mean Corpuscular Hemoglobin Concent 34 g/dL (31-37) Red Cell Distribution Width 15.9 % (11.5-14.5) Platelet Count 188 x10^3/uL (140-400) Neutrophils (%) (Auto) 83 % (31-73) Lymphocytes (%) (Auto) 8 % (24-48) Monocytes (%) (Auto) 7 % (0-9) Eosinophils (%) (Auto) 0 % (0-3) Basophils (%) (Auto) 1 % (0-3) Neutrophils # (Auto) 9.5 x10^3uL (1.8-7.7) Lymphocytes # (Auto) 0.9 x10^3/uL (1.0-4.8) Monocytes # (Auto) 0.8 x10^3/uL (0.0-1.1) Eosinophils # (Auto) 0.0 x10^3/uL (0.0-0.7) Basophils # (Auto) 0.1 x10^3/uL (0.0-0.2) Sodium Level 137 mmol/L (136-145) Potassium Level 3.7 mmol/L (3.5-5.1) Chloride Level 103 mmol/L (98-107) Carbon Dioxide Level 28 mmol/L (21-32) Anion Gap 6 (6-14) Blood Urea Nitrogen 31 mg/dL (7-20) Creatinine 1.5 mg/dL (0.6-1.0) Estimated GFR (Cockcroft-Gault) 32.9 Glucose Level 125 mg/dL (70-99) Calcium Level 8.5 mg/dL (8.5-10.1) Phosphorus Level 3.5 mg/dL (2.6-4.7) Albumin 2.7 g/dL (3.4-5.0) Assessment and Plan Assessmemt and Plan Problems Medical Problems: (1) Bilateral lower leg cellulitis Status: Acute (2) Fever Status: Acute (3) Sepsis Status: Acute (4) Urinary tract infection Status: Acute Comment Review of Relevant I have reviewed the following items javan (where applicable) has been applied. Labs Laboratory Tests Test 01/08/18 04:32 01/08/18 04:52 01/09/18 03:55 White Blood Count 13.1 x10^3/uL (4.0-11.0) 11.4 x10^3/uL (4.0-11.0) Red Blood Count 3.56 x10^6/uL (3.50-5.40) 3.48 x10^6/uL (3.50-5.40) Hemoglobin 10.8 g/dL (12.0-15.5) 10.8 g/dL (12.0-15.5) Hematocrit 32.9 % (36.0-47.0) 32.0 % (36.0-47.0) Mean Corpuscular Volume 92 fL (79-100) 92 fL (79-100) Mean Corpuscular Hemoglobin 30 pg (25-35) 31 pg (25-35) Mean Corpuscular Hemoglobin Concent 33 g/dL (31-37) 34 g/dL (31-37) Red Cell Distribution Width 15.9 % (11.5-14.5) 15.9 % (11.5-14.5) Platelet Count 182 x10^3/uL (140-400) 188 x10^3/uL (140-400) Neutrophils (%) (Auto) 84 % (31-73) 83 % (31-73) Lymphocytes (%) (Auto) 9 % (24-48) 8 % (24-48) Monocytes (%) (Auto) 7 % (0-9) 7 % (0-9) Eosinophils (%) (Auto) 0 % (0-3) 0 % (0-3) Basophils (%) (Auto) 0 % (0-3) 1 % (0-3) Neutrophils # (Auto) 11.0 x10^3uL (1.8-7.7) 9.5 x10^3uL (1.8-7.7) Lymphocytes # (Auto) 1.1 x10^3/uL (1.0-4.8) 0.9 x10^3/uL (1.0-4.8) Monocytes # (Auto) 0.9 x10^3/uL (0.0-1.1) 0.8 x10^3/uL (0.0-1.1) Eosinophils # (Auto) 0.0 x10^3/uL (0.0-0.7) 0.0 x10^3/uL (0.0-0.7) Basophils # (Auto) 0.0 x10^3/uL (0.0-0.2) 0.1 x10^3/uL (0.0-0.2) Sodium Level 138 mmol/L (136-145) 137 mmol/L (136-145) Potassium Level 3.7 mmol/L (3.5-5.1) 3.7 mmol/L (3.5-5.1) Chloride Level 103 mmol/L (98-107) 103 mmol/L (98-107) Carbon Dioxide Level 26 mmol/L (21-32) 28 mmol/L (21-32) Anion Gap 9 (6-14) 6 (6-14) Blood Urea Nitrogen 30 mg/dL (7-20) 31 mg/dL (7-20) Creatinine 1.5 mg/dL (0.6-1.0) 1.5 mg/dL (0.6-1.0) Estimated GFR (Cockcroft-Gault) 32.9 32.9 BUN/Creatinine Ratio 20 (6-20) Glucose Level 110 mg/dL (70-99) 125 mg/dL (70-99) Calcium Level 8.3 mg/dL (8.5-10.1) 8.5 mg/dL (8.5-10.1) Total Bilirubin 0.4 mg/dL (0.2-1.0) Aspartate Amino Transf (AST/SGOT) 83 U/L (15-37) Alanine Aminotransferase (ALT/SGPT) 28 U/L (14-59) Alkaline Phosphatase 76 U/L (46-116) Total Protein 6.8 g/dL (6.4-8.2) Albumin 2.7 g/dL (3.4-5.0) 2.7 g/dL (3.4-5.0) Albumin/Globulin Ratio 0.7 (1.0-1.7) Lactic Acid Level 1.0 mmol/L (0.4-2.0) Phosphorus Level 3.5 mg/dL (2.6-4.7) Laboratory Tests Test 01/09/18 03:55 White Blood Count 11.4 x10^3/uL (4.0-11.0) Red Blood Count 3.48 x10^6/uL (3.50-5.40) Hemoglobin 10.8 g/dL (12.0-15.5) Hematocrit 32.0 % (36.0-47.0) Mean Corpuscular Volume 92 fL (79-100) Mean Corpuscular Hemoglobin 31 pg (25-35) Mean Corpuscular Hemoglobin Concent 34 g/dL (31-37) Red Cell Distribution Width 15.9 % (11.5-14.5) Platelet Count 188 x10^3/uL (140-400) Neutrophils (%) (Auto) 83 % (31-73) Lymphocytes (%) (Auto) 8 % (24-48) Monocytes (%) (Auto) 7 % (0-9) Eosinophils (%) (Auto) 0 % (0-3) Basophils (%) (Auto) 1 % (0-3) Neutrophils # (Auto) 9.5 x10^3uL (1.8-7.7) Lymphocytes # (Auto) 0.9 x10^3/uL (1.0-4.8) Monocytes # (Auto) 0.8 x10^3/uL (0.0-1.1) Eosinophils # (Auto) 0.0 x10^3/uL (0.0-0.7) Basophils # (Auto) 0.1 x10^3/uL (0.0-0.2) Sodium Level 137 mmol/L (136-145) Potassium Level 3.7 mmol/L (3.5-5.1) Chloride Level 103 mmol/L (98-107) Carbon Dioxide Level 28 mmol/L (21-32) Anion Gap 6 (6-14) Blood Urea Nitrogen 31 mg/dL (7-20) Creatinine 1.5 mg/dL (0.6-1.0) Estimated GFR (Cockcroft-Gault) 32.9 Glucose Level 125 mg/dL (70-99) Calcium Level 8.5 mg/dL (8.5-10.1) Phosphorus Level 3.5 mg/dL (2.6-4.7) Albumin 2.7 g/dL (3.4-5.0) Microbiology 01/07/18 Blood Culture - Preliminary, Resulted NO GROWTH AFTER 2 DAYS 01/06/18 Urine Culture - Preliminary, Resulted 01/06/18 Urine Culture Result 1 (SALTY) - Preliminary, Resulted Medications Current Medications Sodium Chloride 1,380 ml @ 1,380 mls/hr Q1H IV Last administered on 01/06/18at 20:15; Start 01/06/18 at 20:15; Stop 01/07/18 at 13:24; Status DC Sodium Chloride 500 ml @ 1,000 mls/hr PRN Q30MIN PRN IV SEE COMMENTS; Start at 20:15 Vancomycin HCl (Vanco Per Pharmacy) 1 each PRN DAILY PRN MC SEE COMMENTS Last administered on 01/07/18at 02:48; Start 01/06/18 at 20:15; Stop 01/07/18 at 13:25 ; Status DC Piperacillin Sod/ Tazobactam Sod 4.5 gm/Sodium Chloride 100 ml @ 200 mls/hr Q6HRS IV ; Start 01/07/18 at 00:00; Status UNV Acetaminophen (Tylenol) 1,000 mg 1X ONCE PO Last administered on 01/06/18at 20: 15; Start 01/06/18 at 20:15; Stop 01/06/18 at 20:16; Status DC Vancomycin HCl 2 gm/Sodium Chloride 500 ml @ 250 mls/hr 1X ONCE IV Last administered on 01/06/18at 21:37; Start 01/06/18 at 20:15; Stop 01/06/18 at 22:14 ; Status DC Piperacillin Sod/ Tazobactam Sod 3.375 gm/Sodium Chloride 50 ml @ 100 mls/hr 1X ONCE IV Last administered on 01/06/18at 20:40; Start 01/06/18 at 20:15; Stop 01/06/18 at 20:44; Status DC Piperacillin Sod/ Tazobactam Sod (Zosyn Per Pharmacy) 1 each PRN DAILY PRN MC SEE COMMENTS; Start 01/06/18 at 22:00 Morphine Sulfate (Morphine Sulfate) 5 mg 1X ONCE IV Last administered on at 22:30; Start 01/06/18 at 22:30; Stop 01/06/18 at 22:31; Status DC Ondansetron HCl (Zofran) 4 mg PRN Q8HRS PRN IV NAUSEA/VOMITING 1ST CHOICE; Start 01/07/18 at 00:00; Stop 01/07/18 at 23:59; Status DC Morphine Sulfate (Morphine Sulfate) 4 mg PRN Q2HR PRN IV SEVERE PAIN; Start at 00:00; Stop 01/07/18 at 23:59; Status DC Acetaminophen (Tylenol) 650 mg PRN Q4HRS PRN PO FEVER Last administered on 01/07at 05:52; Start 01/07/18 at 00:00; Stop 01/07/18 at 23:59; Status DC Sodium Chloride 1,000 ml @ 125 mls/hr 1X ONCE IV Last administered on at 01:10; Start 01/07/18 at 00:00; Stop 01/07/18 at 07:59; Status DC Vancomycin HCl 1.25 gm/Sodium Chloride 250 ml @ 167 mls/hr Q24H IV ; Start at 22:00; Stop 01/07/18 at 22:00; Status DC Vancomycin HCl (Vancomycin Trough Level) 1 each 1X ONCE MC ; Start 01/08/18 at 21:30; Stop 01/08/18 at 21:30; Status DC Piperacillin Sod/ Tazobactam Sod 2.25 gm/Sodium Chloride 50 ml @ 100 mls/hr Q6HRS IV Last administered on 01/09/18at 06:15; Start 01/07/18 at 06:00 Morphine Sulfate (Morphine Sulfate) 2 mg PRN Q2HR PRN IV PAIN Last administered on 01/07/18at 20:25; Start 01/07/18 at 06:00; Stop 01/08/18 at 06:26 ; Status DC Lactobacillus Rhamnosus (Culturelle) 1 cap BID PO Last administered on at 08:25; Start 01/07/18 at 09:00 Allopurinol (Zyloprim) 100 mg DAILY PO Last administered on 01/09/18at 08:25; Start 01/07/18 at 15:00 Aspirin (Ecotrin) 81 mg DAILY PO Last administered on 01/09/18at 08:27; Start at 15:00 Furosemide (Lasix) 40 mg DAILY PO Last administered on 01/09/18at 08:25; Start 01/07/18 at 15:00 Levothyroxine Sodium (Synthroid) 88 mcg DAILY07 PO Last administered on at 06:15; Start 01/07/18 at 15:00 Pantoprazole Sodium (Protonix) 40 mg DAILYAC PO Last administered on 01/09/18at 08:25; Start 01/07/18 at 15:00 Non-Formulary Medication (Cefpodoxime Proxetil ) 500 mg DAILY PO ; Start at 09:00; Status UNV Citalopram Hydrobromide (CeleXA) 40 mg DAILY PO Last administered on 01/09/18 08:25; Start 01/07/18 at 15:00 Cetirizine HCl (ZyrTEC) 10 mg DAILY PO Last administered on 01/09/18 08:25; Start 01/08/18 at 09:00 Simvastatin (Zocor) 80 mg QHS PO Last administered on 01/08/18at 21:17; Start at 21:00 Pseudoephedrine HCl (Sudafed 12-Hour) 120 mg BID PO Last administered on 08:24; Start 01/08/18 at 09:00 Linezolid (Zyvox) 600 mg BID PO Last administered on 01/09/18at 08:24; Start at 14:00 Oxycodone/ Acetaminophen (Percocet 5/325) 1 tab PRN Q4HRS PRN PO MODERATE PAIN Last administered on 01/09/18at 02:06; Start 01/08/18 at 06:30 Haloperidol Lactate (Haldol Inj) 1 mg PRN Q6HRS PRN IVP AGITATION; Start at 17:30 Cyanocobalamin (Vitamin B-12) 1,000 mcg 1X ONCE IM ; Start 01/09/18 at 11:30; Stop 01/09/18 at 11:31; Status DC Active Scripts Active Reported Cephalexin 500 Mg Capsule 1 Cap PO DAILY Tova-D 24 Hour Tablet (Fexofenadine/Pseudoephedrine) 1 Each Tab.er.24h 1 Tab PO DAILY Levothyroxine Sodium 88 Mcg Tablet 88 Mcg PO DAILY Citalopram Hbr (Citalopram Hydrobromide) 40 Mg Tablet 40 Mg PO DAILY Allopurinol 100 Mg Tablet 100 Mg PO DAILY Pantoprazole Sodium 40 Mg Tablet.dr 40 Mg PO DAILY Aspir-Low (Aspirin) 81 Mg Tablet.dr 1 Tab PO DAILY Simvastatin 80 Mg Tablet 1 Tab PO QHS Furosemide 40 Mg Tablet 1 Tab PO DAILY Vitals/I & O Vital Sign - Last 24 Hours 01/08/18 01/08/18 01/08/18 01/08/18 15:02 15:46 19:00 20:00 Temp 97.7 97.9 97.7 97.9 Pulse 89 103 Resp 18 20 B/P (MAP) 134/65 (88) 120/52 (74) Pulse Ox 93 94 91 O2 Delivery Nasal Cannula Room Air Nasal Cannula Room Air O2 Flow Rate 2.0 2.0 01/08/18 01/09/18 01/09/18 01/09/18 23:00 03:00 06:19 07:15 Temp 97.7 96.7 97.1 97.7 96.7 97.1 Pulse 95 85 77 Resp 20 18 16 B/P (MAP) 103/57 (72) 119/71 (87) 129/71 (90) Pulse Ox 90 96 96 93 O2 Delivery Nasal Cannula Nasal Cannula Room Air Nasal Cannula O2 Flow Rate 2.0 2.0 2.0 2.0 01/09/18 01/09/18 08:00 11:06 Temp 97.1 97.1 Pulse 81 Resp 18 B/P (MAP) 137/73 (94) Pulse Ox 93 O2 Delivery Room Air Room Air Intake and Output 01/08/18 01/08/18 01/09/18 15:00 23:00 07:00 Intake Total 1270 ml Output Total 350 ml Balance -350 ml 1270 ml HYUN DOOLEY MD Jan 09, 2018 11:50
--- NOTE | 2018-01-09 12:51 | PDOC ---
SUBJECTIVE ROS No new concerns OBJECTIVE Vital Signs Vital Signs Date Time Temp Pulse Resp B/P (MAP) Pulse Ox O2 Delivery O2 Flow Rate FiO2 01/09/18 11:06 97.1 81 18 137/73 (94) 93 Room Air 97.1 01/09/18 07:15 2.0 I & 0 Intake and Output 01/09/18 07:00 Intake Total 1270 ml Output Total 350 ml Balance 920 ml Intake Oral 1220 ml IV Total 50 ml Output Urine Total 350 ml # Voids 4 PHYSICAL EXAM Physical Exam GENERAL: not in distress. HEENT: NAD. NECK: Supple, no JVP, no lymphadenopathy. LUNGS: Clear. HEART: S1, S2 regular. ABDOMEN: Benign. EXTREMITIES: LLE chronic stasis dermatitis +. Right lower extremity/-redness and warmth NEUROLOGIC: AxO x 3 No CVA or SP tenderness, No marcano Skin No rash DIAGNOSIS/ASSESSMENT Assessment & Plan CKD stage 3 - Stable renal function, E-Lytes, acid base stable Baseline same at least since 2013 Used to follow with Dr. Nation Fever with chills/ Leukocytosis. Urinary tract infection with sepsis ID following Right leg cellulitis- On Abx Problems: COMMENT/RELEVANT DATA Meds Current Medications Medications (Trade) Dose Ordered Sig/Dimple Start Time Stop Time Status Last Admin Dose Admin Acetaminophen (Tylenol) 650 mg PRN Q4HRS PRN 01/07/18 00:00 01/07/18 23:59 DC 01/07/18 05:52 650 MG Allopurinol (Zyloprim) 100 mg DAILY 01/07/18 15:00 01/09/18 08:25 100 MG Aspirin (Ecotrin) 81 mg DAILY 01/07/18 15:00 01/09/18 08:27 81 MG Cetirizine HCl (ZyrTEC) 10 mg DAILY 01/08/18 09:00 01/09/18 08:25 10 MG Citalopram Hydrobromide (CeleXA) 40 mg DAILY 01/07/18 15:00 01/09/18 08:25 40 MG Cyanocobalamin (Vitamin B-12) 1,000 mcg 1X ONCE 01/09/18 11:30 01/09/18 11:31 DC 01/09/18 11:30 1,000 MCG Furosemide (Lasix) 40 mg DAILY 01/07/18 15:00 01/09/18 08:25 40 MG Haloperidol Lactate (Haldol Inj) 1 mg PRN Q6HRS PRN 01/08/18 17:30 Lactobacillus Rhamnosus (Culturelle) 1 cap BID 01/07/18 09:00 01/09/18 08:25 1 CAP Levothyroxine Sodium (Synthroid) 88 mcg DAILY07 01/07/18 15:00 01/09/18 06:15 88 MCG Linezolid (Zyvox) 600 mg BID 01/07/18 14:00 01/09/18 08:24 600 MG Morphine Sulfate (Morphine Sulfate) 2 mg PRN Q2HR PRN 01/07/18 06:00 01/08/18 06:26 DC 01/07/18 20:25 2 MG Non-Formulary Medication (Cefpodoxime Proxetil ) 500 mg DAILY 01/08/18 09:00 UNV Ondansetron HCl (Zofran) 4 mg PRN Q8HRS PRN 01/07/18 00:00 01/07/18 23:59 DC Oxycodone/ Acetaminophen (Percocet 5/325) 1 tab PRN Q4HRS PRN 01/08/18 06:30 01/09/18 02:06 1 TAB Pantoprazole Sodium (Protonix) 40 mg DAILYAC 01/07/18 15:00 01/09/18 08:25 40 MG Piperacillin Sod/ Tazobactam Sod (Zosyn Per Pharmacy) 1 each PRN DAILY PRN 01/06/18 22:00 Piperacillin Sod/ Tazobactam Sod 2.25 gm/Sodium Chloride 50 ml @ 100 mls/hr Q6HRS 01/07/18 06:00 01/09/18 11:55 100 MLS/HR Piperacillin Sod/ Tazobactam Sod 3.375 gm/Sodium Chloride 50 ml @ 100 mls/hr 1X ONCE 01/06/18 20:15 01/06/18 20:44 DC 01/06/18 20:40 100 MLS/HR Piperacillin Sod/ Tazobactam Sod 4.5 gm/Sodium Chloride 100 ml @ 200 mls/hr Q6HRS 01/07/18 00:00 UNV Pseudoephedrine HCl (Sudafed 12-Hour) 120 mg BID 01/08/18 09:00 01/09/18 08:24 120 MG Simvastatin (Zocor) 80 mg QHS 01/07/18 21:00 01/08/18 21:17 80 MG Sodium Chloride 1,000 ml @ 125 mls/hr 1X ONCE 01/07/18 00:00 01/07/18 07:59 DC 01/07/18 01:10 125 MLS/HR Vancomycin HCl (Vanco Per Pharmacy) 1 each PRN DAILY PRN 01/06/18 20:15 01/07/18 13:25 DC 01/07/18 02:48 1 EACH Vancomycin HCl (Vancomycin Trough Level) 1 each 1X ONCE 01/08/18 21:30 01/08/18 21:30 DC Vancomycin HCl 1.25 gm/Sodium Chloride 250 ml @ 167 mls/hr Q24H 01/07/18 22:00 01/07/18 22:00 DC Vancomycin HCl 2 gm/Sodium Chloride 500 ml @ 250 mls/hr 1X ONCE 01/06/18 20:15 01/06/18 22:14 DC 01/06/18 21:37 250 MLS/HR Lab Laboratory Tests Test 01/09/18 03:55 White Blood Count 11.4 x10^3/uL (4.0-11.0) Red Blood Count 3.48 x10^6/uL (3.50-5.40) Hemoglobin 10.8 g/dL (12.0-15.5) Hematocrit 32.0 % (36.0-47.0) Mean Corpuscular Volume 92 fL (79-100) Mean Corpuscular Hemoglobin 31 pg (25-35) Mean Corpuscular Hemoglobin Concent 34 g/dL (31-37) Red Cell Distribution Width 15.9 % (11.5-14.5) Platelet Count 188 x10^3/uL (140-400) Neutrophils (%) (Auto) 83 % (31-73) Lymphocytes (%) (Auto) 8 % (24-48) Monocytes (%) (Auto) 7 % (0-9) Eosinophils (%) (Auto) 0 % (0-3) Basophils (%) (Auto) 1 % (0-3) Neutrophils # (Auto) 9.5 x10^3uL (1.8-7.7) Lymphocytes # (Auto) 0.9 x10^3/uL (1.0-4.8) Monocytes # (Auto) 0.8 x10^3/uL (0.0-1.1) Eosinophils # (Auto) 0.0 x10^3/uL (0.0-0.7) Basophils # (Auto) 0.1 x10^3/uL (0.0-0.2) Sodium Level 137 mmol/L (136-145) Potassium Level 3.7 mmol/L (3.5-5.1) Chloride Level 103 mmol/L (98-107) Carbon Dioxide Level 28 mmol/L (21-32) Anion Gap 6 (6-14) Blood Urea Nitrogen 31 mg/dL (7-20) Creatinine 1.5 mg/dL (0.6-1.0) Estimated GFR (Cockcroft-Gault) 32.9 Glucose Level 125 mg/dL (70-99) Calcium Level 8.5 mg/dL (8.5-10.1) Phosphorus Level 3.5 mg/dL (2.6-4.7) Albumin 2.7 g/dL (3.4-5.0) Results All relevant outside records, renal labs, imaging studies, telemetry/EKG's were reviewed CxR Unchanged superior mediastinal prominence. Mild bilateral pulmonary opacities suggesting mild perihilar-perivascular pulmonary edema. Pneumonia cannot be excluded. SHELLIE MURPHY MD Jan 09, 2018 12:51
--- NOTE | 2018-01-09 14:16 | PDOC ---
Infectious Disease Note Subjective Subjective pt is feeling better ROS ROS no n/v/d/sob Vital Sign Vital Signs Vital Signs Date Time Temp Pulse Resp B/P (MAP) Pulse Ox O2 Delivery O2 Flow Rate FiO2 01/09/18 11:06 97.1 81 18 137/73 (94) 93 Room Air 97.1 01/09/18 07:15 2.0 Physical Exam PHYSICAL EXAM GENERAL: Alert and oriented female, not in distress. VITAL SIGNS: Stable, HEENT: NAD. NECK: Supple, no JVP, no lymphadenopathy. LUNGS: Clear. HEART: S1, S2 regular. ABDOMEN: Benign. EXTREMITIES: Left lower extremity has chronic stasis dermatitis present. Right lower extremity has chronic stasis dermatitis on top of that what appears to be acute cellulitis with redness and warmth to it and much more than her usual redness. NEUROLOGIC: The patient is neurologically intact. Labs Lab Laboratory Tests Test 01/09/18 03:55 White Blood Count 11.4 x10^3/uL (4.0-11.0) Red Blood Count 3.48 x10^6/uL (3.50-5.40) Hemoglobin 10.8 g/dL (12.0-15.5) Hematocrit 32.0 % (36.0-47.0) Mean Corpuscular Volume 92 fL (79-100) Mean Corpuscular Hemoglobin 31 pg (25-35) Mean Corpuscular Hemoglobin Concent 34 g/dL (31-37) Red Cell Distribution Width 15.9 % (11.5-14.5) Platelet Count 188 x10^3/uL (140-400) Neutrophils (%) (Auto) 83 % (31-73) Lymphocytes (%) (Auto) 8 % (24-48) Monocytes (%) (Auto) 7 % (0-9) Eosinophils (%) (Auto) 0 % (0-3) Basophils (%) (Auto) 1 % (0-3) Neutrophils # (Auto) 9.5 x10^3uL (1.8-7.7) Lymphocytes # (Auto) 0.9 x10^3/uL (1.0-4.8) Monocytes # (Auto) 0.8 x10^3/uL (0.0-1.1) Eosinophils # (Auto) 0.0 x10^3/uL (0.0-0.7) Basophils # (Auto) 0.1 x10^3/uL (0.0-0.2) Sodium Level 137 mmol/L (136-145) Potassium Level 3.7 mmol/L (3.5-5.1) Chloride Level 103 mmol/L (98-107) Carbon Dioxide Level 28 mmol/L (21-32) Anion Gap 6 (6-14) Blood Urea Nitrogen 31 mg/dL (7-20) Creatinine 1.5 mg/dL (0.6-1.0) Estimated GFR (Cockcroft-Gault) 32.9 Glucose Level 125 mg/dL (70-99) Calcium Level 8.5 mg/dL (8.5-10.1) Phosphorus Level 3.5 mg/dL (2.6-4.7) Albumin 2.7 g/dL (3.4-5.0) Micro Microbiology 01/07/18 Blood Culture - Preliminary, Resulted NO GROWTH AFTER 1 DAY urine with G neg maxim Objective Assessment Fever and chills Leukocytosis UTI with sepsis Rt leg cellulitis Chronic stasis dermatitis Renal insufficiency Plan Plan of Care cont zosyn and d/c zyvox leg elevation check bc and urine culture supportive care EDUARDO RIZVI MD Jan 09, 2018 14:16
[2018-01-09 15:00] VITALS: BP 116/67
[2018-01-09 19:00] VITALS: BP 109/60
[2018-01-09] MEDS: SIMVASTATIN 40 MG TABLET. PO SCH (20:49)
[2018-01-09 23:00] VITALS: BP 131/70
[2018-01-10] MEDS: oxyCODONE/APAP 5/325 1 TAB TABLET PO PRN ×2 (01:20→09:13)
[2018-01-10 03:00] VITALS: BP 136/76
[2018-01-10] MEDS: LEVOTHYROXINE 88 MCG TABLET PO SCH (05:21)
[2018-01-10] MEDS: PIPERACILLIN/TAZOBACTAM 2.25 GM in IV NORMAL SALINE 50ML 50 ML IV SCH ×2 (05:21→12:28)
[2018-01-10 07:00] VITALS: BP 125/64
[2018-01-10] MEDS: ALLOPURINOL 100 MG TABLET. PO SCH (09:09)
[2018-01-10] MEDS: CETIRIZINE HCL 10 MG TABLET. PO SCH (09:09)
[2018-01-10] MEDS: PSEUDOEPHEDRINE ER 120 MG TABLET.ER. PO SCH (09:09)
[2018-01-10] MEDS: FUROSEMIDE 40 MG TABLET. PO SCH (09:09)
[2018-01-10] MEDS: LACTOBACILLUS RHAMNOSUS GG 1 CAPSULE. PO SCH (09:09)
[2018-01-10] MEDS: ASPIRIN ENTERIC COATED 81 MG TABLET.DR. PO SCH (09:09)
[2018-01-10] MEDS: CITALOPRAM 20 MG TABLET. PO SCH (09:09)
--- NOTE | 2018-01-10 09:55 | PDOC ---
Infectious Disease Note Subjective Subjective pt is feeling better ROS ROS no n/v/d/sob Vital Sign Vital Signs Vital Signs Date Time Temp Pulse Resp B/P (MAP) Pulse Ox O2 Delivery O2 Flow Rate FiO2 01/10/18 09:13 Room Air 01/10/18 07:00 97.5 79 16 125/64 (84) 92 97.5 01/09/18 07:15 2.0 Physical Exam PHYSICAL EXAM GENERAL: Alert and oriented female, not in distress. VITAL SIGNS: Stable, HEENT: NAD. NECK: Supple, no JVP, no lymphadenopathy. LUNGS: Clear. HEART: S1, S2 regular. ABDOMEN: Benign. EXTREMITIES: Left lower extremity has chronic stasis dermatitis present. Right lower extremity has chronic stasis dermatitis on top of that what appears to be acute cellulitis with redness and warmth to it and much more than her usual redness. NEUROLOGIC: The patient is neurologically intact. Labs Micro URINE CULTURE Final Final report URINE CULTURE RES 1 Final Citrobacter freundii Greater than 100,000 colony forming units per mL ANTIMICROBIAL SUSCEPTIBILITY Final Comment S = Susceptible; I = Intermediate; R = Resistant P = Positive; N = Negative MICS are expressed in micrograms per mL Antibiotic RSLT#1 RSLT#2 RSLT#3 RSLT#4 Amoxicillin/Clavulanic Acid R>=32 Cefazolin R>=64 Cefepime I =4 Ceftriaxone R>=64 Cefuroxime R>=64 Ciprofloxacin S<=0.25 Ertapenem S<=0.12 Gentamicin S<=1 Imipenem S<=0.25 Levofloxacin S<=0.12 Meropenem S<=0.25 Nitrofurantoin S<=16 Tetracycline S<=1 Tobramycin S<=1 Trimethoprim/Sulfa S<=20 Performed at: DA - [facility] [address] [facility] [address], [place], [place] [id number] Human Anatomy Teacher: ORLY Crespo MD, Phone: [phone] Objective Assessment Fever and chills Leukocytosis UTI with sepsis Rt leg cellulitis Chronic stasis dermatitis Renal insufficiency Plan Plan of Care change antibiotics to po cipro leg elevation supportive care d/c home ok from ID stand point EDUARDO RIZVI MD Jan 10, 2018 09:55
--- NOTE | 2018-01-10 10:24 | PDOC ---
SUBJECTIVE ROS No new concerns OBJECTIVE Vital Signs Vital Signs Date Time Temp Pulse Resp B/P (MAP) Pulse Ox O2 Delivery O2 Flow Rate FiO2 01/10/18 09:13 Room Air 01/10/18 07:00 97.5 79 16 125/64 (84) 92 97.5 01/09/18 07:15 2.0 I & 0 Intake and Output 01/10/18 07:00 Intake Total 1080 ml Balance 1080 ml Intake Oral 880 ml IV Total 200 ml # Voids 1 PHYSICAL EXAM Physical Exam GENERAL: not in distress. HEENT: NAD. NECK: Supple, no JVP, no lymphadenopathy. LUNGS: Clear. HEART: S1, S2 regular. ABDOMEN: Benign. EXTREMITIES: LLE chronic stasis dermatitis +. Right LE chronic stasis dermatitis NEUROLOGIC: AxO x 3 No CVA or SP tenderness, No marcano Skin No rash DIAGNOSIS/ASSESSMENT Assessment & Plan CKD stage 3 - Stable renal function, E-Lytes, acid base stable Baseline same at least since [address] Nation Fever with chills/ Leukocytosis. Urinary tract infection with sepsis ID following Right leg cellulitis- On Abx Follow up in our office post discharge - 2-3 months Problems: COMMENT/RELEVANT DATA Meds Current Medications Medications (Trade) Dose Ordered Sig/Dimple Start Time Stop Time Status Last Admin Dose Admin Acetaminophen (Tylenol) 650 mg PRN Q4HRS PRN 01/07/18 00:00 01/07/18 23:59 DC 01/07/18 05:52 650 MG Allopurinol (Zyloprim) 100 mg DAILY 01/07/18 15:00 01/10/18 09:09 100 MG Aspirin (Ecotrin) 81 mg DAILY 01/07/18 15:00 01/10/18 09:09 81 MG Cetirizine HCl (ZyrTEC) 10 mg DAILY 01/08/18 09:00 01/10/18 09:09 10 MG Citalopram Hydrobromide (CeleXA) 40 mg DAILY 01/07/18 15:00 01/10/18 09:09 40 MG Cyanocobalamin (Vitamin B-12) 1,000 mcg 1X ONCE 01/09/18 11:30 01/09/18 11:31 DC 01/09/18 11:30 1,000 MCG Furosemide (Lasix) 40 mg DAILY 01/07/18 15:00 01/10/18 09:09 40 MG Haloperidol Lactate (Haldol Inj) 1 mg PRN Q6HRS PRN 01/08/18 17:30 Lactobacillus Rhamnosus (Culturelle) 1 cap BID 01/07/18 09:00 01/10/18 09:09 1 CAP Levothyroxine Sodium (Synthroid) 88 mcg DAILY07 01/07/18 15:00 01/10/18 05:21 88 MCG Linezolid (Zyvox) 600 mg BID 01/07/18 14:00 01/09/18 14:17 DC 01/09/18 08:24 600 MG Morphine Sulfate (Morphine Sulfate) 2 mg PRN Q2HR PRN 01/07/18 06:00 01/08/18 06:26 DC 01/07/18 20:25 2 MG Non-Formulary Medication (Cefpodoxime Proxetil ) 500 mg DAILY 01/08/18 09:00 UNV Ondansetron HCl (Zofran) 4 mg PRN Q8HRS PRN 01/07/18 00:00 01/07/18 23:59 DC Oxycodone/ Acetaminophen (Percocet 5/325) 1 tab PRN Q4HRS PRN 01/08/18 06:30 01/10/18 09:13 1 TAB Pantoprazole Sodium (Protonix) 40 mg DAILYAC 01/07/18 15:00 01/09/18 08:25 40 MG Piperacillin Sod/ Tazobactam Sod (Zosyn Per Pharmacy) 1 each PRN DAILY PRN 01/06/18 22:00 Piperacillin Sod/ Tazobactam Sod 2.25 gm/Sodium Chloride 50 ml @ 100 mls/hr Q6HRS 01/07/18 06:00 01/10/18 05:21 100 MLS/HR Piperacillin Sod/ Tazobactam Sod 3.375 gm/Sodium Chloride 50 ml @ 100 mls/hr 1X ONCE 01/06/18 20:15 01/06/18 20:44 DC 01/06/18 20:40 100 MLS/HR Piperacillin Sod/ Tazobactam Sod 4.5 gm/Sodium Chloride 100 ml @ 200 mls/hr Q6HRS 01/07/18 00:00 UNV Pseudoephedrine HCl (Sudafed 12-Hour) 120 mg BID 01/08/18 09:00 01/10/18 09:09 120 MG Simvastatin (Zocor) 80 mg QHS 01/07/18 21:00 01/09/18 20:49 80 MG Sodium Chloride 1,000 ml @ 125 mls/hr 1X ONCE 01/07/18 00:00 01/07/18 07:59 DC 01/07/18 01:10 125 MLS/HR Vancomycin HCl (Vanco Per Pharmacy) 1 each PRN DAILY PRN 01/06/18 20:15 01/07/18 13:25 DC 01/07/18 02:48 1 EACH Vancomycin HCl (Vancomycin Trough Level) 1 each 1X ONCE 01/08/18 21:30 01/08/18 21:30 DC Vancomycin HCl 1.25 gm/Sodium Chloride 250 ml @ 167 mls/hr Q24H 01/07/18 22:00 01/07/18 22:00 DC Vancomycin HCl 2 gm/Sodium Chloride 500 ml @ 250 mls/hr 1X ONCE 01/06/18 20:15 01/06/18 22:14 DC 01/06/18 21:37 250 MLS/HR Results All relevant outside records, renal labs, imaging studies, telemetry/EKG's were reviewed. SHELLIE MURPHY MD Jan 10, 2018 10:24
[2018-01-10 11:59] VITALS: BP 131/69
--- NOTE | 2018-01-10 12:32 | PDOC ---
PROGRESS NOTES Chief Complaint Chief Complaint History of Present Illness History of Present Illness Vitals Vitals Vital Signs Date Time Temp Pulse Resp B/P (MAP) Pulse Ox O2 Delivery O2 Flow Rate FiO2 01/10/18 12:28 Room Air 01/10/18 11:59 96.6 78 16 131/69 (89) 92 96.6 01/09/18 07:15 2.0 Physical Exam Physical Exam GENERAL: Alert and oriented female, not in distress. VITAL SIGNS: Stable, HEENT: NAD. NECK: Supple, no JVP, no lymphadenopathy. LUNGS: Clear. HEART: S1, S2 regular. ABDOMEN: Benign. EXTREMITIES: chronic changes NEUROLOGIC: The patient is neurologically intact. Assessment and Plan Assessmemt and Plan Problems Medical Problems: sepsis, UTI, Leukocytosis Rt leg cellulitis Chronic stasis dermatitis acute on ckd plan: antibiotics per ID disposition follow up pcp see orders pt educated Comment Review of Relevant I have reviewed the following items javan (where applicable) has been applied. Labs Laboratory Tests Test 01/09/18 03:55 White Blood Count 11.4 x10^3/uL (4.0-11.0) Red Blood Count 3.48 x10^6/uL (3.50-5.40) Hemoglobin 10.8 g/dL (12.0-15.5) Hematocrit 32.0 % (36.0-47.0) Mean Corpuscular Volume 92 fL (79-100) Mean Corpuscular Hemoglobin 31 pg (25-35) Mean Corpuscular Hemoglobin Concent 34 g/dL (31-37) Red Cell Distribution Width 15.9 % (11.5-14.5) Platelet Count 188 x10^3/uL (140-400) Neutrophils (%) (Auto) 83 % (31-73) Lymphocytes (%) (Auto) 8 % (24-48) Monocytes (%) (Auto) 7 % (0-9) Eosinophils (%) (Auto) 0 % (0-3) Basophils (%) (Auto) 1 % (0-3) Neutrophils # (Auto) 9.5 x10^3uL (1.8-7.7) Lymphocytes # (Auto) 0.9 x10^3/uL (1.0-4.8) Monocytes # (Auto) 0.8 x10^3/uL (0.0-1.1) Eosinophils # (Auto) 0.0 x10^3/uL (0.0-0.7) Basophils # (Auto) 0.1 x10^3/uL (0.0-0.2) Sodium Level 137 mmol/L (136-145) Potassium Level 3.7 mmol/L (3.5-5.1) Chloride Level 103 mmol/L (98-107) Carbon Dioxide Level 28 mmol/L (21-32) Anion Gap 6 (6-14) Blood Urea Nitrogen 31 mg/dL (7-20) Creatinine 1.5 mg/dL (0.6-1.0) Estimated GFR (Cockcroft-Gault) 32.9 Glucose Level 125 mg/dL (70-99) Calcium Level 8.5 mg/dL (8.5-10.1) Phosphorus Level 3.5 mg/dL (2.6-4.7) Albumin 2.7 g/dL (3.4-5.0) Microbiology 01/07/18 Blood Culture - Preliminary, Resulted NO GROWTH AFTER 3 DAYS 01/06/18 Urine Culture - Final, Complete 01/06/18 Urine Culture Result 1 (SALTY) - Final, Complete 01/06/18 Antimicrobic Susceptibility - Final, Complete Medications Current Medications Sodium Chloride 1,380 ml @ 1,380 mls/hr Q1H IV Last administered on 01/06/18at 20:15; Start 01/06/18 at 20:15; Stop 01/07/18 at 13:24; Status DC Sodium Chloride 500 ml @ 1,000 mls/hr PRN Q30MIN PRN IV SEE COMMENTS; Start at 20:15 Vancomycin HCl (Vanco Per Pharmacy) 1 each PRN DAILY PRN MC SEE COMMENTS Last administered on 01/07/18at 02:48; Start 01/06/18 at 20:15; Stop 01/07/18 at 13:25 ; Status DC Piperacillin Sod/ Tazobactam Sod 4.5 gm/Sodium Chloride 100 ml @ 200 mls/hr Q6HRS IV ; Start 01/07/18 at 00:00; Status UNV Acetaminophen (Tylenol) 1,000 mg 1X ONCE PO Last administered on 01/06/18at 20: 15; Start 01/06/18 at 20:15; Stop 01/06/18 at 20:16; Status DC Vancomycin HCl 2 gm/Sodium Chloride 500 ml @ 250 mls/hr 1X ONCE IV Last administered on 01/06/18at 21:37; Start 01/06/18 at 20:15; Stop 01/06/18 at 22:14 ; Status DC Piperacillin Sod/ Tazobactam Sod 3.375 gm/Sodium Chloride 50 ml @ 100 mls/hr 1X ONCE IV Last administered on 01/06/18at 20:40; Start 01/06/18 at 20:15; Stop 01/06/18 at 20:44; Status DC Piperacillin Sod/ Tazobactam Sod (Zosyn Per Pharmacy) 1 each PRN DAILY PRN MC SEE COMMENTS; Start 01/06/18 at 22:00 Morphine Sulfate (Morphine Sulfate) 5 mg 1X ONCE IV Last administered on at 22:30; Start 01/06/18 at 22:30; Stop 01/06/18 at 22:31; Status DC Ondansetron HCl (Zofran) 4 mg PRN Q8HRS PRN IV NAUSEA/VOMITING 1ST CHOICE; Start 01/07/18 at 00:00; Stop 01/07/18 at 23:59; Status DC Morphine Sulfate (Morphine Sulfate) 4 mg PRN Q2HR PRN IV SEVERE PAIN; Start at 00:00; Stop 01/07/18 at 23:59; Status DC Acetaminophen (Tylenol) 650 mg PRN Q4HRS PRN PO FEVER Last administered on 01/07at 05:52; Start 01/07/18 at 00:00; Stop 01/07/18 at 23:59; Status DC Sodium Chloride 1,000 ml @ 125 mls/hr 1X ONCE IV Last administered on at 01:10; Start 01/07/18 at 00:00; Stop 01/07/18 at 07:59; Status DC Vancomycin HCl 1.25 gm/Sodium Chloride 250 ml @ 167 mls/hr Q24H IV ; Start at 22:00; Stop 01/07/18 at 22:00; Status DC Vancomycin HCl (Vancomycin Trough Level) 1 each 1X ONCE MC ; Start 01/08/18 at 21:30; Stop 01/08/18 at 21:30; Status DC Piperacillin Sod/ Tazobactam Sod 2.25 gm/Sodium Chloride 50 ml @ 100 mls/hr Q6HRS IV Last administered on 01/10/18 12:28; Start 01/07/18 at 06:00 Morphine Sulfate (Morphine Sulfate) 2 mg PRN Q2HR PRN IV PAIN Last administered on 01/07/18 20:25; Start 01/07/18 at 06:00; Stop 01/08/18 at 06:26 ; Status DC Lactobacillus Rhamnosus (Culturelle) 1 cap BID PO Last administered on 09:09; Start 01/07/18 at 09:00 Allopurinol (Zyloprim) 100 mg DAILY PO Last administered on 01/10/18 09:09; Start 01/07/18 at 15:00 Aspirin (Ecotrin) 81 mg DAILY PO Last administered on 01/10/18 09:09; Start at 15:00 Furosemide (Lasix) 40 mg DAILY PO Last administered on 01/10/18 09:09; Start 01/07/18 at 15:00 Levothyroxine Sodium (Synthroid) 88 mcg DAILY07 PO Last administered on 05:21; Start 01/07/18 at 15:00 Pantoprazole Sodium (Protonix) 40 mg DAILYAC PO Last administered on 01/09/18 08:25; Start 01/07/18 at 15:00 Non-Formulary Medication (Cefpodoxime Proxetil ) 500 mg DAILY PO ; Start at 09:00; Status UNV Citalopram Hydrobromide (CeleXA) 40 mg DAILY PO Last administered on 01/10/18 09:09; Start 01/07/18 at 15:00 Cetirizine HCl (ZyrTEC) 10 mg DAILY PO Last administered on 01/10/18 09:09; Start 01/08/18 at 09:00 Simvastatin (Zocor) 80 mg QHS PO Last administered on 01/09/18 20:49; Start at 21:00 Pseudoephedrine HCl (Sudafed 12-Hour) 120 mg BID PO Last administered on 09:09; Start 01/08/18 at 09:00 Linezolid (Zyvox) 600 mg BID PO Last administered on 01/09/18at 08:24; Start at 14:00; Stop 01/09/18 at 14:17; Status DC Oxycodone/ Acetaminophen (Percocet 5/325) 1 tab PRN Q4HRS PRN PO MODERATE PAIN Last administered on 01/10/18at 09:13; Start 01/08/18 at 06:30 Haloperidol Lactate (Haldol Inj) 1 mg PRN Q6HRS PRN IVP AGITATION; Start at 17:30 Cyanocobalamin (Vitamin B-12) 1,000 mcg 1X ONCE IM Last administered on at 11:30; Start 01/09/18 at 11:30; Stop 01/09/18 at 11:31; Status DC Active Scripts Active Reported Cephalexin 500 Mg Capsule 1 Cap PO DAILY Tova-D 24 Hour Tablet (Fexofenadine/Pseudoephedrine) 1 Each Tab.er.24h 1 Tab PO DAILY Levothyroxine Sodium 88 Mcg Tablet 88 Mcg PO DAILY Citalopram Hbr (Citalopram Hydrobromide) 40 Mg Tablet 40 Mg PO DAILY Allopurinol 100 Mg Tablet 100 Mg PO DAILY Pantoprazole Sodium 40 Mg Tablet.dr 40 Mg PO DAILY Aspir-Low (Aspirin) 81 Mg Tablet.dr 1 Tab PO DAILY Simvastatin 80 Mg Tablet 1 Tab PO QHS Furosemide 40 Mg Tablet 1 Tab PO DAILY Vitals/I & O Vital Sign - Last 24 Hours 01/09/18 01/09/18 01/09/18 01/09/18 15:00 19:00 19:39 20:50 Temp 97.7 97.9 97.7 97.9 Pulse 78 87 Resp 18 18 B/P (MAP) 116/67 (83) 109/60 (76) Pulse Ox 98 90 92 O2 Delivery Room Air Room Air Room Air Room Air 01/09/18 01/10/18 01/10/18 01/10/18 23:00 01:20 03:00 07:00 Temp 97.9 97.9 97.5 97.9 97.9 97.5 Pulse 84 80 79 Resp 18 18 16 B/P (MAP) 131/70 (90) 136/76 (96) 125/64 (84) Pulse Ox 90 92 91 92 O2 Delivery Room Air Room Air Room Air Room Air 01/10/18 01/10/18 01/10/18 09:13 11:59 12:28 Temp 96.6 96.6 Pulse 78 Resp 16 B/P (MAP) 131/69 (89) Pulse Ox 92 O2 Delivery Room Air Room Air Room Air Intake and Output 01/09/18 01/09/18 01/10/18 15:00 23:00 07:00 Intake Total 100 ml 400 ml 580 ml Balance 100 ml 400 ml 580 ml SALTY CLEMENTE MD Jan 10, 2018 12:32
--- NOTE | 2018-01-10 12:36 | PDOC3 ---
Discharge Summary Visit Information Final Diagnosis Problems Medical Problems: (1) Bilateral lower leg cellulitis Status: Acute (2) Fever Status: Acute (3) Sepsis Status: Acute (4) Urinary tract infection Status: Acute Brief Hospital Course Allergies Allergies Coded Allergies Type Severity Reaction Last Updated Verified No Known Drug Allergies 03/02/14 No Vital Signs Vital Signs Date Time Temp Pulse Resp B/P (MAP) Pulse Ox O2 Delivery O2 Flow Rate FiO2 01/10/18 12:28 Room Air 01/10/18 11:59 96.6 78 16 131/69 (89) 92 96.6 01/09/18 07:15 2.0 Lab Results Laboratory Tests Test 01/09/18 03:55 White Blood Count 11.4 x10^3/uL (4.0-11.0) Red Blood Count 3.48 x10^6/uL (3.50-5.40) Hemoglobin 10.8 g/dL (12.0-15.5) Hematocrit 32.0 % (36.0-47.0) Mean Corpuscular Volume 92 fL (79-100) Mean Corpuscular Hemoglobin 31 pg (25-35) Mean Corpuscular Hemoglobin Concent 34 g/dL (31-37) Red Cell Distribution Width 15.9 % (11.5-14.5) Platelet Count 188 x10^3/uL (140-400) Neutrophils (%) (Auto) 83 % (31-73) Lymphocytes (%) (Auto) 8 % (24-48) Monocytes (%) (Auto) 7 % (0-9) Eosinophils (%) (Auto) 0 % (0-3) Basophils (%) (Auto) 1 % (0-3) Neutrophils # (Auto) 9.5 x10^3uL (1.8-7.7) Lymphocytes # (Auto) 0.9 x10^3/uL (1.0-4.8) Monocytes # (Auto) 0.8 x10^3/uL (0.0-1.1) Eosinophils # (Auto) 0.0 x10^3/uL (0.0-0.7) Basophils # (Auto) 0.1 x10^3/uL (0.0-0.2) Sodium Level 137 mmol/L (136-145) Potassium Level 3.7 mmol/L (3.5-5.1) Chloride Level 103 mmol/L (98-107) Carbon Dioxide Level 28 mmol/L (21-32) Anion Gap 6 (6-14) Blood Urea Nitrogen 31 mg/dL (7-20) Creatinine 1.5 mg/dL (0.6-1.0) Estimated GFR (Cockcroft-Gault) 32.9 Glucose Level 125 mg/dL (70-99) Calcium Level 8.5 mg/dL (8.5-10.1) Phosphorus Level 3.5 mg/dL (2.6-4.7) Albumin 2.7 g/dL (3.4-5.0) Brief Hospital Course Ms. Campos is a 87 old lady presented for cellulitis, uti, sepsis, given antibiotics, seen by renal ID, improved, able to be discharged home in stable condition with an advice to follow up outpatient discharge time >32 min Discharge Information Condition at Discharge: Improved Follow Up: Weeks Disposition/Orders: D/C to Home Scheduled Allopurinol (Allopurinol) 100 Mg Tablet, 100 MG PO DAILY for gout, (Reported) Entered as Reported by: YONATHAN GARCIA on 10/12/16 2334 Last Action: Continued on 01/07/18 124 by HYUN DOOLEY Aspirin (Aspir-Low) 81 Mg Tablet.dr, 1 TAB PO DAILY for blood thinner, #30 Ref 3 (Reported) Entered as Reported by: TELMA BERMEO on 03/02/14 163 Last Action: Continued on 01/07/18 1243 by HYUN DOOLEY Cephalexin (Cephalexin) 500 Mg Capsule, 1 CAP PO DAILY, (Reported) Entered as Reported by: SHO GONCALVES RPH on 01/07/18 153 Last Action: New Order on 01/07/181536 by SHO GONCALVES RPH Citalopram Hydrobromide (Citalopram Hbr) 40 Mg Tablet, 40 MG PO DAILY, (Reported ) Entered as Reported by: YVON ABDI on 08/11/17249 Last Action: Converted on 01/07/181242 by HYUN DOOLEY Fexofenadine/Pseudoephedrine (Tova-D 24 Hour Tablet) 1 Each Tab.er.24h, 1 TAB PO DAILY, #30 Ref 2 (Reported) Entered as Reported by: YVON ABDI on 08/11/17249 Last Action: Converted on 01/07/183 by HYUN DOOLEY Furosemide (Furosemide) 40 Mg Tablet, 1 TAB PO DAILY for diuretic, #30 Ref 5 ( Reported) Entered as Reported by: TELMA BERMEO on 03/02/14 1637 Last Action: Continued on 01/07/181242 by HYUN DOOLEY Levothyroxine Sodium (Levothyroxine Sodium) 88 Mcg Tablet, 88 MCG PO DAILY, ( Reported) Entered as Reported by: YVON ABDI on 08/11/17 025 Last Action: Continued on 01/07/181242 by HYUN DOLOEY Pantoprazole Sodium (Pantoprazole Sodium) 40 Mg Tablet.dr, 40 MG PO DAILY for GERD, (Reported) Entered as Reported by: YONATHAN GARCIA on 10/12/16 8374 Last Action: Continued on 01/07/181242 by HYUN DOOLEY Simvastatin (Simvastatin) 80 Mg Tablet, 1 TAB PO QHS for lowers cholesterol, # 90 Ref 3 (Reported) Entered as Reported by: TELMA BERMOE on 03/02/14 1637 Last Action: Converted on 01/07/181242 by HYUN DOOLEY Discontinued Medications Cefpodoxime Proxetil (Cefpodoxime Proxetil) 200 Mg Tablet, 500 MG PO DAILY, ( Reported) Discontinued Reason: ENDED Entered as Reported by: MOHAN ALEXANDER on 01/07/18 0058 Last Action: Discontinued on 01/07/18 1331 by SHIREEN CARRERA ANIL K MD Jan 10, 2018 12:36
[2018-01-10 15:00] VITALS: BP 116/60
== END 2018-01-10 17:30 | disposition home health service (06) | DRG 871 ==
LOC: ER 19:14 → 5 NORTH 23:12
PROVIDERS: ADMIT Internal Medicine; ATTEND Internal Medicine
PROC: 02H633Z Insertion of Infusion Device into Right Atrium, Percutaneous Approach (ICD-10-PCS; principal; 2018-01-06)
PROC: B2141ZZ Fluoroscopy of Right Heart using Low Osmolar Contrast (ICD-10-PCS; 2018-01-06)
DX: A41.9 Sepsis, unspecified organism (principal); J96.00 Acute respiratory failure, unspecified whether with hypoxia or hypercapnia; N39.0 Urinary tract infection, site not specified; L03.116 Cellulitis of left lower limb; L03.115 Cellulitis of right lower limb; N18.4 Chronic kidney disease, stage 4 (severe); I87.2 Venous insufficiency (chronic) (peripheral); M10.9 Gout, unspecified; K21.9 Gastro-esophageal reflux disease without esophagitis; E78.00 Pure hypercholesterolemia, unspecified; E03.9 Hypothyroidism, unspecified; E78.5 Hyperlipidemia, unspecified; I12.9 Hypertensive chronic kidney disease with stage 1 through stage 4 chronic kidney disease, or unspecified chronic kidney disease; E66.9 Obesity, unspecified; Z68.39 Body mass index [BMI] 39.0-39.9, adult; Z90.722 Acquired absence of ovaries, bilateral; Z90.49 Acquired absence of other specified parts of digestive tract; Z85.41 Personal history of malignant neoplasm of cervix uteri; Z90.710 Acquired absence of both cervix and uterus; Z90.5 Acquired absence of kidney; Z82.49 Family history of ischemic heart disease and other diseases of the circulatory system
CPT/HCPCS: 36415; 36569; 71045; 73600; 73630; 80048; 80053; 80069; 81001; 83605; 83690; 84145; 85007; 85025; 87040; 87086; 87186; 87804; 93925; J2270; J2543; J3370; J3420; J7030; J7040; 97116; 97530; 97535; 99285-25

== ENCOUNTER 2019-12-23 08:21 | Emergency (ER) | payer MEDICARE ==
[~2019-12-23] VITALS: Ht 162.6 cm; Wt 81.8 kg
[~2019-12-23 08:21] MED LIST changes: +CEFP200T PO; +CEPH500C PO; +LACT1CAP19 PO; -PANT40TA3 PO; -PANT40TA5 PO; +PANT40TA77 PO; +SIMV80TA17 PO; -SIMV80TA7 PO; +TICA90TA PO
[2019-12-23] MEDS ORDERED: HYDROmorphone 2 MG/ML VIAL IM ONE (08:30)
--- NOTE | 2019-12-23 08:42 | PHYS DOC ---
Past Medical History Past Medical History: Cancer, CHF Additional Past Medical Histor: lymphEDEMA BLE, CERVIX CA,GOUT, CELLULITIS; aortic stenosis; cervical ca Past Surgical History: Appendectomy, Cancer Surgery, Hysterectomy, Other Additional Past Surgical Histo: LESION ON HER RIGHT LEG REMOVED. cardiac stent; R nephrectomy Smoking Status: Never Smoker Alcohol Use: None Drug Use: None General Adult EDM: Chief Complaint: MECHANICAL FALL HPI: HPI: The history was obtained from the patient. Patient is a 89-year-old female with PMH history of cervical cancer, chronic lymphedema lower extremities, hypertension who presents with a chief complaint of right wrist pain status post non-syncopal fall. Patient states approximate 2 hours prior to arrival she slipped in the kitchen. She states she slipped on food on the ground. States he fell backwards and tried to catch herself with her right hand. She denies any head or loss of consciousness. She did note immediate pain and swelling to the right wrist. She states that she is right-handed. She states she was able to get herself up and has been ambulatory since the fall. Upon EMS arrival she was sitting in her chair at home. She does not take any blood thinners. She states that the swelling in her legs is stable. She denies any back pain, chest pain, or shortness of breath. She denies any symptoms leading up to her falling and states that she slipped on a slick surface. GCS on initial evaluation: E: 4 V: 5 M: 6 Review of Systems: Review of Systems: Constitutional: Denies fever or chills. [] Eyes: Denies change in visual acuity. [] HENT: Denies nasal congestion or sore throat. [] Respiratory: Denies cough or shortness of breath. [] Cardiovascular: Denies chest pain or edema. [] GI: Denies abdominal pain, nausea, vomiting, bloody stools or diarrhea. [] : Denies dysuria. [] Musculoskeletal: Positive for arthralgias and fall Integument: Denies rash. [] Neurologic: Denies headache, focal weakness or sensory changes. [] Endocrine: Denies polyuria or polydipsia. [] Lymphatic: Denies swollen glands. [] Psychiatric: Denies depression or anxiety. [] Heart Score: Risk Factors: Risk Factors: DM, Current or recent (<one month) smoker, HTN, HLP, family history of CAD, obesity. Risk Scores: Score 0 - 3: 2.5% MACE over next 6 weeks - Discharge Home Score 4 - 6: 20.3% MACE over next 6 weeks - Admit for Clinical Observation Score 7 - 10: 72.7% MACE over next 6 weeks - Early Invasive Strategies Current Medications: Current Medications Medications (Trade) Dose Ordered Sig/Dimple Start Time Stop Time Status Last Admin Dose Admin Hydromorphone HCl (Dilaudid) 0.5 mg 1X ONCE 12/23/19 08:30 12/23/19 08:31 DC Allergies: Allergies: Allergies Coded Allergies Type Severity Reaction Last Updated Verified No Known Drug Allergies 03/02/14 No Physical Exam: PE: Constitutional: Well developed, well nourished, no acute distress, non-toxic appearance. [] HENT: Normocephalic, atraumatic, bilateral external ears normal, oropharynx moist, no oral exudates, nose normal. [] Eyes: PERRLA, EOMI, conjunctiva normal, no discharge. [] Neck: Normal range of motion, no tenderness, supple, no stridor. [] Cardiovascular:Heart rate regular rhythm, no murmur [] Lungs & Thorax: Bilateral breath sounds clear to auscultation [] Abdomen: soft, no tenderness, no masses, no pulsatile masses. [] Skin: Warm, dry, no erythema, no rash. [] Back: No tenderness, no CVA tenderness. [] Extremities: R HAND/WRIST: Tenderness to palpation present at the dorsal aspect of the right wrist. Associated swelling and ecchymosis noted. Anatomic sn uffbox without tenderness to palpation. Joints exhibit minimal range of motion without ligamentous laxity or instability. All tendons tested actively and against resistance without laxity. Subungual hematomas and nail injuries are absent. Radial pulse is present; +2/4. Capillary refill is less than 2 seconds. Sensation is intact in the median, ulnar and radial nerve distribution s. Strength is intact in the median, ulnar and radial nerve distributions. Cyanosis, erythema, and pallor are absent. Neurologic: Alert and oriented X 3, normal motor function, normal sensory function, no focal deficits noted. [] Psychologic: Affect normal, judgement normal, mood normal. [] EKG: EKG: [] Radiology/Procedures: Radiology/Procedures: PROCEDURE: Splint application & evaluation Because of the condition described above in the chart, I decided it would be best for the patient's injury to be immobilized. A short volar splint was placed on the right wrist by the medic, using Ortho-Glass to splint, under my supervision. After application, I evaluated the extremity and deemed it to be satisfactorily immobilized. In addition, patient's distal neurological and vascular examination was unchanged, and without [][facility] [address] [place], [place] [id number] IMAGING REPORT Signed PATIENT: NICKIE STAFFORD ACCOUNT: [id number] : 1930 LOCATION: ER AGE: 89 SEX: F EXAM STATUS: PRE ER ORD. PHYSICIAN: KOKO CASSIDY DO REASON: r wrist pain s/p fall PROCEDURE: WRIST 3V RIGHT Study: 1. CR WRIST 3V RIGHT 2. CR ELBOW RIGHT 3V Indication: Wrist and elbow pain after a fall. Comparison: None. Findings: Elbow: No elbow joint effusion. Alignment is maintained. No displaced fracture. Chronic changes to include enthesophyte formation at the common extensor origin and minimal spurring at the olecranon process. Wrist: Acute, comminuted distal radius fracture with a horizontal component through the metaphysis resulting in mild impaction and volar apex angulation. A longitudinal component extends along the ulnar margin of the distal radius with radiocarpal intra-articular extension as best appreciated on the oblique view. Mild fracture fragment displacement. The base of the ulnar styloid process appears irregular on the PA view but this is less conspicuous on the oblique view. Osteopenia. Severe thumb CMC arthrosis. Less pronounced arthrosis at the triscaphe joint. No widening across the scapholunate interval. Incompletely assessed degenerative changes of the hand particularly at the interphalangeal joints. Expected soft tissue sequela of trauma at the distal forearm to the wrist Impression: Elbow: 1. No acute fracture or traumatic malalignment. Wrist: 1. Mildly comminuted distal radius fracture, as detailed above, with intra-articular extension through the radiocarpal articulation, mild fracture fragment displacement and minimal volar apex angulation. No definite ulnar styloid process fracture, carpal bone fracture or acute abnormality of the visualized hand, but recommend attention on follow-up. 2. Severe thumb CMC arthrosis and partially assessed severe arthrosis at a few interphalangeal joints. Osteopenia. Electronically signed by: JOHN CONLEY MD (12/23/2019 9:04 AM) [id number] DICTATED and SIGNED BY: JOHN CONLEY MD DATE: 12/23/19 0904 Course & Med Decision Making: Course & Med Decision Making Pertinent Labs and Imaging studies reviewed. (See chart for details) Patient is a an 89-year-old female who presents with a non-syncopal fall approximately 3 hours prior to arrival. She denies any other pain outside of her right wrist. X-ray does confirm a mildly angulated, impacted distal radius fracture. Patient is neurovascular intact on examination. +5 of 5 supply requirements officer strength. I did discuss the imaging findings with security delivery specialist Dr. Ghosh. He did not recommend reduction in the emergency department. Per his recommendations the patient will be placed in a volar splint. She will follow- up in his clinic for potential future operative planning. Patient's pain was well controlled in the emergency department. She does have friends and family who live nearby who can help her with activities of daily living. Post splint neurovascular exam remains normal. Patient will be discharged home with analgesia. Return precautions discussed and understood. Patient is agreeable to this plan. Stable for discharge home. Dragon Disclaimer: Blank Disclaimer: This electronic medical record was generated, in whole or in part, using a voice recognition dictation system. Departure Departure Impression: Primary Impression: Distal radius fracture, right Qualified Codes: S52.501A - Unspecified fracture of the lower end of right radius, initial encounter for closed fracture Additional Impression: Fall Qualified Codes: W19.XXXA - Unspecified fall, initial encounter Disposition: HOME, SELF-CARE Condition: GOOD Referrals: ADRIANA ROSARIO MD (PCP) ADDIE GHOSH MD Patient Instructions: Wrist Fracture Additional Instructions: Please call orthopedic surgeon referral today to schedule appointment in the near future for wrist fracture management. Scripts Hydrocodone/Apap 5-325 (NORCO 5-325 TABLET) 1 Each Tablet 1-2 EACH PO PRN Q6HRS PRN for PAIN, #10 as needed for pain Prov: KOKO CASSIDY DO 12/23/19 Ibuprofen (IBUPROFEN) 600 Mg Tablet 600 MG PO PRN Q6HRS PRN for PAIN, #20 TAB take with food or milk Prov: KOKO CASSIDY DO 12/23/19 Justicifation of Admission Dx: Justifications for Admission: Justification of Admission Dx: N/A KOKO CASSIDY DO Dec 23, 2019 08:42
--- NOTE | 2019-12-23 09:07 | RAD ---
Study: 1. CR WRIST 3V RIGHT 2. CR ELBOW RIGHT 3V Indication: Wrist and elbow pain after a fall. Comparison: None. Findings: Elbow: No elbow joint effusion. Alignment is maintained. No displaced fracture. Chronic changes to include enthesophyte formation at the common extensor origin and minimal spurring at the olecranon process. Wrist: Acute, comminuted distal radius fracture with a horizontal component through the metaphysis resulting in mild impaction and volar apex angulation. A longitudinal component extends along the ulnar margin of the distal radius with radiocarpal intra-articular extension as best appreciated on the oblique view. Mild fracture fragment displacement. The base of the ulnar styloid process appears irregular on the PA view but this is less conspicuous on the oblique view. Osteopenia. Severe thumb CMC arthrosis. Less pronounced arthrosis at the triscaphe joint. No widening across the scapholunate interval. Incompletely assessed degenerative changes of the hand particularly at the interphalangeal joints. Expected soft tissue sequela of trauma at the distal forearm to the wrist Impression: Elbow: 1. No acute fracture or traumatic malalignment. Wrist: 1. Mildly comminuted distal radius fracture, as detailed above, with intra-articular extension through the radiocarpal articulation, mild fracture fragment displacement and minimal volar apex angulation. No definite ulnar styloid process fracture, carpal bone fracture or acute abnormality of the visualized hand, but recommend attention on follow-up. 2. Severe thumb CMC arthrosis and partially assessed severe arthrosis at a few interphalangeal joints. Osteopenia. Electronically signed by: JOHN CONLEY MD (12/23/2019 9:04 AM) [id number]
[2019-12-23] MEDS ORDERED: HYDROcodone/APAP 5/325MG 1 TAB TABLET PO ONE (09:45)
[2019-12-23] MEDS ORDERED: HYDR-3164 PO (09:57)
[2019-12-23] MEDS ORDERED: IBUP-1007 PO (09:57)
[2019-12-23 12:00] VITALS: BP 139/61
== END 2019-12-23 12:08 | disposition home or self-care (01) ==
LOC: ER 08:21
DX: S52.591A Other fractures of lower end of right radius, initial encounter for closed fracture (principal); M25.531 Pain in right wrist; R60.0 Localized edema; I50.9 Heart failure, unspecified; Z85.41 Personal history of malignant neoplasm of cervix uteri; Z90.89 Acquired absence of other organs; Z90.710 Acquired absence of both cervix and uterus; Z98.890 Other specified postprocedural states; W01.0XXA Fall on same level from slipping, tripping and stumbling without subsequent striking against object, initial encounter; Y93.89 Activity, other specified; Y92.090 Kitchen in other non-institutional residence as the place of occurrence of the external cause; Y99.8 Other external cause status
CPT/HCPCS: 29125; 73080; 73110; 96372; 99285; J1170

== ENCOUNTER 2019-12-25 15:01 | Emergency (ER) | payer MEDICARE ==
[~2019-12-25] VITALS: Ht 152.4 cm; Wt 86.8 kg
[2019-12-25 15:01] VITALS: BP 173/73
[~2019-12-25 15:01] MED LIST changes: +HYDR-3164 PO; +IBUP-1007 PO
--- NOTE | 2019-12-25 16:01 | PHYS DOC ---
Past Medical History Past Medical History: Cancer, CHF, High Cholesterol, Hypertension, [place] Additional Past Medical Histor: lymphEDEMA BLE, CERVIX CA,GOUT, CELLULITIS; aortic stenosis; cervical ca Past Surgical History: Appendectomy, Cancer Surgery, Hysterectomy, Other Additional Past Surgical Histo: LESION ON HER RIGHT LEG REMOVED. cardiac stent; R nephrectomy Smoking Status: Never Smoker Alcohol Use: None Drug Use: None General Adult EDM: Chief Complaint: PAIN CONTROL HPI: HPI: 89-year-old female presents emergency department after being seen yesterday and splinted after sustaining a right wrist fracture. She has noticed worsening pain with discoloration of her fingers. She took [place] without improvement. Her pain is a throbbing aching pain radiating from the wrist into the fingers. Review of systems negative for chest pain shortness of breath vomiting fevers chills. All other review of systems negative. ED course: 89-year-old female presenting the emergency department today with worsening pain in her right wrist after being splinted for a radial fracture. On arrival the patient's splint was undone. It was tight and causing some discoloration in her fingers with swelling of the fingers. 2-second cap refill. She has some swelling of the wrist. After taking the splint off she feels much improvement from her symptoms. she demonstrates the ability to make an A-OK, cross fingers and give a thumbs up. I ordered an x-ray to be repeated. X-ray shows fracture without any major changes. Patient's fingers are less discolored on reexamination and she is feeling much better. We will re-splint the fracture and refer her to orthopedic surgery. Heart Score: Risk Factors: Risk Factors: DM, Current or recent (<one month) smoker, HTN, HLP, family history of CAD, obesity. Risk Scores: Score 0 - 3: 2.5% MACE over next 6 weeks - Discharge Home Score 4 - 6: 20.3% MACE over next 6 weeks - Admit for Clinical Observation Score 7 - 10: 72.7% MACE over next 6 weeks - Early Invasive Strategies Allergies: Allergies: Allergies Coded Allergies Type Severity Reaction Last Updated Verified No Known Drug Allergies 03/02/14 No Physical Exam: PE: Constitutional: Well developed, well nourished, no acute distress, non-toxic appearance. [] HENT: Normocephalic, atraumatic, bilateral external ears normal, oropharynx moist, no oral exudates, nose normal. [] Eyes: PERRLA, EOMI, conjunctiva normal, no discharge. [] Neck: Normal range of motion, no tenderness, supple, no stridor. [] Cardiovascular:Heart rate regular rhythm, no murmur [] Lungs & Thorax: Bilateral breath sounds clear to auscultation [] Abdomen: Bowel sounds normal, soft, no tenderness, no masses, no pulsatile masses. [] Skin: Warm, dry, no erythema, no rash. [] Back: No tenderness, no CVA tenderness. [] Extremities: Right upper extremity examination: As above. Neurologic: Alert and oriented X 3, normal motor function, normal sensory function, no focal deficits noted. [] Psychologic: Affect normal, judgement normal, mood normal. [] Current Patient Data: Vital Signs: Vital Signs Date Time Temp Pulse Resp B/P (MAP) Pulse Ox O2 Delivery O2 Flow Rate FiO2 12/25/19 15:01 98.3 76 20 173/73 (106) 98 Room Air 98.3 EKG: EKG: [] Radiology/Procedures: Radiology/Procedures: [] Course & Med Decision Making: Course & Med Decision Making Pertinent Labs and Imaging studies reviewed. (See chart for details) [] Dragon Disclaimer: Dragon Disclaimer: This electronic medical record was generated, in whole or in part, using a voice recognition dictation system. Departure Departure Impression: Primary Impression: Distal radius fracture, right Additional Impression: Wrist pain Disposition: HOME, SELF-CARE Condition: STABLE Referrals: ADRIANA ROSARIO MD (PCP) ADDIE PINA MD 1-2 days Patient Instructions: Wrist Fracture Justicifation of Admission Dx: Justifications for Admission: Justification of Admission Dx: N/A JEZ ROMERO MD Dec 25, 2019 16:01
--- NOTE | 2019-12-25 16:12 | RAD ---
Three-view right wrist study Clinical indications: Right wrist pain COMPARISON: December 23, 2019. FINDINGS:: Again seen is comminuted fracture of the distal right radius which has been reduced and immobilized in a cast. Radial carpal articulation is maintained. No lytic process is seen. 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 IMPRESSION: Immobilization of distal right radial fracture. Electronically signed by: Ady Beck MD (12/25/2019 4:09 PM) [id number]
== END 2019-12-25 16:41 | disposition home or self-care (01) ==
LOC: ER 15:01
DX: S52.501A Unspecified fracture of the lower end of right radius, initial encounter for closed fracture (principal); I11.0 Hypertensive heart disease with heart failure; I50.9 Heart failure, unspecified; E78.00 Pure hypercholesterolemia, unspecified; I25.2 Old myocardial infarction; Z95.5 Presence of coronary angioplasty implant and graft; M10.9 Gout, unspecified; W18.39XA Other fall on same level, initial encounter; Y93.89 Activity, other specified; Y92.89 Other specified places as the place of occurrence of the external cause; Y99.8 Other external cause status
CPT/HCPCS: 29125; 73110; 99284

== ENCOUNTER 2019-12-26 12:18 | Inpatient (IN) | payer MEDICARE ==
[~2019-12-26] VITALS: Ht 152.4 cm; Wt 80.8 kg
--- NOTE | 2019-12-26 12:20 | PHYS DOC ---
Past Medical History Past Medical History: Cancer, CHF, High Cholesterol, Hypertension, [place] Additional Past Medical Histor: lymphEDEMA BLE, CERVIX CA,GOUT, CELLULITIS; aortic stenosis; cervical ca Past Surgical History: Appendectomy, Cancer Surgery, Hysterectomy, Other Additional Past Surgical Histo: LESION ON HER RIGHT LEG REMOVED. cardiac stent; R nephrectomy Smoking Status: Never Smoker Alcohol Use: None Drug Use: None General Adult EDM: Chief Complaint: LEFT WRIST PAIN HPI: HPI: Patient is a 89 year old female who presents with evaluation for a mechanical fall resulting in a left wrist injury. Patient was here 3 days ago for a fall and a right wrist fracture. Patient has a splint on that wrist. Patient denies any dizziness, chest pain and states her legs went out on her which is not uncommon for her and she fell and landed on her left wrist. Patient describes moderate pain that radiates up to the left forearm that is worse with palpation and movement. Patient denies any focal numbness. Patient does have some limited range of motion in the wrist due to pain. Patient denies hitting her head or having loss of consciousness. Review of Systems: Review of Systems: Constitutional: Denies fever or chills. [] Eyes: Denies change in visual acuity. [] HENT: Denies nasal congestion or sore throat. [] Respiratory: Denies cough or shortness of breath. [] Cardiovascular: Denies chest pain or edema. [] GI: Denies abdominal pain, nausea, vomiting, bloody stools or diarrhea. [] : Denies dysuria. [] Musculoskeletal: Denies back pain but complains of left wrist pain Integument: Denies rash. [] Neurologic: Denies headache, focal weakness or sensory changes. [] Endocrine: Denies polyuria or polydipsia. [] Lymphatic: Denies swollen glands. [] Psychiatric: Denies depression or anxiety. [] Heart Score: Risk Factors: Risk Factors: DM, Current or recent (<one month) smoker, HTN, HLP, family history of CAD, obesity. Risk Scores: Score 0 - 3: 2.5% MACE over next 6 weeks - Discharge Home Score 4 - 6: 20.3% MACE over next 6 weeks - Admit for Clinical Observation Score 7 - 10: 72.7% MACE over next 6 weeks - Early Invasive Strategies Allergies: Allergies: Allergies Coded Allergies Type Severity Reaction Last Updated Verified No Known Drug Allergies 10/14/14 No Physical Exam: PE: Constitutional: Well developed, well nourished, no acute distress, non-toxic appearance. [] HENT: Normocephalic, atraumatic, bilateral external ears normal, no trismus nose normal. [] Eyes: PERRLA, EOMI, conjunctiva normal, no discharge. [] Neck: Normal range of motion, no tenderness, supple, no stridor. [] Cardiovascular:Heart rate regular rhythm, no murmur [] Lungs & Thorax: Bilateral breath sounds clear, no respiratory distress Abdomen:, soft, no tenderness, no masses, no pulsatile masses. [] Skin: Warm, dry, no erythema, no rash. [] Back: No tenderness, no CVA tenderness. [] Extremities: No tenderness, no cyanosis, no clubbing, ROM intact, 3+ bilateral lower extremity edema. Right wrist is splinted. Left wrist has some tenderness with mild swelling. Neurovascular intact distally. Neurologic: Alert and oriented X 3, normal motor function, normal sensory function, no focal deficits noted. [] Psychologic: Affect normal, judgement normal, mood normal. [] Current Patient Data: Vital Signs: Vital Signs Date Time Temp Pulse Resp B/P (MAP) Pulse Ox O2 Delivery O2 Flow Rate FiO2 12/26/19 12:18 98.1 77 18 147/74 (98) 100 Room Air 98.1 EKG: EKG: [] Radiology/Procedures: Radiology/Procedures: [] [address] [place] [address] IMAGING REPORT Signed PATIENT: NICKIE STAFFORD ACCOUNT: [id number] : 1930 LOCATION: ER AGE: 89 SEX: F EXAM STATUS: PRE ER ORD. PHYSICIAN: GLADIS LUNDBERG MD REASON: FALL, lt wrist pain PROCEDURE: WRIST 3V LEFT 2 views left forearm and 3 views left wrist dated 12/26/2019. No comparison available. Clinical indication: Fall. Left wrist pain. FINDINGS: 3 views of left wrist show normal bony alignment. No displaced fracture. Moderate to severe degenerative change of the first carpometacarpal joint and scaphotrapezial joint. Mild degenerative change of the radiocarpal joint. 2 views of left forearm show normal bony alignment. No displaced fracture. The radial and ulnar shafts are intact. IMPRESSION: 1. No acute radiographic abnormality. 2. Degenerative changes as described. Electronically signed by: Erasmo Taylor MD (12/26/2019 1:10 PM) [id number] DICTATED and SIGNED BY: ERASMO TAYLOR MD DATE: 12/26/19 1317 Course & Med Decision Making: Course & Med Decision Making Pertinent Labs and Imaging studies reviewed. (See chart for details) [] 89-year-old female with mechanical fall. Patient has a prior right wrist fracture. X-ray is negative the left wrist. Patient has no significant snuffbox tenderness. Patient was placed in [place]reed[place] wrap. Patient will need to follow-up with orthopedist for her prior right wrist fracture. Patient takes Ultram for pain and will be given one here in the ER. Dragon Disclaimer: Dragalbert Disclaimer: This electronic medical record was generated, in whole or in part, using a voice recognition dictation system. Departure Departure Impression: Primary Impression: Left wrist sprain Disposition: HOME, SELF-CARE Condition: STABLE Referrals: ADRIANA ROSARIO MD (PCP) ADDIE PINA MD 3 DAYS Patient Instructions: Wrist Sprain with [facility] Additional Instructions: EMERGENCY DEPARTMENT GENERAL DISCHARGE INSTRUCTIONS THANK YOU for coming to [facility] Emergency Department (ED) today and trusting us with your care. We trust that you had a positive experience in our Emergency Department. If you wish to speak to the department Management you can contact the making department preparer at . YOUR FOLLOW UP INSTRUCTIONS ARE FOLLOWS: Do you have a private doctor? If you do not have a private doctor, please ask for a resource list of physicians or clinics that may be able to assist you with follow up care. The Emergency Physician has interpreted your x-rays. The X-ray specialist will also review them. If there is a change in the findings you will be notified in 48 hours when at all possible. A lab test or lab culture may have been done, your results will be reviewed and you will be notified if you need a change in treatment. ADDITIONAL INSTRUCTIONS AND INFORMATION Your care today has been supervised by a physician who is specially trained in emergency care. Many problems require more than one evaluation for a complete diagnosis a nd treatment. We recommend that you schedule your follow up appointment as recommended to ensure complete treatment of your illness or injury. If you are unable to obtain follow up care and continue to have a problem, or if your condition worsens we recommend that you return to the ED. We are not able to safely determine your condition over the phone nor are we able to give sound medical advice over the phone. For these safety reasons, if you call for medical advice we will ask you to come to the ED for further evaluation If you have any questions regarding these discharge instructions please call the ED at . SAFETY INFORMATION In the interest of safety, wellness, and injury prevention; we encourage you to wear your seatbelt, if you smoke; quit smoking, and we encourage your family to use protective helmet for bicycling and other sporting events that present an increased risk for head injury. IF YOUR SYMPTOMS WORSEN OR NEW SYMPTOMS DEVELOP, OR YOU HAVE CONCERNS ABOUT YOUR CONDITION; OR IF YOUR CONDITION WORSENS WHILE YOU ARE WAITING FOR YOUR FOLLOW UP APPOINTMENT; EITHER CONTACT YOUR PRIMARY CARE DOCTOR, THE PHYSICIAN WHOSE NAME AND NUMBER YOU WERE GIVEN, OR RETURN TO THE ED IMMEDIATELY. Justicifation of Admission Dx: Justifications for Admission: Justification of Admission Dx: N/A GLADIS LUNDBERG MD Dec 26, 2019 12:20
--- NOTE | 2019-12-26 13:13 | RAD ---
2 views left forearm and 3 views left wrist dated 12/26/2019. No comparison available. Clinical indication: Fall. Left wrist pain. FINDINGS: 3 views of left wrist show normal bony alignment. No displaced fracture. Moderate to severe degenerative change of the first carpometacarpal joint and scaphotrapezial joint. Mild degenerative change of the radiocarpal joint. 2 views of left forearm show normal bony alignment. No displaced fracture. The radial and ulnar shafts are intact. IMPRESSION: 1. No acute radiographic abnormality. 2. Degenerative changes as described. Electronically signed by: Erasmo Taylor MD (12/26/2019 1:10 PM) [id number]
[2019-12-26] MEDS ORDERED: traMADol 50 MG TABLET PO ONE (13:30)
[2019-12-26] MEDS ORDERED: ONDANSETRON PF 4 MG/2 ML VIAL. IV PRN ×2 (16:45→20:15)
[2019-12-26 18:06] LABS: BASO # 0.1 x10^3/uL (0.0-0.2); BASO % 1 % (0-3); EOS # 0.2 x10^3/uL (0.0-0.7); EOS % 3 % (0-3); HEMATOCRIT 33.8 % (36.0-47.0); HEMOGLOBIN 11.2 g/dL (12.0-15.5); LYMPH # 1.3 x10^3/uL (1.0-4.8); LYMPH % 20 % (24-48); MEAN CORPUSCULAR HEMOGLOBIN 30 pg (25-35); MEAN CORPUSCULAR HGB CONC 33 g/dL (31-37); MEAN CORPUSCULAR VOLUME 89 fL (79-100); MONO # 0.5 x10^3/uL (0.0-1.1); MONO % 8 % (0-9); NEUT # 4.6 x10^3/uL (1.8-7.7); NEUT % 69 % (31-73); PLATELET COUNT 222 x10^3/uL (140-400); RED BLOOD COUNT 3.79 x10^6/uL (3.50-5.40); RED CELL DISTRIBUTION WIDTH 17.2 % (11.5-14.5); WHITE BLOOD COUNT 6.7 x10^3/uL (4.0-11.0)
[2019-12-26 18:14] LABS: CREATININE 1.3 mg/dL (0.6-1.0); GFR 38.7; POTASSIUM 3.9 mmol/L (3.5-5.1)
[2019-12-26 18:19] LABS: ALBUMIN 3.1 g/dL (3.4-5.0); ALBUMIN/GLOBULIN RATIO 0.8 (1.0-1.7); TOTAL BILIRUBIN 0.6 mg/dL (0.2-1.0); TOTAL PROTEIN 7.1 g/dL (6.4-8.2)
[2019-12-26 18:41] VITALS: BP 135/52
[2019-12-26 19:00] VITALS: BP 125/44
--- NOTE | 2019-12-26 19:21 | PDOC1 ---
History and Physical Date of Admission Date of Admission DATE: 12/26/19 TIME: 19:19 Identification/Chief Complaint Chief Complaint Fall Source Source: Patient History of Present Illness History of Present Illness Ms Campos is an 87yo F w/ PMHx CAD s/p BETSEY, Congestive heart failure, Chronic kidney disease s/p right nephrectomy, cervical cancer s/p TAHBSO, and aortic stenosis who presents with increased weakness and frequent falls. She notes a mechanical fall resulting in a left wrist injury. Patient was here 3 days ago for a fall and a right wrist fracture. Patient has a splint on that wrist. Patient denies any dizziness, chest pain and states her legs went out on her which is not uncommon for her and she fell and landed on her left wrist. Patient describes moderate pain that radiates up to the left forearm that is worse with palpation and movement. Patient denies any focal numbness. Patient does have some limited range of motion in the wrist due to pain. Patient denies hitting her head or having loss of consciousness. Cr 1.3, albumin 3.1. Left wrist x-ray with no acute fracture. When discussing her falls and po tential rehab she asks "would you put your mother in a mcc? I do want to be put in the home." She is asking for dinner tells me she has not eaten in 2 days. Admitted for further treatment. Past Medical History Cardiovascular: HTN, Hyperlipidemia Pulmonary: Bronchitis GI: GERD Heme/Onc: Anemia NOS Psych: Anxiety Musculoskeletal: Osteoarthritis Rheumatologic: Gout Infectious disease: Other Renal/: Chronic renal failure Endocrine: Hypothyroidism Past Surgical History Past Surgical History: Hysterectomy Family History Family History: Hypertension Social History Smoke: No ALCOHOL: none Drugs: None Current Problem List Problem List Problems Medical Problems: (1) Left wrist sprain Status: Acute Current Medications Current Medications Current Medications Tramadol HCl (Ultram) 50 mg 1X ONCE PO Last administered on 12/26/19at 13:37; Start 12/26/19 at 13:30; Stop 12/26/19 at 13:31; Status DC Ondansetron HCl (Zofran) 4 mg PRN Q8HRS PRN IV NAUSEA/VOMITING; Start 12/26/19 at 16:45; Stop 12/27/19 at 16:44 Active Scripts Active [place] 5-325 Tablet (Acetaminophen/Hydrocodone Bitart) 1 Each Tablet 1-2 Each PO PRN Q6HRS PRN as needed for pain Ibuprofen 600 Mg Tablet 600 Mg PO PRN Q6HRS PRN take with food or milk Keflex (Cephalexin) 500 Mg Capsule 500 Mg PO QID 7 Days Culturelle (Lactobacillus Rhamnosus Gg) 1 Each Cap.sprink 1 Cap PO BID 7 Days Reported Brilinta (Ticagrelor) 90 Mg Tablet 90 Mg PO BID Tova-D 24 Hour Tablet (Fexofenadine/Pseudoephedrine) 1 Each Tab.er.24h 1 Tab PO DAILY Levothyroxine Sodium 88 Mcg Tablet 88 Mcg PO DAILY Citalopram Hbr (Citalopram Hydrobromide) 40 Mg Tablet 40 Mg PO DAILY Allopurinol 100 Mg Tablet 100 Mg PO DAILY Pantoprazole Sodium (Pantoprazole Sodium) 40 Mg Tablet.dr 40 Mg PO DAILY Aspir-Low (Aspirin) 81 Mg Tablet.dr 1 Tab PO DAILY Simvastatin 80 Mg Tablet 1 Tab PO QHS Furosemide 40 Mg Tablet 1 Tab PO DAILY Allergies Allergies: Coded Allergies: No Known Drug Allergies (Unverified , 03/02/14) ROS General: YES: Fatigue, Malaise; No: Chills, Night Sweats, Appetite, Other PSYCHOLOGICAL ROS: YES: Anxiety, Concentration difficultie, Depression, Disorientation, Irritablity, Memory difficulties, Mood Swings; No: Behavioral Disorder, Decreased libido, Hallucinations, Hostility, Obsessive thoughts, Physical abuse, Sexual abuse, Sleep disturbances, Suicidal ideation, Other Eyes: No Blurry vision, No Decreased vision, No Double vision, No Dry eyes, No Excessive tearing, No Eye Pain, No Itchy Eyes, No Loss of vision, No Photophobia, No Scotomata, No Uses contacts, No Uses glasses, No Other HEENT: No: Heacaches, Visual Changes, Hearing change, Nasal congestion, Nasal discharge, Oral lesions, Sinus pain, Sore Throat, Epistaxis, Sneezing, Snoring, Tinnitus, Vertigo, Vocal changes, Other ALLERGY AND IMMUNOLOGY: No: Hives, Insect Bite Sensitivity, Itchy/Watery Eyes, Nasal Congestion, Post Nasal Drip, Seasonal Allergies, Other Hematological and Lymphatic: No: Bleeding Problems, Blood Clots, Blood Transfusions, Brusing, Night Sweats, Pallor, Swollen Lymph Nodes, Other ENDOCRINE: No: Breast Changes, Galactorrhea, Hair Pattern Changes, Hot Flashes, Malaise/lethargy, Mood Swings, Palpitations, Polydipsia/polyuria, Skin Changes, Temperature Intolerance, Unexpected Weight Changes, Other Breast: No New/Changing Breast Lumps, No Nipple changes, No Nipple discharge, No Other Respiratory: No: Cough, Hemoptysis, Orthopnea, Pleuritic Pain, Shortness of breath, SOB with excertion, Sputum Changes, Stridor, Tachypnea, Wheezing, Other Cardiovascular: No Chest Pain, No Palpitations, No Orthopnea, No Paroxysmal Noc. Dyspnea, No Edema, No Lt Headedness, No Other Gastrointestinal: No Nausea, No Vomiting, No Abdominal Pain, No Diarrhea, No Constipation, No Melena, No Hematochezia, No Other Genitourinary: No Dysuria, No Frequency, No Incontinence, No Hematuria, No Retention, No Discharge, No Urgency, No Pain, No Flank Pain, No Other, No , No , No , No , No , No , No Musculoskeletal: Yes Gait Disturbance, Yes Joint Pain, Yes Joint Swelling, Yes Muscle Pain, Yes Muscular Weakness; No Joint Stiffness, No Pain In:, No Swelling In:, No Other Neurological: Yes Confusion, Yes Gait Disturbance; No Behavorial Changes, No Bowel/Bladder ControlChng, No Dizziness, No Headaches, No Impaired Coord/balance, No Memory Loss, No Numbness/Tingling, No Seizures, No Speech Problems, No Tremors, No Visual Changes, No Weakness, No Other Skin: No Dry Skin, No Eczema, No Hair Changes, No Lumps, No Mole Changes, No Mottling, No Nail Changes, No Pruritus, No Rash, No Skin Lesion Changes, No Other, No Acne Physical Exam General: Alert, Cooperative, mild distress HEENT: Atraumatic, PERRLA, EOMI, Mucous membr. moist/pink Lungs: Clear to auscultation, Normal air movement Heart: S1S2, RRR, no thrills, no rubs, murmurs (3/6 BERNICE) Abdomen: Normal bowel sounds, Soft, No tenderness, No hepatosplenomegaly, No masses Rectal Exam: not examined Extremities: No clubbing, No cyanosis, Normal pulses, Other (Bruising of right hand, splinted wrist. Pain on left wrist movement. Joaquim LE edema) Skin: No rashes, No breakdown, No significant lesion Neuro: Normal speech, Strength at 5/5 X4 ext, Normal tone, Sensation intact, Cranial nerves 3-12 NL, Reflexes 2+ Psych/Mental Status: Other (Paranoid) Vitals Vitals Vital Signs Date Time Temp Pulse Resp B/P (MAP) Pulse Ox O2 Delivery O2 Flow Rate FiO2 12/26/19 18:41 98.4 76 20 135/52 (79) 97 Room Air 98.4 Labs Labs Laboratory Tests Test 12/26/19 17:59 White Blood Count 6.7 x10^3/uL (4.0-11.0) Red Blood Count 3.79 x10^6/uL (3.50-5.40) Hemoglobin 11.2 g/dL (12.0-15.5) Hematocrit 33.8 % (36.0-47.0) Mean Corpuscular Volume 89 fL (79-100) Mean Corpuscular Hemoglobin 30 pg (25-35) Mean Corpuscular Hemoglobin Concent 33 g/dL (31-37) Red Cell Distribution Width 17.2 % (11.5-14.5) Platelet Count 222 x10^3/uL (140-400) Neutrophils (%) (Auto) 69 % (31-73) Lymphocytes (%) (Auto) 20 % (24-48) Monocytes (%) (Auto) 8 % (0-9) Eosinophils (%) (Auto) 3 % (0-3) Basophils (%) (Auto) 1 % (0-3) Neutrophils # (Auto) 4.6 x10^3/uL (1.8-7.7) Lymphocytes # (Auto) 1.3 x10^3/uL (1.0-4.8) Monocytes # (Auto) 0.5 x10^3/uL (0.0-1.1) Eosinophils # (Auto) 0.2 x10^3/uL (0.0-0.7) Basophils # (Auto) 0.1 x10^3/uL (0.0-0.2) Sodium Level 141 mmol/L (136-145) Potassium Level 3.9 mmol/L (3.5-5.1) Chloride Level 104 mmol/L (98-107) Carbon Dioxide Level 30 mmol/L (21-32) Anion Gap 7 (6-14) Blood Urea Nitrogen 24 mg/dL (7-20) Creatinine 1.3 mg/dL (0.6-1.0) Estimated GFR (Cockcroft-Gault) 38.7 BUN/Creatinine Ratio 18 (6-20) Glucose Level 83 mg/dL (70-99) Calcium Level 9.0 mg/dL (8.5-10.1) Total Bilirubin 0.6 mg/dL (0.2-1.0) Aspartate Amino Transf (AST/SGOT) 21 U/L (15-37) Alanine Aminotransferase (ALT/SGPT) 16 U/L (14-59) Alkaline Phosphatase 110 U/L (46-116) Total Protein 7.1 g/dL (6.4-8.2) Albumin 3.1 g/dL (3.4-5.0) Albumin/Globulin Ratio 0.8 (1.0-1.7) Laboratory Tests Test 12/26/19 17:59 White Blood Count 6.7 x10^3/uL (4.0-11.0) Red Blood Count 3.79 x10^6/uL (3.50-5.40) Hemoglobin 11.2 g/dL (12.0-15.5) Hematocrit 33.8 % (36.0-47.0) Mean Corpuscular Volume 89 fL (79-100) Mean Corpuscular Hemoglobin 30 pg (25-35) Mean Corpuscular Hemoglobin Concent 33 g/dL (31-37) Red Cell Distribution Width 17.2 % (11.5-14.5) Platelet Count 222 x10^3/uL (140-400) Neutrophils (%) (Auto) 69 % (31-73) Lymphocytes (%) (Auto) 20 % (24-48) Monocytes (%) (Auto) 8 % (0-9) Eosinophils (%) (Auto) 3 % (0-3) Basophils (%) (Auto) 1 % (0-3) Neutrophils # (Auto) 4.6 x10^3/uL (1.8-7.7) Lymphocytes # (Auto) 1.3 x10^3/uL (1.0-4.8) Monocytes # (Auto) 0.5 x10^3/uL (0.0-1.1) Eosinophils # (Auto) 0.2 x10^3/uL (0.0-0.7) Basophils # (Auto) 0.1 x10^3/uL (0.0-0.2) Sodium Level 141 mmol/L (136-145) Potassium Level 3.9 mmol/L (3.5-5.1) Chloride Level 104 mmol/L (98-107) Carbon Dioxide Level 30 mmol/L (21-32) Anion Gap 7 (6-14) Blood Urea Nitrogen 24 mg/dL (7-20) Creatinine 1.3 mg/dL (0.6-1.0) Estimated GFR (Cockcroft-Gault) 38.7 BUN/Creatinine Ratio 18 (6-20) Glucose Level 83 mg/dL (70-99) Calcium Level 9.0 mg/dL (8.5-10.1) Total Bilirubin 0.6 mg/dL (0.2-1.0) Aspartate Amino Transf (AST/SGOT) 21 U/L (15-37) Alanine Aminotransferase (ALT/SGPT) 16 U/L (14-59) Alkaline Phosphatase 110 U/L (46-116) Total Protein 7.1 g/dL (6.4-8.2) Albumin 3.1 g/dL (3.4-5.0) Albumin/Globulin Ratio 0.8 (1.0-1.7) Images Images 2 views left forearm and 3 views left wrist dated 12/26/2019. 3 views of left wrist show normal bony alignment. No displaced fracture. Moderate to severe degenerative change of the first carpometacarpal joint and scaphotrapezial joint. Mild degenerative change of the radiocarpal joint. 2 views of left forearm show normal bony alignment. No displaced fracture. The radial and ulnar shafts are intact. IMPRESSION: 1. No acute radiographic abnormality. 2. Degenerative changes as described. VTE Prophylaxis Ordered VTE Prophylaxis Devices: Yes VTE Pharmacological Prophylaxi: Yes Assessment/Plan Assessment/Plan A/P: Bilateral wrist pain - unable to use her walker due to right wrist fracture, will have PT evaluate for platform walker Right wrist fracture - splinted. 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 Seen by nephrology Hyperlipidemia CAD s/p BETSEY - she has been concerned about brillinta and has not filled it recently, needs antiplatelet, will order plavix Chronic diastolic Congestive heart failure S/p right nephrectomy H/o Cervical cancer s/p TAHBSO Aortic stenosis - with falls, could be partially syncope related, will order echocardiogram Anemia - likely of chronic renal disease, will check iron stores Moderate protein calorie malnutrition - will ask mds coordinator to see Paranoid behavior - will ask psych to evaluate, may have some mild cognitive impairment FEN - Cardiac diet PPX - lovenox FULL CODE Dispo - Inpatient for frequent falls and inability to care for herself. She has made it clear she does not want permanent SNF placement and is amenable to acute rehab Justicifation of Admission Dx: Justifications for Admission: Justification of Admission Dx: N/A VICTORIANO TORRE MD Dec 26, 2019 19:21
[2019-12-26] MEDS ORDERED: ACETAMINOPHEN 325 MG TABLET. PO PRN (20:15)
[2019-12-26] MEDS: traMADol 50 MG TABLET PO PRN (21:38)
[2019-12-26] MEDS: SIMVASTATIN 40 MG TABLET. PO SCH (21:39)
[2019-12-26 22:51] VITALS: BP 149/59
[2019-12-27] MEDS ORDERED: fentaNYL PF VIAL 100 MCG/2 ML VIAL IVP PRN (02:15)
[2019-12-27] MEDS: traMADol 50 MG TABLET PO PRN ×2 (03:39→09:19)
[2019-12-27 03:40] VITALS: BP 133/42
[2019-12-27 05:46] LABS: BASO % 0 % (0-3); EOS # 0.3 x10^3/uL (0.0-0.7); EOS % 4 % (0-3); HEMATOCRIT 32.2 % (36.0-47.0); HEMOGLOBIN 10.6 g/dL (12.0-15.5); LYMPH # 1.6 x10^3/uL (1.0-4.8); LYMPH % 21 % (24-48); MEAN CORPUSCULAR HEMOGLOBIN 29 pg (25-35); MEAN CORPUSCULAR HGB CONC 33 g/dL (31-37); MEAN CORPUSCULAR VOLUME 89 fL (79-100); MONO # 0.6 x10^3/uL (0.0-1.1); MONO % 8 % (0-9); NEUT % 66 % (31-73); PLATELET COUNT 218 x10^3/uL (140-400); RED BLOOD COUNT 3.61 x10^6/uL (3.50-5.40); RED CELL DISTRIBUTION WIDTH 17.3 % (11.5-14.5); WHITE BLOOD COUNT 7.5 x10^3/uL (4.0-11.0)
[2019-12-27] MEDS: PANTOPRAZOLE 40 MG TABLET.DR. PO SCH (05:46)
[2019-12-27 06:00] LABS: CALCIUM 8.4 mg/dL (8.5-10.1); CREATININE 1.4 mg/dL (0.6-1.0); GFR 35.5; POTASSIUM 3.8 mmol/L (3.5-5.1)
[2019-12-27 07:00] VITALS: BP 137/66
[2019-12-27] MEDS: ENOXAPARIN 30 MG/0.3 ML SYRINGE. SQ SCH ×2 (09:00→09:18)
[2019-12-27] MEDS: LEVOTHYROXINE 88 MCG TABLET PO SCH (09:18)
[2019-12-27] MEDS: ASPIRIN ENTERIC COATED 81 MG TABLET.DR. PO SCH (09:18)
[2019-12-27] MEDS: ALLOPURINOL 100 MG TABLET. PO SCH (09:18)
[2019-12-27] MEDS: CLOPIDOGREL BISULFATE 75 MG TABLET PO SCH (09:18)
[2019-12-27] MEDS: CITALOPRAM 20 MG TABLET. PO SCH (09:19)
--- NOTE | 2019-12-27 10:29 | PDOC ---
PROGRESS NOTES Date of Service: DATE: 12/27/19 TIME: 10:29 Chief Complaint Chief Complaint VTE Prophylaxis Ordered VTE Prophylaxis Devices: Yes VTE Pharmacological Prophylaxi: Yes Assessment/Plan Assessment/Plan A/P: Bilateral wrist pain - unable to use her walker due to right wrist fracture, will have PT evaluate for platform walker Comminuted distal radius fracture, intra-articular extension through the radiocarpal articulation, mild fracture fragment displacement and minimal volar apex angulation. No definite ulnar styloid process fracture, carpal bone fracture or acute abnormality of the visualized hand, but recommend at Severe thumb CMC arthrosis and partially assessed severe arthrosis at a few interphalangeal joints. Osteopenia. Right wrist fracture - splinted. 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 Seen by nephrology Hyperlipidemia CAD s/p BETSEY - she has been concerned about brillinta and has not filled it recently, needs antiplatelet, will order plavix Chronic diastolic Congestive heart failure S/p right nephrectomy H/o Cervical cancer s/p TAHBSO Aortic stenosis - with falls, could be partially syncope related, will order echocardiogram Anemia - likely of chronic renal disease, will check iron stores Moderate protein calorie malnutrition - will ask bill peddler to see Paranoid behavior - will ask psych to evaluate, may have some mild cognitive impairment FEN - Cardiac diet PPX - lovenox FULL CODE Dispo - Inpatient for frequent falls and inability to care for herself. She has made it clear she does not want permanent SNF placement and is amenable to acute rehab echo CARDIOLOGY CONSULT PRE-OP History of Present Illness History of Present Illness History of Present Illness History of Present Illness Ms Campos is an 87yo F w/ PMHx CAD s/p BETSEY, Congestive heart failure, Chronic kidney disease s/p right nephrectomy, cervical cancer s/p TAHBSO, and aortic stenosis who presents with increased weakness and frequent falls. She notes a mechanical fall resulting in a left wrist injury. Patient was here 4 days ago for a fall and a right wrist fracture. Patient has a splint on that wrist. Patient denies any dizziness, chest pain and states her legs went out on her which is not uncommon for her and she fell and landed on her left wrist. Patient describes moderate pain that radiates up to the left forearm that is worse with palpation and movement. Patient denies any focal numbness. Patient does have some limited range of motion in the wrist due to pain. Patient denies hitting her head or having loss of consciousness. Cr 1.3, albumin 3.1. Left wrist x-ray with no acute fracture. When discussing her falls and potential rehab she asks "would you put your mother in a care home? I do want to be put in the home." She is asking for dinner tells me she has not eaten in 2 days. Admitted for further treatment. Vitals Vitals Vital Signs Date Time Temp Pulse Resp B/P (MAP) Pulse Ox O2 Delivery O2 Flow Rate FiO2 12/27/19 10:22 Room Air 12/27/19 07:00 97.7 89 16 137/66 (89) 93 97.7 Physical Exam General: Alert, Cooperative, mild distress Heart: Regular rate Lungs: Wheezing Abdomen: Normal bowel sounds, Soft, No tenderness, No hepatosplenomegaly, No masses Extremities: No clubbing, No cyanosis, Normal pulses, Other (Bruising of right hand, splinted wrist. Pain on left wrist movement. Joaquim LE edema) Skin: No rashes, No breakdown, No significant lesion Labs LABS Study: 1. CR WRIST 3V RIGHT 2. CR ELBOW RIGHT 3V Indication: Wrist and elbow pain after a fall. Comparison: None. Findings: Elbow: No elbow joint effusion. Alignment is maintained. No displaced fracture. Chronic changes to include enthesophyte formation at the common extensor origin and minimal spurring at the olecranon process. Wrist: Acute, comminuted distal radius fracture with a horizontal component through the metaphysis resulting in mild impaction and volar apex angulation. A longitudinal component extends along the ulnar margin of the distal radius with radiocarpal intra-articular extension as best appreciated on the oblique view. Mild fracture fragment displacement. The base of the ulnar styloid process appears irregular on the PA view but this is less conspicuous on the oblique view. Osteopenia. Severe thumb CMC arthrosis. Less pronounced arthrosis at the triscaphe joint. No widening across the scapholunate interval. Incompletely assessed degenerative changes of the hand particularly at the interphalangeal joints. Expected soft tissue sequela of trauma at the distal forearm to the wrist Impression: Elbow: 1. No acute fracture or traumatic malalignment. Wrist: 1. Mildly comminuted distal radius fracture, as detailed above, with intra-articular extension through the radiocarpal articulation, mild fracture fragment displacement and minimal volar apex angulation. No definite ulnar styloid process fracture, carpal bone fracture or acute abnormality of the visualized hand, but recommend attention on follow-up. 2. Severe thumb CMC arthrosis and partially assessed severe arthrosis at a few interphalangeal joints. Osteopenia. Electronically signed by: JOHN CONLEY MD (12/23/2019 9:04 AM) [id number] DICTATED and SIGNED BY: JOHN CONLEY MD DATE: 12/23/19 0904 Laboratory Tests Test 12/26/19 17:59 12/27/19 04:20 White Blood Count 6.7 x10^3/uL (4.0-11.0) 7.5 x10^3/uL (4.0-11.0) Red Blood Count 3.79 x10^6/uL (3.50-5.40) 3.61 x10^6/uL (3.50-5.40) Hemoglobin 11.2 g/dL (12.0-15.5) 10.6 g/dL (12.0-15.5) Hematocrit 33.8 % (36.0-47.0) 32.2 % (36.0-47.0) Mean Corpuscular Volume 89 fL (79-100) 89 fL (79-100) Mean Corpuscular Hemoglobin 30 pg (25-35) 29 pg (25-35) Mean Corpuscular Hemoglobin Concent 33 g/dL (31-37) 33 g/dL (31-37) Red Cell Distribution Width 17.2 % (11.5-14.5) 17.3 % (11.5-14.5) Platelet Count 222 x10^3/uL (140-400) 218 x10^3/uL (140-400) Neutrophils (%) (Auto) 69 % (31-73) 66 % (31-73) Lymphocytes (%) (Auto) 20 % (24-48) 21 % (24-48) Monocytes (%) (Auto) 8 % (0-9) 8 % (0-9) Eosinophils (%) (Auto) 3 % (0-3) 4 % (0-3) Basophils (%) (Auto) 1 % (0-3) 0 % (0-3) Neutrophils # (Auto) 4.6 x10^3/uL (1.8-7.7) 5.0 x10^3/uL (1.8-7.7) Lymphocytes # (Auto) 1.3 x10^3/uL (1.0-4.8) 1.6 x10^3/uL (1.0-4.8) Monocytes # (Auto) 0.5 x10^3/uL (0.0-1.1) 0.6 x10^3/uL (0.0-1.1) Eosinophils # (Auto) 0.2 x10^3/uL (0.0-0.7) 0.3 x10^3/uL (0.0-0.7) Basophils # (Auto) 0.1 x10^3/uL (0.0-0.2) 0.0 x10^3/uL (0.0-0.2) Sodium Level 141 mmol/L (136-145) 141 mmol/L (136-145) Potassium Level 3.9 mmol/L (3.5-5.1) 3.8 mmol/L (3.5-5.1) Chloride Level 104 mmol/L (98-107) 104 mmol/L (98-107) Carbon Dioxide Level 30 mmol/L (21-32) 26 mmol/L (21-32) Anion Gap 7 (6-14) 11 (6-14) Blood Urea Nitrogen 24 mg/dL (7-20) 23 mg/dL (7-20) Creatinine 1.3 mg/dL (0.6-1.0) 1.4 mg/dL (0.6-1.0) Estimated GFR (Cockcroft-Gault) 38.7 35.5 BUN/Creatinine Ratio 18 (6-20) Glucose Level 83 mg/dL (70-99) 83 mg/dL (70-99) Calcium Level 9.0 mg/dL (8.5-10.1) 8.4 mg/dL (8.5-10.1) Total Bilirubin 0.6 mg/dL (0.2-1.0) Aspartate Amino Transf (AST/SGOT) 21 U/L (15-37) Alanine Aminotransferase (ALT/SGPT) 16 U/L (14-59) Alkaline Phosphatase 110 U/L (46-116) Total Protein 7.1 g/dL (6.4-8.2) Albumin 3.1 g/dL (3.4-5.0) Albumin/Globulin Ratio 0.8 (1.0-1.7) Assessment and Plan Assessmemt and Plan Problems Medical Problems: (1) Left wrist sprain Status: Acute Comment Review of Relevant I have reviewed the following items javan (where applicable) has been applied. Labs Laboratory Tests Test 12/26/19 17:59 12/27/19 04:20 White Blood Count 6.7 x10^3/uL (4.0-11.0) 7.5 x10^3/uL (4.0-11.0) Red Blood Count 3.79 x10^6/uL (3.50-5.40) 3.61 x10^6/uL (3.50-5.40) Hemoglobin 11.2 g/dL (12.0-15.5) 10.6 g/dL (12.0-15.5) Hematocrit 33.8 % (36.0-47.0) 32.2 % (36.0-47.0) Mean Corpuscular Volume 89 fL (79-100) 89 fL (79-100) Mean Corpuscular Hemoglobin 30 pg (25-35) 29 pg (25-35) Mean Corpuscular Hemoglobin Concent 33 g/dL (31-37) 33 g/dL (31-37) Red Cell Distribution Width 17.2 % (11.5-14.5) 17.3 % (11.5-14.5) Platelet Count 222 x10^3/uL (140-400) 218 x10^3/uL (140-400) Neutrophils (%) (Auto) 69 % (31-73) 66 % (31-73) Lymphocytes (%) (Auto) 20 % (24-48) 21 % (24-48) Monocytes (%) (Auto) 8 % (0-9) 8 % (0-9) Eosinophils (%) (Auto) 3 % (0-3) 4 % (0-3) Basophils (%) (Auto) 1 % (0-3) 0 % (0-3) Neutrophils # (Auto) 4.6 x10^3/uL (1.8-7.7) 5.0 x10^3/uL (1.8-7.7) Lymphocytes # (Auto) 1.3 x10^3/uL (1.0-4.8) 1.6 x10^3/uL (1.0-4.8) Monocytes # (Auto) 0.5 x10^3/uL (0.0-1.1) 0.6 x10^3/uL (0.0-1.1) Eosinophils # (Auto) 0.2 x10^3/uL (0.0-0.7) 0.3 x10^3/uL (0.0-0.7) Basophils # (Auto) 0.1 x10^3/uL (0.0-0.2) 0.0 x10^3/uL (0.0-0.2) Sodium Level 141 mmol/L (136-145) 141 mmol/L (136-145) Potassium Level 3.9 mmol/L (3.5-5.1) 3.8 mmol/L (3.5-5.1) Chloride Level 104 mmol/L (98-107) 104 mmol/L (98-107) Carbon Dioxide Level 30 mmol/L (21-32) 26 mmol/L (21-32) Anion Gap 7 (6-14) 11 (6-14) Blood Urea Nitrogen 24 mg/dL (7-20) 23 mg/dL (7-20) Creatinine 1.3 mg/dL (0.6-1.0) 1.4 mg/dL (0.6-1.0) Estimated GFR (Cockcroft-Gault) 38.7 35.5 BUN/Creatinine Ratio 18 (6-20) Glucose Level 83 mg/dL (70-99) 83 mg/dL (70-99) Calcium Level 9.0 mg/dL (8.5-10.1) 8.4 mg/dL (8.5-10.1) Total Bilirubin 0.6 mg/dL (0.2-1.0) Aspartate Amino Transf (AST/SGOT) 21 U/L (15-37) Alanine Aminotransferase (ALT/SGPT) 16 U/L (14-59) Alkaline Phosphatase 110 U/L (46-116) Total Protein 7.1 g/dL (6.4-8.2) Albumin 3.1 g/dL (3.4-5.0) Albumin/Globulin Ratio 0.8 (1.0-1.7) Laboratory Tests Test 12/26/19 17:59 12/27/19 04:20 White Blood Count 6.7 x10^3/uL (4.0-11.0) 7.5 x10^3/uL (4.0-11.0) Red Blood Count 3.79 x10^6/uL (3.50-5.40) 3.61 x10^6/uL (3.50-5.40) Hemoglobin 11.2 g/dL (12.0-15.5) 10.6 g/dL (12.0-15.5) Hematocrit 33.8 % (36.0-47.0) 32.2 % (36.0-47.0) Mean Corpuscular Volume 89 fL (79-100) 89 fL (79-100) Mean Corpuscular Hemoglobin 30 pg (25-35) 29 pg (25-35) Mean Corpuscular Hemoglobin Concent 33 g/dL (31-37) 33 g/dL (31-37) Red Cell Distribution Width 17.2 % (11.5-14.5) 17.3 % (11.5-14.5) Platelet Count 222 x10^3/uL (140-400) 218 x10^3/uL (140-400) Neutrophils (%) (Auto) 69 % (31-73) 66 % (31-73) Lymphocytes (%) (Auto) 20 % (24-48) 21 % (24-48) Monocytes (%) (Auto) 8 % (0-9) 8 % (0-9) Eosinophils (%) (Auto) 3 % (0-3) 4 % (0-3) Basophils (%) (Auto) 1 % (0-3) 0 % (0-3) Neutrophils # (Auto) 4.6 x10^3/uL (1.8-7.7) 5.0 x10^3/uL (1.8-7.7) Lymphocytes # (Auto) 1.3 x10^3/uL (1.0-4.8) 1.6 x10^3/uL (1.0-4.8) Monocytes # (Auto) 0.5 x10^3/uL (0.0-1.1) 0.6 x10^3/uL (0.0-1.1) Eosinophils # (Auto) 0.2 x10^3/uL (0.0-0.7) 0.3 x10^3/uL (0.0-0.7) Basophils # (Auto) 0.1 x10^3/uL (0.0-0.2) 0.0 x10^3/uL (0.0-0.2) Sodium Level 141 mmol/L (136-145) 141 mmol/L (136-145) Potassium Level 3.9 mmol/L (3.5-5.1) 3.8 mmol/L (3.5-5.1) Chloride Level 104 mmol/L (98-107) 104 mmol/L (98-107) Carbon Dioxide Level 30 mmol/L (21-32) 26 mmol/L (21-32) Anion Gap 7 (6-14) 11 (6-14) Blood Urea Nitrogen 24 mg/dL (7-20) 23 mg/dL (7-20) Creatinine 1.3 mg/dL (0.6-1.0) 1.4 mg/dL (0.6-1.0) Estimated GFR (Cockcroft-Gault) 38.7 35.5 BUN/Creatinine Ratio 18 (6-20) Glucose Level 83 mg/dL (70-99) 83 mg/dL (70-99) Calcium Level 9.0 mg/dL (8.5-10.1) 8.4 mg/dL (8.5-10.1) Total Bilirubin 0.6 mg/dL (0.2-1.0) Aspartate Amino Transf (AST/SGOT) 21 U/L (15-37) Alanine Aminotransferase (ALT/SGPT) 16 U/L (14-59) Alkaline Phosphatase 110 U/L (46-116) Total Protein 7.1 g/dL (6.4-8.2) Albumin 3.1 g/dL (3.4-5.0) Albumin/Globulin Ratio 0.8 (1.0-1.7) Medications Current Medications Tramadol HCl (Ultram) 50 mg 1X ONCE PO Last administered on 12/26/19 13:37; Start 12/26/19 at 13:30; Stop 12/26/19 at 13:31; Status DC Ondansetron HCl (Zofran) 4 mg PRN Q8HRS PRN IV NAUSEA/VOMITING; Start 12/26/19 at 16:45; Stop 12/26/19 at 20:11; Status DC Ondansetron HCl (Zofran) 4 mg PRN Q4HRS PRN IV NAUSEA/VOMITING; Start 12/26/19 at 20:15 Acetaminophen (Tylenol) 650 mg PRN Q6HRS PRN PO TEMP > 100.3'F; Start 12/26/19 at 20:15 Allopurinol (Zyloprim) 100 mg DAILY PO Last administered on 12/27/19 09:18; Start 12/27/19 at 09:00 Aspirin (Ecotrin) 81 mg DAILY08 PO Last administered on 12/27/19 09:18; Start 12/27/19 at 08:00 Levothyroxine Sodium (Synthroid) 88 mcg DAILY PO Last administered on 12/27/19 09:18; Start 12/27/19 at 09:00 Pantoprazole Sodium (Protonix) 40 mg DAILY07 PO Last administered on 12/27/19 05:46; Start 12/27/19 at 07:00 Citalopram Hydrobromide (CeleXA) 40 mg DAILY PO Last administered on 12/27/19 09:19; Start 12/27/19 at 09:00 Simvastatin (Zocor) 80 mg QHS PO Last administered on 12/26/19at 21:39; Start 12/26/19 at 21:00 Enoxaparin Sodium (Lovenox 30mg Syringe) 30 mg Q24H SQ ; Start 12/27/19 at 09:00 Clopidogrel Bisulfate (Plavix) 75 mg DAILYWBKFT PO Last administered on 12/27/19 09:18; Start 12/27/19 at 08:00 Tramadol HCl (Ultram) 50 mg PRN Q6HRS PRN PO PAIN Last administered on 12/27/19 09:19; Start 12/26/19 at 20:15 Fentanyl Citrate (Fentanyl 2ml Vial) 25 mcg PRN Q2HR PRN IVP PAIN Last administered on 12/27/19at 02:18; Start 12/27/19 at 02:15 Active Scripts Active [place] 5-325 Tablet (Acetaminophen/Hydrocodone Bitart) 1 Each Tablet 1-2 Each PO PRN Q6HRS PRN as needed for pain Ibuprofen 600 Mg Tablet 600 Mg PO PRN Q6HRS PRN take with food or milk Keflex (Cephalexin) 500 Mg Capsule 500 Mg PO QID 7 Days Culturelle (Lactobacillus Rhamnosus Gg) 1 Each Cap.sprink 1 Cap PO BID 7 Days Reported Brilinta (Ticagrelor) 90 Mg Tablet 90 Mg PO BID Tova-D 24 Hour Tablet (Fexofenadine/Pseudoephedrine) 1 Each Tab.er.24h 1 Tab PO DAILY Levothyroxine Sodium 88 Mcg Tablet 88 Mcg PO DAILY Citalopram Hbr (Citalopram Hydrobromide) 40 Mg Tablet 40 Mg PO DAILY Allopurinol 100 Mg Tablet 100 Mg PO DAILY Pantoprazole Sodium (Pantoprazole Sodium) 40 Mg Tablet. 40 Mg PO DAILY Aspir-Low (Aspirin) 81 Mg Tablet.dr 1 Tab PO DAILY Simvastatin 80 Mg Tablet 1 Tab PO QHS Furosemide 40 Mg Tablet 1 Tab PO DAILY Vitals/I & O Vital Sign - Last 24 Hours 12/26/19 12/26/19 12/26/19 12/26/19 12:18 12:50 13:37 13:50 Temp 98.1 98.1 Pulse 77 72 78 Resp 18 18 12 B/P (MAP) 147/74 (98) Pulse Ox 100 98 99 99 O2 Delivery Room Air Room Air 12/26/19 12/26/19 12/26/19 12/26/19 14:50 15:50 16:50 17:50 Pulse 70 78 76 74 Resp 20 21 19 Pulse Ox 96 96 98 99 12/26/19 12/26/19 12/26/19 12/26/19 18:41 19:00 19:50 21:38 Temp 98.4 98.4 98.4 98.4 Pulse 76 87 Resp 20 19 B/P (MAP) 135/52 (79) 125/44 (71) Pulse Ox 97 96 O2 Delivery Room Air Room Air Room Air Room Air 8/812/27/19 12/27/19 12/27/19 22:51 01:40 02:18 03:17 Temp 98.3 98.3 Pulse 79 Resp 18 B/P (MAP) 149/59 (89) Pulse Ox 98 O2 Delivery Room Air Room Air Room Air Room Air 12/27/19 12/27/19 12/27/19 12/27/19 03:39 03:40 05:13 07:00 Temp 98.3 97.7 98.3 97.7 Pulse 89 89 Resp 18 16 B/P (MAP) 133/42 (72) 137/66 (89) Pulse Ox 92 93 O2 Delivery Room Air Room Air Room Air Room Air 12/27/19 12/27/19 12/27/19 08:00 09:19 10:22 O2 Delivery Room Air Room Air Room Air Intake and Output 12/26/19 12/26/19 12/27/19 15:00 23:00 07:00 Intake Total 0 ml 910 ml Output Total 100 ml Balance 0 ml 810 ml Justicifation of Admission Dx: Justifications for Admission: Justification of Admission Dx: N/A KACIE ECHEVERRIA MD Dec 27, 2019 10:29
[2019-12-27 11:00] VITALS: BP 131/62
--- NOTE | 2019-12-27 13:09 | PDOC2 ---
CONSULT Date of Consult Date of Consult DATE: 12/27/19 TIME: 13:06 Reason for Consult Reason for Consult: Right wrist fracture, left wrist sprain, frequent falls Identification/Chief Complaint Chief Complaint Frequent falls, right wrist fracture, right wrist pain, left wrist pain and left wrist sprain Source Source: Chart review, Patient History of Present Illness Reason for Visit: This 89-year-old woman lives in an apartment, by herself, and no longer drives. She has had frequent falls this last week, falling and causing a right wrist fracture on December 22, and now falling again and injuring the left wrist last night. She was admitted to the hospital possibly for rehabilitation and for possible wrist surgery. She does complain of a lot of wrist pain and when I discussed nonoperative treatment with casting she was somewhat unhappy that "nothing was going to be done" for her painful wrist fracture. The fracture is borderline to need surgery, there are some cases where I would operate on this fracture pattern, but she has quite a few medical comorbidities. Past Medical History Cardiovascular: HTN, Hyperlipidemia Pulmonary: Bronchitis GI: GERD Heme/Onc: Anemia NOS Psych: Anxiety Musculoskeletal: Osteoarthritis Rheumatologic: Gout Infectious disease: Other Renal/: Chronic renal failure Endocrine: Hypothyroidism Past Surgical History Past Surgical History She had skin polyp removal by Dr. Dias at [facility] under general anesthesia in 2018. No reported complications. Past Surgical History: Hysterectomy Family History Family History: Hypertension Social History No ALCOHOL: none Drugs: None Lives: with Family Current Problem List Problem List Problems Medical Problems: (1) Left wrist sprain Status: Acute Current Medications Current Medications Current Medications Tramadol HCl (Ultram) 50 mg 1X ONCE PO Last administered on 12/26/19at 13:37; Start 12/26/19 at 13:30; Stop 12/26/19 at 13:31; Status DC Ondansetron HCl (Zofran) 4 mg PRN Q8HRS PRN IV NAUSEA/VOMITING; Start 12/26/19 at 16:45; Stop 12/26/19 at 20:11; Status DC Ondansetron HCl (Zofran) 4 mg PRN Q4HRS PRN IV NAUSEA/VOMITING; Start 12/26/19 at 20:15 Acetaminophen (Tylenol) 650 mg PRN Q6HRS PRN PO TEMP > 100.3'F; Start 12/26/19 at 20:15 Allopurinol (Zyloprim) 100 mg DAILY PO Last administered on 12/27/19 09:18; S tart 12/27/19 at 09:00 Aspirin (Ecotrin) 81 mg DAILY08 PO Last administered on 12/27/19at 09:18; Start 12/27/19 at 08:00 Levothyroxine Sodium (Synthroid) 88 mcg DAILY PO Last administered on 12/27/19 09:18; Start 12/27/19 at 09:00 Pantoprazole Sodium (Protonix) 40 mg DAILY07 PO Last administered on 12/27/19 05:46; Start 12/27/19 at 07:00 Citalopram Hydrobromide (CeleXA) 40 mg DAILY PO Last administered on 12/27/19 09:19; Start 12/27/19 at 09:00 Simvastatin (Zocor) 80 mg QHS PO Last administered on 12/26/19at 21:39; Start 12/26/19 at 21:00 Enoxaparin Sodium (Lovenox 30mg Syringe) 30 mg Q24H SQ ; Start 12/27/19 at 09:00 Clopidogrel Bisulfate (Plavix) 75 mg DAILYWBKFT PO Last administered on 12/27/19 09:18; Start 12/27/19 at 08:00 Tramadol HCl (Ultram) 50 mg PRN Q6HRS PRN PO PAIN Last administered on 12/27/19at 09:19; Start 12/26/19 at 20:15 Fentanyl Citrate (Fentanyl 2ml Vial) 25 mcg PRN Q2HR PRN IVP PAIN Last administered on 12/27/19at 02:18; Start 12/27/19 at 02:15 Active Scripts Active [place] 5-325 Tablet (Acetaminophen/Hydrocodone Bitart) 1 Each Tablet 1-2 Each PO PRN Q6HRS PRN as needed for pain Ibuprofen 600 Mg Tablet 600 Mg PO PRN Q6HRS PRN take with food or milk Keflex (Cephalexin) 500 Mg Capsule 500 Mg PO QID 7 Days Culturelle (Lactobacillus Rhamnosus Gg) 1 Each Cap.sprink 1 Cap PO BID 7 Days Reported Brilinta (Ticagrelor) 90 Mg Tablet 90 Mg PO BID Tova-D 24 Hour Tablet (Fexofenadine/Pseudoephedrine) 1 Each Tab.er.24h 1 Tab PO DAILY Levothyroxine Sodium 88 Mcg Tablet 88 Mcg PO DAILY Citalopram Hbr (Citalopram Hydrobromide) 40 Mg Tablet 40 Mg PO DAILY Allopurinol 100 Mg Tablet 100 Mg PO DAILY Pantoprazole Sodium (Pantoprazole Sodium) 40 Mg Tablet.dr 40 Mg PO DAILY Aspir-Low (Aspirin) 81 Mg Tablet.dr 1 Tab PO DAILY Simvastatin 80 Mg Tablet 1 Tab PO QHS Furosemide 40 Mg Tablet 1 Tab PO DAILY Allergies Allergies: Coded Allergies: No Known Drug Allergies (Unverified , 03/02/14) ROS Review of System General: YES: Fatigue, Malaise; No: Chills, Night Sweats, Appetite, Other PSYCHOLOGICAL ROS: YES: Anxiety, Concentration difficultie, Depression, Disorientation, Irritablity, Memory difficulties, Mood Swings; No: Behavioral Disorder, Decreased libido, Hallucinations, Hostility, Obsessive thoughts, Physical abuse, Sexual abuse, Sleep disturbances, Suicidal ideation, Other Eyes: No Blurry vision, No Decreased vision, No Double vision, No Dry eyes, No Excessive tearing, No Eye Pain, No Itchy Eyes, No Loss of vision, No Photophobia, No Scotomata, No Uses contacts, No Uses glasses, No Other HEENT: No: Heacaches, Visual Changes, Hearing change, Nasal congestion, Nasal discharge, Oral lesions, Sinus pain, Sore Throat, Epistaxis, Sneezing, Snoring, Tinnitus, Vertigo, Vocal changes, Other ALLERGY AND IMMUNOLOGY: No: Hives, Insect Bite Sensitivity, Itchy/Watery Eyes, Nasal Congestion, Post Nasal Drip, Seasonal Allergies, Other Hematological and Lymphatic: No: Bleeding Problems, Blood Clots, Blood Transfusions, Brusing, Night Sweats, Pallor, Swollen Lymph Nodes, Other ENDOCRINE: No: Breast Changes, Galactorrhea, Hair Pattern Changes, Hot Flashes, Malaise/lethargy, Mood Swings, Palpitations, Polydipsia/polyuria, Skin Changes, Temperature Intolerance, Unexpected Weight Changes, Other Breast: No New/Changing Breast Lumps, No Nipple changes, No Nipple discharge, No Other Respiratory: No: Cough, Hemoptysis, Orthopnea, Pleuritic Pain, Shortness of breath, SOB with excertion, Sputum Changes, Stridor, Tachypnea, Wheezing, Other Cardiovascular: No Chest Pain, No Palpitations, No Orthopnea, No Paroxysmal Noc. Dyspnea, No Edema, No Lt Headedness, No Other Gastrointestinal: No Nausea, No Vomiting, No Abdominal Pain, No Diarrhea, No Constipation, No Melena, No Hematochezia, No Other Genitourinary: No Dysuria, No Frequency, No Incontinence, No Hematuria, No Retention, No Discharge, No Urgency, No Pain, No Flank Pain, No Other, No , No , No , No , No , No , No Musculoskeletal: Yes Gait Disturbance, Yes Joint Pain, Yes Joint Swelling, Yes Muscle Pain, Yes Muscular Weakness; No Joint Stiffness, No Pain In:, No Swelling In:, No Other Neurological: Yes Confusion, Yes Gait Disturbance; No Behavorial Changes, No Bowel/Bladder ControlChng, No Dizziness, No Headaches, No Impaired Coord/balance, No Memory Loss, No Numbness/Tingling, No Seizures, No Speech Problems, No Tremors, No Visual Changes, No Weakness, No Other Skin: No Dry Skin, No Eczema, No Hair Changes, No Lumps, No Mole Changes, No Mottling, No Nail Changes, No Pruritus, No Rash, No Skin Lesion Changes, No Other, No Acne Physical Exam General: Alert, Cooperative HEENT: Atraumatic Lungs: Normal air movement Heart: Regular rate Abdomen: Soft Extremities: No cyanosis, Other (The right wrist is in a splint which was not removed for the exam. There is swelling at the wrist area. The alignment appears normal. There is tenderness at the wrist. Motion is decreased but there is no evidence of specific neurovascular injury. Capillary refill is normal. Pulse is not assessable due to the tenderness of the wrist and the splint. Light touch sensation is intact. Motor function is present for the radial ulnar and median nerves. There is no tenderness at the elbow. The skin is reported intact over the fracture but there is some ecchymosis in the arm. The left wrist shows normal alignment, minimal tenderness, no focal bony tenderness, minimal swelling, no ecchymosis, and is in an Sreedhar wrap for presumed sprain.) Skin: No significant lesion, Other (ecchymosis right forearm) Neuro: Normal speech, Sensation intact Vitals VITALS Vital Signs Date Time Temp Pulse Resp B/P (MAP) Pulse Ox O2 Delivery O2 Flow Rate FiO2 12/27/19 11:00 98.8 84 18 131/62 (85) 94 Room Air 98.8 Labs Labs Laboratory Tests Test 12/26/19 17:59 12/27/19 04:20 White Blood Count 6.7 x10^3/uL (4.0-11.0) 7.5 x10^3/uL (4.0-11.0) Red Blood Count 3.79 x10^6/uL (3.50-5.40) 3.61 x10^6/uL (3.50-5.40) Hemoglobin 11.2 g/dL (12.0-15.5) 10.6 g/dL (12.0-15.5) Hematocrit 33.8 % (36.0-47.0) 32.2 % (36.0-47.0) Mean Corpuscular Volume 89 fL (79-100) 89 fL (79-100) Mean Corpuscular Hemoglobin 30 pg (25-35) 29 pg (25-35) Mean Corpuscular Hemoglobin Concent 33 g/dL (31-37) 33 g/dL (31-37) Red Cell Distribution Width 17.2 % (11.5-14.5) 17.3 % (11.5-14.5) Platelet Count 222 x10^3/uL (140-400) 218 x10^3/uL (140-400) Neutrophils (%) (Auto) 69 % (31-73) 66 % (31-73) Lymphocytes (%) (Auto) 20 % (24-48) 21 % (24-48) Monocytes (%) (Auto) 8 % (0-9) 8 % (0-9) Eosinophils (%) (Auto) 3 % (0-3) 4 % (0-3) Basophils (%) (Auto) 1 % (0-3) 0 % (0-3) Neutrophils # (Auto) 4.6 x10^3/uL (1.8-7.7) 5.0 x10^3/uL (1.8-7.7) Lymphocytes # (Auto) 1.3 x10^3/uL (1.0-4.8) 1.6 x10^3/uL (1.0-4.8) Monocytes # (Auto) 0.5 x10^3/uL (0.0-1.1) 0.6 x10^3/uL (0.0-1.1) Eosinophils # (Auto) 0.2 x10^3/uL (0.0-0.7) 0.3 x10^3/uL (0.0-0.7) Basophils # (Auto) 0.1 x10^3/uL (0.0-0.2) 0.0 x10^3/uL (0.0-0.2) Sodium Level 141 mmol/L (136-145) 141 mmol/L (136-145) Potassium Level 3.9 mmol/L (3.5-5.1) 3.8 mmol/L (3.5-5.1) Chloride Level 104 mmol/L (98-107) 104 mmol/L (98-107) Carbon Dioxide Level 30 mmol/L (21-32) 26 mmol/L (21-32) Anion Gap 7 (6-14) 11 (6-14) Blood Urea Nitrogen 24 mg/dL (7-20) 23 mg/dL (7-20) Creatinine 1.3 mg/dL (0.6-1.0) 1.4 mg/dL (0.6-1.0) Estimated GFR (Cockcroft-Gault) 38.7 35.5 BUN/Creatinine Ratio 18 (6-20) Glucose Level 83 mg/dL (70-99) 83 mg/dL (70-99) Calcium Level 9.0 mg/dL (8.5-10.1) 8.4 mg/dL (8.5-10.1) Total Bilirubin 0.6 mg/dL (0.2-1.0) Aspartate Amino Transf (AST/SGOT) 21 U/L (15-37) Alanine Aminotransferase (ALT/SGPT) 16 U/L (14-59) Alkaline Phosphatase 110 U/L (46-116) Total Protein 7.1 g/dL (6.4-8.2) Albumin 3.1 g/dL (3.4-5.0) Albumin/Globulin Ratio 0.8 (1.0-1.7) Laboratory Tests Test 12/26/19 17:59 12/27/19 04:20 White Blood Count 6.7 x10^3/uL (4.0-11.0) 7.5 x10^3/uL (4.0-11.0) Red Blood Count 3.79 x10^6/uL (3.50-5.40) 3.61 x10^6/uL (3.50-5.40) Hemoglobin 11.2 g/dL (12.0-15.5) 10.6 g/dL (12.0-15.5) Hematocrit 33.8 % (36.0-47.0) 32.2 % (36.0-47.0) Mean Corpuscular Volume 89 fL (79-100) 89 fL (79-100) Mean Corpuscular Hemoglobin 30 pg (25-35) 29 pg (25-35) Mean Corpuscular Hemoglobin Concent 33 g/dL (31-37) 33 g/dL (31-37) Red Cell Distribution Width 17.2 % (11.5-14.5) 17.3 % (11.5-14.5) Platelet Count 222 x10^3/uL (140-400) 218 x10^3/uL (140-400) Neutrophils (%) (Auto) 69 % (31-73) 66 % (31-73) Lymphocytes (%) (Auto) 20 % (24-48) 21 % (24-48) Monocytes (%) (Auto) 8 % (0-9) 8 % (0-9) Eosinophils (%) (Auto) 3 % (0-3) 4 % (0-3) Basophils (%) (Auto) 1 % (0-3) 0 % (0-3) Neutrophils # (Auto) 4.6 x10^3/uL (1.8-7.7) 5.0 x10^3/uL (1.8-7.7) Lymphocytes # (Auto) 1.3 x10^3/uL (1.0-4.8) 1.6 x10^3/uL (1.0-4.8) Monocytes # (Auto) 0.5 x10^3/uL (0.0-1.1) 0.6 x10^3/uL (0.0-1.1) Eosinophils # (Auto) 0.2 x10^3/uL (0.0-0.7) 0.3 x10^3/uL (0.0-0.7) Basophils # (Auto) 0.1 x10^3/uL (0.0-0.2) 0.0 x10^3/uL (0.0-0.2) Sodium Level 141 mmol/L (136-145) 141 mmol/L (136-145) Potassium Level 3.9 mmol/L (3.5-5.1) 3.8 mmol/L (3.5-5.1) Chloride Level 104 mmol/L (98-107) 104 mmol/L (98-107) Carbon Dioxide Level 30 mmol/L (21-32) 26 mmol/L (21-32) Anion Gap 7 (6-14) 11 (6-14) Blood Urea Nitrogen 24 mg/dL (7-20) 23 mg/dL (7-20) Creatinine 1.3 mg/dL (0.6-1.0) 1.4 mg/dL (0.6-1.0) Estimated GFR (Cockcroft-Gault) 38.7 35.5 BUN/Creatinine Ratio 18 (6-20) Glucose Level 83 mg/dL (70-99) 83 mg/dL (70-99) Calcium Level 9.0 mg/dL (8.5-10.1) 8.4 mg/dL (8.5-10.1) Total Bilirubin 0.6 mg/dL (0.2-1.0) Aspartate Amino Transf (AST/SGOT) 21 U/L (15-37) Alanine Aminotransferase (ALT/SGPT) 16 U/L (14-59) Alkaline Phosphatase 110 U/L (46-116) Total Protein 7.1 g/dL (6.4-8.2) Albumin 3.1 g/dL (3.4-5.0) Albumin/Globulin Ratio 0.8 (1.0-1.7) Images Images Report reviewed, images independently reviewed. The right wrist does have a comminuted fracture, possible intra-articular extension, moderate angulation. The left wrist shows no fracture. Both wrists have underlying osteoarthritis in multiple joints. [facility] [address] [place], [place] [id number] IMAGING REPORT Signed PATIENT: NICKIE STAFFORD ACCOUNT: [id number] : 1930 LOCATION: ER AGE: 89 SEX: F EXAM STATUS: PRE ER ORD. PHYSICIAN: KOKO CASSIDY DO REASON: r wrist pain s/p fall PROCEDURE: WRIST 3V RIGHT Study: 1. CR WRIST 3V RIGHT 2. CR ELBOW RIGHT 3V Indication: Wrist and elbow pain after a fall. Comparison: None. Findings: Elbow: No elbow joint effusion. Alignment is maintained. No displaced fracture. Chronic changes to include enthesophyte formation at the common extensor origin and minimal spurring at the olecranon process. Wrist: Acute, comminuted distal radius fracture with a horizontal component through the metaphysis resulting in mild impaction and volar apex angulation. A longitudinal component extends along the ulnar margin of the distal radius with radiocarpal intra-articular extension as best appreciated on the oblique view. Mild fracture fragment displacement. The base of the ulnar styloid process appears irregular on the PA view but this is less conspicuous on the oblique view. Osteopenia. Severe thumb CMC arthrosis. Less pronounced arthrosis at the triscaphe joint. No widening across the scapholunate interval. Incompletely assessed degenerative changes of the hand particularly at the interphalangeal joints. Expected soft tissue sequela of trauma at the distal forearm to the wrist Impression: Elbow: 1. No acute fracture or traumatic malalignment. Wrist: 1. Mildly comminuted distal radius fracture, as detailed above, with intra-articular extension through the radiocarpal articulation, mild fracture fragment displacement and minimal volar apex angulation. No definite ulnar styloid process fracture, carpal bone fracture or acute abnormality of the visualized hand, but recommend attention on follow-up. 2. Severe thumb CMC arthrosis and partially assessed severe arthrosis at a few interphalangeal joints. Osteopenia. Electronically signed by: JOHN CONLEY MD (12/23/2019 9:04 AM) [id number] DICTATED and SIGNED BY: JOHN CONLEY MD DATE: 12/23/19 0904 [facility] [address] [place], [place] [id number] IMAGING REPORT Signed PATIENT: NICKIE STAFFORD ACCOUNT: [id number] : 1930 LOCATION: ER AGE: 89 SEX: F EXAM STATUS: PRE ER ORD. PHYSICIAN: GLADIS LUNDBERG MD REASON: FALL, lt wrist pain PROCEDURE: WRIST 3V LEFT 2 views left forearm and 3 views left wrist dated 12/26/2019. No comparison available. Clinical indication: Fall. Left wrist pain. FINDINGS: 3 views of left wrist show normal bony alignment. No displaced fracture. Moderate to severe degenerative change of the first carpometacarpal joint and scaphotrapezial joint. Mild degenerative change of the radiocarpal joint. 2 views of left forearm show normal bony alignment. No displaced fracture. The radial and ulnar shafts are intact. IMPRESSION: 1. No acute radiographic abnormality. 2. Degenerative changes as described. Electronically signed by: Erasmo Taylor MD (12/26/2019 1:10 PM) [id number] DICTATED and SIGNED BY: ERASMO TAYLOR MD DATE: 12/26/19 1310 Assessment/Plan Assessment/Plan This 89 year old has a displaced distal radius fracture with a small area of i ntra-articular extension. She has quite an extensive medical history. She reports aortic stenosis and CHF but I do not see an echocardiogram in our system. One has been ordered. She did have surgery under general anesthetic 2 years ago without apparent complications. She reports quite a bit of pain at the wrist, and she is relatively functional without apparent significant dem entia. This is her dominant arm. I would like to see her echocardiogram results before making a final decision about surgical versus nonsurgical management. Surgery would likely give a better result of her wrist function and possibly improved pain control, but cast treatment could be used if necessary--the fracture would most likely heal in a cast but would likely result in stiffness, pain, deformity and would cause additional arthritis. The echo should give some predictive value as to the risk of undergoing an anesthetic. She would be able to use a walker more effectively with wrist surgery to stabilize her wrist, and her other problem recently is leg weakness requiring a walker. I will review the echo tomorrow, discuss those results and my recommendations with her further, and make a final decision tomorrow. I also asked the anesthesia department Dr Gr to give an opinion as to the risks of anesthesia for this patient. ADDIE PINA MD Dec 27, 2019 13:09
--- NOTE | 2019-12-27 13:12 | NUR ---
Covid swab completed and taken to lab. Addendum: 12/31/19 at 1650 by DORA HAWKINS RN Charted on wrong pt
[2019-12-27] MEDS ORDERED: oxyCODONE/APAP 5/325 1 TAB TABLET PO PRN (13:30)
[2019-12-27] MEDS: oxyCODONE/APAP 5/325 1 TAB TABLET PO PRN ×2 (13:47→20:53)
[2019-12-27 15:00] VITALS: BP 140/72
--- NOTE | 2019-12-27 15:34 | RAD ---
CHEST AP ONLY History: Reason: WEAKNESS, FALLS 430 / Spl. Instructions: / History: Comparison: November 26, 2018 Findings: No consolidation or pleural effusion. Normal heart size. No pneumothorax. Bilateral glenohumeral DJD, right greater than left. Impression: 1. No acute cardiopulmonary process. Electronically signed by: Cuate Flores DO (12/27/2019 3:31 PM) [facility] [place]
[2019-12-27 19:00] VITALS: BP 133/56
[2019-12-27] MEDS: SIMVASTATIN 40 MG TABLET. PO SCH (20:52)
[2019-12-27 23:00] VITALS: BP 139/55
[2019-12-28 03:00] VITALS: BP 143/59
[2019-12-28] MEDS: oxyCODONE/APAP 5/325 1 TAB TABLET PO PRN ×3 (05:30→21:57)
[2019-12-28 07:00] VITALS: BP 127/54
--- NOTE | 2019-12-28 07:47 | PDOC1 ---
History & Psych Evaluation Date of Service: DOS: DATE: 12/28/19 TIME: 07:46 Source: Source: Caregiver, Chart review, Patient Identification: Identification She is a pleasant 89-year-old female admitted with increased weakness and frequent falls. Chief Complaint: Chief Complaint Paranoid behavior, altered mental status. History of Present Illness: HPI: She is a 87-year-old female with a history of coronary artery disease, congestive heart failure, chronic kidney disease, right nephrectomy, cervical cancer and aortic stenosis admitted with increased weakness and frequent falls. Due to mechanical fall she had left wrist injury and right wrist fracture. She is evaluated for paranoia as reported by nursing staff. Upon interview, she has hard of hearing, however, she tries to interact and cooperative. Stating, she does not have any problem and worried about her memory issues. Stating, lately she has noticed some memory issues and forgetting things. Aside from that she denies any other issue. Psychiatric review of system is negative for depression, anxiety, florid psychosis, auditory or visual hallucinations, tasia or hypomania. Reportedly, family is concerned about patient's paranoia and memory issues. When Mini-Mental Status examination is performed, she has some disturbances in Mini-Mental status exam particularly short-term memory. However patient severe hard of hearing interfering with evaluation process. She needs to be evaluated for her hearing. Past Psychiatric History: Denies past psychiatric history of mental health issues, psychiatric hospitalization. Denies history of suicidal ideation or suicidal attempt. Denies history of nonsuicidal self-injurious behavior Past Medical History: Congestive heart failure Chronic kidney disease Right nephrectomy Coronary artery disease Aortic stenosis Family History: Significant for schizophrenia in sister. Social History: Social History: Born and raised in [place]. 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 Denies illicit substance use. Denies history of legal issues. She lives by herself. Current Medications: Current Medications Current Medications Medications (Trade) Dose Ordered Sig/Dimple Start Time Stop Time Status Last Admin Dose Admin Acetaminophen (Tylenol) 650 mg PRN Q6HRS PRN 12/26/19 20:15 Allopurinol (Zyloprim) 100 mg DAILY 12/27/19 09:00 12/27/19 09:18 100 MG Aspirin (Ecotrin) 81 mg DAILY08 12/27/19 08:00 12/27/19 09:18 81 MG Citalopram Hydrobromide (CeleXA) 40 mg DAILY 12/27/19 09:00 12/27/19 09:19 40 MG Clopidogrel Bisulfate (Plavix) 75 mg DAILYWBKFT 12/27/19 08:00 12/27/19 09:18 75 MG Enoxaparin Sodium (Lovenox 30mg Syringe) 30 mg Q24H 12/27/19 09:00 Fentanyl Citrate (Fentanyl 2ml Vial) 25 mcg PRN Q2HR PRN 12/27/19 02:15 12/27/19 02:18 25 MCG Levothyroxine Sodium (Synthroid) 88 mcg DAILY 12/27/19 09:00 12/27/19 09:18 88 MCG Ondansetron HCl (Zofran) 4 mg PRN Q4HRS PRN 12/26/19 20:15 Oxycodone/ Acetaminophen (Percocet 5/325) 2 tab PRN Q4HRS PRN 12/27/19 13:30 Pantoprazole Sodium (Protonix) 40 mg DAILY07 12/27/19 07:00 12/27/19 05:46 40 MG Simvastatin (Zocor) 80 mg QHS 12/26/19 21:00 12/27/19 20:52 80 MG Tramadol HCl (Ultram) 50 mg PRN Q6HRS PRN 12/26/19 20:15 12/27/19 09:19 50 MG Allergies: Allergies: Coded Allergies: No Known Drug Allergies (Unverified , 03/02/14) Mental Status Examination: Mental Status Examination Elderly female, appears her stated age Cooperative and interactive but has severe hard of hearing Fully alert and oriented Thought processes mostly goal-directed Denies suicidal or homicidal thoughts. Denies auditory or visual hallucinations. No abnormal perception noted Mood is pleasant Affect is euthymic Insight fair judgment fair impulse control fair Attention span and concentration fair Recent memory impaired Remote memory intact ROS: 14 point review of system is otherwise negative except for stated above. Physical Exam: Refer to Physician's note. INVESTIGATOR WELFARE: No focal deficit MSK: No EPS, TDK, or abnormal involuntary movements Vitals: Vitals Vital Signs Date Time Temp Pulse Resp B/P (MAP) Pulse Ox O2 Delivery O2 Flow Rate FiO2 12/28/19 06:30 16 95 Room Air 12/28/19 03:00 97.5 76 143/59 (87) 97.5 Labs: Labs Laboratory Tests Test 12/26/19 17:59 12/27/19 04:20 White Blood Count 6.7 x10^3/uL (4.0-11.0) 7.5 x10^3/uL (4.0-11.0) Red Blood Count 3.79 x10^6/uL (3.50-5.40) 3.61 x10^6/uL (3.50-5.40) Hemoglobin 11.2 g/dL (12.0-15.5) 10.6 g/dL (12.0-15.5) Hematocrit 33.8 % (36.0-47.0) 32.2 % (36.0-47.0) Mean Corpuscular Volume 89 fL (79-100) 89 fL (79-100) Mean Corpuscular Hemoglobin 30 pg (25-35) 29 pg (25-35) Mean Corpuscular Hemoglobin Concent 33 g/dL (31-37) 33 g/dL (31-37) Red Cell Distribution Width 17.2 % (11.5-14.5) 17.3 % (11.5-14.5) Platelet Count 222 x10^3/uL (140-400) 218 x10^3/uL (140-400) Neutrophils (%) (Auto) 69 % (31-73) 66 % (31-73) Lymphocytes (%) (Auto) 20 % (24-48) 21 % (24-48) Monocytes (%) (Auto) 8 % (0-9) 8 % (0-9) Eosinophils (%) (Auto) 3 % (0-3) 4 % (0-3) Basophils (%) (Auto) 1 % (0-3) 0 % (0-3) Neutrophils # (Auto) 4.6 x10^3/uL (1.8-7.7) 5.0 x10^3/uL (1.8-7.7) Lymphocytes # (Auto) 1.3 x10^3/uL (1.0-4.8) 1.6 x10^3/uL (1.0-4.8) Monocytes # (Auto) 0.5 x10^3/uL (0.0-1.1) 0.6 x10^3/uL (0.0-1.1) Eosinophils # (Auto) 0.2 x10^3/uL (0.0-0.7) 0.3 x10^3/uL (0.0-0.7) Basophils # (Auto) 0.1 x10^3/uL (0.0-0.2) 0.0 x10^3/uL (0.0-0.2) Sodium Level 141 mmol/L (136-145) 141 mmol/L (136-145) Potassium Level 3.9 mmol/L (3.5-5.1) 3.8 mmol/L (3.5-5.1) Chloride Level 104 mmol/L (98-107) 104 mmol/L (98-107) Carbon Dioxide Level 30 mmol/L (21-32) 26 mmol/L (21-32) Anion Gap 7 (6-14) 11 (6-14) Blood Urea Nitrogen 24 mg/dL (7-20) 23 mg/dL (7-20) Creatinine 1.3 mg/dL (0.6-1.0) 1.4 mg/dL (0.6-1.0) Estimated GFR (Cockcroft-Gault) 38.7 35.5 BUN/Creatinine Ratio 18 (6-20) Glucose Level 83 mg/dL (70-99) 83 mg/dL (70-99) Calcium Level 9.0 mg/dL (8.5-10.1) 8.4 mg/dL (8.5-10.1) Total Bilirubin 0.6 mg/dL (0.2-1.0) Aspartate Amino Transf (AST/SGOT) 21 U/L (15-37) Alanine Aminotransferase (ALT/SGPT) 16 U/L (14-59) Alkaline Phosphatase 110 U/L (46-116) Total Protein 7.1 g/dL (6.4-8.2) Albumin 3.1 g/dL (3.4-5.0) Albumin/Globulin Ratio 0.8 (1.0-1.7) Diagnosis: Diagnosis: Unspecified neurocognitive disorder. Rule out major neurocognitive disorder Unspecified delirium Rule out delirium,/metabolic encephalopathy. Assessment: She is a pleasant female struggling with memory issues and paranoid behavior. Apparently, during conversation no paranoia, irritability, or agitation noted. However, symptomatology and history is consistent with unspecified delirium. Delirium is a fluctuating process which needs to be monitored continuously. In absence of significant behavioral disturbances, or significant paranoia will avoid antipsychotics due to the risk of adverse drug reaction in octogenarian population. However in case of severe behavioral dis turbances or significant Paranoia interfering with decision making, a trial of antipsychotics can be given. Plan: Continue to monitor for symptomatology and behavioral disturbances. In case of severe behavioral disturbance Haldol 2.5 mg twice a day can be started. Risks, benefits, alternatives are given. Patient is in acceptance with plan. Avoid sundowning. Applied delirium protocol Thank you for involving inpatient care FRANK BURNS MD Dec 28, 2019 07:46
[2019-12-28] MEDS: CITALOPRAM 20 MG TABLET. PO SCH (07:53)
[2019-12-28] MEDS: ENOXAPARIN 30 MG/0.3 ML SYRINGE. SQ SCH (07:53)
[2019-12-28] MEDS: ALLOPURINOL 100 MG TABLET. PO SCH (07:53)
[2019-12-28] MEDS: LEVOTHYROXINE 88 MCG TABLET PO SCH (07:53)
[2019-12-28] MEDS: CLOPIDOGREL BISULFATE 75 MG TABLET PO SCH (07:53)
[2019-12-28] MEDS: PANTOPRAZOLE 40 MG TABLET.DR. PO SCH (07:53)
[2019-12-28] MEDS: ASPIRIN ENTERIC COATED 81 MG TABLET.DR. PO SCH (07:53)
[2019-12-28 11:00] VITALS: BP 121/50
--- NOTE | 2019-12-28 11:01 | PDOC2 ---
OPAL MCKEON EMPLOYMENT LAW ATTORNEY 12/28/19 1101: CARDIAC CONSULT DATE OF CONSULT Date of Consult DATE: 12/28/19 TIME: 10:52 REASON FOR CONSULT Reason for Consult: Pre-op eval REFERRING PHYSICIAN Referring Physician: Dr. Wayne SOURCE Source: Chart review, Patient HISTORY OF PRESENT ILLNESS HISTORY OF PRESENT ILLNESS This is an 89 yo female who presented secondary to left wrist pain following mechanical fall. Patient was here 3 days prior with mechanical fall and right wrist fracture and had splint placed. PAST MEDICAL HISTORY Cardiovascular: CAD, CHF, HTN, Hyperlipidemia, Aortic stenosis CENTRAL NERVOUS SYSTEM: CVA GI: GERD Heme/Onc: Anemia NOS, Cancer (cervical) Psych: Depression Musculoskeletal: Osteoarthritis, Other (frequent falls) Rheumatologic: Gout Renal/: Chronic renal insuff Endocrine: Hypothyroidism PAST SURGICAL HISTORY Past Surgical History: Appendectomy, Other (right nephrectomy, neck surgery ) FAMILY HISTORY Family History: Hypertension SOCIAL HISTORY ALCOHOL: none Drugs: None Lives: Alone CURRENT MEDICATIONS CURRENT MEDICATIONS Current Medications Medications (Trade) Dose Ordered Sig/Dimple Route PRN Reason Start Time Stop Time Status Last Admin Dose Admin Oxycodone/ Acetaminophen (Percocet 5/325) 1 tab PRN Q4HRS PRN PO MODERATE PAIN 12/27/19 13:15 12/28/19 05:30 ALLERGIES ALLERGIES: Coded Allergies: No Known Drug Allergies (Unverified , 03/02/14) ROS Review of System 14 point ROS conducted with pertinent positives noted above in HPI PHYSICAL EXAM General: Alert, Oriented X3, Cooperative, No acute distress HEENT: Atraumatic, Mucous membr. moist/pink Lungs: Clear to auscultation Heart: Regular rate, Normal S1, Normal S2, Other (2/6 systolic murmur ) Abdomen: Soft Extremities: Other (right hand edema. Fingers with diffuse ecchymosis ) Skin: No significant lesion Neuro: Normal speech, Sensation intact Psych/Mental Status: Mental status NL, Mood NL MUSCULOSKELETAL: Osteoarthritic changes both hands VITALS/I&O VITALS/I&O: Vital Signs Date Time Temp Pulse Resp B/P (MAP) Pulse Ox O2 Delivery O2 Flow Rate FiO2 12/28/19 08:00 Room Air 12/28/19 07:00 98.1 72 14 127/54 (78) 93 98.1 I & O 12/27/19 12/27/19 12/28/19 15:00 23:00 07:00 Intake Total 120 ml 100 ml Balance 120 ml 100 ml ASSESSMENT/PLAN ASSESSMENT/PLAN 1. Traumatic mechanical fall with displaced left wrist strain. No acute fracture noted 2. Frequent falls with recent right distal radius fracture (12/23/19). Ortho considering surgical intervention 3. CAD s/p PCI/BETSEY about a year and a half ago at [facility]; on DAPT with ASA/Plavix. Clinically stable. CP free. Has not followed up with cardiology since stent placement 4. Chronic probable diastolic CHF; clinically compensated 5. Hypertension; controlled 6. Hyperlipidemia; statin 7. CKD; Cr stable 8. Hypothyroidism Recommendations Echo to assess LV systolic function for further risk stratification Lipids, TSH Continue secondary prevention. Okay to hold Plavix as stents > 6 months ago Add low-dose BB therapy Would be at least moderate risk for non-cardiac surgery Further pending above Supportive care PAUL CUTLER MD 12/28/19 1707: CARDIAC CONSULT ASSESSMENT/PLAN ASSESSMENT/PLAN Patient seen and examined Traumatic fall with orthopedic injuries as above. Being evaluated by the orthopedic service. Echocardiogram pending. Difficult historian but probable stent placement over a year ago. Okay to hold Plavix as noted above. Echocardiogram for LV function pending. Low-dose beta- destin treatment added. Pending results of echo patient be at least moderate risk for noncardiac surgery as above. Statins for hyperlipidemia. Hypertension under control. Chronic kidney disease. Thank you for allowing us to participate in the care of your patient. OPAL MCKEON APRN Dec 28, 2019 11:01 PAUL CUTLER MD Dec 28, 2019 17:07
[2019-12-28 11:44] LABS: CHOLESTEROL/HDL RATIO 3.4
--- NOTE | 2019-12-28 13:59 | PDOC ---
PROGRESS NOTES Date of Service: DATE: 12/28/19 TIME: 13:59 Chief Complaint Chief Complaint Bilateral wrist pain - unable to use her walker due to right wrist fracture, will have PT evaluate for platform walker Comminuted distal radius fracture, intra-articular extension through the radiocarpal articulation, Right wrist fracture - splinted. 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 Seen by nephrology Hyperlipidemia CAD s/p BETSEY - she has been concerned about brillinta and has not filled it recently, needs antiplatelet, will order plavix Chronic diastolic Congestive heart failure S/p right nephrectomy H/o Cervical cancer s/p TAHBSO Aortic stenosis - with falls, could be partially syncope related, will order echocardiogram Anemia - likely of chronic renal disease, will check iron stores Moderate protein calorie malnutrition - Paranoid behavior - mild cognitive impairment Dispo - Inpatient for frequent falls and inability to care for herself. She has made it clear she does not want permanent SNF placement and is amenable to acute rehab History of Present Illness History of Present Illness History of Present Illness History of Present Illness Ms Campos is an 87yo F w/ PMHx CAD s/p BETSEY, Congestive heart failure, Chronic kidney disease s/p right nephrectomy, cervical cancer s/p TAHBSO, and aortic stenosis who presents with increased weakness and frequent falls. She notes a mechanical fall resulting in a left wrist injury. Patient was here 4 days ago for a fall and a right wrist fracture. Patient has a splint on that wrist. Patient denies any dizziness, chest pain and states her legs went out on her which is not uncommon for her and she fell and landed on her left wrist. Patient describes moderate pain that radiates up to the left forearm that is worse with palpation and movement. Patient denies any focal numbness. Patient does have some limited range of motion in the wrist due to pain. Patient denies hitting her head or having loss of consciousness. Cr 1.3, albumin 3.1. Left wrist x-ray with no acute fracture. When discussing her falls and potenti al rehab she asks "would you put your mother in a senior care? I do want to be put in the home." She is asking for dinner tells me she has not eaten in 2 days. Admitted for further treatment. Vitals Vitals Vital Signs Date Time Temp Pulse Resp B/P (MAP) Pulse Ox O2 Delivery O2 Flow Rate FiO2 12/28/19 11:00 98.0 65 16 121/50 (73) 91 Room Air 98.0 Physical Exam General: Alert, Cooperative Heart: Regular rate Lungs: Wheezing Abdomen: Soft Extremities: No cyanosis, Other (The right wrist is in a splint which was not removed for the exam. There is swelling at the wrist area. The alignment appears normal. There is tenderness at the wrist. Motion is decreased but there is no evidence of specific neurovascular injury. Capillary refill is normal. Pulse is not assessable due to the tenderness of the wrist and the splint. Light touch sensation is intact. Motor function is present for the radial ulnar and median nerves. There is no tenderness at the elbow. The skin is reported intact over the fracture but there is some ecchymosis in the arm. The left wrist shows normal alignment, minimal tenderness, no focal bony tenderness, minimal swelling, no ecchymosis, and is in an Sreedhar wrap for presumed sprain.) Skin: No significant lesion, Other (ecchymosis right forearm) Assessment and Plan Assessmemt and Plan Problems Medical Problems: (1) Left wrist sprain Status: Acute Comment Review of Relevant I have reviewed the following items javan (where applicable) has been applied. Labs Laboratory Tests Test 12/26/19 17:59 12/27/19 04:20 12/27/19 07:20 White Blood Count 6.7 x10^3/uL (4.0-11.0) 7.5 x10^3/uL (4.0-11.0) Red Blood Count 3.79 x10^6/uL (3.50-5.40) 3.61 x10^6/uL (3.50-5.40) Hemoglobin 11.2 g/dL (12.0-15.5) 10.6 g/dL (12.0-15.5) Hematocrit 33.8 % (36.0-47.0) 32.2 % (36.0-47.0) Mean Corpuscular Volume 89 fL (79-100) 89 fL (79-100) Mean Corpuscular Hemoglobin 30 pg (25-35) 29 pg (25-35) Mean Corpuscular Hemoglobin Concent 33 g/dL (31-37) 33 g/dL (31-37) Red Cell Distribution Width 17.2 % (11.5-14.5) 17.3 % (11.5-14.5) Platelet Count 222 x10^3/uL (140-400) 218 x10^3/uL (140-400) Neutrophils (%) (Auto) 69 % (31-73) 66 % (31-73) Lymphocytes (%) (Auto) 20 % (24-48) 21 % (24-48) Monocytes (%) (Auto) 8 % (0-9) 8 % (0-9) Eosinophils (%) (Auto) 3 % (0-3) 4 % (0-3) Basophils (%) (Auto) 1 % (0-3) 0 % (0-3) Neutrophils # (Auto) 4.6 x10^3/uL (1.8-7.7) 5.0 x10^3/uL (1.8-7.7) Lymphocytes # (Auto) 1.3 x10^3/uL (1.0-4.8) 1.6 x10^3/uL (1.0-4.8) Monocytes # (Auto) 0.5 x10^3/uL (0.0-1.1) 0.6 x10^3/uL (0.0-1.1) Eosinophils # (Auto) 0.2 x10^3/uL (0.0-0.7) 0.3 x10^3/uL (0.0-0.7) Basophils # (Auto) 0.1 x10^3/uL (0.0-0.2) 0.0 x10^3/uL (0.0-0.2) Sodium Level 141 mmol/L (136-145) 141 mmol/L (136-145) Potassium Level 3.9 mmol/L (3.5-5.1) 3.8 mmol/L (3.5-5.1) Chloride Level 104 mmol/L (98-107) 104 mmol/L (98-107) Carbon Dioxide Level 30 mmol/L (21-32) 26 mmol/L (21-32) Anion Gap 7 (6-14) 11 (6-14) Blood Urea Nitrogen 24 mg/dL (7-20) 23 mg/dL (7-20) Creatinine 1.3 mg/dL (0.6-1.0) 1.4 mg/dL (0.6-1.0) Estimated GFR (Cockcroft-Gault) 38.7 35.5 BUN/Creatinine Ratio 18 (6-20) Glucose Level 83 mg/dL (70-99) 83 mg/dL (70-99) Calcium Level 9.0 mg/dL (8.5-10.1) 8.4 mg/dL (8.5-10.1) Total Bilirubin 0.6 mg/dL (0.2-1.0) Aspartate Amino Transf (AST/SGOT) 21 U/L (15-37) Alanine Aminotransferase (ALT/SGPT) 16 U/L (14-59) Alkaline Phosphatase 110 U/L (46-116) Total Protein 7.1 g/dL (6.4-8.2) Albumin 3.1 g/dL (3.4-5.0) Albumin/Globulin Ratio 0.8 (1.0-1.7) Triglycerides Level 120 mg/dL (0-150) Cholesterol Level 157 mg/dL (0-200) LDL Cholesterol, Calculated 87 mg/dL (0-100) VLDL Cholesterol, Calculated 24 mg/dL (0-40) Non-HDL Cholesterol Calculated 111 mg/dL (0-129) HDL Cholesterol 46 mg/dL (40-60) Cholesterol/HDL Ratio 3.4 Thyroid Stimulating Hormone (TSH) 2.320 uIU/mL (0.358-3.74) Medications Current Medications Tramadol HCl (Ultram) 50 mg 1X ONCE PO Last administered on 12/26/19at 13:37; Start 12/26/19 at 13:30; Stop 12/26/19 at 13:31; Status DC Ondansetron HCl (Zofran) 4 mg PRN Q8HRS PRN IV NAUSEA/VOMITING; Start 12/26/19 at 16:45; Stop 12/26/19 at 20:11; Status DC Ondansetron HCl (Zofran) 4 mg PRN Q4HRS PRN IV NAUSEA/VOMITING; Start 12/26/19 at 20:15 Acetaminophen (Tylenol) 650 mg PRN Q6HRS PRN PO TEMP > 100.3'F; Start 12/26/19 at 20:15 Allopurinol (Zyloprim) 100 mg DAILY PO Last administered on 12/28/19 07:53; Start 12/27/19 at 09:00 Aspirin (Ecotrin) 81 mg DAILY08 PO Last administered on 12/28/19 07:53; Start 12/27/19 at 08:00 Levothyroxine Sodium (Synthroid) 88 mcg DAILY PO Last administered on 12/28/19 07:53; Start 12/27/19 at 09:00 Pantoprazole Sodium (Protonix) 40 mg DAILY07 PO Last administered on 12/28/19 07:53; Start 12/27/19 at 07:00 Citalopram Hydrobromide (CeleXA) 40 mg DAILY PO Last administered on 12/28/19 07:53; Start 12/27/19 at 09:00 Simvastatin (Zocor) 80 mg QHS PO Last administered on 12/27/19at 20:52; Start 12/26/19 at 21:00 Enoxaparin Sodium (Lovenox 30mg Syringe) 30 mg Q24H SQ ; Start 12/27/19 at 09:00 Clopidogrel Bisulfate (Plavix) 75 mg DAILYWBKFT PO Last administered on 12/28/19 07:53; Start 12/27/19 at 08:00 Tramadol HCl (Ultram) 50 mg PRN Q6HRS PRN PO MILD PAIN 1-3 Last administered on 12/27/19 09:19; Start 12/26/19 at 20:15 Fentanyl Citrate (Fentanyl 2ml Vial) 25 mcg PRN Q2HR PRN IVP PAIN Last administered on 12/27/19 02:18; Start 12/27/19 at 02:15 Oxycodone/ Acetaminophen (Percocet 5/325) 1 tab PRN Q4HRS PRN PO MODERATE PAIN Last administered on 12/28/19 05:30; Start 12/27/19 at 13:15 Oxycodone/ Acetaminophen (Percocet 5/325) 2 tab PRN Q4HRS PRN PO SEVERE PAIN; Start 12/27/19 at 13:30 Active Scripts Active Oxford 5-325 Tablet (Acetaminophen/Hydrocodone Bitart) 1 Each Tablet 1-2 Each PO PRN Q6HRS PRN as needed for pain Ibuprofen 600 Mg Tablet 600 Mg PO PRN Q6HRS PRN take with food or milk Keflex (Cephalexin) 500 Mg Capsule 500 Mg PO QID 7 Days Culturelle (Lactobacillus Rhamnosus Gg) 1 Each Cap.sprink 1 Cap PO BID 7 Days Reported Brilinta (Ticagrelor) 90 Mg Tablet 90 Mg PO BID Tova-D 24 Hour Tablet (Fexofenadine/Pseudoephedrine) 1 Each Tab.er.24h 1 Tab PO DAILY Levothyroxine Sodium 88 Mcg Tablet 88 Mcg PO DAILY Citalopram Hbr (Citalopram Hydrobromide) 40 Mg Tablet 40 Mg PO DAILY Allopurinol 100 Mg Tablet 100 Mg PO DAILY Pantoprazole Sodium (Pantoprazole Sodium) 40 Mg Tablet. 40 Mg PO DAILY Aspir-Low (Aspirin) 81 Mg Tablet. 1 Tab PO DAILY Simvastatin 80 Mg Tablet 1 Tab PO QHS Furosemide 40 Mg Tablet 1 Tab PO DAILY Vitals/I & O Vital Sign - Last 24 Hours 12/27/19 12/27/19 12/27/19 12/27/19 14:47 15:00 19:00 20:00 Temp 97.9 97.8 97.9 97.8 Pulse 86 75 Resp 16 16 B/P (MAP) 140/72 (94) 133/56 (81) Pulse Ox 96 98 O2 Delivery Room Air Room Air Room Air Room Air 12/27/19 12/27/19 12/27/19 12/28/19 20:53 21:53 23:00 03:00 Temp 97.9 97.5 97.9 97.5 Pulse 81 76 Resp 16 16 16 16 B/P (MAP) 139/55 (83) 143/59 (87) Pulse Ox 98 98 96 95 O2 Delivery Room Air Room Air Room Air Room Air 12/28/19 12/28/19 12/28/19 12/28/19 05:30 06:30 07:00 08:00 Temp 98.1 98.1 Pulse 72 Resp 16 16 14 B/P (MAP) 127/54 (78) Pulse Ox 95 95 93 O2 Delivery Room Air Room Air Room Air Room Air 12/28/19 11:00 Temp 98.0 98.0 Pulse 65 Resp 16 B/P (MAP) 121/50 (73) Pulse Ox 91 O2 Delivery Room Air Intake and Output 12/27/19 12/27/19 12/28/19 15:00 23:00 07:00 Intake Total 120 ml 100 ml Balance 120 ml 100 ml Justicifation of Admission Dx: Justifications for Admission: Justification of Admission Dx: N/A HYUN DOOLEY MD Dec 28, 2019 13:59
[2019-12-28 15:00] VITALS: BP 118/55
[2019-12-28 19:00] VITALS: BP 129/62
[2019-12-28] MEDS: SIMVASTATIN 40 MG TABLET. PO SCH (20:51)
[2019-12-28] MEDS: METOPROLOL TART IMMED RELEASE 25 MG TABLET. PO SCH (20:51)
[2019-12-28 23:05] VITALS: BP 141/48
[2019-12-29 03:00] VITALS: BP 132/57
[2019-12-29] MEDS: oxyCODONE/APAP 5/325 1 TAB TABLET PO PRN ×3 (03:37→21:28)
[2019-12-29 07:39] VITALS: BP 121/53
[2019-12-29] MEDS: PANTOPRAZOLE 40 MG TABLET.DR. PO SCH (08:32)
[2019-12-29] MEDS: CITALOPRAM 20 MG TABLET. PO SCH (08:33)
[2019-12-29] MEDS: LEVOTHYROXINE 88 MCG TABLET PO SCH (08:33)
[2019-12-29] MEDS: ASPIRIN ENTERIC COATED 81 MG TABLET.DR. PO SCH (08:33)
[2019-12-29] MEDS: ENOXAPARIN 30 MG/0.3 ML SYRINGE. SQ SCH (08:33)
[2019-12-29] MEDS: ALLOPURINOL 100 MG TABLET. PO SCH (08:33)
[2019-12-29] MEDS: METOPROLOL TART IMMED RELEASE 25 MG TABLET. PO SCH ×2 (08:33→21:27)
--- NOTE | 2019-12-29 09:23 | CARD ---
MR#: [id number] Date of Study: 12/28/2019 Ordering Physician: OPAL MCKEON, Referring Physician: OPAL MCKEON, Tech: Lana Kamara APPROVED REPORT EXAM: Two-dimensional and M-mode echocardiogram with Doppler and color Doppler. Other Information Quality : FairHR: 77bpm Technically limited study due to body habitus. INDICATION Pre-Op Murmur Congestive Heart Failure RISK FACTORS Hypertension Hyperlipidemia 2D DIMENSIONS Left Atrium(2D)2.4 (1.6-4.0cm)IVSd0.9 (0.7-1.1cm) Aortic Root(2D)2.5 (2.0-3.7cm)LVDd2.6 (3.9-5.9cm) LVOT Diameter1.9 (1.8-2.4cm)PWd0.9 (0.7-1.1cm) LVDs1.5 (2.5-4.0cm)FS (%) 22.5 % SV6.1 mlLVEF(%)48.2 (>50%) Aortic Valve AoV Peak Hayden.214.5cm/sAoV VTI48.0cm AO Peak GR.18.4mmHgLVOT VTI 22.18cm AO Mean GR.11mmHg Mitral Valve MV E Velocity0.0cm/sMV E Peak Gr.7mmHg MV E Mean Gr.3mmHg TDI Lateral E' P. V7.40cm/sMedial E' P. V7.21cm/s E/Lateral E'0.0E/Medial E'0.0 Tricuspid Valve TR P. [id number] [id number] TR Peak Gr.[id number] LEFT VENTRICLE The left ventricle is normal size. There is normal left ventricular wall thickness. The left ventricu lar systolic function is normal and the ejection fraction is within normal range. The Ejection Fracti on is 55-60%. There is normal LV segmental wall motion. Transmitral Doppler flow pattern is Grade I-a bnormal relaxation pattern. RIGHT VENTRICLE The right ventricle is borderline dilated. There is normal right ventricular wall thickness. The righ t ventricular systolic function is normal. ATRIA The left atrium size is normal. The right atrium size is normal. The interatrial septum is intact wit h no evidence for an atrial septal defect or patent foramen ovale as noted on 2-D or Doppler imaging. AORTIC VALVE Not well visualized. Doppler and Color Flow revealed no significant aortic regurgitation. Calculated aortic valve area is 1.39 cm2 with maximum pressure gradient of 18 mmHg and mean pressure gradient of 11 mmHg. There is no significant aortic valvular stenosis. MITRAL VALVE The mitral valve is normal in structure and function. There is no evidence of mitral valve prolapse. There is no mitral valve stenosis. Doppler and Color-flow revealed trace mitral regurgitation. TRICUSPID VALVE The tricuspid valve is normal in structure and function. Doppler and Color Flow revealed trace tricus pid regurgitation with an estimated PAP of 40 mmHg. There is no tricuspid valve stenosis. PULMONIC VALVE The pulmonic valve is not well visualized. Doppler and Color Flow revealed no pulmonic valvular regur gitation. There is no pulmonic valvular stenosis. GREAT VESSELS The aortic root is normal in size. The IVC is normal in size and collapses >50% with inspiration. PERICARDIAL EFFUSION There is no evidence of significant pericardial effusion. Critical Notification Critical Value: No <Conclusion> The left ventricular systolic function is normal and the ejection fraction is within normal range. Th e Ejection Fraction is 55-60%. There is normal LV segmental wall motion. Doppler and Color Flow revealed trace tricuspid regurgitation with an estimated PAP of 40 mmHg. Signed by : Alexis Mcgee, Electronically Approved : 12/29/2019 09:23:06
--- NOTE | 2019-12-29 10:37 | PDOC ---
Provider Note Provider Note She is still having a lot of wrist pain. We discussed the risks benefits and alternatives of surgical treatment. I reviewed her echocardiogram which showed normal ejection fraction and there was no mention of aortic stenosis. I think she could have surgery safely and spoke to her about the potential risks of infection neurovascular injury need for hardware removal tendon injury bleeding stiffness or other potential surgical or anesthetic complications. The benefit would be improved pain control, likely improved long-term function, earlier range of motion. She agrees with the plan for surgery today. Justicifation of Admission Dx: Justifications for Admission: Justification of Admission Dx: N/A ADDIE PINA MD Dec 29, 2019 10:37
[2019-12-29] MEDS ORDERED: IV RINGERS,LACTATED 1000ML 1,000 ML IV SCH (10:51)
--- NOTE | 2019-12-29 10:56 | PDOC ---
PROGRESS NOTES Date of Service: DATE: 12/29/19 TIME: 10:56 Chief Complaint Chief Complaint IMPRESSION Bilateral wrist pain - unable to use her walker due to right wrist fracture, will have PT evaluate for platform walker Comminuted distal radius fracture, intra-articular extension through the radiocarpal articulation, Right wrist fracture - splinted. 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 Seen by nephrology Hyperlipidemia CAD s/p BETSEY - she has been concerned about brillinta and has not filled it recently, needs antiplatelet, will order plavix Chronic diastolic Congestive heart failure S/p right nephrectomy H/o Cervical cancer s/p TAHBSO Aortic stenosis - with falls, could be partially syncope related, will order echocardiogram ECHO 12/27 The left ventricular systolic function is normal and the ejection fraction is within normal range. The Ejection Fraction is 55-60%. There is normal LV segmental wall motion. Doppler and Color Flow revealed trace tricuspid regurgitation with an estimated PAP of 40 mmHg. Anemia - likely of chronic renal disease, will check iron stores Moderate protein calorie malnutrition - Paranoid behavior - mild cognitive impairment 38 MIN PT EXAM, CHART REVIEW, > 50% OF TIME SPENT WITH EXAM, CHART REVIEW, PT CARE COORDINATION SURGERY 12/28 PM Dispo - Inpatient for frequent falls and inability to care for herself. She has made it clear she does not want permanent SNF placement and is amenable to acute rehab History of Present Illness History of Present Illness History of Present Illness History of Present Illness Ms Campos is an 87yo F w/ PMHx CAD s/p BETSEY, Congestive heart failure, Chronic kidney disease s/p right nephrectomy, cervical cancer s/p TAHBSO, and aortic stenosis who presents with increased weakness and frequent falls. She notes a mechanical fall resulting in a left wrist injury. Patient was here 4 days ago for a fall and a right wrist fracture. Patient has a splint on that wrist. Patient denies any dizziness, chest pain and states her legs went out on her which is not uncommon for her and she fell and landed on her left wrist. Patient describes moderate pain that radiates up to the left forearm that is worse with palpation and movement. Patient denies any focal numbness. Patient does have some limited range of motion in the wrist due to pain. Patient denies hitting her head or having loss of consciousness. Cr 1.3, albumin 3.1. Left wrist x-ray with no acute fracture. When discussing her falls and potential rehab she asks "would you put your mother in a [place] [facility] [place] facility? I do want to be put in the home." She is asking for dinner tells me she has not eaten in 2 days. Admitted for further treatment. Vitals Vitals Vital Signs Date Time Temp Pulse Resp B/P (MAP) Pulse Ox O2 Delivery O2 Flow Rate FiO2 12/29/19 09:36 Room Air 12/29/19 08:33 72 121/53 12/29/19 07:39 98.3 18 97 98.3 Physical Exam General: Alert, Oriented X3, Cooperative, No acute distress Heart: Regular rate, Normal S1, Normal S2, Other (2/6 systolic murmur ) Lungs: Wheezing Abdomen: Soft Extremities: Other (right hand edema. Fingers with diffuse ecchymosis ) Skin: No significant lesion Labs LABS CHEST AP ONLY History: Reason: WEAKNESS, FALLS 430 / Spl. Instructions: / History: Comparison: November 26, 2018 Findings: No consolidation or pleural effusion. Normal heart size. No pneumothorax. Bilateral glenohumeral DJD, right greater than left. Impression: 1. No acute cardiopulmonary process. Electronically signed by: Cuate Flores DO (12/27/2019 3:31 PM) [facility] DICTATED and SIGNED BY: CUATE FLORES DO DATE: 12/27/19 1531 APPROVED REPORT EXAM: Two-dimensional and M-mode echocardiogram with Doppler and color Doppler. Other Information Quality : Fair HR: 77bpm Technically limited study due to body habitus. INDICATION Pre-Op Murmur Congestive Heart Failure RISK FACTORS Hypertension Hyperlipidemia 2D DIMENSIONS Left Atrium(2D) 2.4 (1.6-4.0cm) IVSd 0.9 (0.7-1.1cm) Aortic Root(2D) 2.5 (2.0-3.7cm) LVDd 2.6 (3.9-5.9cm) LVOT Diameter 1.9 (1.8-2.4cm) PWd 0.9 (0.7-1.1cm) LVDs 1.5 (2.5-4.0cm) FS (%) 22.5 % SV 6.1 ml LVEF(%) 48.2 (>50%) Aortic Valve AoV Peak Hayden. 214.5cm/s AoV VTI 48.0cm AO Peak GR. 18.4mmHg LVOT VTI 22.18cm AO Mean GR. 11mmHg Mitral Valve MV E Velocity 0.0cm/s MV E Peak Gr. 7mmHg MV E Mean Gr. 3mmHg TDI Lateral E' P. V 7.40cm/s Medial E' P. V 7.21cm/s E/Lateral E' 0.0 E/Medial E' 0.0 Tricuspid Valve TR P. Velocity 275cm/s RAP ESTIMATE 3mmHg TR Peak Gr. 37mmHg RVSP 40mmHg LEFT VENTRICLE The left ventricle is normal size. There is normal left ventricular wall thickness. The left ventricular systolic function is normal and the ejection fraction is within normal range. The Ejection Fraction is 55-60%. There is normal LV segmental wall motion. Transmitral Doppler flow pattern is Grade I- abnormal relaxation pattern. RIGHT VENTRICLE The right ventricle is borderline dilated. There is normal right ventricular wall thickness. The right ventricular systolic function is normal. ATRIA The left atrium size is normal. The right atrium size is normal. The interatrial septum is intact with no evidence for an atrial septal defect or patent foramen ovale as noted on 2-D or Doppler imaging. AORTIC VALVE Not well visualized. Doppler and Color Flow revealed no significant aortic regurgitation. Calculated aortic valve area is 1.39 cm2 with maximum pressure gradient of 18 mmHg and mean pressure gradient of 11 mmHg. There is no significant aortic valvular stenosis. MITRAL VALVE The mitral valve is normal in structure and function. There is no evidence of mitral valve prolapse. There is no mitral valve stenosis. Doppler and Color-flow revealed trace mitral regurgitation. TRICUSPID VALVE The tricuspid valve is normal in structure and function. Doppler and Color Flow revealed trace tricuspid regurgitation with an estimated PAP of 40 mmHg. There is no tricuspid valve stenosis. PULMONIC VALVE The pulmonic valve is not well visualized. Doppler and Color Flow revealed no pulmonic valvular regurgitation. There is no pulmonic valvular stenosis. GREAT VESSELS The aortic root is normal in size. The IVC is normal in size and collapses >50% with inspiration. PERICARDIAL EFFUSION There is no evidence of significant pericardial effusion. Critical Notification Critical Value: No <Conclusion> The left ventricular systolic function is normal and the ejection fraction is within normal range. The Ejection Fraction is 55-60%. There is normal LV segmental wall motion. Doppler and Color Flow revealed trace tricuspid regurgitation with an estimated PAP of 40 mmHg. Signed by : Reva Mcgee, Electronically Approved : 12/29/2019 09:23:06 DICTATED and SIGNED BY: ERVA MCGEE MD DATE: 12/28/19 183 Assessment and Plan Assessmemt and Plan Problems Medical Problems: (1) Left wrist sprain Status: Acute Comment Review of Relevant I have reviewed the following items javan (where applicable) has been applied. Labs Laboratory Tests Test 12/27/19 13:10 Coronavirus (PCR) Not detected (Not Detected) Medications Current Medications Tramadol HCl (Ultram) 50 mg 1X ONCE PO Last administered on 12/26/19at 13:37; Start 12/26/19 at 13:30; Stop 12/26/19 at 13:31; Status DC Ondansetron HCl (Zofran) 4 mg PRN Q8HRS PRN IV NAUSEA/VOMITING; Start 12/26/19 at 16:45; Stop 12/26/19 at 20:11; Status DC Ondansetron HCl (Zofran) 4 mg PRN Q4HRS PRN IV NAUSEA/VOMITING; Start 12/26/19 at 20:15 Acetaminophen (Tylenol) 650 mg PRN Q6HRS PRN PO TEMP > 100.3'F Last administered on 12/29/19at 05:21; Start 12/26/19 at 20:15 Allopurinol (Zyloprim) 100 mg DAILY PO Last administered on 12/29/19 08:33; Start 12/27/19 at 09:00 Aspirin (Ecotrin) 81 mg DAILY08 PO Last administered on 12/29/19 08:33; Start 12/27/19 at 08:00 Levothyroxine Sodium (Synthroid) 88 mcg DAILY PO Last administered on 12/29/19at 08:33; Start 12/27/19 at 09:00 Pantoprazole Sodium (Protonix) 40 mg DAILY07 PO Last administered on 12/29/19at 08:32; Start 12/27/19 at 07:00 Citalopram Hydrobromide (CeleXA) 40 mg DAILY PO Last administered on 12/29/19at 08:33; Start 12/27/19 at 09:00 Simvastatin (Zocor) 80 mg QHS PO Last administered on 12/27/19at 20:52; Start 12/26/19 at 21:00 Enoxaparin Sodium (Lovenox 30mg Syringe) 30 mg Q24H SQ ; Start 12/27/19 at 09:00 Clopidogrel Bisulfate (Plavix) 75 mg DAILYWBKFT PO Last administered on 12/28/19at 07:53; Start 12/27/19 at 08:00; Stop 12/28/19 at 16:41; Status DC Tramadol HCl (Ultram) 50 mg PRN Q6HRS PRN PO MILD PAIN 1-3 Last administered on 12/27/19at 09:19; Start 12/26/19 at 20:15 Fentanyl Citrate (Fentanyl 2ml Vial) 25 mcg PRN Q2HR PRN IVP PAIN Last administered on 12/27/19at 02:18; Start 12/27/19 at 02:15 Oxycodone/ Acetaminophen (Percocet 5/325) 1 tab PRN Q4HRS PRN PO MODERATE PAIN Last administered on 12/29/19at 08:36; Start 12/27/19 at 13:15 Oxycodone/ Acetaminophen (Percocet 5/325) 2 tab PRN Q4HRS PRN PO SEVERE PAIN; Start 12/27/19 at 13:30 Metoprolol Tartrate (Lopressor) 12.5 mg BID PO Last administered on 12/29/19at 08:33; Start 12/28/19 at 21:00 Fentanyl Citrate (Fentanyl 2ml Vial) 25 mcg PRN Q5MIN PRN IV MILD PAIN 1-3; Start 12/29/19 at 11:00; Stop 12/30/19 at 10:59 Fentanyl Citrate (Fentanyl 2ml Vial) 50 mcg PRN Q5MIN PRN IV MODERATE TO SEVERE PAIN; Start 12/29/19 at 11:00; Stop 12/30/19 at 10:59 Morphine Sulfate (Morphine Sulfate) 1 mg PRN Q10MIN PRN IV SEVERE PAIN 7-10; Start 12/29/19 at 11:00; Stop 12/30/19 at 10:59 Ringer's Solution 1,000 ml @ 30 mls/hr Q24H IV ; Start 12/29/19 at 10:51; Stop 12/29/19 at 22:50 Hydromorphone HCl (Dilaudid) 0.5 mg PRN Q10MIN PRN IV SEV PAIN, Second choice; Start 12/29/19 at 11:00; Stop 12/30/19 at 10:59 Prochlorperazine Edisylate (Compazine) 5 mg PACU PRN PRN IV NAUSEA, MRX1; Start 12/29/19 at 11:00; Stop 12/30/19 at 10:59 Active Scripts Active Alva 5-325 Tablet (Acetaminophen/Hydrocodone Bitart) 1 Each Tablet 1-2 Each PO PRN Q6HRS PRN as needed for pain Ibuprofen 600 Mg Tablet 600 Mg PO PRN Q6HRS PRN take with food or milk Keflex (Cephalexin) 500 Mg Capsule 500 Mg PO QID 7 Days Culturelle (Lactobacillus Rhamnosus Gg) 1 Each Cap.sprink 1 Cap PO BID 7 Days Reported Brilinta (Ticagrelor) 90 Mg Tablet 90 Mg PO BID Tova-D 24 Hour Tablet (Fexofenadine/Pseudoephedrine) 1 Each Tab.er.24h 1 Tab PO DAILY Levothyroxine Sodium 88 Mcg Tablet 88 Mcg PO DAILY Citalopram Hbr (Citalopram Hydrobromide) 40 Mg Tablet 40 Mg PO DAILY Allopurinol 100 Mg Tablet 100 Mg PO DAILY Pantoprazole Sodium (Pantoprazole Sodium) 40 Mg Tablet.dr 40 Mg PO DAILY Aspir-Low (Aspirin) 81 Mg Tablet.dr 1 Tab PO DAILY Simvastatin 80 Mg Tablet 1 Tab PO QHS Furosemide 40 Mg Tablet 1 Tab PO DAILY Vitals/I & O Vital Sign - Last 24 Hours 12/28/19 12/28/19 12/28/19 12/28/19 11:00 15:00 16:54 17:54 Temp 98.0 98.4 98.0 98.4 Pulse 65 71 Resp 16 16 B/P (MAP) 121/50 (73) 118/55 (76) Pulse Ox 91 96 O2 Delivery Room Air Room Air Room Air Room Air 12/28/19 12/28/19 12/28/19 12/28/19 19:00 20:00 20:51 21:57 Temp 98.1 98.1 Pulse 71 71 Resp 18 B/P (MAP) 129/62 (84) 129/62 Pulse Ox 94 O2 Delivery Room Air Room Air Room Air 12/28/19 12/28/19 12/29/19 12/29/19 23:00 23:05 03:00 03:37 Temp 98.2 98.1 98.2 98.1 Pulse 75 74 Resp 19 22 B/P (MAP) 141/48 (79) 132/57 (82) Pulse Ox 95 96 O2 Delivery Room Air Room Air Room Air Room Air 12/29/19 12/29/19 12/29/19 12/29/19 04:37 07:39 08:00 08:33 Temp 98.3 98.3 Pulse 72 72 Resp 18 B/P (MAP) 121/53 (75) 121/53 Pulse Ox 97 O2 Delivery Room Air Room Air Room Air 12/29/19 12/29/19 08:36 09:36 O2 Delivery Room Air Room Air Intake and Output 12/28/19 12/28/19 12/29/19 15:00 23:00 07:00 Intake Total 600 ml 360 ml Output Total 0 ml Balance 600 ml 360 ml 0 ml Justicifation of Admission Dx: Justifications for Admission: Justification of Admission Dx: N/A KACIE ECHEVERRIA MD Dec 29, 2019 10:56
[2019-12-29] MEDS ORDERED: HYDROmorphone 2 MG/ML VIAL IV PRN (11:00)
[2019-12-29] MEDS ORDERED: fentaNYL PF VIAL 100 MCG/2 ML VIAL IV PRN (11:00)
[2019-12-29] MEDS ORDERED: MORPHINE SULFATE 2 MG/ML VIAL. IV PRN (11:00)
[2019-12-29] MEDS ORDERED: PROCHLORPERAZINE 10 MG/2 ML VIAL. IV PRN (11:00)
[2019-12-29 11:46] VITALS: BP 123/55
[2019-12-29] MEDS ORDERED: fentaNYL PF VIAL 100 MCG/2 ML VIAL ONE ×2 (14:02→15:58)
[2019-12-29] MEDS ORDERED: PROPOFOL 10 MG/ML (20ML) VIAL. IV ONE (14:04)
[2019-12-29] MEDS ORDERED: LIDOCAINE 2% PF 5 ML VIAL. ONE (14:04)
[2019-12-29] MEDS ORDERED: BUPIVACAINE-EPI 0.25%-1:200000 MPF 30 ML VIAL. ONE (14:24)
[2019-12-29] MEDS ORDERED: SEVOFLURANE 31 TO 60 MINUTES. IH ONE (14:48)
[2019-12-29] MEDS ORDERED: DEXAMETHASONE SOD PHOS 4 MG/ML VIAL ONE (14:48)
[2019-12-29] MEDS ORDERED: ONDANSETRON PF 4 MG/2 ML VIAL. ONE (14:48)
[2019-12-29] MEDS ORDERED: PHENYLEPHRINE in 0.9% NACL PF 1 MG/10 ML SYRINGE. IV ONE (15:06)
--- NOTE | 2019-12-29 15:33 | PDOC4 ---
Operative Note Operative Note Date of Procedure: December 29, 2019 Preoperative diagnosis: Other intraarticular fracture of lower end of right radius, initial encounter for closed fracture 2019 ICD-10-CM Diagnosis Code S52.571A Postoperative diagnosis: Other intraarticular fracture of lower end of right radius, initial encounter for closed fracture 2019 ICD-10-CM Diagnosis Code S52.571A Procedure: Right wrist, open treatment of distal radial intra-articular fracture with internal fixation of 3 or more fragments CPT 87219 Surgeon: Addie Ghosh MD. Asst.: Jerel CHAND Anesthesia Type: General EBL: 50 mL Specimens: none Drains: none Complications: none Tourniquet time: 22 minutes t 250 mm Hg Implant Company: [employer] VariAx 2 Distal Radius Plating System INDICATION FOR PROCEDURE: The patient is an 89-year-old who fell and had a displaced right distal radius fracture. There is intra-articular involvement. We talked about potential risks of surgery such as bleeding, infection, stiffness, need for hardware removal or other potential surgical or anesthetic complications. The patient stated understanding of the risks, benefits and alternatives. Written consent was obtained and she desired to proceed with surgery. PROCEDURE IN DETAIL: The patient was identified in the preoperative holding area. The correct right wrist was marked by me. The patient was taken to the operating room, where a general anesthetic was used. Preoperative antibiotics were given intravenously. A timeout procedure was performed. Tourniquet was used on the upper right arm. The limb was prepared in sterile fashion with ChloraPrep, and sterile drapes were applied. An Esmarch bandage was used to exsanguinate the limb and the tourniquet was inflated. The volar approach of Pablo was used distally. Sharp dissection was used and Bovie electrocautery was used as for hemostasis. The flexor carpi radialis tendon was retracted ulnarly to protect the median nerve. The brachioradialis was retracted radially to protect the radial artery. A Weitlaner retractor was also placed. Subperiosteal dissection of the pronator quadratus was performed after an L incision was made and the muscle was reflected across the fracture site. The fracture was easily identified but markedly displaced, comminuted and unstable. This fracture is comminuted and has intra-articular fracture components. Fracture hematoma was cleared with curettes, rongeurs, and irrigation. Preliminary stabilization was performed with Bebe wires. I used a small image intensifier fluoroscopy unit throughout the case and interpreted all of the images myself. I applied a volar plate, placed a single nonlocking screw to compress the plate to the bone, and again checked the position of the plate on the image intensifier. I adjusted the plate as needed for satisfactory alignment and fixation. Next, I placed locking screws distally and locking screws proximally and I confirmed the reduction with the image intensifier. The K-wires were removed. After satisfactory reduction and satisfactory fixation with all the screws, final images were taken. Copious irrigation was used. The tourniquet was released and Bovie electrocautery was used for hemostasis. Bupivacaine 0.25% with epinephrine was injected. The incision was closed with #3-0 Vicryl in the subcutaneous tissues by me, and #3-0 Prolene in the skin by my assistant superintendent. Xeroform and a sterile dressing and a volar splint were applied by my assistant superintendent. Needle and sponge counts were correct. There were no apparent complications ADDIE GHOSH MD Dec 29, 2019 15:33
[2019-12-29] MEDS: fentaNYL PF VIAL 100 MCG/2 ML VIAL IV PRN ×4 (16:00→16:38)
[2019-12-29] MEDS ORDERED: PROCHLORPERAZINE 10 MG/2 ML VIAL. ONE (16:13)
[2019-12-29] MEDS ORDERED: MORPHINE SULFATE 2 MG/ML VIAL. ONE (17:07)
[2019-12-29 19:00] VITALS: BP 134/71
--- NOTE | 2019-12-29 21:01 | PDOC ---
F/U PHYSCH PROG NOTE Subjective: Patient is seen for routine follow-up. Progress is reviewed with nursing staff as well. No major emotional or behavioral breakdown reported overnight. Today, she appears confused and somewhat disorganized. She is under the impression that she is at home and people including this service writer advisor often come to visit her vo luntarily. Denies suicidal or homicidal thoughts. Denies auditory or visual hallucinations. No evidence of tasia or hypomania. Objective: 14 point review of system is otherwise negative except for stated in subjective history. Vital Signs: Vital Signs Date Time Temp Pulse Resp B/P (MAP) Pulse Ox O2 Delivery O2 Flow Rate FiO2 12/29/19 19:00 97.4 80 19 134/71 (92) 97 Room Air 97.4 12/29/19 17:25 3.0 Medications: Current Medications Medications (Trade) Dose Ordered Sig/Dimple Start Time Stop Time Status Last Admin Dose Admin Acetaminophen (Tylenol) 650 mg PRN Q6HRS PRN 12/26/19 20:15 12/29/19 05:21 650 MG Allopurinol (Zyloprim) 100 mg DAILY 12/27/19 09:00 12/29/19 08:33 100 MG Aspirin (Ecotrin) 81 mg DAILY08 12/27/19 08:00 12/29/19 08:33 81 MG Bupivacaine HCl/ Epinephrine Bitart (Sensorcaine-Epi 0.25%-1:148608 Mpf) 30 ml STK-MED ONCE 12/29/19 14:24 12/29/19 14:25 DC 12/29/19 15:09 30 ML Cefazolin Sodium/ Dextrose 50 ml @ 100 mls/hr 1X PREOP PRN 12/29/19 14:15 12/29/19 14:41 100 MLS/HR Citalopram Hydrobromide (CeleXA) 40 mg DAILY 12/27/19 09:00 12/29/19 08:33 40 MG Clopidogrel Bisulfate (Plavix) 75 mg DAILYWBKFT 12/27/19 08:00 12/28/19 16:41 DC 12/28/19 07:53 75 MG Dexamethasone Sodium Phosphate (Decadron) 4 mg STK-MED ONCE 12/29/19 14:48 12/29/19 14:48 DC Enoxaparin Sodium (Lovenox 30mg Syringe) 30 mg Q24H 12/27/19 09:00 Fentanyl Citrate (Fentanyl 2ml Vial) 100 mcg STK-MED ONCE 12/29/19 15:58 12/29/19 15:58 DC Hydromorphone HCl (Dilaudid) 0.5 mg PRN Q10MIN PRN 12/29/19 11:00 12/30/19 10:59 Levothyroxine Sodium (Synthroid) 88 mcg DAILY 12/27/19 09:00 12/29/19 08:33 88 MCG Lidocaine HCl (Lidocaine Pf 2% Vial) 5 ml STK-MED ONCE 12/29/19 14:04 12/29/19 14:05 DC Metoprolol Tartrate (Lopressor) 12.5 mg BID 12/28/19 21:00 12/29/19 08:33 12.5 MG Morphine Sulfate (Morphine Sulfate) 2 mg STK-MED ONCE 12/29/19 17:07 12/29/19 17:07 DC Ondansetron HCl (Zofran) 4 mg STK-MED ONCE 12/29/19 14:48 12/29/19 14:48 DC Oxycodone/ Acetaminophen (Percocet 5/325) 2 tab PRN Q4HRS PRN 12/27/19 13:30 Pantoprazole Sodium (Protonix) 40 mg DAILY07 12/27/19 07:00 12/29/19 08:32 40 MG Phenylephrine HCl (PHENYLEPHRINE in 0.9% NACL PF) 1 mg STK-MED ONCE 12/29/19 15:06 12/29/19 15:06 DC Prochlorperazine Edisylate (Compazine) 10 mg STK-MED ONCE 12/29/19 16:13 12/29/19 16:13 DC Propofol (Diprivan) 200 mg STK-MED ONCE 12/29/19 14:04 12/29/19 14:05 DC Ringer's Solution 1,000 ml @ 30 mls/hr Q24H 12/29/19 10:51 12/29/19 22:50 12/29/19 14:20 30 MLS/HR Sevoflurane (Ultane) 30 ml STK-MED ONCE 12/29/19 14:48 12/29/19 14:48 DC Simvastatin (Zocor) 80 mg QHS 12/26/19 21:00 12/27/19 20:52 80 MG Tramadol HCl (Ultram) 50 mg PRN Q6HRS PRN 12/26/19 20:15 12/27/19 09:19 50 MG Physical Exam: Mental Status Exam: Elderly female, appears her stated age Cooperative and interactive but has severe hard of hearing Disoriented Thought processes not linear Denies suicidal or homicidal thoughts. Denies auditory or visual hallucinations. No abnormal perception noted Mood is down Affect is dysthymic Insight fair judgment fair impulse control fair Attention span and concentration fair Recent memory impaired Remote memory intact Physical Exam: Refer to Physician's note. 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 Rule out major neurocognitive disorder Unspecified delirium Rule out delirium,/metabolic encephalopathy. Assessment: She is a pleasant female struggling with memory issues and paranoid behavior. Apparently, during conversation no paranoia, irritability, or agitation noted. However, symptomatology and history is consistent with unspecified delirium. Delirium is a fluctuating process which needs to be monitored continuously. In absence of significant behavioral disturbances, or significant paranoia will avoid antipsychotics due to the risk of adverse drug reaction in octogenarian population. However in case of severe behavioral disturbances or significant Paranoia interfering with decision making, a trial of antipsychotics can be given. 12/29/2019: Today, she appears confused and delirious. Additionally she has hard of hearing. It is reasonable to add antipsychotics for the resolution of delirium which can be discontinued once her mental status get back to baseline. Plan: Start risperidone 1 mg nightly for delirium resolution. Continue to monitor for symptomatology and behavioral disturbances. In case of severe behavioral disturbance Haldol 2.5 mg twice a day can be started. Risks, benefits, alternatives are given. Patient is in acceptance with plan. Avoid sundowning. Applied delirium protocol Thank you for involving inpatient care FRANK BURNS MD Dec 29, 2019 21:01
[2019-12-29] MEDS: SIMVASTATIN 40 MG TABLET. PO SCH (21:27)
[2019-12-29] MEDS: risperiDONE 1 MG TABLET. PO SCH (21:27)
[2019-12-29 23:00] VITALS: BP 117/72
[2019-12-30 03:00] VITALS: BP 140/56
[2019-12-30] MEDS: PANTOPRAZOLE 40 MG TABLET.DR. PO SCH (06:26)
[2019-12-30 06:55] LABS: BASO % 0 % (0-3); EOS % 0 % (0-3); HEMATOCRIT 35.9 % (36.0-47.0); HEMOGLOBIN 11.4 g/dL (12.0-15.5); LYMPH # 0.8 x10^3/uL (1.0-4.8); LYMPH % 8 % (24-48); MEAN CORPUSCULAR HEMOGLOBIN 29 pg (25-35); MEAN CORPUSCULAR HGB CONC 32 g/dL (31-37); MEAN CORPUSCULAR VOLUME 92 fL (79-100); MONO # 0.8 x10^3/uL (0.0-1.1); MONO % 8 % (0-9); NEUT # 8.1 x10^3/uL (1.8-7.7); NEUT % 84 % (31-73); PLATELET COUNT 225 x10^3/uL (140-400); RED BLOOD COUNT 3.89 x10^6/uL (3.50-5.40); RED CELL DISTRIBUTION WIDTH 17.7 % (11.5-14.5); WHITE BLOOD COUNT 9.7 x10^3/uL (4.0-11.0)
[2019-12-30 07:00] VITALS: BP 131/55
--- NOTE | 2019-12-30 08:40 | PDOC ---
ORTHO PROGRESS NOTES DATE: 12/30/19 TIME: 08:37 Subjective Patient states that her wrist is still very painful. Post-op Day: 1 Procedure Right wrist open distal radius intra-articular fixation with 3 fragments. Vitals Vital Signs Date Time Temp Pulse Resp B/P (MAP) Pulse Ox O2 Delivery O2 Flow Rate FiO2 12/30/19 07:00 97.5 88 16 131/55 (80) 93 Room Air 97.5 12/29/19 21:28 2.0 Labs Laboratory Tests Test 12/30/19 06:40 White Blood Count 9.7 x10^3/uL (4.0-11.0) Red Blood Count 3.89 x10^6/uL (3.50-5.40) Hemoglobin 11.4 g/dL (12.0-15.5) Hematocrit 35.9 % (36.0-47.0) Mean Corpuscular Volume 92 fL (79-100) Mean Corpuscular Hemoglobin 29 pg (25-35) Mean Corpuscular Hemoglobin Concent 32 g/dL (31-37) Red Cell Distribution Width 17.7 % (11.5-14.5) Platelet Count 225 x10^3/uL (140-400) Neutrophils (%) (Auto) 84 % (31-73) Lymphocytes (%) (Auto) 8 % (24-48) Monocytes (%) (Auto) 8 % (0-9) Eosinophils (%) (Auto) 0 % (0-3) Basophils (%) (Auto) 0 % (0-3) Neutrophils # (Auto) 8.1 x10^3/uL (1.8-7.7) Lymphocytes # (Auto) 0.8 x10^3/uL (1.0-4.8) Monocytes # (Auto) 0.8 x10^3/uL (0.0-1.1) Eosinophils # (Auto) 0.0 x10^3/uL (0.0-0.7) Basophils # (Auto) 0.0 x10^3/uL (0.0-0.2) Laboratory Tests Test 12/30/19 06:40 White Blood Count 9.7 x10^3/uL (4.0-11.0) Red Blood Count 3.89 x10^6/uL (3.50-5.40) Hemoglobin 11.4 g/dL (12.0-15.5) Hematocrit 35.9 % (36.0-47.0) Mean Corpuscular Volume 92 fL (79-100) Mean Corpuscular Hemoglobin 29 pg (25-35) Mean Corpuscular Hemoglobin Concent 32 g/dL (31-37) Red Cell Distribution Width 17.7 % (11.5-14.5) Platelet Count 225 x10^3/uL (140-400) Neutrophils (%) (Auto) 84 % (31-73) Lymphocytes (%) (Auto) 8 % (24-48) Monocytes (%) (Auto) 8 % (0-9) Eosinophils (%) (Auto) 0 % (0-3) Basophils (%) (Auto) 0 % (0-3) Neutrophils # (Auto) 8.1 x10^3/uL (1.8-7.7) Lymphocytes # (Auto) 0.8 x10^3/uL (1.0-4.8) Monocytes # (Auto) 0.8 x10^3/uL (0.0-1.1) Eosinophils # (Auto) 0.0 x10^3/uL (0.0-0.7) Basophils # (Auto) 0.0 x10^3/uL (0.0-0.2) Notes Awake and alert but confused. Assessment and Plan Open reduction internal fixation of the right distal radius intra-articular fracture. Motor and sensation intact distally. Moving her fingers upon request. Splint is in place Dressing is dry and intact. TAIWO COHN APRN Dec 30, 2019 08:40
[2019-12-30] MEDS: ASPIRIN ENTERIC COATED 81 MG TABLET.DR. PO SCH (09:18)
[2019-12-30] MEDS: CITALOPRAM 20 MG TABLET. PO SCH (09:19)
[2019-12-30] MEDS: ALLOPURINOL 100 MG TABLET. PO SCH (09:20)
[2019-12-30] MEDS: LEVOTHYROXINE 88 MCG TABLET PO SCH (09:20)
[2019-12-30] MEDS: oxyCODONE/APAP 5/325 1 TAB TABLET PO PRN ×2 (09:20→20:49)
[2019-12-30] MEDS: METOPROLOL TART IMMED RELEASE 25 MG TABLET. PO SCH ×2 (09:21→20:49)
[2019-12-30] MEDS: ENOXAPARIN 30 MG/0.3 ML SYRINGE. SQ SCH (09:21)
[2019-12-30 10:21] LABS: ALBUMIN 2.8 g/dL (3.4-5.0); ALBUMIN/GLOBULIN RATIO 0.7 (1.0-1.7); CALCIUM 9.1 mg/dL (8.5-10.1); CREATININE 1.5 mg/dL (0.6-1.0); GFR 32.8; POTASSIUM 4.2 mmol/L (3.5-5.1); TOTAL BILIRUBIN 0.6 mg/dL (0.2-1.0)
[2019-12-30 11:00] VITALS: BP 116/43
--- NOTE | 2019-12-30 12:45 | PDOC ---
PROGRESS NOTES Date of Service: DATE: 12/30/19 TIME: 12:44 Chief Complaint Chief Complaint Bilateral wrist pain - unable to use her walker due to right wrist fracture, will have PT evaluate for platform walker Comminuted distal radius fracture, intra-articular extension through the radiocarpal articulation, Right wrist fracture - splinted. 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 Seen by nephrology Hyperlipidemia CAD s/p BETSEY - she has been concerned about brillinta and has not filled it recently, needs antiplatelet, will order plavix Chronic diastolic Congestive heart failure S/p right nephrectomy H/o Cervical cancer s/p TAHBSO Aortic stenosis - with falls, could be partially syncope related, will order echocardiogram ECHO 12/27 The left ventricular systolic function is normal and the ejection fraction is within normal range. The Ejection Fraction is 55-60%. There is normal LV segmental wall motion. Doppler and Color Flow revealed trace tricuspid regurgitation with an estimated PAP of 40 mmHg. Anemia - likely of chronic renal disease, will check iron stores Moderate protein calorie malnutrition - Paranoid behavior - mild cognitive impairment 38 MIN PT EXAM, CHART REVIEW, > 50% OF TIME SPENT WITH EXAM, CHART REVIEW, PT C ARE COORDINATION SURGERY 12/28 PM Dispo - Inpatient for frequent falls and inability to care for herself. She has made it clear she does not want permanent SNF placement and is amenable to acute rehab History of Present Illness History of Present Illness History of Present Illness History of Present Illness Ms Campos is an 87yo F w/ PMHx CAD s/p BETSEY, Congestive heart failure, Chronic kidney disease s/p right nephrectomy, cervical cancer s/p TAHBSO, and aortic stenosis who presents with increased weakness and frequent falls. She notes a mechanical fall resulting in a left wrist injury. Patient was here 4 days ago for a fall and a right wrist fracture. Patient has a splint on that wrist. Patient denies any dizziness, chest pain and states her legs went out on her which is not uncommon for her and she fell and landed on her left wrist. Patient describes moderate pain that radiates up to the left forearm that is worse with palpation and movement. Patient denies any focal numbness. Patient does have some limited range of motion in the wrist due to pain. Patient denies hitting her head or having loss of consciousness. Cr 1.3, albumin 3.1. Left wrist x-ray with no acute fracture. When discussing her falls and potential rehab she asks "would you put your mother in a longterm? I do want to be put in the home." She is asking for dinner tells me she has not eaten in 2 days. Admitted for further treatment. Vitals Vitals Vital Signs Date Time Temp Pulse Resp B/P (MAP) Pulse Ox O2 Delivery O2 Flow Rate FiO2 12/30/19 11:00 97.6 79 16 116/43 (67) 97 Room Air 97.6 12/30/19 07:30 2.0 Physical Exam General: Alert, Oriented X3, Cooperative, No acute distress Heart: Regular rate, Normal S1, Normal S2, Other (2/6 systolic murmur ) Lungs: Wheezing Abdomen: Soft Extremities: Other (right hand edema. Fingers with diffuse ecchymosis ) Skin: No significant lesion Labs LABS Laboratory Tests Test 12/30/19 06:40 12/30/19 09:50 White Blood Count 9.7 x10^3/uL (4.0-11.0) Red Blood Count 3.89 x10^6/uL (3.50-5.40) Hemoglobin 11.4 g/dL (12.0-15.5) Hematocrit 35.9 % (36.0-47.0) Mean Corpuscular Volume 92 fL (79-100) Mean Corpuscular Hemoglobin 29 pg (25-35) Mean Corpuscular Hemoglobin Concent 32 g/dL (31-37) Red Cell Distribution Width 17.7 % (11.5-14.5) Platelet Count 225 x10^3/uL (140-400) Neutrophils (%) (Auto) 84 % (31-73) Lymphocytes (%) (Auto) 8 % (24-48) Monocytes (%) (Auto) 8 % (0-9) Eosinophils (%) (Auto) 0 % (0-3) Basophils (%) (Auto) 0 % (0-3) Neutrophils # (Auto) 8.1 x10^3/uL (1.8-7.7) Lymphocytes # (Auto) 0.8 x10^3/uL (1.0-4.8) Monocytes # (Auto) 0.8 x10^3/uL (0.0-1.1) Eosinophils # (Auto) 0.0 x10^3/uL (0.0-0.7) Basophils # (Auto) 0.0 x10^3/uL (0.0-0.2) Sodium Level 139 mmol/L (136-145) Potassium Level 4.2 mmol/L (3.5-5.1) Chloride Level 104 mmol/L (98-107) Carbon Dioxide Level 27 mmol/L (21-32) Anion Gap 8 (6-14) Blood Urea Nitrogen 27 mg/dL (7-20) Creatinine 1.5 mg/dL (0.6-1.0) Estimated GFR (Cockcroft-Gault) 32.8 BUN/Creatinine Ratio 18 (6-20) Glucose Level 111 mg/dL (70-99) Calcium Level 9.1 mg/dL (8.5-10.1) Total Bilirubin 0.6 mg/dL (0.2-1.0) Aspartate Amino Transf (AST/SGOT) 18 U/L (15-37) Alanine Aminotransferase (ALT/SGPT) 9 U/L (14-59) Alkaline Phosphatase 112 U/L (46-116) Total Protein 7.0 g/dL (6.4-8.2) Albumin 2.8 g/dL (3.4-5.0) Albumin/Globulin Ratio 0.7 (1.0-1.7) Assessment and Plan Assessmemt and Plan Problems Medical Problems: (1) Left wrist sprain Status: Acute Comment Review of Relevant I have reviewed the following items javan (where applicable) has been applied. Labs Laboratory Tests Test 12/30/19 06:40 12/30/19 09:50 White Blood Count 9.7 x10^3/uL (4.0-11.0) Red Blood Count 3.89 x10^6/uL (3.50-5.40) Hemoglobin 11.4 g/dL (12.0-15.5) Hematocrit 35.9 % (36.0-47.0) Mean Corpuscular Volume 92 fL (79-100) Mean Corpuscular Hemoglobin 29 pg (25-35) Mean Corpuscular Hemoglobin Concent 32 g/dL (31-37) Red Cell Distribution Width 17.7 % (11.5-14.5) Platelet Count 225 x10^3/uL (140-400) Neutrophils (%) (Auto) 84 % (31-73) Lymphocytes (%) (Auto) 8 % (24-48) Monocytes (%) (Auto) 8 % (0-9) Eosinophils (%) (Auto) 0 % (0-3) Basophils (%) (Auto) 0 % (0-3) Neutrophils # (Auto) 8.1 x10^3/uL (1.8-7.7) Lymphocytes # (Auto) 0.8 x10^3/uL (1.0-4.8) Monocytes # (Auto) 0.8 x10^3/uL (0.0-1.1) Eosinophils # (Auto) 0.0 x10^3/uL (0.0-0.7) Basophils # (Auto) 0.0 x10^3/uL (0.0-0.2) Sodium Level 139 mmol/L (136-145) Potassium Level 4.2 mmol/L (3.5-5.1) Chloride Level 104 mmol/L (98-107) Carbon Dioxide Level 27 mmol/L (21-32) Anion Gap 8 (6-14) Blood Urea Nitrogen 27 mg/dL (7-20) Creatinine 1.5 mg/dL (0.6-1.0) Estimated GFR (Cockcroft-Gault) 32.8 BUN/Creatinine Ratio 18 (6-20) Glucose Level 111 mg/dL (70-99) Calcium Level 9.1 mg/dL (8.5-10.1) Total Bilirubin 0.6 mg/dL (0.2-1.0) Aspartate Amino Transf (AST/SGOT) 18 U/L (15-37) Alanine Aminotransferase (ALT/SGPT) 9 U/L (14-59) Alkaline Phosphatase 112 U/L (46-116) Total Protein 7.0 g/dL (6.4-8.2) Albumin 2.8 g/dL (3.4-5.0) Albumin/Globulin Ratio 0.7 (1.0-1.7) Laboratory Tests Test 12/30/19 06:40 12/30/19 09:50 White Blood Count 9.7 x10^3/uL (4.0-11.0) Red Blood Count 3.89 x10^6/uL (3.50-5.40) Hemoglobin 11.4 g/dL (12.0-15.5) Hematocrit 35.9 % (36.0-47.0) Mean Corpuscular Volume 92 fL (79-100) Mean Corpuscular Hemoglobin 29 pg (25-35) Mean Corpuscular Hemoglobin Concent 32 g/dL (31-37) Red Cell Distribution Width 17.7 % (11.5-14.5) Platelet Count 225 x10^3/uL (140-400) Neutrophils (%) (Auto) 84 % (31-73) Lymphocytes (%) (Auto) 8 % (24-48) Monocytes (%) (Auto) 8 % (0-9) Eosinophils (%) (Auto) 0 % (0-3) Basophils (%) (Auto) 0 % (0-3) Neutrophils # (Auto) 8.1 x10^3/uL (1.8-7.7) Lymphocytes # (Auto) 0.8 x10^3/uL (1.0-4.8) Monocytes # (Auto) 0.8 x10^3/uL (0.0-1.1) Eosinophils # (Auto) 0.0 x10^3/uL (0.0-0.7) Basophils # (Auto) 0.0 x10^3/uL (0.0-0.2) Sodium Level 139 mmol/L (136-145) Potassium Level 4.2 mmol/L (3.5-5.1) Chloride Level 104 mmol/L (98-107) Carbon Dioxide Level 27 mmol/L (21-32) Anion Gap 8 (6-14) Blood Urea Nitrogen 27 mg/dL (7-20) Creatinine 1.5 mg/dL (0.6-1.0) Estimated GFR (Cockcroft-Gault) 32.8 BUN/Creatinine Ratio 18 (6-20) Glucose Level 111 mg/dL (70-99) Calcium Level 9.1 mg/dL (8.5-10.1) Total Bilirubin 0.6 mg/dL (0.2-1.0) Aspartate Amino Transf (AST/SGOT) 18 U/L (15-37) Alanine Aminotransferase (ALT/SGPT) 9 U/L (14-59) Alkaline Phosphatase 112 U/L (46-116) Total Protein 7.0 g/dL (6.4-8.2) Albumin 2.8 g/dL (3.4-5.0) Albumin/Globulin Ratio 0.7 (1.0-1.7) Medications Current Medications Tramadol HCl (Ultram) 50 mg 1X ONCE PO Last administered on 12/26/19 13:37; Start 12/26/19 at 13:30; Stop 12/26/19 at 13:31; Status DC Ondansetron HCl (Zofran) 4 mg PRN Q8HRS PRN IV NAUSEA/VOMITING; Start 12/26/19 at 16:45; Stop 12/26/19 at 20:11; Status DC Ondansetron HCl (Zofran) 4 mg PRN Q4HRS PRN IV NAUSEA/VOMITING; Start 12/26/19 at 20:15 Acetaminophen (Tylenol) 650 mg PRN Q6HRS PRN PO TEMP > 100.3'F Last administered on 12/29/19 05:21; Start 12/26/19 at 20:15 Allopurinol (Zyloprim) 100 mg DAILY PO Last administered on 12/30/19 09:20; Start 12/27/19 at 09:00 Aspirin (Ecotrin) 81 mg DAILY08 PO Last administered on 12/30/19 09:18; Start 12/27/19 at 08:00 Levothyroxine Sodium (Synthroid) 88 mcg DAILY PO Last administered on 12/30/19 09:20; Start 12/27/19 at 09:00 Pantoprazole Sodium (Protonix) 40 mg DAILY07 PO Last administered on 12/30/19 06:26; Start 12/27/19 at 07:00 Citalopram Hydrobromide (CeleXA) 40 mg DAILY PO Last administered on 12/30/19 09:19; Start 12/27/19 at 09:00 Simvastatin (Zocor) 80 mg QHS PO Last administered on 12/29/19 21:27; Start 12/26/19 at 21:00 Enoxaparin Sodium (Lovenox 30mg Syringe) 30 mg Q24H SQ Last administered on 12/30/19 09:21; Start 12/27/19 at 09:00 Clopidogrel Bisulfate (Plavix) 75 mg DAILYWBKFT PO Last administered on 12/28/19at 07:53; Start 12/27/19 at 08:00; Stop 12/28/19 at 16:41; Status DC Tramadol HCl (Ultram) 50 mg PRN Q6HRS PRN PO MILD PAIN 1-3 Last administered on 12/27/19at 09:19; Start 12/26/19 at 20:15 Fentanyl Citrate (Fentanyl 2ml Vial) 25 mcg PRN Q2HR PRN IVP PAIN Last administered on 12/27/19at 02:18; Start 12/27/19 at 02:15 Oxycodone/ Acetaminophen (Percocet 5/325) 1 tab PRN Q4HRS PRN PO MODERATE PAIN Last administered on 12/30/19at 09:20; Start 12/27/19 at 13:15 Oxycodone/ Acetaminophen (Percocet 5/325) 2 tab PRN Q4HRS PRN PO SEVERE PAIN; Start 12/27/19 at 13:30 Metoprolol Tartrate (Lopressor) 12.5 mg BID PO Last administered on 12/30/19at 09:21; Start 12/28/19 at 21:00 Fentanyl Citrate (Fentanyl 2ml Vial) 25 mcg PRN Q5MIN PRN IV MILD PAIN 1-3 Last administered on 12/29/19at 16:38; Start 12/29/19 at 11:00; Stop 12/30/19 at 10:59; Status DC Fentanyl Citrate (Fentanyl 2ml Vial) 50 mcg PRN Q5MIN PRN IV MODERATE TO SEVERE PAIN; Start 12/29/19 at 11:00; Stop 12/30/19 at 10:59; Status DC Morphine Sulfate (Morphine Sulfate) 1 mg PRN Q10MIN PRN IV SEVERE PAIN 7-10 Last administered on 12/29/19at 17:10; Start 12/29/19 at 11:00; Stop 12/30/19 at 10:59; Status DC Ringer's Solution 1,000 ml @ 30 mls/hr Q24H IV Last administered on 12/29/19at 14:20; Start 12/29/19 at 10:51; Stop 12/29/19 at 22:50; Status DC Hydromorphone HCl (Dilaudid) 0.5 mg PRN Q10MIN PRN IV SEV PAIN, Second choice; Start 12/29/19 at 11:00; Stop 12/30/19 at 10:59; Status DC Prochlorperazine Edisylate (Compazine) 5 mg PACU PRN PRN IV NAUSEA, MRX1 Last administered on 12/29/19at 16:15; Start 12/29/19 at 11:00; Stop 12/30/19 at 10:59; Status DC Fentanyl Citrate (Fentanyl 2ml Vial) 100 mcg STK-MED ONCE .ROUTE ; Start at 14:02; Stop 12/29/19 at 14:02; Status DC Propofol (Diprivan) 200 mg STK-MED ONCE IV ; Start 12/29/19 at 14:04; Stop 12/28 at 14:05; Status DC Lidocaine HCl (Lidocaine Pf 2% Vial) 5 ml STK-MED ONCE .ROUTE ; Start 12/29/19 at 14:04; Stop 12/29/19 at 14:05; Status DC Cefazolin Sodium/ Dextrose 50 ml @ 100 mls/hr 1X PREOP PRN IV SEE COMMENTS Last administered on 12/29/19at 14:41; Start 12/29/19 at 14:15; Stop 12/30/19 at 09:21; Status DC Bupivacaine HCl/ Epinephrine Bitart (Sensorcaine-Epi 0.25%-1:412911 Mpf) 30 ml STK-MED ONCE .ROUTE Last administered on 12/29/19at 15:09; Start 12/29/19 at 14:24; Stop 12/29/19 at 14:25; Status DC Dexamethasone Sodium Phosphate (Decadron) 4 mg STK-MED ONCE .ROUTE ; Start 12/29/19 at 14:48; Stop 12/29/19 at 14:48; Status DC Ondansetron HCl (Zofran) 4 mg STK-MED ONCE .ROUTE ; Start 12/29/19 at 14:48; Stop 12/29/19 at 14:48; Status DC Sevoflurane (Ultane) 30 ml STK-MED ONCE IH ; Start 12/29/19 at 14:48; Stop 12/29/19 at 14:48; Status DC Phenylephrine HCl (PHENYLEPHRINE in 0.9% NACL PF) 1 mg STK-MED ONCE IV ; Start 12/29/19 at 15:06; Stop 12/29/19 at 15:06; Status DC Fentanyl Citrate (Fentanyl 2ml Vial) 100 mcg STK-MED ONCE .ROUTE ; Start 12/29/19 at 15:58; Stop 12/29/19 at 15:58; Status DC Prochlorperazine Edisylate (Compazine) 10 mg STK-MED ONCE .ROUTE ; Start 12/29/19 at 16:13; Stop 12/29/19 at 16:13; Status DC Morphine Sulfate (Morphine Sulfate) 2 mg STK-MED ONCE .ROUTE ; Start 12/29/19 at 17:07; Stop 12/29/19 at 17:07; Status DC Risperidone (RisperDAL) 1 mg HS PO Last administered on 12/29/19at 21:27; Start 12/29/19 at 21:30 Active Scripts Active Panora 5-325 Tablet (Acetaminophen/Hydrocodone Bitart) 1 Each Tablet 1-2 Each PO PRN Q6HRS PRN as needed for pain Ibuprofen 600 Mg Tablet 600 Mg PO PRN Q6HRS PRN take with food or milk Keflex (Cephalexin) 500 Mg Capsule 500 Mg PO QID 7 Days Culturelle (Lactobacillus Rhamnosus Gg) 1 Each Cap.sprink 1 Cap PO BID 7 Days Reported Brilinta (Ticagrelor) 90 Mg Tablet 90 Mg PO BID Tova-D 24 Hour Tablet (Fexofenadine/Pseudoephedrine) 1 Each Tab.er.24h 1 Tab PO DAILY Levothyroxine Sodium 88 Mcg Tablet 88 Mcg PO DAILY Citalopram Hbr (Citalopram Hydrobromide) 40 Mg Tablet 40 Mg PO DAILY Allopurinol 100 Mg Tablet 100 Mg PO DAILY Pantoprazole Sodium (Pantoprazole Sodium) 40 Mg Tablet.dr 40 Mg PO DAILY Aspir-Low (Aspirin) 81 Mg Tablet.dr 1 Tab PO DAILY Simvastatin 80 Mg Tablet 1 Tab PO QHS Furosemide 40 Mg Tablet 1 Tab PO DAILY Vitals/I & O Vital Sign - Last 24 Hours 12/29/19 12/29/19 12/29/19 12/29/19 14:19 15:46 15:50 16:00 Temp 97.6 98 97.6 98.0 Pulse 62 74 Resp 20 16 16 B/P (MAP) 165/67 158/63 Pulse Ox 94 96 96 O2 Delivery Room Air Room Air Mask Room Air O2 Flow Rate 10 10 10.0 12/29/19 12/29/19 12/29/19 12/29/19 16:01 16:09 16:16 16:20 Pulse 65 79 Resp 16 16 16 16 B/P (MAP) 151/64 129/44 Pulse Ox 96 98 97 97 O2 Delivery Simple Mask Simple Mask Simple Mask Simple Mask O2 Flow Rate 10.0 10.0 10.0 10.0 12/29/19 12/29/19 12/29/19 12/29/19 16:22 16:26 16:31 16:37 Pulse 73 Resp 16 15 16 16 B/P (MAP) 140/51 Pulse Ox 97 97 98 98 O2 Delivery Simple Mask Simple Mask Simple Mask Simple Mask O2 Flow Rate 10.0 10.0 10.0 10.0 12/29/19 12/29/19 12/29/19 12/29/19 16:38 16:46 17:02 17:03 Pulse 71 71 Resp 15 16 16 16 B/P (MAP) 123/50 138/59 Pulse Ox 98 96 97 96 O2 Delivery Simple Mask Nasal Cannula Nasal Cannula Nasal Cannula O2 Flow Rate 10.0 3 3 3.0 12/29/19 12/29/19 12/29/19 12/29/19 17:10 17:18 17:25 19:00 Temp 97.4 97.4 Pulse 75 80 Resp 16 16 16 19 B/P (MAP) 144/68 134/71 (92) Pulse Ox 96 97 97 97 O2 Delivery Nasal Cannula Nasal Cannula Nasal Cannula Room Air O2 Flow Rate 3.0 3.0 3.0 12/29/19 12/29/19 12/29/19 12/29/19 19:40 21:27 21:28 23:00 Temp 98.4 98.4 Pulse 80 73 Resp 17 B/P (MAP) 134/71 117/72 (87) Pulse Ox 97 O2 Delivery Nasal Cannula Nasal Cannula Room Air O2 Flow Rate 2.0 2.0 12/30/19 12/30/19 12/30/19 12/30/19 03:00 07:00 07:30 09:20 Temp 97.5 97.5 97.5 97.5 Pulse 77 88 Resp 17 16 B/P (MAP) 140/56 (84) 131/55 (80) Pulse Ox 95 93 O2 Delivery Room Air Room Air Nasal Cannula Room Air O2 Flow Rate 2.0 12/30/19 12/30/19 09:21 11:00 Temp 97.6 97.6 Pulse 88 79 Resp 16 B/P (MAP) 131/55 116/43 (67) Pulse Ox 97 O2 Delivery Room Air Intake and Output 12/29/19 12/29/19 12/30/19 15:00 23:00 07:00 Intake Total 120 ml 700 ml 440 ml Output Total 50 ml Balance 120 ml 650 ml 440 ml Justicifation of Admission Dx: Justifications for Admission: Justification of Admission Dx: N/A HYUN DOOLEY MD Dec 30, 2019 12:45
[2019-12-30 15:07] VITALS: BP 121/53
--- NOTE | 2019-12-30 18:02 | PDOC ---
F/U PHYSCH PROG NOTE Subjective: female seen for routine follow-up. Progress is reviewed with nursing staff. No major emotional or behavioral breakdown reported. When seen, patient appears dysphoric and depressed. She is tearful stating her daughter is mad at her as she did not want to go to a care home and wants to go home. Appears that, there must be some discord between patient and her daughter upon placement. Denies suicidal or homicidal thoughts. Decide auditory or visual hallucinations. No evidence of tasia or hypomania. Tolerating medications denies adverse drug reaction. Objective: 14 point review of system is negative except for stated above. Vital Signs: Vital Signs Date Time Temp Pulse Resp B/P (MAP) Pulse Ox O2 Delivery O2 Flow Rate FiO2 12/30/19 15:07 97.4 71 16 121/53 (75) 96 Room Air 97.4 12/30/19 07:30 2.0 Labs: Laboratory Tests Test 12/30/19 06:40 12/30/19 09:50 White Blood Count 9.7 x10^3/uL (4.0-11.0) Red Blood Count 3.89 x10^6/uL (3.50-5.40) Hemoglobin 11.4 g/dL (12.0-15.5) L Hematocrit 35.9 % (36.0-47.0) L Mean Corpuscular Volume 92 fL (79-100) Mean Corpuscular Hemoglobin 29 pg (25-35) Mean Corpuscular Hemoglobin Concent 32 g/dL (31-37) Red Cell Distribution Width 17.7 % (11.5-14.5) H Platelet Count 225 x10^3/uL (140-400) Neutrophils (%) (Auto) 84 % (31-73) H Lymphocytes (%) (Auto) 8 % (24-48) L Monocytes (%) (Auto) 8 % (0-9) Eosinophils (%) (Auto) 0 % (0-3) Basophils (%) (Auto) 0 % (0-3) Neutrophils # (Auto) 8.1 x10^3/uL (1.8-7.7) H Lymphocytes # (Auto) 0.8 x10^3/uL (1.0-4.8) L Monocytes # (Auto) 0.8 x10^3/uL (0.0-1.1) Eosinophils # (Auto) 0.0 x10^3/uL (0.0-0.7) Basophils # (Auto) 0.0 x10^3/uL (0.0-0.2) Sodium Level 139 mmol/L (136-145) Potassium Level 4.2 mmol/L (3.5-5.1) Chloride Level 104 mmol/L (98-107) Carbon Dioxide Level 27 mmol/L (21-32) Anion Gap 8 (6-14) Blood Urea Nitrogen 27 mg/dL (7-20) H Creatinine 1.5 mg/dL (0.6-1.0) H Estimated GFR (Cockcroft-Gault) 32.8 BUN/Creatinine Ratio 18 (6-20) Glucose Level 111 mg/dL (70-99) H Calcium Level 9.1 mg/dL (8.5-10.1) Total Bilirubin 0.6 mg/dL (0.2-1.0) Aspartate Amino Transferase (AST) 18 U/L (15-37) Alanine Aminotransferase (ALT) 9 U/L (14-59) L Alkaline Phosphatase 112 U/L (46-116) Total Protein 7.0 g/dL (6.4-8.2) Albumin 2.8 g/dL (3.4-5.0) L Albumin/Globulin Ratio 0.7 (1.0-1.7) L Laboratory Tests 12/30/19 06:40 Laboratory Tests 12/30/19 09:50 Medications: Current Medications Medications (Trade) Dose Ordered Sig/Dimple Start Time Stop Time Status Last Admin Dose Admin Acetaminophen (Tylenol) 650 mg PRN Q6HRS PRN 12/26/19 20:15 12/29/19 05:21 650 MG Allopurinol (Zyloprim) 100 mg DAILY 12/27/19 09:00 12/30/19 09:20 100 MG Aspirin (Ecotrin) 81 mg DAILY08 12/27/19 08:00 12/30/19 09:18 81 MG Bupivacaine HCl/ Epinephrine Bitart (Sensorcaine-Epi 0.25%-1:[id number] Mpf) 30 ml STK-MED ONCE 12/29/19 14:24 12/29/19 14:25 DC 12/29/19 15:09 30 ML Cefazolin Sodium/ Dextrose 50 ml @ 100 mls/hr 1X PREOP PRN 12/29/19 14:15 12/30/19 09:21 DC 12/29/19 14:41 100 MLS/HR Citalopram Hydrobromide (CeleXA) 40 mg DAILY 12/27/19 09:00 12/30/19 09:19 40 MG Clopidogrel Bisulfate (Plavix) 75 mg DAILYWBKFT 12/27/19 08:00 12/28/19 16:41 DC 12/28/19 07:53 75 MG Dexamethasone Sodium Phosphate (Decadron) 4 mg STK-MED ONCE 12/29/19 14:48 12/29/19 14:48 DC Enoxaparin Sodium (Lovenox 30mg Syringe) 30 mg Q24H 12/27/19 09:00 12/30/19 09:21 30 MG Fentanyl Citrate (Fentanyl 2ml Vial) 100 mcg STK-MED ONCE 12/29/19 15:58 12/29/19 15:58 DC Hydromorphone HCl (Dilaudid) 0.5 mg PRN Q10MIN PRN 12/29/19 11:00 12/30/19 10:59 DC Levothyroxine Sodium (Synthroid) 88 mcg DAILY 12/27/19 09:00 12/30/19 09:20 88 MCG Lidocaine HCl (Lidocaine Pf 2% Vial) 5 ml STK-MED ONCE 12/29/19 14:04 12/29/19 14:05 DC Metoprolol Tartrate (Lopressor) 12.5 mg BID 12/28/19 21:00 12/30/19 09:21 12.5 MG Morphine Sulfate (Morphine Sulfate) 2 mg STK-MED ONCE 12/29/19 17:07 12/29/19 17:07 DC Ondansetron HCl (Zofran) 4 mg STK-MED ONCE 12/29/19 14:48 12/29/19 14:48 DC Oxycodone/ Acetaminophen (Percocet 5/325) 2 tab PRN Q4HRS PRN 12/27/19 13:30 Pantoprazole Sodium (Protonix) 40 mg DAILY07 12/27/19 07:00 12/30/19 06:26 40 MG Phenylephrine HCl (PHENYLEPHRINE in 0.9% NACL PF) 1 mg STK-MED ONCE 12/29/19 15:06 12/29/19 15:06 DC Prochlorperazine Edisylate (Compazine) 10 mg STK-MED ONCE 12/29/19 16:13 12/29/19 16:13 DC Propofol (Diprivan) 200 mg STK-MED ONCE 12/29/19 14:04 12/29/19 14:05 DC Ringer's Solution 1,000 ml @ 30 mls/hr Q24H 12/29/19 10:51 12/29/19 22:50 DC 12/29/19 14:20 30 MLS/HR Risperidone (RisperDAL) 1 mg HS 12/29/19 21:30 12/29/19 21:27 1 MG Sevoflurane (Ultane) 30 ml STK-MED ONCE 12/29/19 14:48 12/29/19 14:48 DC Simvastatin (Zocor) 80 mg QHS 12/26/19 21:00 12/29/19 21:27 80 MG Tramadol HCl (Ultram) 50 mg PRN Q6HRS PRN 12/26/19 20:15 12/27/19 09:19 50 MG Physical Exam: Mental Status Exam: Elderly female, appears her stated age Cooperative and interactive but has severe hard of hearing Disoriented Thought processes not linear Denies suicidal or homicidal thoughts. Denies auditory or visual hallucinations. No abnormal perception noted Mood is down Affect is dysthymic Insight fair judgment fair impulse control fair Attention span and concentration fair Recent memory impaired Remote memory intact Physical Exam: Refer to Physician's note. TOLL COLLECTOR: No focal deficit MSK: No EPS, TDK, or abnormal involuntary movements Diagnosis: Unspecified neurocognitive disorder. Rule out major neurocognitive disorder Unspecified delirium Rule out delirium,/metabolic encephalopathy. Assessment: She is a pleasant female struggling with memory issues and paranoid behavior. Apparently, during conversation no paranoia, irritability, or agitation noted. However, symptomatology and history is consistent with unspecified delirium. Delirium is a fluctuating process which needs to be monitored continuously. In absence of significant behavioral disturbances, or significant paranoia will avoid antipsychotics due to the risk of adverse drug reaction in octogenarian population. However in case of severe behavioral disturbances or significant Paranoia interfering with decision making, a trial of antipsychotics can be given. 12/29/2019: Today, she appears confused and delirious. Additionally she has hard of hearing. It is reasonable to add antipsychotics for the resolution of delirium which can be discontinued once her mental status get back to baseline. Plan: Increase risperidone to 1 mg bid for delirium resolution. Continue to monitor for symptomatology and behavioral disturbances. In case of severe behavioral disturbance Haldol 2.5 mg twice a day can be started. Risks, benefits, alternatives are given. Patient is in acceptance with plan. Avoid sundowning. Applied delirium protocol Thank you for involving inpatient care FRANK BURNS MD Dec 30, 2019 18:02
[2019-12-30 19:00] VITALS: BP 100/78
[2019-12-30] MEDS: risperiDONE 1 MG TABLET. PO SCH (20:49)
[2019-12-30] MEDS: SIMVASTATIN 40 MG TABLET. PO SCH (20:50)
[2019-12-30 23:00] VITALS: BP 84/39
[2019-12-31 00:16] VITALS: BP 97/54
[2019-12-31 03:00] VITALS: BP 103/47
[2019-12-31 07:00] VITALS: BP 131/59
[2019-12-31] MEDS: ASPIRIN ENTERIC COATED 81 MG TABLET.DR. PO SCH (08:32)
[2019-12-31] MEDS: CITALOPRAM 20 MG TABLET. PO SCH (08:32)
[2019-12-31] MEDS: ENOXAPARIN 30 MG/0.3 ML SYRINGE. SQ SCH (08:32)
[2019-12-31] MEDS: LEVOTHYROXINE 88 MCG TABLET PO SCH (08:32)
[2019-12-31] MEDS: ALLOPURINOL 100 MG TABLET. PO SCH (08:32)
[2019-12-31] MEDS: PANTOPRAZOLE 40 MG TABLET.DR. PO SCH (08:32)
[2019-12-31] MEDS: METOPROLOL TART IMMED RELEASE 25 MG TABLET. PO SCH (08:33)
[2019-12-31] MEDS ORDERED: HYDR-3164 PO (09:54)
[2019-12-31] MEDS ORDERED: RISP1TAB43 PO ×2 (09:54→09:59)
--- NOTE | 2019-12-31 09:55 | SNU/HH DC ---
DISCHARGE ORDERS DISCHARGE INFORMATION: DISCHARGE DATE: Dec 31, 2019 FINAL DIAGNOSIS wrist fracture dementia obese htn Problems Medical Problems: (1) Left wrist sprain Status: Acute CONDITION ON DISCHARGE: Stable CODE STATUS: Code Status: Full [facility]: SNF STAY <30 DAYS: Yes POST DISCHARGE ORDERS: ACTIVITY ORDERS: Activity as tolerated WEIGHT BEARING STATUS: As tolerated DIET AFTER DISCHARGE: Cardiac WOUND/INCISION CARE: No wound care needed CHECKS AFTER DISCHARGE: CHECKS AFTER DISCHARGE: Check blood press - daily, Weigh Yourself Daily TREATMENT/EQUIPMENT ORDERS: ADAPTIVE EQUIPMENT NEEDED: Front wheeled walker Physical Therapy For: Evalulation/Treatment Occupational Therapy For: Evaluation/Treatment DISCHARGE MEDICATIONS: Home Meds Active Scripts Risperidone (RISPERDAL) 1 Mg Tablet, 1 MG PO BID for mood, #60 TAB Prov:HYUN DOOLEY MD 12/31/19 Haloperidol (HALOPERIDOL) 2 Mg Tablet, 1 TAB PO Q6HRS PRN for DELIRIUM, #60 TAB Prov:HYUN DOOLEY MD 12/31/19 Metoprolol Tartrate (METOPROLOL TARTRATE) 25 Mg Tablet, 12.5 MG PO BID for htn, #60 TAB Prov:HYUN DOOLEY MD 12/31/19 Hydrocodone/Apap 5-325 (NORCO 5-325 TABLET) 1 Each Tablet, 1 EACH PO PRN Q6HRS PRN for PAIN, #30 TAB as needed for pain Prov:HYUN DOOLEY MD 12/31/19 Ibuprofen (IBUPROFEN) 600 Mg Tablet, 600 MG PO PRN Q6HRS PRN for PAIN, #20 TAB take with food or milk Prov:KOKO CASSIDY DO 12/23/19 Lactobacillus Rhamnosus Gg (CULTURELLE) 1 Each Cap.sprink, 1 CAP PO BID for Diarrhea for 7 Days, #14 CAP Prov:VICTORIANO TORRE MD 11/28/18 Reported Medications Ticagrelor (BRILINTA) 90 Mg Tablet, 90 MG PO BID for heart, TAB 11/26/18 Fexofenadine/Pseudoephedrine (YING-D 24 HOUR TABLET) 1 Each Tab.er.24h, 1 TAB PO DAILY, #30 TAB 2 Refills 08/11/17 Levothyroxine Sodium (LEVOTHYROXINE SODIUM) 88 Mcg Tablet, 88 MCG PO DAILY 08/11/17 Citalopram Hydrobromide (CITALOPRAM HBR) 40 Mg Tablet, 40 MG PO DAILY 08/11/17 Allopurinol (ALLOPURINOL) 100 Mg Tablet, 100 MG PO DAILY for gout, TAB 10/12/16 Pantoprazole Sodium (PANTOPRAZOLE SODIUM ) 40 Mg Tablet.dr, 40 MG PO DAILY for GERD, TAB 10/12/16 Aspirin (ASPIR-LOW) 81 Mg Tablet.dr, 1 TAB PO DAILY for blood thinner, #30 TAB 3 Refills 03/02/14 Simvastatin (SIMVASTATIN) 80 Mg Tablet, 1 TAB PO QHS for lowers cholesterol, #90 TAB 3 Refills 03/02/14 Furosemide (FUROSEMIDE) 40 Mg Tablet, 1 TAB PO DAILY for diuretic, #30 TAB 5 Refills 03/02/14 Discontinued Scripts Cephalexin (KEFLEX) 500 Mg Capsule, 500 MG PO QID for Cellulitis for 7 Days, #28 CAP Prov:VICTORIANO TORRE MD 11/28/18 HYUN DOOLEY MD Dec 31, 2019 09:55
[2019-12-31] MEDS ORDERED: HALO2TAB PO (09:58)
[2019-12-31] MEDS ORDERED: METO25TA4 PO (09:58)
[2019-12-31] MEDS ORDERED: HALOPERIDOL 2 MG TABLET. PO PRN (10:00)
--- NOTE | 2019-12-31 10:03 | PDOC3 ---
Discharge Summary Visit Information Date of Admission: Dec 26, 2019 Date of Discharge: Dec 31, 2019 Final Diagnosis Bilateral wrist pain - unable to use her walker due to right wrist fracture, will have PT evaluate for platform walker Comminuted distal radius fracture, intra-articular extension through the radiocarpal articulation, Right wrist fracture - splinted. Frequent falls - PT to evaluate safety of her gait obesity - BMI 34 Chronic lower ext lymphedema - lymphedema OT CKD stage 3-4 - monitor renal fx. Seen by nephrology Hyperlipidemia CAD s/p BETSEY - she has been concerned about brillinta and has not filled it recently, needs antiplatelet, will order plavix Chronic diastolic Congestive heart failure S/p right nephrectomy H/o Cervical cancer s/p TAHBSO Aortic stenosis - with falls, c The left ventricular systolic function is normal and the ejection fraction is within normal range. The Ejection Fraction is 55-60%. anemia Moderate protein calorie malnutrition - Paranoid behavior - mild cognitive impairment dementia with behavioral disorder Problems Medical Problems: (1) Left wrist sprain Status: Acute Brief Hospital Course Allergies Allergies Coded Allergies Type Severity Reaction Last Updated Verified No Known Drug Allergies 03/02/14 No Vital Signs Vital Signs Date Time Temp Pulse Resp B/P (MAP) Pulse Ox O2 Delivery O2 Flow Rate FiO2 12/31/19 08:33 88 131/59 12/31/19 07:25 Nasal Cannula 2.0 12/31/19 07:00 98.3 16 97 98.3 Lab Results Laboratory Tests Test 12/30/19 06:40 12/30/19 09:50 White Blood Count 9.7 x10^3/uL (4.0-11.0) Red Blood Count 3.89 x10^6/uL (3.50-5.40) Hemoglobin 11.4 g/dL (12.0-15.5) Hematocrit 35.9 % (36.0-47.0) Mean Corpuscular Volume 92 fL (79-100) Mean Corpuscular Hemoglobin 29 pg (25-35) Mean Corpuscular Hemoglobin Concent 32 g/dL (31-37) Red Cell Distribution Width 17.7 % (11.5-14.5) Platelet Count 225 x10^3/uL (140-400) Neutrophils (%) (Auto) 84 % (31-73) Lymphocytes (%) (Auto) 8 % (24-48) Monocytes (%) (Auto) 8 % (0-9) Eosinophils (%) (Auto) 0 % (0-3) Basophils (%) (Auto) 0 % (0-3) Neutrophils # (Auto) 8.1 x10^3/uL (1.8-7.7) Lymphocytes # (Auto) 0.8 x10^3/uL (1.0-4.8) Monocytes # (Auto) 0.8 x10^3/uL (0.0-1.1) Eosinophils # (Auto) 0.0 x10^3/uL (0.0-0.7) Basophils # (Auto) 0.0 x10^3/uL (0.0-0.2) Sodium Level 139 mmol/L (136-145) Potassium Level 4.2 mmol/L (3.5-5.1) Chloride Level 104 mmol/L (98-107) Carbon Dioxide Level 27 mmol/L (21-32) Anion Gap 8 (6-14) Blood Urea Nitrogen 27 mg/dL (7-20) Creatinine 1.5 mg/dL (0.6-1.0) Estimated GFR (Cockcroft-Gault) 32.8 BUN/Creatinine Ratio 18 (6-20) Glucose Level 111 mg/dL (70-99) Calcium Level 9.1 mg/dL (8.5-10.1) Total Bilirubin 0.6 mg/dL (0.2-1.0) Aspartate Amino Transf (AST/SGOT) 18 U/L (15-37) Alanine Aminotransferase (ALT/SGPT) 9 U/L (14-59) Alkaline Phosphatase 112 U/L (46-116) Total Protein 7.0 g/dL (6.4-8.2) Albumin 2.8 g/dL (3.4-5.0) Albumin/Globulin Ratio 0.7 (1.0-1.7) Brief Hospital Course Ms. Campos is a 89 old female, admit wiht wrist pain, fracture and sprain, paranoid behvaior. dementia wtih behavior disorder, better with med adj. meds increased, risperadal BID per psych and PRN Haldol, DC on same Discharge Information Condition at Discharge: Improved Follow Up: Weeks Disposition/Orders: D/C to Another Facility (skilled) Scheduled Allopurinol (Allopurinol) 100 Mg Tablet, 100 MG PO DAILY for gout, (Reported) Entered as Reported by: YONATHAN GARCIA on 10/12/16 2334 Last Action: Continued on 12/26/192010 by VICTORIANO TORRE MD Aspirin (Aspir-Low) 81 Mg Tablet.dr, 1 TAB PO DAILY for blood thinner, #30 Ref 3 (Reported) Entered as Reported by: TELMA BERMEO on 03/02/14 1637 Last Action: Continued on 12/26/192010 by VICTORIANO TORRE MD Citalopram Hydrobromide (Citalopram Hbr) 40 Mg Tablet, 40 MG PO DAILY, (Reported) Entered as Reported by: YVON ABDI on 08/11/17249 Last Action: Converted on 12/26/192010 by VICTORIANO TORRE MD Fexofenadine/Pseudoephedrine (Tova-D 24 Hour Tablet) 1 Each Tab.er.24h, 1 TAB PO DAILY, #30 Ref 2 (Reported) Entered as Reported by: YVON ABDI on 08/11/17249 Furosemide (Furosemide) 40 Mg Tablet, 1 TAB PO DAILY for diuretic, #30 Ref 5 (Reported) Entered as Reported by: TELMA BERMEO on 03/02/14 1637 Last Action: HELD on 12/26/192009 by VICTORIANO TORRE MD Lactobacillus Rhamnosus Gg (Culturelle) 1 Each Cap.sprink, 1 CAP PO BID for Diarrhea for 7 Days, #14 Prescribed by: VICTORIANO TORRE MD on 11/28/18 1115 Last Action: HELD on 12/26/192009 by VICTORIANO TORRE MD Levothyroxine Sodium (Levothyroxine Sodium) 88 Mcg Tablet, 88 MCG PO DAILY, (Reported) Entered as Reported by: YVON ABDI on 08/11/17249 Last Action: Continued on 12/26/192010 by VICTORIANO TORRE MD Metoprolol Tartrate (Metoprolol Tartrate) 25 Mg Tablet, 12.5 MG PO BID for htn, #60 Prescribed by: HYUN DOOLEY on 12/31/19 0958 Pantoprazole Sodium (Pantoprazole Sodium ) 40 Mg Tablet.dr, 40 MG PO DAILY for GERD, (Reported) Entered as Reported by: YONATHAN GARCIA on 10/12/16 2334 Last Action: Continued on 12/26/192010 by VICTORIANO TORRE MD Risperidone (Risperdal) 1 Mg Tablet, 1 MG PO BID for mood, #60 Prescribed by: HYUN DOOLEY on 12/31/19 0959 Simvastatin (Simvastatin) 80 Mg Tablet, 1 TAB PO QHS for lowers cholesterol, #90 Ref 3 (Reported) Entered as Reported by: TELMA BERMEO on 03/02/14 1637 Last Action: Converted on 12/26/192010 by VICTORIANO TORRE MD Ticagrelor (Brilinta) 90 Mg Tablet, 90 MG PO BID for heart, (Reported) Entered as Reported by: RIAZ DIAZ on 11/26/18 2223 Scheduled PRN Haloperidol (Haloperidol) 2 Mg Tablet, 1 TAB PO Q6HRS PRN for DELIRIUM, #60 Prescribed by: HYUN DOOLEY on 12/31/19 0958 Hydrocodone/Apap 5-325 ([place] 5-325 Tablet) 1 Each Tablet, 1 EACH PO PRN Q6HRS PRN for PAIN, #30 as needed for pain Prescribed by: HYUN DOOLEY on 12/31/19 0954 Ibuprofen (Ibuprofen) 600 Mg Tablet, 600 MG PO PRN Q6HRS PRN for PAIN, #20 take with food or milk Prescribed by: KOKO CASSIDY on 12/23/19 0957 Discontinued Medications Cephalexin (Keflex) 500 Mg Capsule, 500 MG PO QID for Cellulitis for 7 Days, #28 Prescribed by: VICTORIANO TORRE MD on 11/28/18 1115 Patient Instructions Patient Instructions > 30 min face to face Justicifation of Admission Dx: Justifications for Admission: Justification of Admission Dx: N/A HYUN DOOLEY MD Dec 31, 2019 10:03
[2019-12-31 11:00] VITALS: BP 128/60
[2019-12-31 15:00] VITALS: BP 111/53
--- NOTE | 2019-12-31 15:11 | PDOC ---
F/U PHYSCH PROG NOTE Subjective: Patient is seen for routine follow-up. Progress is reviewed with nursing staff. No major emotional or behavioral breakdown reported. Reportedly, she is more compliant and oriented. When discussed with the patient, stating she has made up her mind to go to [facility]". [facility] as [facility] away from home with limited freedom. Denies suicidal or homicidal thoughts. Denies auditory or visual hallucinations. No evidence of tasia or hypomania. Objective: 14 point review of system is otherwise negative except for as stated in H&P. Vital Signs: Vital Signs Date Time Temp Pulse Resp B/P (MAP) Pulse Ox O2 Delivery O2 Flow Rate FiO2 12/31/19 11:00 97.9 83 18 128/60 (82) 98 Nasal Cannula 2.0 97.9 Medications: Current Medications Medications (Trade) Dose Ordered Sig/Dimple Start Time Stop Time Status Last Admin Dose Admin Acetaminophen (Tylenol) 650 mg PRN Q6HRS PRN 12/26/19 20:15 12/29/19 05:21 650 MG Allopurinol (Zyloprim) 100 mg DAILY 12/27/19 09:00 12/31/19 08:32 100 MG Aspirin (Ecotrin) 81 mg DAILY08 12/27/19 08:00 12/31/19 08:32 81 MG Bupivacaine HCl/ Epinephrine Bitart (Sensorcaine-Epi 0.25%-1:075793 Mpf) 30 ml STK-MED ONCE 12/29/19 14:24 12/29/19 14:25 DC 12/29/19 15:09 30 ML Cefazolin Sodium/ Dextrose 50 ml @ 100 mls/hr 1X PREOP PRN 12/29/19 14:15 12/30/19 09:21 DC 12/29/19 14:41 100 MLS/HR Citalopram Hydrobromide (CeleXA) 40 mg DAILY 12/27/19 09:00 12/31/19 08:32 40 MG Clopidogrel Bisulfate (Plavix) 75 mg DAILYWBKFT 12/27/19 08:00 12/28/19 16:41 DC 12/28/19 07:53 75 MG Dexamethasone Sodium Phosphate (Decadron) 4 mg STK-MED ONCE 12/29/19 14:48 12/29/19 14:48 DC Enoxaparin Sodium (Lovenox 30mg Syringe) 30 mg Q24H 12/27/19 09:00 12/31/19 08:32 30 MG Fentanyl Citrate (Fentanyl 2ml Vial) 100 mcg STK-MED ONCE 12/29/19 15:58 12/29/19 15:58 DC Haloperidol (Haldol) 2 mg PRN Q6HRS PRN 12/31/19 10:00 Hydromorphone HCl (Dilaudid) 0.5 mg PRN Q10MIN PRN 12/29/19 11:00 12/30/19 10:59 DC Levothyroxine Sodium (Synthroid) 88 mcg DAILY 12/27/19 09:00 12/31/19 08:32 88 MCG Lidocaine HCl (Lidocaine Pf 2% Vial) 5 ml STK-MED ONCE 12/29/19 14:04 12/29/19 14:05 DC Metoprolol Tartrate (Lopressor) 12.5 mg BID 12/28/19 21:00 12/31/19 08:33 12.5 MG Morphine Sulfate (Morphine Sulfate) 2 mg STK-MED ONCE 12/29/19 17:07 12/29/19 17:07 DC Ondansetron HCl (Zofran) 4 mg STK-MED ONCE 12/29/19 14:48 12/29/19 14:48 DC Oxycodone/ Acetaminophen (Percocet 5/325) 2 tab PRN Q4HRS PRN 12/27/19 13:30 Pantoprazole Sodium (Protonix) 40 mg DAILY07 12/27/19 07:00 12/31/19 08:32 40 MG Phenylephrine HCl (PHENYLEPHRINE in 0.9% NACL PF) 1 mg STK-MED ONCE 12/29/19 15:06 12/29/19 15:06 DC Prochlorperazine Edisylate (Compazine) 10 mg STK-MED ONCE 12/29/19 16:13 12/29/19 16:13 DC Propofol (Diprivan) 200 mg STK-MED ONCE 12/29/19 14:04 12/29/19 14:05 DC Ringer's Solution 1,000 ml @ 30 mls/hr Q24H 12/29/19 10:51 12/29/19 22:50 DC 12/29/19 14:20 30 MLS/HR Risperidone (RisperDAL) 1 mg HS 12/29/19 21:30 12/30/19 20:49 1 MG Sevoflurane (Ultane) 30 ml STK-MED ONCE 12/29/19 14:48 12/29/19 14:48 DC Simvastatin (Zocor) 80 mg QHS 12/26/19 21:00 12/30/19 20:50 80 MG Tramadol HCl (Ultram) 50 mg PRN Q6HRS PRN 12/26/19 20:15 12/27/19 09:19 50 MG Physical Exam: Mental Status Exam: Elderly female, appears her stated age Cooperative and interactive but has severe hard of hearing Disoriented Thought processes not linear Denies suicidal or homicidal thoughts. Denies auditory or visual hallucinations. No abnormal perception noted Mood is down Affect is dysthymic Insight fair judgment fair impulse control fair Attention span and concentration fair Recent memory impaired Remote memory intact Physical Exam: Refer to Physician's note. MANAGER CONTRACT: No focal deficit MSK: No EPS, TDK, or abnormal involuntary movements Diagnosis: Unspecified neurocognitive disorder. Rule out major neurocognitive disorder Unspecified delirium Rule out delirium,/metabolic encephalopathy. Assessment: She is a pleasant female struggling with memory issues and paranoid behavior. Apparently, during conversation no paranoia, irritability, or agitati on noted. However, symptomatology and history is consistent with unspecified delirium. Delirium is a fluctuating process which needs to be monitored continuously. In absence of significant behavioral disturbances, or significant paranoia will avoid antipsychotics due to the risk of adverse drug reaction in octogenarian population. However in case of severe behavioral disturbances or significant Paranoia interfering with decision making, a trial of antipsychotics can be given. 12/31/2019: Today, considerably different with respect to mentation from previous days. More oriented and conversant and accepting treatment plan. Plan: Continue risperidone to 1 mg bid for delirium resolution. Continue to monitor for symptomatology and behavioral disturbances. In case of severe behavioral disturbance Haldol 2.5 mg twice a day can be started. Risks, benefits, alternatives are given. Patient is in acceptance with plan. Avoid sundowning. Applied delirium protocol Thank you for involving inpatient care FRANK BURNS MD Dec 31, 2019 15:10
--- NOTE | 2019-12-31 16:50 | NUR ---
Attempt made to call report to Damaris GARCIA. No answer, bilingual secretary stated she would have nurse call back to receive report.
--- NOTE | 2019-12-31 17:02 | NUR ---
Pt. discharged to [facility] via per transportation service. No return call as of yet for report.
== END 2019-12-31 17:57 | DRG 511 ==
LOC: ER 12:18 → 4 NORTH 16:38
PROVIDERS: ADMIT Internal Medicine; ATTEND Internal Medicine
PROC: 0PSH04Z Reposition Right Radius with Internal Fixation Device, Open Approach (ICD-10-PCS; principal; 2019-12-29 14:45)
DX: S52.509A Unspecified fracture of the lower end of unspecified radius, initial encounter for closed fracture (principal); I50.32 Chronic diastolic (congestive) heart failure; E44.0 Moderate protein-calorie malnutrition; F03.91 Unspecified dementia, unspecified severity, with behavioral disturbance; I13.0 Hypertensive heart and chronic kidney disease with heart failure and stage 1 through stage 4 chronic kidney disease, or unspecified chronic kidney disease; N18.4 Chronic kidney disease, stage 4 (severe); C53.9 Malignant neoplasm of cervix uteri, unspecified; D63.1 Anemia in chronic kidney disease; E03.9 Hypothyroidism, unspecified; E66.01 Morbid (severe) obesity due to excess calories; E78.00 Pure hypercholesterolemia, unspecified; E78.5 Hyperlipidemia, unspecified; H91.90 Unspecified hearing loss, unspecified ear; I25.10 Atherosclerotic heart disease of native coronary artery without angina pectoris; I35.0 Nonrheumatic aortic (valve) stenosis; I89.0 Lymphedema, not elsewhere classified; M19.90 Unspecified osteoarthritis, unspecified site; M85.80 Other specified disorders of bone density and structure, unspecified site; R29.6 Repeated falls; S52.571A Other intraarticular fracture of lower end of right radius, initial encounter for closed fracture; S63.502A Unspecified sprain of left wrist, initial encounter; S66.912A Strain of unspecified muscle, fascia and tendon at wrist and hand level, left hand, initial encounter; W18.30XA Fall on same level, unspecified, initial encounter; Z68.34 Body mass index [BMI] 34.0-34.9, adult; Z81.8 Family history of other mental and behavioral disorders; Z82.49 Family history of ischemic heart disease and other diseases of the circulatory system; Z85.41 Personal history of malignant neoplasm of cervix uteri; Z86.73 Personal history of transient ischemic attack (TIA), and cerebral infarction without residual deficits; Z90.5 Acquired absence of kidney; Z90.49 Acquired absence of other specified parts of digestive tract; Z90.710 Acquired absence of both cervix and uterus; Z95.5 Presence of coronary angioplasty implant and graft; F32.9 Major depressive disorder, single episode, unspecified; F41.9 Anxiety disorder, unspecified; K21.9 Gastro-esophageal reflux disease without esophagitis; M10.9 Gout, unspecified; Z20.828 Contact with and (suspected) exposure to other viral communicable diseases
CPT/HCPCS: 29125; 36415; 71045; 73090; 73110; 80048; 80053; 80061; 84443; 85025; 93306; 99284; A7015; J0690; J0780; J1100; J1650; J2270; J2370; J2405; J2704; J3010; J3490; J7120; 97116-GP; 97168-GO; 97530-GO; 97530-GP; 97535-GO; 99285-25; C1713; G0378; U0003-CS

== ENCOUNTER 2020-01-23 10:24 | Inpatient (IN) | payer MEDICARE ==
[~2020-01-23] VITALS: Ht 152.4 cm; Wt 79.1 kg
[~2020-01-23 10:24] MED LIST changes: +HALO2TAB PO; +METO25TA4 PO; +RISP1TAB43 PO
--- NOTE | 2020-01-23 10:38 | PHYS DOC ---
Past Medical History Past Medical History: Cancer, CHF, High Cholesterol, Hypertension, DC Additional Past Medical Histor: lymphEDEMA BLE, CERVIX CA,GOUT, CELLULITIS; aortic stenosis; cervical ca Past Surgical History: Appendectomy, Cancer Surgery, Hysterectomy, Other Additional Past Surgical Histo: LESION ON HER RIGHT LEG REMOVED. cardiac stent; R nephrectomy Smoking Status: Never Smoker Alcohol Use: None Drug Use: None General Adult EDM: Chief Complaint: WEAKNESS/GENERALIZED HPI: HPI: Ro Horta is an 89-year-old white female who presents with a chief complaint of persistent falls. Patient was discharged from the hospital 3 weeks ago having fallen and broken her right wrist. At that time she did hit her head however she reports not losing consciousness. This was unwitnessed fall. The nurse practitioner that saw her through home health referred her here for evaluation and potential admission and placement in a fpc facility. There was significant concern that the patient is on able to care for themselves. Patient's wrist is still very tender. She describes a 3 out of 10 nonradiating pain in her wrist. Patient is a phenomenal historian and is alert and oriented at this time, however patient is a noted history of dementia. Past medical history: Cervical cancer stage III cured 50 years ago, DC 2x 1 year ago. Bilateral lymphedema and cellulitis on lower extremities 25 years. Aortic stenosis. Past surgical history: Abdominal hysterectomy, nephrectomy, femoral bypass Medications: 88 mcg levothyroxine, 20 mg pantoprazole, 40 mg Lasix, allopurinol 100 mg, tramadol. Review of Systems: Review of Systems: Constitutional: Denies fever or chills Eyes: Denies redness or eye pain HENT: Denies nasal congestion or sore throat Respiratory: Denies cough or shortness of breath Cardiovascular: Denies chest pain or palpitations GI: Denies abdominal pain, nausea, or vomiting : Denies dysuria or hematuria Musculoskeletal: Denies back pain or joint pain Integument: Denies rash or skin lesions Neurologic: Denies headache, focal weakness or sensory changes Complete systems were reviewed and found to be within normal limits, except as documented in this note. Heart Score: Risk Factors: Risk Factors: DM, Current or recent (<one month) smoker, HTN, HLP, family history of CAD, obesity. Risk Scores: Score 0 - 3: 2.5% MACE over next 6 weeks - Discharge Home Score 4 - 6: 20.3% MACE over next 6 weeks - Admit for Clinical Observation Score 7 - 10: 72.7% MACE over next 6 weeks - Early Invasive Strategies Current Medications: Home meds: 88 mcg levothyroxine p.o. daily, 20 mg pantoprazole p.o. daily, 40 mg Lasix p.o. daily, allopurinol 100 mg p.o. daily, tramadol as needed. 1 SSRI Allergies: Allergies: Allergies Coded Allergies Type Severity Reaction Last Updated Verified No Known Drug Allergies 03/02/14 No Physical Exam: PE: Constitutional: Well developed, well nourished, no acute distress, non-toxic appearance HENT: Normocephalic, atraumatic. Cranial nerves II through XII grossly intact bilaterally. Eyes: PERRL, EOMI, conjunctiva normal, no discharge Neck: Normal range of motion, no tenderness, supple. No carotid bruits. Lungs & Thorax: Bilateral breath sounds clear to auscultation, no wheezing. Heart: 1+/6 systolic murmur best heard at the right sternal border. Regular rate and rhythm. S1 and S2 normal. S3 and S4 present. Abdomen: Soft, no tenderness. Bowel sounds present all 4 quadrants. No abdominal tenderness to palpation. Skin: Warm, dry, no erythema, no rash. Significant lymphedema and cellulitis bilateral lower extremities, appearing to be chronic. Back: No tenderness, no CVA tenderness Extremities: No tenderness, ROM intact, 4+ pitting edema bilateral lower extremity. Lower extremity pulses not palpated. 2+4 pulses in upper extremities. Neurologic: Alert and oriented X 3, normal motor function, normal sensory function, no focal deficits noted Psychologic: Affect normal, judgment normal. Alert and oriented x3 EKG: EK01-23-2020 at 10:38 AM TN: 128 ms QRS: 94 ms QT: 366 ms QTc: 431 ms Impression: Normal sinus rhythm. Radiology/Procedures: Radiology/Procedures: [] Course & Med Decision Making: Course & Med Decision Making 89-year-old white female with persistent falls. Patient no focal neurological deficits. Differential diagnosis: Leg weakness, -CT head rule out subdural hematoma. -Referral for outpatient management, with a fpc. Blank Disclaimer: Blank Disclaimer: This electronic medical record was generated, in whole or in part, using a voice recognition dictation system. Departure Departure Impression: Primary Impression: Generalized weakness Additional Impression: Acute on chronic renal insufficiency Disposition: ADMITTED INPATIENT Admitting Physician: FRANKLYN Donovan) Condition: STABLE Referrals: ADRIANA ROSARIO MD (PCP) Justicifation of Admission Dx: Justifications for Admission: Justification of Admission Dx: Yes Comments: Generalized weakness, acute on chronic renal insufficiency MILLER KAHN DO Jan 23, 2020 10:38
[2020-01-23 11:05] LABS: BASO # 0.1 x10^3/uL (0.0-0.2); BASO % 1 % (0-3); EOS # 0.4 x10^3/uL (0.0-0.7); EOS % 4 % (0-3); HEMATOCRIT 34.3 % (36.0-47.0); HEMOGLOBIN 11.2 g/dL (12.0-15.5); LYMPH # 1.1 x10^3/uL (1.0-4.8); LYMPH % 12 % (24-48); MEAN CORPUSCULAR HEMOGLOBIN 29 pg (25-35); MEAN CORPUSCULAR HGB CONC 33 g/dL (31-37); MEAN CORPUSCULAR VOLUME 89 fL (79-100); MONO # 0.7 x10^3/uL (0.0-1.1); MONO % 8 % (0-9); NEUT # 7.2 x10^3/uL (1.8-7.7); NEUT % 76 % (31-73); PLATELET COUNT 251 x10^3/uL (140-400); RED BLOOD COUNT 3.86 x10^6/uL (3.50-5.40); WHITE BLOOD COUNT 9.5 x10^3/uL (4.0-11.0)
[2020-01-23 11:18] LABS: CALCIUM 8.7 mg/dL (8.5-10.1); CREATININE 1.9 mg/dL (0.6-1.0); GFR 24.9
[2020-01-23 11:21] LABS: PROTHROMBIN TIME PATIENT 11.6 SEC (11.7-14.0)
[2020-01-23 11:26] LABS: ALBUMIN 2.9 g/dL (3.4-5.0); ALBUMIN/GLOBULIN RATIO 0.7 (1.0-1.7); MAGNESIUM 2.2 mg/dL (1.8-2.4); TOTAL BILIRUBIN 0.3 mg/dL (0.2-1.0); TOTAL PROTEIN 7.2 g/dL (6.4-8.2)
[2020-01-23 11:31] LABS: CREATINE KINASE 68 U/L (26-192)
[2020-01-23 11:32] LABS: POTASSIUM 3.7 mmol/L (3.5-5.1)
--- NOTE | 2020-01-23 11:35 | RAD ---
PORTABLE CHEST 1V 01/23/2020 10:30 AM INDICATION: Weakness COMPARISON: 12/27/2019 TECHNIQUE: Portable frontal view of the chest is provided. FINDINGS: The cardiomediastinal silhouette is within normal limits. Mild perihilar interstitial changes appear stable and likely chronic. No new airspace consolidation. Similar prominence of the right paratracheal stripe. There are no significant pleural effusions. There is no pulmonary vascular congestion. No pneumothorax. No suspicious osseous abnormality. IMPRESSION: Chronic interstitial changes without acute cardiopulmonary process. Electronically signed by: Antionette Boyd MD (01/23/2020 11:32 AM) MICHAEL
--- NOTE | 2020-01-23 11:50 | RAD ---
PQRS Compliance Statement: One or more of the following individualized dose reduction techniques were utilized for this examination: 1. Automated exposure control 2. Adjustment of the mA and/or kV according to patient size 3. Use of iterative reconstruction technique CT head and cervical spine without contrast 01/23/2020 11:17 AM INDICATION: Pain status post fall COMPARISON: CT head and cervical spine 08/10/2017 TECHNIQUE: Multiple axial CT images of the head were obtained from skull base through the vertex without intravenous contrast. Multiple axial CT images of the cervical spine were obtained without intravenous contrast. Coronal and sagittal reformats are provided. FINDINGS: Head: Ventricles, sulci and basal cisterns are prominent compatible with mild to moderate generalized cerebral volume loss. Low-attenuation in the periventricular white matter is suggestive of chronic small vessel ischemic changes. There is no hydrocephalus. Campbell-white matter differentiation is normal. There is no acute intracranial hemorrhage. There is no mass, mass effect or midline shift. Posterior fossa is normal in appearance. Visualized portions of the orbits are normal. There is moderate mucosal thickening of the left maxillary sinus. Postoperative changes are identified from prior sinus decompression. Mastoid air cells are well aerated. Scalp and calvaria are normal. Cervical spine: Skull base is intact. Craniocervical junction is normal in appearance. Atlantoaxial articulation is normal. Vertebral body heights are maintained without evidence for acute fracture. There is minimal antral listhesis of C3 on C4. Grade 1 anterolisthesis of C4 on C5 and C5 on C6. Moderate disc height loss is identified at C4-C5, C5-C6, C6-C7, C7-T1. There is osseous fusion at T1-T2 which is not instrumented. There is osseous fusion of the facet joints from C2 through C4 bilaterally, right greater than left. Moderate to advanced facet arthropathy is noted throughout the cervical spine. Posterior disc osteophyte complex at C6-C7 with moderate uncovertebral joint disease and facet arthropathy results in moderate right and mild left neural foraminal stenosis and mild osseous spinal canal stenosis. There is no prevertebral soft tissue swelling. Thyroid gland is normal in appearance. Visualized portions of the lung apices are normal without evidence for suspicious pulmonary nodule or infiltrate. Suspected vascular structure in the right hilar region is only partially profiled. IMPRESSION: 1. No acute intracranial hemorrhage. 2. Mild to moderate generalized cerebral volume loss. Low-attenuation in the periventricular white matter is suggestive of chronic small vessel ischemic changes. 3. Moderate to advanced cervical spondylosis. No acute fracture of the cervical spine. 4. Suspect a vascular structure in the right suprahilar region partially profiled. This could represent the right hilum although a soft tissue mass remains a differential consideration. If there is persistent clinical concern, further evaluation with chest CT may be of benefit. This appears to have been present on 01/01/2020 although again only partially profiled. Electronically signed by: Antionette Boyd MD (01/23/2020 11:47 AM) [facility]
[2020-01-23] MEDS ORDERED: HYDROcodone/APAP 5/325MG 1 TAB TABLET PO ONE (13:15)
[2020-01-23] MEDS ORDERED: IV NORMAL SALINE 1000ML BAG 1,000 ML IV ONE (13:15)
[2020-01-23] MEDS ORDERED: ONDANSETRON PF 4 MG/2 ML VIAL. IV PRN (13:15)
[2020-01-23] MEDS ORDERED: C.DIFF MED SCREEN BY RX. MC SCH (16:45)
[2020-01-23 19:00] VITALS: BP 130/60
--- NOTE | 2020-01-23 19:11 | HP ---
ADMIT DATE: 01/23/2020 CHIEF COMPLAINT: Weakness. HISTORY OF PRESENT ILLNESS: The patient is a pleasant 89-year-old female who was in the hospital recently. She has apparently been trying to live at home, but she has dementia. She has developed weakness. Three weeks ago, she was in the hospital for falling and breaking her wrist. The caregivers were just concerned that she cannot make it home. I discussed the case with the ER physician. We are going to admit the patient and consult social media strategist for possible long-term care placement. It should be noted that she also has an acute kidney injury with a creatinine of 1.9. Her normal creatinine is 1.4. I suspect she is probably not eating or drinking at home. PAST MEDICAL HISTORY: Cervical cancer, CHF, hyperlipidemia, hypertension, myocardial infarction, appendectomy, hysterectomy, aortic stenosis, lesion from her right leg that was removed, cardiac stents, right nephrectomy. ALLERGIES: None. FAMILY HISTORY: Diabetes. SOCIAL HISTORY: She lives alone. She does not drink, smoke or take drugs. She is retired. MEDICATIONS: Reviewed, please refer to the [facility]AD. REVIEW OF SYSTEMS: Unable to obtain. The patient is too confused. PHYSICAL EXAMINATION: VITALS: Within normal limits and are stable. GENERAL: She is resting with no apparent distress. HEENT: Normal cephalic atraumatic, external auditory canals are patent. Eyes: Extraocular muscles are intact, pupils are equally round and reactive to light and accommodation. MUSCULOSKELETAL: Well developed, well nourished, good range of motion. ENDOCRINE: No thyromegaly was palpated. LYMPHATICS: No cervical chain or axillary nodes were noted. HEMATOPOIETIC: No bruising. NECK: Supple, no JVD, no thyromegaly was noted. LUNGS: Clear to auscultation in all lung mcghee without rhonchi or wheezing. HEART: RRR, S1, S2 present. Peripheral pulses intact, no obvious murmurs were noted. ABDOMEN: Soft, nontender. Positive bowel sounds no organomegaly, normal bowel sounds. EXTREMITIES: Without any cyanosis, clubbing, or edema. Pedal pulses intact, Homans sign is negative. NEUROLOGIC: Normal speech, normal tone. A and O x 3, moves all extremities, no obvious focal deficits. PSYCHIATRIC: Normal affect, normal mood. Stable. SKIN: No ulcerations or rashes, good skin turgor, no jaundice. VASCULAR: Good capillary refill, neurovascular bundle appears to be intact. ASSESSMENT AND PLAN: Probable failure to thrive, perhaps progression of dementia and acute kidney injury with a creatinine of 1.9, which was at 1.4 just 3 weeks ago. The patient has been admitted. We will consult social media strategist for possible long-term care placement or long term or both. IV fluids. Trend labs. Home meds. DVT prophylaxis. Full code. Encourage p.o. intake. Long-term prognosis guarded. She is pleasant, but intermittently confused. KARLENE SHELL DO DR: PHILLY/marybel JOB#: [id number] / [id number]
[2020-01-23] MEDS ORDERED: CITA20TA6 PO (21:14)
[2020-01-23] MEDS ORDERED: TRAM50TA PO (21:26)
[2020-01-23] MEDS ORDERED: RISP1TAB43 PO (21:26)
[2020-01-23 22:59] VITALS: BP 150/57
[2020-01-24 03:00] VITALS: BP 138/59
[2020-01-24 07:24] VITALS: BP 121/57
--- NOTE | 2020-01-24 08:07 | PDOC ---
[employer] PROGRESS NOTE Date of Service DOS: DATE: 01/24/20 TIME: 08:05 Chief Complaint Chief Complaint A/P: Frequent falls - PT to evaluate safety of her gait H/o Bilateral wrist pain - unable to use her walker due to right wrist fracture, will have PT evaluate for platform walker Acute encephalopathy - possibly 2/2 UTI, meds. 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 Given 1L NSS and held lasix 2 doses. monitor renal fx. Seen by nephrology Hyperlipidemia CAD s/p BETSEY - she has been concerned about brillinta and has not filled it recently, needs antiplatelet, will order plavix Chronic diastolic Congestive heart failure S/p right nephrectomy H/o Cervical cancer s/p TAHBSO Aortic stenosis - with falls, could be partially syncope related, will order echocardiogram Anemia - likely of chronic renal disease, will check iron stores Moderate protein calorie malnutrition - will ask nurse educator to see Paranoid behavior - will ask psych to evaluate, may have some mild cognitive impairment FEN - Cardiac diet PPX - lovenox FULL CODE Dispo - Inpatient for frequent falls and inability to care for herself. She has made it clear she does not want permanent SNF placement and is amenable to acute rehab History of Present Illness History of Present Illness Ms Campos is an 87yo F w/ PMHx CAD s/p BETSEY, Congestive heart failure, Chronic kidney disease s/p right nephrectomy, cervical cancer s/p TAHBSO, and aortic stenosis who presents with increased weakness and frequent falls as well as confusion. She notes a mechanical fall resulting in a left wrist injury. Patient was here 3 weeks ago for a fall and a right wrist fracture and was discharged to SNF and was home with home health for almost 3 days before returning. Home health TELEGRAPH OFFICE MANAGER recommended SNF again. Patient has a splint on that wrist. Patient denies any dizziness, chest pain and states her legs went out on her which is not uncommon for her and she fell and landed on her left wrist. Patient describes moderate pain that radiates up to the left forearm that is worse with palpation and movement. Patient denies any focal numbness. Patient does have some limited range of motion in the wrist due to pain. Patient denies hitting her head or having loss of consciousness. CT head and neck negative. Cr 1.9 She is very resistant to discussion of [facility] SNF, but is more open to discussion of acute rehabilitation again. does c/o sore throat, no cough or SOB or recent COVID 19 contacts Admitted for further treatment. Vitals/I&O Vitals/I&O: Vital Signs Date Time Temp Pulse Resp B/P (MAP) Pulse Ox O2 Delivery O2 Flow Rate FiO2 01/24/20 07:24 98.2 86 18 121/57 (78) 97 Room Air 98.2 I & O 01/23/20 01/23/20 01/24/20 15:00 23:00 07:00 Intake Total 200 ml Output Total 0 ml 0 ml Balance 200 ml 0 ml Physical Exam General: Alert, Cooperative Heart: Regular rate, Normal S1, Normal S2 Lungs: Wheezing Abdomen: Normal bowel sounds, Soft Extremities: No clubbing, No cyanosis Skin: No rashes, No breakdown Labs Labs: Laboratory Tests Test 01/23/20 10:53 01/23/20 16:20 White Blood Count 9.5 x10^3/uL (4.0-11.0) Red Blood Count 3.86 x10^6/uL (3.50-5.40) Hemoglobin 11.2 g/dL (12.0-15.5) Hematocrit 34.3 % (36.0-47.0) Mean Corpuscular Volume 89 fL (79-100) Mean Corpuscular Hemoglobin 29 pg (25-35) Mean Corpuscular Hemoglobin Concent 33 g/dL (31-37) Red Cell Distribution Width 18.0 % (11.5-14.5) Platelet Count 251 x10^3/uL (140-400) Neutrophils (%) (Auto) 76 % (31-73) Lymphocytes (%) (Auto) 12 % (24-48) Monocytes (%) (Auto) 8 % (0-9) Eosinophils (%) (Auto) 4 % (0-3) Basophils (%) (Auto) 1 % (0-3) Neutrophils # (Auto) 7.2 x10^3/uL (1.8-7.7) Lymphocytes # (Auto) 1.1 x10^3/uL (1.0-4.8) Monocytes # (Auto) 0.7 x10^3/uL (0.0-1.1) Eosinophils # (Auto) 0.4 x10^3/uL (0.0-0.7) Basophils # (Auto) 0.1 x10^3/uL (0.0-0.2) Prothrombin Time 11.6 SEC (11.7-14.0) Prothromb Time International Ratio 0.9 (0.8-1.1) Activated Partial Thromboplast Time 30 SEC (24-38) Sodium Level 140 mmol/L (136-145) Potassium Level 3.7 mmol/L (3.5-5.1) Chloride Level 104 mmol/L (98-107) Carbon Dioxide Level 27 mmol/L (21-32) Anion Gap 9 (6-14) Blood Urea Nitrogen 38 mg/dL (7-20) Creatinine 1.9 mg/dL (0.6-1.0) Estimated GFR (Cockcroft-Gault) 24.9 BUN/Creatinine Ratio 20 (6-20) Glucose Level 115 mg/dL (70-99) Lactic Acid Level 1.9 mmol/L (0.4-2.0) Calcium Level 8.7 mg/dL (8.5-10.1) Magnesium Level 2.2 mg/dL (1.8-2.4) Total Bilirubin 0.3 mg/dL (0.2-1.0) Aspartate Amino Transf (AST/SGOT) 22 U/L (15-37) Alanine Aminotransferase (ALT/SGPT) 13 U/L (14-59) Alkaline Phosphatase 146 U/L (46-116) Creatine Kinase 68 U/L (26-192) Creatine Kinase MB (Mass) 0.6 ng/mL (0.0-3.6) Creatine Kinase MB Relative Index % (0-4) Troponin I Quantitative < 0.017 ng/mL (0.000-0.055) < 0.017 ng/mL (0.000-0.055) Total Protein 7.2 g/dL (6.4-8.2) Albumin 2.9 g/dL (3.4-5.0) Albumin/Globulin Ratio 0.7 (1.0-1.7) Lipase 133 U/L (73-393) Assessment and Plan Assessmemt and Plan Problems Medical Problems: (1) Acute on chronic renal insufficiency Status: Acute (2) Generalized weakness Status: Acute Comment Review of Relevant I have reviewed the following items javan (where applicable) has been applied. Medications: Current Medications Medications (Trade) Dose Ordered Sig/Dimple Route PRN Reason Start Time Stop Time Status Last Admin Dose Admin Sodium Chloride 1,000 ml @ 1,000 mls/hr 1X ONCE IV 01/23/20 13:15 01/23/20 14:14 DC 01/23/20 13:13 Acetaminophen/ Hydrocodone Bitart (Lortab 5/325) 1 tab 1X ONCE PO 01/23/20 13:15 01/23/20 13:16 DC 01/23/20 13:17 Justifications for Admission Other Justification VICTORIANO TORRE MD Jan 24, 2020 08:07
[2020-01-24] MEDS ORDERED: ONDANSETRON PF 4 MG/2 ML VIAL. IV PRN (08:15)
[2020-01-24] MEDS ORDERED: HALOPERIDOL 2 MG TABLET. PO PRN (08:15)
[2020-01-24] MEDS ORDERED: IBUPROFEN 200 MG TABLET. PO PRN (08:15)
[2020-01-24] MEDS ORDERED: BENZOCAINE/MENTHOL LOZENGE. PO PRN ×2 (08:15→11:30)
[2020-01-24] MEDS: LACTOBACILLUS RHAMNOSUS GG 1 CAPSULE. PO SCH ×2 (10:02→21:30)
[2020-01-24] MEDS: ASPIRIN ENTERIC COATED 81 MG TABLET.DR. PO SCH (10:02)
[2020-01-24] MEDS: PANTOPRAZOLE 40 MG TABLET.DR. PO SCH (10:02)
[2020-01-24] MEDS: TICAGRELOR 90 MG TABLET. PO SCH ×2 (10:03→21:30)
[2020-01-24] MEDS: FUROSEMIDE 40 MG TABLET. PO SCH (10:03)
[2020-01-24] MEDS: LEVOTHYROXINE 88 MCG TABLET PO SCH (10:03)
[2020-01-24] MEDS: METOPROLOL TART IMMED RELEASE 25 MG TABLET. PO SCH ×2 (10:03→21:30)
[2020-01-24] MEDS: ALLOPURINOL 100 MG TABLET. PO SCH (10:03)
[2020-01-24] MEDS: CITALOPRAM 20 MG TABLET. PO SCH (10:04)
[2020-01-24] MEDS: CETIRIZINE HCL 10 MG TABLET. PO SCH (10:05)
[2020-01-24 11:00] VITALS: BP 115/71
[2020-01-24] MEDS: POTASSIUM CHLORIDE 20 MEQ TABLET.ER. PO SCH (13:51)
[2020-01-24] MEDS: HYDROcodone/APAP 5/325MG 1 TAB TABLET PO PRN ×2 (13:54→21:31)
[2020-01-24 15:19] VITALS: BP 138/57
[2020-01-24 15:44] LABS: BILIRUBIN,URINE NEGATIVE (NEG); CLARITY,URINE CLEAR; NITRITE,URINE POSITIVE (NEG); PROTEIN,URINE NEGATIVE (NEG-TRACE); UROBILINOGEN,URINE 0.2 mg/dL (0.2 mg/dL)
[2020-01-24 15:53] LABS: COLOR,URINE STRAW; SQUAMOUS EPITHELIAL CELL,UR MANY /LPF
[2020-01-24 15:54] LABS: BACTERIA,URINE MANY /HPF (0-FEW); WBC,URINE >40 /HPF (0-4)
[2020-01-24 15:56] LABS: RBC,URINE RARE /HPF (0-2)
[2020-01-24] MEDS: cefTRIAXone IV Push 1 GM VIAL. IVP SCH (18:35)
[2020-01-24 19:00] VITALS: BP 112/47
[2020-01-24] MEDS: risperiDONE 1 MG TABLET. PO SCH (21:30)
[2020-01-24] MEDS: SIMVASTATIN 40 MG TABLET. PO SCH (21:31)
[2020-01-24 23:00] VITALS: BP 124/43
[2020-01-25 03:00] VITALS: BP 153/72
[2020-01-25] MEDS: LEVOTHYROXINE 88 MCG TABLET PO SCH (05:39)
[2020-01-25] MEDS: HYDROcodone/APAP 5/325MG 1 TAB TABLET PO PRN ×2 (05:41→20:55)
[2020-01-25 05:50] LABS: BASO # 0.1 x10^3/uL (0.0-0.2); BASO % 1 % (0-3); EOS # 0.3 x10^3/uL (0.0-0.7); EOS % 2 % (0-3); HEMATOCRIT 31.9 % (36.0-47.0); HEMOGLOBIN 10.3 g/dL (12.0-15.5); LYMPH # 0.4 x10^3/uL (1.0-4.8); LYMPH % 3 % (24-48); MEAN CORPUSCULAR HEMOGLOBIN 29 pg (25-35); MEAN CORPUSCULAR HGB CONC 32 g/dL (31-37); MEAN CORPUSCULAR VOLUME 90 fL (79-100); MONO # 0.5 x10^3/uL (0.0-1.1); MONO % 5 % (0-9); NEUT # 10.1 x10^3/uL (1.8-7.7); NEUT % 89 % (31-73); PLATELET COUNT 204 x10^3/uL (140-400); RED BLOOD COUNT 3.55 x10^6/uL (3.50-5.40); WHITE BLOOD COUNT 11.3 x10^3/uL (4.0-11.0)
[2020-01-25 05:58] LABS: CALCIUM 8.4 mg/dL (8.5-10.1); CREATININE 1.5 mg/dL (0.6-1.0); GFR 32.8; POTASSIUM 3.5 mmol/L (3.5-5.1)
[2020-01-25 07:22] VITALS: BP 94/47
[2020-01-25] MEDS: CETIRIZINE HCL 10 MG TABLET. PO SCH (09:22)
[2020-01-25] MEDS: CITALOPRAM 20 MG TABLET. PO SCH (09:22)
[2020-01-25] MEDS: ASPIRIN ENTERIC COATED 81 MG TABLET.DR. PO SCH (09:22)
[2020-01-25] MEDS: PANTOPRAZOLE 40 MG TABLET.DR. PO SCH (09:22)
[2020-01-25] MEDS: POTASSIUM CHLORIDE 20 MEQ TABLET.ER. PO SCH (09:22)
[2020-01-25] MEDS: TICAGRELOR 90 MG TABLET. PO SCH ×2 (09:22→20:55)
[2020-01-25] MEDS: LACTOBACILLUS RHAMNOSUS GG 1 CAPSULE. PO SCH ×2 (09:22→20:55)
[2020-01-25] MEDS: ALLOPURINOL 100 MG TABLET. PO SCH (09:22)
[2020-01-25] MEDS: METOPROLOL TART IMMED RELEASE 25 MG TABLET. PO SCH ×2 (09:23→20:56)
[2020-01-25] MEDS: traMADol 50 MG TABLET PO PRN (10:36)
--- NOTE | 2020-01-25 10:53 | PDOC ---
PROGRESS NOTES Date of Service: DATE: 01/25/20 TIME: 10:52 Chief Complaint Chief Complaint impression Frequent falls - PT to evaluate safety of her gait H/o Bilateral wrist pain - unable to use her walker due to right wrist fracture, will have PT evaluate for platform walker Acute encephalopathy - possibly 2/2 UTI, meds. 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 Given 1L NSS and held lasix 2 doses. monitor renal fx. Seen by nephrology Hyperlipidemia CAD s/p BETSEY - she has been concerned about brillinta and has not filled it recently, needs antiplatelet, will order plavix Chronic diastolic Congestive heart failure S/p right nephrectomy H/o Cervical cancer s/p TAHBSO Aortic stenosis - with falls, could be partially syncope related, will order echocardiogram Anemia - likely of chronic renal disease, will check iron stores Moderate protein calorie malnutrition - will ask laborer general to see Paranoid behavior - will ask psych to evaluate, may have some mild cognitive impairment increased sclerosis along the distal scaphoid which could reflect sequela of nondisplaced fracture. PAST MEDICAL HISTORY: Cervical cancer, CHF, hyperlipidemia, hypertension, myocardial infarction, appendectomy, hysterectomy, aortic stenosis, lesion from her right leg that was removed, cardiac stents, right nephrectomy. plan FEN - Cardiac diet PPX - lovenox FULL CODE Dispo - Inpatient for frequent falls and inability to care for herself. She has made it clear she does not want permanent SNF placement and is amenable to acute rehab ortho consult History of Present Illness History of Present Illness Ms Campos is an 87yo F w/ PMHx CAD s/p BETSEY, Congestive heart failure, Chronic kidney disease s/p right nephrectomy, cervical cancer s/p TAHBSO, and aortic stenosis who presents with increased weakness and frequent falls as well as confusion. She notes a mechanical fall resulting in a left wrist injury. Patient was here 3 weeks ago for a fall and a right wrist fracture and was discharged to SNF and was home with home health for almost 3 days before returning. Home health PEDIATRIC AUDIOLOGIST recommended SNF again. Patient has a splint on that wrist. Patient denies any dizziness, chest pain and states her legs went out on her which is not uncommon for her and she fell and landed on her left wrist. Patient describes moderate pain that radiates up to the left forearm that is worse with palpation and movement. Patient denies any focal numbness. Patient does have some limited range of motion in the wrist due to pain. Patient denies hitting her head or having loss of consciousness. CT head and neck negative. Cr 1.9 She is very resistant to discussion of terminologist SNF, but is more open to discussion of acute rehabilitation again. does c/o sore throat, no cough or SOB or recent COVID 19 contacts Admitted for further treatment. Vitals Vitals Vital Signs Date Time Temp Pulse Resp B/P (MAP) Pulse Ox O2 Delivery O2 Flow Rate FiO2 01/25/20 10:36 Room Air 01/25/20 09:23 91 94/47 01/25/20 07:22 98.4 20 97 98.4 Physical Exam General: Alert, Oriented X3, Cooperative, mild distress Heart: Regular rate, Normal S1, Normal S2 Lungs: Wheezing Abdomen: Normal bowel sounds, Soft, No tenderness Extremities: No clubbing, No cyanosis Skin: No rashes, No breakdown Labs LABS WRIST 2V RIGHT 01/25/2020 10:59 AM INDICATION: Right distal radius fracture status post ORIF with swelling and pain COMPARISON: 12/25/2019 TECHNIQUE: 2 views of the right wrist are provided. FINDINGS/ IMPRESSION: 1. Multiple endplate and screw fixation of the distal radial fracture is identified with improved alignment. There is no lucency surrounding the hardware. No acute fracture surrounding the hardware. 2. There is a persistent mildly displaced ulnar styloid process fracture. 3. There is advanced joint space narrowing with marginal osteophytosis involving the first carpometacarpal joint. 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 4. There is increased sclerosis along the distal scaphoid which could reflect sequela of nondisplaced fracture. Electronically signed by: Antionette Boyd MD (01/25/2020 11:41 AM) [id number] Laboratory Tests Test 01/24/20 15:38 01/25/20 05:15 Urine Collection Type Unknown Urine Color Straw Urine Clarity Clear Urine pH 7.0 (<5.0-8.0) Urine Specific [place] <=1.005 (1.000-1.030) Urine Protein Negative mg/dL (NEG-TRACE) Urine Glucose (UA) Negative mg/dL (NEG) Urine Ketones (Stick) Negative mg/dL (NEG) Urine Blood Negative (NEG) Urine Nitrite Positive (NEG) Urine Bilirubin Negative (NEG) Urine Urobilinogen Dipstick 0.2 mg/dL (0.2 mg/dL) Urine Leukocyte Esterase Large (NEG) Urine RBC Rare /HPF (0-2) Urine WBC >40 /HPF (0-4) Urine Squamous Epithelial Cells Many /LPF Urine Bacteria Many /HPF (0-FEW) White Blood Count 11.3 x10^3/uL (4.0-11.0) Red Blood Count 3.55 x10^6/uL (3.50-5.40) Hemoglobin 10.3 g/dL (12.0-15.5) Hematocrit 31.9 % (36.0-47.0) Mean Corpuscular Volume 90 fL (79-100) Mean Corpuscular Hemoglobin 29 pg (25-35) Mean Corpuscular Hemoglobin Concent 32 g/dL (31-37) Red Cell Distribution Width 18.0 % (11.5-14.5) Platelet Count 204 x10^3/uL (140-400) Neutrophils (%) (Auto) 89 % (31-73) Lymphocytes (%) (Auto) 3 % (24-48) Monocytes (%) (Auto) 5 % (0-9) Eosinophils (%) (Auto) 2 % (0-3) Basophils (%) (Auto) 1 % (0-3) Neutrophils # (Auto) 10.1 x10^3/uL (1.8-7.7) Lymphocytes # (Auto) 0.4 x10^3/uL (1.0-4.8) Monocytes # (Auto) 0.5 x10^3/uL (0.0-1.1) Eosinophils # (Auto) 0.3 x10^3/uL (0.0-0.7) Basophils # (Auto) 0.1 x10^3/uL (0.0-0.2) Sodium Level 143 mmol/L (136-145) Potassium Level 3.5 mmol/L (3.5-5.1) Chloride Level 107 mmol/L (98-107) Carbon Dioxide Level 26 mmol/L (21-32) Anion Gap 10 (6-14) Blood Urea Nitrogen 29 mg/dL (7-20) Creatinine 1.5 mg/dL (0.6-1.0) Estimated GFR (Cockcroft-Gault) 32.8 Glucose Level 108 mg/dL (70-99) Calcium Level 8.4 mg/dL (8.5-10.1) Assessment and Plan Assessmemt and Plan Problems Medical Problems: (1) Acute on chronic renal insufficiency Status: Acute (2) Generalized weakness Status: Acute What Is a Power of Medical Claims Representative? A power of commercial attorney (POA) is a legal document giving one person (the agent or [id number]) the power to act for another person (the principal). The agent can have broad legal authority or limited authority to make legal decisions about the principal's property, finances or medical care. The power of commercial attorney is frequently used in the event of a principal's illness or disability, or when the principal can't be present to sign necessary legal documents for financial transactions. A power of commercial attorney can end for a number of reasons, such as when the principal dies, the principal revokes it, a court invalidates it, the principal divorces their spouse, who happens to be the agent, or the agent can no longer carry out the outlined responsibilities. Conventional POAs lapse when the creator becomes incapacitated, but a durable POA remains in force to enable the agent to manage the creators affairs, and a springing POA comes into effect only if and when the creator of the POA becomes incapacitated. A medical or healthcare POA enables an agent to make medical decisions on behalf of an incapacitated person. Bruce Takeaways A power of commercial attorney (POA) is a legal document giving one person, the agent or oxpyjlol-fe-kolr the power to act for another person, the principal. The agent can have broad legal authority or limited authority to make decisions about the principal's property, finances or medical care. The power of commercial attorney is often used when a principal becomes ill or disabled, or when they can't be present to sign necessary legal documents for financial transactions. Understanding Power of Medical Claims Representative A power of commercial attorney should be considered when planning for long-term care. There are different types of POAs that fall under either a general power of commercial attorney or limited power of commercial attorney. A general power of commercial attorney acts on behalf of the principal in any and all matters, as allowed by the state. The agent under a general POA agreement may be authorized to take care of issues such as handling bank accounts, signing checks, selling property and assets like stocks, f A limited power of commercial attorney gives the agent the power to act on behalf of the principal in specific matters or events. For example, the limited POA may explicitly state that the agent is only allowed to manage the principal's alf accounts. A limited POA may also be limited to a specific period of time (e.g., if the principal will be out of the country for, say, two years). Most doe of commercial attorney documents allow an agent to represent the principal in all property and financial matters as long as the principals mental state of mind is good. If a situation occurs where the principal becomes incapable of making decisions for him or herself, the POA agreement would automatically end. However, someone who wants the POA to remain in effect after the persons health deteriorates would need to sign a durable power of commercial attorney (DPOA). Important:A person appointed as power of commercial attorney is not necessarily an attorn ey. The person could just be a trusted family member, friend, or acquaintance. Understanding the Durable Power of Medical Claims Representative (DPOA) The durable power of commercial attorney (DPOA) remains in control of certain legal, property or financial matters specifically spelled out in the agreement, even after the principal becomes mentally incapacitated. While a DPOA can pay medical bills on behalf of the principal, the durable agent cannot make decisions related to the principal's health (e.g., taking the principal off life support is not up to a DPOA). The principal can sign a durable power of commercial attorney for health care, or healthcare power of commercial attorney (HCPA), if he wants an agent to have the power to make health-related decisions. This document also called a healthcare proxy, outlines the principals consent to give the agent POA privileges in the event of an unfortunate medical condition. The durable POA for healthcare is legally bound to oversee medical care decisions on behalf of the principal. Another type of DPOA is the durable power of commercial attorney for finances, or simply a financial power of commercial attorney. This document allows an agent to manage the business and financial affairs of the principal, such as signing checks, filing tax returns, mailing and depositing Social Security checks and managing investment accounts, in the event, the latter becomes unable to understand or make decisions. To the extent of what the agreement spells out as the agents responsibility, the agent has to carry out the principals wishes to the best of his ability. When the agent acts on behalf of the principal by making investment decisions through the commercial mortgage broker or medical decisions through the healthcare professional, both institutions would ask to see the DPOA. Although the DPOA for both medical and financial matters can be one document, it is good to have separate DPOA for healthcare and finances. Since the DPOA for healthcare will have the principal's personal medical information, it would be inappropriate for the commercial mortgage broker to have it, and the medical staff services manager dont need to know the financial status of the patient either. conditions for which a durable POA may become active are set up in a document called the springing power of commercial attorney. The springing POA defines the kind of event or level of incapacitation that should occur before the DPOA springs into effect. A power of commercial attorney can remain dormant until a negative health occurrence activates it to a DPOA. How Power of Medical Claims Representative Works You can buy or download a power of commercial attorney template. If you do, be sure it is for your state, as requirements differ. However, this document may be too important to leave to the chance that you got the correct form and handled it properly. A better way to start the process of establishing a power of commercial attorney is by locating an commercial attorney who specializes in family law in your state. If commercial attorney's fees are more than you can afford, legal services offices staffed with credentialed attorneys exist in virtually every part of the [place]. Visit the [employer]'s website, which has a "Find Fiberglass Finisher" search function. Clients who qualify will receive pro radha (cost-free) assistance Many states require that the signature of the principal (the person who initiates the POA) be notarized. Some states also require that witnesses' signatures be notarized. The following provisos apply generally, nationwide, and everyone who needs to create a POA should be aware of them: There is no standard POA form for all [address] [place] [address]; state law and procedures vary All states accept some version of the durable power of commercial attorney A few bruce doe cannot be delegated. These include the authority to do the following: Make, amend, or revoke a will Contract a marriage in most states, although a handful of states allow it Vote (but the guardian may request a ballot on behalf of the principal) While the details may differ, the following rules apply coast to coast: Put It in Writing While some regions of the country accept oral POA grants, verbal instruction is not a reliable substitute for getting each of the doe of commercial attorney granted to your agent spelled out [id number] on paper. Written clarity helps to avoid arguments and confusion. Use the Proper Format Many variations of power of commercial attorney forms exist. Some POAs are short-lived; others are meant to last until . Decide what doe you wish to kings and prepare a POA specific to that desire. The POA must also satisfy the requirements of your state. To find a form that will be accepted by a court of law in the state in which you live, perform an internet search, check with an office-supply store or ask a local estate-planning professional to help you. The best option is to use an commercial attorney. Identify the Parties The term for the person granting the POA is the "principal." The individual who receives the power of commercial attorney is called either the "agent" or the "at cckcsh-hv-ypil." Check whether your state requires that you use specific terminology. Delegate the Doe A POA can be as broad or as limited as the principal wishes. However, each of the doe granted must be clear, even if the principal grants the agent "general power of commercial attorney." In other words, the principal cannot kings sweeping authority such as, I delegate all things having to do with my life. Specify Durability In most states, a power of commercial attorney terminates if the principal is incap acitated. If this happens, the only way an agent can keep his or her doe is if the POA was written with an indication that it is "durable," a designation that makes it last for the principal's lifetime unless the principal revokes it. Notarize the POA Many states require doe of commercial attorney to be notarized. Even in states that don't, it is potentially much easier for the agent if a notarys seal and signature are on the document. Record It Not all doe of commercial attorney must be recorded formally by the county in order to be legal. But recording is standard practice for many estate planners and individuals who want to create a record that the document exists. File It Some states require specific kinds of POAs to be filed with a court or gov ernment office before they can be made valid. For instance, [place] requires that any POA used to kings grandparents guardianship over a child must be filed with the juvenile court. It also requires a POA that transfers real estate to be recorded by the [facility] in which the property is located. Choosing a Power of Medical Claims Representative Like the property deed for your house or car, a POA grants immense ownership authority and responsibility. It is literally a matter of life and in the case of a medical POA. And you could find yourself facing financial privation or bankruptcy if you end up with a mishandled or abused durable POA. Therefore, you should choose your agent with the greatest of care to ensure your wishes are carried out to the greatest extent possible. It is critical to name a person who is both trustworthy and capable to serve as your agent. This person will act with the same legal authority you would have, so any mistakes made by your agent may be very difficult to correct. Even worse, depending on the extent of the doe you kings, there may be dangerous potential for self-dealing. An agent may have access to your bank accounts, the power to make gifts and transfer your funds, and the ability to sell your property. Your agent can be any competent adult, including a professional such as an commercial attorney, treasury accountant, or banker. But your agent may also be a family member such as a spouse, adult child or another relative. Naming a family member as your agent saves the fees a professional would charge, and may also keep confidential information about your finances and other private matters in the family." Naming Children as Power of Medical Claims Representative Parents who create POAs very commonly choose adult children to serve as their agents. Compared to naming ones spouse as the agent, the relative youth of the child is an advantage when the purpose of the POA is to relieve an aging parent of the burden of managing the details of financial and investment affairs or provide management for an aging parents affairs should the parent become incapacitated. In these cases, a spouse named as the agent who is near the same age as the person creating the POA may come to suffer the same debilities that led the POAs creator to establish it, defeating its purpose. When the child is honest, capable, and respects the parents desires, this can be the best choice for a POA. When there is more than one child, parents may struggle with the decision of who to select for the role of the agent. This is not a decision to be taken lightly. Your agent named under your POA acts with your authority, so costly financial mistakes resulting from carelessness or lack of financial understanding may be impossible to fix. The same is true of acts that create interfamily conflict by favoring some members over others. Worst of all, when delivered into the wrong hands, a POA can create a veritable license to steal, giving your agent access to your bank accounts and the ability to spend your money and take many other wrongful actions. Children have different characters, skills, and circumstances, and soares selection of children as agents, and of the doe given to them, can avert these dangers. The good news is that you can have multiple POAs naming separate agents and customize them for each joseph skill set, temperament, and ability to act on your behalf. Consider these three bruce factors when choosing which child you want to give important doe to under a POA: 1.Trustworthiness: This is the single most important trait of any agent named under a POA. This includes not just honesty but also reliability in performing tasks that need regular attention, from managing an investment portfolio to paying bills, and diligence in acting according to your wishes. 2.Abilities of each child: Specific abilities of different children may make them best suited to take on particular roles in managing your financial affairs. You can use limited POAs to give different children defined and limited doe over different aspects of your finances. These may include the followin.Managing everyday expenses of the family 4.Receiving income from and paying expenses on real estate 5.Controlling a financial portfolio 6.Managing insurance and annuities 7.Running a [employer] business 8.Multiple agents: More than one agent can be named by a POA, either with the authority to act separately or required to act jointly. Having two children separately authorized to manage routine items can be a convenience if one becomes unavailable for some reason while requiring two to agree on major actions like selling a house can assure family agreement over major decisions. Tip:Say one child is a busy financial expert living in a distant city, while another works part-time and lives conveniently close by. You can have one POA that names the first to manage your investment portfolio and another that names the second to manage your routine daily expenses and pay monthly bills. But naming multiple agents can cause problems if disputes arise between them. For instance, if two children are required to act jointly in managing an investment account but disagree over how to do so, it may be effectively frozen. So when choosing two children to act jointly as agents under a POA, be sure they have not only the skills for the task but personalities to cooperate. Risks of Naming Children as Power of Medical Claims Representative Mistakesand worse, acts of self-dealingcommitted by your agent can be extremely costly. This is especially so with a durable POA that gives broad control over your affairs during a time when you are incapacitated. You must be convinced that the agent will follow your instructions, has the ability to do so, and will pursue your wishes even over the objections of other family members if need be. Never name a child to be your agent as a matter of fairness, to avoid hurt feelings or to preserve family harmony, if you lack trust. The doe are far too important to be granted other than on the merits of trustworthiness and ability. Beware naming a child as your agent if: You experience difficulty, awkwardness, or resistance when explaining to the child the duties to be taken on as your agent under the POA The child may not be available to perform the duties, or not be reliable in doing so due to their own concerns or distractions The child has a history of problems with gambling or substance abuse The child has serious debts or has been irresponsible in managing his/her own finances and affairs The child is engaged in intra-family conflicts that may result is using the doe received under the POA to favor some family members over others Risks of Naming a POA Be aware of the dangers of theft and self-dealing created by a POA, even when your agent is your own child. To minimize the risk of such wrongdoing, in addition to the steps mentioned above, have your POA require your agent to report all actions periodically to an outside democrat, such as the familys treasury accountant or commercial attorney. In other words, trust but verify. A capable commercial attorney can draft your POA to include these safeguards under your states laws. As family circumstances change, periodically review and update the POAs you have created. You can revoke a POA simply by writing a letter that clearly identifies it and states that you revoke it, and delivering the letter to your former agent. (Some states require such a letter to be notarized.) Its a good idea to also send copies to third parties with whom the agent may have acted on your behalf. Then create a new POA and deliver it to your new choice of agent. A power of commercial attorney can provide you with both convenience and protection by giving a trusted individual the legal authority to act on your behalf and in your interests. Adult children who are both fully trustworthy and capable of accomplishing your wishes may make the best agent under your POA. But dont name a person the agent simply because he or she is your child. Be sure your agent is trustworthy and capable as a first requirement, whomever you name. Getting Your Parents' to Create a Power of Medical Claims Representative If you are the child as opposed to the parent in this situation, you face a different set of obstacles. Parents often are reluctant to give others power over their affairs. Moreover, a POA applies to individuals, not couples, so the challenge is to convince each parent to create a POA. If you have a parent who is reluctant to do so, try the following ideas to persuade them. Warn of the dangers of not having POAs. If a parent becomes incapacitated and unable to manage his or her own affairs without a POA in place that enables a named agent to step in and do so, then nobody may have the legal right to do so. For instance, nobody may have the right to take HYUN distributions the parent needs for income or to borrow funds to pay medical bills or to deal with the IRS concerning the parents taxes. It then will be necessary to go to court to seek to be named as a conservator or guardian for the parent, a course that may prove costly and slowand could be contested, causing family conflicts. Suggest customized POAs for their needs. There are many different kinds of POAs, and a person can have more than one. While a general POA enables the agent to act with the authority of the POAs creator in all matters, a special POA can limit that authority to a specific subject, such as managing an investment account, or to a limited period of time, such as while the creator of the POA is traveling abroad. Convince your parents by crafting one or more POAs to meet a parents specific wishes. You can begin by suggesting a special POA to be used only to provide a convenience that the parent will valuesuch as one that enables you to prepare and file the parents tax return and manage the parents dealings with the IRS. A parent who benefits from one POA is more likely to then become open to using others. Appeal to Them Ask parents to create POAs for the sake of everyone in the familyincluding the children and grandchildrenwho may be harmed by the complications and costs that result if a parent is incapacitated without a durable POA in place to manage the parents affairs. Have Safeguards The creator of a POA may, and should, be concerned about the risk that the agent will abuse the doe received under it. Insure against this by having the POA require that the agent periodically report all actions taken to a trusted third democrat whom family members agree upon, such as the familys plumbing service technician or treasury accountant. Or have them name two agents and require they agree on major transactions, such as the sale of a home. Join Them Persons of all ages gain valuable protection from having a durable POA, as one can become unexpectedly incapacitated at any stage of life. One way to encourage a reluctant parent to create a durable POA is to create one for yourself and ask your parents to join you by doing the same. Consult Trusted Advisors Trusted professional advisors, such as a plumbing service technician, treasury accountant, and doctor, can help persuade parents of the wisdom and necessity of adopting POAs. Obtaining POAs from your parents can provide valuable benefits to both them and the entire family. If they are reluctant to [place] doe at once, you may still be able to convince them to do so gradually. But dont delay, or there may be costly consequences. A person must be mentally competent to create a power of commercial attorney. Once a parent loses the capability to manage his or her own affairs it is too late, and court proceedings likely will be necessary. Special Considerations There are many good reasons to make a power of commercial attorney, as it ensures that someone will look after your financial affairs if you become incapacitated. You should choose a trusted family member, a proven friend, or a reputable and honest professional. Remember, however, that signing a power of commercial attorney that grants broad authority to an agent is very much like signing a blank checkso make sure you choose wisely and understand the laws that apply to the document. Justifications for Admission Comment Review of Relevant I have reviewed the following items javan (where applicable) has been applied. Labs Laboratory Tests Test 01/23/20 10:53 01/23/20 16:20 01/24/20 15:38 01/25/20 05:15 White Blood Count 9.5 x10^3/uL (4.0-11.0) 11.3 x10^3/uL (4.0-11.0) Red Blood Count 3.86 x10^6/uL (3.50-5.40) 3.55 x10^6/uL (3.50-5.40) Hemoglobin 11.2 g/dL (12.0-15.5) 10.3 g/dL (12.0-15.5) Hematocrit 34.3 % (36.0-47.0) 31.9 % (36.0-47.0) Mean Corpuscular Volume 89 fL (79-100) 90 fL (79-100) Mean Corpuscular Hemoglobin 29 pg (25-35) 29 pg (25-35) Mean Corpuscular Hemoglobin Concent 33 g/dL (31-37) 32 g/dL (31-37) Red Cell Distribution Width 18.0 % (11.5-14.5) 18.0 % (11.5-14.5) Platelet Count 251 x10^3/uL (140-400) 204 x10^3/uL (140-400) Neutrophils (%) (Auto) 76 % (31-73) 89 % (31-73) Lymphocytes (%) (Auto) 12 % (24-48) 3 % (24-48) Monocytes (%) (Auto) 8 % (0-9) 5 % (0-9) Eosinophils (%) (Auto) 4 % (0-3) 2 % (0-3) Basophils (%) (Auto) 1 % (0-3) 1 % (0-3) Neutrophils # (Auto) 7.2 x10^3/uL (1.8-7.7) 10.1 x10^3/uL (1.8-7.7) Lymphocytes # (Auto) 1.1 x10^3/uL (1.0-4.8) 0.4 x10^3/uL (1.0-4.8) Monocytes # (Auto) 0.7 x10^3/uL (0.0-1.1) 0.5 x10^3/uL (0.0-1.1) Eosinophils # (Auto) 0.4 x10^3/uL (0.0-0.7) 0.3 x10^3/uL (0.0-0.7) Basophils # (Auto) 0.1 x10^3/uL (0.0-0.2) 0.1 x10^3/uL (0.0-0.2) Prothrombin Time 11.6 SEC (11.7-14.0) Prothromb Time International Ratio 0.9 (0.8-1.1) Activated Partial Thromboplast Time 30 SEC (24-38) Sodium Level 140 mmol/L (136-145) 143 mmol/L (136-145) Potassium Level 3.7 mmol/L (3.5-5.1) 3.5 mmol/L (3.5-5.1) Chloride Level 104 mmol/L (98-107) 107 mmol/L (98-107) Carbon Dioxide Level 27 mmol/L (21-32) 26 mmol/L (21-32) Anion Gap 9 (6-14) 10 (6-14) Blood Urea Nitrogen 38 mg/dL (7-20) 29 mg/dL (7-20) Creatinine 1.9 mg/dL (0.6-1.0) 1.5 mg/dL (0.6-1.0) Estimated GFR (Cockcroft-Gault) 24.9 32.8 BUN/Creatinine Ratio 20 (6-20) Glucose Level 115 mg/dL (70-99) 108 mg/dL (70-99) Lactic Acid Level 1.9 mmol/L (0.4-2.0) Calcium Level 8.7 mg/dL (8.5-10.1) 8.4 mg/dL (8.5-10.1) Magnesium Level 2.2 mg/dL (1.8-2.4) Total Bilirubin 0.3 mg/dL (0.2-1.0) Aspartate Amino Transf (AST/SGOT) 22 U/L (15-37) Alanine Aminotransferase (ALT/SGPT) 13 U/L (14-59) Alkaline Phosphatase 146 U/L (46-116) Creatine Kinase 68 U/L (26-192) Creatine Kinase MB (Mass) 0.6 ng/mL (0.0-3.6) Creatine Kinase MB Relative Index % (0-4) Troponin I Quantitative < 0.017 ng/mL (0.000-0.055) < 0.017 ng/mL (0.000-0.055) Total Protein 7.2 g/dL (6.4-8.2) Albumin 2.9 g/dL (3.4-5.0) Albumin/Globulin Ratio 0.7 (1.0-1.7) Lipase 133 U/L (73-393) Urine Collection Type Unknown Urine Color Straw Urine Clarity Clear Urine pH 7.0 (<5.0-8.0) Urine Specific [place] <=1.005 (1.000-1.030) Urine Protein Negative mg/dL (NEG-TRACE) Urine Glucose (UA) Negative mg/dL (NEG) Urine Ketones (Stick) Negative mg/dL (NEG) Urine Blood Negative (NEG) Urine Nitrite Positive (NEG) Urine Bilirubin Negative (NEG) Urine Urobilinogen Dipstick 0.2 mg/dL (0.2 mg/dL) Urine Leukocyte Esterase Large (NEG) Urine RBC Rare /HPF (0-2) Urine WBC >40 /HPF (0-4) Urine Squamous Epithelial Cells Many /LPF Urine Bacteria Many /HPF (0-FEW) Laboratory Tests Test 01/24/20 15:38 01/25/20 05:15 Urine Collection Type Unknown Urine Color Straw Urine Clarity Clear Urine pH 7.0 (<5.0-8.0) Urine Specific [place] <=1.005 (1.000-1.030) Urine Protein Negative mg/dL (NEG-TRACE) Urine Glucose (UA) Negative mg/dL (NEG) Urine Ketones (Stick) Negative mg/dL (NEG) Urine Blood Negative (NEG) Urine Nitrite Positive (NEG) Urine Bilirubin Negative (NEG) Urine Urobilinogen Dipstick 0.2 mg/dL (0.2 mg/dL) Urine Leukocyte Esterase Large (NEG) Urine RBC Rare /HPF (0-2) Urine WBC >40 /HPF (0-4) Urine Squamous Epithelial Cells Many /LPF Urine Bacteria Many /HPF (0-FEW) White Blood Count 11.3 x10^3/uL (4.0-11.0) Red Blood Count 3.55 x10^6/uL (3.50-5.40) Hemoglobin 10.3 g/dL (12.0-15.5) Hematocrit 31.9 % (36.0-47.0) Mean Corpuscular Volume 90 fL (79-100) Mean Corpuscular Hemoglobin 29 pg (25-35) Mean Corpuscular Hemoglobin Concent 32 g/dL (31-37) Red Cell Distribution Width 18.0 % (11.5-14.5) Platelet Count 204 x10^3/uL (140-400) Neutrophils (%) (Auto) 89 % (31-73) Lymphocytes (%) (Auto) 3 % (24-48) Monocytes (%) (Auto) 5 % (0-9) Eosinophils (%) (Auto) 2 % (0-3) Basophils (%) (Auto) 1 % (0-3) Neutrophils # (Auto) 10.1 x10^3/uL (1.8-7.7) Lymphocytes # (Auto) 0.4 x10^3/uL (1.0-4.8) Monocytes # (Auto) 0.5 x10^3/uL (0.0-1.1) Eosinophils # (Auto) 0.3 x10^3/uL (0.0-0.7) Basophils # (Auto) 0.1 x10^3/uL (0.0-0.2) Sodium Level 143 mmol/L (136-145) Potassium Level 3.5 mmol/L (3.5-5.1) Chloride Level 107 mmol/L (98-107) Carbon Dioxide Level 26 mmol/L (21-32) Anion Gap 10 (6-14) Blood Urea Nitrogen 29 mg/dL (7-20) Creatinine 1.5 mg/dL (0.6-1.0) Estimated GFR (Cockcroft-Gault) 32.8 Glucose Level 108 mg/dL (70-99) Calcium Level 8.4 mg/dL (8.5-10.1) Medications Current Medications Sodium Chloride 1,000 ml @ 1,000 mls/hr 1X ONCE IV Last administered on 01/23/20at 13:13; Start 01/23/20 at 13:15; Stop 01/23/20 at 14:14; Status DC Acetaminophen/ Hydrocodone Bitart (Lortab 5/325) 1 tab 1X ONCE PO Last administered on 01/23/20at 13:17; Start 01/23/20 at 13:15; Stop 01/23/20 at 13:16; Status DC Ondansetron HCl (Zofran) 4 mg PRN Q8HRS PRN IV NAUSEA/VOMITING; Start 01/23/20 at 13:15; Stop 01/24/20 at 08:05; Status DC Pharmacy Consult (C.diff Med Screen By Rx) 1 each 1X [facility] ; Start 01/23/20 at 16:45; Status Cancel Ondansetron HCl (Zofran) 4 mg PRN Q4HRS PRN IV NAUSEA/VOMITING; Start 01/24/20 at 08:15 Allopurinol (Zyloprim) 100 mg DAILY PO Last administered on 01/25/20at 09:22; Start 01/24/20 at 09:00 Aspirin (Ecotrin) 81 mg DAILY PO Last administered on 01/25/20at 09:22; Start 01/24/20 at 09:00 Citalopram Hydrobromide (CeleXA) 20 mg DAILY PO Last administered on 01/25/20 09:22; Start 01/24/20 at 09:00 Haloperidol (Haldol) 2 mg PRN Q6HRS PRN PO DELIRIUM; Start 01/24/20 at 08:15 Acetaminophen/ Hydrocodone Bitart (Lortab 5/325) 1 tab PRN Q6HRS PRN PO MODERATE PAIN Last administered on 01/25/20 05:41; Start 01/24/20 at 08:15 Lactobacillus Rhamnosus (Culturelle) 1 cap BID PO Last administered on 01/25/20 09:22; Start 01/24/20 at 09:00 Levothyroxine Sodium (Synthroid) 88 mcg DAILY06 PO Last administered on 01/25/20 05:39; Start 01/24/20 at 10:30 Metoprolol Tartrate (Lopressor) 12.5 mg BID PO Last administered on 01/25/20 09:23; Start 01/24/20 at 09:00 Pantoprazole Sodium (Protonix) 40 mg DAILYAC PO Last administered on 01/25/20 09:22; Start 01/24/20 at 09:00 Risperidone (RisperDAL) 1 mg QHS PO Last administered on 01/24/20 21:30; Start 01/24/20 at 21:00 Ticagrelor (Brilinta) 90 mg BID PO Last administered on 01/25/20 09:22; Start 01/24/20 at 09:00 Tramadol HCl (Ultram) 25 mg PRN BID PRN PO MILD PAIN 1-3 Last administered on 01/25/20 10:36; Start 01/24/20 at 08:15 Simvastatin (Zocor) 80 mg QHS PO Last administered on 01/24/20 21:31; Start 01/24/20 at 21:00 Furosemide (Lasix) 40 mg DAILY PO Last administered on 01/24/20 10:03; Start 01/24/20 at 09:00 Cetirizine HCl (ZyrTEC) 10 mg DAILY PO Last administered on 01/25/20 09:22; Start 01/24/20 at 09:00 Ibuprofen (Motrin) 600 mg PRN Q6HRS PRN PO INFLAMMATION; Start 01/24/20 at 08:15; Stop 01/24/20 at 10:30; Status DC Throat Lozenges (Cepacol Sore Throat Lozenge) 1 liz PRN Q2HRS PRN PO SORE THROAT; Start 01/24/20 at 08:15 Potassium Chloride (Klor-Con) 20 meq DAILYWBKFT PO Last administered on 01/25/20at 09:22; Start 01/24/20 at 11:00 Throat Lozenges (Cepacol Sore Throat Lozenge) 1 liz PRN Q2HRS PRN PO SORE THROAT; Start 01/24/20 at 11:30; Status UNV Ceftriaxone Sodium (Rocephin) 1 gm Q24H IVP Last administered on 01/24/20at 18:35; Start 01/24/20 at 17:00 Active Scripts Active Haloperidol 2 Mg Tablet 1 Tab PO Q6HRS PRN Metoprolol Tartrate 25 Mg Tablet 12.5 Mg PO BID [place] 5-325 Tablet (Acetaminophen/Hydrocodone Bitart) 1 Each Tablet 1 Each PO PRN Q6HRS PRN as needed for pain Ibuprofen 600 Mg Tablet 600 Mg PO PRN Q6HRS PRN take with food or milk Culturelle (Lactobacillus Rhamnosus Gg) 1 Each Cap.sprink 1 Cap PO BID 7 Days Reported Tramadol Hcl 50 Mg Tablet 25 Mg PO BID PRN Risperdal (Risperidone) 1 Mg Tablet 1 Tab PO QHS 30 Days Citalopram Hbr (Citalopram Hydrobromide) 20 Mg Tablet 1 Tab PO DAILY Brilinta (Ticagrelor) 90 Mg Tablet 90 Mg PO BID Tova-D 24 Hour Tablet (Fexofenadine/Pseudoephedrine) 1 Each Tab.er.24h 1 Tab PO DAILY Levothyroxine Sodium 88 Mcg Tablet 88 Mcg PO DAILY Allopurinol 100 Mg Tablet 100 Mg PO DAILY Pantoprazole Sodium (Pantoprazole Sodium) 40 Mg Tablet.dr 40 Mg PO DAILY Aspir-Low (Aspirin) 81 Mg Tablet.dr 1 Tab PO DAILY Simvastatin 80 Mg Tablet 1 Tab PO QHS Furosemide 40 Mg Tablet 1 Tab PO DAILY Vitals/I & O Vital Sign - Last 24 Hours 01/24/20 01/24/20 01/24/20 01/24/20 11:00 13:54 14:54 15:19 Temp 98.1 97.9 98.1 97.9 Pulse 88 79 Resp 18 20 20 16 B/P (MAP) 115/71 (86) 138/57 (84) Pulse Ox 98 98 98 98 O2 Delivery Room Air Room Air Room Air Room Air 01/24/20 01/24/20 01/24/20 01/24/20 19:00 20:00 21:30 21:31 Temp 98.0 98.0 Pulse 78 78 Resp 18 B/P (MAP) 112/47 (68) 112/47 Pulse Ox 96 96 O2 Delivery Room Air Room Air Room Air 01/24/20 01/24/20 01/25/20 01/25/20 22:30 23:00 03:00 05:41 Temp 98.2 97.5 98.2 97.5 Pulse 82 90 Resp 23 21 B/P (MAP) 124/43 (70) 153/72 (99) Pulse Ox 96 95 97 97 O2 Delivery Room Air Room Air Room Air Room Air 01/25/20 01/25/20 01/25/20 01/25/20 06:42 07:22 09:23 10:36 Temp 98.4 98.4 Pulse 91 91 Resp 20 B/P (MAP) 94/47 (63) 94/47 Pulse Ox 97 97 O2 Delivery Room Air Room Air Room Air Intake and Output 01/24/20 01/24/20 01/25/20 15:00 23:00 07:00 Intake Total 420 ml 280 ml Output Total 0 ml Balance 420 ml 280 ml 0 ml Justicifation of Admission Dx: Justifications for Admission: Justification of Admission Dx: Yes KACIE ECHEVERRIA MD Jan 25, 2020 10:53
[2020-01-25 11:07] VITALS: BP 134/46
--- NOTE | 2020-01-25 11:44 | RAD ---
WRIST 2V RIGHT 01/25/2020 10:59 AM INDICATION: Right distal radius fracture status post ORIF with swelling and pain COMPARISON: 12/25/2019 TECHNIQUE: 2 views of the right wrist are provided. FINDINGS/ IMPRESSION: 1. Multiple endplate and screw fixation of the distal radial fracture is identified with improved alignment. There is no lucency surrounding the hardware. No acute fracture surrounding the hardware. 2. There is a persistent mildly displaced ulnar styloid process fracture. 3. There is advanced joint space narrowing with marginal osteophytosis involving the first carpometacarpal joint. 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 4. There is increased sclerosis along the distal scaphoid which could reflect sequela of nondisplaced fracture. Electronically signed by: Antionette Boyd MD (01/25/2020 11:41 AM) [id number]
[2020-01-25] MEDS: FUROSEMIDE 40 MG TABLET. PO SCH (11:59)
[2020-01-25] MEDS: IRON POLYSACCHARIDE COMPLEX 150 MG CAPSULE PO SCH (12:00)
--- NOTE | 2020-01-25 12:31 | CONS ---
DATE OF CONSULTATION: 01/25/2020 PULMONARY CONSULTATION ATTENDING PHYSICIAN: Rojas Martin III, DO REASON FOR CONSULTATION: The patient was seen at the request of Dr. Martin for rehab evaluation. HISTORY OF PRESENT ILLNESS: This is an 89-year-old female patient, has dementia. The patient was admitted about 1 month ago with fracture, right wrist comminuted distal radius. She was in the hospital at the time after a fall. She has been trying to live at home. Caregivers are concerned that she cannot make it home. The patient was admitted for possible long-term care placement. She was found with acute kidney injury with creatinine of 1.9. Her baseline creatinine is 1.4. The patient states she is not eating much at home for the last 3 weeks. The patient with carcinoma of cervix, congestive heart failure, hyperlipidemia, hypertension, myocardial infarction, appendectomy, hysterectomy, aortic stenosis, lesion from right leg that was removed, cardiac stent, right nephrectomy. ALLERGIES: Not known allergic to any medication. FAMILY HISTORY: Diabetes mellitus. She lives alone. She is retired. The patient lives in an apartment; no steps for her to manage. She has been independent at roller walker level until she fell down and sustained fracture of right distal radius around 12/23/2019. She had open reduction and internal fixation and had a cast, but it was removed recently. She complains of significant pain in right wrist. The patient admits tingling and numbness in her feet and hands. PHYSICAL EXAMINATION: On physical examination today revealed an elderly female. She is alert, oriented to place and person, follows commands appropriately, moves all 4 extremities voluntarily. She is protecting the right wrist where she had edema over the dorsal aspect of her right wrist and significant swelling and tenderness to palpation and pain on range of motion. She had crepitus on range of motion of both knee joints with mild knee joint effusion. She had significant edema of her feet and legs and tenderness to palpation over distal parts of both legs. The patient is independent, rolling from side to side. She had equal perception of touch and pinprick sensation bilaterally. Deep tendon reflexes are decreased overall with absent knee and ankle jerks. She had overall 4/5 to 4+/5 grade muscle strength. ASSESSMENT: Elderly female with obesity, degenerative joint disease of both knees, clinical evidence of peripheral neuropathy. The patient with known carcinoma of cervix, congestive heart failure, hyperlipidemia, hypertension, previous myocardial infarction, aortic stenosis, status post cardiac stent and right nephrectomy and chronic renal failure and status post open reduction and internal fixation, right distal radius fracture with continued pain, stiffness, and swelling. Also, history of gouty arthritis. RECOMMENDATION: To obtain x-rays of her right wrist. We will check for serum uric acid level to get her wrist cockup splint, to use ice pack to her right wrist, to get her up as tolerated and to senior living care unit when medically stable for continued care. Dr. Martin, I appreciate asking me to participate in the care of this interesting patient. I will be glad to see her for followup with you on as-needed basis. ULISES NINO MD DR: [facility]/marybel JOB#: [id number] / [id number]
[2020-01-25 12:33] LABS: % BANDS 4 % (0-9); % EOS 6 % (0-5); % LYMPHS 4 % (24-48); % MONOS 4 % (0-10); % SEGS 82 % (35-66); ANISOCYTOSIS SLIGHT; PLT ESTIMATE ADEQUATE (ADEQUATE)
[2020-01-25] MEDS: predniSONE 10 MG TABLET PO SCH (13:18)
[2020-01-25] MEDS ORDERED: IV NORMAL SALINE 500ML BAG 500 ML IV ONE (14:30)
[2020-01-25 15:07] VITALS: BP 115/51
[2020-01-25] MEDS: cefTRIAXone IV Push 1 GM VIAL. IVP SCH (16:22)
[2020-01-25 19:00] VITALS: BP 127/60
[2020-01-25] MEDS: risperiDONE 1 MG TABLET. PO SCH (20:55)
[2020-01-25] MEDS: SIMVASTATIN 40 MG TABLET. PO SCH (20:56)
[2020-01-25] MEDS: DICLOFENAC SODIUM 1% TOPICAL GEL 100GM TUBE. TP SCH (20:57)
[2020-01-25 22:57] VITALS: BP 118/58
[2020-01-26 03:00] VITALS: BP 128/42
[2020-01-26] MEDS: PANTOPRAZOLE 40 MG TABLET.DR. PO SCH (05:15)
[2020-01-26] MEDS: LEVOTHYROXINE 88 MCG TABLET PO SCH (05:16)
[2020-01-26 07:00] VITALS: BP 127/52
--- NOTE | 2020-01-26 07:57 | PDOC ---
PROGRESS NOTES Date of Service: DATE: 01/26/20 TIME: 07:57 Chief Complaint Chief Complaint impression Frequent falls - PT to evaluate safety of her gait H/o Bilateral wrist pain - unable to use her walker due to right wrist fracture, will have PT evaluate for platform walker Acute encephalopathy - possibly 2/2 UTI, meds. 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 Given 1L NSS and held lasix 2 doses. monitor renal fx. Seen by nephrology Hyperlipidemia CAD s/p BETSEY - she has been concerned about brillinta and has not filled it recently, needs antiplatelet, will order plavix Chronic diastolic Congestive heart failure S/p right nephrectomy H/o Cervical cancer s/p TAHBSO Aortic stenosis - with falls, could be partially syncope related, will order echocardiogram Anemia - likely of chronic renal disease, will check iron stores Moderate protein calorie malnutrition - will ask supervisor grips to see Paranoid behavior - will ask psych to evaluate, may have some mild cognitive impairment increased sclerosis along the distal scaphoid which could reflect sequela of nondisplaced fracture. ACUTE GOUT arthritis PAST MEDICAL HISTORY: Cervical cancer, CHF, hyperlipidemia, hypertension, myocardial infarction, appendectomy, hysterectomy, aortic stenosis, lesion from her right leg that was removed, cardiac stents, right nephrectomy. plan FEN - Cardiac diet PPX - lovenox FULL CODE Dispo - Inpatient for frequent falls and inability to care for herself. She has made it clear she does not want permanent SNF placement and is amenable to acute rehab ortho consult po prednisone D/W DR NINO History of Present Illness History of Present Illness Ms Campos is an 87yo F w/ PMHx CAD s/p BETSEY, Congestive heart failure, Chronic kidney disease s/p right nephrectomy, cervical cancer s/p TAHBSO, and aortic stenosis who presents with increased weakness and frequent falls as well as confusion. She notes a mechanical fall resulting in a left wrist injury. Patient was here 3 weeks ago for a fall and a right wrist fracture and was discharged to SNF and was home with home health for almost 3 days before returning. Home health [employer] recommended SNF again. Patient has a splint on that wrist. Patient denies any dizziness, chest pain and states her legs went out on her which is not uncommon for her and she fell and landed on her left wrist. Patient describes moderate pain that radiates up to the left forearm that is worse with palpation and movement. Patient denies any focal numbness. Patient does have some limited range of motion in the wrist due to pain. Patient denies hitting her head or having loss of consciousness. CT head and neck negative. Cr 1.9 She is very resistant to discussion of extermination supervisor SNF, but is more open to discussion of acute rehabilitation again. does c/o sore throat, no cough or SOB or recent COVID 19 contacts Admitted for further treatment. Vitals Vitals Vital Signs Date Time Temp Pulse Resp B/P (MAP) Pulse Ox O2 Delivery O2 Flow Rate FiO2 01/26/20 07:00 97.6 74 18 127/52 (77) 99 Room Air 97.6 Physical Exam General: Alert, Oriented X3, Cooperative, No acute distress, mild distress Heart: Regular rate, Normal S1, Normal S2 Lungs: Clear Abdomen: Normal bowel sounds, Soft, No tenderness Extremities: No clubbing, No cyanosis Skin: No rashes, No breakdown Labs LABS Laboratory Tests Test 01/25/20 15:00 Lactic Acid Level 1.3 mmol/L (0.4-2.0) Assessment and Plan Assessmemt and Plan Problems Medical Problems: (1) Acute on chronic renal insufficiency Status: Acute (2) Generalized weakness Status: Acute Comment Review of Relevant I have reviewed the following items javan (where applicable) has been applied. Labs Laboratory Tests Test 01/24/20 15:38 01/25/20 05:15 01/25/20 15:00 Urine Collection Type Unknown Urine Color Straw Urine Clarity Clear Urine pH 7.0 (<5.0-8.0) Urine Specific George <=1.005 (1.000-1.030) Urine Protein Negative mg/dL (NEG-TRACE) Urine Glucose (UA) Negative mg/dL (NEG) Urine Ketones (Stick) Negative mg/dL (NEG) Urine Blood Negative (NEG) Urine Nitrite Positive (NEG) Urine Bilirubin Negative (NEG) Urine Urobilinogen Dipstick 0.2 mg/dL (0.2 mg/dL) Urine Leukocyte Esterase Large (NEG) Urine RBC Rare /HPF (0-2) Urine WBC >40 /HPF (0-4) Urine Squamous Epithelial Cells Many /LPF Urine Bacteria Many /HPF (0-FEW) White Blood Count 11.3 x10^3/uL (4.0-11.0) Red Blood Count 3.55 x10^6/uL (3.50-5.40) Hemoglobin 10.3 g/dL (12.0-15.5) Hematocrit 31.9 % (36.0-47.0) Mean Corpuscular Volume 90 fL (79-100) Mean Corpuscular Hemoglobin 29 pg (25-35) Mean Corpuscular Hemoglobin Concent 32 g/dL (31-37) Red Cell Distribution Width 18.0 % (11.5-14.5) Platelet Count 204 x10^3/uL (140-400) Neutrophils (%) (Auto) 89 % (31-73) Lymphocytes (%) (Auto) 3 % (24-48) Monocytes (%) (Auto) 5 % (0-9) Eosinophils (%) (Auto) 2 % (0-3) Basophils (%) (Auto) 1 % (0-3) Neutrophils # (Auto) 10.1 x10^3/uL (1.8-7.7) Lymphocytes # (Auto) 0.4 x10^3/uL (1.0-4.8) Monocytes # (Auto) 0.5 x10^3/uL (0.0-1.1) Eosinophils # (Auto) 0.3 x10^3/uL (0.0-0.7) Basophils # (Auto) 0.1 x10^3/uL (0.0-0.2) Segmented Neutrophils % 82 % (35-66) Band Neutrophils % 4 % (0-9) Lymphocytes % 4 % (24-48) Monocytes % 4 % (0-10) Eosinophils % 6 % (0-5) Platelet Estimate Adequate (ADEQUATE) Anisocytosis Slight Sodium Level 143 mmol/L (136-145) Potassium Level 3.5 mmol/L (3.5-5.1) Chloride Level 107 mmol/L (98-107) Carbon Dioxide Level 26 mmol/L (21-32) Anion Gap 10 (6-14) Blood Urea Nitrogen 29 mg/dL (7-20) Creatinine 1.5 mg/dL (0.6-1.0) Estimated GFR (Cockcroft-Gault) 32.8 Glucose Level 108 mg/dL (70-99) Uric Acid 6.9 mg/dL (2.6-6.0) Calcium Level 8.4 mg/dL (8.5-10.1) Lactic Acid Level 1.3 mmol/L (0.4-2.0) Laboratory Tests Test 01/25/20 15:00 Lactic Acid Level 1.3 mmol/L (0.4-2.0) Medications Current Medications Sodium Chloride 1,000 ml @ 1,000 mls/hr 1X ONCE IV Last administered on 01/23/20at 13:13; Start 01/23/20 at 13:15; Stop 01/23/20 at 14:14; Status DC Acetaminophen/ Hydrocodone Bitart (Lortab 5/325) 1 tab 1X ONCE PO Last administered on 01/23/20at 13:17; Start 01/23/20 at 13:15; Stop 01/23/20 at 13:16; Status DC Ondansetron HCl (Zofran) 4 mg PRN Q8HRS PRN IV NAUSEA/VOMITING; Start 01/23/20 at 13:15; Stop 01/24/20 at 08:05; Status DC Pharmacy Consult (C.diff Med Screen By Rx) 1 each 1X MC ; Start 01/23/20 at 16:45; Status Cancel Ondansetron HCl (Zofran) 4 mg PRN Q4HRS PRN IV NAUSEA/VOMITING; Start 01/24/20 at 08:15 Allopurinol (Zyloprim) 100 mg DAILY PO Last administered on 01/25/20at 09:22; Start 01/24/20 at 09:00 Aspirin (Ecotrin) 81 mg DAILY PO Last administered on 01/25/20at 09:22; Start 01/24/20 at 09:00 Citalopram Hydrobromide (CeleXA) 20 mg DAILY PO Last administered on 01/25/20at 09:22; Start 01/24/20 at 09:00 Haloperidol (Haldol) 2 mg PRN Q6HRS PRN PO DELIRIUM; Start 01/24/20 at 08:15 Acetaminophen/ Hydrocodone Bitart (Lortab 5/325) 1 tab PRN Q6HRS PRN PO MODERATE PAIN Last administered on 01/25/20 20:55; Start 01/24/20 at 08:15 Lactobacillus Rhamnosus (Culturelle) 1 cap BID PO Last administered on 01/25/20 20:55; Start 01/24/20 at 09:00 Levothyroxine Sodium (Synthroid) 88 mcg DAILY06 PO Last administered on 01/26/20 05:16; Start 01/24/20 at 10:30 Metoprolol Tartrate (Lopressor) 12.5 mg BID PO Last administered on 01/25/20 20 :56; Start 01/24/20 at 09:00 Pantoprazole Sodium (Protonix) 40 mg DAILYAC PO Last administered on 01/26/20 05:15; Start 01/24/20 at 09:00 Risperidone (RisperDAL) 1 mg QHS PO Last administered on 01/25/20 20:55; Start 01/24/20 at 21:00 Ticagrelor (Brilinta) 90 mg BID PO Last administered on 01/25/20 20:55; Start 01/24/20 at 09:00 Tramadol HCl (Ultram) 25 mg PRN BID PRN PO MILD PAIN 1-3 Last administered on 01/25/20 10:36; Start 01/24/20 at 08:15 Simvastatin (Zocor) 80 mg QHS PO Last administered on 01/25/20 20:56; Start 01/24/20 at 21:00 Furosemide (Lasix) 40 mg DAILY PO Last administered on 01/25/20 11:59; Start 01/24/20 at 09:00 Cetirizine HCl (ZyrTEC) 10 mg DAILY PO Last administered on 01/25/20 09:22; Start 01/24/20 at 09:00 Ibuprofen (Motrin) 600 mg PRN Q6HRS PRN PO INFLAMMATION; Start 01/24/20 at 08:15; Stop 01/24/20 at 10:30; Status DC Throat Lozenges (Cepacol Sore Throat Lozenge) 1 liz PRN Q2HRS PRN PO SORE THROAT; Start 01/24/20 at 08:15 Potassium Chloride (Klor-Con) 20 meq DAILYWBKFT PO Last administered on 01/25/20at 09:22; Start 01/24/20 at 11:00 Throat Lozenges (Cepacol Sore Throat Lozenge) 1 liz PRN Q2HRS PRN PO SORE THROAT; Start 01/24/20 at 11:30; Status UNV Ceftriaxone Sodium (Rocephin) 1 gm Q24H IVP Last administered on 01/25/20at 16:22; Start 01/24/20 at 17:00 Diclofenac Sodium (Voltaren) 1 janet BID TP Last administered on 01/25/20at 20:57; Start 01/25/20 at 21:00 Polysaccharide Iron Complex (Niferex 150) 150 mg DAILY PO Last administered on 01/25/20at 12:00; Start 01/25/20 at 12:00 Prednisone (Prednisone) 10 mg DAILY PO Last administered on 01/25/20at 13:18; Start 01/25/20 at 13:30 Sodium Chloride 500 ml @ 500 mls/hr 1X ONCE IV Last administered on 01/25/20at 15:00; Start 01/25/20 at 14:30; Stop 01/25/20 at 15:29; Status DC Active Scripts Active Haloperidol 2 Mg Tablet 1 Tab PO Q6HRS PRN Metoprolol Tartrate 25 Mg Tablet 12.5 Mg PO BID Cutler 5-325 Tablet (Acetaminophen/Hydrocodone Bitart) 1 Each Tablet 1 Each PO PRN Q6HRS PRN as needed for pain Ibuprofen 600 Mg Tablet 600 Mg PO PRN Q6HRS PRN take with food or milk Culturelle (Lactobacillus Rhamnosus Gg) 1 Each Cap.sprink 1 Cap PO BID 7 Days Reported Tramadol Hcl 50 Mg Tablet 25 Mg PO BID PRN Risperdal (Risperidone) 1 Mg Tablet 1 Tab PO QHS 30 Days Citalopram Hbr (Citalopram Hydrobromide) 20 Mg Tablet 1 Tab PO DAILY Brilinta (Ticagrelor) 90 Mg Tablet 90 Mg PO BID Tova-D 24 Hour Tablet (Fexofenadine/Pseudoephedrine) 1 Each Tab.er.24h 1 Tab PO DAILY Levothyroxine Sodium 88 Mcg Tablet 88 Mcg PO DAILY Allopurinol 100 Mg Tablet 100 Mg PO DAILY Pantoprazole Sodium (Pantoprazole Sodium) 40 Mg Tablet.dr 40 Mg PO DAILY Aspir-Low (Aspirin) 81 Mg Tablet.dr 1 Tab PO DAILY Simvastatin 80 Mg Tablet 1 Tab PO QHS Furosemide 40 Mg Tablet 1 Tab PO DAILY Vitals/I & O Vital Sign - Last 24 Hours 01/25/20 01/25/20 01/25/20 01/25/20 08:00 09:23 10:36 11:07 Temp 98.2 98.2 Pulse 91 85 Resp 22 B/P (MAP) 94/47 134/46 (75) Pulse Ox 96 O2 Delivery Room Air Room Air Room Air 01/25/20 01/25/20 01/25/20 01/25/20 11:54 15:07 19:00 20:00 Temp 99.8 98.0 99.8 98.0 Pulse 87 67 Resp 24 20 B/P (MAP) 115/51 (72) 127/60 (82) Pulse Ox 93 98 O2 Delivery Room Air Room Air Room Air Room Air 01/25/20 01/25/20 01/25/20 01/25/20 20:55 20:56 21:55 22:57 Temp 97.8 97.8 Pulse 67 67 Resp 18 18 20 B/P (MAP) 127/60 118/58 (78) Pulse Ox 98 95 95 O2 Delivery Room Air Room Air Room Air 01/26/20 01/26/20 03:00 07:00 Temp 97.5 97.6 97.5 97.6 Pulse 66 74 Resp 22 18 B/P (MAP) 128/42 (70) 127/52 (77) Pulse Ox 100 99 O2 Delivery Room Air Room Air Intake and Output 01/25/20 01/25/20 01/26/20 15:00 23:00 07:00 Intake Total 360 ml 760 ml Output Total 0 ml 0 ml Balance 360 ml 760 ml 0 ml Justicifation of Admission Dx: Justifications for Admission: Justification of Admission Dx: Yes KACIE ECHEVERRIA MD Jan 26, 2020 07:57
--- NOTE | 2020-01-26 08:46 | PDOC ---
PROGRESS NOTES Date of Service DATE: 01/26/20 TIME: 08:41 Subjective Subjective She feels better with her right wrist pain. Objective Objective Vital Signs Date Time Temp Pulse Resp B/P (MAP) Pulse Ox O2 Delivery O2 Flow Rate FiO2 01/26/20 07:00 97.6 74 18 127/52 (77) 99 Room Air 97.6 Intake and Output 01/26/20 07:00 Intake Total 1120 ml Output Total 0 ml Balance 1120 ml Intake Oral 620 ml IV Total 500 ml Output Urine Total 0 ml # Voids 3 Physical Exam Physical Exam She is alert,supine in bed and she is independent with bed mobility and she continues with bilateral foot and leg edema and she is using right upper extremity without pain using wrist cock up splint. 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 Assessment Assessment Problems Medical Problems: (1) Acute on chronic renal insufficiency Status: Acute (2) Generalized weakness Status: Acute Plan Plan of Care To consider injecting her knees if knee joint pain is interfering with her m obility. As he uric acid level is 6.9,I have started her on prednisone in place of colchichine as her creatinine remains elevated Comment Review of Relevant I have reviewed the following items javan (where applicable) has been applied. Labs Laboratory Tests Test 01/24/20 15:38 01/25/20 05:15 01/25/20 15:00 Urine Collection Type Unknown Urine Color Straw Urine Clarity Clear Urine pH 7.0 (<5.0-8.0) Urine Specific Earp <=1.005 (1.000-1.030) Urine Protein Negative mg/dL (NEG-TRACE) Urine Glucose (UA) Negative mg/dL (NEG) Urine Ketones (Stick) Negative mg/dL (NEG) Urine Blood Negative (NEG) Urine Nitrite Positive (NEG) Urine Bilirubin Negative (NEG) Urine Urobilinogen Dipstick 0.2 mg/dL (0.2 mg/dL) Urine Leukocyte Esterase Large (NEG) Urine RBC Rare /HPF (0-2) Urine WBC >40 /HPF (0-4) Urine Squamous Epithelial Cells Many /LPF Urine Bacteria Many /HPF (0-FEW) White Blood Count 11.3 x10^3/uL (4.0-11.0) Red Blood Count 3.55 x10^6/uL (3.50-5.40) Hemoglobin 10.3 g/dL (12.0-15.5) Hematocrit 31.9 % (36.0-47.0) Mean Corpuscular Volume 90 fL (79-100) Mean Corpuscular Hemoglobin 29 pg (25-35) Mean Corpuscular Hemoglobin Concent 32 g/dL (31-37) Red Cell Distribution Width 18.0 % (11.5-14.5) Platelet Count 204 x10^3/uL (140-400) Neutrophils (%) (Auto) 89 % (31-73) Lymphocytes (%) (Auto) 3 % (24-48) Monocytes (%) (Auto) 5 % (0-9) Eosinophils (%) (Auto) 2 % (0-3) Basophils (%) (Auto) 1 % (0-3) Neutrophils # (Auto) 10.1 x10^3/uL (1.8-7.7) Lymphocytes # (Auto) 0.4 x10^3/uL (1.0-4.8) Monocytes # (Auto) 0.5 x10^3/uL (0.0-1.1) Eosinophils # (Auto) 0.3 x10^3/uL (0.0-0.7) Basophils # (Auto) 0.1 x10^3/uL (0.0-0.2) Segmented Neutrophils % 82 % (35-66) Band Neutrophils % 4 % (0-9) Lymphocytes % 4 % (24-48) Monocytes % 4 % (0-10) Eosinophils % 6 % (0-5) Platelet Estimate Adequate (ADEQUATE) Anisocytosis Slight Sodium Level 143 mmol/L (136-145) Potassium Level 3.5 mmol/L (3.5-5.1) Chloride Level 107 mmol/L (98-107) Carbon Dioxide Level 26 mmol/L (21-32) Anion Gap 10 (6-14) Blood Urea Nitrogen 29 mg/dL (7-20) Creatinine 1.5 mg/dL (0.6-1.0) Estimated GFR (Cockcroft-Gault) 32.8 Glucose Level 108 mg/dL (70-99) Uric Acid 6.9 mg/dL (2.6-6.0) Calcium Level 8.4 mg/dL (8.5-10.1) Lactic Acid Level 1.3 mmol/L (0.4-2.0) Laboratory Tests Test 01/25/20 15:00 Lactic Acid Level 1.3 mmol/L (0.4-2.0) Medications Current Medications Sodium Chloride 1,000 ml @ 1,000 mls/hr 1X ONCE IV Last administered on 01/23/20at 13:13; Start 01/23/20 at 13:15; Stop 01/23/20 at 14:14; Status DC Acetaminophen/ Hydrocodone Bitart (Lortab 5/325) 1 tab 1X ONCE PO Last administered on 01/23/20at 13:17; Start 01/23/20 at 13:15; Stop 01/23/20 at 13:16; Status DC Ondansetron HCl (Zofran) 4 mg PRN Q8HRS PRN IV NAUSEA/VOMITING; Start 01/23/20 at 13:15; Stop 01/24/20 at 08:05; Status DC Pharmacy Consult (C.diff Med Screen By Rx) 1 each 1X [facility] ; Start 01/23/20 at 16:45; Status Cancel Ondansetron HCl (Zofran) 4 mg PRN Q4HRS PRN IV NAUSEA/VOMITING; Start 01/24/20 at 08:15 Allopurinol (Zyloprim) 100 mg DAILY PO Last administered on 01/25/20at 09:22; Start 01/24/20 at 09:00 Aspirin (Ecotrin) 81 mg DAILY PO Last administered on 01/25/20at 09:22; Start 01/24/20 at 09:00 Citalopram Hydrobromide (CeleXA) 20 mg DAILY PO Last administered on 01/25/20at 09:22; Start 01/24/20 at 09:00 Haloperidol (Haldol) 2 mg PRN Q6HRS PRN PO DELIRIUM; Start 01/24/20 at 08:15 Acetaminophen/ Hydrocodone Bitart (Lortab 5/325) 1 tab PRN Q6HRS PRN PO MODERATE PAIN Last administered on 01/25/20at 20:55; Start 01/24/20 at 08:15 Lactobacillus Rhamnosus (Culturelle) 1 cap BID PO Last administered on 01/25/20at 20:55; Start 01/24/20 at 09:00 Levothyroxine Sodium (Synthroid) 88 mcg DAILY06 PO Last administered on 01/26/20 05:16; Start 01/24/20 at 10:30 Metoprolol Tartrate (Lopressor) 12.5 mg BID PO Last administered on 01/25/20 20:56; Start 01/24/20 at 09:00 Pantoprazole Sodium (Protonix) 40 mg DAILYAC PO Last administered on 01/26/20 05:15; Start 01/24/20 at 09:00 Risperidone (RisperDAL) 1 mg QHS PO Last administered on 01/25/20 20:55; Start 01/24/20 at 21:00 Ticagrelor (Brilinta) 90 mg BID PO Last administered on 01/25/20 20:55; Start 01/24/20 at 09:00 Tramadol HCl (Ultram) 25 mg PRN BID PRN PO MILD PAIN 1-3 Last administered on 01/25/20 10:36; Start 01/24/20 at 08:15 Simvastatin (Zocor) 80 mg QHS PO Last administered on 01/25/20 20:56; Start 01/24/20 at 21:00 Furosemide (Lasix) 40 mg DAILY PO Last administered on 01/25/20 11:59; Start 01/24/20 at 09:00 Cetirizine HCl (ZyrTEC) 10 mg DAILY PO Last administered on 01/25/20 09:22; Start 01/24/20 at 09:00 Ibuprofen (Motrin) 600 mg PRN Q6HRS PRN PO INFLAMMATION; Start 01/24/20 at 08:15; Stop 01/24/20 at 10:30; Status DC Throat Lozenges (Cepacol Sore Throat Lozenge) 1 liz PRN Q2HRS PRN PO SORE THROAT; Start 01/24/20 at 08:15 Potassium Chloride (Klor-Con) 20 meq DAILYWBKFT PO Last administered on 01/25/20 09:22; Start 01/24/20 at 11:00 Throat Lozenges (Cepacol Sore Throat Lozenge) 1 liz PRN Q2HRS PRN PO SORE THROAT; Start 01/24/20 at 11:30; Status UNV Ceftriaxone Sodium (Rocephin) 1 gm Q24H IVP Last administered on 01/25/20at 16:22; Start 01/24/20 at 17:00 Diclofenac Sodium (Voltaren) 1 janet BID TP Last administered on 01/25/20at 20:57; Start 01/25/20 at 21:00 Polysaccharide Iron Complex (Niferex 150) 150 mg DAILY PO Last administered on 01/25/20at 12:00; Start 01/25/20 at 12:00 Prednisone (Prednisone) 10 mg DAILY PO Last administered on 01/25/20at 13:18; Start 01/25/20 at 13:30 Sodium Chloride 500 ml @ 500 mls/hr 1X ONCE IV Last administered on 01/25/20at 15:00; Start 01/25/20 at 14:30; Stop 01/25/20 at 15:29; Status DC Active Scripts Active Haloperidol 2 Mg Tablet 1 Tab PO Q6HRS PRN Metoprolol Tartrate 25 Mg Tablet 12.5 Mg PO BID [place] 5-325 Tablet (Acetaminophen/Hydrocodone Bitart) 1 Each Tablet 1 Each PO PRN Q6HRS PRN as needed for pain Ibuprofen 600 Mg Tablet 600 Mg PO PRN Q6HRS PRN take with food or milk Culturelle (Lactobacillus Rhamnosus Gg) 1 Each Cap.sprink 1 Cap PO BID 7 Days Reported Tramadol Hcl 50 Mg Tablet 25 Mg PO BID PRN Risperdal (Risperidone) 1 Mg Tablet 1 Tab PO QHS 30 Days Citalopram Hbr (Citalopram Hydrobromide) 20 Mg Tablet 1 Tab PO DAILY Brilinta (Ticagrelor) 90 Mg Tablet 90 Mg PO BID Tova-D 24 Hour Tablet (Fexofenadine/Pseudoephedrine) 1 Each Tab.er.24h 1 Tab PO DAILY Levothyroxine Sodium 88 Mcg Tablet 88 Mcg PO DAILY Allopurinol 100 Mg Tablet 100 Mg PO DAILY Pantoprazole Sodium (Pantoprazole Sodium) 40 Mg Tablet.dr 40 Mg PO DAILY Aspir-Low (Aspirin) 81 Mg Tablet.dr 1 Tab PO DAILY Simvastatin 80 Mg Tablet 1 Tab PO QHS Furosemide 40 Mg Tablet 1 Tab PO DAILY Vitals/I & O Vital Sign - Last 24 Hours 01/25/20 01/25/20 01/25/20 01/25/20 09:23 10:36 11:07 11:54 Temp 98.2 98.2 Pulse 91 85 Resp 22 B/P (MAP) 94/47 134/46 (75) Pulse Ox 96 O2 Delivery Room Air Room Air Room Air 01/25/20 01/25/20 01/25/20 01/25/20 15:07 19:00 20:00 20:55 Temp 99.8 98.0 99.8 98.0 Pulse 87 67 Resp 24 20 18 B/P (MAP) 115/51 (72) 127/60 (82) Pulse Ox 93 98 98 O2 Delivery Room Air Room Air Room Air Room Air 01/25/20 01/25/20 01/25/20 01/26/20 20:56 21:55 22:57 03:00 Temp 97.8 97.5 97.8 97.5 Pulse 67 67 66 Resp 18 20 22 B/P (MAP) 127/60 118/58 (78) 128/42 (70) Pulse Ox 95 95 100 O2 Delivery Room Air Room Air Room Air 01/26/20 07:00 Temp 97.6 97.6 Pulse 74 Resp 18 B/P (MAP) 127/52 (77) Pulse Ox 99 O2 Delivery Room Air Intake and Output 01/25/20 01/25/20 01/26/20 15:00 23:00 07:00 Intake Total 360 ml 760 ml Output Total 0 ml 0 ml Balance 360 ml 760 ml 0 ml Justifications for Admission Other Justification ULISES NINO MD Jan 26, 2020 08:46
[2020-01-26] MEDS: CETIRIZINE HCL 10 MG TABLET. PO SCH (10:35)
[2020-01-26] MEDS: LACTOBACILLUS RHAMNOSUS GG 1 CAPSULE. PO SCH ×2 (10:35→20:40)
[2020-01-26] MEDS: ALLOPURINOL 100 MG TABLET. PO SCH (10:35)
[2020-01-26] MEDS: FUROSEMIDE 40 MG TABLET. PO SCH (10:35)
[2020-01-26] MEDS: POTASSIUM CHLORIDE 20 MEQ TABLET.ER. PO SCH (10:35)
[2020-01-26] MEDS: IRON POLYSACCHARIDE COMPLEX 150 MG CAPSULE PO SCH (10:35)
[2020-01-26] MEDS: CITALOPRAM 20 MG TABLET. PO SCH (10:35)
[2020-01-26] MEDS: DICLOFENAC SODIUM 1% TOPICAL GEL 100GM TUBE. TP SCH ×2 (10:36→20:46)
[2020-01-26] MEDS: ASPIRIN ENTERIC COATED 81 MG TABLET.DR. PO SCH (10:36)
[2020-01-26] MEDS: METOPROLOL TART IMMED RELEASE 25 MG TABLET. PO SCH ×2 (10:36→20:41)
[2020-01-26] MEDS: TICAGRELOR 90 MG TABLET. PO SCH ×2 (10:36→20:40)
[2020-01-26] MEDS: predniSONE 10 MG TABLET PO SCH (10:36)
[2020-01-26 11:00] VITALS: BP 138/59
[2020-01-26] MEDS: HYDROcodone/APAP 5/325MG 1 TAB TABLET PO PRN ×2 (12:15→23:38)
--- NOTE | 2020-01-26 12:39 | NUR ---
KEVON following. Spoke with RN and reviewed chart. Spoke with pt. Pt lives alone. Pt on room air and IV Rocephin. KEVON requested a COVID test for placement. Pt recently discharged from [facility] and was home 3 days prior to returning to the hospital. PT/OT recommendation is for SNU. Pt is a 2 person transfer. Pt agreeable to [facility] but declined to return to [place]. KEVON phoned and faxed referral to Sylvie at [facility] as they take pt's [employer] and pt agreeable. Pt does not want to go to [facility]. Pt Choice of Vendor form completed. KEVON following. Addendum: 01/26/20 at 1315 by LATANYA LUND Pt accepted clinically at [facility]. Waiting on insurance authorization and results of COVID test.
[2020-01-26 15:00] VITALS: BP 130/56
[2020-01-26] MEDS: cefTRIAXone IV Push 1 GM VIAL. IVP SCH (16:55)
--- NOTE | 2020-01-26 17:00 | PDOC2 ---
CONSULT Date of Consult Date of Consult DATE: 01/26/20 TIME: 16:55 Reason for Consult Reason for Consult: Patient with sutures in place in right wrist from previous wrist surgery. Referring Physician Referring Physician: Dr. Martin Identification/Chief Complaint Chief Complaint Status post right wrist surgery Source Source: Caregiver, Chart review History of Present Illness Reason for Visit: Sutures remain intact in right wrist from reported ORIF approximately 3 weeks ago Past Medical History Cardiovascular: CAD, CHF, HTN, Hyperlipidemia, Aortic stenosis Pulmonary: Bronchitis CENTRAL NERVOUS SYSTEM: CVA GI: GERD Heme/Onc: Anemia NOS, Cancer Psych: Depression Musculoskeletal: Osteoarthritis, Other Rheumatologic: Gout Infectious disease: Other Renal/: Chronic renal insuff Endocrine: Hypothyroidism Past Surgical History Past Surgical History: Appendectomy, Other Family History Family History: Hypertension Social History ALCOHOL: none Drugs: None Lives: Alone Current Problem List Problem List Problems Medical Problems: (1) Acute on chronic renal insufficiency Status: Acute (2) Generalized weakness Status: Acute Current Medications Current Medications Current Medications Sodium Chloride 1,000 ml @ 1,000 mls/hr 1X ONCE IV Last administered on 01/23/20at 13:13; Start 01/23/20 at 13:15; Stop 01/23/20 at 14:14; Status DC Acetaminophen/ Hydrocodone Bitart (Lortab 5/325) 1 tab 1X ONCE PO Last administered on 01/23/20at 13:17; Start 01/23/20 at 13:15; Stop 01/23/20 at 13:16; Status DC Ondansetron HCl (Zofran) 4 mg PRN Q8HRS PRN IV NAUSEA/VOMITING; Start 01/23/20 at 13:15; Stop 01/24/20 at 08:05; Status DC Pharmacy Consult (C.diff Med Screen By Rx) 1 each 1X [facility] ; Start 01/23/20 at 16:45; Status Cancel Ondansetron HCl (Zofran) 4 mg PRN Q4HRS PRN IV NAUSEA/VOMITING; Start 01/24/20 at 08:15 Allopurinol (Zyloprim) 100 mg DAILY PO Last administered on 01/26/20at 10:35; Start 01/24/20 at 09:00 Aspirin (Ecotrin) 81 mg DAILY PO Last administered on 01/26/20at 10:36; Start 01/24/20 at 09:00 Citalopram Hydrobromide (CeleXA) 20 mg DAILY PO Last administered on 01/26/20 10:35; Start 01/24/20 at 09:00 Haloperidol (Haldol) 2 mg PRN Q6HRS PRN PO DELIRIUM; Start 01/24/20 at 08:15 Acetaminophen/ Hydrocodone Bitart (Lortab 5/325) 1 tab PRN Q6HRS PRN PO MODERATE PAIN Last administered on 01/26/20 12:15; Start 01/24/20 at 08:15 Lactobacillus Rhamnosus (Culturelle) 1 cap BID PO Last administered on 01/26/20 10:35; Start 01/24/20 at 09:00 Levothyroxine Sodium (Synthroid) 88 mcg DAILY06 PO Last administered on 01/26/20 05:16; Start 01/24/20 at 10:30 Metoprolol Tartrate (Lopressor) 12.5 mg BID PO Last administered on 01/26/20 10:36; Start 01/24/20 at 09:00 Pantoprazole Sodium (Protonix) 40 mg DAILYAC PO Last administered on 01/26/20 05:15; Start 01/24/20 at 09:00 Risperidone (RisperDAL) 1 mg QHS PO Last administered on 01/25/20 20:55; Start 01/24/20 at 21:00 Ticagrelor (Brilinta) 90 mg BID PO Last administered on 01/26/20 10:36; Start 01/24/20 at 09:00 Tramadol HCl (Ultram) 25 mg PRN BID PRN PO MILD PAIN 1-3 Last administered on 01/25/20 10:36; Start 01/24/20 at 08:15 Simvastatin (Zocor) 80 mg QHS PO Last administered on 01/25/20 20:56; Start 01/24/20 at 21:00 Furosemide (Lasix) 40 mg DAILY PO Last administered on 01/26/20 10:35; Start 01/24/20 at 09:00 Cetirizine HCl (ZyrTEC) 10 mg DAILY PO Last administered on 01/26/20 10:35; Start 01/24/20 at 09:00 Ibuprofen (Motrin) 600 mg PRN Q6HRS PRN PO INFLAMMATION; Start 01/24/20 at 08:15; Stop 01/24/20 at 10:30; Status DC Throat Lozenges (Cepacol Sore Throat Lozenge) 1 liz PRN Q2HRS PRN PO SORE THROAT; Start 01/24/20 at 08:15 Potassium Chloride (Klor-Con) 20 meq DAILYWBKFT PO Last administered on 01/26/20at 10:35; Start 01/24/20 at 11:00 Throat Lozenges (Cepacol Sore Throat Lozenge) 1 liz PRN Q2HRS PRN PO SORE THROAT; Start 01/24/20 at 11:30; Status UNV Ceftriaxone Sodium (Rocephin) 1 gm Q24H IVP Last administered on 01/25/20at 16:22; Start 01/24/20 at 17:00 Diclofenac Sodium (Voltaren) 1 janet BID TP Last administered on 01/26/20at 10:36; Start 01/25/20 at 21:00 Polysaccharide Iron Complex (Niferex 150) 150 mg DAILY PO Last administered on 01/26/20at 10:35; Start 01/25/20 at 12:00 Prednisone (Prednisone) 10 mg DAILY PO Last administered on 01/26/20at 10:36; Start 01/25/20 at 13:30 Sodium Chloride 500 ml @ 500 mls/hr 1X ONCE IV Last administered on 01/25/20at 15:00; Start 01/25/20 at 14:30; Stop 01/25/20 at 15:29; Status DC Active Scripts Active Haloperidol 2 Mg Tablet 1 Tab PO Q6HRS PRN Metoprolol Tartrate 25 Mg Tablet 12.5 Mg PO BID [place] 5-325 Tablet (Acetaminophen/Hydrocodone Bitart) 1 Each Tablet 1 Each PO PRN Q6HRS PRN as needed for pain Ibuprofen 600 Mg Tablet 600 Mg PO PRN Q6HRS PRN take with food or milk Culturelle (Lactobacillus Rhamnosus Gg) 1 Each Cap.sprink 1 Cap PO BID 7 Days Reported Tramadol Hcl 50 Mg Tablet 25 Mg PO BID PRN Risperdal (Risperidone) 1 Mg Tablet 1 Tab PO QHS 30 Days Citalopram Hbr (Citalopram Hydrobromide) 20 Mg Tablet 1 Tab PO DAILY Brilinta (Ticagrelor) 90 Mg Tablet 90 Mg PO BID Tova-D 24 Hour Tablet (Fexofenadine/Pseudoephedrine) 1 Each Tab.er.24h 1 Tab PO DAILY Levothyroxine Sodium 88 Mcg Tablet 88 Mcg PO DAILY Allopurinol 100 Mg Tablet 100 Mg PO DAILY Pantoprazole Sodium (Pantoprazole Sodium) 40 Mg Tablet.dr 40 Mg PO DAILY Aspir-Low (Aspirin) 81 Mg Tablet.dr 1 Tab PO DAILY Simvastatin 80 Mg Tablet 1 Tab PO QHS Furosemide 40 Mg Tablet 1 Tab PO DAILY Allergies Allergies: Coded Allergies: No Known Drug Allergies (Unverified , 03/02/14) Physical Exam General: Alert, Cooperative, No acute distress MUSCULOSKELETAL: Abnormal exam of right (Right wrist with cock-up wrist splint in place and dressing over sutures from previous surgery.) Vitals VITALS Vital Signs Date Time Temp Pulse Resp B/P (MAP) Pulse Ox O2 Delivery O2 Flow Rate FiO2 01/26/20 15:00 97.5 69 18 130/56 (80) 99 Room Air 97.5 Labs Labs Laboratory Tests Test 01/25/20 05:15 01/25/20 15:00 White Blood Count 11.3 x10^3/uL (4.0-11.0) Red Blood Count 3.55 x10^6/uL (3.50-5.40) Hemoglobin 10.3 g/dL (12.0-15.5) Hematocrit 31.9 % (36.0-47.0) Mean Corpuscular Volume 90 fL (79-100) Mean Corpuscular Hemoglobin 29 pg (25-35) Mean Corpuscular Hemoglobin Concent 32 g/dL (31-37) Red Cell Distribution Width 18.0 % (11.5-14.5) Platelet Count 204 x10^3/uL (140-400) Neutrophils (%) (Auto) 89 % (31-73) Lymphocytes (%) (Auto) 3 % (24-48) Monocytes (%) (Auto) 5 % (0-9) Eosinophils (%) (Auto) 2 % (0-3) Basophils (%) (Auto) 1 % (0-3) Neutrophils # (Auto) 10.1 x10^3/uL (1.8-7.7) Lymphocytes # (Auto) 0.4 x10^3/uL (1.0-4.8) Monocytes # (Auto) 0.5 x10^3/uL (0.0-1.1) Eosinophils # (Auto) 0.3 x10^3/uL (0.0-0.7) Basophils # (Auto) 0.1 x10^3/uL (0.0-0.2) Segmented Neutrophils % 82 % (35-66) Band Neutrophils % 4 % (0-9) Lymphocytes % 4 % (24-48) Monocytes % 4 % (0-10) Eosinophils % 6 % (0-5) Platelet Estimate Adequate (ADEQUATE) Anisocytosis Slight Sodium Level 143 mmol/L (136-145) Potassium Level 3.5 mmol/L (3.5-5.1) Chloride Level 107 mmol/L (98-107) Carbon Dioxide Level 26 mmol/L (21-32) Anion Gap 10 (6-14) Blood Urea Nitrogen 29 mg/dL (7-20) Creatinine 1.5 mg/dL (0.6-1.0) Estimated GFR (Cockcroft-Gault) 32.8 Glucose Level 108 mg/dL (70-99) Uric Acid 6.9 mg/dL (2.6-6.0) Calcium Level 8.4 mg/dL (8.5-10.1) Lactic Acid Level 1.3 mmol/L (0.4-2.0) Assessment/Plan Assessment/Plan Patient has had right wrist surgery reportedly in the last [address] Ghosh. Motor and sensation intact distally at the right wrist and fingers Dressing is dry and intact. Sutures remain in place with no drainage or redness or swelling. We will discuss with Dr. Ghosh and we will remove sutures tomorrow. TAIWO COHN APRN Jan 26, 2020 17:00
[2020-01-26 19:00] VITALS: BP 143/54
[2020-01-26] MEDS: SIMVASTATIN 40 MG TABLET. PO SCH (20:40)
[2020-01-26] MEDS: risperiDONE 1 MG TABLET. PO SCH (20:40)
[2020-01-26] MEDS: traMADol 50 MG TABLET PO PRN (20:42)
[2020-01-26 23:00] VITALS: BP 114/50
[2020-01-27 03:00] VITALS: BP 123/59
--- NOTE | 2020-01-27 04:27 | EKG ---
[facility] [address] [place] [address] Test Date: 2020-01-23 Test Time: 10:38:01 Pat Name: NICKIE STAFFORD Department: Room: Gender: F [employer]: : 1930 Requested By: MILLER KAHN Order Number: [id number] Reading MD: Measurements Intervals [place] Rate: 81 P: 27 MT: 184 QRS: 18 QRSD: 94 T: 23 QT: 366 QTc: 431 Interpretive Statements SINUS RHYTHM NORMAL ECG RI6.02 No previous ECG available for comparison
[2020-01-27] MEDS: PANTOPRAZOLE 40 MG TABLET.DR. PO SCH (06:24)
[2020-01-27] MEDS: LEVOTHYROXINE 88 MCG TABLET PO SCH (06:24)
[2020-01-27 07:15] VITALS: BP 143/54
--- NOTE | 2020-01-27 07:43 | PDOC ---
ORTHO PROGRESS NOTES DATE: 01/27/20 TIME: 07:40 Subjective Patient would like to have sutures removed, and states minimal pain at this time. Post-op Day: 18 Procedure ORIF right distal radius Vitals Vital Signs Date Time Temp Pulse Resp B/P (MAP) Pulse Ox O2 Delivery O2 Flow Rate FiO2 01/27/20 03:00 97.5 66 18 123/59 (80) 99 97.5 01/27/20 00:38 Room Air Labs Laboratory Tests Test 01/25/20 15:00 Lactic Acid Level 1.3 mmol/L (0.4-2.0) Notes Awake and alert Assessment and Plan Per patient report she is approximately 18 days postop from her ORIF of right distal radius fracture. Motor and sensation intact distally at the right hand fingers wrist and elbow. Dressing was removed and the sutures were removed with Steri-Strips placed. No redness or drainage noted. Follow-up in clinic with Ortho in approximately [address] Ghosh. TAIWO COHN APRN Jan 27, 2020 07:43
[2020-01-27] MEDS: TICAGRELOR 90 MG TABLET. PO SCH ×2 (08:10→21:34)
[2020-01-27] MEDS: ALLOPURINOL 100 MG TABLET. PO SCH (08:10)
[2020-01-27] MEDS: predniSONE 10 MG TABLET PO SCH (08:10)
[2020-01-27] MEDS: ASPIRIN ENTERIC COATED 81 MG TABLET.DR. PO SCH (08:10)
[2020-01-27] MEDS: METOPROLOL TART IMMED RELEASE 25 MG TABLET. PO SCH ×2 (08:10→21:35)
[2020-01-27] MEDS: FUROSEMIDE 40 MG TABLET. PO SCH (08:11)
[2020-01-27] MEDS: CITALOPRAM 20 MG TABLET. PO SCH (08:11)
[2020-01-27] MEDS: CETIRIZINE HCL 10 MG TABLET. PO SCH (08:11)
[2020-01-27] MEDS: LACTOBACILLUS RHAMNOSUS GG 1 CAPSULE. PO SCH ×2 (08:11→21:33)
[2020-01-27] MEDS: IRON POLYSACCHARIDE COMPLEX 150 MG CAPSULE PO SCH (08:11)
[2020-01-27] MEDS: POTASSIUM CHLORIDE 20 MEQ TABLET.ER. PO SCH (08:11)
--- NOTE | 2020-01-27 08:45 | PDOC ---
PROGRESS NOTES Date of Service: DATE: 01/27/20 TIME: 08:44 Chief Complaint Chief Complaint impression Frequent falls - PT to evaluate safety of her gait H/o Bilateral wrist pain - unable to use her walker due to right wrist fracture, will have PT evaluate for platform walker Acute encephalopathy - possibly 2/2 UTI, meds. 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 Given 1L NSS and held lasix 2 doses. monitor renal fx. Seen by nephrology Hyperlipidemia CAD s/p BETSEY - she has been concerned about brillinta and has not filled it recently, needs antiplatelet, will order plavix Chronic diastolic Congestive heart failure S/p right nephrectomy H/o Cervical cancer s/p TAHBSO Aortic stenosis - with falls, could be partially syncope related, will order echocardiogram Anemia - likely of chronic renal disease, will check iron stores Moderate protein calorie malnutrition - will ask it solutions architect to see Paranoid behavior - will ask psych to evaluate, may have some mild cognitive impairment increased sclerosis along the distal scaphoid which could reflect sequela of nondisplaced fracture. ACUTE GOUT arthritis PAST MEDICAL HISTORY: Cervical cancer, CHF, hyperlipidemia, hypertension, myocardial infarction, appendectomy, hysterectomy, aortic stenosis, lesion from her right leg that was removed, cardiac stents, right nephrectomy. plan FEN - Cardiac diet PPX - lovenox FULL CODE Dispo - Inpatient for frequent falls and inability to care for herself. She has made it clear she does not want permanent SNF placement and is amenable to acute rehab ortho consult po prednisone D/W DR NINO 01/26 buckling of left knee while up walking that makes her fall. NEEDS SNF History of Present Illness History of Present Illness Ms Campos is an 87yo F w/ PMHx CAD s/p BETSEY, Congestive heart failure, Chronic kidney disease s/p right nephrectomy, cervical cancer s/p TAHBSO, and aortic stenosis who presents with increased weakness and frequent falls as well as confusion. She notes a mechanical fall resulting in a left wrist injury. Patient was here 3 weeks ago for a fall and a right wrist fracture and was discharged to SNF and was home with home health for almost 3 days before returning. 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 Patient has a splint on that wrist. Patient denies any dizziness, chest pain and states her legs went out on her which is not uncommon for her and she fell and landed on her left wrist. Patient describes moderate pain that radiates up to the left forearm that is worse with palpation and movement. Patient denies any focal numbness. Patient does have some limited range of motion in the wrist due to pain. Patient denies hitting her head or having loss of consciousness. CT head and neck negative. Cr 1.9 She is very resistant to discussion of senior care SNF, but is more open to discussion of acute rehabilitation again. does c/o sore throat, no cough or SOB or recent COVID 19 contacts Admitted for further treatment. Vitals Vitals Vital Signs Date Time Temp Pulse Resp B/P (MAP) Pulse Ox O2 Delivery O2 Flow Rate FiO2 01/27/20 08:10 64 143/54 01/27/20 07:15 97.4 16 95 Room Air 97.4 Physical Exam General: Alert, Oriented X3, Cooperative, No acute distress Heart: Regular rate, Normal S1, Normal S2 Lungs: Clear Abdomen: Normal bowel sounds, Soft, No tenderness Extremities: No clubbing, No cyanosis Skin: No rashes, No breakdown Assessment and Plan Assessmemt and Plan Problems Medical Problems: (1) Acute on chronic renal insufficiency Status: Acute (2) Generalized weakness Status: Acute Comment Review of Relevant I have reviewed the following items javan (where applicable) has been applied. Labs Laboratory Tests Test 01/25/20 15:00 Lactic Acid Level 1.3 mmol/L (0.4-2.0) Microbiology 01/24/20 Urine Culture - Preliminary, Resulted 01/23/20 Blood Culture - Preliminary, Resulted NO GROWTH AFTER 1 DAY Medications Current Medications Sodium Chloride 1,000 ml @ 1,000 mls/hr 1X ONCE IV Last administered on 01/23/20at 13:13; Start 01/23/20 at 13:15; Stop 01/23/20 at 14:14; Status DC Acetaminophen/ Hydrocodone Bitart (Lortab 5/325) 1 tab 1X ONCE PO Last administered on 01/23/20at 13:17; Start 01/23/20 at 13:15; Stop 01/23/20 at 13:16; Status DC Ondansetron HCl (Zofran) 4 mg PRN Q8HRS PRN IV NAUSEA/VOMITING; Start 01/23/20 at 13:15; Stop 01/24/20 at 08:05; Status DC Pharmacy Consult (C.diff Med Screen By Rx) 1 each 1X [facility] ; Start 01/23/20 at 16:45; Status Cancel Ondansetron HCl (Zofran) 4 mg PRN Q4HRS PRN IV NAUSEA/VOMITING; Start 01/24/20 at 08:15 Allopurinol (Zyloprim) 100 mg DAILY PO Last administered on 01/27/20 08:10; Start 01/24/20 at 09:00 Aspirin (Ecotrin) 81 mg DAILY PO Last administered on 01/27/20 08:10; Start 01/24/20 at 09:00 Citalopram Hydrobromide (CeleXA) 20 mg DAILY PO Last administered on 01/27/20at 08:11; Start 01/24/20 at 09:00 Haloperidol (Haldol) 2 mg PRN Q6HRS PRN PO DELIRIUM; Start 01/24/20 at 08:15 Acetaminophen/ Hydrocodone Bitart (Lortab 5/325) 1 tab PRN Q6HRS PRN PO MODERATE PAIN Last administered on 01/26/20at 23:38; Start 01/24/20 at 08:15 Lactobacillus Rhamnosus (Culturelle) 1 cap BID PO Last administered on 01/27/20 08:11; Start 01/24/20 at 09:00 Levothyroxine Sodium (Synthroid) 88 mcg DAILY06 PO Last administered on 01/27/20 06:24; Start 01/24/20 at 10:30 Metoprolol Tartrate (Lopressor) 12.5 mg BID PO Last administered on 01/27/20 08:10; Start 01/24/20 at 09:00 Pantoprazole Sodium (Protonix) 40 mg DAILYAC PO Last administered on 01/27/20 06:24; Start 01/24/20 at 09:00 Risperidone (RisperDAL) 1 mg QHS PO Last administered on 01/26/20at 20:40; Start 01/24/20 at 21:00 Ticagrelor (Brilinta) 90 mg BID PO Last administered on 01/27/20 08:10; Start 01/24/20 at 09:00 Tramadol HCl (Ultram) 25 mg PRN BID PRN PO MILD PAIN 1-3 Last administered on 01/26/20 20:42; Start 01/24/20 at 08:15 Simvastatin (Zocor) 80 mg QHS PO Last administered on 01/26/20 20:40; Start 01/24/20 at 21:00 Furosemide (Lasix) 40 mg DAILY PO Last administered on 01/27/20 08:11; Start 01/24/20 at 09:00 Cetirizine HCl (ZyrTEC) 10 mg DAILY PO Last administered on 01/27/20 08:11; Start 01/24/20 at 09:00 Ibuprofen (Motrin) 600 mg PRN Q6HRS PRN PO INFLAMMATION; Start 01/24/20 at 0 8:15; Stop 01/24/20 at 10:30; Status DC Throat Lozenges (Cepacol Sore Throat Lozenge) 1 liz PRN Q2HRS PRN PO SORE THROAT; Start 01/24/20 at 08:15 Potassium Chloride (Klor-Con) 20 meq DAILYWBKFT PO Last administered on 01/27/20 08:11; Start 01/24/20 at 11:00 Throat Lozenges (Cepacol Sore Throat Lozenge) 1 liz PRN Q2HRS PRN PO SORE THROAT; Start 01/24/20 at 11:30; Status UNV Ceftriaxone Sodium (Rocephin) 1 gm Q24H IVP Last administered on 01/26/20 16:55; Start 01/24/20 at 17:00 Diclofenac Sodium (Voltaren) 1 janet BID TP Last administered on 01/26/20 20:46; Start 01/25/20 at 21:00 Polysaccharide Iron Complex (Niferex 150) 150 mg DAILY PO Last administered on 01/27/20 08:11; Start 01/25/20 at 12:00 Prednisone (Prednisone) 10 mg DAILY PO Last administered on 01/27/20 08:10; Start 01/25/20 at 13:30 Sodium Chloride 500 ml @ 500 mls/hr 1X ONCE IV Last administered on 01/25/20at 15:00; Start 01/25/20 at 14:30; Stop 01/25/20 at 15:29; Status DC Active Scripts Active Haloperidol 2 Mg Tablet 1 Tab PO Q6HRS PRN Metoprolol Tartrate 25 Mg Tablet 12.5 Mg PO BID [place] 5-325 Tablet (Acetaminophen/Hydrocodone Bitart) 1 Each Tablet 1 Each PO PRN Q6HRS PRN as needed for pain Ibuprofen 600 Mg Tablet 600 Mg PO PRN Q6HRS PRN take with food or milk Culturelle (Lactobacillus Rhamnosus Gg) 1 Each Cap.sprink 1 Cap PO BID 7 Days Reported Tramadol Hcl 50 Mg Tablet 25 Mg PO BID PRN Risperdal (Risperidone) 1 Mg Tablet 1 Tab PO QHS 30 Days Citalopram Hbr (Citalopram Hydrobromide) 20 Mg Tablet 1 Tab PO DAILY Brilinta (Ticagrelor) 90 Mg Tablet 90 Mg PO BID Tova-D 24 Hour Tablet (Fexofenadine/Pseudoephedrine) 1 Each Tab.er.24h 1 Tab PO DAILY Levothyroxine Sodium 88 Mcg Tablet 88 Mcg PO DAILY Allopurinol 100 Mg Tablet 100 Mg PO DAILY Pantoprazole Sodium (Pantoprazole Sodium) 40 Mg Tablet. 40 Mg PO DAILY Aspir-Low (Aspirin) 81 Mg Tablet. 1 Tab PO DAILY Simvastatin 80 Mg Tablet 1 Tab PO QHS Furosemide 40 Mg Tablet 1 Tab PO DAILY Vitals/I & O Vital Sign - Last 24 Hours 01/26/20 01/26/20 01/26/20 01/26/20 10:36 11:00 12:15 13:22 Temp 97.4 97.4 Pulse 74 61 Resp 18 B/P (MAP) 127/52 138/59 (85) Pulse Ox 99 O2 Delivery Room Air Room Air Room Air 01/26/20 01/26/20 01/26/20 01/26/20 15:00 19:00 20:00 20:41 Temp 97.5 97.4 97.5 97.4 Pulse 69 68 61 Resp 18 18 B/P (MAP) 130/56 (80) 143/54 (83) 124/52 Pulse Ox 99 97 O2 Delivery Room Air Room Air 01/26/20 01/26/20 01/26/20 01/26/20 20:42 21:42 23:00 23:38 Temp 97.7 97.7 Pulse 62 Resp 18 16 18 18 B/P (MAP) 114/50 (71) Pulse Ox 99 99 98 99 O2 Delivery Room Air Room Air Room Air 01/27/20 01/27/20 01/27/20 01/27/20 00:38 03:00 07:15 08:10 Temp 97.5 97.4 97.5 97.4 Pulse 66 64 64 Resp 16 18 16 B/P (MAP) 123/59 (80) 143/54 (83) 143/54 Pulse Ox 99 99 95 O2 Delivery Room Air Room Air Intake and Output 01/26/20 01/26/20 01/27/20 15:00 23:00 07:00 Intake Total 250 ml 270 ml 60 ml Output Total 250 ml Balance 250 ml 270 ml -190 ml Justicifation of Admission Dx: Justifications for Admission: Justification of Admission Dx: Yes KACIE ECHEVERRIA MD Jan 27, 2020 08:45
--- NOTE | 2020-01-27 08:58 | PDOC ---
PROGRESS NOTES Date of Service DATE: 01/27/20 TIME: 08:54 Subjective Subjective She feels better but admits left knee pain while up and reports of buckling of left knee while up walking that makes her fall. Objective Objective Vital Signs Date Time Temp Pulse Resp B/P (MAP) Pulse Ox O2 Delivery O2 Flow Rate FiO2 01/27/20 08:10 64 143/54 01/27/20 07:15 97.4 16 95 Room Air 97.4 Intake and Output 01/27/20 07:00 Intake Total 580 ml Output Total 250 ml Balance 330 ml Intake Oral 580 ml Output Urine Total 250 ml # Voids 6 Physical Exam Physical Exam She is alert,sitting at edge of bed and she got up and walked with roller walker in her room but limps on her left knee secondary to pain. She continues with significant edema with skin changes of her feet and legs. Right wrist pain is under control with wrist brace and oral prednisone for gout. Assessment Assessment Problems Medical Problems: (1) Acute on chronic renal insufficiency Status: Acute (2) Generalized weakness Status: Acute Plan Plan of Care To proceed with left knee joint injection and she may need mri scan of left knee if knee buckling persists to rule out meniscal tear. She may be safe to go home with home health follow up. Comment Review of Relevant I have reviewed the following items javan (where applicable) has been applied. Labs Laboratory Tests Test 01/25/20 15:00 Lactic Acid Level 1.3 mmol/L (0.4-2.0) Microbiology 01/24/20 Urine Culture - Preliminary, Resulted 01/23/20 Blood Culture - Preliminary, Resulted NO GROWTH AFTER 1 DAY Medications Current Medications Sodium Chloride 1,000 ml @ 1,000 mls/hr 1X ONCE IV Last administered on 01/23/20at 13:13; Start 01/23/20 at 13:15; Stop 01/23/20 at 14:14; Status DC Acetaminophen/ Hydrocodone Bitart (Lortab 5/325) 1 tab 1X ONCE PO Last administered on 01/23/20at 13:17; Start 01/23/20 at 13:15; Stop 01/23/20 at 13:16; Status DC Ondansetron HCl (Zofran) 4 mg PRN Q8HRS PRN IV NAUSEA/VOMITING; Start 01/23/20 at 13:15; Stop 01/24/20 at 08:05; Status DC Pharmacy Consult (C.diff Med Screen By Rx) 1 each 1X MC ; Start 01/23/20 at 16:45; Status Cancel Ondansetron HCl (Zofran) 4 mg PRN Q4HRS PRN IV NAUSEA/VOMITING; Start 01/24/20 at 08:15 Allopurinol (Zyloprim) 100 mg DAILY PO Last administered on 01/27/20 08:10; Start 01/24/20 at 09:00 Aspirin (Ecotrin) 81 mg DAILY PO Last administered on 01/27/20 08:10; Start 01/24/20 at 09:00 Citalopram Hydrobromide (CeleXA) 20 mg DAILY PO Last administered on 01/27/20 08:11; Start 01/24/20 at 09:00 Haloperidol (Haldol) 2 mg PRN Q6HRS PRN PO DELIRIUM; Start 01/24/20 at 08:15 Acetaminophen/ Hydrocodone Bitart (Lortab 5/325) 1 tab PRN Q6HRS PRN PO MODERATE PAIN Last administered on 01/26/20 23:38; Start 01/24/20 at 08:15 Lactobacillus Rhamnosus (Culturelle) 1 cap BID PO Last administered on 01/27/20 08:11; Start 01/24/20 at 09:00 Levothyroxine Sodium (Synthroid) 88 mcg DAILY06 PO Last administered on 01/27/20 06:24; Start 01/24/20 at 10:30 Metoprolol Tartrate (Lopressor) 12.5 mg BID PO Last administered on 01/27/20 08:10; Start 01/24/20 at 09:00 Pantoprazole Sodium (Protonix) 40 mg DAILYAC PO Last administered on 01/27/20 06:24; Start 01/24/20 at 09:00 Risperidone (RisperDAL) 1 mg QHS PO Last administered on 01/26/20 20:40; Start 01/24/20 at 21:00 Ticagrelor (Brilinta) 90 mg BID PO Last administered on 01/27/20 08:10; Start 01/24/20 at 09:00 Tramadol HCl (Ultram) 25 mg PRN BID PRN PO MILD PAIN 1-3 Last administered on 01/26/20 20:42; Start 01/24/20 at 08:15 Simvastatin (Zocor) 80 mg QHS PO Last administered on 01/26/20 20:40; Start 01/24/20 at 21:00 Furosemide (Lasix) 40 mg DAILY PO Last administered on 01/27/20at 08:11; Start 01/24/20 at 09:00 Cetirizine HCl (ZyrTEC) 10 mg DAILY PO Last administered on 01/27/20at 08:11; Start 01/24/20 at 09:00 Ibuprofen (Motrin) 600 mg PRN Q6HRS PRN PO INFLAMMATION; Start 01/24/20 at 08:15; Stop 01/24/20 at 10:30; Status DC Throat Lozenges (Cepacol Sore Throat Lozenge) 1 liz PRN Q2HRS PRN PO SORE THROAT; Start 01/24/20 at 08:15 Potassium Chloride (Klor-Con) 20 meq DAILYWBKFT PO Last administered on 01/27/20at 08:11; Start 01/24/20 at 11:00 Throat Lozenges (Cepacol Sore Throat Lozenge) 1 liz PRN Q2HRS PRN PO SORE THROAT; Start 01/24/20 at 11:30; Status UNV Ceftriaxone Sodium (Rocephin) 1 gm Q24H IVP Last administered on 01/26/20at 16:55; Start 01/24/20 at 17:00 Diclofenac Sodium (Voltaren) 1 janet BID TP Last administered on 01/26/20at 20:46; Start 01/25/20 at 21:00 Polysaccharide Iron Complex (Niferex 150) 150 mg DAILY PO Last administered on 01/27/20at 08:11; Start 01/25/20 at 12:00 Prednisone (Prednisone) 10 mg DAILY PO Last administered on 01/27/20at 08:10; St art 01/25/20 at 13:30 Sodium Chloride 500 ml @ 500 mls/hr 1X ONCE IV Last administered on 01/25/20at 15:00; Start 01/25/20 at 14:30; Stop 01/25/20 at 15:29; Status DC Methylprednisolone Acetate (DEPO-Medrol 40MG VIAL) 40 mg 1X ONCE IM ; Start 01/27/20 at 09:00; Stop 01/27/20 at 09:01 Bupivacaine HCl (Sensorcaine-Mpf 0.25%) 10 ml 1X ONCE IJ ; Start 01/27/20 at 09:00; Stop 01/27/20 at 09:01 Active Scripts Active Haloperidol 2 Mg Tablet 1 Tab PO Q6HRS PRN Metoprolol Tartrate 25 Mg Tablet 12.5 Mg PO BID [place] 5-325 Tablet (Acetaminophen/Hydrocodone Bitart) 1 Each Tablet 1 Each PO PRN Q6HRS PRN as needed for pain Ibuprofen 600 Mg Tablet 600 Mg PO PRN Q6HRS PRN take with food or milk Culturelle (Lactobacillus Rhamnosus Gg) 1 Each Cap.sprink 1 Cap PO BID 7 Days Reported Tramadol Hcl 50 Mg Tablet 25 Mg PO BID PRN Risperdal (Risperidone) 1 Mg Tablet 1 Tab PO QHS 30 Days Citalopram Hbr (Citalopram Hydrobromide) 20 Mg Tablet 1 Tab PO DAILY Brilinta (Ticagrelor) 90 Mg Tablet 90 Mg PO BID [place]ova-D 24 Hour Tablet (Fexofenadine/Pseudoephedrine) 1 Each Tab.er.24h 1 Tab PO DAILY Levothyroxine Sodium 88 Mcg Tablet 88 Mcg PO DAILY Allopurinol 100 Mg Tablet 100 Mg PO DAILY Pantoprazole Sodium (Pantoprazole Sodium) 40 Mg Tablet. 40 Mg PO DAILY Aspir-Low (Aspirin) 81 Mg Tablet. 1 Tab PO DAILY Simvastatin 80 Mg Tablet 1 Tab PO QHS Furosemide 40 Mg Tablet 1 Tab PO DAILY Vitals/I & O Vital Sign - Last 24 Hours 01/26/20 01/26/20 01/26/20 01/26/20 10:36 11:00 12:15 13:22 Temp 97.4 97.4 Pulse 74 61 Resp 18 B/P (MAP) 127/52 138/59 (85) Pulse Ox 99 O2 Delivery Room Air Room Air Room Air 01/26/20 01/26/20 01/26/20 01/26/20 15:00 19:00 20:00 20:41 Temp 97.5 97.4 97.5 97.4 Pulse 69 68 61 Resp 18 18 B/P (MAP) 130/56 (80) 143/54 (83) 124/52 Pulse Ox 99 97 O2 Delivery Room Air Room Air 01/26/20 01/26/20 01/26/20 01/26/20 20:42 21:42 23:00 23:38 Temp 97.7 97.7 Pulse 62 Resp 18 16 18 18 B/P (MAP) 114/50 (71) Pulse Ox 99 99 98 99 O2 Delivery Room Air Room Air Room Air 01/27/20 01/27/20 01/27/20 01/27/20 00:38 03:00 07:15 08:10 Temp 97.5 97.4 97.5 97.4 Pulse 66 64 64 Resp 16 18 16 B/P (MAP) 123/59 (80) 143/54 (83) 143/54 Pulse Ox 99 99 95 O2 Delivery Room Air Room Air Intake and Output 01/26/20 01/26/20 01/27/20 15:00 23:00 07:00 Intake Total 250 ml 270 ml 60 ml Output Total 250 ml Balance 250 ml 270 ml -190 ml Justifications for Admission Other Justification ULISES NINO MD Jan 27, 2020 08:58
[2020-01-27] MEDS: DICLOFENAC SODIUM 1% TOPICAL GEL 100GM TUBE. TP SCH ×2 (09:00→21:35)
[2020-01-27] MEDS ORDERED: BUPIVACAINE MPF 0.25% 10 ML VIAL. IJ ONE (09:00)
[2020-01-27] MEDS ORDERED: methylPREDNISolone ACETATE 40 MG/ML VIAL. IM ONE (09:00)
--- NOTE | 2020-01-27 09:17 | PDOC4 ---
PROCEDURE Procedure At her request,I have injected painful left knee joint under aseptic skin te chnique,using alcohol skin prep,with 2 ml of 0.25% marcaine solution mixed with 1 ml of depo-medrol 40 mg/ 1 ml solution and she tolerated the procedure satisfactorily without any side effects. ULISES NINO MD Jan 27, 2020 09:17
[2020-01-27 10:58] VITALS: BP 116/52
--- NOTE | 2020-01-27 11:20 | NUR ---
KEVON following. Spoke with RN and reviewed chart. COVID results remain pending as does insurance authorization for SNU at [facility]. Spoke with Matthew at [facility] and confirmed pt has used 23 SNU days (12/30 to 12/31 and then 01/01 to 01/20). Pt will likely have a co-pay of $178 per day unless this is waved per Medicare per COVID (Sylvie from [facility] is checking). Pt has been accepted clinically at [facility]. Addendum: 01/27/20 at 1228 by LATANYA LUND Spoke with Sylvie and Medicare is only covering co-pay days for those with COVID. Pt's COVID test results are pending. Spoke with pt who stated she does not want to pay $178 and will discharge home tomorrow, 01/27 with HH. Pt asking about a walker that is to be delivered from [facility]. [facility] for Matthew to see about HH and walker for this patient. Patient is also considering a move to [facility]. Pt will need RN, PT, OT, and [facility] HH orders on discharge.
[2020-01-27] MEDS: HYDROcodone/APAP 5/325MG 1 TAB TABLET PO PRN (13:53)
[2020-01-27 15:07] VITALS: BP 121/60
[2020-01-27 19:00] VITALS: BP 113/50
[2020-01-27] MEDS: SIMVASTATIN 40 MG TABLET. PO SCH (21:33)
[2020-01-27] MEDS: AMOXICILLIN/K CLAV 500/125MG TABLET. PO SCH (21:34)
[2020-01-27] MEDS: risperiDONE 1 MG TABLET. PO SCH (21:34)
[2020-01-27 23:00] VITALS: BP 127/51
[2020-01-28 03:00] VITALS: BP 136/62
[2020-01-28] MEDS: LEVOTHYROXINE 88 MCG TABLET PO SCH (06:38)
[2020-01-28] MEDS: PANTOPRAZOLE 40 MG TABLET.DR. PO SCH (06:39)
[2020-01-28 07:00] VITALS: BP 103/45
--- NOTE | 2020-01-28 07:26 | PDOC ---
PROGRESS NOTES Date of Service: DATE: 01/28/20 TIME: 07:25 Chief Complaint Chief Complaint discharge dx Frequent falls - PT to evaluate safety of her gait, going better H/o Bilateral wrist pain - unable to use her walker due to right wrist fracture, will have PT evaluate for platform walker Acute encephalopathy - possibly 2/2 UTI, meds. 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 Given 1L NSS and held lasix 2 doses. monitor renal fx. Seen by nephrology Hyperlipidemia CAD s/p BETSEY - she has been concerned about brillinta and has not filled it recently, needs antiplatelet, will order plavix Chronic diastolic Congestive heart failure S/p right nephrectomy H/o Cervical cancer s/p TAHBSO Aortic stenosis - with falls, could be partially syncope related, will order echocardiogram Anemia - likely of chronic renal disease, will check iron stores Moderate protein calorie malnutrition - will ask physical education aide to see Paranoid behavior - will ask psych to evaluate, may have some mild cognitive impairment increased sclerosis along the distal scaphoid which could reflect sequela of nondisplaced fracture. ACUTE GOUT arthritis PAST MEDICAL HISTORY: Cervical cancer, CHF, hyperlipidemia, hypertension, myocardial infarction, appendectomy, hysterectomy, aortic stenosis, lesion from her right leg that was removed, cardiac stents, right nephrectomy. plan FEN - Cardiac diet PPX - lovenox FULL CODE Dispo - Inpatient for frequent falls and inability to care for herself. She has made it clear she does not want permanent SNF placement and is amenable to HOME HEALTH ortho consult po prednisone D/W DR NINO RENAL FX STABLE / buckling of left knee while up walking that makes her fall, improving strength, wants to go home with HH D/W DR NINO . denies NEEDS SNF D/C PLANNING 28 MIN History of Present Illness History of Present Illness Ms Campos is an 87yo F w/ PMHx CAD s/p BETSEY, Congestive heart failure, Chronic kidney disease s/p right nephrectomy, cervical cancer s/p TAHBSO, and aortic st enosis who presents with increased weakness and frequent falls as well as confusion. She notes a mechanical fall resulting in a left wrist injury. Patient was here 3 weeks ago for a fall and a right wrist fracture and was discharged to SNF and was home with home health for almost 3 days before returning. Home health EMS MANAGER recommended SNF again. Patient has a splint on that wrist. Patient denies any dizziness, chest pain and states her legs went out on her which is not uncommon for her and she fell and landed on her left wrist. Patient describes moderate pain that radiates up to the left forearm that is worse with palpation and movement. Patient denies any focal numbness. Patient does have some limited range of motion in the wrist due to pain. Patient denies hitting her head or having loss of consciousness. CT head and neck negative. Cr 1.9 She is very resistant to discussion of [facility] SNF, but is more open to discussion of acute rehabilitation again. does c/o sore throat, no cough or SOB or recent COVID 19 contacts Admitted for further treatment. Vitals Vitals Vital Signs Date Time Temp Pulse Resp B/P (MAP) Pulse Ox O2 Delivery O2 Flow Rate FiO2 01/28/20 03:00 97.9 63 18 136/62 (86) 97 Room Air 97.9 Physical Exam General: Alert, Oriented X3, Cooperative, No acute distress Heart: Regular rate, Normal S1, Normal S2 Lungs: Clear Abdomen: Normal bowel sounds, Soft, No tenderness Extremities: No clubbing, No cyanosis Skin: No rashes, No breakdown Assessment and Plan Assessmemt and Plan Problems Medical Problems: (1) Acute on chronic renal insufficiency Status: Acute (2) Generalized weakness Status: Acute Comment Review of Relevant I have reviewed the following items javan (where applicable) has been applied. Labs Laboratory Tests Test 01/26/20 14:43 Coronavirus (PCR) Not detected (Not Detected) Microbiology 01/24/20 Urine Culture - Preliminary, Resulted 01/24/20 Antimicrobic Susceptibility - Preliminary, Resulted 01/23/20 Blood Culture - Preliminary, Resulted NO GROWTH AFTER 2 DAYS Medications Current Medications Sodium Chloride 1,000 ml @ 1,000 mls/hr 1X ONCE IV Last administered on 01/23/20at 13:13; Start 01/23/20 at 13:15; Stop 01/23/20 at 14:14; Status DC Acetaminophen/ Hydrocodone Bitart (Lortab 5/325) 1 tab 1X ONCE PO Last administered on 01/23/20at 13:17; Start 01/23/20 at 13:15; Stop 01/23/20 at 13:16; Status DC Ondansetron HCl (Zofran) 4 mg PRN Q8HRS PRN IV NAUSEA/VOMITING; Start 01/23/20 at 13:15; Stop 01/24/20 at 08:05; Status DC Pharmacy Consult (C.diff Med Screen By Rx) 1 each 1X MC ; Start 01/23/20 at 16:45; Status Cancel Ondansetron HCl (Zofran) 4 mg PRN Q4HRS PRN IV NAUSEA/VOMITING; Start 01/24/20 at 08:15 Allopurinol (Zyloprim) 100 mg DAILY PO Last administered on 01/27/20 08:10; Start 01/24/20 at 09:00 Aspirin (Ecotrin) 81 mg DAILY PO Last administered on 01/27/20at 08:10; Start 01/24/20 at 09:00 Citalopram Hydrobromide (CeleXA) 20 mg DAILY PO Last administered on 01/27/20 08:11; Start 01/24/20 at 09:00 Haloperidol (Haldol) 2 mg PRN Q6HRS PRN PO DELIRIUM; Start 01/24/20 at 08:15 Acetaminophen/ Hydrocodone Bitart (Lortab 5/325) 1 tab PRN Q6HRS PRN PO MODERATE PAIN Last administered on 01/27/20at 13:53; Start 01/24/20 at 08:15 Lactobacillus Rhamnosus (Culturelle) 1 cap BID PO Last administered on 01/27/20 21:33; Start 01/24/20 at 09:00 Levothyroxine Sodium (Synthroid) 88 mcg DAILY06 PO Last administered on 01/28/20 06:38; Start 01/24/20 at 10:30 Metoprolol Tartrate (Lopressor) 12.5 mg BID PO Last administered on 01/27/20 21:35; Start 01/24/20 at 09:00 Pantoprazole Sodium (Protonix) 40 mg DAILYAC PO Last administered on 01/28/20 06:39; Start 01/24/20 at 09:00 Risperidone (RisperDAL) 1 mg QHS PO Last administered on 01/27/20 21:34; Start 01/24/20 at 21:00 Ticagrelor (Brilinta) 90 mg BID PO Last administered on 01/27/20 21:34; Start 01/24/20 at 09:00 Tramadol HCl (Ultram) 25 mg PRN BID PRN PO MILD PAIN 1-3 Last administered on 01/26/20 20:42; Start 01/24/20 at 08:15 Simvastatin (Zocor) 80 mg QHS PO Last administered on 01/27/20 21:33; Start 01/24/20 at 21:00 Furosemide (Lasix) 40 mg DAILY PO Last administered on 01/27/20 08:11; Start 01/24/20 at 09:00 Cetirizine HCl (ZyrTEC) 10 mg DAILY PO Last administered on 01/27/20 08:11; Start 01/24/20 at 09:00 Ibuprofen (Motrin) 600 mg PRN Q6HRS PRN PO INFLAMMATION; Start 01/24/20 at 08:15; Stop 01/24/20 at 10:30; Status DC Throat Lozenges (Cepacol Sore Throat Lozenge) 1 liz PRN Q2HRS PRN PO SORE THROAT; Start 01/24/20 at 08:15 Potassium Chloride (Klor-Con) 20 meq DAILYWBKFT PO Last administered on 01/27/20 08:11; Start 01/24/20 at 11:00 Throat Lozenges (Cepacol Sore Throat Lozenge) 1 liz PRN Q2HRS PRN PO SORE THROAT; Start 01/24/20 at 11:30; Status UNV Ceftriaxone Sodium (Rocephin) 1 gm Q24H IVP Last administered on 01/26/20 16:55; Start 01/24/20 at 17:00; Stop 01/27/20 at 15:43; Status DC Diclofenac Sodium (Voltaren) 1 janet BID TP Last administered on 01/27/20 21:35; Start 01/25/20 at 21:00 Polysaccharide Iron Complex (Niferex 150) 150 mg DAILY PO Last administered on 01/27/20 08:11; Start 01/25/20 at 12:00 Prednisone (Prednisone) 10 mg DAILY PO Last administered on 01/27/20at 08:10; Start 01/25/20 at 13:30 Sodium Chloride 500 ml @ 500 mls/hr 1X ONCE IV Last administered on 01/25/20at 15:00; Start 01/25/20 at 14:30; Stop 01/25/20 at 15:29; Status DC Methylprednisolone Acetate (DEPO-Medrol 40MG VIAL) 40 mg 1X ONCE IM Last administered on 01/27/20at 09:07; Start 01/27/20 at 09:00; Stop 01/27/20 at 09:01; Status DC Bupivacaine HCl (Sensorcaine-Mpf 0.25%) 10 ml 1X ONCE IJ Last administered on 01/27/20at 09:07; Start 01/27/20 at 09:00; Stop 01/27/20 at 09:01; Status DC Amoxicillin/ Clavulanate Potassium (Augmentin 500/ 125mg) 1 tab BID PO Last administered on 01/27/20at 21:34; Start 01/27/20 at 21:00 Active Scripts Active Haloperidol 2 Mg Tablet 1 Tab PO Q6HRS PRN Metoprolol Tartrate 25 Mg Tablet 12.5 Mg PO BID [place] 5-325 Tablet (Acetaminophen/Hydrocodone Bitart) 1 Each Tablet 1 Each PO PRN Q6HRS PRN as needed for pain Ibuprofen 600 Mg Tablet 600 Mg PO PRN Q6HRS PRN take with food or milk Culturelle (Lactobacillus Rhamnosus Gg) 1 Each Cap.sprink 1 Cap PO BID 7 Days Reported Tramadol Hcl 50 Mg Tablet 25 Mg PO BID PRN Risperdal (Risperidone) 1 Mg Tablet 1 Tab PO QHS 30 Days Citalopram Hbr (Citalopram Hydrobromide) 20 Mg Tablet 1 Tab PO DAILY Brilinta (Ticagrelor) 90 Mg Tablet 90 Mg PO BID Tova-D 24 Hour Tablet (Fexofenadine/Pseudoephedrine) 1 Each Tab.er.24h 1 Tab PO DAILY Levothyroxine Sodium 88 Mcg Tablet 88 Mcg PO DAILY Allopurinol 100 Mg Tablet 100 Mg PO DAILY Pantoprazole Sodium (Pantoprazole Sodium) 40 Mg Tablet.dr 40 Mg PO DAILY Aspir-Low (Aspirin) 81 Mg Tablet.dr 1 Tab PO DAILY Simvastatin 80 Mg Tablet 1 Tab PO QHS Furosemide 40 Mg Tablet 1 Tab PO DAILY Vitals/I & O Vital Sign - Last 24 Hours 01/27/20 01/27/20 01/27/20 01/27/20 08:10 08:15 10:58 13:53 Temp 97.6 97.6 Pulse 64 62 Resp 18 B/P (MAP) 143/54 116/52 (73) Pulse Ox 96 O2 Delivery Room Air Room Air Room Air 01/27/20 01/27/20 01/27/20 01/27/20 14:59 15:07 19:00 20:00 Temp 97.5 97.5 97.5 97.5 Pulse 59 61 Resp 20 18 B/P (MAP) 121/60 (80) 113/50 (71) Pulse Ox 96 97 96 O2 Delivery Room Air Room Air Room Air Room Air 01/27/20 01/27/20 01/28/20 21:35 23:00 03:00 Temp 97.4 97.9 97.4 97.9 Pulse 58 54 63 Resp 18 18 B/P (MAP) 135/42 127/51 (76) 136/62 (86) Pulse Ox 98 97 O2 Delivery Room Air Room Air Intake and Output 01/27/20 01/27/20 01/28/20 15:00 23:00 07:00 Intake Total 360 ml 240 ml 180 ml Balance 360 ml 240 ml 180 ml Justicifation of Admission Dx: Justifications for Admission: Justification of Admission Dx: Yes KACIE ECHEVERRIA MD Jan 28, 2020 07:26
[2020-01-28 08:39] LABS: BASO % 0 % (0-3); EOS # 0.3 x10^3/uL (0.0-0.7); EOS % 5 % (0-3); HEMATOCRIT 29.6 % (36.0-47.0); HEMOGLOBIN 9.8 g/dL (12.0-15.5); LYMPH # 1.6 x10^3/uL (1.0-4.8); LYMPH % 24 % (24-48); MEAN CORPUSCULAR HEMOGLOBIN 29 pg (25-35); MEAN CORPUSCULAR HGB CONC 33 g/dL (31-37); MEAN CORPUSCULAR VOLUME 89 fL (79-100); MONO # 0.6 x10^3/uL (0.0-1.1); MONO % 9 % (0-9); NEUT # 4.1 x10^3/uL (1.8-7.7); NEUT % 61 % (31-73); PLATELET COUNT 218 x10^3/uL (140-400); RED BLOOD COUNT 3.32 x10^6/uL (3.50-5.40); WHITE BLOOD COUNT 6.7 x10^3/uL (4.0-11.0)
[2020-01-28 09:00] LABS: ALBUMIN 2.6 g/dL (3.4-5.0); ALBUMIN/GLOBULIN RATIO 0.7 (1.0-1.7); CALCIUM 8.6 mg/dL (8.5-10.1); CREATININE 1.4 mg/dL (0.6-1.0); GFR 35.5; POTASSIUM 3.5 mmol/L (3.5-5.1); TOTAL BILIRUBIN 0.3 mg/dL (0.2-1.0); TOTAL PROTEIN 6.1 g/dL (6.4-8.2)
[2020-01-28] MEDS: FUROSEMIDE 40 MG TABLET. PO SCH (09:14)
[2020-01-28] MEDS: IRON POLYSACCHARIDE COMPLEX 150 MG CAPSULE PO SCH (09:14)
[2020-01-28] MEDS: TICAGRELOR 90 MG TABLET. PO SCH (09:15)
[2020-01-28] MEDS: AMOXICILLIN/K CLAV 500/125MG TABLET. PO SCH (09:15)
[2020-01-28] MEDS: ALLOPURINOL 100 MG TABLET. PO SCH (09:15)
[2020-01-28] MEDS: POTASSIUM CHLORIDE 20 MEQ TABLET.ER. PO SCH (09:15)
[2020-01-28] MEDS: LACTOBACILLUS RHAMNOSUS GG 1 CAPSULE. PO SCH (09:15)
[2020-01-28] MEDS: CITALOPRAM 20 MG TABLET. PO SCH (09:16)
[2020-01-28] MEDS: ASPIRIN ENTERIC COATED 81 MG TABLET.DR. PO SCH (09:16)
[2020-01-28] MEDS: predniSONE 10 MG TABLET PO SCH (09:16)
[2020-01-28] MEDS: CETIRIZINE HCL 10 MG TABLET. PO SCH (09:16)
[2020-01-28] MEDS: METOPROLOL TART IMMED RELEASE 25 MG TABLET. PO SCH (09:18)
[2020-01-28] MEDS: DICLOFENAC SODIUM 1% TOPICAL GEL 100GM TUBE. TP SCH (09:23)
--- NOTE | 2020-01-28 09:40 | PDOC ---
PROGRESS NOTES Date of Service DATE: 01/28/20 TIME: 09:36 Subjective Subjective She feels better with her left knee joint pain. She would like to go home and try with home health and states that she had 2 neighbours that can help her. She knows that her lower extremity swelling is from lymphedema. Objective Objective Vital Signs Date Time Temp Pulse Resp B/P (MAP) Pulse Ox O2 Delivery O2 Flow Rate FiO2 01/28/20 09:18 54 103/45 01/28/20 07:00 98.0 18 98 98.0 01/28/20 03:00 Room Air Intake and Output 01/28/20 07:00 Intake Total 780 ml Balance 780 ml Intake Oral 780 ml # Voids 4 Physical Exam Physical Exam She is alert,sitting at edge of bed and she is walking with roller walker in the room under supervision. She had overgrown toe nails and she admits difficulty to reach to trim herself. Assessment Assessment Problems Medical Problems: (1) Acute on chronic renal insufficiency Status: Acute (2) Generalized weakness Status: Acute Plan Plan of Care To ask for podiatry to trim her toe nails and to home with home health nursing,aide,physical and occupational therapy and social work follow up or to SNF if she agrees,when medically stable. Comment Review of Relevant I have reviewed the following items javan (where applicable) has been applied. Labs Laboratory Tests Test 01/26/20 14:43 01/28/20 07:40 Coronavirus (PCR) Not detected (Not Detected) White Blood Count 6.7 x10^3/uL (4.0-11.0) Red Blood Count 3.32 x10^6/uL (3.50-5.40) Hemoglobin 9.8 g/dL (12.0-15.5) Hematocrit 29.6 % (36.0-47.0) Mean Corpuscular Volume 89 fL (79-100) Mean Corpuscular Hemoglobin 29 pg (25-35) Mean Corpuscular Hemoglobin Concent 33 g/dL (31-37) Red Cell Distribution Width 18.0 % (11.5-14.5) Platelet Count 218 x10^3/uL (140-400) Neutrophils (%) (Auto) 61 % (31-73) Lymphocytes (%) (Auto) 24 % (24-48) Monocytes (%) (Auto) 9 % (0-9) Eosinophils (%) (Auto) 5 % (0-3) Basophils (%) (Auto) 0 % (0-3) Neutrophils # (Auto) 4.1 x10^3/uL (1.8-7.7) Lymphocytes # (Auto) 1.6 x10^3/uL (1.0-4.8) Monocytes # (Auto) 0.6 x10^3/uL (0.0-1.1) Eosinophils # (Auto) 0.3 x10^3/uL (0.0-0.7) Basophils # (Auto) 0.0 x10^3/uL (0.0-0.2) Sodium Level 144 mmol/L (136-145) Potassium Level 3.5 mmol/L (3.5-5.1) Chloride Level 108 mmol/L (98-107) Carbon Dioxide Level 29 mmol/L (21-32) Anion Gap 7 (6-14) Blood Urea Nitrogen 34 mg/dL (7-20) Creatinine 1.4 mg/dL (0.6-1.0) Estimated GFR (Cockcroft-Gault) 35.5 BUN/Creatinine Ratio 24 (6-20) Glucose Level 87 mg/dL (70-99) Calcium Level 8.6 mg/dL (8.5-10.1) Total Bilirubin 0.3 mg/dL (0.2-1.0) Aspartate Amino Transf (AST/SGOT) 14 U/L (15-37) Alanine Aminotransferase (ALT/SGPT) 14 U/L (14-59) Alkaline Phosphatase 97 U/L (46-116) Total Protein 6.1 g/dL (6.4-8.2) Albumin 2.6 g/dL (3.4-5.0) Albumin/Globulin Ratio 0.7 (1.0-1.7) Laboratory Tests Test 01/28/20 07:40 White Blood Count 6.7 x10^3/uL (4.0-11.0) Red Blood Count 3.32 x10^6/uL (3.50-5.40) Hemoglobin 9.8 g/dL (12.0-15.5) Hematocrit 29.6 % (36.0-47.0) Mean Corpuscular Volume 89 fL (79-100) Mean Corpuscular Hemoglobin 29 pg (25-35) Mean Corpuscular Hemoglobin Concent 33 g/dL (31-37) Red Cell Distribution Width 18.0 % (11.5-14.5) Platelet Count 218 x10^3/uL (140-400) Neutrophils (%) (Auto) 61 % (31-73) Lymphocytes (%) (Auto) 24 % (24-48) Monocytes (%) (Auto) 9 % (0-9) Eosinophils (%) (Auto) 5 % (0-3) Basophils (%) (Auto) 0 % (0-3) Neutrophils # (Auto) 4.1 x10^3/uL (1.8-7.7) Lymphocytes # (Auto) 1.6 x10^3/uL (1.0-4.8) Monocytes # (Auto) 0.6 x10^3/uL (0.0-1.1) Eosinophils # (Auto) 0.3 x10^3/uL (0.0-0.7) Basophils # (Auto) 0.0 x10^3/uL (0.0-0.2) Sodium Level 144 mmol/L (136-145) Potassium Level 3.5 mmol/L (3.5-5.1) Chloride Level 108 mmol/L (98-107) Carbon Dioxide Level 29 mmol/L (21-32) Anion Gap 7 (6-14) Blood Urea Nitrogen 34 mg/dL (7-20) Creatinine 1.4 mg/dL (0.6-1.0) Estimated GFR (Cockcroft-Gault) 35.5 BUN/Creatinine Ratio 24 (6-20) Glucose Level 87 mg/dL (70-99) Calcium Level 8.6 mg/dL (8.5-10.1) Total Bilirubin 0.3 mg/dL (0.2-1.0) Aspartate Amino Transf (AST/SGOT) 14 U/L (15-37) Alanine Aminotransferase (ALT/SGPT) 14 U/L (14-59) Alkaline Phosphatase 97 U/L (46-116) Total Protein 6.1 g/dL (6.4-8.2) Albumin 2.6 g/dL (3.4-5.0) Albumin/Globulin Ratio 0.7 (1.0-1.7) Microbiology 01/24/20 Urine Culture - Preliminary, Resulted 01/24/20 Antimicrobic Susceptibility - Preliminary, Resulted 01/23/20 Blood Culture - Preliminary, Resulted NO GROWTH AFTER 2 DAYS Medications Current Medications Sodium Chloride 1,000 ml @ 1,000 mls/hr 1X ONCE IV Last administered on 01/23/20at 13:13; Start 01/23/20 at 13:15; Stop 01/23/20 at 14:14; Status DC Acetaminophen/ Hydrocodone Bitart (Lortab 5/325) 1 tab 1X ONCE PO Last administered on 01/23/20at 13:17; Start 01/23/20 at 13:15; Stop 01/23/20 at 13:16; Status DC Ondansetron HCl (Zofran) 4 mg PRN Q8HRS PRN IV NAUSEA/VOMITING; Start 01/23/20 at 13:15; Stop 01/24/20 at 08:05; Status DC Pharmacy Consult (C.diff Med Screen By Rx) 1 each 1X MC ; Start 01/23/20 at 16:45; Status Cancel Ondansetron HCl (Zofran) 4 mg PRN Q4HRS PRN IV NAUSEA/VOMITING; Start 01/24/20 at 08:15 Allopurinol (Zyloprim) 100 mg DAILY PO Last administered on 01/28/20at 09:15; Start 01/24/20 at 09:00 Aspirin (Ecotrin) 81 mg DAILY PO Last administered on 01/28/20at 09:16; Start 01/24/20 at 09:00 Citalopram Hydrobromide (CeleXA) 20 mg DAILY PO Last administered on 01/28/20at 09:16; Start 01/24/20 at 09:00 Haloperidol (Haldol) 2 mg PRN Q6HRS PRN PO DELIRIUM; Start 01/24/20 at 08:15 Acetaminophen/ Hydrocodone Bitart (Lortab 5/325) 1 tab PRN Q6HRS PRN PO MODERATE PAIN Last administered on 01/27/20at 13:53; Start 01/24/20 at 08:15 Lactobacillus Rhamnosus (Culturelle) 1 cap BID PO Last administered on 01/28/20at 09:15; Start 01/24/20 at 09:00 Levothyroxine Sodium (Synthroid) 88 mcg DAILY06 PO Last administered on 01/28/20 06:38; Start 01/24/20 at 10:30 Metoprolol Tartrate (Lopressor) 12.5 mg BID PO Last administered on 01/28/20 09:18; Start 01/24/20 at 09:00 Pantoprazole Sodium (Protonix) 40 mg DAILYAC PO Last administered on 01/28/20 06:39; Start 01/24/20 at 09:00 Risperidone (RisperDAL) 1 mg QHS PO Last administered on 01/27/20 21:34; Start 01/24/20 at 21:00 Ticagrelor (Brilinta) 90 mg BID PO Last administered on 01/28/20 09:15; Start 01/24/20 at 09:00 Tramadol HCl (Ultram) 25 mg PRN BID PRN PO MILD PAIN 1-3 Last administered on 01/26/20 20:42; Start 01/24/20 at 08:15 Simvastatin (Zocor) 80 mg QHS PO Last administered on 01/27/20 21:33; Start 01/24/20 at 21:00 Furosemide (Lasix) 40 mg DAILY PO Last administered on 01/28/20 09:14; Start 01/24/20 at 09:00 Cetirizine HCl (ZyrTEC) 10 mg DAILY PO Last administered on 01/28/20 09:16; Start 01/24/20 at 09:00 Ibuprofen (Motrin) 600 mg PRN Q6HRS PRN PO INFLAMMATION; Start 01/24/20 at 08:15; Stop 01/24/20 at 10:30; Status DC Throat Lozenges (Cepacol Sore Throat Lozenge) 1 liz PRN Q2HRS PRN PO SORE THROAT; Start 01/24/20 at 08:15 Potassium Chloride (Klor-Con) 20 meq DAILYWBKFT PO Last administered on 01/28/20 09:15; Start 01/24/20 at 11:00 Throat Lozenges (Cepacol Sore Throat Lozenge) 1 liz PRN Q2HRS PRN PO SORE THROAT; Start 01/24/20 at 11:30; Status UNV Ceftriaxone Sodium (Rocephin) 1 gm Q24H IVP Last administered on 9/8/20at 16:55; Start 01/24/20 at 17:00; Stop 01/27/20 at 15:43; Status DC Diclofenac Sodium (Voltaren) 1 janet BID TP Last administered on 01/28/20at 09:23; Start 01/25/20 at 21:00 Polysaccharide Iron Complex (Niferex 150) 150 mg DAILY PO Last administered on 01/28/20at 09:14; Start 01/25/20 at 12:00 Prednisone (Prednisone) 10 mg DAILY PO Last administered on 01/28/20at 09:16; Start 01/25/20 at 13:30 Sodium Chloride 500 ml @ 500 mls/hr 1X ONCE IV Last administered on 01/25/20at 15:00; Start 01/25/20 at 14:30; Stop 01/25/20 at 15:29; Status DC Methylprednisolone Acetate (DEPO-Medrol 40MG VIAL) 40 mg 1X ONCE IM Last administered on 01/27/20at 09:07; Start 01/27/20 at 09:00; Stop 01/27/20 at 09:01; Status DC Bupivacaine HCl (Sensorcaine-Mpf 0.25%) 10 ml 1X ONCE IJ Last administered on 01/27/20at 09:07; Start 01/27/20 at 09:00; Stop 01/27/20 at 09:01; Status DC Amoxicillin/ Clavulanate Potassium (Augmentin 500/ 125mg) 1 tab BID PO Last administered on 01/28/20at 09:15; Start 01/27/20 at 21:00 Active Scripts Active Haloperidol 2 Mg Tablet 1 Tab PO Q6HRS PRN Metoprolol Tartrate 25 Mg Tablet 12.5 Mg PO BID [place] 5-325 Tablet (Acetaminophen/Hydrocodone Bitart) 1 Each Tablet 1 Each PO PRN Q6HRS PRN as needed for pain Ibuprofen 600 Mg Tablet 600 Mg PO PRN Q6HRS PRN take with food or milk Culturelle (Lactobacillus Rhamnosus Gg) 1 Each Cap.sprink 1 Cap PO BID 7 Days Reported Tramadol Hcl 50 Mg Tablet 25 Mg PO BID PRN Risperdal (Risperidone) 1 Mg Tablet 1 Tab PO QHS 30 Days Citalopram Hbr (Citalopram Hydrobromide) 20 Mg Tablet 1 Tab PO DAILY Brilinta (Ticagrelor) 90 Mg Tablet 90 Mg PO BID [place]ova-D 24 Hour Tablet (Fexofenadine/Pseudoephedrine) 1 Each Tab.er.24h 1 Tab PO DAILY Levothyroxine Sodium 88 Mcg Tablet 88 Mcg PO DAILY Allopurinol 100 Mg Tablet 100 Mg PO DAILY Pantoprazole Sodium (Pantoprazole Sodium) 40 Mg Tablet. 40 Mg PO DAILY Aspir-Low (Aspirin) 81 Mg Tablet.dr 1 Tab PO DAILY Simvastatin 80 Mg Tablet 1 Tab PO QHS Furosemide 40 Mg Tablet 1 Tab PO DAILY Vitals/I & O Vital Sign - Last 24 Hours 01/27/20 01/27/20 01/27/20 01/27/20 10:58 13:53 14:59 15:07 Temp 97.6 97.5 97.6 97.5 Pulse 62 59 Resp 18 20 B/P (MAP) 116/52 (73) 121/60 (80) Pulse Ox 96 96 97 O2 Delivery Room Air Room Air Room Air Room Air 01/27/20 01/27/20 01/27/20 01/27/20 19:00 20:00 21:35 23:00 Temp 97.5 97.4 97.5 97.4 Pulse 61 58 54 Resp 18 18 B/P (MAP) 113/50 (71) 135/42 127/51 (76) Pulse Ox 96 98 O2 Delivery Room Air Room Air Room Air 01/28/20 01/28/20 01/28/20 03:00 07:00 09:18 Temp 97.9 98.0 97.9 98.0 Pulse 63 54 54 Resp 18 18 B/P (MAP) 136/62 (86) 103/45 (64) 103/45 Pulse Ox 97 98 O2 Delivery Room Air Intake and Output 01/27/20 01/27/20 01/28/20 15:00 23:00 07:00 Intake Total 360 ml 240 ml 180 ml Balance 360 ml 240 ml 180 ml Justifications for Admission Other Justification ULISES NINO MD Jan 28, 2020 09:40
--- NOTE | 2020-01-28 10:38 | PDOC3 ---
Discharge Summary Date of Admission: Jan 23, 2020 Date of Discharge: Jan 28, 2020 Follow-Up: 1-2 days Admitting Diagnosis comment: discharge dx Frequent falls - PT to evaluate safety of her gait, going better H/o Bilateral wrist pain - unable to use her walker due to right wrist fracture, will have PT evaluate for platform walker Acute encephalopathy - possibly 2/2 UTI, meds. 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 Given 1L NSS and held lasix 2 doses. monitor renal fx. Seen by nephrology Hyperlipidemia CAD s/p BETSEY - she has been concerned about brillinta and has not filled it recently, needs antiplatelet, will order plavix Chronic diastolic Congestive heart failure S/p right nephrectomy H/o Cervical cancer s/p TAHBSO Aortic stenosis - with falls, could be partially syncope related, will order echocardiogram Anemia - likely of chronic renal disease, will check iron stores Moderate protein calorie malnutrition - will ask range manager to see Paranoid behavior - will ask psych to evaluate, may have some mild cognitive impairment increased sclerosis along the distal scaphoid which could reflect sequela of nondisplaced fracture. ACUTE GOUT arthritis PAST MEDICAL HISTORY: Cervical cancer, CHF, hyperlipidemia, hypertension, myocardial infarction, appendectomy, hysterectomy, aortic stenosis, lesion from her right leg that was removed, cardiac stents, right nephrectomy. plan FEN - Cardiac diet PPX - lovenox FULL CODE Dispo - Inpatient for frequent falls and inability to care for herself. She has made it clear she does not want permanent SNF placement and is amenable to HOME HEALTH ortho consult po prednisone D/W DR NINO RENAL FX STABLE 9/10 buckling of left knee while up walking that makes her fall, improving strength, wants to go home with HH D/W DR NINO . denies NEEDS SNF D/C PLANNING 28 MIN History of Present Illness History of Present Illness Ms Campos is an 87yo F w/ PMHx CAD s/p BETSEY, Congestive heart failure, Chronic kidney disease s/p right nephrectomy, cervical cancer s/p TAHBSO, and aortic stenosis who presents with increased weakness and frequent falls as well as confusion. She notes a mechanical fall resulting in a left wrist injury. Patient was here 3 weeks ago for a fall and a right wrist fracture and was discharged to SNF and was home with home health for almost 3 days before returning. 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 Patient has a splint on that wrist. Patient denies any dizziness, chest pain and states her legs went out on her which is not uncommon for her and she fell and landed on her left wrist. Patient describes moderate pain that radiates up to the left forearm that is worse with palpation and movement. Patient denies any focal numbness. Patient does have some limited range of motion in the wrist due to pain. Patient denies hitting her head or having loss of consciousness. C T head and neck negative. 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 does c/o sore throat, no cough or SOB or recent COVID 19 contacts Admitted for further treatment. Vitals Vitals Vital Signs Date Time Temp Pulse Resp B/P (MAP) Pulse Ox O2 Delivery O2 Flow Rate FiO2 01/28/20 03:00 97.9 63 18 136/62 (86) 97 Room Air 97.9 Physical Exam General: Alert, Oriented X3, Cooperative, No acute distress Heart: Regular rate, Normal S1, Normal S2 Lungs: Clear Abdomen: Normal bowel sounds, Soft, No tenderness Extremities: No clubbing, No cyanosis Skin: No rashes, No breakdown FINAL DIAGNOSIS Problems Medical Problems: (1) Acute on chronic renal insufficiency Status: Acute (2) Generalized weakness Status: Acute Brief Hospital Course Ms. Campos is a 89 old [sex] who presented with [ weakness and falls ] CONDITION AT DISCHARGE: Improved Discharge Medications Current Medications Sodium Chloride 1,000 ml @ 1,000 mls/hr 1X ONCE IV Last administered on 01/23/20at 13:13; Start 01/23/20 at 13:15; Stop 01/23/20 at 14:14; Status DC Acetaminophen/ Hydrocodone Bitart (Lortab 5/325) 1 tab 1X ONCE PO Last administered on 01/23/20at 13:17; Start 01/23/20 at 13:15; Stop 01/23/20 at 13:16; Status DC Ondansetron HCl (Zofran) 4 mg PRN Q8HRS PRN IV NAUSEA/VOMITING; Start 01/23/20 at 13:15; Stop 01/24/20 at 08:05; Status DC Pharmacy Consult (C.diff Med Screen By Rx) 1 each 1X [facility] ; Start 01/23/20 at 16:45; Status Cancel Ondansetron HCl (Zofran) 4 mg PRN Q4HRS PRN IV NAUSEA/VOMITING; Start 01/24/20 at 08:15 Allopurinol (Zyloprim) 100 mg DAILY PO Last administered on 01/28/20 09:15; Start 01/24/20 at 09:00 Aspirin (Ecotrin) 81 mg DAILY PO Last administered on 01/28/20at 09:16; Start 01/24/20 at 09:00 Citalopram Hydrobromide (CeleXA) 20 mg DAILY PO Last administered on 01/28/20at 09:16; Start 01/24/20 at 09:00 Haloperidol (Haldol) 2 mg PRN Q6HRS PRN PO DELIRIUM; Start 01/24/20 at 08:15 Acetaminophen/ Hydrocodone Bitart (Lortab 5/325) 1 tab PRN Q6HRS PRN PO MODERATE PAIN Last administered on 01/27/20at 13:53; Start 01/24/20 at 08:15 Lactobacillus Rhamnosus (Culturelle) 1 cap BID PO Last administered on 01/28/20at 09:15; Start 01/24/20 at 09:00 Levothyroxine Sodium (Synthroid) 88 mcg DAILY06 PO Last administered on 01/28/20at 06:38; Start 01/24/20 at 10:30 Metoprolol Tartrate (Lopressor) 12.5 mg BID PO Last administered on 01/28/20 09:18; Start 01/24/20 at 09:00 Pantoprazole Sodium (Protonix) 40 mg DAILYAC PO Last administered on 01/28/20at 06:39; Start 01/24/20 at 09:00 Risperidone (RisperDAL) 1 mg QHS PO Last administered on 01/27/20at 21:34; Start 01/24/20 at 21:00 Ticagrelor (Brilinta) 90 mg BID PO Last administered on 01/28/20 09:15; Start 01/24/20 at 09:00 Tramadol HCl (Ultram) 25 mg PRN BID PRN PO MILD PAIN 1-3 Last administered on 01/26/20 20:42; Start 01/24/20 at 08:15 Simvastatin (Zocor) 80 mg QHS PO Last administered on 01/27/20 21:33; Start 01/24/20 at 21:00 Furosemide (Lasix) 40 mg DAILY PO Last administered on 01/28/20 09:14; Start 01/24/20 at 09:00 Cetirizine HCl (ZyrTEC) 10 mg DAILY PO Last administered on 01/28/20 09:16; Start 01/24/20 at 09:00 Ibuprofen (Motrin) 600 mg PRN Q6HRS PRN PO INFLAMMATION; Start 01/24/20 at 08:15; Stop 01/24/20 at 10:30; Status DC Throat Lozenges (Cepacol Sore Throat Lozenge) 1 liz PRN Q2HRS PRN PO SORE THROAT; Start 01/24/20 at 08:15 Potassium Chloride (Klor-Con) 20 meq DAILYWBKFT PO Last administered on 01/28/20 09:15; Start 01/24/20 at 11:00 Throat Lozenges (Cepacol Sore Throat Lozenge) 1 liz PRN Q2HRS PRN PO SORE THROAT; Start 01/24/20 at 11:30; Status UNV Ceftriaxone Sodium (Rocephin) 1 gm Q24H IVP Last administered on 01/26/20at 16:55; Start 01/24/20 at 17:00; Stop 01/27/20 at 15:43; Status DC Diclofenac Sodium (Voltaren) 1 janet BID TP Last administered on 01/28/20 09:23; Start 01/25/20 at 21:00 Polysaccharide Iron Complex (Niferex 150) 150 mg DAILY PO Last administered on 01/28/20 09:14; Start 01/25/20 at 12:00 Prednisone (Prednisone) 10 mg DAILY PO Last administered on 01/28/20 09:16; Start 01/25/20 at 13:30 Sodium Chloride 500 ml @ 500 mls/hr 1X ONCE IV Last administered on 01/25/20at 15:00; Start 01/25/20 at 14:30; Stop 01/25/20 at 15:29; Status DC Methylprednisolone Acetate (DEPO-Medrol 40MG VIAL) 40 mg 1X ONCE IM Last admi nistered on 01/27/20at 09:07; Start 01/27/20 at 09:00; Stop 01/27/20 at 09:01; Status DC Bupivacaine HCl (Sensorcaine-Mpf 0.25%) 10 ml 1X ONCE IJ Last administered on 01/27/20at 09:07; Start 01/27/20 at 09:00; Stop 01/27/20 at 09:01; Status DC Amoxicillin/ Clavulanate Potassium (Augmentin 500/ 125mg) 1 tab BID PO Last administered on 01/28/20at 09:15; Start 01/27/20 at 21:00 Active Scripts Active Haloperidol 2 Mg Tablet 1 Tab PO Q6HRS PRN Metoprolol Tartrate 25 Mg Tablet 12.5 Mg PO BID [place] 5-325 Tablet (Acetaminophen/Hydrocodone Bitart) 1 Each Tablet 1 Each PO PRN Q6HRS PRN as needed for pain Ibuprofen 600 Mg Tablet 600 Mg PO PRN Q6HRS PRN take with food or milk Culturelle (Lactobacillus Rhamnosus Gg) 1 Each Cap.sprink 1 Cap PO BID 7 Days Reported Tramadol Hcl 50 Mg Tablet 25 Mg PO BID PRN Risperdal (Risperidone) 1 Mg Tablet 1 Tab PO QHS 30 Days Citalopram Hbr (Citalopram Hydrobromide) 20 Mg Tablet 1 Tab PO DAILY Brilinta (Ticagrelor) 90 Mg Tablet 90 Mg PO BID Tova-D 24 Hour Tablet (Fexofenadine/Pseudoephedrine) 1 Each Tab.er.24h 1 Tab PO DAILY Levothyroxine Sodium 88 Mcg Tablet 88 Mcg PO DAILY Allopurinol 100 Mg Tablet 100 Mg PO DAILY Pantoprazole Sodium (Pantoprazole Sodium) 40 Mg Tablet.dr 40 Mg PO DAILY Aspir-Low (Aspirin) 81 Mg Tablet.dr 1 Tab PO DAILY Simvastatin 80 Mg Tablet 1 Tab PO QHS Furosemide 40 Mg Tablet 1 Tab PO DAILY Vital Signs Vital Signs Date Time Temp Pulse Resp B/P (MAP) Pulse Ox O2 Delivery O2 Flow Rate FiO2 01/28/20 09:18 54 103/45 01/28/20 08:30 Room Air 01/28/20 07:00 98.0 18 98 98.0 Labs Laboratory Tests Test 01/26/20 14:43 01/28/20 07:40 Coronavirus (PCR) Not detected (Not Detected) White Blood Count 6.7 x10^3/uL (4.0-11.0) Red Blood Count 3.32 x10^6/uL (3.50-5.40) Hemoglobin 9.8 g/dL (12.0-15.5) Hematocrit 29.6 % (36.0-47.0) Mean Corpuscular Volume 89 fL (79-100) Mean Corpuscular Hemoglobin 29 pg (25-35) Mean Corpuscular Hemoglobin Concent 33 g/dL (31-37) Red Cell Distribution Width 18.0 % (11.5-14.5) Platelet Count 218 x10^3/uL (140-400) Neutrophils (%) (Auto) 61 % (31-73) Lymphocytes (%) (Auto) 24 % (24-48) Monocytes (%) (Auto) 9 % (0-9) Eosinophils (%) (Auto) 5 % (0-3) Basophils (%) (Auto) 0 % (0-3) Neutrophils # (Auto) 4.1 x10^3/uL (1.8-7.7) Lymphocytes # (Auto) 1.6 x10^3/uL (1.0-4.8) Monocytes # (Auto) 0.6 x10^3/uL (0.0-1.1) Eosinophils # (Auto) 0.3 x10^3/uL (0.0-0.7) Basophils # (Auto) 0.0 x10^3/uL (0.0-0.2) Sodium Level 144 mmol/L (136-145) Potassium Level 3.5 mmol/L (3.5-5.1) Chloride Level 108 mmol/L (98-107) Carbon Dioxide Level 29 mmol/L (21-32) Anion Gap 7 (6-14) Blood Urea Nitrogen 34 mg/dL (7-20) Creatinine 1.4 mg/dL (0.6-1.0) Estimated GFR (Cockcroft-Gault) 35.5 BUN/Creatinine Ratio 24 (6-20) Glucose Level 87 mg/dL (70-99) Calcium Level 8.6 mg/dL (8.5-10.1) Total Bilirubin 0.3 mg/dL (0.2-1.0) Aspartate Amino Transf (AST/SGOT) 14 U/L (15-37) Alanine Aminotransferase (ALT/SGPT) 14 U/L (14-59) Alkaline Phosphatase 97 U/L (46-116) Total Protein 6.1 g/dL (6.4-8.2) Albumin 2.6 g/dL (3.4-5.0) Albumin/Globulin Ratio 0.7 (1.0-1.7) Laboratory Tests Test 01/28/20 07:40 White Blood Count 6.7 x10^3/uL (4.0-11.0) Red Blood Count 3.32 x10^6/uL (3.50-5.40) Hemoglobin 9.8 g/dL (12.0-15.5) Hematocrit 29.6 % (36.0-47.0) Mean Corpuscular Volume 89 fL (79-100) Mean Corpuscular Hemoglobin 29 pg (25-35) Mean Corpuscular Hemoglobin Concent 33 g/dL (31-37) Red Cell Distribution Width 18.0 % (11.5-14.5) Platelet Count 218 x10^3/uL (140-400) Neutrophils (%) (Auto) 61 % (31-73) Lymphocytes (%) (Auto) 24 % (24-48) Monocytes (%) (Auto) 9 % (0-9) Eosinophils (%) (Auto) 5 % (0-3) Basophils (%) (Auto) 0 % (0-3) Neutrophils # (Auto) 4.1 x10^3/uL (1.8-7.7) Lymphocytes # (Auto) 1.6 x10^3/uL (1.0-4.8) Monocytes # (Auto) 0.6 x10^3/uL (0.0-1.1) Eosinophils # (Auto) 0.3 x10^3/uL (0.0-0.7) Basophils # (Auto) 0.0 x10^3/uL (0.0-0.2) Sodium Level 144 mmol/L (136-145) Potassium Level 3.5 mmol/L (3.5-5.1) Chloride Level 108 mmol/L (98-107) Carbon Dioxide Level 29 mmol/L (21-32) Anion Gap 7 (6-14) Blood Urea Nitrogen 34 mg/dL (7-20) Creatinine 1.4 mg/dL (0.6-1.0) Estimated GFR (Cockcroft-Gault) 35.5 BUN/Creatinine Ratio 24 (6-20) Glucose Level 87 mg/dL (70-99) Calcium Level 8.6 mg/dL (8.5-10.1) Total Bilirubin 0.3 mg/dL (0.2-1.0) Aspartate Amino Transf (AST/SGOT) 14 U/L (15-37) Alanine Aminotransferase (ALT/SGPT) 14 U/L (14-59) Alkaline Phosphatase 97 U/L (46-116) Total Protein 6.1 g/dL (6.4-8.2) Albumin 2.6 g/dL (3.4-5.0) Albumin/Globulin Ratio 0.7 (1.0-1.7) Allergies Allergies Coded Allergies Type Severity Reaction Last Updated Verified No Known Drug Allergies 03/02/14 No Disposition/Orders: D/C to Home w/ HH Justicifation of Admission Dx: Justifications for Admission: Justification of Admission Dx: Yes KACIE ECHEVERRIA MD Jan 28, 2020 10:37
[2020-01-28] MEDS ORDERED: Diclofenac Sodium TP (10:41)
[2020-01-28] MEDS ORDERED: PRED-220 PO (10:41)
[2020-01-28] MEDS ORDERED: POTA20TA4 PO (10:41)
[2020-01-28] MEDS ORDERED: AMOX1TAB10 PO (10:41)
[2020-01-28] MEDS ORDERED: BENZ1LOZ4 PO (10:41)
--- NOTE | 2020-01-28 10:43 | SNU/HH DC ---
DISCHARGE WITH HOME HEALTH DISCHARGE INFORMATION: Final Diagnosis: Problems Medical Problems: (1) Acute on chronic renal insufficiency Status: Acute (2) Generalized weakness Status: Acute Condition on Discharge: Stable CODE STATUS: Code Status: Full HOME HEALTH: Face to Face: I certify this patient is under my care and that I, or a nurse practitioner or physician's medical office assistant instructor working with me, had a face to face encounter that meets the physician face to face encounter requirements with this patient on []. Medical Complications: DJD, Falls Correction For: Assess Cardiopulm Status, Assess & Educate Safety, Assess/Skilled Observatio, Bowel/Bladder Training, Medication Management, Pain Management RN For Eval/Treatment: Yes Physical Therapy For: Evalulation/Treatment Occupational Therapy For: Evaluation/Treatment Speech Language Pathology For: Evaluation/Treatment Home Health Aide For: Self-care DIETARY MANAGER For: Community Resources Pt Meets Homebound Status: Poor coordination w/ amb., Fatigue w/ amb. POST DISCHARGE ORDERS: Activity Instructions for Disc: Bedrest today Weight Bearing Status after Di: Non weight bearing Bathing Instructions: Shower-keep dressing dry DIET AFTER DISCHARGE: Cardiac Wound/Incision Care: Keep wound/cast CDI CHECKS AFTER DISCHARGE: Checks after discharge: Check blood press - daily, Weigh Yourself Daily TREATMENT/EQUIPMENT ORDERS: Adaptive Equipment Issued: Front wheeled walker CERTIFICATION STATEMENT: Certification Statement: Certification Statement: Based on the above finding, I certify that this patient is confined to the home and needs intermittent long-term care, physical therapy and/or speech therapy, or continues to need occupational therapy.~ This patient is under my care, and I have initiated the establishment of the plan of care.~ This patient will be followed by myself or a community physician who will periodically review the plan of care. Home Meds Active Scripts Prednisone (PREDNISONE ) 10 Mg Tablet, 10 MG PO DAILY for gout for 10 Days, #10 TAB Prov:KACIE ECHEVERRIA MD 01/28/20 Benzocaine/Menthol (SORE THROAT LOZENGE) 1 Each Lozenge, 1 ROB PO PRN Q2HRS PRN for SORE THROAT for 14 Days, #60 LOZENGE Prov:KACIE ECHEVERRIA MD 01/28/20 Potassium Chloride (KLOR-CON M20) 20 Meq Tab.er.prt, 20 MEQ PO DAILYWBKFT for supplement for 14 Days, #14 TAB.SR Prov:KACIE ECHEVERRIA MD 01/28/20 [Diclofenac Sodium 1% Topical] 100 GM GEL..GRAM. No Conflict Check, 1 HESHAM TP BID for arthritis for 14 Days, #28 EACH Prov:KACIE ECHEVERRIA MD 01/28/20 Amoxicillin/Potassium Clav (AMOX TR-K CLV 500-125 MG TAB) 1 Each Tablet, 1 TAB PO BID for uti for 7 Days, #14 TAB Prov:KACIE ECHEVERRIA MD 01/28/20 Metoprolol Tartrate (METOPROLOL TARTRATE) 25 Mg Tablet, 12.5 MG PO BID for htn, #60 TAB Prov:HYUN DOOLEY MD 12/31/19 Ibuprofen (IBUPROFEN) 600 Mg Tablet, 600 MG PO PRN Q6HRS PRN for PAIN, #20 TAB take with food or milk Prov:KOKO CASSIDY DO 12/23/19 Lactobacillus Rhamnosus Gg (CULTURELLE) 1 Each Cap.sprink, 1 CAP PO BID for Diarrhea for 7 Days, #14 CAP Prov:VICTORIANO TORRE MD 11/28/18 Reported Medications Tramadol Hcl (TRAMADOL HCL) 50 Mg Tablet, 25 MG PO BID PRN for PAIN, TAB 0 Refills 01/23/20 Risperidone (RISPERDAL) 1 Mg Tablet, 1 TAB PO QHS for mood for 30 Days, #30 TAB 0 Refills 01/23/20 Citalopram Hydrobromide (CITALOPRAM HBR) 20 Mg Tablet, 1 TAB PO DAILY for depression, #30 TAB 5 Refills 01/23/20 Ticagrelor (BRILINTA) 90 Mg Tablet, 90 MG PO BID for heart, TAB 11/26/18 Fexofenadine/Pseudoephedrine (YING-D 24 HOUR TABLET) 1 Each Tab.er.24h, 1 TAB PO DAILY, #30 TAB 2 Refills 08/11/17 Levothyroxine Sodium (LEVOTHYROXINE SODIUM) 88 Mcg Tablet, 88 MCG PO DAILY 08/11/17 Allopurinol (ALLOPURINOL) 100 Mg Tablet, 100 MG PO DAILY for gout, TAB 10/12/16 Pantoprazole Sodium (PANTOPRAZOLE SODIUM ) 40 Mg Tablet.dr, 40 MG PO DAILY for GERD, TAB 10/12/16 Aspirin (ASPIR-LOW) 81 Mg Tablet.dr, 1 TAB PO DAILY for blood thinner, #30 TAB 3 Refills 03/02/14 Simvastatin (SIMVASTATIN) 80 Mg Tablet, 1 TAB PO QHS for lowers cholesterol, #90 TAB 3 Refills 03/02/14 Furosemide (FUROSEMIDE) 40 Mg Tablet, 1 TAB PO DAILY for diuretic, #30 TAB 5 Refills 03/02/14 Discontinued Scripts Haloperidol (HALOPERIDOL) 2 Mg Tablet, 1 TAB PO Q6HRS PRN for DELIRIUM, #60 TAB Prov:HYUN DOOLEY MD 12/31/19 Hydrocodone/Apap 5-325 (NORCO 5-325 TABLET) 1 Each Tablet, 1 EACH PO PRN Q6HRS PRN for PAIN, #30 TAB as needed for pain Prov:HYUN DOOLEY MD 12/31/19 KACIE ECHEVERRIA MD Jan 28, 2020 10:43
[2020-01-28 11:00] VITALS: BP 129/53
--- NOTE | 2020-01-28 11:06 | NUR ---
SW following. Spoke with RN and reviewed chart. Pt to discharge home today with [facility] , , (fax). Patient Choice of Vendor form completed. Pt's sister to transport. orders for PT, OT, RN, SW phoned and faxed today. Pt's start of care will be 01/29 per admissions with [facility]. This requested that SW assist pt in her goal of moving to [facility]. also confirmed with Matthew from [facility] that they will deliver pt's walker that was ordered for her during her last SNU stay. No further SW needs at this time. Addendum: 01/28/20 at 1236 by LATANYA LUND [facility] called and they have declined patient per her insurance. Referral sent to Angela with [facility] and Patient Choice of Vendor form updated.
--- NOTE | 2020-01-28 13:14 | NUR ---
Discharge Note: NICKIE STAFFORD [place] Discharge instructions and discharge home medications reviewed with Patient and a copy given. All questions have been answered and understanding verbalized. The following instructions and handouts were given: discharge instructions, new prescriptions, education and follow up recommendations. Discontinued lines and drains: Peripheral IV discontinued intact. Patient discharged to Home w/services with [facility] Transport Personnel via Wheelchair
--- NOTE | 2020-01-29 14:55 | NUR ---
Phone call from Mina with pt's insurance company ([phone]) asking about status of pt's discharge. KEVON informed Lana that pt went home with HH.
== END 2020-01-28 13:17 | disposition home health service (06) | DRG 682 ==
LOC: ER 10:24 → 5 NORTH 13:00
PROVIDERS: ADMIT Internal Medicine; ATTEND Internal Medicine
DX: N17.0 Acute kidney failure with tubular necrosis (principal); G93.41 Metabolic encephalopathy; N39.0 Urinary tract infection, site not specified; I50.32 Chronic diastolic (congestive) heart failure; I13.0 Hypertensive heart and chronic kidney disease with heart failure and stage 1 through stage 4 chronic kidney disease, or unspecified chronic kidney disease; E44.0 Moderate protein-calorie malnutrition; G93.49 Other encephalopathy; N18.4 Chronic kidney disease, stage 4 (severe); Z20.828 Contact with and (suspected) exposure to other viral communicable diseases; E78.00 Pure hypercholesterolemia, unspecified; Z85.41 Personal history of malignant neoplasm of cervix uteri; M10.9 Gout, unspecified; R29.6 Repeated falls; E66.01 Morbid (severe) obesity due to excess calories; M17.0 Bilateral primary osteoarthritis of knee; I25.10 Atherosclerotic heart disease of native coronary artery without angina pectoris; I35.0 Nonrheumatic aortic (valve) stenosis; F03.90 Unspecified dementia, unspecified severity, without behavioral disturbance, psychotic disturbance, mood disturbance, and anxiety; E78.5 Hyperlipidemia, unspecified; G62.9 Polyneuropathy, unspecified; I89.0 Lymphedema, not elsewhere classified; E03.9 Hypothyroidism, unspecified; D63.1 Anemia in chronic kidney disease; Z60.2 Problems related to living alone; F32.9 Major depressive disorder, single episode, unspecified; M25.532 Pain in left wrist; M25.531 Pain in right wrist; K21.9 Gastro-esophageal reflux disease without esophagitis; Z90.5 Acquired absence of kidney; Z90.710 Acquired absence of both cervix and uterus; Z90.49 Acquired absence of other specified parts of digestive tract; I25.2 Old myocardial infarction; Z95.5 Presence of coronary angioplasty implant and graft; Z86.73 Personal history of transient ischemic attack (TIA), and cerebral infarction without residual deficits; Z83.3 Family history of diabetes mellitus; Z82.49 Family history of ischemic heart disease and other diseases of the circulatory system; Z91.81 History of falling; Z90.722 Acquired absence of ovaries, bilateral; Z68.34 Body mass index [BMI] 34.0-34.9, adult
CPT/HCPCS: 36415; 70450; 71045; 72125; 73100; 80048; 80053; 81001; 82553; 83605; 83690; 83735; 84484; 84550; 85007; 85025; 85610; 85730; 87040; 87077; 87086; 87186; 93005; 96360; 99285; J0696; J1030; J3490; J7030; J7040; J7512; 97110-GP; 97530-GO; 97530-GP; 97535-GO; G0378; U0003-CS

== ENCOUNTER 2020-02-17 22:43 | Observation (INO) | payer MEDICARE ==
[~2020-02-17] VITALS: Ht 152.4 cm; Wt 79.3 kg
[~2020-02-17 22:43] MED LIST changes: +AMOX1TAB10 PO; +BENZ1LOZ4 PO; +CITA20TA6 PO; +Diclofenac Sodium TP; +POTA20TA4 PO; +PRED-220 PO; +TRAM50TA PO
--- NOTE | 2020-02-17 23:12 | PHYS DOC ---
Past Medical History Past Medical History: Cancer, CHF, High Cholesterol, Hypertension, [place] Additional Past Medical Histor: lymphEDEMA BLE, CERVIX CA,GOUT, CELLULITIS; aortic stenosis; cervical ca Past Surgical History: Appendectomy, Cancer Surgery, Hysterectomy, Other Additional Past Surgical Histo: LESION ON HER RIGHT LEG REMOVED. cardiac stent; R nephrectomy Smoking Status: Never Smoker Alcohol Use: None Drug Use: None General Adult EDM: Chief Complaint: FEVER HPI: HPI: The history was obtained from the patient. Patient is a 89-year-old female with PMH cellulitis, hypertension, cervical cancer who presents with a chief complaint of shaking and chills. Patient states 20 minutes prior to arrival she had acute onset of shaking sensation and chills. Denies any objective fevers. Note she is been hospitalized multiple times recently for cellulitis. She states she is in the process of being placed in an assisted living facility but this would not be accomplished for another 2 to 3 months. She denies any falls or trauma. Denies any abdominal pain. Denies any chest pain or shortness of breath. Denies any urinary symptoms. States her legs feel slightly more swollen than normal but overall baseline. She does note some mild increase in redness but states they typically are always red. She notes she is not currently taking any antibiotics. She knows she is been on multiple antibiotics recently. States she lives at home by herself but her daughter lives 3 houses down. Does ambulate with the assistance of a walker at baseline. Denies vomiting. Denies headaches. States she is been tested for COVID multiple times recently have all been negative. No other complaints. Review of Systems: Review of Systems: Constitutional: De positive for chills Eyes: Denies change in visual acuity. [] HENT: Denies nasal congestion or sore throat. [] Respiratory: Denies cough or shortness of breath. [] Cardiovascular: Denies chest pain or edema. [] GI: Denies abdominal pain, nausea, vomiting, bloody stools or diarrhea. [] : Denies dysuria. [] Musculoskeletal: Denies back pain or joint pain. [] Integument: Denies rash. [] Neurologic: Denies headache, focal weakness or sensory changes. [] Endocrine: Denies polyuria or polydipsia. [] Lymphatic: Denies swollen glands. [] Psychiatric: Denies depression or anxiety. [] Heart Score: Risk Factors: Risk Factors: DM, Current or recent (<one month) smoker, HTN, HLP, family history of CAD, obesity. Risk Scores: Score 0 - 3: 2.5% MACE over next 6 weeks - Discharge Home Score 4 - 6: 20.3% MACE over next 6 weeks - Admit for Clinical Observation Score 7 - 10: 72.7% MACE over next 6 weeks - Early Invasive Strategies Allergies: Allergies: Allergies Coded Allergies Type Severity Reaction Last Updated Verified No Known Drug Allergies 03/02/14 No Physical Exam: PE: Constitutional: Well developed, well nourished, no acute distress, non-toxic appearance. [] HENT: Normocephalic, atraumatic, bilateral external ears normal, oropharynx moist, no oral exudates, nose normal. [] Eyes: PERRLA, EOMI, conjunctiva normal, no discharge. [] Neck: Normal range of motion, no tenderness, supple, no stridor. [] Cardiovascular:Heart rate regular rhythm, no murmur [] Lungs & Thorax: Bilateral breath sounds clear to auscultation [] Abdomen soft, nontender, nonacute abdomen. No involuntary guarding or rigidity noted. No acute peritonitis. Skin: Warm, dry, no erythema, no rash. [] Back: No tenderness, no CVA tenderness. [] Extremities: +1-4 pitting edema in the lower extremities bilaterally. Mild overlying erythema. No induration or palpable areas of fluctuance noted. No crepitus palpated. Neurologic: Alert and oriented X 3, normal motor function, normal sensory function, no focal deficits noted. [] Psychologic: Affect normal, judgement normal, mood normal. [] Current Patient Data: Labs: Laboratory Tests Test 02/17/20 23:40 02/18/20 00:45 White Blood Count 16.3 x10^3/uL Red Blood Count 4.04 x10^6/uL Hemoglobin 11.8 g/dL Hematocrit 35.6 % Mean Corpuscular Volume 88 fL Mean Corpuscular Hemoglobin 29 pg Mean Corpuscular Hemoglobin Concent 33 g/dL Red Cell Distribution Width 17.9 % Platelet Count 311 x10^3/uL Neutrophils (%) (Auto) 86 % Lymphocytes (%) (Auto) 9 % Monocytes (%) (Auto) 3 % Eosinophils (%) (Auto) 2 % Basophils (%) (Auto) 1 % Neutrophils # (Auto) 14.0 x10^3/uL Lymphocytes # (Auto) 1.4 x10^3/uL Monocytes # (Auto) 0.5 x10^3/uL Eosinophils # (Auto) 0.3 x10^3/uL Basophils # (Auto) 0.1 x10^3/uL Platelet Estimate Pending Sodium Level 140 mmol/L Potassium Level 3.5 mmol/L Chloride Level 105 mmol/L Carbon Dioxide Level 25 mmol/L Anion Gap 10 Blood Urea Nitrogen 31 mg/dL Creatinine 1.4 mg/dL Estimated GFR (Cockcroft-Gault) 35.5 BUN/Creatinine Ratio 22 Glucose Level 112 mg/dL Calcium Level 9.0 mg/dL Total Bilirubin 0.3 mg/dL Aspartate Amino Transf (AST/SGOT) 13 U/L Alanine Aminotransferase (ALT/SGPT) 11 U/L Alkaline Phosphatase 103 U/L Total Protein 7.4 g/dL Albumin 3.0 g/dL Albumin/Globulin Ratio 0.7 Urine Collection Type Unknown Urine Color Yellow Urine Clarity Cloudy Urine pH 6.0 Urine Specific [place] 1.010 Urine Protein Negative mg/dL Urine Glucose (UA) Negative mg/dL Urine Ketones (Stick) Negative mg/dL Urine Blood Trace Urine Nitrite Negative Urine Bilirubin Negative Urine Urobilinogen Dipstick 0.2 mg/dL Urine Leukocyte Esterase Large Urine RBC Occ /HPF Urine WBC Tntc /HPF Urine Squamous Epithelial Cells Many /LPF Urine Bacteria Moderate /HPF EKG: EKG: [] EKG consistent with sinus tachycardia. Ventricular rate of 101 bpm. Left axis noted. Intervals normal. No acute ischemic changes appreciated. Small Q waves noted in lead III. Similar to previous. Radiology/Procedures: Radiology/Procedures: [facility] [address] [place] [address] IMAGING REPORT Signed PATIENT: NICKIE STAFFORD ACCOUNT: [id number] : 1930 LOCATION: ER AGE: 89 SEX: F EXAM STATUS: REG ER ORD. PHYSICIAN: KOKO CASSIDY DO REASON: weakness PROCEDURE: CHEST AP ONLY EXAM: CHEST AP ONLY 02/17/2020 11:10 PM CLINICAL INDICATION: Weakness COMPARISON: Chest radiograph 01/23/2020 TECHNIQUE: AP semiupright view of the chest FINDINGS: The cardiomediastinal silhouette is unchanged. The lungs are hypoexpanded. There is no consolidation, pleural effusion, or pneumothorax. No pulmonary edema. There are vascular calcifications in the aorta. Degenerative changes at the right glenohumeral acromioclavicular joint. IMPRESSION: No acute cardiopulmonary abnormality. Electronically signed by: Marisela Vega MD (02/18/2020 12:30 AM) [id number] DICTATED and SIGNED BY: MARISELA VEGA MD DATE: 02/18/20 0030 [] Course & Med Decision Making: Course & Med Decision Making Pertinent Labs and Imaging studies reviewed. (See chart for details) [] Patient is a 89-year-old female who presents with chief complaint of shaking and feeling of chills 20 minutes prior to arrival. Vital signs unremarkable. EKG without ischemic changes. Basic labs were obtained. She does have a mild leukocytosis of 16,000. Electrolytes otherwise within normal limits. Creatinine of 1.4 appears stable with baseline. Per chart review patient's lower extremities have been examined by infectious disease recently and they do not feel this is likely infectious in nature. Urine does show some evidence of bacteria. Patient has had multiple COVID test within the last several weeks that have all been negative. Repeat testing will be deferred today as she denies any chest pain, shortness of breath, cough, no objective fevers. Overall I do feel the patient is appropriate for discharge home, however given her age and comorbidities I did discuss the possibility of hospitalization for observation. She is requesting discharge home. I do feel this is reasonable. Prior to being discharged home patient did attempt to stand and ambulate with the assistance of her walker which is baseline for her. She was unable to ambulate any steps. She she is unable to ambulate at all in the emergency department. She will require hospitalization. I do feel the patient would benefit from placement into a rehabilitation facility or retirement facility for close monitoring and care full-time. Patient was given 1 g of oral Keflex for potential cellulitis developing of her lower extremities. Patient will be hospitalized for further care. Dragon Disclaimer: Blank Disclaimer: This electronic medical record was generated, in whole or in part, using a voice recognition dictation system. Departure Departure Impression: Primary Impression: CKD (chronic kidney disease), stage IV Additional Impressions: Chills Adult failure to thrive Unable to ambulate Disposition: ADMITTED INPATIENT Condition: STABLE Referrals: ADRIANA ROSARIO MD (PCP) Patient Instructions: Cellulitis Additional Instructions: Please follow-up with your primary care physician in the next 2 to 3 days. Scripts Cephalexin (KEFLEX) 500 Mg Capsule 1 CAP PO QID for 5 Days, #20 CAP 0 Refills Prov: KOKO CASSIDY DO 02/18/20 Justicifation of Admission Dx: Justifications for Admission: Justification of Admission Dx: Yes Sepsis: Infection Cellulitis: Cellulitis KOKO CASSIDY DO Feb 17, 2020 23:12
[2020-02-17 23:48] LABS: BASO # 0.1 x10^3/uL (0.0-0.2); BASO % 1 % (0-3); EOS # 0.3 x10^3/uL (0.0-0.7); EOS % 2 % (0-3); HEMATOCRIT 35.6 % (36.0-47.0); HEMOGLOBIN 11.8 g/dL (12.0-15.5); LYMPH # 1.4 x10^3/uL (1.0-4.8); LYMPH % 9 % (24-48); MEAN CORPUSCULAR HEMOGLOBIN 29 pg (25-35); MEAN CORPUSCULAR HGB CONC 33 g/dL (31-37); MEAN CORPUSCULAR VOLUME 88 fL (79-100); MONO # 0.5 x10^3/uL (0.0-1.1); MONO % 3 % (0-9); NEUT % 86 % (31-73); PLATELET COUNT 311 x10^3/uL (140-400); RED BLOOD COUNT 4.04 x10^6/uL (3.50-5.40); RED CELL DISTRIBUTION WIDTH 17.9 % (11.5-14.5); WHITE BLOOD COUNT 16.3 x10^3/uL (4.0-11.0)
[2020-02-17 23:57] LABS: CREATININE 1.4 mg/dL (0.6-1.0); GFR 35.5; POTASSIUM 3.5 mmol/L (3.5-5.1)
[2020-02-18 00:02] LABS: ALBUMIN/GLOBULIN RATIO 0.7 (1.0-1.7); TOTAL BILIRUBIN 0.3 mg/dL (0.2-1.0); TOTAL PROTEIN 7.4 g/dL (6.4-8.2)
--- NOTE | 2020-02-18 00:33 | RAD ---
EXAM: CHEST AP ONLY 02/17/2020 11:10 PM CLINICAL INDICATION: Weakness COMPARISON: Chest radiograph 01/23/2020 TECHNIQUE: AP semiupright view of the chest FINDINGS: The cardiomediastinal silhouette is unchanged. The lungs are hypoexpanded. There is no consolidation, pleural effusion, or pneumothorax. No pulmonary edema. There are vascular calcifications in the aorta. Degenerative changes at the right glenohumeral acromioclavicular joint. IMPRESSION: No acute cardiopulmonary abnormality. Electronically signed by: Marisela Vega MD (02/18/2020 12:30 AM) [id number]
[2020-02-18 00:58] LABS: BILIRUBIN,URINE NEGATIVE (NEG); CLARITY,URINE CLOUDY; COLOR,URINE YELLOW; NITRITE,URINE NEGATIVE (NEG); PROTEIN,URINE NEGATIVE (NEG-TRACE); UROBILINOGEN,URINE 0.2 mg/dL (0.2 mg/dL)
[2020-02-18 01:08] LABS: BACTERIA,URINE MODERATE /HPF (0-FEW); RBC,URINE OCC /HPF (0-2); WBC,URINE TNTC /HPF (0-4)
[2020-02-18] MEDS ORDERED: CEPH-264 PO ×2 (01:25→10:02)
[2020-02-18] MEDS ORDERED: CEPHALEXIN 250 MG CAPSULE. PO ONE (01:30)
[2020-02-18 04:00] VITALS: BP 107/59
[2020-02-18 04:25] LABS: % BANDS 4 % (0-9); % LYMPHS 9 % (24-48); % MONOS 2 % (0-10); % SEGS 85 % (35-66); PLT ESTIMATE ADEQUATE (ADEQUATE)
[2020-02-18 07:00] VITALS: BP 147/58
[2020-02-18] MEDS ORDERED: traMADol 50 MG TABLET PO PRN (07:15)
[2020-02-18] MEDS ORDERED: BENZOCAINE/MENTHOL LOZENGE. PO PRN (07:15)
--- NOTE | 2020-02-18 07:39 | PDOC1 ---
History and Physical Date of Admission Date of Admission DATE: 02/18/20 TIME: 07:35 Identification/Chief Complaint Chief Complaint Chills Source Source: Chart review, Patient History of Present Illness History of Present Illness Patient is a 89-year-old female with past medical history of chronic lymphedema, chronic stasis dermatitis, who presents to the ER with complaints of chills that began yesterday. She denies any associated fever. She presented with swollen and red legs concerning for cellulitis. She was admitted mostly for her debility and the fact that she lives alone, and started on Keflex. At the time of my evaluation patient states her chills and symptoms have resolved, and she would like to go home. She lives close to her daughter who checks on her daily, and she can follow-up closely with her PCP. She denies any fevers, dysuria, urinary frequency, urinary urgency, or suprapubic tenderness. Past Medical History Cardiovascular: CAD, CHF, HTN, Hyperlipidemia, Aortic stenosis Pulmonary: Bronchitis CENTRAL NERVOUS SYSTEM: CVA GI: GERD Heme/Onc: Anemia NOS, Cancer Psych: Depression Musculoskeletal: Osteoarthritis, Other Rheumatologic: Gout Infectious disease: Other Renal/: Chronic renal insuff Endocrine: Hypothyroidism Past Surgical History Past Surgical History Right nephrectomy hysterectomy with oophorectomy, left cataract removal Past Surgical History: Appendectomy Family History Family History Lung cancer, multiple sclerosis, heart disease, diabetes, SIDS Family History: Hypertension Social History Smoke: No ALCOHOL: none Drugs: None Current Problem List Problem List Problems Medical Problems: (1) Adult failure to thrive Status: Acute (2) Chills Status: Acute (3) Unable to ambulate Status: Acute Current Medications Current Medications Current Medications Cephalexin HCl (Keflex) 1,000 mg 1X ONCE PO Last administered on 02/18/20at 02:30; Start 02/18/20 at 01:30; Stop 02/18/20 at 01:31; Status DC Allopurinol (Zyloprim) 100 mg DAILY PO ; Start 02/18/20 at 09:00 Aspirin (Ecotrin) 81 mg DAILY PO ; Start 02/18/20 at 09:00 Throat Lozenges (Cepacol Sore Throat Lozenge) 1 liz PRN Q2HRS PRN PO SORE THROAT; Start 02/18/20 at 07:15 Citalopram Hydrobromide (CeleXA) 20 mg DAILY PO ; Start 02/18/20 at 09:00 Furosemide (Lasix) 40 mg DAILY PO ; Start 02/18/20 at 09:00 Lactobacillus Rhamnosus (Culturelle) 1 cap BID PO ; Start 02/18/20 at 09:00 Levothyroxine Sodium (Synthroid) 88 mcg DAILY07 PO ; Start 02/18/20 at 09:00 Pantoprazole Sodium (Protonix) 40 mg DAILYAC PO ; Start 02/18/20 at 09:00 Potassium Chloride (Klor-Con) 20 meq DAILYWBKFT PO ; Start 02/18/20 at 08:00 Risperidone (RisperDAL) 1 mg QHS PO ; Start 02/18/20 at 21:00 Ticagrelor (Brilinta) 90 mg BID PO ; Start 02/18/20 at 09:00 Tramadol HCl (Ultram) 25 mg PRN BID PRN PO PAIN; Start 02/18/20 at 07:15 Cetirizine HCl (ZyrTEC) 10 mg DAILY PO ; Start 02/18/20 at 09:00 Simvastatin (Zocor) 80 mg QHS PO ; Start 02/18/20 at 21:00 Diclofenac Sodium (Voltaren) 1 shabbir BID TP ; Start 02/18/20 at 09:00 Pseudoephedrine HCl (Sudafed 12-Hour) 120 mg DAILY PO ; Start 02/18/20 at 09:00 Active Scripts Active Keflex (Cephalexin) 500 Mg Capsule 1 Cap PO QID 5 Days Prednisone (Prednisone) 10 Mg Tablet 10 Mg PO DAILY 10 Days Sore Throat Lozenge (Benzocaine/Menthol) 1 Each Lozenge 1 Liz PO PRN Q2HRS PRN 14 Days Klor-Con M20 (Potassium Chloride) 20 Meq Tab.er.prt 20 Meq PO DAILYWBKFT 14 Days [Diclofenac Sodium] 100 GM Gel..gram. 1 Shabbir TP BID 14 Days Culturelle (Lactobacillus Rhamnosus Gg) 1 Each Cap.sprink 1 Cap PO BID 7 Days Reported Tramadol Hcl 50 Mg Tablet 25 Mg PO BID PRN Risperdal (Risperidone) 1 Mg Tablet 1 Tab PO QHS 30 Days Citalopram Hbr (Citalopram Hydrobromide) 20 Mg Tablet 1 Tab PO DAILY Brilinta (Ticagrelor) 90 Mg Tablet 90 Mg PO BID Tova-D 24 Hour Tablet (Fexofenadine/Pseudoephedrine) 1 Each Tab.er.24h 1 Tab PO DAILY Levothyroxine Sodium 88 Mcg Tablet 88 Mcg PO DAILY Allopurinol 100 Mg Tablet 100 Mg PO DAILY Pantoprazole Sodium (Pantoprazole Sodium) 40 Mg Tablet. 40 Mg PO DAILY Aspir-Low (Aspirin) 81 Mg Tablet.dr 1 Tab PO DAILY Simvastatin 80 Mg Tablet 1 Tab PO QHS Furosemide 40 Mg Tablet 1 Tab PO DAILY Allergies Allergies: Coded Allergies: No Known Drug Allergies (Unverified , 03/02/14) ROS Review of System GENERAL: Chills. No history of weight change, weakness or fevers. SKIN: No bruising, hair changes or rashes. EYES: No blurred, double or loss of vision. NOSE AND THROAT: No history of nosebleeds, hoarseness or sore throat. HEART: Denies chest pain, denies palpitations. LUNGS: Denies cough, hemoptysis, wheezing or shortness of breath. GASTROINTESTINAL: Denies nausea, vomiting, abdominal pain. GENITOURINARY: Denies dysuria, frequency, urgency, hematuria. NEUROLOGIC: Denies history of numbness, tingling, tremor or weakness. PSYCHIATRIC: Denies anxiety, denies depression. ENDOCRINE: No history of heat or cold intolerance, polyuria or polydipsia. EXTREMITIES: Leg swelling. Physical Exam Physical Exam General: Alert, Oriented X3, Cooperative, No acute distress HEENT: PERRLA, EOMI Lungs: Clear to auscultation, Normal air movement Heart: RRR, no murmurs Cardiovascular: S1, S2 Abdomen: Normal bowel sounds, Soft, No tenderness Extremities: Bilateral lower extremity swelling. No clubbing, No cyanosis Skin: Bilateral lower extremity erythema Neuro: Normal speech, Normal tone, Sensation intact Psych/Mental Status: Mental status NL, Mood NL Vitals Vitals Vital Signs Date Time Temp Pulse Resp B/P (MAP) Pulse Ox O2 Delivery O2 Flow Rate FiO2 02/18/20 05:07 Room Air 02/18/20 04:00 98.2 95 19 107/59 (75) 96 98.2 Labs Labs Laboratory Tests Test 02/17/20 23:40 02/18/20 00:45 White Blood Count 16.3 x10^3/uL (4.0-11.0) Red Blood Count 4.04 x10^6/uL (3.50-5.40) Hemoglobin 11.8 g/dL (12.0-15.5) Hematocrit 35.6 % (36.0-47.0) Mean Corpuscular Volume 88 fL (79-100) Mean Corpuscular Hemoglobin 29 pg (25-35) Mean Corpuscular Hemoglobin Concent 33 g/dL (31-37) Red Cell Distribution Width 17.9 % (11.5-14.5) Platelet Count 311 x10^3/uL (140-400) Neutrophils (%) (Auto) 86 % (31-73) Lymphocytes (%) (Auto) 9 % (24-48) Monocytes (%) (Auto) 3 % (0-9) Eosinophils (%) (Auto) 2 % (0-3) Basophils (%) (Auto) 1 % (0-3) Neutrophils # (Auto) 14.0 x10^3/uL (1.8-7.7) Lymphocytes # (Auto) 1.4 x10^3/uL (1.0-4.8) Monocytes # (Auto) 0.5 x10^3/uL (0.0-1.1) Eosinophils # (Auto) 0.3 x10^3/uL (0.0-0.7) Basophils # (Auto) 0.1 x10^3/uL (0.0-0.2) Segmented Neutrophils % 85 % (35-66) Band Neutrophils % 4 % (0-9) Lymphocytes % 9 % (24-48) Monocytes % 2 % (0-10) Platelet Estimate Adequate (ADEQUATE) Sodium Level 140 mmol/L (136-145) Potassium Level 3.5 mmol/L (3.5-5.1) Chloride Level 105 mmol/L (98-107) Carbon Dioxide Level 25 mmol/L (21-32) Anion Gap 10 (6-14) Blood Urea Nitrogen 31 mg/dL (7-20) Creatinine 1.4 mg/dL (0.6-1.0) Estimated GFR (Cockcroft-Gault) 35.5 BUN/Creatinine Ratio 22 (6-20) Glucose Level 112 mg/dL (70-99) Calcium Level 9.0 mg/dL (8.5-10.1) Total Bilirubin 0.3 mg/dL (0.2-1.0) Aspartate Amino Transf (AST/SGOT) 13 U/L (15-37) Alanine Aminotransferase (ALT/SGPT) 11 U/L (14-59) Alkaline Phosphatase 103 U/L (46-116) Total Protein 7.4 g/dL (6.4-8.2) Albumin 3.0 g/dL (3.4-5.0) Albumin/Globulin Ratio 0.7 (1.0-1.7) Urine Collection Type Unknown Urine Color Yellow Urine Clarity Cloudy Urine pH 6.0 (<5.0-8.0) Urine Specific [place] 1.010 (1.000-1.030) Urine Protein Negative mg/dL (NEG-TRACE) Urine Glucose (UA) Negative mg/dL (NEG) Urine Ketones (Stick) Negative mg/dL (NEG) Urine Blood Trace (NEG) Urine Nitrite Negative (NEG) Urine Bilirubin Negative (NEG) Urine Urobilinogen Dipstick 0.2 mg/dL (0.2 mg/dL) Urine Leukocyte Esterase Large (NEG) Urine RBC Occ /HPF (0-2) Urine WBC Tntc /HPF (0-4) Urine Squamous Epithelial Cells Many /LPF Urine Bacteria Moderate /HPF (0-FEW) Laboratory Tests Test 02/17/20 23:40 02/18/20 00:45 White Blood Count 16.3 x10^3/uL (4.0-11.0) Red Blood Count 4.04 x10^6/uL (3.50-5.40) Hemoglobin 11.8 g/dL (12.0-15.5) Hematocrit 35.6 % (36.0-47.0) Mean Corpuscular Volume 88 fL (79-100) Mean Corpuscular Hemoglobin 29 pg (25-35) Mean Corpuscular Hemoglobin Concent 33 g/dL (31-37) Red Cell Distribution Width 17.9 % (11.5-14.5) Platelet Count 311 x10^3/uL (140-400) Neutrophils (%) (Auto) 86 % (31-73) Lymphocytes (%) (Auto) 9 % (24-48) Monocytes (%) (Auto) 3 % (0-9) Eosinophils (%) (Auto) 2 % (0-3) Basophils (%) (Auto) 1 % (0-3) Neutrophils # (Auto) 14.0 x10^3/uL (1.8-7.7) Lymphocytes # (Auto) 1.4 x10^3/uL (1.0-4.8) Monocytes # (Auto) 0.5 x10^3/uL (0.0-1.1) Eosinophils # (Auto) 0.3 x10^3/uL (0.0-0.7) Basophils # (Auto) 0.1 x10^3/uL (0.0-0.2) Segmented Neutrophils % 85 % (35-66) Band Neutrophils % 4 % (0-9) Lymphocytes % 9 % (24-48) Monocytes % 2 % (0-10) Platelet Estimate Adequate (ADEQUATE) Sodium Level 140 mmol/L (136-145) Potassium Level 3.5 mmol/L (3.5-5.1) Chloride Level 105 mmol/L (98-107) Carbon Dioxide Level 25 mmol/L (21-32) Anion Gap 10 (6-14) Blood Urea Nitrogen 31 mg/dL (7-20) Creatinine 1.4 mg/dL (0.6-1.0) Estimated GFR (Cockcroft-Gault) 35.5 BUN/Creatinine Ratio 22 (6-20) Glucose Level 112 mg/dL (70-99) Calcium Level 9.0 mg/dL (8.5-10.1) Total Bilirubin 0.3 mg/dL (0.2-1.0) Aspartate Amino Transf (AST/SGOT) 13 U/L (15-37) Alanine Aminotransferase (ALT/SGPT) 11 U/L (14-59) Alkaline Phosphatase 103 U/L (46-116) Total Protein 7.4 g/dL (6.4-8.2) Albumin 3.0 g/dL (3.4-5.0) Albumin/Globulin Ratio 0.7 (1.0-1.7) Urine Collection Type Unknown Urine Color Yellow Urine Clarity Cloudy Urine pH 6.0 (<5.0-8.0) Urine Specific [place] 1.010 (1.000-1.030) Urine Protein Negative mg/dL (NEG-TRACE) Urine Glucose (UA) Negative mg/dL (NEG) Urine Ketones (Stick) Negative mg/dL (NEG) Urine Blood Trace (NEG) Urine Nitrite Negative (NEG) Urine Bilirubin Negative (NEG) Urine Urobilinogen Dipstick 0.2 mg/dL (0.2 mg/dL) Urine Leukocyte Esterase Large (NEG) Urine RBC Occ /HPF (0-2) Urine WBC Tntc /HPF (0-4) Urine Squamous Epithelial Cells Many /LPF Urine Bacteria Moderate /HPF (0-FEW) Images Images EXAM: CHEST AP ONLY 02/17/2020 11:10 PM CLINICAL INDICATION: Weakness COMPARISON: Chest radiograph 01/23/2020 TECHNIQUE: AP semiupright view of the chest FINDINGS: The cardiomediastinal silhouette is unchanged. The lungs are hypoexpanded. There is no consolidation, pleural effusion, or pneumothorax. No pulmonary edema. There are vascular calcifications in the aorta. Degenerative changes at the right glenohumeral acromioclavicular joint. IMPRESSION: No acute cardiopulmonary abnormality. Left lower extremity arterial ultrasound (02/10/2020) History:History of left femoral to popliteal bypass, lymphedema, cellulitis Findings: Multiple grayscale, color, and duplex spectral analysis sonographic images were acquired of the left lower extremity arteries. There is monophasic waveform of the anterior tibial artery, otherwise biphasic waveforms of the left lower extremity arteries. No vessel occlusion is demonstrated. There is edema of the soft tissues. Velocities in cm/sec: Common femoral artery 118 Profunda femoris artery 95 Proximal SFA 137 Mid SFA 105 Distal SFA 102 Popliteal artery 107 Posterior tibial artery 48 proximally and 85 distally Peroneal artery 89 Anterior tibial artery 92 Dorsalis pedis artery 58 Impression: 1. No vessel occlusion is demonstrated. VTE Prophylaxis Ordered VTE Prophylaxis Devices: No VTE Pharmacological Prophylaxi: Yes Assessment/Plan Assessment/Plan Leukocytosis Cellulitis Chronic stasis dermatitis Chronic edema Chronic renal sufficiency Malnutrition Plan: Patient states last time she had any steroids was her last hospitalization roughly 5 days ago. Leukocytosis may be reactive as she is afebrile and clinically does not appear ill. The swelling of her legs is consistent with chronic lymphedema. Will discharge with oral antibiotics to cover for cellulitis and recommend leg elevation at home. Urinalysis reflective of a contaminated urine catch and not UTI, and patient has no urinary symptoms. Advanced care planning was discussed with patient for approximately 15 minutes, patient states that she does not want any aggressive end-of-life procedures including chest compression and intubation, she would like her CODE STATUS to be DNR. FEN - Cardiac diet FULL CODE Dispo - inpatient for above Justifications for Admission Other Justification sepsis KEV AKERS MD Feb 18, 2020 07:39
[2020-02-18] MEDS: PSEUDOEPHEDRINE ER 120 MG TABLET.ER. PO SCH (09:00)
[2020-02-18] MEDS: DICLOFENAC SODIUM 1% TOPICAL GEL 100GM TUBE. TP SCH ×2 (09:00→20:48)
[2020-02-18] MEDS: TICAGRELOR 90 MG TABLET. PO SCH ×2 (09:00→20:48)
[2020-02-18] MEDS: ASPIRIN ENTERIC COATED 81 MG TABLET.DR. PO SCH (09:55)
[2020-02-18] MEDS: CETIRIZINE HCL 10 MG TABLET. PO SCH (09:55)
[2020-02-18] MEDS: POTASSIUM CHLORIDE 20 MEQ TABLET.ER. PO SCH (09:55)
[2020-02-18] MEDS: CITALOPRAM 20 MG TABLET. PO SCH (09:55)
[2020-02-18] MEDS: LACTOBACILLUS RHAMNOSUS GG 1 CAPSULE. PO SCH ×2 (09:56→20:48)
[2020-02-18] MEDS: ALLOPURINOL 100 MG TABLET. PO SCH (09:56)
[2020-02-18] MEDS: FUROSEMIDE 40 MG TABLET. PO SCH (09:56)
[2020-02-18] MEDS: LEVOTHYROXINE 88 MCG TABLET PO SCH (09:57)
[2020-02-18] MEDS: PANTOPRAZOLE 40 MG TABLET.DR. PO SCH (09:57)
--- NOTE | 2020-02-18 09:57 | PDOC3 ---
Discharge Summary Visit Information Date of Admission: Feb 17, 2020 Date of Discharge: Feb 19, 2020 Final Diagnosis Problems Medical Problems: (1) Adult failure to thrive Status: Acute (2) Cellulitis Status: Acute (3) Chills Status: Acute (4) Unable to ambulate Status: Acute Brief Hospital Course Allergies Allergies Coded Allergies Type Severity Reaction Last Updated Verified No Known Drug Allergies 03/02/14 No Vital Signs Vital Signs Date Time Temp Pulse Resp B/P (MAP) Pulse Ox O2 Delivery O2 Flow Rate FiO2 02/18/20 05:07 Room Air 02/18/20 04:00 98.2 95 19 107/59 (75) 96 98.2 Lab Results Laboratory Tests Test 02/17/20 23:40 02/18/20 00:45 White Blood Count 16.3 x10^3/uL (4.0-11.0) Red Blood Count 4.04 x10^6/uL (3.50-5.40) Hemoglobin 11.8 g/dL (12.0-15.5) Hematocrit 35.6 % (36.0-47.0) Mean Corpuscular Volume 88 fL (79-100) Mean Corpuscular Hemoglobin 29 pg (25-35) Mean Corpuscular Hemoglobin Concent 33 g/dL (31-37) Red Cell Distribution Width 17.9 % (11.5-14.5) Platelet Count 311 x10^3/uL (140-400) Neutrophils (%) (Auto) 86 % (31-73) Lymphocytes (%) (Auto) 9 % (24-48) Monocytes (%) (Auto) 3 % (0-9) Eosinophils (%) (Auto) 2 % (0-3) Basophils (%) (Auto) 1 % (0-3) Neutrophils # (Auto) 14.0 x10^3/uL (1.8-7.7) Lymphocytes # (Auto) 1.4 x10^3/uL (1.0-4.8) Monocytes # (Auto) 0.5 x10^3/uL (0.0-1.1) Eosinophils # (Auto) 0.3 x10^3/uL (0.0-0.7) Basophils # (Auto) 0.1 x10^3/uL (0.0-0.2) Segmented Neutrophils % 85 % (35-66) Band Neutrophils % 4 % (0-9) Lymphocytes % 9 % (24-48) Monocytes % 2 % (0-10) Platelet Estimate Adequate (ADEQUATE) Sodium Level 140 mmol/L (136-145) Potassium Level 3.5 mmol/L (3.5-5.1) Chloride Level 105 mmol/L (98-107) Carbon Dioxide Level 25 mmol/L (21-32) Anion Gap 10 (6-14) Blood Urea Nitrogen 31 mg/dL (7-20) Creatinine 1.4 mg/dL (0.6-1.0) Estimated GFR (Cockcroft-Gault) 35.5 BUN/Creatinine Ratio 22 (6-20) Glucose Level 112 mg/dL (70-99) Calcium Level 9.0 mg/dL (8.5-10.1) Total Bilirubin 0.3 mg/dL (0.2-1.0) Aspartate Amino Transf (AST/SGOT) 13 U/L (15-37) Alanine Aminotransferase (ALT/SGPT) 11 U/L (14-59) Alkaline Phosphatase 103 U/L (46-116) Total Protein 7.4 g/dL (6.4-8.2) Albumin 3.0 g/dL (3.4-5.0) Albumin/Globulin Ratio 0.7 (1.0-1.7) Urine Collection Type Unknown Urine Color Yellow Urine Clarity Cloudy Urine pH 6.0 (<5.0-8.0) Urine Specific [place] 1.010 (1.000-1.030) Urine Protein Negative mg/dL (NEG-TRACE) Urine Glucose (UA) Negative mg/dL (NEG) Urine Ketones (Stick) Negative mg/dL (NEG) Urine Blood Trace (NEG) Urine Nitrite Negative (NEG) Urine Bilirubin Negative (NEG) Urine Urobilinogen Dipstick 0.2 mg/dL (0.2 mg/dL) Urine Leukocyte Esterase Large (NEG) Urine RBC Occ /HPF (0-2) Urine WBC Tntc /HPF (0-4) Urine Squamous Epithelial Cells Many /LPF Urine Bacteria Moderate /HPF (0-FEW) Laboratory Tests Test 02/17/20 23:40 02/18/20 00:45 White Blood Count 16.3 x10^3/uL (4.0-11.0) Red Blood Count 4.04 x10^6/uL (3.50-5.40) Hemoglobin 11.8 g/dL (12.0-15.5) Hematocrit 35.6 % (36.0-47.0) Mean Corpuscular Volume 88 fL (79-100) Mean Corpuscular Hemoglobin 29 pg (25-35) Mean Corpuscular Hemoglobin Concent 33 g/dL (31-37) Red Cell Distribution Width 17.9 % (11.5-14.5) Platelet Count 311 x10^3/uL (140-400) Neutrophils (%) (Auto) 86 % (31-73) Lymphocytes (%) (Auto) 9 % (24-48) Monocytes (%) (Auto) 3 % (0-9) Eosinophils (%) (Auto) 2 % (0-3) Basophils (%) (Auto) 1 % (0-3) Neutrophils # (Auto) 14.0 x10^3/uL (1.8-7.7) Lymphocytes # (Auto) 1.4 x10^3/uL (1.0-4.8) Monocytes # (Auto) 0.5 x10^3/uL (0.0-1.1) Eosinophils # (Auto) 0.3 x10^3/uL (0.0-0.7) Basophils # (Auto) 0.1 x10^3/uL (0.0-0.2) Segmented Neutrophils % 85 % (35-66) Band Neutrophils % 4 % (0-9) Lymphocytes % 9 % (24-48) Monocytes % 2 % (0-10) Platelet Estimate Adequate (ADEQUATE) Sodium Level 140 mmol/L (136-145) Potassium Level 3.5 mmol/L (3.5-5.1) Chloride Level 105 mmol/L (98-107) Carbon Dioxide Level 25 mmol/L (21-32) Anion Gap 10 (6-14) Blood Urea Nitrogen 31 mg/dL (7-20) Creatinine 1.4 mg/dL (0.6-1.0) Estimated GFR (Cockcroft-Gault) 35.5 BUN/Creatinine Ratio 22 (6-20) Glucose Level 112 mg/dL (70-99) Calcium Level 9.0 mg/dL (8.5-10.1) Total Bilirubin 0.3 mg/dL (0.2-1.0) Aspartate Amino Transf (AST/SGOT) 13 U/L (15-37) Alanine Aminotransferase (ALT/SGPT) 11 U/L (14-59) Alkaline Phosphatase 103 U/L (46-116) Total Protein 7.4 g/dL (6.4-8.2) Albumin 3.0 g/dL (3.4-5.0) Albumin/Globulin Ratio 0.7 (1.0-1.7) Urine Collection Type Unknown Urine Color Yellow Urine Clarity Cloudy Urine pH 6.0 (<5.0-8.0) Urine Specific [place] 1.010 (1.000-1.030) Urine Protein Negative mg/dL (NEG-TRACE) Urine Glucose (UA) Negative mg/dL (NEG) Urine Ketones (Stick) Negative mg/dL (NEG) Urine Blood Trace (NEG) Urine Nitrite Negative (NEG) Urine Bilirubin Negative (NEG) Urine Urobilinogen Dipstick 0.2 mg/dL (0.2 mg/dL) Urine Leukocyte Esterase Large (NEG) Urine RBC Occ /HPF (0-2) Urine WBC Tntc /HPF (0-4) Urine Squamous Epithelial Cells Many /LPF Urine Bacteria Moderate /HPF (0-FEW) Brief Hospital Course Ms. Campos is a 89 old female who presented with chills. Patient was admitted overnight for concerns of cellulitis and the fact that she lives alone. Patient lives close to her daughter who checks on her frequently. Patient denies chills or any complaint or any complaints in the morning following her admission. She is requesting to be discharged. Urinalysis reflective of a dirty catch, but will cover for possible cellulitis. Leukocytosis could be reactive to chronic steroid treatment, but patient states last steroid she had was several days ago. Will discharge home with home health and close PCP follow-up. Discharge Information Condition at Discharge: Stable Follow Up: Weeks Disposition/Orders: D/C to Home w/ HH Scheduled Allopurinol (Allopurinol) 100 Mg Tablet, 100 MG PO DAILY for gout, (Reported) Entered as Reported by: YONATHAN GARCIA on 10/12/16 8373 Last Action: Continued on 02/18/20 0710 by VICTORIANO TORRE MD Aspirin (Aspir-Low) 81 Mg Tablet.dr, 1 TAB PO DAILY for blood thinner, #30 Ref 3 (Reported) Entered as Reported by: TELMA BERMEO on 03/02/14 1637 Last Action: Continued on 02/18/20709 by VICTORIANO TORRE MD Cephalexin (Keflex) 500 Mg Capsule, 1 CAP PO BID for Cellulitis for 5 Days, #10 Ref 0 Prescribed by: KEV AKERS MD on 02/18/20 1002 Citalopram Hydrobromide (Citalopram Hbr) 20 Mg Tablet, 1 TAB PO DAILY for depression, #30 Ref 5 (Reported) Entered as Reported by: SHAUN ARNOLD on 01/23/204 Last Action: Continued on 02/18/20709 by VICTORIANO TORRE MD Fexofenadine/Pseudoephedrine (Tova-D 24 Hour Tablet) 1 Each Tab.er.24h, 1 TAB PO DAILY, #30 Ref 2 (Reported) Entered as Reported by: YVON ABDI on 08/11/17 0250 Last Action: Converted on 02/18/20709 by VICTORIANO TORRE MD Furosemide (Furosemide) 40 Mg Tablet, 1 TAB PO DAILY for diuretic, #30 Ref 5 (Reported) Entered as Reported by: TELMA BERMEO on 03/02/14 1637 Last Action: Continued on 02/18/20709 by VICTORIANO TORRE MD Lactobacillus Rhamnosus Gg (Culturelle) 1 Each Cap.sprink, 1 CAP PO BID for Diarrhea for 7 Days, #14 Prescribed by: VICTORIANO TORRE MD on 11/28/18 1115 Last Action: Continued on 02/18/20709 by VICTORIANO TORRE MD Levothyroxine Sodium (Levothyroxine Sodium) 88 Mcg Tablet, 88 MCG PO DAILY, (Reported) Entered as Reported by: YVON ABDI on 08/11/17 0250 Last Action: Continued on 02/18/20709 by VICTORIANO TORRE MD Pantoprazole Sodium (Pantoprazole Sodium ) 40 Mg Tablet.dr, 40 MG PO DAILY for GERD, (Reported) Entered as Reported by: YONATHAN GARCIA on 10/12/16 2959 Last Action: Continued on 02/18/20709 by VICTORIANO TORRE MD Potassium Chloride (Klor-Con M20) 20 Meq Tab.er.prt, 20 MEQ PO DAILYWBKFT for supplement for 14 Days, #14 Prescribed by: KACIE ECHEVERRIA MD on 01/28/201040 Last Action: Continued on 02/18/20709 by VICTORIANO TORRE MD Risperidone (Risperdal) 1 Mg Tablet, 1 TAB PO QHS for mood for 30 Days, #30 Ref 0 (Reported) Entered as Reported by: SHAUN ARNOLD on 01/23/202125 Last Action: Continued on 02/18/20709 by VICTORIANO TORRE MD Simvastatin (Simvastatin) 80 Mg Tablet, 1 TAB PO QHS for lowers cholesterol, #90 Ref 3 (Reported) Entered as Reported by: TELMA BERMEO on 03/02/141636 Last Action: Converted on 02/18/20709 by VICTORIANO TORRE MD Ticagrelor (Brilinta) 90 Mg Tablet, 90 MG PO BID for heart, (Reported) Entered as Reported by: RIAZ DIAZ on 11/26/182222 Last Action: Continued on 02/18/20709 by VICTORIANO TORRE MD [Diclofenac Sodium] 100 GM GEL..GRAM., 1 HESHAM TP BID for arthritis for 14 Days, #28 Prescribed by: KACIE ECHEVERRIA MD on 01/28/201040 Last Action: Converted on 02/18/20709 by VICTORIANO TORRE MD Scheduled PRN Benzocaine/Menthol (Sore Throat Lozenge) 1 Each Lozenge, 1 ROB PO PRN Q2HRS PRN for SORE THROAT for 14 Days, #60 Prescribed by: KACIE ECHEVERRIA MD on 01/28/201040 Last Action: Continued on 02/18/20709 by VICTORIANO TORRE MD Tramadol Hcl (Tramadol Hcl) 50 Mg Tablet, 25 MG PO BID PRN for PAIN, Ref 0 (Reported) Entered as Reported by: SHAUN ARNOLD on 01/23/202125 Last Action: Continued on 02/18/20709 by VICTORIANO TORRE MD Discontinued Medications Cephalexin (Keflex) 500 Mg Capsule, 1 CAP PO QID for 5 Days, #20 Ref 0 Prescribed by: KOKO CASSIDY on 02/18/20 0125 Prednisone (Prednisone ) 10 Mg Tablet, 10 MG PO DAILY for gout for 10 Days, #10 Prescribed by: KACIE ECHEVERRIA MD on 01/28/20 1041 Justicifation of Admission Dx: Justifications for Admission: Justification of Admission Dx: Yes Sepsis: Infection Cellulitis: Cellulitis KEV AKERS MD Feb 18, 2020 09:57
--- NOTE | 2020-02-18 10:05 | DISCH ---
DISCHARGE INSTRUCTIONS Condition on Discharge Condition on Discharge: Stable Activity After Discharge Activity Instructions for Disc: Resume previous activity, Other ROM activity (Recommend elevating legs above the level of your heart, as if you have leg swelling or redness, this may not be a result of infection.) Bathing Instructions: Shower-keep dressing dry Lifting Instructions after Dis: No heavy lifting Exercise Instruction after Dis: Progress as tolerated Driving Instructions after Dis: Do not drive today Weight Bearing Status after Di: Non weight bearing Diet after Discharge Diet after Discharge: Cardiac Diet Texture: Regular Liquid Texture: Thin Liquid Wound Incision Care Wound/Incision Care: Keep wound/cast CDI Checks after Discharge Checks after discharge: Check blood press - daily, Weigh Yourself Daily Treatment/Equipment after DC Adaptive Equipment Issued: Catalina wheeled KEV Delatorre MD Feb 18, 2020 10:05
[2020-02-18 11:00] VITALS: BP_SYST 113; BP_SYST 117; BP_DIAS 51; BP_DIAS 60
--- NOTE | 2020-02-18 11:54 | EKG ---
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
--- NOTE | 2020-02-18 12:15 | NUR ---
SS following for discharge planning. SS reviewed pt chart and discussed with pt RN. Pt is from home and is currently on room air. Discharge order on the chart for home with self care.
[2020-02-18 15:00] VITALS: BP 113/51
[2020-02-18 19:00] VITALS: BP 121/60
[2020-02-18] MEDS: CEPHALEXIN 250 MG CAPSULE. PO SCH (20:48)
[2020-02-18] MEDS ORDERED: risperiDONE 1 MG TABLET. PO SCH (21:00)
[2020-02-18] MEDS ORDERED: SIMVASTATIN 40 MG TABLET. PO SCH (21:00)
[2020-02-18 22:58] VITALS: BP 130/65
[2020-02-19 03:00] VITALS: BP 104/60
[2020-02-19] MEDS: LEVOTHYROXINE 88 MCG TABLET PO SCH (05:50)
[2020-02-19 07:00] VITALS: BP 116/50
[2020-02-19] MEDS: FUROSEMIDE 40 MG TABLET. PO SCH (08:20)
[2020-02-19] MEDS: POTASSIUM CHLORIDE 20 MEQ TABLET.ER. PO SCH (08:22)
[2020-02-19] MEDS: ASPIRIN ENTERIC COATED 81 MG TABLET.DR. PO SCH (08:23)
[2020-02-19] MEDS: LACTOBACILLUS RHAMNOSUS GG 1 CAPSULE. PO SCH (08:23)
[2020-02-19] MEDS: ALLOPURINOL 100 MG TABLET. PO SCH (08:23)
[2020-02-19] MEDS: PANTOPRAZOLE 40 MG TABLET.DR. PO SCH (08:23)
[2020-02-19] MEDS: CEPHALEXIN 250 MG CAPSULE. PO SCH (08:23)
[2020-02-19] MEDS: CETIRIZINE HCL 10 MG TABLET. PO SCH (08:23)
[2020-02-19] MEDS: CITALOPRAM 20 MG TABLET. PO SCH (08:23)
[2020-02-19] MEDS: TICAGRELOR 90 MG TABLET. PO SCH (08:30)
[2020-02-19] MEDS: DICLOFENAC SODIUM 1% TOPICAL GEL 100GM TUBE. TP SCH (08:30)
[2020-02-19] MEDS: PSEUDOEPHEDRINE ER 120 MG TABLET.ER. PO SCH (08:30)
--- NOTE | 2020-02-19 10:17 | PDOC ---
[facility] PROGRESS NOTE Date of Service DOS: DATE: 02/19/20 TIME: 10:13 Chief Complaint Chief Complaint Leukocytosis Cellulitis Chronic stasis dermatitis Chronic edema Chronic renal sufficiency Malnutrition Plan: Patient states last time she had any steroids was her last hospitalization roughly 5 days ago. Leukocytosis may be reactive as she is afebrile and clinically does not appear ill. The swelling of her legs is consistent with chronic lymphedema. Will discharge with oral antibiotics to cover for cellulitis and recommend leg elevation at home. Urinalysis reflective of a contaminated urine catch and not UTI, and patient has no urinary symptoms. Advanced care planning was discussed with patient for approximately 15 minutes, patient states that she does not want any aggressive end-of-life procedures including chest compression and intubation, she would like her CODE STATUS to be DNR. History of Present Illness History of Present Illness Patient is a 89-year-old female with past medical history of chronic lymphedema, chronic stasis dermatitis, who presents to the ER with complaints of chills that began yesterday. She denies any associated fever. She presented with swollen and red legs concerning for cellulitis. She was admitted mostly for her debility and the fact that she lives alone, and started on Keflex. At the time of my evaluation patient states her chills and symptoms have resolved, and she would like to go home. She lives close to her daughter who checks on her daily, and she can follow-up closely with her PCP. She denies any fevers, dysuria, urinary frequency, urinary urgency, or suprapubic tenderness. 02/19/2020 Patient states she feels well, still denying urinary symptoms. Discussed elevating legs above the level of her heart 3 times daily provement of her chronic leg swelling. Patient will discharge home today with home health. Discussed with RN. Vitals/I&O Vitals/I&O: Vital Signs Date Time Temp Pulse Resp B/P (MAP) Pulse Ox O2 Delivery O2 Flow Rate FiO2 02/19/20 08:00 Room Air 02/19/20 07:00 97.8 83 21 116/50 (72) 97 97.8 I & O 02/18/20 02/18/20 02/19/20 15:00 23:00 07:00 Intake Total 350 ml 250 ml 580 ml Output Total 400 ml Balance 350 ml 250 ml 180 ml Physical Exam General: Alert, Oriented X3 Heart: Regular rate Lungs: Clear Abdomen: Normal bowel sounds Extremities: Other (Bilateral lower extremity swelling, mild erythema) Skin: No breakdown Review of Systems Review of Systems: Patient denies significant leg pain, denies dysuria, denies fever, denies chest pain. Assessment and Plan Assessmemt and Plan Problems Medical Problems: (1) Adult failure to thrive Status: Acute (2) Cellulitis Status: Acute (3) Chills Status: Acute (4) Unable to ambulate Status: Acute Comment Review of Relevant I have reviewed the following items javan (where applicable) has been applied. Medications: Current Medications Medications (Trade) Dose Ordered Sig/Dimple Route PRN Reason Start Time Stop Time Status Last Admin Dose Admin Risperidone (RisperDAL) 1 mg QHS PO 02/18/20 21:00 02/18/20 20:48 Simvastatin (Zocor) 80 mg QHS PO 02/18/20 21:00 02/18/20 20:48 Cephalexin HCl (Keflex) 500 mg BID PO 02/18/20 21:00 02/19/20 08:23 Justifications for Admission Other Justification sepsis KEV AKERS MD Feb 19, 2020 10:17
--- NOTE | 2020-02-19 10:21 | SNU/HH DC ---
DISCHARGE WITH HOME HEALTH DISCHARGE INFORMATION: Discharge Date: Feb 19, 2020 Final Diagnosis: Problems Medical Problems: (1) Adult failure to thrive Status: Acute (2) Cellulitis Status: Acute (3) Chills Status: Acute (4) Unable to ambulate Status: Acute Condition on Discharge: Stable CODE STATUS: Code Status: DNR/DNI HOME HEALTH: Face to Face: I certify this patient is under my care and that I, or a nurse practitioner or physician's media center assistant working with me, had a face to face encounter that meets the physician face to face encounter requirements with this patient on 02/19/2020. RN For Eval/Treatment: Yes Physical Therapy For: Evalulation/Treatment Occupational Therapy For: Evaluation/Treatment Pt Meets Homebound Status: Poor coordination w/ amb., Extreme weakness w/ amb. POST DISCHARGE ORDERS: Activity Instructions for Disc: Activity as tolerated, Other ROM activity (Elevate legs above the level of the heart 30 minutes 3 times daily) Weight Bearing Status after Di: As tolerated Bathing Instructions: Shower-keep dressing dry DIET AFTER DISCHARGE: Cardiac Wound/Incision Care: Keep wound/cast CDI CHECKS AFTER DISCHARGE: Checks after discharge: Check blood press - daily, Check your Temp as needed, Weigh Yourself Daily Comment: take your antibiotics as prescribed FOLLOW-UP: Follow Up With: your primary physician DC TO SNF LABS: CBC, CMP TREATMENT/EQUIPMENT ORDERS: Adaptive Equipment Issued: Front wheeled walker CERTIFICATION STATEMENT: Certification Statement: Certification Statement: Based on the above finding, I certify that this patient is confined to the home and needs intermittent long term care, physical therapy and/or speech therapy, or continues to need occupational therapy.~ This patient is under my care, and I have initiated the establishment of the plan of care.~ This patient will be followed by myself or a community physician who will periodically review the plan of care. Home Meds Active Scripts Cephalexin (KEFLEX) 500 Mg Capsule, 1 CAP PO BID for Cellulitis for 5 Days, #10 CAP 0 Refills Prov:KEV AKERS MD 02/18/20 Benzocaine/Menthol (SORE THROAT LOZENGE) 1 Each Lozenge, 1 ROB PO PRN Q2HRS PRN for SORE THROAT for 14 Days, #60 LOZENGE Prov:KACIE ECHEVERRIA MD 01/28/20 Potassium Chloride (KLOR-CON M20) 20 Meq Tab.er.prt, 20 MEQ PO DAILYWBKFT for supplement for 14 Days, #14 TAB.SR Prov:KACIE ECHEVERRIA MD 01/28/20 [Diclofenac Sodium 1% Topical] 100 GM GEL..GRAM. No Conflict Check, 1 HESHAM TP BID for arthritis for 14 Days, #28 EACH Prov:KACIE ECHEVERRIA MD 01/28/20 Lactobacillus Rhamnosus Gg (CULTURELLE) 1 Each Cap.sprink, 1 CAP PO BID for Diarrhea for 7 Days, #14 CAP Prov:VICTORIANO TORRE MD 11/28/18 Reported Medications Tramadol Hcl (TRAMADOL HCL) 50 Mg Tablet, 25 MG PO BID PRN for PAIN, TAB 0 Refills 01/23/20 Risperidone (RISPERDAL) 1 Mg Tablet, 1 TAB PO QHS for mood for 30 Days, #30 TAB 0 Refills 01/23/20 Citalopram Hydrobromide (CITALOPRAM HBR) 20 Mg Tablet, 1 TAB PO DAILY for depression, #30 TAB 5 Refills 01/23/20 Ticagrelor (BRILINTA) 90 Mg Tablet, 90 MG PO BID for heart, TAB 11/26/18 Fexofenadine/Pseudoephedrine (YING-D 24 HOUR TABLET) 1 Each Tab.er.24h, 1 TAB PO DAILY, #30 TAB 2 Refills 08/11/17 Levothyroxine Sodium (LEVOTHYROXINE SODIUM) 88 Mcg Tablet, 88 MCG PO DAILY 08/11/17 Allopurinol (ALLOPURINOL) 100 Mg Tablet, 100 MG PO DAILY for gout, TAB 10/12/16 Pantoprazole Sodium (PANTOPRAZOLE SODIUM ) 40 Mg Tablet.dr, 40 MG PO DAILY fo r GERD, TAB 10/12/16 Aspirin (ASPIR-LOW) 81 Mg Tablet.dr, 1 TAB PO DAILY for blood thinner, #30 TAB 3 Refills 03/02/14 Simvastatin (SIMVASTATIN) 80 Mg Tablet, 1 TAB PO QHS for lowers cholesterol, #90 TAB 3 Refills 03/02/14 Furosemide (FUROSEMIDE) 40 Mg Tablet, 1 TAB PO DAILY for diuretic, #30 TAB 5 Refills 03/02/14 Discontinued Scripts Cephalexin (KEFLEX) 500 Mg Capsule, 1 CAP PO QID for 5 Days, #20 CAP 0 Refills Prov:KOKO CASSIDY DO 02/18/20 Prednisone (PREDNISONE ) 10 Mg Tablet, 10 MG PO DAILY for gout for 10 Days, #10 TAB Prov:KACIE ECHEVERRIA MD 01/28/20 KEV AKERS MD Feb 19, 2020 10:21
[2020-02-19 10:28] LABS: BASO % 0 % (0-3); EOS # 0.4 x10^3/uL (0.0-0.7); EOS % 4 % (0-3); HEMATOCRIT 29.5 % (36.0-47.0); HEMOGLOBIN 9.8 g/dL (12.0-15.5); LYMPH # 1.4 x10^3/uL (1.0-4.8); LYMPH % 15 % (24-48); MEAN CORPUSCULAR HEMOGLOBIN 29 pg (25-35); MEAN CORPUSCULAR HGB CONC 33 g/dL (31-37); MEAN CORPUSCULAR VOLUME 89 fL (79-100); MONO # 0.6 x10^3/uL (0.0-1.1); MONO % 7 % (0-9); NEUT # 6.8 x10^3/uL (1.8-7.7); NEUT % 73 % (31-73); PLATELET COUNT 284 x10^3/uL (140-400); RED BLOOD COUNT 3.32 x10^6/uL (3.50-5.40); RED CELL DISTRIBUTION WIDTH 18.3 % (11.5-14.5); WHITE BLOOD COUNT 9.2 x10^3/uL (4.0-11.0)
[2020-02-19 10:40] LABS: CALCIUM 8.9 mg/dL (8.5-10.1); CREATININE 1.5 mg/dL (0.6-1.0); GFR 32.8; POTASSIUM 3.9 mmol/L (3.5-5.1)
[2020-02-19 11:00] VITALS: BP 127/50
--- NOTE | 2020-02-19 11:42 | NUR ---
SS following up with discharge planning. SS reviewed pt chart and discussed with pt RN. Pt is currently on room air. Discharge order on the chart for home with home healthcare. Pt and pt's daughter requesting home healthcare with [facility], ; fax [phone], as they were previously on services. Discharge orders and referral were phoned and faxed to [facility]. Pt and pt's family requesting transportation to home after 1500. Pt will discharge today and return to home via [facility], , between 1530 and 1600. Pt and pt's daughter notified.
[2020-02-19 15:00] VITALS: BP 138/53
--- NOTE | 2020-02-19 15:30 | NUR ---
Discharge Note: NICKIE STAFFORD [address] [place] [address] Discharge instructions and discharge home medications reviewed with Patient and a copy given. All questions have been answered and understanding verbalized. The following instructions and handouts were given: discharge instructions, cellulitis info. Discontinued lines and drains: Peripheral IV intact. Patient discharged to Home w/services with [facility] via Wheelchair at 1530.
== END 2020-02-19 15:30 | disposition home health service (06) ==
LOC: ER 22:43 → 2 SOUTH 02-18 02:51 → INTOOBSV 02-18 02:51
PROVIDERS: ADMIT Internal Medicine; ATTEND Internal Medicine
DX: R62.7 Adult failure to thrive (principal); I13.0 Hypertensive heart and chronic kidney disease with heart failure and stage 1 through stage 4 chronic kidney disease, or unspecified chronic kidney disease; I50.9 Heart failure, unspecified; E78.00 Pure hypercholesterolemia, unspecified; I25.2 Old myocardial infarction; N18.9 Chronic kidney disease, unspecified; Z90.49 Acquired absence of other specified parts of digestive tract; Z90.710 Acquired absence of both cervix and uterus
CPT/HCPCS: 36415; 71045; 80048; 80053; 81001; 84145; 85007; 85025; 87086; 93005; 99285; G0378; G0379